=== PATIENT | male | born 1985 | race Caucasian/White ===

== ENCOUNTER → 2016-11-30 | Outpatient (CLI) | payer BC ==
[~2016-11-30] MED LIST: AMOX1TAB43 PO; ATV/1 PO; BISA1TAB15 PO; CEFP200T14 PO; CETI10TA84 PO; COENZYME B COMPLEX PO; CRANCAP PO; DEXL30CA5 PO; DEXL60CA4 PO; DOCU100C31 PO; ESCI1TAB10 PO; FLUC100T4 PO; GABA600T PO; IBUP-1050 PO; METH10TA2 PO; MITOCORE PO; OXYC-57 PO; OXYC1TAB3 PO; SENN-56 PO; VALA500T39 PO; ZNTT/150 PO; [UNRECOGNIZED DRUG - OTHER] PO; [UNRECOGNIZED DRUG - OTHER] PO; [UNRECOGNIZED DRUG - OTHER] PO; [UNRECOGNIZED DRUG - OTHER] PO; [UNRECOGNIZED DRUG - OTHER] PO; [UNRECOGNIZED DRUG - OTHER] PO; dexamethasone PO
--- NOTE | 2016-11-30 15:09 | DIAGNOSTIC IMAGING REPORT ---
(RENAL)RETROPERITONEA COMP HISTORY: Lymphoma ACUTE RENAL FAILURE, NON- HODGKIN LYMPHOMA COMPARISON: None. FINDINGS: Right kidney: Maximum dimension 13.7 cm. Mild fullness right renal collecting system. Hypoechoic nodules throughout the entire right kidney with the largest measuring 5 cm lower pole. Normal corticomedullary differentiation and cortical thickness. Left kidney: Maximum dimension 12.9 cm. No evidence for hydronephrosis. Hypoechoic nodules at the lower and mid pole region measuring 2.5 and 2.2 cm are directly. Normal corticomedullary differentiation and cortical thickness. Bladder: No bladder wall thickening. The bilateral ureteral jets were identified. IMPRESSION: Multinodular appearance to the kidneys bilaterally. 2. Given the patient's history is impossible to entirely exclude the possibility of neoplastic changes. Either MRI of the kidneys or multi phase CT evaluation kidneys suggested as initial follow-up depending on renal function parameters. The above report was generated using voice recognition software. It may contain grammatical, syntax or spelling errors. Electronically signed by: Ivan Moreno M.D. 11/30/2016 3:08 PM Dictated Date/Time: 11/30/2016 3:05 PM
== END | disposition home or self-care (01) ==
LOC: C.ULTR 14:31
PROVIDERS: ATTEND Internal Medicine Hematology & Oncology
DX: C83.35 Diffuse large B-cell lymphoma, lymph nodes of inguinal region and lower limb (principal)

== ENCOUNTER 2016-12-15 00:08 | Inpatient (IN) | payer BC ==
[~2016-12-15] VITALS: Ht 185.4 cm; Wt 93.1 kg
[2016-12-15] VITALS (7 sets, daily range): BP systolic 105–131; BP diastolic 61–72; PULSE 76–89; TEMP 36.7–37.2; O2SAT 96–100; Ht 185.4 cm; Wt 93.1 kg
[~2016-12-15 00:08] MED LIST changes: -ATV/1 PO; -BISA1TAB15 PO; -CEFP200T14 PO; -COENZYME B COMPLEX PO; -CRANCAP PO; -DEXL30CA5 PO; -DOCU100C31 PO; -ESCI1TAB10 PO; -GABA600T PO; -METH10TA2 PO; -MITOCORE PO; -OXYC1TAB3 PO; -SENN-56 PO; -VALA500T39 PO; -[UNRECOGNIZED DRUG - OTHER] PO; -[UNRECOGNIZED DRUG - OTHER] PO; -[UNRECOGNIZED DRUG - OTHER] PO; -[UNRECOGNIZED DRUG - OTHER] PO; -[UNRECOGNIZED DRUG - OTHER] PO; -[UNRECOGNIZED DRUG - OTHER] PO; -dexamethasone PO
[2016-12-15] MEDS ORDERED: ACETAMINOPHEN 500 MG TAB PO STA (00:52)
--- NOTE | 2016-12-15 00:54 | EMERGENCY ROOM VISIT NOTE ---
History Report prepared by Alie: Kian Crawford Under the Supervision of: Dr. Jessie Robert D.O. First contact with patient: 00:17 Chief Complaint: FEVER Stated Complaint: CANCER PATIENT, FEVER History of Present Illness The patient is a 31 year old male who presents to the Emergency Room with complaints of a constant fever starting earlier tonight. The patient states that he has a history of lymphoma, and he has no immune system from being on chemotherapy. The patient states that he talked to his oncologist, and they stated that if he got a fever, then he should come to the ED for evaluation. The patient additionally is complaining of a sore throat and chills, though he denies any runny nose. The patient additionally states that he has been getting red spots on his chest, abdomen, and lower extremities. He additionally states that he has rib pain due to a cracked rib from the lymphoma. The patient states that he is currently on chemotherapy, and he has done two different clinical trials. He additionally states that he is on a bowel regimen. He denies any urinary symptoms or hematochezia. The patient states that he had a Neupogen shot two days ago and Neulasta around 1330 today. The patient states that his son is in daycare, and he currently has a runny nose. Source of History: patient Onset: earlier tonight Position: other (global) Quality: other (fever) Timing: constant Associated Symptoms: + chills, + sorethroat, No hematochezia, No urinary symptoms Review of Systems See HPI for pertinent positives & negatives. A total of 10 systems reviewed and were otherwise negative. Past Medical & Surgical Medical Problems: (1) GERD (gastroesophageal reflux disease) (2) Lymphoma (3) Neutropenic fever Surgical Problems: (1) History of liver biopsy Family History Cancer Heart disease Social History Smoking Status: Never Smoker Marital Status: Housing Status: lives with significant other Occupation Status: employed Current/Historical Medications Scheduled Amoxicillin & Pot Clavulanate (Amoxicillin/Clavulanate P), 1 TAB PO Q12 Cranberry-Milk Thistle (Liver & Kidney Cleanser), 1 CAP PO AMHS Dexlansoprazole (Dexilant), 60 MG PO QAM Docusate Sodium (Docusate Sodium), 100 MG PO QAM Docusate Sodium (Docusate Sodium), 200 MG PO HS Escitalopram Oxalate (Lexapro), 20 MG PO QAM Fluconazole (Diflucan), 200 MG PO DAILY Gabapentin (Neurontin), 600 MG PO Q8 Lorazepam (Ativan), 1 MG PO HS Methadone Hcl (Dolophine), 10 MG PO Q8 Sennosides (Senna-Lax), 2 TABS PO AMHS Valacyclovir Hcl (Valtrex), 500 MG PO QAM [adek-pro k-102], 2 CAP PO QAM [coenzyme b-complex], 1 CAP PO QAM [coloctrum-ld], 2 CAP PO AMHS [lipotropix], 2 CM PO QAM [mitocore], 2 CAP PO AMHS [reacted zinc], 2 CAP PO QAM [renatrophin pmg], 2 CAP PO QAM [tribulus complex], 2 CAP PO QAM Scheduled PRN Bisacodyl (Bisacodyl), 1 TAB PO QAM PRN for Constipation Bisacodyl (Bisacodyl), 2 TAB PO HS PRN for Constipation Dexlansoprazole (Dexilant), 30 MG PO HS PRN for gerd Oxycodone Immediate Rel Tab (Roxicodone Ir), 10 MG PO Q8 PRN for Pain Allergies Coded Allergies: Prochlorperazine (Verified Allergy, Severe, change in mental status, ) Erythromycin (Verified Allergy, Intermediate, GI SYMPTOMS, 12/15/16) Physical Exam Vital Signs Date Time Temp Pulse Resp B/P (MAP) Pulse Ox O2 Delivery O2 Flow Rate FiO2 12/15/16 02:00 95 16 122/68 99 Room Air 12/15/16 00:10 38.8 100 16 121/73 100 Room Air Physical Exam HEENT: Head - normocephalic and atraumatic Pupils are equal, round, and reactive to light. Extraocular eye muscles are intact, and sclera are anicteric. Nose - moist nasal mucosa without discharge. Mouth - moist buccal mucosa. Oropharynx is nonerythematous and there is no tonsillar exudate or edema noted. Neck: Supple; no JVD, nuchal rigidity, cervical lymphadenopathy. Heart: tachycardic rate and rhythm. There is a normal S1 and S2 with no murmurs , clicks, or gallops appreciated. Lungs: Clear to auscultation bilaterally with no wheezes, rales, or rhonchi. Abdomen: Soft, completely nontender, nondistended, with good bowel sounds. There are no palpable pulsatile masses or hepatosplenomegaly. There is no guarding, rigidity, or rebound noted. Extremities: No evidence of cyanosis, clubbing, or edema. There are easily palpable peripheral pulses. Skin: Erythematous, blanchable, and macular lesions concentrated on the anterior chest and abdomen, and a couple on his lower extremities. Surgical incision on the left axilla appears well healing. Multiple indurated lymph nodes over the left flank. Medical Decision & Procedures ER Provider Diagnostic Interpretation: X-ray results as stated below per interpretation by me: Lymphadenopathy in the left lateral chest wall. Narrow mediastinum. Hilar lymphadenopathy. Accessed port in the right upper chest. Laboratory Results Test 12/15/16 00:37 12/15/16 00:40 12/15/16 00:50 12/15/16 01:20 Bedside Lactic Acid Venous 1.54 mmol/L (0.90-1.70) Anisocytosis PRESENT Prothrombin Time 10.7 SECONDS (9.0-12.0) Prothromb Time International Ratio 1.0 (0.9-1.1) Influenza Type A Antigen Neg for Influ A (NEG) Influenza Type B Antigen Neg for Influ B (NEG) Urine Color YELLOW Urine Appearance CLEAR (CLEAR) Urine pH 5.5 (4.5-7.5) Urine Specific [place] 1.014 (1.000-1.030) Urine Protein NEG (NEG) Urine Glucose (UA) NEG (NEG) Urine Ketones NEG (NEG) Urine Occult Blood NEG (NEG) Urine Nitrite NEG (NEG) Urine Bilirubin NEG (NEG) Urine Urobilinogen NEG (NEG) Urine Leukocyte Esterase NEG (NEG) Urine WBC (Auto) 1-5 /hpf (0-5) Urine RBC (Auto) 0-4 /hpf (0-4) Urine Hyaline Casts (Auto) 0 /lpf (0-5) Urine Epithelial Cells (Auto) 0-5 /lpf (0-5) Urine Bacteria (Auto) NEG (NEG) Medications Administered Medications (Trade) Dose Ordered Sig/Sidney Route Start Time Stop Time Status Last Admin Dose Admin Acetaminophen (Tylenol Tab) 1,000 mg NOW STAT PO 12/15/16 00:52 12/15/16 00:53 PR 12/15/16 01:04 1,000 MG Imipenem/ Cilastatin Sodium 500 mg/Dextrose 110 ml @ 100 mls/hr NOW STAT IV 12/15/16 01:57 12/15/16 03:02 DC 12/15/16 01:57 100 MLS/HR Vancomycin HCl 1000 mg/Sodium Chloride 270 ml @ 125 mls/hr NOW STAT IV 12/15/16 02:00 12/15/16 04:09 DC 12/15/16 03:11 125 MLS/HR Procedure Tylenol Tab PO. Imipenem/ Cilastin Sodium 500mg/ Dextrose IV, Vancomycin HCl 1000mg/ Sodium Chloride IV ED Course 0047: Past medical records reviewed. The patient was evaluated in room B7. A complete history and physical exam was performed. I reviewed the patient's labs from 12/13,and at that time he had a white blood cells of 0.7, hemoglobin of 7.8 , hematocrit of 24.4, and his absolute neutrophil count was 50. His port was accessed. 0052: Tylenol Tab 1000mg PO. A septic protocol was performed. The patient had a chest x-ray. 0157: Imipenem/ Cilastin Sodium 500mg/ Dextrose 110ml @ 100mls/hr IV 0200: Vancomycin HCl 1000mg/ Sodium Chloride 270ml @ 125mls/hr IV 0203: I reevaluated the patient, and I discussed his labs and results. I discussed the treatment plan, and he was agreeable. 0214: Discussed the patient's case with Dr. Reina. The patient will be evaluated for further management. Medical Decision The patient is a 31 year old male who presents to the ED with a fever. Differential diagnosis includes neutropenic fever, sepsis, pharyngitis, pneumonia. Lab results show: White count of 1.13, absolute neutrophil count of 0, hemoglobin of 7, hematocrit of 21.2, flu swab negative, BUN 29, creatinine of 2.0, lactic acid 1.54. glucose 117, LFT normal, and UA is negative. This is a 31-year-old male patient with recurrent lymphoma who presents to the emergency department with a fever. The patient was noted to be neutropenic will from a couple of days ago as he is currently on chemotherapy. His oncologist directed him here for fever workup. No specific source could be identified, however the patient's absolute neutrophil count was 0. I discussed the case with the [facility] hospitalist. Prolactin antibiotics were started. He was noted to have an elevated BUN and creatinine. Crystalloid therapy will be started. Medication Reconcilliation Current Medication List: was personally reviewed by me Blood Pressure Screening Patient's blood pressure: Normal blood pressure Consults Time Called: 0205 Consulting Physician: Dr. Reina Returned Call: [phone] Discussed the patient's case with Dr. Reina. The patient will be evaluated for further management. Impression Primary Impression: Neutropenic fever Additional Impression: Acute kidney injury Scribe Attestation The scribe's documentation has been prepared under my direction and personally reviewed by me in its entirety. I confirm that the note above accurately reflects all work, treatment, procedures, and medical decision making performed by me. Departure Information Dispostion Being Evaluated By Hospitalist Referrals Dorian Franz M.D. (PCP) Patient Instructions My [facility] Health Problem Qualifiers
[2016-12-15 01:26] LABS: BUN/CREATININE RATIO 14.5 (10-20); CALCIUM 8.4 mg/dl (8.5-10.1); POTASSIUM 3.9 mmol/L (3.5-5.1)
[2016-12-15 01:29] LABS: ALB/GLOB RATIO 0.9 (0.9-2)
[2016-12-15 01:32] LABS: HEMATOCRIT 21.2 % (42-52); MEAN CELL VOLUME 80.3 fL (80-100); MEAN CORPUSCULAR HEMOGLOBIN 26.5 pg (25-34); MEAN PLATELET VOLUME 8.1 fL (7.4-10.4); PLATELET COUNT 223 K/uL (130-400); RED BLOOD COUNT 2.64 M/uL (4.7-6.1); WHITE BLOOD COUNT 1.13 K/uL (4.8-10.8)
[2016-12-15 01:33] LABS: URINE APPEARANCE CLEAR (CLEAR); URINE BILIRUBIN NEG (NEG); URINE COLOR YELLOW; URINE EPITHELIAL CELL AUTO 0-5 /lpf (0-5); URINE NITRITE NEG (NEG); URINE PH 5.5 (4.5-7.5); URINE SPECIFIC GRAVITY 1.014 (1.000-1.030); UROBILINOGEN NEG (NEG); ZZUR CULT IF INDIC CLEAN CATCH NO
[2016-12-15 01:33] LABS: PARTIAL THROMBOPLASTIN RATIO 1.9; PROTHROMBIN TIME (PATIENT) 10.7 SECONDS (9.0-12.0)
[2016-12-15 01:35] LABS: ANISOCYTOSIS PRESENT
[2016-12-15 01:40] LABS: BASO ABS # 0.07 K/uL (0-0.2); BASOPHIL % 5.9 % (0-2); COMPLETE YES; EOSINOPHIL % 13.9 %; LYMPH ABS # 0.46 K/uL (1.2-3.4); LYMPHOCYTE % 40.6 %
[2016-12-15 01:41] LABS: MANUAL MICROSCOPIC REQUIRED? NO; REVIEW REQ? NO
[2016-12-15] MEDS ORDERED: IMIPENEM/CILASTATIN IV 500 MG in DEXTROSE 5% 100ML 100 ML IV STA (01:57)
[2016-12-15] MEDS ORDERED: DOCU100C31 PO ×2 (01:59)
[2016-12-15] MEDS ORDERED: ESCI1TAB10 PO (01:59)
[2016-12-15] MEDS ORDERED: BISA1TAB15 PO ×2 (02:00)
[2016-12-15] MEDS ORDERED: SENN-56 PO (02:00)
[2016-12-15] MEDS ORDERED: VANCOMYCIN INJ 1,000 MG in SODIUM CHLORIDE 0.9% 250ML 250 ML IV STA (02:00)
[2016-12-15] MEDS ORDERED: VALA500T39 PO (02:00)
[2016-12-15] MEDS ORDERED: ATV/1 PO (02:02)
[2016-12-15] MEDS ORDERED: DEXL30CA5 PO (02:02)
[2016-12-15] MEDS ORDERED: GABA600T PO (02:03)
[2016-12-15] MEDS ORDERED: METH10TA2 PO (02:03)
[2016-12-15] MEDS ORDERED: OXYC1TAB3 PO (02:03)
[2016-12-15] MEDS ORDERED: [UNRECOGNIZED DRUG - OTHER] PO (02:08)
[2016-12-15] MEDS ORDERED: [UNRECOGNIZED DRUG - OTHER] PO (02:08)
[2016-12-15] MEDS ORDERED: MITOCORE PO (02:08)
[2016-12-15] MEDS ORDERED: [UNRECOGNIZED DRUG - OTHER] PO (02:11)
[2016-12-15] MEDS ORDERED: CRANCAP PO (02:11)
[2016-12-15] MEDS ORDERED: [UNRECOGNIZED DRUG - OTHER] PO (02:11)
[2016-12-15] MEDS ORDERED: [UNRECOGNIZED DRUG - OTHER] PO (02:11)
[2016-12-15] MEDS ORDERED: COENZYME B COMPLEX PO (02:12)
[2016-12-15] MEDS ORDERED: [UNRECOGNIZED DRUG - OTHER] PO (02:12)
[2016-12-15] MEDS ORDERED: LEVOFLOXACIN CONSULT ACTIVE PRN (02:15)
[2016-12-15] MEDS ORDERED: ACETAMINOPHEN 325 MG TAB PO PRN (02:45)
[2016-12-15] MEDS ORDERED: ONDANSETRON INJ 2 MG/ML 2 ML VIAL IV PRN (02:45)
[2016-12-15] MEDS ORDERED: SODIUM CHLORIDE 0.9% 1000ML 1,000 ML, SODIUM CHLORIDE 0.9% 1000ML 1,000 ML IV STA (03:54)
[2016-12-15] MEDS ORDERED: PIPERACILL/TAZOBAC IV 4.5 GM in DEXTROSE 5% 100ML IV ONE (04:00)
[2016-12-15] MEDS ORDERED: PIPERACILL/TAZOBAC IV 4.5 GM in DEXTROSE 5% 100ML 100 ML IV SCH (04:00)
[2016-12-15] MEDS ORDERED: PIPERACILL/TAZOBAC CONSULT ACTIVE PRN (04:00)
[2016-12-15] MEDS ORDERED: LACTATED RINGER'S 1000ML 1,000 ML IV SCH (04:00)
[2016-12-15] MEDS ORDERED: VANCOMYCIN CONSULT ACTIVE PRN (04:15)
[2016-12-15] MEDS: LEVOFLOXACIN / D5W 750 MG in PREMIXED IN D5W 150 ML IV SCH (04:26)
[2016-12-15] MEDS ORDERED: VANCOMYCIN INJ 1,500 MG in SODIUM CHLORIDE 0.9% 500ML 500 ML IV SCH (05:00)
--- NOTE | 2016-12-15 05:39 | DIAGNOSTIC IMAGING REPORT ---
CHEST ONE VIEW PORTABLE CLINICAL HISTORY: 31 years-old Male presenting with Sepsis, history of lymphoma. TECHNIQUE: Portable upright AP view of the chest was obtained. COMPARISON: PET/CT from 01/16/2016. FINDINGS: Right internal jugular Mediport has been accessed and terminates in the SVC. Cardiomediastinal silhouette normal. Large lobular opacities project over the peripheral made and lower left lung likely correlating to extrapleural and chest wall lymphomatous disease seen on most recent PET from December 2015. The presence of opacity in the peripheral left mid lung region does not correlate with exact site of lymphomatous involvement on prior PET, suggesting new disease. Apart from these opacities, no other focal infiltrate. No large effusion or pneumothorax. Osseous structures normal. Upper abdomen normal. IMPRESSION: 1. Evidence of suspected extrapleural/chest wall lymphomatous involvement in the left mid and lower chest. The distribution suggests progression of disease from prior PET/CT in December 2015. 2. No convincing evidence of acute cardiopulmonary disease. Electronically signed by: Eber Panchal M.D. 12/15/2016 5:38 AM Dictated Date/Time: 12/15/2016 5:35 AM
--- NOTE | 2016-12-15 06:08 | History and Physical ---
History & Physical Date & Time of Service: Dec 15, 2016 at 02:18 Chief Complaint: Cancer Patient, Fever Primary Care Physician: Dorian Franz M.D. History of Present Illness Source: patient, clinic records, hospital records Mr Reyes is a 31 year old male who presents to the ER with Fever. He has a history of large B cell lymphoma currently undergoing chemotherapy under an oncologist in [place] but also followed by Dr Carbone in [place]. He notes have a sore throat that started on Saturday in addition his 2 year old son has had nasal congestion recently. Otherwise no known sick contacts. He has been getting red blanching raised macules on his chest back and shoulders over the past week which his oncologist plans to biopsy due to concern this is his lymphoma metastasizing. He denies any neck stiffness, headache, nausea, vomiting, abdominal pain, diarrhea or urinary symptoms. He has chronic pain in his suprapubic region but this remains unchanged. Past Medical/Surgical History Medical Problems: (1) GERD (gastroesophageal reflux disease) Status: Chronic (2) Lymphoma Status: Chronic Surgical Problems: (1) History of liver biopsy Status: Resolved Family History Cancer Heart disease Social History Smoking Status: Never Smoker Smokeless Tobacco Use: No Alcohol Use: none Drug Use: none Marital Status: Housing status: lives with family Occupational Status: employed Immunizations History of Influenza Vaccine: No History of Tetanus Vaccine?: Unknown History of Pneumococcal: Unknown History of Hepatitis B Vaccine: Unknown Multi-Drug Resistant Organisms History of MDRO: No Allergies Coded Allergies: Prochlorperazine (Verified Allergy, Severe, change in mental status, ) Erythromycin (Verified Allergy, Intermediate, GI SYMPTOMS, 12/15/16) Home Medications Scheduled Amoxicillin & Pot Clavulanate (Amoxicillin/Clavulanate P), 1 TAB PO Q12 Cranberry-Milk Thistle (Liver & Kidney Cleanser), 1 CAP PO AMHS Dexlansoprazole (Dexilant), 60 MG PO QAM Docusate Sodium (Docusate Sodium), 100 MG PO QAM Docusate Sodium (Docusate Sodium), 200 MG PO HS Escitalopram Oxalate (Lexapro), 20 MG PO QAM Fluconazole (Diflucan), 200 MG PO DAILY Gabapentin (Neurontin), 600 MG PO Q8 Lorazepam (Ativan), 1 MG PO HS Methadone Hcl (Dolophine), 10 MG PO Q8 Sennosides (Senna-Lax), 2 TABS PO AMHS Valacyclovir Hcl (Valtrex), 500 MG PO QAM [adek-pro k-102], 2 CAP PO QAM [coenzyme b-complex], 1 CAP PO QAM [coloctrum-ld], 2 CAP PO AMHS [lipotropix], 2 CM PO QAM [mitocore], 2 CAP PO AMHS [reacted zinc], 2 CAP PO QAM [renatrophin pmg], 2 CAP PO QAM [tribulus complex], 2 CAP PO QAM Scheduled PRN Bisacodyl (Bisacodyl), 1 TAB PO QAM PRN for Constipation Bisacodyl (Bisacodyl), 2 TAB PO HS PRN for Constipation Dexlansoprazole (Dexilant), 30 MG PO HS PRN for gerd Oxycodone Immediate Rel Tab (Roxicodone Ir), 10 MG PO Q8 PRN for Pain Review of Systems Constitutional: + chills Eyes: No worsening of vision, No eye pain ENT: No hearing loss Respiratory: + cough (chronic), No sputum, No wheezing, No shortness of breath , No dyspnea on exertion Abdomen: + constipation (on bowel regimen secondary to pain medications), No pain, No nausea, No vomiting, No diarrhea Musculoskeletal: + muscle pain (left chest), No joint pain Genitourinary - Male: No hematuria, No dysuria, No urinary frequency Endocrine: + fatigue, No excessive thirst, No excessive urination Hematologic / Lymphatic: No abnormal bleeding/bruising Integumentary: + rash (small erythematous blanching macules on chest, back and shoulders) Physical Exam Vital Signs Date Time Temp Pulse Resp B/P (MAP) Pulse Ox O2 Delivery O2 Flow Rate FiO2 12/15/16 00:10 38.8 100 16 121/73 100 Room Air General Appearance: WD/WN, no apparent distress (appears tired) Head: normocephalic, atraumatic Eyes: normal inspection, PERRL, EOMI ENT: hearing grossly normal, pharynx normal (no tonsillar enlargement or exudate) Neck: supple Respiratory/Chest: chest non-tender, lungs clear, no respiratory distress, no accessory muscle use, + decreased breath sounds (left sided decreased) Cardiovascular: regular rate, rhythm, no murmur, normal peripheral pulses Abdomen/GI: normal bowel sounds, soft, + tenderness (mild suprapubic tenderness , no rebound or guarding) Back: no CVA tenderness Extremities/Musculoskelatal: no calf tenderness, normal capillary refill, no pedal edema 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0 32-36 g/dl Platelet Count 223 130-400 K/uL Mean Platelet Volume 8.1 7.4-10.4 fL RDW Standard Deviation 49.3 36.4-46.3 fL RDW Coefficient of Variation 17.1 11.5-14.5 % Neutrophils % (Manual) 0.0 % Lymphocytes % (Manual) 40.6 % Monocytes % (Manual) 39.6 % Eosinophils % (Manual) 13.9 % Basophils % (Manual) 5.9 0-2 % Neutrophils # (Manual) 0.00 1.4-6.5 K/uL Total Absolute Neutrophils 0.00 1.4-6.5 K/uL Lymphocytes # (Manual) 0.46 1.2-3.4 K/uL Total Absolute Lymphocytes 0.46 1.2-3.4 K/uL Monocytes # (Manual) 0.45 0.11-0.59 K/uL Eosinophils # (Manual) 0.16 0-0.5 K/uL Basophils # (Manual) 0.07 0-0.2 K/uL Anisocytosis PRESENT Prothrombin Time 10.7 9.0-12.0 SECONDS Prothromb Time International Ratio 1.0 0.9-1.1 Activated Partial Thromboplast Time 50.5 21.0-31.0 SECONDS Partial Thromboplastin Ratio 1.9 Sodium Level 134 136-145 mmol/L Potassium Level 3.9 3.5-5.1 mmol/L Chloride Level 99 98-107 mmol/L Carbon Dioxide Level 26 21-32 mmol/L Anion Gap 9.0 3-11 mmol/L Blood Urea Nitrogen 29 7-18 mg/dl Creatinine 2.00 0.60-1.40 mg/dl Est Creatinine Clear Calc Drug Dose 64.5 ml/min Estimated GFR () 49.4 Estimated GFR (Non- 42.6 BUN/Creatinine Ratio 14.5 10-20 Random Glucose 117 70-99 mg/dl Calcium Level 8.4 8.5-10.1 mg/dl Total Bilirubin 0.5 0.2-1 mg/dl Aspartate Amino Transf (AST/SGOT) 22 15-37 U/L Alanine Aminotransferase (ALT/SGPT) 19 12-78 U/L Alkaline Phosphatase 99 45-117 U/L Total Protein 5.9 6.4-8.2 gm/dl Albumin 2.8 3.4-5.0 gm/dl Globulin 3.1 2.5-4.0 gm/dl Albumin/Globulin Ratio 0.9 0.9-2 Influenza Type A Antigen Neg for Influ A NEG Influenza Type B Antigen Neg for Influ B NEG Urine Color YELLOW Urine Appearance CLEAR CLEAR Urine pH 5.5 4.5-7.5 Urine Specific [place] 1.014 1.000-1.030 Urine Protein NEG NEG Urine Glucose (UA) NEG NEG Urine Ketones NEG NEG Urine Occult Blood NEG NEG Urine Nitrite NEG NEG Urine Bilirubin NEG NEG Urine Urobilinogen NEG NEG Urine Leukocyte Esterase NEG NEG Urine WBC (Auto) 1-5 0-5 /hpf Urine RBC (Auto) 0-4 0-4 /hpf Urine Hyaline Casts (Auto) 0 0-5 /lpf Urine Epithelial Cells (Auto) 0-5 0-5 /lpf Urine Bacteria (Auto) NEG NEG Microbiology Results 12/15/16 Blood Culture, Received Pending 12/15/16 Blood Culture, Received Pending 12/15/16 Group A Streptococcus Screen - Final, Resulted SPECIMEN NEGATIVE FOR GROUP A BETA ST... 12/15/16 Group A Streptococcus Screen (JAMES), Resulted Pending Diagnostic Radiology CHEST ONE VIEW PORTABLE CLINICAL HISTORY: 31 years-old Male presenting with Sepsis, history of lymphoma. TECHNIQUE: Portable upright AP view of the chest was obtained. COMPARISON: PET/CT from 01/16/2016. FINDINGS: Right internal jugular Mediport has been accessed and terminates in the SVC. Cardiomediastinal silhouette normal. Large lobular opacities project over the peripheral made and lower left lung likely correlating to extrapleural and chest wall lymphomatous disease seen on most recent PET from December 2015. The presence of opacity in the peripheral left mid lung region does not correlate with exact site of lymphomatous involvement on prior PET, suggesting new disease. Apart from these opacities, no other focal infiltrate. No large effusion or pneumothorax. Osseous structures normal. Upper abdomen normal. IMPRESSION: 1. Evidence of suspected extrapleural/chest wall lymphomatous involvement in the left mid and lower chest. The distribution suggests progression of disease from prior PET/CT in December 2015. 2. No convincing evidence of acute cardiopulmonary disease. Electronically signed by: Eber Panchal M.D. 12/15/2016 5:38 AM Dictated Date/Time: 12/15/2016 5:35 AM Impression Assessment and Plan 31 year old male with large B cell lymphoma presents with neutropenic fever Neutropenic fever - sore throat appears to be source (strep throat negative) vs. due to his lymphoma - Treat empirically with vancomycin, Zosyn and Levaquin given Neutrophils = 0 - Neulasta given already today - Consolidation present on CXR however differential includes infarct vs. mass. - CT chest - will perform without contrast due to renal function. Consider V/Q scan in the morning if appears consistent with infarct - Consult pulmonology ?bronchoscopy B Cell Lymphoma - Consult heme/onc - continue O/P medications GERD - switch dexlansoprazole to pantoprazole as per formulary VTE Prophylaxis - PTT within therapeutic range, likely hypercoagulable however from lymphoma - Hold off chemical prophylaxis for now pending above studies - SCDs + TEDs Code - Full code for now but will need to be fully discussed in the morning Disposition - Admit to med/surg Attending Addendum: I have physically seen and examined this patient, have supervised the medical residents activities, and agree with the H&P as noted above with the following exceptions as noted. The patient presents to the emergency department with the development of a fever and sore throat, with sick exposure being that of his 2-year-old son with nasal congestion. He is presently undergoing chemotherapy for large B-cell lymphoma, and has lesions on the skin that a biopsy is being arranged for to assess for possible metastases from his lymphoma. The patient denies chest pain, palpitations, shortness of breath, cough, lower extremity swelling, vision change, hearing change, chills, sweats, weight change , nausea, vomiting, diarrhea or constipation, abdominal pain, pelvic pain, blood in urine or stool, dysuria, urinary frequency or urgency, lightheadedness , dizziness, headache, memory loss, abnormal bruising or bleeding, imbalance, focal or generalized weakness, numbness or tingling in arms or legs, generalized arthralgias or myalgias, back or neck pain, night sweats, or allergy symptoms. The review of systems is otherwise negative other than for that already noted above, and at least 10 systems have been reviewed. The patient is awake, well-developed and adequately nourished, alert and oriented 3, normocephalic and atraumatic, lying in bed and in no acute distress. HEENT--PERRL, EOMI, mucous membranes and oropharynx dry. Neck--supple, no JVD or bruits, thyroid normal, trachea midline, no adenopathy. Heart--normal S1 and S2, no extra beats, no murmurs, rubs or gallops. Lungs--clear bilaterally with good air movement, no respiratory distress, no accessory muscle use. Abdomen--normal bowel sounds and soft, nontender and nondistended, no hernias or masses, no organomegaly. Extremities--no cyanosis, clubbing or edema. There are good distal pulses b/l. Dermatologic--red macular rash on chest, back and shoulders that joana. Neurologic--cranial nerves II through XII grossly intact, motor and sensory examination normal. Rheumatologic--normal range of motion, nontender, muscles and joints. Psychiatric--normal affect. Assessment and Plan: 1. Neutropenic fever/B-cell lymphoma undergoing chemotherapy--the patient will be admitted to the medical floor. Place on vancomycin IV, Zosyn IV and Levaquin IV for empiric treatment. Patient reportedly was already given Neulasta today. CT of the chest to further assess consolidation in left lung. We'll order a VQ scan to be done morning it is a suggestion of pulmonary infarct on CT. Keep nothing by mouth after midnight. Consult pulmonology for treatment and assessment for possible bronchoscopy. Consult oncology, as patient follows locally with Dr. Carbone, in addition to oncologist in [place]. 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 Y/N: Yes Risk Level: High Given or contraindicated: Dakotah Butts, SCD's Additional Copies To Dagoberto Carbone MD; Dorian Franz M.D. Resident Tracking Resident Involvement: Resident Care Provided Care Provided: Adult Hospital Medicine
[2016-12-15] MEDS ORDERED: BISACODYL 5 MG TABEC PO PRN (06:15)
[2016-12-15] MEDS ORDERED: OXYCODONE HCL IR 5 MG TAB (IMMEDIATE RELEASE) PO PRN (06:15)
--- NOTE | 2016-12-15 06:15 | DIAGNOSTIC IMAGING REPORT ---
(CHEST) THORAX WITHOUT CLINICAL HISTORY: 31 years-old Male presenting with Neutropenic sepsis, suspect chest, history of lymphoma. TECHNIQUE: Multidetector CT imaging of the chest was performed without the use of intravenous contrast. IV contrast: None. A dose lowering technique was used consistent with the principles of ALARA (as low as reasonably achievable). COMPARISON: PET/CT from 01/16/2016. CT DOSE (mGy.cm): The estimated cumulative dose is 397.61 mGy.cm. FINDINGS: [employer] topogram: Right internal jugular Mediport terminates in the SVC. On soft tissue windows, bilateral gynecomastia. Interval development of left axillary lymphadenopathy as well as mediastinal lymphadenopathy. Previously noted extrapleural/chest wall masses at the posterior inferior left chest wall have significantly grown. Interval development of associated osseous erosion of the posterior left inferior ribs. Normal aorta. Normal heart size. The intraventricular blood pool is less dense than the adjacent myocardium consistent with anemia. Small left pleural effusion. No pericardial effusion. Borderline hepatic steatosis. On lung windows, interval development of multifocal parenchymal disease with the greatest degree of disease burden in the left lower lobe with multiple large masses forming a conglomerate in the deep dependent portion of the left lower lobe. Pulmonary nodule also noted at the right lung base. Minimal additional pleural-based nodularity more superiorly along the posterior right lower lobe. Airways patent. On bone windows, osseous erosion of left inferior ribs secondary to adjacent soft tissue masses. This is also new from prior. IMPRESSION: 1. Significant interval progression of disease with increased size of left chest wall disease and new osseous erosion of left posterior inferior ribs. Additionally, interval development of left axillary lymphadenopathy and bilateral, left greater than right, lung parenchymal disease. 2. Small left pleural effusion, which may also be metastatic. Electronically signed by: Eber Panchal M.D. 12/15/2016 6:14 AM Dictated Date/Time: 12/15/2016 6:09 AM
[2016-12-15 06:22] LABS: PARTIAL THROMBOPLASTIN RATIO 1.6
[2016-12-15 06:46] LABS: BUN/CREATININE RATIO 16.3 (10-20); CREATININE 1.7 mg/dl (0.60-1.40); POTASSIUM 3.7 mmol/L (3.5-5.1)
[2016-12-15 06:49] LABS: ALB/GLOB RATIO 0.9 (0.9-2)
[2016-12-15 06:53] LABS: LARGE PLATELETS 1+
[2016-12-15 06:57] LABS: BASO ABS # 0.02 K/uL (0-0.2); BASOPHIL % 3.2 % (0-2); COMPLETE YES; EOSINOPHIL % 19.4 %; HEMATOCRIT 19.7 % (42-52); LYMPHOCYTE % 40.8 %; MEAN CELL VOLUME 80.1 fL (80-100); MEAN CORPUSCULAR HEMOGLOBIN 26.4 pg (25-34); MEAN PLATELET VOLUME 7.5 fL (7.4-10.4); PLATELET COUNT 181 K/uL (130-400); RED BLOOD COUNT 2.46 M/uL (4.7-6.1); WHITE BLOOD COUNT 0.74 K/uL (4.8-10.8)
[2016-12-15] MEDS ORDERED: [UNRECOGNIZED DRUG - OTHER] PO SCH (08:00)
[2016-12-15] MEDS ORDERED: MITOCORE PO SCH (08:00)
[2016-12-15] MEDS ORDERED: [UNRECOGNIZED DRUG - OTHER] PO SCH (08:00)
[2016-12-15] MEDS ORDERED: [UNRECOGNIZED DRUG - OTHER] PO SCH (08:00)
[2016-12-15] MEDS ORDERED: COENZYME B COMPLEX PO SCH (08:00)
[2016-12-15] MEDS ORDERED: [UNRECOGNIZED DRUG - OTHER] PO SCH (08:00)
[2016-12-15] MEDS ORDERED: [UNRECOGNIZED DRUG - OTHER] PO SCH (08:00)
[2016-12-15] MEDS ORDERED: [UNRECOGNIZED DRUG - OTHER] PO SCH (08:00)
[2016-12-15] MEDS ORDERED: [UNRECOGNIZED DRUG - OTHER] PO SCH (08:00)
[2016-12-15] MEDS ORDERED: PANTOprazole SOD 40 MG TAB PO SCH (08:00)
[2016-12-15] MEDS: PIPERACILL/TAZOBAC IV 4.5 GM in DEXTROSE 5% 100ML IV SCH ×2 (08:23→15:44)
[2016-12-15] MEDS ORDERED: VANCOMYCIN INJ 1,000 MG in SODIUM CHLORIDE 0.9% 250ML 250 ML IV SCH (09:00)
[2016-12-15] MEDS: GABAPENTIN 600 MG TAB PO SCH ×2 (10:51→17:53)
[2016-12-15] MEDS: METHADONE HCL 10 MG TAB PO SCH ×2 (10:53→17:53)
[2016-12-15] MEDS: ESCITALOPRAM OXALATE 20 MG TAB PO SCH (10:55)
[2016-12-15] MEDS: DOCUSATE SODIUM 100 MG CAP PO SCH ×2 (10:55→20:05)
[2016-12-15] MEDS: SENNA 8.6 MG TAB PO SCH ×2 (10:56→20:05)
[2016-12-15] MEDS ORDERED: NURSING VERBAL MED ORDER ONE ×2 (11:15→13:15)
--- NOTE | 2016-12-15 12:28 | ONCOLOGY CONSULTATION ---
DATE OF CONSULTATION: 12/15/2016 DATE OF CONSULTATION: 12/15/2016 REASON FOR CONSULTATION: Neutropenic fever in a 31-year-old gentleman with refractory large B cell lymphoma. HISTORY OF PRESENT ILLNESS: Malik is a very pleasant but unfortunate 31-year-old gentleman well known to the [facility], currently under the care of Dr. Dagoberto Carbone for refractory non-Hodgkin's lymphoma. Over the past day or two developed low grade fever with really no other symptomatology. According to Malik he received rituximab at the [facility] within the past couple of weeks. In addition, his 2-year-old son developed what appears to be an upper respiratory infection and has been exposed to him. Upon admission, his peripheral blood counts confirm neutropenia, anemia and a normal platelet count. Cultures thus far have been negative. He was started on broad spectrum antibiotics and is presently hemodynamically stable. Malik unfortunately suffers from 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 He was originally treated with R-CHOP chemotherapy, enjoyed a complete remission for a period of about 3 months. He has received multiple chemotherapeutic regimens including R-ICE and hyperCVAD Apparently allogeneic peripheral blood stem cell transplant was attempted but again could not obtain adequate remission to proceed. He has also received rituximab, ibrutinib and Revlimid as well as the PD-L1 inhibitor pembrolizumab. He predominantly in cared for at the [facility] but informs me of an upcoming consultation at [facility] for 2 clinical trials which is scheduled later on this week. PAST MEDICAL HISTORY: 1. Positive for a refractory non-Hodgkin's lymphoma. 2. GERD. 3. History of liver biopsy. MEDICATIONS ON ADMISSION: Include Augmentin 1 tab p.o. q. 12 hours, ____ 60 mg p.o. every day, docusate sodium as needed, Lexapro 20 mg p.o. daily, fluconazole 200 mg p.o. every day, gabapentin 600 mg p.o. q. 8 hours, lorazepam 1 mg p.o. at bedtime, methadone 10 mg p.o. q. 8 hours, Senna 2 tablets p.o. q.a.m. and prior to bedtime, Valtrex 500 mg p.o. q.a.m., Tribulus complex 2 capsules p.o. q.a.m., renotrophin 2 capsules p.o. q.a.m., zinc 2 capsules p.o. q.a.m., Mitocore 2 capsules p.o. q.a.m. and at bedtime, Lipotropic 2 capsules p.o. q.a.m., enzyme B complex 1 capsule p.o. every day. ALLERGIES: COMPAZINE AND ERYTHROMYCIN. SOCIAL HISTORY: The patient is employed as an aviation electrical technician, , with 2-year-old child, nonsmoker, nondrinker. FAMILY HISTORY: Positive for cancer and heart disease. REVIEW OF SYSTEMS: As per HPI, positive for fever and chills, no night sweats, no anorexia or weight loss, presently. SKIN: No rashes or lesions. No history of dermatoses. HEAD, EYES, EARS, NOSE, AND THROAT: Negative for headaches, lightheadedness or dizziness. No visual or hearing deficits. No sinus symptoms. Positive for sore throat, no dysphagia. LYMPH: No present palpable lymphadenopathy. CARDIAC: Negative for coronary artery disease, no angina or palpitations. PULMONARY: Negative for COPD. No shortness of breath, dyspnea or orthopnea. No cough or hemoptysis. GASTROINTESTINAL: Negative for abdominal pain, nausea, vomiting, diarrhea or constipation, hematochezia or melena stools. GENITOURINARY: No hematuria, dysuria, urinary incontinence. PSYCHIATRIC: Positive for anxiety and depression. ENDOCRINE: Negative for diabetes or thyroid disease. NEUROLOGIC: Negative for seizure, stroke, or migraine headache. HEMATOLOGIC: Positive for neutropenia and chemotherapy induced anemia. PHYSICAL EXAMINATION: GENERAL: Very pleasant, well developed and nourished 31-year-old gentleman in no acute distress. VITAL SIGNS: Temperature 37, pulse 88, respiratory rate 16, blood pressure 105/63. SKIN: Warm, dry, noncyanotic without petechia, rash or ecchymosis. HEAD: Atraumatic, normocephalic. EYES: PERRLA, EOMI. Sclerae nonicteric. No conjunctival injection. Nares patent without rhinorrhea or discharge. Throat is clear. Tongue is midline. Mucous membranes are moist. NECK: Supple without JVD or thyromegaly. LYMPH: No cervical, supraclavicular, axillary palpable nodes. HEART: Regular rate and rhythm. No clicks, rubs, murmurs or gallops. LUNGS: Clear to auscultation bilaterally. Healing surgical wound in the left lateral hemithorax. ABDOMEN: Soft, nontender, nondistended, without palpable hepatosplenomegaly. EXTREMITIES: No calf tenderness or swelling. No clubbing, cyanosis or edema. NEUROLOGICALLY: He is awake, alert and oriented x3. Cranial nerves II-XII are grossly intact. RADIOGRAPHIC DATA: CT scan of the chest performed on admission reveals significant interval progression of disease with increased size of left chest wall disease and new osseous erosion in the left posterior inferior ribs. Additionally, interval development of left axillary lymphadenopathy bilateral, left greater than right, and lung parenchymal disease, small left pleural effusion is also noted. LABORATORY DATA: WBC count 740, hemoglobin 6.5, hematocrit 19.7%, platelet count 181,000. Sodium 138, potassium 3.7, chloride 104, carbon dioxide 27, BUN 28, creatinine 1.70. LFTs are otherwise unremarkable. IMPRESSION: 1. Neutropenic fever. 2. Refractory non-Hodgkin's lymphoma. 3. Anemia attributable to disease progression and chemotherapeutic effect. 4. Acute renal injury. PLAN: In summary, a very pleasant but unfortunate 31-year-old gentleman with refractory non-Hodgkin's lymphoma under the care of Dr. Dagoberto Carbone. The patient has been heavily pretreated since diagnosis was established in late 2014. Malik is currently under care of the [facility] and pending consultation with [facility] in [place] to discuss clinical trial. Obviously, his prognosis is exceedingly poor and radiographic studies done on admission confirm disease progression. Agree with current medical management utilizing broad-spectrum antibiotics and cultures of blood in urine are presently pending. Again, Malik has been heavily pretreated in the prospect of meaningful remission at this point appears bleak. He is full code at present. However, will ask Dr. Carbone to discuss long-term end of life disposition. From a supportive standpoint, continue IV hydration, perhaps 2 units of packed RBCs would be helpful. May consider incorporation of Neupogen should his neutrophil count continue to falter. Thank you very much for assisting us in the care of this very pleasant unfortunate and very complex gentleman. Thank you very much for allowing us to participate in his care. I will continue to follow him during his hospital stay. [facility]
[2016-12-15 13:37] LABS: HEMATOCRIT 22.3 % (42-52)
[2016-12-15] MEDS ORDERED: METHADONE HCL 10 MG TAB PO SCH (14:00)
[2016-12-15] MEDS ORDERED: GABAPENTIN 600 MG TAB PO SCH (14:00)
--- NOTE | 2016-12-15 14:45 | Pulmonary Consultation ---
History General Date of Service: Dec 15, 2016. Stated Complaint: Neutropenic Fever, Recurrent Lymphoma HPI The patient is a 31 year old male who presents to [facility] with complaints of Neutropenic Fever, Recurrent Lymphoma. The patient's primary care provider is Dorian Franz M.D.. 31-year-old gentleman admitted to the [facility] 12/15/2016 with a neutropenic fever. 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 Along with the patients fever he also notices a sore throat, chills and progressive red spot/hives on his chest, abdomen and lower extremities bilaterally. He also notes chronic rib pain from previous fracture. The patient is currently on chemotherapy and involved in to previous clinical trials. He does have a sick contact with his son having URI type symptoms. The patient and father were involved with conversation. We had a long conversation about his multiple drug regimens as well as progression over the last 2-4 months from his disease. 4 months ago the patient underwent VATS biopsy for progressive left sided nodular changes in the lung the pleura and involving the ribs. That biopsy was definitive for continued B-cell lymphoma. Patient does note some pleurisy with aggressive motions. He is also had progressive red raised rash is along his chest bilaterally and proximal extremities. The patient currently denies: Fever, chills, productive cough, chronic pleurisy Serum workup WBC: 0.74K Hemoglobin: 6.5 Hematocrit: 19.7 Platelet: 181K aPTT: 41.1 Cr: 2.001.70 Ca: 8.0 TP: 5.2 ALB: 2.4 Influ A&B: Negative Radiology Chest x-ray: 12/15/2016: Port in place, left midlung zone pleural opacifications VQ scan a 12/15/2016: Results pending CT thorax 12/15/2016: Multiple left upper lobe and left lower lobe nodules, some pleural-based Complete collapse of the LB 10 LB 9 regions Small pleural effusion associated with a left lower lobe infiltrates Appears to be bony ingrowth of a mass left sided inferior ribs Historian: patient, family, EMS Review of Systems Constitutional: reports: weakness Eyes: reports: no symptoms ENT: reports: no symptoms Cardiovascular: reports: no symptoms Respiratory: reports: as stated in HPI Gastrointestinal: reports: no symptoms Genitourinary - Male: reports: no symptoms Musculoskeletal: reports: myalgias Integumentary: reports: as stated in HPI Neurologic: reports: no symptoms Psychiatric: reports: no symptoms Endocrine: no symptoms Hematologic / Lymphatic: no symptoms Allergic / Immunologic: no symptoms Past Medical History Past Medical History: #1 acid reflux #2 allergy to cats #3 allergy to dogs #3 allergy to molds #4 dust allergy #5 exercise-induced asthma #6 hydrocele the right testicle #8 male infertility #9 Diffuse large B-cell lymphoma Seen by Dr. Skip Butterfield at [facility] in [place] Rituxan + CHOP Ibrutinib, Revlimid, Pembrolizumab Oncologist at [facility] as well as [facility] Past Surgical History: #1 FNA right inguinal lymph node #2 excision of right inguinal lymph node #3 right inguinal hernia mesh repair #4 hepatic biopsy Family History Cancer Heart disease #1 allergic rhinitis #2 congestive heart failure #3 CVA #4 lymphoma Social History Social drinker Denies history of drug use/abuse Mental status: Tobacco: Never smoker Occupation: Employed Hx Tobacco Use In Past Year?: No Smoking Status: Never Smoker Marital status: Occupational Status: employed Immunizations History of Influenza Vaccine: No History of Tetanus Vaccine?: Unknown History of Pneumococcal: Unknown History of Hepatitis B Vaccine: Unknown History of MDRO History of MDRO: No Allergies Coded Allergies: Prochlorperazine (Verified Allergy, Severe, change in mental status, ) Erythromycin (Verified Allergy, Intermediate, GI SYMPTOMS, 12/15/16) Current Medications Reported Home Medications Medications Dose Route/Sig Max Daily Dose Days Date Category Dose Instructions [coenzyme b-complex] 1 Cap PO QAM 12/15/16 Reported [tribulus complex] 2 Cap PO QAM 12/15/16 Reported [renatrophin pmg] 2 Cap PO QAM 12/15/16 Reported [adek-pro k-102] 2 Cap PO QAM 12/15/16 Reported Liver & Kidney Cleanser (Cranberry-Milk Thistle) 1 Cap Cap 1 Cap PO AMHS 12/15/16 Reported liver kidney detoxifier and rejuvinator [coloctrum-ld] 2 Cap PO AMHS 12/15/16 Reported [lipotropix] 2 Cm PO QAM 12/15/16 Reported [reacted zinc] 2 Cap PO QAM 12/15/16 Reported [mitocore] 2 Cap PO AMHS 12/15/16 Reported Diflucan (Fluconazole) 100 Mg Tab 200 Mg PO DAILY 14 12/15/16 Reported Amoxicillin/Clavulanate P (Amoxicillin & Pot Clavulanate) 1 Tab Tab 1 Tab PO Q12 14 12/15/16 Reported Roxicodone Ir (Oxycodone HCl) 5 Mg Tab 10 Mg PO Q8 PRN 12/15/16 Reported Dolophine (Methadone HCl) 10 Mg Tab 10 Mg PO Q8 12/15/16 Reported Neurontin (Gabapentin) 600 Mg Tab 600 Mg PO Q8 12/15/16 Reported Ativan (Lorazepam) 1 Mg Tab 1 Mg PO HS 12/15/16 Reported Dexilant (Dexlansoprazole) 30 Mg Cap 30 Mg PO HS PRN 12/15/16 Reported Bisacodyl 5 Mg Tab 2 Tab PO HS PRN 12/15/16 Reported Bisacodyl 5 Mg Tab 1 Tab PO QAM PRN 12/15/16 Reported Senna-Lax (Sennosides) 8.6 Mg Tab 2 Tabs PO AMHS 12/15/16 Reported Valtrex (Valacyclovir Hcl) 500 Mg Tab 500 Mg PO QAM 12/15/16 Reported Docusate Sodium 100 Mg Cap 200 Mg PO HS 12/15/16 Reported Docusate Sodium 100 Mg Cap 100 Mg PO QAM 12/15/16 Reported Lexapro (Escitalopram Oxalate) 20 Mg Tab 20 Mg PO QAM 12/15/16 Reported Dexilant (Dexlansoprazole) 60 Mg Cap 60 Mg PO QAM 01/27/16 Reported Physical Physical Exam Vital Signs: Date Time Temp Pulse Resp B/P (MAP) Pulse Ox O2 Delivery O2 Flow Rate FiO2 12/15/16 11:26 37.1 81 18 115/69 (84) 98 Room Air 12/15/16 08:00 97 Room Air 12/15/16 07:33 37.0 88 16 105/63 (77) 100 Room Air 12/15/16 05:30 97 Room Air 12/15/16 05:30 37.2 89 16 131/61 (84) 97 Room Air 12/15/16 04:45 Room Air 12/15/16 03:11 37.2 12/15/16 02:56 89 131/61 97 12/15/16 02:00 95 16 122/68 99 Room Air 12/15/16 00:10 38.8 100 16 121/73 100 Room Air General Appearance: WELL-APPEARING, NO APPARENT DISTRESS Head: NORMOCEPHALIC, other (healing wound from previous B-cell lymphoma left anterior temporal region) Eyes: PERRLA, NO DISCHARGE, EOMI, SCLERAE NORMAL ENT: NORMAL EAR EXAM, NORMAL NASAL EXAM, NORMAL MOUTH EXAM, NORMAL THROAT EXAM Neck: NORMAL RANGE OF MOTION, NO TENDERNESS, TRACHEA MIDLINE Respiratory: other (clear to auscultation but decreased breath sounds in the left lower lobe. Port-A-Cath placement anterior right hemithorax no signs of tissue breakdown or erythema) Cardiovasular: REGULAR RATE/RHYTHM, NORMAL S1S2, NO M/G/R, NO MURMUR, NO GALLOP Abdomen: NON TENDER, NORMAL BOWEL SOUNDS, other (mild tenderness to deep palpation in the left upper quadrant region next to the ribs) Genitourinary - Male: EXTERNAL GENITALIA NORMAL Back: other (normal back other than the left left lateral thoracic region showing subcutaneous nodules) Upper Extremities: NO EDEMA, NO DEFORMITY, NORMAL ROM Lower Extremities: NO EDEMA, NO DEFORMITY, NORMAL ROM Pulses: carotid (R) (2+), carotid (L) (2+), posterior tibial (R), posterior tibial (L) Neuro: ALERT, ORIENTED x 3, NORMAL MOTOR EXAM, NORMAL SENSATION Reflexes: biceps (R) (2+), bicpes (L) (2+), achilles (R) (1+), achilles (L) (1+ ) Babinski Testing: right (downgoing), left (downgoing) Psychiatric: NORMAL AFFECT, NO SUICIDAL IDEATION Diagnostics Labs Results Past 24 Hours Test 12/15/16 00:37 12/15/16 00:40 12/15/16 00:50 12/15/16 01:20 Range/Units Bedside Lactic Acid Venous 1.54 0.90-1.70 mmol/L White Blood Count 1.13 4.8-10.8 K/uL Red Blood Count 2.64 4.7-6.1 M/uL Hemoglobin 7.0 14.0-18.0 g/dL Hematocrit 21.2 42-52 % Mean Corpuscular Volume 80.3 80-100 fL Mean Corpuscular Hemoglobin 26.5 25-34 pg Mean Corpuscular Hemoglobin Concent 33.0 32-36 g/dl Platelet Count 223 130-400 K/uL Mean Platelet Volume 8.1 7.4-10.4 fL RDW Standard Deviation 49.3 36.4-46.3 fL RDW Coefficient of Variation 17.1 11.5-14.5 % Neutrophils % (Manual) 0.0 % Lymphocytes % (Manual) 40.6 % Monocytes % (Manual) 39.6 % Eosinophils % (Manual) 13.9 % Basophils % (Manual) 5.9 0-2 % Neutrophils # (Manual) 0.00 1.4-6.5 K/uL Total Absolute Neutrophils 0.00 1.4-6.5 K/uL Lymphocytes # (Manual) 0.46 1.2-3.4 K/uL Total Absolute Lymphocytes 0.46 1.2-3.4 K/uL Monocytes # (Manual) 0.45 0.11-0.59 K/uL Eosinophils # (Manual) 0.16 0-0.5 K/uL Basophils # (Manual) 0.07 0-0.2 K/uL Anisocytosis PRESENT Prothrombin Time 10.7 9.0-12.0 SECONDS Prothromb Time International Ratio 1.0 0.9-1.1 Activated Partial Thromboplast Time 50.5 21.0-31.0 SECONDS Partial Thromboplastin Ratio 1.9 Sodium Level 134 136-145 mmol/L Potassium Level 3.9 3.5-5.1 mmol/L Chloride Level 99 98-107 mmol/L Carbon Dioxide Level 26 21-32 mmol/L Anion Gap 9.0 3-11 mmol/L Blood Urea Nitrogen 29 7-18 mg/dl Creatinine 2.00 0.60-1.40 mg/dl Est Creatinine Clear Calc Drug Dose 64.5 ml/min Estimated GFR () 49.4 Estimated GFR (Non- 42.6 BUN/Creatinine Ratio 14.5 10-20 Random Glucose 117 70-99 mg/dl Calcium Level 8.4 8.5-10.1 mg/dl Total Bilirubin 0.5 0.2-1 mg/dl Aspartate Amino Transf (AST/SGOT) 22 15-37 U/L Alanine Aminotransferase (ALT/SGPT) 19 12-78 U/L Alkaline Phosphatase 99 45-117 U/L Total Protein 5.9 6.4-8.2 gm/dl Albumin 2.8 3.4-5.0 gm/dl Globulin 3.1 2.5-4.0 gm/dl Albumin/Globulin Ratio 0.9 0.9-2 Influenza Type A Antigen Neg for Influ A NEG Influenza Type B Antigen Neg for Influ B NEG Urine Color YELLOW Urine Appearance CLEAR CLEAR Urine pH 5.5 4.5-7.5 Urine Specific [place] 1.014 1.000-1.030 Urine Protein NEG NEG Urine Glucose (UA) NEG NEG Urine Ketones NEG NEG Urine Occult Blood NEG NEG Urine Nitrite NEG NEG Urine Bilirubin NEG NEG Urine Urobilinogen NEG NEG Urine Leukocyte Esterase NEG NEG Urine WBC (Auto) 1-5 0-5 /hpf Urine RBC (Auto) 0-4 0-4 /hpf Urine Hyaline Casts (Auto) 0 0-5 /lpf Urine Epithelial Cells (Auto) 0-5 0-5 /lpf Urine Bacteria (Auto) NEG NEG Test 12/15/16 05:46 12/15/16 13:24 Range/Units White Blood Count 0.74 4.8-10.8 K/uL Red Blood Count 2.46 4.7-6.1 M/uL Hemoglobin 6.5 7.1 14.0-18.0 g/dL Hematocrit 19.7 22.3 42-52 % Mean Corpuscular Volume 80.1 80-100 fL Mean Corpuscular Hemoglobin 26.4 25-34 pg Mean Corpuscular Hemoglobin Concent 33.0 32-36 g/dl Platelet Count 181 130-400 K/uL Mean Platelet Volume 7.5 7.4-10.4 fL RDW Standard Deviation 49.6 36.4-46.3 fL RDW Coefficient of Variation 17.1 11.5-14.5 % Neutrophils % (Manual) 0.0 % Lymphocytes % (Manual) 40.8 % Monocytes % (Manual) 36.6 % Eosinophils % (Manual) 19.4 % Basophils % (Manual) 3.2 0-2 % Neutrophils # (Manual) 0.00 1.4-6.5 K/uL Total Absolute Neutrophils 0.00 1.4-6.5 K/uL Lymphocytes # (Manual) 0.30 1.2-3.4 K/uL Total Absolute Lymphocytes 0.30 1.2-3.4 K/uL Monocytes # (Manual) 0.27 0.11-0.59 K/uL Eosinophils # (Manual) 0.14 0-0.5 K/uL Basophils # (Manual) 0.02 0-0.2 K/uL Large Platelets 1+ Activated Partial Thromboplast Time 41.1 21.0-31.0 SECONDS Partial Thromboplastin Ratio 1.6 Sodium Level 138 136-145 mmol/L Potassium Level 3.7 3.5-5.1 mmol/L Chloride Level 104 98-107 mmol/L Carbon Dioxide Level 27 21-32 mmol/L Anion Gap 7.0 3-11 mmol/L Blood Urea Nitrogen 28 7-18 mg/dl Creatinine 1.70 0.60-1.40 mg/dl Est Creatinine Clear Calc Drug Dose 69.8 ml/min Estimated GFR () 60.1 Estimated GFR (Non- 51.8 BUN/Creatinine Ratio 16.3 10-20 Random Glucose 96 70-99 mg/dl Calcium Level 8.0 8.5-10.1 mg/dl Total Bilirubin 0.4 0.2-1 mg/dl Aspartate Amino Transf (AST/SGOT) 19 15-37 U/L Alanine Aminotransferase (ALT/SGPT) 17 12-78 U/L Alkaline Phosphatase 84 45-117 U/L Total Protein 5.2 6.4-8.2 gm/dl Albumin 2.4 3.4-5.0 gm/dl Globulin 2.8 2.5-4.0 gm/dl Albumin/Globulin Ratio 0.9 0.9-2 Microbiology Results 12/15/16 Blood Culture, Received Pending 12/15/16 Blood Culture, Received Pending 12/15/16 MRSA DNA Surveillance Screen - Final, Complete Specimen Negative for MRSA by DNA Probe 12/15/16 Group A Streptococcus Screen - Final, Resulted SPECIMEN NEGATIVE FOR GROUP A BETA ST... 12/15/16 Group A Streptococcus Screen (JAMES), Resulted Pending Diagnostic Radiology Chest x-ray: 12/15/2016: Port in place, left midlung zone pleural opacifications VQ scan a 12/15/2016: Results pending CT thorax 12/15/2016: Multiple left upper lobe and left lower lobe nodules, some pleural-based Complete collapse of the LB 10 LB 9 regions Small pleural effusion associated with a left lower lobe infiltrates Appears to be bony ingrowth of a mass left sided inferior ribs Impression Assessment and Plan 31-year-old gentleman with progressive B-cell lymphoma: #1 pulmonary nodules/masses: Patient has progressive nodules/masses in his left hemithorax actually extending/going through the ribs at this time. This has been recently biopsied in last 4 weeks and notable for B-cell lymphoma. There is no clear indication for bronchoscopic biopsy at this time. Also the superior third distal airways no signs of central airway collapse no acute rigid bronchoscopic intervention is necessary. I did tell the son and father I' m available if anything changes acutely within his thoracic cavity. #2 neutropenic fever: Patient is currently on broad-spectrum antibiotics no indication for acute bronchoscopic diagnostic procedures. The patient continues to have neutropenic fevers would suggest adding X like ovarian the next 2-3 days to broaden the coverage. After that within a 47 to day window possibly antifungal therapy would be appropriate. Follow-up: There is no current need for follow-up please reconsult if necessary.
--- NOTE | 2016-12-15 17:08 | Pharmacy Progress Note ---
Pharmacy Antibiotic Consult Date of Service: Dec 15, 2016. Pharmacy Dosing Scope Pharmacy is consulted to initiate vancomycin, Levaquin, and Zosyn IV dosing therapy, order appropriate labs and adjust drug dose/frequency. Subjective The patient is a 31 year old male admitted on Dec 15, 2016 at 02:47 w/ neutropenic fevers, recurrent lymphoma. Objective Height (Feet): 6 Height (Inches): 1.00 Weight (Kilograms): 92.900 Lab Results (24hrs): Test 12/15/16 00:37 12/15/16 00:40 12/15/16 00:50 12/15/16 01:20 Bedside Lactic Acid Venous 1.54 mmol/L (0.90-1.70) White Blood Count 1.13 K/uL (4.8-10.8) Red Blood Count 2.64 M/uL (4.7-6.1) Hemoglobin 7.0 g/dL (14.0-18.0) Hematocrit 21.2 % (42-52) Mean Corpuscular Volume 80.3 fL (80-100) Mean Corpuscular Hemoglobin 26.5 pg (25-34) Mean Corpuscular Hemoglobin Concent 33.0 g/dl (32-36) Platelet Count 223 K/uL (130-400) Mean Platelet Volume 8.1 fL (7.4-10.4) RDW Standard Deviation 49.3 fL (36.4-46.3) RDW Coefficient of Variation 17.1 % (11.5-14.5) Neutrophils % (Manual) 0.0 % Lymphocytes % (Manual) 40.6 % Monocytes % (Manual) 39.6 % Eosinophils % (Manual) 13.9 % Basophils % (Manual) 5.9 % (0-2) Neutrophils # (Manual) 0.00 K/uL (1.4-6.5) Total Absolute Neutrophils 0.00 K/uL (1.4-6.5) Lymphocytes # (Manual) 0.46 K/uL (1.2-3.4) Total Absolute Lymphocytes 0.46 K/uL (1.2-3.4) Monocytes # (Manual) 0.45 K/uL (0.11-0.59) Eosinophils # (Manual) 0.16 K/uL (0-0.5) Basophils # (Manual) 0.07 K/uL (0-0.2) Anisocytosis PRESENT Prothrombin Time 10.7 SECONDS (9.0-12.0) Prothromb Time International Ratio 1.0 (0.9-1.1) Activated Partial Thromboplast Time 50.5 SECONDS (21.0-31.0) Partial Thromboplastin Ratio 1.9 Sodium Level 134 mmol/L (136-145) Potassium Level 3.9 mmol/L (3.5-5.1) Chloride Level 99 mmol/L (98-107) Carbon Dioxide Level 26 mmol/L (21-32) Anion Gap 9.0 mmol/L (3-11) Blood Urea Nitrogen 29 mg/dl (7-18) Creatinine 2.00 mg/dl (0.60-1.40) Est Creatinine Clear Calc Drug Dose 64.5 ml/min Estimated GFR () 49.4 Estimated GFR (Non- 42.6 BUN/Creatinine Ratio 14.5 (10-20) Random Glucose 117 mg/dl (70-99) Calcium Level 8.4 mg/dl (8.5-10.1) Total Bilirubin 0.5 mg/dl (0.2-1) Aspartate Amino Transf (AST/SGOT) 22 U/L (15-37) Alanine Aminotransferase (ALT/SGPT) 19 U/L (12-78) Alkaline Phosphatase 99 U/L (45-117) Total Protein 5.9 gm/dl (6.4-8.2) Albumin 2.8 gm/dl (3.4-5.0) Globulin 3.1 gm/dl (2.5-4.0) Albumin/Globulin Ratio 0.9 (0.9-2) Influenza Type A Antigen Neg for Influ A (NEG) Influenza Type B Antigen Neg for Influ B (NEG) Urine Color YELLOW Urine Appearance CLEAR (CLEAR) Urine pH 5.5 (4.5-7.5) Urine Specific [place] 1.014 (1.000-1.030) Urine Protein NEG (NEG) Urine Glucose (UA) NEG (NEG) Urine Ketones NEG (NEG) Urine Occult Blood NEG (NEG) Urine Nitrite NEG (NEG) Urine Bilirubin NEG (NEG) Urine Urobilinogen NEG (NEG) Urine Leukocyte Esterase NEG (NEG) Urine WBC (Auto) 1-5 /hpf (0-5) Urine RBC (Auto) 0-4 /hpf (0-4) Urine Hyaline Casts (Auto) 0 /lpf (0-5) Urine Epithelial Cells (Auto) 0-5 /lpf (0-5) Urine Bacteria (Auto) NEG (NEG) Test 12/15/16 05:46 12/15/16 13:24 12/15/16 15:20 White Blood Count 0.74 K/uL (4.8-10.8) Red Blood Count 2.46 M/uL (4.7-6.1) Hemoglobin 6.5 g/dL (14.0-18.0) 7.1 g/dL (14.0-18.0) Hematocrit 19.7 % (42-52) 22.3 % (42-52) Mean Corpuscular Volume 80.1 fL (80-100) Mean Corpuscular Hemoglobin 26.4 pg (25-34) Mean Corpuscular Hemoglobin Concent 33.0 g/dl (32-36) Platelet Count 181 K/uL (130-400) Mean Platelet Volume 7.5 fL (7.4-10.4) RDW Standard Deviation 49.6 fL (36.4-46.3) RDW Coefficient of Variation 17.1 % (11.5-14.5) Neutrophils % (Manual) 0.0 % Lymphocytes % (Manual) 40.8 % Monocytes % (Manual) 36.6 % Eosinophils % (Manual) 19.4 % Basophils % (Manual) 3.2 % (0-2) Neutrophils # (Manual) 0.00 K/uL (1.4-6.5) Total Absolute Neutrophils 0.00 K/uL (1.4-6.5) Lymphocytes # (Manual) 0.30 K/uL (1.2-3.4) Total Absolute Lymphocytes 0.30 K/uL (1.2-3.4) Monocytes # (Manual) 0.27 K/uL (0.11-0.59) Eosinophils # (Manual) 0.14 K/uL (0-0.5) Basophils # (Manual) 0.02 K/uL (0-0.2) Large Platelets 1+ Activated Partial Thromboplast Time 41.1 SECONDS (21.0-31.0) Partial Thromboplastin Ratio 1.6 Sodium Level 138 mmol/L (136-145) Potassium Level 3.7 mmol/L (3.5-5.1) Chloride Level 104 mmol/L (98-107) Carbon Dioxide Level 27 mmol/L (21-32) Anion Gap 7.0 mmol/L (3-11) Blood Urea Nitrogen 28 mg/dl (7-18) Creatinine 1.70 mg/dl (0.60-1.40) Est Creatinine Clear Calc Drug Dose 69.8 ml/min Estimated GFR () 60.1 Estimated GFR (Non- 51.8 BUN/Creatinine Ratio 16.3 (10-20) Random Glucose 96 mg/dl (70-99) Calcium Level 8.0 mg/dl (8.5-10.1) Total Bilirubin 0.4 mg/dl (0.2-1) Aspartate Amino Transf (AST/SGOT) 19 U/L (15-37) Alanine Aminotransferase (ALT/SGPT) 17 U/L (12-78) Alkaline Phosphatase 84 U/L (45-117) Total Protein 5.2 gm/dl (6.4-8.2) Albumin 2.4 gm/dl (3.4-5.0) Globulin 2.8 gm/dl (2.5-4.0) Albumin/Globulin Ratio 0.9 (0.9-2) Micro Results: Blood cx are pending. Recent Pertinent Medications Primaxin 500mg IV x 1 dose in ED Assessment & Plan Assessment 31 year old male ordered empiric antibiotic therapy for possible sepsis/pnx. * presented with neutropenic fevers * pt is currently being treated for lymphoma. Plan Vancomycin IV * Loading dose: 1500 mg (~25mg/kg) * Maintenance dose: 1250 mg IV (14 mg/kg) every 12 hours * Goal trough level: 15 to 20 mcg/mL * Trough level ordered for 12/17 prior to 0600 dose. Also on Zosyn 3.375gm IV q 8h ext. infusion and Levaquin 750mg IV q 24h. Pharmacy will continue to follow and will adjust dose/frequency as necessary. Thank you
[2016-12-15] MEDS: VANCOMYCIN INJ 1,250 MG in SODIUM CHLORIDE 0.9% 250ML 250 ML IV SCH (17:46)
[2016-12-15 19:25] LABS: HEMATOCRIT 21.9 % (42-52)
[2016-12-15] MEDS: LORAZEPAM 1 MG TAB PO SCH (20:06)
[2016-12-15] MEDS: BISACODYL 5 MG TABEC PO PRN (20:06)
[2016-12-16] VITALS (7 sets, daily range): BP systolic 99–109; BP diastolic 61–66; PULSE 70–95; TEMP 36.7–37; O2SAT 96–100
[2016-12-16] MEDS: PIPERACILL/TAZOBAC IV 4.5 GM in DEXTROSE 5% 100ML IV SCH ×3 (00:10→16:30)
[2016-12-16] MEDS: METHADONE HCL 10 MG TAB PO SCH ×3 (03:16→18:11)
[2016-12-16] MEDS: GABAPENTIN 600 MG TAB PO SCH ×3 (03:16→18:11)
[2016-12-16] MEDS: LEVOFLOXACIN / D5W 750 MG in PREMIXED IN D5W 150 ML IV SCH (05:03)
[2016-12-16] MEDS: VANCOMYCIN INJ 1,250 MG in SODIUM CHLORIDE 0.9% 250ML 250 ML IV SCH ×2 (05:07→18:11)
[2016-12-16] MEDS: SENNA 8.6 MG TAB PO SCH ×2 (07:31→20:54)
[2016-12-16] MEDS: ESCITALOPRAM OXALATE 20 MG TAB PO SCH (07:31)
[2016-12-16] MEDS: DOCUSATE SODIUM 100 MG CAP PO SCH ×2 (07:31→20:54)
[2016-12-16] MEDS: DEXLANSOPRAZOLE PO SCH (07:32)
[2016-12-16 08:44] LABS: MEAN CORPUSCULAR HGB CONC 32.6 g/dl (32-36); MEAN PLATELET VOLUME 7.7 fL (7.4-10.4); PLATELET COUNT 196 K/uL (130-400)
[2016-12-16 09:13] LABS: BUN/CREATININE RATIO 11.3 (10-20); CALCIUM 9.1 mg/dl (8.5-10.1); CREATININE 1.9 mg/dl (0.60-1.40); POTASSIUM 4.3 mmol/L (3.5-5.1)
[2016-12-16 09:14] LABS: ALB/GLOB RATIO 0.8 (0.9-2)
[2016-12-16 09:16] LABS: BASO ABS # 0.08 K/uL (0-0.2); BASOPHIL % 7.1 % (0-2); COMPLETE YES; HEMATOCRIT 21.5 % (42-52); LYMPHOCYTE % 26.5 %; MEAN CELL VOLUME 80.5 fL (80-100); MEAN CORPUSCULAR HEMOGLOBIN 26.2 pg (25-34); META ABS # 0.01 K/uL (0-0); METAMYELOCYTE % 0.9 %; NEUTROPHILS % 1.8 %; RED BLOOD COUNT 2.67 M/uL (4.7-6.1); WHITE BLOOD COUNT 1.15 K/uL (4.8-10.8)
[2016-12-16] MEDS ORDERED: FILGRASTIM 480 MCG/1.6 ML VIAL SC ONE (11:45)
--- NOTE | 2016-12-16 12:34 | HEME/ONC PROGRESS NOTE ---
DATE: 12/16/2016 DIAGNOSES: 1. Neutropenic fever. 2. Refractory large B cell lymphoma. SUBJECTIVE: Malik is a very pleasant, but unfortunate 31-year-old gentleman, under Dr. Carbone's care for refractory non-Hodgkin's lymphoma. He had developed with a low grade fever, which may be attributable to tumor burden. Cultures have been negative thus far. His counts have been slow to recover and we will provide Neupogen subcutaneously today. Clinically, he feels well and probably could be discharged home. He offers no particular complaints today and has been afebrile in the past 24 hours. PHYSICAL EXAMINATION: GENERAL: He is in no acute distress. VITAL SIGNS: Temperature 37, pulse 95, respiratory rate 18, and blood pressure 99/63. SKIN: Without rash or lesion. HEENT: Oral mucosa without erythema or ulceration. NECK: Supple. HEART: Regular rate and rhythm. LUNGS: Clear to auscultation. ABDOMEN: Soft, nontender, and nondistended. EXTREMITIES: No clubbing, cyanosis or edema. NEUROLOGIC: Grossly intact. LABORATORY DATA: WBC count 1150, hemoglobin 7, platelet count 196,000, and absolute neutrophil count 20. Sodium 139, potassium 4.3, chloride 105, carbon dioxide 27, creatinine 1.90, and BUN 22. IMPRESSION: 1. Neutropenic fever. 2. Refractory non-Hodgkin's lymphoma. 3. Acute renal injury. 4. Microcytic anemia. PLAN: Malik is a pleasant, but unfortunate 31-year-old gentleman who was admitted yesterday with neutropenic fever. Thus far, cultures have been negative; however, he continues to receive broad spectrum antibiotics. Conceivably, this fever may be secondary to progressing tumor. Because his white count has been slow to recover, we will order Neupogen 480 mcg subQ today. From a hematologic standpoint as long as cultures are negative and he is hemodynamically stable, he could be discharged home and followed closely in the outpatient arena. I have nothing further to add at this time. Thank you very much for allowing us to participate in the care of this very pleasant gentleman.
--- NOTE | 2016-12-16 16:17 | Progress Note ---
Subjective Date of Service: Dec 16, 2016. Problem List Medical Problems: (1) Acute kidney injury Status: Acute Objective Vital Signs Date Time Temp Pulse Resp B/P (MAP) Pulse Ox O2 Delivery O2 Flow Rate FiO2 12/16/16 12:00 Room Air 12/16/16 11:53 37.0 95 18 99/63 (75) 98 Room Air 12/16/16 08:00 Room Air 12/16/16 08:00 36.8 79 18 100/62 (75) 96 Room Air 12/16/16 03:47 36.9 84 16 99/63 (75) 97 Room Air 12/16/16 00:15 36.9 84 16 101/61 (74) 98 Room Air 12/16/16 00:00 Room Air 12/15/16 20:07 37.1 79 16 111/72 (85) 98 Room Air 12/15/16 20:00 Room Air 12/15/16 16:54 96 Room Air 12/15/16 16:15 36.7 76 20 110/65 (80) 96 Laboratory Results Last 24 Hours Test 12/15/16 19:13 12/16/16 08:27 Hemoglobin 7.2 g/dL 7.0 g/dL Hematocrit 21.9 % 21.5 % White Blood Count 1.15 K/uL Red Blood Count 2.67 M/uL Mean Corpuscular Volume 80.5 fL Mean Corpuscular Hemoglobin 26.2 pg Mean Corpuscular Hemoglobin Concent 32.6 g/dl Platelet Count 196 K/uL Mean Platelet Volume 7.7 fL RDW Standard Deviation 50.7 fL RDW Coefficient of Variation 17.5 % Neutrophils % (Manual) 1.8 % Lymphocytes % (Manual) 26.5 % Monocytes % (Manual) 40.7 % Eosinophils % (Manual) 23.0 % Basophils % (Manual) 7.1 % Metamyelocytes % 0.9 % Neutrophils # (Manual) 0.02 K/uL Total Absolute Neutrophils 0.02 K/uL Lymphocytes # (Manual) 0.30 K/uL Total Absolute Lymphocytes 0.30 K/uL Monocytes # (Manual) 0.47 K/uL Eosinophils # (Manual) 0.26 K/uL Basophils # (Manual) 0.08 K/uL Metamyelocytes # 0.01 K/uL Red Blood Cell Morphology Unremarkable Sodium Level 139 mmol/L Potassium Level 4.3 mmol/L Chloride Level 105 mmol/L Carbon Dioxide Level 27 mmol/L Anion Gap 7.0 mmol/L Blood Urea Nitrogen 22 mg/dl Creatinine 1.90 mg/dl Est Creatinine Clear Calc Drug Dose 62.5 ml/min Estimated GFR () 52.5 Estimated GFR (Non- 45.3 BUN/Creatinine Ratio 11.3 Random Glucose 76 mg/dl Calcium Level 9.1 mg/dl Total Bilirubin 0.4 mg/dl Aspartate Amino Transf (AST/SGOT) 16 U/L Alanine Aminotransferase (ALT/SGPT) 13 U/L Alkaline Phosphatase 81 U/L Total Protein 5.5 gm/dl Albumin 2.4 gm/dl Globulin 3.1 gm/dl Albumin/Globulin Ratio 0.8 Assessment and Plan 31 year old male with large B cell lymphoma presents with neutropenic fever Neutropenic fever - Treat empirically with vancomycin, Zosyn and Levaquin - Neulasta given 12/15, Neupogen x 1given on 12/16, mild improvement, no more fevers - BC NGTD, UA neg - Consult pulmonology - no acute indication for bronch as lesions are distal - Pt has f/u appt at [facility] on 12/18 for evaluation and tx B Cell Lymphoma - Consult heme/onc, no further recs at this time - continue O/P medications GERD - switch dexlansoprazole to pantoprazole as per formulary VTE Prophylaxis - PTT within therapeutic range, likely hypercoagulable however from lymphoma - Hold off chemical prophylaxis for now pending above studies - SCDs + TEDs Code - Full code for now but will need to be fully discussed in the morning
[2016-12-16] MEDS: LORAZEPAM 1 MG TAB PO SCH (20:51)
[2016-12-16] MEDS: BISACODYL 5 MG TABEC PO PRN (20:57)
[2016-12-17] MEDS: PIPERACILL/TAZOBAC IV 4.5 GM in DEXTROSE 5% 100ML IV SCH ×2 (00:16→08:08)
[2016-12-17] MEDS: METHADONE HCL 10 MG TAB PO SCH ×2 (02:18→09:46)
[2016-12-17] MEDS: GABAPENTIN 600 MG TAB PO SCH ×2 (02:19→09:47)
[2016-12-17 04:09] VITALS: BP 106/67; PULSE 92; TEMP 37.4; O2SAT 95
[2016-12-17] MEDS: LEVOFLOXACIN / D5W 750 MG in PREMIXED IN D5W 150 ML IV SCH (04:38)
[2016-12-17] MEDS ORDERED: VANCOMYCIN TROUGH SCH (05:30)
[2016-12-17] MEDS: VANCOMYCIN INJ 1,250 MG in SODIUM CHLORIDE 0.9% 250ML 250 ML IV SCH (06:05)
[2016-12-17 06:18] LABS: BUN/CREATININE RATIO 8.7 (10-20); CALCIUM 9.6 mg/dl (8.5-10.1); CREATININE 2.6 mg/dl (0.60-1.40); POTASSIUM 4.3 mmol/L (3.5-5.1)
[2016-12-17 06:20] LABS: ALB/GLOB RATIO 0.8 (0.9-2)
[2016-12-17 06:23] LABS: HEMATOCRIT 23.8 % (42-52); MEAN CORPUSCULAR HEMOGLOBIN 25.9 pg (25-34); MEAN CORPUSCULAR HGB CONC 31.9 g/dl (32-36); MEAN PLATELET VOLUME 7.8 fL (7.4-10.4); PLATELET COUNT 225 K/uL (130-400); RED BLOOD COUNT 2.94 M/uL (4.7-6.1); WHITE BLOOD COUNT 1.83 K/uL (4.8-10.8)
[2016-12-17 06:25] LABS: ANISOCYTOSIS PRESENT; LARGE PLATELETS 1+
[2016-12-17 06:53] LABS: BASO ABS # 0.06 K/uL (0-0.2); BASOPHIL % 3.5 % (0-2); COMPLETE YES; EOSINOPHIL % 23.5 %; LYMPH ABS # 0.59 K/uL (1.2-3.4); LYMPHOCYTE % 32.2 %; NEUTROPHILS % 5.2 %
[2016-12-17] MEDS: ESCITALOPRAM OXALATE 20 MG TAB PO SCH (08:09)
[2016-12-17] MEDS: SENNA 8.6 MG TAB PO SCH (08:09)
[2016-12-17] MEDS: DOCUSATE SODIUM 100 MG CAP PO SCH (08:09)
[2016-12-17] MEDS: DEXLANSOPRAZOLE PO SCH (08:10)
[2016-12-17 08:15] VITALS: BP 112/71; PULSE 87; TEMP 37; O2SAT 94
[2016-12-17] MEDS ORDERED: SODIUM CHLORIDE 0.9% 1000ML 1,000 ML IV ONE (08:15)
[2016-12-17] MEDS ORDERED: CEFP200T14 PO (09:23)
--- NOTE | 2016-12-17 09:35 | Discharge Instructions ---
Discharge Instructions Date of Service Dec 17, 2016. Admission Reason for Admission: Neutropenic Fever, Recurrent Lymphoma Discharge Discharge Diagnosis / Problem: neutropenic fever, B cell lymphoma Discharge Goals Goal(s): Decrease discomfort Activity Recommendations Activity Limitations: resume your previous activity Lifting Limitations: none . Instructions / Follow-Up Instructions / Follow-Up drink 8 cups of water every day. make sure your urine is light yellow, if it is dark then drink more, if it is white like water then drink a little less Current Hospital Diet Patient's current hospital diet: Regular Diet Discharge Diet Recommended Diet: Regular Diet Pending Studies Studies pending at discharge: no Medical Emergencies . Who to Call and When: Medical Emergencies: If at any time you feel your situation is an emergency, please call 911 immediately. . Non-Emergent Contact Non-Emergency issues call your: Oncologist Call Non-Emergent contact if: you have a fever, your pain is not controlled . . "Provider Documentation" section prepared by Lola Roblero. . VTE Core Measure Inpt VTE Proph given/why not?: Dakotah Butts, SCD's
[2016-12-17] MEDS ORDERED: SODIUM CHLORIDE 0.9% 1000ML 1,000 ML IV SCH (09:45)
[2016-12-17 11:03] VITALS: BP 112/71; PULSE 87; TEMP 37; O2SAT 94
[2016-12-17 11:32] LABS: BUN/CREATININE RATIO 8.3 (10-20); CALCIUM 8.6 mg/dl (8.5-10.1); CREATININE 2.5 mg/dl (0.60-1.40); POTASSIUM 4.1 mmol/L (3.5-5.1)
[2016-12-17 11:39] VITALS: BP 107/62; PULSE 85; TEMP 36.8; O2SAT 98
--- NOTE | 2016-12-17 11:41 | Discharge Summary ---
Discharge Summary Date of Service Dec 17, 2016. Discharge Summary Admission Date: Dec 15, 2016 at 02:47 Discharge Date: Dec 17, 2016 Discharge Disposition: Home Principal Diagnosis: Neutropenic fever Problems/Secondary Diagnoses: B cell lymphoma ROLLY / CKD CKD stage 3 Immunizations: Have You Had Influenza Vaccine: No History of Tetanus Vaccine?: Unknown History of Pneumococcal: Unknown History of Hepatitis B Vaccine: Unknown Medication Reconciliation New Medications: Cefpodoxime Proxetil (Cefpodoxime Proxetil) 200 Mg Tab 1 TAB PO BID for 7 Days, #14 TAB Continued Medications: Bisacodyl (Bisacodyl) 5 Mg Tab 1 TAB PO QAM PRN for Constipation Bisacodyl (Bisacodyl) 5 Mg Tab 2 TAB PO HS PRN for Constipation Cranberry-Milk Thistle (Liver & Kidney Cleanser) 1 Cap Cap 1 CAP PO AMHS liver kidney detoxifier and rejuvinator Dexlansoprazole (Dexilant) 60 Mg Cap 60 MG PO QAM Dexlansoprazole (Dexilant) 30 Mg Cap 30 MG PO HS PRN for gerd Docusate Sodium (Docusate Sodium) 100 Mg Cap 100 MG PO QAM Docusate Sodium (Docusate Sodium) 100 Mg Cap 200 MG PO HS Escitalopram Oxalate (Lexapro) 20 Mg Tab 20 MG PO QAM Fluconazole (Diflucan) 100 Mg Tab 200 MG PO DAILY for 14 Days Gabapentin (Neurontin) 600 Mg Tab 600 MG PO Q8, TAB Lorazepam (Ativan) 1 Mg Tab 1 MG PO HS Methadone Hcl (Dolophine) 10 Mg Tab 10 MG PO Q8, TAB Oxycodone Immediate Rel Tab (Roxicodone Ir) 5 Mg Tab 10 MG PO Q8 PRN for Pain, TAB Sennosides (Senna-Lax) 8.6 Mg Tab 2 TABS PO AMHS Valacyclovir Hcl (Valtrex) 500 Mg Tab 500 MG PO QAM, TAB [adek-pro k-102] () 2 CAP PO QAM [coenzyme b-complex] () 1 CAP PO QAM [coloctrum-ld] () 2 CAP PO AMHS [lipotropix] () 2 CM PO QAM [mitocore] () 2 CAP PO AMHS [reacted zinc] () 2 CAP PO QAM [renatrophin pmg] () 2 CAP PO QAM [tribulus complex] () 2 CAP PO QAM Discontinued Medications: Amoxicillin & Pot Clavulanate (Amoxicillin/Clavulanate P) 1 Tab Tab 1 TAB PO Q12 for 14 Days Discharge Exam Review of Systems: Constitutional: No fever, No chills, No sweats, No weight loss, No weakness , No fatigue, No problem reported Eyes: No worsening of vision, No eye pain, No redness, No discharge, No diplopia, No problem reported ENT: No hearing loss, No unusual epistaxis, No nasal symptoms, No sore throat, No tinnitus, No dental problems, No trouble swallowing, No problem reported Respiratory: No cough, No sputum, No wheezing, No shortness of breath, No dyspnea on exertion, No dyspnea at rest, No hemoptysis, No problem reported Cardiovascular: No chest pain, No orthopnea, No PND, No edema, No claudication, No palpitations, No problem reported Abdomen: No pain, No nausea, No vomiting, No diarrhea, No constipation, No GI bleeding, No problem reported Neurologic: No memory loss, No paralysis, No weakness, No numbness/tingling , No vertigo, No balance problems, No problem reported Psychiatric: No depression symptoms, No anhedonism, No anxiety, No insomnia , No substance abuse, No problem reported Endocrine: No fatigue, No excessive thirst, No excessive urination, No problem reported Integumentary: No rash, No itch, No new/changing skin lesions, No color change, No bleeding, No problem reported Physical Exam: General Appearance: WD/WN, no apparent distress Eyes: normal inspection, EOMI ENT: normal ENT inspection, hearing grossly normal Neck: supple Respiratory/Chest: chest non-tender, lungs clear, normal breath sounds, no respiratory distress, no accessory muscle use Cardiovascular: regular rate, rhythm, no edema, no gallop, no JVD Abdomen / GI: normal bowel sounds, non tender, soft Extremities: normal inspection Neurologic/Psychiatric: home visitor II-XII nml as tested, no motor/sensory deficits , alert, normal mood/affect, normal reflexes, oriented x 3 Skin: normal color, warm/dry Hospital Course 31 years old man with 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 Also failed rituximab, ibrutinib and Revlimid as well as the PD-L1 inhibitor pembrolizumab. presented with neutropenic fever and Hx of exposure to his 2 years old son with URTI was placed on vanco/zosyn/levofloxacin Neulasta given 12/15, Neupogen x 1given on 12/16, mild improvement, no more fevers BC NGTD, UA neg, strept screen is negative Consult pulmonology - no acute indication for bronch as lesions are distal Pt has f/u appt at [facility] on 12/18 for options and current trials his creatinine pumped today from 1.9 to 2.6 he received 2 liters boluses of NSS, creatinine seemed to be improving, it is 2.5 now and he was instructed to drink a lot of water, case D/W his PCP who recommended discharge in order for him not tomiss his important appointment in [facility] tomorrow He will have a foloow up renal function as an out patient with his PCP Total Time Spent: Greater than 30 minutes This includes examination of the patient, discharge planning, medication reconciliation, and communication with other providers. Discharge Instructions Please refer to the electronic Patient Visit Report (Discharge Instructions) for additional information.
[2016-12-18 13:00] LABS: LEGIONELLA ANTIGEN NOT DETECTED (NOT DETECTED)
[2017-01-15] MEDS ORDERED: dexamethasone PO (08:10)
== END 2016-12-17 13:00 | disposition home or self-care (01) | DRG 809 ==
LOC: C.EDB 00:09 → EDBEDREQSVC 02:43 → C.4E 02:47 → ENRESERV 02:51
PROVIDERS: ADMIT Hospitalist; ATTEND Internal Medicine
DX: D70.3 Neutropenia due to infection (principal); C83.32 Diffuse large B-cell lymphoma, intrathoracic lymph nodes; N17.9 Acute kidney failure, unspecified; Z94.84 Stem cells transplant status; R50.81 Fever presenting with conditions classified elsewhere; J02.9 Acute pharyngitis, unspecified; D50.9 Iron deficiency anemia, unspecified; D63.0 Anemia in neoplastic disease; D64.81 Anemia due to antineoplastic chemotherapy; T45.1X5A Adverse effect of antineoplastic and immunosuppressive drugs, initial encounter; R21 Rash and other nonspecific skin eruption; N18.3 Chronic kidney disease, stage 3 (moderate); M84.58XD Pathological fracture in neoplastic disease, other specified site, subsequent encounter for fracture with routine healing; J45.990 Exercise induced bronchospasm; K21.9 Gastro-esophageal reflux disease without esophagitis; Z80.7 Family history of other malignant neoplasms of lymphoid, hematopoietic and related tissues; Z79.2 Long term (current) use of antibiotics; Z79.891 Long term (current) use of opiate analgesic; Z79.899 Other long term (current) drug therapy

== ENCOUNTER → 2017-01-03 | Outpatient (CLI) | payer BC ==
[~2017-01-03] MED LIST changes: +ACETAMINOPHEN 325 MG TAB PO SCH; -AMOX1TAB43 PO; +ATV/1 PO; +BISA1TAB15 PO; -CETI10TA84 PO; +COENZYME B COMPLEX PO; +CRANCAP PO; +DEXL30CA5 PO; +DOCU100C31 PO; +ESCI1TAB10 PO; -FLUC100T4 PO; +GABA600T PO; -IBUP-1050 PO; +METH10TA2 PO; +MITOCORE PO; -OXYC-57 PO; +OXYC1TAB3 PO; +SENN-56 PO; +VALA500T39 PO; -ZNTT/150 PO; +[UNRECOGNIZED DRUG - OTHER] PO; +[UNRECOGNIZED DRUG - OTHER] PO; +[UNRECOGNIZED DRUG - OTHER] PO; +[UNRECOGNIZED DRUG - OTHER] PO; +[UNRECOGNIZED DRUG - OTHER] PO; +[UNRECOGNIZED DRUG - OTHER] PO; +dexamethasone PO
--- NOTE | 2017-01-03 20:29 | DIAGNOSTIC IMAGING REPORT ---
MRI OF THE BRAIN WITHOUT CONTRAST CLINICAL HISTORY: NON HODGKINS LYMPHOMA COMPARISON STUDY: None. FINDINGS: Sagittal T1, axial diffusion, proton density and T2 weighted axial, coronal FLAIR, and axial T1-weighted images were acquired. No intra or extra-axial mass lesions are visualized Axial diffusion-weighted images reveal no evidence of acute or subacute infarction. There is no evidence of ventricular dilatation. Proton density T2-weighted and FLAIR images reveal no significant intraparenchymal signal abnormalities. There are no abnormal flow voids. There is borderline diminished bone marrow signal intensity within the clivus and spine.. Given the patient's clinical history this may relate to treatment related marrow hyperstimulation. IMPRESSION: 1. Borderline diminished marrow signal within the clivus and upper cervical spine. Otherwise normal noncontrast MRI of the brain. Electronically signed by: Mikal Phan M.D. 01/03/2017 8:28 PM Dictated Date/Time: 01/03/2017 8:24 PM
== END | disposition home or self-care (01) ==
LOC: C.MRI 19:22
PROVIDERS: ATTEND Internal Medicine Hematology & Oncology
DX: C83.35 Diffuse large B-cell lymphoma, lymph nodes of inguinal region and lower limb (principal)

== ENCOUNTER → 2017-01-14 | Outpatient (CLI) | payer BC ==
[~2017-01-14] MED LIST changes: -ACETAMINOPHEN 325 MG TAB PO SCH
--- NOTE | 2017-01-14 16:49 | DIAGNOSTIC IMAGING REPORT ---
CHEST 2 VIEWS ROUTINE CLINICAL HISTORY: Left-sided rib pain COMPARISON STUDY: 12/15/2016 FINDINGS: The cardiac and mediastinal contours remain stable. There is a right-sided A-Port catheter, unchanged in position. There is no pneumothorax. There are multiple large left-sided pleural-based masses measuring up to 9 cm in diameter. There is secondary obstruction of the left 10th and 11th ribs.[ IMPRESSION: Persistent large left-sided pleural-based masses with underlying rib destruction. Electronically signed by: Mikal Phan M.D. 01/14/2017 4:48 PM Dictated Date/Time: 01/14/2017 4:46 PM
== END | disposition home or self-care (01) ==
LOC: C.RAD 16:15
PROVIDERS: ATTEND Internal Medicine Hematology & Oncology
DX: C83.35 Diffuse large B-cell lymphoma, lymph nodes of inguinal region and lower limb (principal); J94.8 Other specified pleural conditions; R07.82 Intercostal pain

== ENCOUNTER → 2017-02-21 | Outpatient (CLI) | payer BC ==
[~2017-02-21] MED LIST changes: +ACYC800T PO; +ALL300 PO; +CETI10CH PO; -COENZYME B COMPLEX PO; -CRANCAP PO; +FLUC200T4 PO; +GABA800T PO; +LEVO1TAB33 PO; +MAGIC MOUTH WASH PO; -MITOCORE PO; +MRN/25 PO; +SEVE1TAB PO; +SULF800T23 PO; +VENE100T PO; +[UNRECOGNIZED DRUG - CODE] PO; -[UNRECOGNIZED DRUG - OTHER] PO; -[UNRECOGNIZED DRUG - OTHER] PO; -[UNRECOGNIZED DRUG - OTHER] PO; -[UNRECOGNIZED DRUG - OTHER] PO; -[UNRECOGNIZED DRUG - OTHER] PO; -[UNRECOGNIZED DRUG - OTHER] PO
[2017-02-21 16:45] LABS: ALT/SGPT 31 U/L (12-78); AST/SGOT 14 U/L (15-37); BLOOD UREA NITROGEN 34 mg/dl (7-18); BUN/CREATININE RATIO 16.7 (10-20); CALCIUM 9.3 mg/dl (8.5-10.1); CARBON DIOXIDE 31 mmol/L (21-32); CHLORIDE 94 mmol/L (98-107); CREATININE 2.03 mg/dl (0.60-1.40); GLUCOSE 99 mg/dl (70-99); MAGNESIUM 1.9 mg/dl (1.8-2.4); POTASSIUM 4.5 mmol/L (3.5-5.1); SODIUM 131 mmol/L (136-145); URIC ACID 3.9 mg/dl (2.6-7.2)
[2017-02-21 16:48] LABS: ALB/GLOB RATIO 0.8 (0.9-2); ALKALINE PHOSPHATASE 126 U/L (45-117); PHOSPHORUS 4.1 mg/dl (2.5-4.9)
[2017-02-21 17:41] LABS: ANISOCYTOSIS PRESENT; BASO ABS # 0.01 K/uL (0-0.2); COMPLETE YES; HEMATOCRIT 25.2 % (42-52); LYMPH ABS # 0.14 K/uL (1.2-3.4); MEAN CELL VOLUME 85.4 fL (80-100); MEAN CORPUSCULAR HEMOGLOBIN 27.5 pg (25-34); MEAN CORPUSCULAR HGB CONC 32.1 g/dl (32-36); PLATELET COUNT 106 K/uL (130-400); POLYCHROMASIA 1+; RED BLOOD COUNT 2.95 M/uL (4.7-6.1); TOXIC GRANULATION OCCASIONAL; WHITE BLOOD COUNT 0.31 K/uL (4.8-10.8)
== END | disposition home or self-care (01) ==
LOC: C.LAB 10:39
PROVIDERS: ATTEND Registered Nurse
DX: C83.30 Diffuse large B-cell lymphoma, unspecified site (principal)

== ENCOUNTER 2017-03-12 22:26 | Inpatient (IN) | payer BC ==
[~2017-03-12] VITALS: Ht 185.4 cm; Wt 88.5 kg
[~2017-03-12 22:26] MED LIST changes: -GABA600T PO; -VALA500T39 PO; -dexamethasone PO
[2017-03-12] MEDS ORDERED: CEFEPIME IV 1,000 MG in SYRINGE 0 ML IV STA (22:51)
[2017-03-12] MEDS ORDERED: SODIUM CHLORIDE 0.9% 1000ML 1,000 ML IV STA ×2 (22:55)
[2017-03-12] MEDS ORDERED: ACETAMINOPHEN 500 MG TAB PO STA (22:55)
[2017-03-12] MEDS ORDERED: CEFEPIME IV 1,000 MG in DEXTROSE 5% 100ML 100 ML IV STA (22:55)
[2017-03-12] MEDS ORDERED: POTA1TAB97 PO (23:13)
[2017-03-12] MEDS ORDERED: LEVAQUIN 750MG / 150ML D5W IV STA (23:20)
[2017-03-13] VITALS (17 sets, daily range): BP systolic 101–120; BP diastolic 58–77; PULSE 59–90; TEMP 36.8–38.6; O2SAT 94–100; Ht 185.4 cm; Wt 88.5 kg
[2017-03-13 00:21] LABS: INR 1.1 (0.9-1.1); PARTIAL THROMBOPLASTIN RATIO 1.6
[2017-03-13 00:28] LABS: URINE APPEARANCE CLEAR (CLEAR); URINE BILIRUBIN NEG (NEG); URINE COLOR YELLOW; URINE NITRITE NEG (NEG); URINE SPECIFIC GRAVITY 1.014 (1.000-1.030); UROBILINOGEN NEG (NEG); ZZUR CULT IF INDIC CLEAN CATCH NO
[2017-03-13 00:29] LABS: MANUAL MICROSCOPIC REQUIRED? NO; REVIEW REQ? NO
[2017-03-13] MEDS ORDERED: ACYCLOVIR 400 MG TAB PO STA (00:50)
[2017-03-13] MEDS ORDERED: GABAPENTIN 800 MG TAB PO STA (00:50)
[2017-03-13] MEDS ORDERED: METHADONE HCL 5 MG TAB PO STA (00:50)
[2017-03-13 00:51] LABS: HEMATOCRIT 18.7 % (42-52); MEAN CELL VOLUME 85.4 fL (80-100); MEAN CORPUSCULAR HEMOGLOBIN 28.3 pg (25-34); MEAN CORPUSCULAR HGB CONC 33.2 g/dl (32-36); PLATELET COUNT 53 K/uL (130-400); RED BLOOD COUNT 2.19 M/uL (4.7-6.1)
[2017-03-13 01:12] LABS: ALB/GLOB RATIO 0.9 (0.9-2); ALKALINE PHOSPHATASE 74 U/L (45-117); ALT/SGPT 15 U/L (12-78); AST/SGOT 7 U/L (15-37); BLOOD UREA NITROGEN 22 mg/dl (7-18); BUN/CREATININE RATIO 15.1 (10-20); CALCIUM 7.9 mg/dl (8.5-10.1); CARBON DIOXIDE 28 mmol/L (21-32); CHLORIDE 97 mmol/L (98-107); CREATININE 1.44 mg/dl (0.60-1.40); GLUCOSE 97 mg/dl (70-99); MAGNESIUM 1.3 mg/dl (1.8-2.4); POTASSIUM 3.8 mmol/L (3.5-5.1); SODIUM 134 mmol/L (136-145)
[2017-03-13 01:28] LABS: INFLUENZA A PCR Neg for Influ A (NEG); INFLUENZA B PCR Neg for Influ B (NEG)
[2017-03-13] MEDS ORDERED: MAGNESIUM SULFATE 1GM / D5W 1 GM BAG IV STA (01:31)
--- NOTE | 2017-03-13 02:03 | EMERGENCY ROOM VISIT NOTE ---
History First contact with patient: 22:44 Chief Complaint: FEVER Stated Complaint: NEUTROPENIC FEVER COUGH History of Present Illness The patient is a 32 year old male who presents to the Emergency Room with complaints of cough and fever for the past day. Patient has a history of diffuse large B-cell lymphoma and is currently being treated by an oncologist at [facility], Dr. Sosa, with EPOCH-R plus venetoclax and a Bcl-2 inhibitor. Patient was admitted to this hospital 2 weeks ago for similar episode. Patient received chemotherapy on 1110. He had Neupogen the following day. Patient had repeat blood work the other day with a white blood count of 0.05. No differential was done. Patient has had blood transfused in the past with one last week. No reactions in the past. Patient denies chest pain, dyspnea, abdominal pain, vomiting, diarrhea, headache. He has a mild scratchy throat. He is tolerated by mouth fluids and food. No flu shot. No recent travel outside the formerly [facility], [facility]. Patient is currently on acyclovir. He is no longer on Levaquin or Diflucan. Review of Systems See HPI for pertinent positives & negatives. A total of 10 systems reviewed and were otherwise negative. Past Medical/Surgical History Medical Problems: (1) GERD (gastroesophageal reflux disease) (2) Lymphoma (3) Neutropenic fever (4) Sore throat Surgical Problems: (1) History of liver biopsy Family History Cancer Heart disease Social History Smoking Status: Never Smoker Drug Use: none Marital Status: Housing Status: lives with significant other Occupation Status: employed Current/Historical Medications Scheduled Acyclovir (Zovirax), 800 MG PO BID Allopurinol (Allopurinol), 1 TAB PO DAILY Cetirizine Hcl (Cetirizine Hcl), 1 TAB PO DAILY Dexlansoprazole (Dexilant), 60 MG PO QAM Docusate Sodium (Docusate Sodium), 100 MG PO QAM Docusate Sodium (Docusate Sodium), 200 MG PO HS Dronabinol (Marinol), 2.5 MG PO TIDM Escitalopram Oxalate (Lexapro), 20 MG PO QAM Gabapentin (Neurontin), 800 MG PO TID Lorazepam (Ativan), 1 MG PO HS Methadone Hcl (Dolophine), 20 MG PO Q8 Phenol-Sodium Borate (Ulcerease), 15 ML PO Q6H Potassium Chloride (K-Tab), 20 MEQ PO BID Sennosides (Senna-Lax), 2 TABS PO AMHS Sulfa/Trimethoprim (Bactrim Ds 800MG/160MG), 1 TAB PO 3XWK Venetoclax (Venclexta), 12 TABS PO DAILY@1500 [Magic Mouth Wash], 5 ML PO Q4H Scheduled PRN Bisacodyl (Bisacodyl), 2 TAB PO HS PRN for Constipation Dexlansoprazole (Dexilant), 30 MG PO HS PRN for gerd Oxycodone Immediate Rel Tab (Roxicodone Ir), 10-15 MG PO Q4 PRN for Pain Physical Exam Vital Signs Date Time Temp Pulse Resp B/P (MAP) Pulse Ox O2 Delivery O2 Flow Rate FiO2 03/13/17 01:12 37.2 03/13/17 01:11 83 21 99 03/13/17 01:01 118/71 03/13/17 00:56 85 30 99 03/13/17 00:53 Room Air 03/13/17 00:41 85 20 99 03/13/17 00:31 114/64 03/13/17 00:26 83 20 99 Room Air 03/13/17 00:18 84 03/13/17 00:17 124/66 03/12/17 22:41 39.3 102 18 111/62 95 Room Air Physical Exam VITALS: Vitals are noted on the nurse's note and reviewed by myself. Vital signs febrile GENERAL: White male mildly ill-appearing, nondiaphoretic SKIN: The skin was without rashes, erythema, edema, or bruising. There is no tenting of the skin. Capillary reflex less than 2 seconds. HEAD: Normocephalic atraumatic. EARS: External auditory canals clear, tympanic membranes pearly melendez without erythema or effusion bilaterally. EYES: Pupils equal round and reactive to light and accommodation. Conjunctivae without injection, sclerae without icterus. Extraocular movements intact. NOSE: Patent, turbinates without inflammation or discharge. No sinus tenderness. MOUTH: Mucous membranes mildly dry. Pharynx without erythema or exudate. Uvula midline. Airway patent. Tongue does not deviate. NECK: Supple without nuchal rigidity. No lymphadenopathy. No thyromegaly. Cervical spine is nontender. No JVD. HEART: Regular rate and rhythm without murmurs gallops or rubs. LUNGS: Clear to auscultation bilaterally without wheezes, rales or rhonchi. No dullness to percussion. No retractions or accessory muscle use. ABDOMEN: Positive bowel sounds x 4. Normal tympanic percussion. Soft, nontender, without masses or organomegaly. Moya sign negative. No guarding or rebound tenderness. Rectal exam: Brown stool, guaiac negative. No fissures or tears. Lithographic General Worker present. MUSCULOSKELETAL: No muscle atrophy, erythema, or edema noted. NEURO: Patient was alert and oriented to person place and time. Normal sensation to light and sharp touch. No focal neurological deficits. Medical Decision & Procedures Laboratory Results 03/12/17 23:55 Red Blood Count 2.19, Mean Corpuscular Volume 85.4, Mean Corpuscular Hemoglobin 28.3, Mean Corpuscular Hemoglobin Concent 33.2, Mean Platelet Volume 10.0 03/12/17 23:55 Test 03/12/17 23:48 03/12/17 23:50 03/12/17 23:55 03/13/17 00:15 Bedside Lactic Acid Venous 0.92 mmol/L (0.90-1.70) Urine Color YELLOW Urine Appearance CLEAR (CLEAR) Urine pH 6.0 (4.5-7.5) Urine Specific Cyclone 1.014 (1.000-1.030) Urine Protein NEG (NEG) Urine Glucose (UA) NEG (NEG) Urine Ketones NEG (NEG) Urine Occult Blood NEG (NEG) Urine Nitrite NEG (NEG) Urine Bilirubin NEG (NEG) Urine Urobilinogen NEG (NEG) Urine Leukocyte Esterase NEG (NEG) Urine WBC (Auto) 1-5 /hpf (0-5) Urine RBC (Auto) 0-4 /hpf (0-4) Urine Hyaline Casts (Auto) 1-5 /lpf (0-5) Urine Epithelial Cells (Auto) 10-20 /lpf (0-5) Urine Bacteria (Auto) NEG (NEG) White Blood Count 0.12 K/uL (4.8-10.8) Red Blood Count 2.19 M/uL (4.7-6.1) Hemoglobin 6.2 g/dL (14.0-18.0) Hematocrit 18.7 % (42-52) Mean Corpuscular Volume 85.4 fL (80-100) Mean Corpuscular Hemoglobin 28.3 pg (25-34) Mean Corpuscular Hemoglobin Concent 33.2 g/dl (32-36) Platelet Count 53 K/uL (130-400) Mean Platelet Volume 10.0 fL (7.4-10.4) RDW Standard Deviation 54.9 fL (36.4-46.3) RDW Coefficient of Variation 17.5 % (11.5-14.5) Prothrombin Time 12.0 SECONDS (9.0-12.0) Prothromb Time International Ratio 1.1 (0.9-1.1) Activated Partial Thromboplast Time 41.8 SECONDS (21.0-31.0) Partial Thromboplastin Ratio 1.6 Anion Gap 9.0 mmol/L (3-11) Est Creatinine Clear Calc Drug Dose 81.7 ml/min Estimated GFR () 72.9 Estimated GFR (Non- 62.9 BUN/Creatinine Ratio 15.1 (10-20) Calcium Level 7.9 mg/dl (8.5-10.1) Magnesium Level 1.3 mg/dl (1.8-2.4) Total Bilirubin 0.4 mg/dl (0.2-1) Aspartate Amino Transf (AST/SGOT) 7 U/L (15-37) Alanine Aminotransferase (ALT/SGPT) 15 U/L (12-78) Alkaline Phosphatase 74 U/L (45-117) Troponin I < 0.015 ng/ml (0-0.045) Total Protein 5.5 gm/dl (6.4-8.2) Albumin 2.6 gm/dl (3.4-5.0) Globulin 2.9 gm/dl (2.5-4.0) Albumin/Globulin Ratio 0.9 (0.9-2) Procalcitonin 0.22 ng/ml (0-0.5) Influenza Type A (RT-PCR) Neg for Influ A (NEG) Influenza Type A Antigen Neg for Influ A (NEG) Influenza Type B Antigen Neg for Influ B (NEG) Influenza Type B (RT-PCR) Neg for Influ B (NEG) Medications Administered Medications (Trade) Dose Ordered Sig/Sidney Route Start Time Stop Time Status Last Admin Dose Admin Sodium Chloride 1,000 ml @ 999 mls/hr Q1H1M STAT IV 03/12/17 22:55 03/12/17 23:55 DC 03/13/17 00:07 999 MLS/HR Sodium Chloride 1,000 ml @ 125 mls/hr Q8H STAT IV 03/12/17 22:55 03/13/17 06:54 03/13/17 00:07 125 MLS/HR Acetaminophen (Tylenol Tab) 1,000 mg NOW STAT PO 03/12/17 22:55 03/12/17 22:58 DC 03/13/17 00:02 1,000 MG Levofloxacin (Levaquin / D5W) 750 mg NOW STAT IV 03/12/17 23:20 03/12/17 23:22 DC 03/13/17 00:08 750 MG Cefepime HCl 1000 mg/Syringe 11 ml @ 5.5 mls/min ONE STAT IV 03/12/17 22:51 03/13/17 00:27 DC 03/13/17 00:53 5.5 MLS/MIN ED Course Prior records/ancillary studies reviewed. Triage Nursing notes reviewed. The patient's history was concerning for fever who is a cancer patient receiving chemotherapy. Differential diagnosis: Etiologies such as neutropenic fever, sepsis, UTI, pneumonia, metabolic, electrolyte abnormalities, cardiac sources, intracerebral event, toxicologic, neurologic, as well as others were entertained. Physical examination: As above. Pertinent findings were cough and fever. Vital signs reviewed and revealed fever. ER treatment provided: IV fluid resuscitation with Normal saline solution, 1000 mL bolus. IV fluid hydration with Normal saline solution at 125 mL/hr. Blood and urine cultures Antibiotics: Cefepime, Levaquin On reassessment the patient vital signs improved. Diagnostics interpretation by me: ECG: Normal sinus, normal intervals, no acute ST-T wave changes. Impression normal sinus rhythm interpreted by myself The labs revealed pancytopenia and neutropenic on CBC. Chemistry panel revealed low magnesium. LFTs revealed. Cardiac enzymes were negative. Serum Lactate measurement was negative Blood and urine cultures are pending. Imaging studies: Chest xray revealed no acute consolidation, pneumothorax or free air when compared to prior chest x-ray. Per my interpretation. I spoke to the patient's oncologist, Dr. Sosa, at [facility], he recommends admission and cefepime for antibiotics. He does not recommend vancomycin Levaquin or antifungals or any other antibiotics at this time. Dr. Sosa's phone number is [phone] Consultation: A consultation was placed with Dr Neri, hospitalist. The case was discussed and diagnostics were reviewed. The patient was evaluated in the ER for further treatment. Exam and history seem consistent with neutropenic fever with the patient remained pancytopenic and anemic. He was started on cefepime and typed and crossmatched for 2 units of blood. No history of transfusion reactions in the past. Patient was consented to this and was given irradiated blood. No new pneumonia on x-ray. Blood cultures pending. Negative lactic acid and pro calcitonin. Patient was reevaluated multiple times. Neutropenic precautions were immediately implemented. Patient is agreeable to treatment plan of admission. Case reviewed with my attending Medical Decision As above Medication Reconcilliation Current Medication List: was personally reviewed by me Blood Pressure Screening Patient's blood pressure: Normal blood pressure Impression Primary Impression: Neutropenic fever Additional Impression: Pancytopenia Departure Information Dispostion Being Evaluated By Hospitalist Condition FAIR Referrals Dorian Franz M.D. (PCP) Patient Instructions My [facility] Problem Qualifiers
--- NOTE | 2017-03-13 02:14 | History and Physical ---
History & Physical Date & Time of Service: Mar 13, 2017 at 02:13 Chief Complaint: Neutropenic Fever Cough Primary Care Physician: Dorian Franz M.D. History of Present Illness Source: patient Mr Reyes is a 32 yo M with multiply-relapsed diffuse B-cell Lymphoma, currently receiving chemotherapy at [facility], who presents with a fever for a day. He also reports one day of non-productive cough. He was recently admitted 02/24-02/27 for a similar occurrence, but no source of fever was found. He is currently being treated with EPOCH-R plus Veneotclax, a Bcl-2 inhibitor, which he started late January. He reports he tends to get a fever every night, usually around 99F and sometimes in the low 100's. He is also anemic now, reports he has been transfused recently. He reports he is dizzy if he gets up too fast. He reports compared to last time, he is eating better and more active, while previously he was more sedentary. He reports he had an episode of diarrhea about 2-3 days ago , so he stopped his usual bowel regimen, but now is constipated and feels he needs to start it. He denies any darkening of the stool. Past Medical/Surgical History PMHx: Diffuse B-Cell Lymphoma GERD PSHx: Liver biopsy Port placement Family History Cancer Heart disease Social History Smoking Status: Never Smoker Drug Use: none Marital Status: Housing status: lives with family Occupational Status: employed Immunizations History of Influenza Vaccine: No History of Tetanus Vaccine?: Unknown History of Pneumococcal: Unknown History of Hepatitis B Vaccine: Unknown Multi-Drug Resistant Organisms History of MDRO: No Allergies Coded Allergies: Erythromycin (Verified Adverse Reaction, Intermediate, GI SYMPTOMS, ) Prochlorperazine (Verified Adverse Reaction, Unknown, change in mental status, 03/12/17) Home Medications Scheduled Acyclovir (Zovirax), 800 MG PO BID Allopurinol (Allopurinol), 1 TAB PO DAILY Cetirizine Hcl (Cetirizine Hcl), 1 TAB PO DAILY Dexlansoprazole (Dexilant), 60 MG PO QAM Docusate Sodium (Docusate Sodium), 100 MG PO QAM Docusate Sodium (Docusate Sodium), 200 MG PO HS Dronabinol (Marinol), 2.5 MG PO TIDM Escitalopram Oxalate (Lexapro), 20 MG PO QAM Gabapentin (Neurontin), 800 MG PO TID Lorazepam (Ativan), 1 MG PO HS Methadone Hcl (Dolophine), 20 MG PO Q8 Phenol-Sodium Borate (Ulcerease), 15 ML PO Q6H Potassium Chloride (K-Tab), 20 MEQ PO BID Sennosides (Senna-Lax), 2 TABS PO AMHS Sulfa/Trimethoprim (Bactrim Ds 800MG/160MG), 1 TAB PO 3XWK Venetoclax (Venclexta), 12 TABS PO DAILY@1500 [Magic Mouth Wash], 5 ML PO Q4H Scheduled PRN Bisacodyl (Bisacodyl), 2 TAB PO HS PRN for Constipation Dexlansoprazole (Dexilant), 30 MG PO HS PRN for gerd Oxycodone Immediate Rel Tab (Roxicodone Ir), 10-15 MG PO Q4 PRN for Pain Review of Systems See HPI for pertinent positives & negatives. A total of 10 systems reviewed and were otherwise negative. Physical Exam Vital Signs Date Time Temp Pulse Resp B/P (MAP) Pulse Ox O2 Delivery O2 Flow Rate FiO2 03/13/17 01:12 37.2 03/13/17 01:11 83 21 99 03/13/17 01:01 118/71 03/13/17 00:56 85 30 99 03/13/17 00:53 Room Air 03/13/17 00:41 85 20 99 03/13/17 00:31 114/64 03/13/17 00:26 83 20 99 Room Air 03/13/17 00:18 84 03/13/17 00:17 124/66 03/12/17 22:41 39.3 102 18 111/62 95 Room Air General Appearance: WD/WN, no apparent distress, + pertinent finding (pale) Head: normocephalic, atraumatic Eyes: normal inspection, PERRL ENT: hearing grossly normal Neck: supple, no JVD Respiratory/Chest: lungs clear, normal breath sounds, no respiratory distress Cardiovascular: regular rate, rhythm, no murmur, normal peripheral pulses Abdomen/GI: normal bowel sounds, non tender, soft Back: normal inspection, no CVA tenderness, no muscle spasm, normal range of motion Extremities/Musculoskelatal: no calf tenderness, no pedal edema Neurologic/Psych: alert, normal mood/affect, normal reflexes, oriented x 3 Skin: no rash Diagnostics Laboratory Results Results Past 24 Hours Test 03/12/17 23:48 03/12/17 23:50 03/12/17 23:55 03/13/17 00:15 Range/Units Bedside Lactic Acid Venous 0.92 0.90-1.70 mmol/L Urine Color YELLOW Urine Appearance CLEAR CLEAR Urine pH 6.0 4.5-7.5 Urine Specific [place] 1.014 1.000-1.030 Urine Protein NEG NEG Urine Glucose (UA) NEG NEG Urine Ketones NEG NEG Urine Occult Blood NEG NEG Urine Nitrite NEG NEG Urine Bilirubin NEG NEG Urine Urobilinogen NEG NEG Urine Leukocyte Esterase NEG NEG Urine WBC (Auto) 1-5 0-5 /hpf Urine RBC (Auto) 0-4 0-4 /hpf Urine Hyaline Casts (Auto) 1-5 0-5 /lpf Urine Epithelial Cells (Auto) 10-20 0-5 /lpf Urine Bacteria (Auto) NEG NEG White Blood Count 0.12 4.8-10.8 K/uL Red Blood Count 2.19 4.7-6.1 M/uL Hemoglobin 6.2 14.0-18.0 g/dL Hematocrit 18.7 42-52 % Mean Corpuscular Volume 85.4 80-100 fL Mean Corpuscular Hemoglobin 28.3 25-34 pg Mean Corpuscular Hemoglobin Concent 33.2 32-36 g/dl Platelet Count 53 130-400 K/uL Mean Platelet Volume 10.0 7.4-10.4 fL RDW Standard Deviation 54.9 36.4-46.3 fL RDW Coefficient of Variation 17.5 11.5-14.5 % Prothrombin Time 12.0 9.0-12.0 SECONDS Prothromb Time International Ratio 1.1 0.9-1.1 Activated Partial Thromboplast Time 41.8 21.0-31.0 SECONDS Partial Thromboplastin Ratio 1.6 Sodium Level 134 136-145 mmol/L Potassium Level 3.8 3.5-5.1 mmol/L Chloride Level 97 98-107 mmol/L Carbon Dioxide Level 28 21-32 mmol/L Anion Gap 9.0 3-11 mmol/L Blood Urea Nitrogen 22 7-18 mg/dl Creatinine 1.44 0.60-1.40 mg/dl Est Creatinine Clear Calc Drug Dose 81.7 ml/min Estimated GFR () 72.9 Estimated GFR (Non- 62.9 BUN/Creatinine Ratio 15.1 10-20 Random Glucose 97 70-99 mg/dl Calcium Level 7.9 8.5-10.1 mg/dl Magnesium Level 1.3 1.8-2.4 mg/dl Total Bilirubin 0.4 0.2-1 mg/dl Aspartate Amino Transf (AST/SGOT) 7 15-37 U/L Alanine Aminotransferase (ALT/SGPT) 15 12-78 U/L Alkaline Phosphatase 74 45-117 U/L Troponin I < 0.015 0-0.045 ng/ml Total Protein 5.5 6.4-8.2 gm/dl Albumin 2.6 3.4-5.0 gm/dl Globulin 2.9 2.5-4.0 gm/dl Albumin/Globulin Ratio 0.9 0.9-2 Procalcitonin 0.22 0-0.5 ng/ml Influenza Type A (RT-PCR) Neg for Influ A NEG Influenza Type A Antigen Neg for Influ A NEG Influenza Type B Antigen Neg for Influ B NEG Influenza Type B (RT-PCR) Neg for Influ B NEG Microbiology Results 03/12/17 Blood Culture, Received Pending 03/12/17 Blood Culture, Received Pending 03/12/17 Group A Streptococcus Screen - Final, Resulted SPECIMEN NEGATIVE FOR GROUP A BETA ST... 03/12/17 Group A Streptococcus Screen (JAMES), Resulted Pending CXR normal Impression Assessment and Plan 32 yo M with diffuse recurrent B cell lymphoma, with neutropenic fever Neutropenic fever - Contact precautions - Cefepime for empiric treatment - Cultures obtained - ID consult - Tylenol for fever Acute anemia - Transfuse 2 units PRBC's, pt consented in ED - Repeat labs in AM B cell Lymphoma - Continue current chemo regime and pain regime (Methadone with Oxy IR) - Oncology consult Anxiety / Insomnia - Ativan 1mg PO qHS, give at least 30 min or so after his methadone Opioid-induced constipation - Restart his Senna from home - Miralax / Lactulose PRN Admitted to 4E Full Code SCDs Resident Physician Supervision Note: I was present with Dr. Brewer during the history and exam. I discussed the case with the resident and agree with the findings and plan as documented in the note. Any exceptions or clarifications are listed here: 32 y/o M hx CKD, advanced B cell lymphoma - currently in a [facility] trial with a tyrosine kinase inhibitor for chemo. Presenting with fever and no clear source - He does have an access line and was admitted with a similar presentation 2 weeks prior - blood culture at the time revealed no growth. Pt is neutropenic at present and labs are notable for anemia as well. He has suboptimal renal function due to lymphoma infiltration. He describes an episode of diarrhea 2 days prior which resolved and denies additional focal signs. OE Pt is pale - AAO x 3 Per resident exam - S1,2 R CTAB NT, ND No CCE P: Placed on Cefepime and cultures redrawn - Would consider add of Vanc if MRSA swab + or if fever does not subside. We will consult ID - due to rapid recurrence of infection - line removal, culture and replacement should be considered We have requested 2 units PRBCs and will consult his local oncologist due to pancytopenia. Above discussed with pt , ER attending and resident. Documented By: Valente Neri VTE Prophylaxis VTE Risk Assessment Done? Y/N: Yes Risk Level: High Given or contraindicated: Contraindicated Resident Tracking Resident Involvement: Resident Care Provided Care Provided: Adult Hospital Medicine
[2017-03-13] MEDS ORDERED: POLYETHYLENE (MIRALAX) 17 GM PACK PO PRN (02:15)
[2017-03-13] MEDS ORDERED: BISACODYL 5 MG TABEC PO PRN (02:15)
[2017-03-13] MEDS ORDERED: PHENOL PO SCH (02:15)
[2017-03-13] MEDS ORDERED: [UNRECOGNIZED DRUG - OTHER] PO SCH (02:15)
[2017-03-13] MEDS ORDERED: ALUMINUM/MAGNESIUM/SIMETH (MAALOX MAX) 30 ML UDC PO PRN (02:15)
[2017-03-13] MEDS ORDERED: MAGNESIUM HYDROXIDE SUSP 30 ML UDC PO PRN (02:15)
[2017-03-13] MEDS ORDERED: DEXLANSOPRAZOLE 30 MG PO PRN (02:15)
[2017-03-13] MEDS ORDERED: MAGIC MOUTH WASH PO SCH (02:15)
[2017-03-13] MEDS ORDERED: ONDANSETRON INJ 2 MG/ML 2 ML VIAL IV PRN (02:15)
[2017-03-13] MEDS ORDERED: OXYCODONE HCL IR 5 MG TAB (IMMEDIATE RELEASE) PO PRN (02:15)
[2017-03-13] MEDS ORDERED: MAGNESIUM CHLORIDE 64MG DELAYED REL TAB PO STA (02:33)
[2017-03-13 02:46] LABS: WHITE BLOOD COUNT 0.12 K/uL (4.8-10.8)
[2017-03-13 02:55] LABS: COMPLETE YES
[2017-03-13] MEDS ORDERED: LIDOCAINE HCL 2% VISCOUS SOLN 60 ML, DiphenhydrAMINE HCL SYRUP 150 MG, ALUMINUM/MAGNESI... MT PRN ×4 (03:45)
[2017-03-13] MEDS: METHADONE HCL 10 MG TAB PO SCH ×4 (05:51→23:33)
--- NOTE | 2017-03-13 06:36 | DIAGNOSTIC IMAGING REPORT ---
CHEST ONE VIEW PORTABLE CLINICAL HISTORY: Sepsis COMPARISON STUDY: 02/25/2017 FINDINGS: The cardiac and mediastinal contours remain stable. The right-sided A-Port catheter remains unchanged in position. There is minimal interval improvement in the masslike airspace opacities located within the left midlung zone and left lung base. There is no acute parenchymal consolidation. There are no pleural effusions.[ IMPRESSION: 1. Minimal interval improvement in the masslike airspace opacities within the left midlung zone and left lung base. Electronically signed by: Mikal Phan M.D. 03/13/2017 6:34 AM Dictated Date/Time: 03/13/2017 6:32 AM
[2017-03-13] MEDS ORDERED: GABAPENTIN 800 MG TAB PO SCH (08:00)
[2017-03-13] MEDS: DEXLANSOPRAZOLE 60 MG CAPDR PO SCH (08:04)
[2017-03-13] MEDS: DOCUSATE SODIUM 100 MG CAP PO SCH ×2 (08:04→22:07)
[2017-03-13] MEDS: ACYCLOVIR 400 MG TAB PO SCH ×2 (08:05→22:07)
[2017-03-13] MEDS: SENNA 8.6 MG TAB PO SCH ×2 (08:05→22:08)
[2017-03-13] MEDS: ESCITALOPRAM OXALATE 20 MG TAB PO SCH (08:05)
[2017-03-13] MEDS: ALLOPURINOL 300 MG TAB PO SCH (08:05)
[2017-03-13] MEDS: CETIRIZINE HCL 10 MG TAB PO SCH (08:05)
[2017-03-13] MEDS: SULFAMETHOXAZOLE/TRIMETHOPRIM DS 800/160MG TAB PO SCH (08:06)
[2017-03-13] MEDS: POTASSIUM CHLORIDE 20 MEQ TABCR PO SCH ×2 (08:06→17:51)
[2017-03-13] MEDS: DRONABINOL 2.5 MG CAP PO SCH ×3 (08:13→17:52)
[2017-03-13] MEDS: CEFEPIME IV 1,000 MG in SYRINGE 0 ML IV SCH ×3 (08:19→23:28)
[2017-03-13] MEDS: VENETOCLAX 100 MG TAB PO SCH (14:58)
[2017-03-13] MEDS: BOOST PLUS VANILLA PO SCH ×4 (14:59→20:00)
--- NOTE | 2017-03-13 15:12 | Medical Consult ---
Consultation Date of Consultation: Mar 13, 2017. Attending Physician: Bernard Hu D.O. Reason for Consultation: Neutropenic fever History of Present Illness 32-year-old male well known to me from recent hospitalization with history of diffuse B-cell lymphoma which has been progressive, now undergoing chemotherapy at the [facility]. He was hospitalized earlier this month with fever and neutropenia, with negative workup for source and improvement after recovery of white blood cell count. Subsequently had additional chemotherapy, now has been readmitted with several days of worsening fever, weakness, some dizziness, 1 episode of diarrhea, slight cough. Started empirically as per [facility] on cefepime. Blood cultures are pending, no growth so far. No other localizing symptoms. No significant travel or other exposures. Past Medical/Surgical History Medical Problems: (1) Acute kidney injury Status: Acute (2) Fever Status: Acute (3) Pancytopenia Status: Acute Medical Problems: (1) Anemia (2) GERD (gastroesophageal reflux disease) (3) Lymphoma (4) Neutropenic fever (5) Sore throat Surgical Problems: (1) History of liver biopsy Family History Cancer Heart disease Social History Smoking Status: Never Smoker Drug Use: none Marital Status: Housing Status: lives with significant other Occupation Status: employed Allergies Coded Allergies: Erythromycin (Verified Adverse Reaction, Intermediate, GI SYMPTOMS, ) Prochlorperazine (Verified Adverse Reaction, Unknown, change in mental status, 03/12/17) Current Inpatient Medications Current Inpatient Medications Medications (Trade) Dose Ordered Sig/Sidney Route Start Time Stop Time Status Last Admin Dose Admin Acetaminophen (Tylenol Tab) 650 mg Q4H PRN PO 03/13/17 02:15 04/12/17 02:14 Al Hydrox/Mg Hydrox/Simethicone (Maalox Max Susp) 15 ml Q4H PRN PO 03/13/17 02:15 04/12/17 02:14 Magnesium Hydroxide (Milk Of Magnesia Susp) 30 ml Q6H PRN PO 03/13/17 02:15 04/12/17 02:14 Polyethylene (Miralax Powder Packet) 17 gm DAILY PRN PO 03/13/17 02:15 04/12/17 02:14 Ondansetron HCl (Zofran Inj) 4 mg Q6H PRN IV 03/13/17 02:15 04/12/17 02:14 Acyclovir (Zovirax Tab) 800 mg BID PO 03/13/17 08:00 04/12/17 08:59 03/13/17 08:05 800 MG Allopurinol (Zyloprim Tab) 300 mg DAILY PO 03/13/17 08:00 04/12/17 08:59 03/13/17 08:05 300 MG Bisacodyl (Dulcolax Tab) 10 mg HS PRN PO 03/13/17 02:15 04/12/17 02:14 Docusate Sodium (coLACE CAP) 100 mg QAM PO 03/13/17 08:00 04/12/17 08:59 03/13/17 08:04 100 MG Docusate Sodium (coLACE CAP) 200 mg HS PO 03/13/17 21:00 04/12/17 20:59 Dronabinol (Marinol Cap) 2.5 mg TIDM PO 03/13/17 08:00 04/12/17 07:59 03/13/17 12:30 2.5 MG Escitalopram Oxalate (Lexapro Tab) 20 mg QAM PO 03/13/17 08:00 04/12/17 08:59 03/13/17 08:05 20 MG Lorazepam (Ativan Tab) 1 mg HS PO 03/13/17 21:00 04/12/17 20:59 Oxycodone HCl (Roxicodone Immediate Rel Tab) 10 mg Q4 PRN PO 03/13/17 02:15 03/27/17 02:14 Senna (Senokot Tab) 17.2 mg AMHS PO 03/13/17 08:00 04/12/17 08:59 03/13/17 08:05 17.2 MG Trimethoprim/ Sulfamethoxazole (Septra Ds 800/ 160MG Tab) 1 tab MoWeFr@0900 PO 03/13/17 09:00 04/12/17 08:59 03/13/17 08:06 1 TAB Cetirizine HCl (zyrTEC TAB) 10 mg DAILY PO 03/13/17 08:00 04/12/17 08:59 03/13/17 08:05 10 MG Dexlansoprazole (Dexilant Dr) 30 mg HS PRN PO 03/13/17 02:15 12/22/17 02:14 Dexlansoprazole (Dexilant Dr) 60 mg DAILY PO 03/13/17 08:00 04/12/17 07:59 03/13/17 08:04 60 MG Potassium Chloride (Klor-Con Tab) 20 meq BID17 PO 03/13/17 09:00 04/12/17 08:59 03/13/17 08:06 20 MEQ Venetoclax (Venclexta) 1,200 mg DAILY@1500 PO 03/13/17 15:00 04/12/17 14:59 03/13/17 14:58 1,200 MG Cefepime HCl 1000 mg/Syringe 11 ml @ 5.5 mls/min Q8H IV 03/13/17 08:00 03/15/17 07:59 03/13/17 08:19 5.5 MLS/MIN Lidocaine HCl/ Diphenhydramine HCl/Al Hydroxide/ Mg Hydroxide/ Glycerin/Barcode Q4H PRN MT 03/13/17 03:45 04/12/17 03:44 Heparin Sodium (Porcine) (Heparin 100 Unit/ml 5ml Flush) 5 ml PRN PRN IV 03/13/17 07:45 04/12/17 07:44 03/13/17 11:08 5 ML Enteral Nutritional Formula (Boost Plus Vanilla) 1 can TID PO 03/13/17 14:00 04/12/17 13:59 03/13/17 14:59 1 CAN Methadone HCl (Dolophine Tab) 20 mg Q8@0000,0800,1600 PO 03/13/17 16:00 03/27/17 15:59 Gabapentin (Neurontin Tab) 800 mg Q8@0000,0800,1600 PO 03/13/17 16:00 04/12/17 15:59 Review of Systems Constitutional: + fever, + chills Eyes: No problem reported ENT: No problem reported Respiratory: + cough Cardiovascular: No problem reported Abdomen: + diarrhea Musculoskeletal: No problem reported Genitourinary - Male: No problem reported Neurologic: No problem reported Psychiatric: No problem reported Endocrine: No problem reported Hematologic / Lymphatic: No problem reported Integumentary: No problem reported Allergic / Immunologic: No problem reported Physical Exam Date Time Temp Pulse Resp B/P (MAP) Pulse Ox O2 Delivery O2 Flow Rate FiO2 03/13/17 14:00 37.8 90 18 106/67 (80) 99 Room Air 03/13/17 10:59 37.4 84 18 102/64 94 03/13/17 10:10 38.3 73 18 115/69 03/13/17 09:40 37.3 66 16 118/75 97 03/13/17 09:10 37.7 70 16 114/70 03/13/17 08:55 38.2 71 18 120/77 03/13/17 08:35 37.9 62 16 120/68 03/13/17 08:00 Room Air 03/13/17 07:50 37.4 68 18 114/70 (85) 97 Room Air 03/13/17 06:45 37.2 64 16 111/66 (81) 99 Room Air 03/13/17 05:45 37.1 59 16 111/67 (82) 99 Room Air 03/13/17 05:28 36.8 70 16 101/58 (72) 98 Room Air 03/13/17 05:15 37.4 72 16 101/62 (75) 98 Room Air 03/13/17 04:45 37.1 65 16 105/60 97 03/13/17 02:55 68 24 109/54 96 03/13/17 02:46 67 23 96 03/13/17 02:35 36.8 76 20 107/62 96 Room Air 03/13/17 02:31 77 28 96 03/13/17 02:16 87 21 96 03/13/17 02:01 85 18 97 03/13/17 01:46 85 22 98 03/13/17 01:16 83 24 98 03/13/17 01:12 37.2 03/13/17 01:11 83 21 99 03/13/17 01:01 118/71 03/13/17 00:56 85 30 99 03/13/17 00:53 Room Air 03/13/17 00:41 85 20 99 03/13/17 00:31 114/64 03/13/17 00:26 83 20 99 Room Air 03/13/17 00:18 84 03/13/17 00:17 124/66 03/12/17 22:41 39.3 102 18 111/62 95 Room Air General Appearance: WD/WN, no apparent distress Head: normocephalic, atraumatic Eyes: EOMI, sclerae normal, + pertinent finding (Pale conjunctivae) ENT: normal ENT inspection, hearing grossly normal, pharynx normal Neck: supple, no adenopathy, thyroid normal, trachea midline Respiratory/Chest: chest non-tender, lungs clear, normal breath sounds, no respiratory distress Cardiovascular: regular rate, rhythm, no gallop, no murmur Abdomen/GI: normal bowel sounds, non tender, soft, no organomegaly Back: normal inspection, no CVA tenderness Extremities/Musculoskelatal: no calf tenderness, normal capillary refill, non- tender Neurologic/Psych: alert, normal mood/affect, oriented x 3 Skin: normal color, warm/dry, no rash Lymphatic: no adenopathy Laboratory Results Date/Time Source Procedure Growth Status 03/12/17 23:55 Blood Blood Culture Pending Received 03/12/17 23:45 Blood Blood Culture Pending Received 03/12/17 23:10 Throat Group A Streptococcus Screen - Final SPECIMEN NEGATIVE FOR GROUP A BETA ST... Resulted 03/12/17 23:10 Throat Group A Streptococcus Screen (JAMES) Pending Resulted Last 24 Hours Test 03/12/17 23:48 03/12/17 23:50 03/12/17 23:55 03/13/17 00:15 Bedside Lactic Acid Venous 0.92 mmol/L Urine Color YELLOW Urine Appearance CLEAR Urine pH 6.0 Urine Specific [place] 1.014 Urine Protein NEG Urine Glucose (UA) NEG Urine Ketones NEG Urine Occult Blood NEG Urine Nitrite NEG Urine Bilirubin NEG Urine Urobilinogen NEG Urine Leukocyte Esterase NEG Urine WBC (Auto) 1-5 /hpf Urine RBC (Auto) 0-4 /hpf Urine Hyaline Casts (Auto) 1-5 /lpf Urine Epithelial Cells (Auto) 10-20 /lpf Urine Bacteria (Auto) NEG White Blood Count 0.12 K/uL Red Blood Count 2.19 M/uL Hemoglobin 6.2 g/dL Hematocrit 18.7 % Mean Corpuscular Volume 85.4 fL Mean Corpuscular Hemoglobin 28.3 pg Mean Corpuscular Hemoglobin Concent 33.2 g/dl Platelet Count 53 K/uL Mean Platelet Volume 10.0 fL RDW Standard Deviation 54.9 fL RDW Coefficient of Variation 17.5 % Neutrophils % (Manual) % Lymphocytes % (Manual) % Lymphocytes # (Manual) K/uL Total Absolute Lymphocytes K/uL Prothrombin Time 12.0 SECONDS Prothromb Time International Ratio 1.1 Activated Partial Thromboplast Time 41.8 SECONDS Partial Thromboplastin Ratio 1.6 Sodium Level 134 mmol/L Potassium Level 3.8 mmol/L Chloride Level 97 mmol/L Carbon Dioxide Level 28 mmol/L Anion Gap 9.0 mmol/L Blood Urea Nitrogen 22 mg/dl Creatinine 1.44 mg/dl Est Creatinine Clear Calc Drug Dose 81.7 ml/min Estimated GFR () 72.9 Estimated GFR (Non- 62.9 BUN/Creatinine Ratio 15.1 Random Glucose 97 mg/dl Calcium Level 7.9 mg/dl Magnesium Level 1.3 mg/dl Total Bilirubin 0.4 mg/dl Aspartate Amino Transf (AST/SGOT) 7 U/L Alanine Aminotransferase (ALT/SGPT) 15 U/L Alkaline Phosphatase 74 U/L Troponin I < 0.015 ng/ml Total Protein 5.5 gm/dl Albumin 2.6 gm/dl Globulin 2.9 gm/dl Albumin/Globulin Ratio 0.9 Procalcitonin 0.22 ng/ml Influenza Type A (RT-PCR) Neg for Influ A Influenza Type A Antigen Neg for Influ A Influenza Type B Antigen Neg for Influ B Influenza Type B (RT-PCR) Neg for Influ B [~ rep ct add3]] CHEST ONE VIEW PORTABLE CLINICAL HISTORY: Sepsis COMPARISON STUDY: 02/25/2017 FINDINGS: The cardiac and mediastinal contours remain stable. The right-sided A-Port catheter remains unchanged in position. There is minimal interval improvement in the masslike airspace opacities located within the left midlung zone and left lung base. There is no acute parenchymal consolidation. There are no pleural effusions.[ IMPRESSION: 1. Minimal interval improvement in the masslike airspace opacities within the left midlung zone and left lung base. Electronically signed by: Mikal Phan M.D. 03/13/2017 6:34 AM Dictated Date/Time: 03/13/2017 6:32 AM The status of this report is Signed. Draft = No Assessment & Plan 32-year-old male with progressive B-cell lymphoma now with recurrent fever in the setting of profound neutropenia. This episode is quite similar to his previous hospitalization. No obvious evidence of infection of his a port. Patient to be treated with IV cefepime pending further culture results. Await recovery of white blood cell count. Will follow.
--- NOTE | 2017-03-13 15:45 | Oncology Consultation ---
Oncology/Heme Consultation Date of Consultation: Mar 13, 2017. Attending Physician: Bernard Hu D.O. Reason for Consultation: History of non-Hodgkin's lymphoma status post R-EPOCH therapy. Presents now with neutropenic fever History of Present Illness Mr. John is a 32-year-old gentleman well known to [facility] with a history of large cell B cell non-Hodgkin's lymphoma. This was felt not to be a double hit lymphoma and he was treated initially with R CHOP. He had presented with inguinal adenopathy as well as metastatic deposit within the liver. He was treated to remission but unfortunately the remission was not very durable. Patient would recur soon afterwards it was treated with salvage regimens but unfortunately the tumors have continued to progress. He is now on an experimental therapy conducted at [facility]. He is status post CART therapy as well as immunotherapy. His most recent systemic chemotherapy the patient reviews with us and he is very knowledgeable about his therapy has been R-EPOCH. He called last evening with fever and the patient has been admitted with severe neutropenia. He has been supported with Neulasta following his recent chemotherapy. He denies shortness of breath dysuria abdominal pain diarrhea nausea or vomiting Past Medical/Surgical History Medical Problems: (1) Acute kidney injury Status: Acute (2) Fever Status: Acute (3) Pancytopenia Status: Acute Family History Cancer Heart disease Social History Smoking Status: Never Smoker Drug Use: none Marital Status: Housing Status: lives with significant other Occupation Status: employed Allergies Coded Allergies: Erythromycin (Verified Adverse Reaction, Intermediate, GI SYMPTOMS, ) Prochlorperazine (Verified Adverse Reaction, Unknown, change in mental status, 03/12/17) Home Medications Scheduled Acyclovir (Zovirax), 800 MG PO BID Allopurinol (Allopurinol), 1 TAB PO DAILY Cetirizine Hcl (Cetirizine Hcl), 1 TAB PO DAILY Dexlansoprazole (Dexilant), 60 MG PO QAM Docusate Sodium (Docusate Sodium), 100 MG PO QAM Docusate Sodium (Docusate Sodium), 200 MG PO HS Dronabinol (Marinol), 2.5 MG PO TIDM Escitalopram Oxalate (Lexapro), 20 MG PO QAM Gabapentin (Neurontin), 800 MG PO TID Lorazepam (Ativan), 1 MG PO HS Methadone Hcl (Dolophine), 20 MG PO Q8 Phenol-Sodium Borate (Ulcerease), 15 ML PO Q6H Potassium Chloride (K-Tab), 20 MEQ PO BID Sennosides (Senna-Lax), 2 TABS PO AMHS Sulfa/Trimethoprim (Bactrim Ds 800MG/160MG), 1 TAB PO 3XWK Venetoclax (Venclexta), 12 TABS PO DAILY@1500 [Magic Mouth Wash], 5 ML PO Q4H Scheduled PRN Bisacodyl (Bisacodyl), 2 TAB PO HS PRN for Constipation Dexlansoprazole (Dexilant), 30 MG PO HS PRN for gerd Oxycodone Immediate Rel Tab (Roxicodone Ir), 10-15 MG PO Q4 PRN for Pain Current Inpatient Medications Current Inpatient Medications Medications (Trade) Dose Ordered Sig/Sidney Route Start Time Stop Time Status Last Admin Dose Admin Acetaminophen (Tylenol Tab) 650 mg Q4H PRN PO 03/13/17 02:15 04/12/17 02:14 Al Hydrox/Mg Hydrox/Simethicone (Maalox Max Susp) 15 ml Q4H PRN PO 03/13/17 02:15 04/12/17 02:14 Magnesium Hydroxide (Milk Of Magnesia Susp) 30 ml Q6H PRN PO 03/13/17 02:15 04/12/17 02:14 Polyethylene (Miralax Powder Packet) 17 gm DAILY PRN PO 03/13/17 02:15 04/12/17 02:14 Ondansetron HCl (Zofran Inj) 4 mg Q6H PRN IV 03/13/17 02:15 04/12/17 02:14 Acyclovir (Zovirax Tab) 800 mg BID PO 03/13/17 08:00 04/12/17 08:59 03/13/17 08:05 800 MG Allopurinol (Zyloprim Tab) 300 mg DAILY PO 03/13/17 08:00 04/12/17 08:59 03/13/17 08:05 300 MG Bisacodyl (Dulcolax Tab) 10 mg HS PRN PO 03/13/17 02:15 04/12/17 02:14 Docusate Sodium (coLACE CAP) 100 mg QAM PO 03/13/17 08:00 04/12/17 08:59 03/13/17 08:04 100 MG Docusate Sodium (coLACE CAP) 200 mg HS PO 03/13/17 21:00 04/12/17 20:59 Dronabinol (Marinol Cap) 2.5 mg TIDM PO 03/13/17 08:00 04/12/17 07:59 03/13/17 12:30 2.5 MG Escitalopram Oxalate (Lexapro Tab) 20 mg QAM PO 03/13/17 08:00 04/12/17 08:59 03/13/17 08:05 20 MG Lorazepam (Ativan Tab) 1 mg HS PO 03/13/17 21:00 04/12/17 20:59 Oxycodone HCl (Roxicodone Immediate Rel Tab) 10 mg Q4 PRN PO 03/13/17 02:15 03/27/17 02:14 Senna (Senokot Tab) 17.2 mg AMHS PO 03/13/17 08:00 04/12/17 08:59 03/13/17 08:05 17.2 MG Trimethoprim/ Sulfamethoxazole (Septra Ds 800/ 160MG Tab) 1 tab MoWeFr@0900 PO 03/13/17 09:00 04/12/17 08:59 03/13/17 08:06 1 TAB Cetirizine HCl (zyrTEC TAB) 10 mg DAILY PO 03/13/17 08:00 04/12/17 08:59 03/13/17 08:05 10 MG Dexlansoprazole (Dexilant Dr) 30 mg HS PRN PO 03/13/17 02:15 04/12/17 02:14 Dexlansoprazole (Dexilant Dr) 60 mg DAILY PO 03/13/17 08:00 04/12/17 07:59 03/13/17 08:04 60 MG Potassium Chloride (Klor-Con Tab) 20 meq BID17 PO 03/13/17 09:00 04/12/17 08:59 03/13/17 08:06 20 MEQ Venetoclax (Venclexta) 1,200 mg DAILY@1500 PO 03/13/17 15:00 04/12/17 14:59 03/13/17 14:58 1,200 MG Cefepime HCl 1000 mg/Syringe 11 ml @ 5.5 mls/min Q8H IV 03/13/17 08:00 03/15/17 07:59 03/13/17 08:19 5.5 MLS/MIN Lidocaine HCl/ Diphenhydramine HCl/Al Hydroxide/ Mg Hydroxide/ Glycerin/Barcode Q4H PRN MT 03/13/17 03:45 04/12/17 03:44 Heparin Sodium (Porcine) (Heparin 100 Unit/ml 5ml Flush) 5 ml PRN PRN IV 03/13/17 07:45 04/12/17 07:44 03/13/17 11:08 5 ML Enteral Nutritional Formula (Boost Plus Vanilla) 1 can TID PO 03/13/17 14:00 04/12/17 13:59 03/13/17 14:59 1 CAN Methadone HCl (Dolophine Tab) 20 mg Q8@0000,0800,1600 PO 03/13/17 16:00 03/27/17 15:59 Gabapentin (Neurontin Tab) 800 mg Q8@0000,0800,1600 PO 03/13/17 16:00 04/12/17 15:59 Review of Systems Constitutional: Negative for night sweats, or fever Eyes: Negative for event change of vision ENT: Negative for epistaxis, nasal discharge, sore throat, or deafness Cardiovascular: Negative for chest pain, palpitations, dizziness, diaphoresis Respiratory: Negative for new shortness of breath,hemoptysis, or purulent cough Gastrointestinal: Negative for diarrhea, hematemesis, melena, nausea, vomiting , or dyspepsia Integumentary (skin): Negative for rash or jaundice discoloration Genitourinary: Negative for urinary frequency, hematuria, or dysuria Neurological: Negative for weakness, seizure activity, headache, or dizziness Lymphatic/Hematologic: Negative for petechiae, bleeding or new adenopathy Musculoskeletal: Negative for new joint or back pain Allergic/Immunologic: Negative for unusual rash or pruritis. Physical Exam Date Time Temp Pulse Resp B/P (MAP) Pulse Ox O2 Delivery O2 Flow Rate FiO2 03/13/17 14:00 37.8 90 18 106/67 (80) 99 Room Air 03/13/17 10:59 37.4 84 18 102/64 94 03/13/17 10:10 38.3 73 18 115/69 03/13/17 09:40 37.3 66 16 118/75 97 03/13/17 09:10 37.7 70 16 114/70 03/13/17 08:55 38.2 71 18 120/77 03/13/17 08:35 37.9 62 16 120/68 03/13/17 08:00 Room Air 03/13/17 07:50 37.4 68 18 114/70 (85) 97 Room Air 03/13/17 06:45 37.2 64 16 111/66 (81) 99 Room Air 03/13/17 05:45 37.1 59 16 111/67 (82) 99 Room Air 03/13/17 05:28 36.8 70 16 101/58 (72) 98 Room Air 03/13/17 05:15 37.4 72 16 101/62 (75) 98 Room Air 03/13/17 04:45 37.1 65 16 105/60 97 03/13/17 02:55 68 24 109/54 96 03/13/17 02:46 67 23 96 03/13/17 02:35 36.8 76 20 107/62 96 Room Air 03/13/17 02:31 77 28 96 03/13/17 02:16 87 21 96 03/13/17 02:01 85 18 97 03/13/17 01:46 85 22 98 03/13/17 01:16 83 24 98 03/13/17 01:12 37.2 03/13/17 01:11 83 21 99 03/13/17 01:01 118/71 03/13/17 00:56 85 30 99 03/13/17 00:53 Room Air 03/13/17 00:41 85 20 99 03/13/17 00:31 114/64 03/13/17 00:26 83 20 99 Room Air 03/13/17 00:18 84 03/13/17 00:17 124/66 03/12/17 22:41 39.3 102 18 111/62 95 Room Air Constitutional: vitals are stable. Alopecic young man Eyes: Eyes are BEBO EOMI without conjuctival erythema or icterus. ENT: External examination was negative for masses. Neck: Negative for masses or palpable thyromegaly Respiratory: Lung sounds were generally clear bilaterally Cardiovascular: Heart was RRR without significant murmur, gallops aoe rubs Gastrointestinal: No palpable hepatic or splenomegaly. The abdomen was soft with normal bowel sounds. Lymphatic system: there was no palpable peripheral lymphadenopathy Musculoskeletal System: The musculoskeletal system seemed concordant with age. Skin: The skin was negative for jaundice. Neurologic exam: The exam was negative for any focal findings. Deep tendon reflexes were equal and symmetrical. Psychiatric exam: Was essentially negative with normal mood and effect. Extremities: Negative for edema erythema Laboratory Results Last 24 Hours Test 03/12/17 23:48 03/12/17 23:50 03/12/17 23:55 03/13/17 00:15 Bedside Lactic Acid Venous 0.92 mmol/L Urine Color YELLOW Urine Appearance CLEAR Urine pH 6.0 Urine Specific Gilby 1.014 Urine Protein NEG Urine Glucose (UA) NEG Urine Ketones NEG Urine Occult Blood NEG Urine Nitrite NEG Urine Bilirubin NEG Urine Urobilinogen NEG Urine Leukocyte Esterase NEG Urine WBC (Auto) 1-5 /hpf Urine RBC (Auto) 0-4 /hpf Urine Hyaline Casts (Auto) 1-5 /lpf Urine Epithelial Cells (Auto) 10-20 /lpf Urine Bacteria (Auto) NEG White Blood Count 0.12 K/uL Red Blood Count 2.19 M/uL Hemoglobin 6.2 g/dL Hematocrit 18.7 % Mean Corpuscular Volume 85.4 fL Mean Corpuscular Hemoglobin 28.3 pg Mean Corpuscular Hemoglobin Concent 33.2 g/dl Platelet Count 53 K/uL Mean Platelet Volume 10.0 fL RDW Standard Deviation 54.9 fL RDW Coefficient of Variation 17.5 % Neutrophils % (Manual) % Lymphocytes % (Manual) % Lymphocytes # (Manual) K/uL Total Absolute Lymphocytes K/uL Prothrombin Time 12.0 SECONDS Prothromb Time International Ratio 1.1 Activated Partial Thromboplast Time 41.8 SECONDS Partial Thromboplastin Ratio 1.6 Sodium Level 134 mmol/L Potassium Level 3.8 mmol/L Chloride Level 97 mmol/L Carbon Dioxide Level 28 mmol/L Anion Gap 9.0 mmol/L Blood Urea Nitrogen 22 mg/dl Creatinine 1.44 mg/dl Est Creatinine Clear Calc Drug Dose 81.7 ml/min Estimated GFR () 72.9 Estimated GFR (Non- 62.9 BUN/Creatinine Ratio 15.1 Random Glucose 97 mg/dl Calcium Level 7.9 mg/dl Magnesium Level 1.3 mg/dl Total Bilirubin 0.4 mg/dl Aspartate Amino Transf (AST/SGOT) 7 U/L Alanine Aminotransferase (ALT/SGPT) 15 U/L Alkaline Phosphatase 74 U/L Troponin I < 0.015 ng/ml Total Protein 5.5 gm/dl Albumin 2.6 gm/dl Globulin 2.9 gm/dl Albumin/Globulin Ratio 0.9 Procalcitonin 0.22 ng/ml Influenza Type A (RT-PCR) Neg for Influ A Influenza Type A Antigen Neg for Influ A Influenza Type B Antigen Neg for Influ B Influenza Type B (RT-PCR) Neg for Influ B Assessment & Plan Refractory aggressive non-Hodgkin's lymphoma. The patient is status post multiple courses of therapy in the past. His most recent treatment occurred about 12 days ago and was the program Rituxan followed by JANEEN NORRIS. He has been supported with Neulasta presents with severe cytopenias. He will be supported with blood/platelet transfusions as needed. Cultures are pending. We will follow along with you
[2017-03-13] MEDS ORDERED: METHADONE HCL 10 MG TAB PO SCH (16:00)
[2017-03-13] MEDS: GABAPENTIN 800 MG TAB PO SCH ×2 (16:13→23:29)
[2017-03-13] MEDS ORDERED: NURSING VERBAL MED ORDER ONE (16:30)
[2017-03-13] MEDS: ACETAMINOPHEN 325 MG TAB PO PRN (16:35)
[2017-03-13] MEDS ORDERED: FILGRASTIM 480 MCG/1.6 ML VIAL SC SCH (20:00)
--- NOTE | 2017-03-13 20:27 | Progress Note ---
Progress Note Date of Service Mar 13, 2017. Progress Note Paged by RN, pt had been discussing his case with his Oncologist through [facility] who recommended providing a dose of Caspofungin at this stage. Discussed with Dr. Neri, we will provide one dose tonight and further doses at discretion of primary team. Also recommend evaluation for removal of his port and culture of the tip, then replacing for further chemo therapy.
[2017-03-13] MEDS ORDERED: CASPOFUNGIN INJ 70 MG in SODIUM CHLORIDE 0.9% 250ML 250 ML IV SCH (21:00)
[2017-03-13] MEDS: LORAZEPAM 1 MG TAB PO SCH (22:08)
[2017-03-14] VITALS (7 sets, daily range): BP systolic 82–98; BP diastolic 47–64; PULSE 68–93; TEMP 36.4–37.9; O2SAT 96–100
[2017-03-14] MEDS: ACETAMINOPHEN 325 MG TAB PO PRN (05:41)
[2017-03-14 06:49] LABS: HEMATOCRIT 23.8 % (42-52); MEAN CELL VOLUME 84.4 fL (80-100); MEAN CORPUSCULAR HEMOGLOBIN 27.3 pg (25-34); MEAN CORPUSCULAR HGB CONC 32.4 g/dl (32-36); MEAN PLATELET VOLUME 10.2 fL (7.4-10.4); PLATELET COUNT 44 K/uL (130-400); RED BLOOD COUNT 2.82 M/uL (4.7-6.1); WHITE BLOOD COUNT 0.04 K/uL (4.8-10.8)
[2017-03-14 07:09] LABS: BUN/CREATININE RATIO 15.7 (10-20); CALCIUM 8.2 mg/dl (8.5-10.1); CREATININE 1.33 mg/dl (0.60-1.40); POTASSIUM 3.8 mmol/L (3.5-5.1)
[2017-03-14] MEDS: GABAPENTIN 800 MG TAB PO SCH ×3 (08:10→23:30)
[2017-03-14] MEDS: ESCITALOPRAM OXALATE 20 MG TAB PO SCH (08:11)
[2017-03-14] MEDS: DOCUSATE SODIUM 100 MG CAP PO SCH ×2 (08:11→20:45)
[2017-03-14] MEDS: ALLOPURINOL 300 MG TAB PO SCH (08:11)
[2017-03-14] MEDS: CETIRIZINE HCL 10 MG TAB PO SCH (08:11)
[2017-03-14] MEDS: ACYCLOVIR 400 MG TAB PO SCH ×2 (08:11→20:45)
[2017-03-14] MEDS: SENNA 8.6 MG TAB PO SCH ×2 (08:12→20:46)
[2017-03-14] MEDS: CEFEPIME IV 1,000 MG in SYRINGE 0 ML IV SCH ×4 (08:12→23:31)
[2017-03-14 08:14] LABS: COMPLETE YES
[2017-03-14] MEDS: DEXLANSOPRAZOLE 60 MG CAPDR PO SCH (08:14)
[2017-03-14] MEDS: BOOST PLUS VANILLA PO SCH ×6 (08:14→20:00)
[2017-03-14] MEDS: POTASSIUM CHLORIDE 20 MEQ TABCR PO SCH ×2 (08:15→17:19)
[2017-03-14] MEDS: DRONABINOL 2.5 MG CAP PO SCH ×4 (08:24→17:18)
[2017-03-14] MEDS: METHADONE HCL 10 MG TAB PO SCH ×3 (08:24→23:30)
--- NOTE | 2017-03-14 12:10 | Hematology/Oncology Prog Note ---
Hematology/Onc Progress Note Date of Service Mar 14, 2017. Diagnoses Pancytopenia secondary to therapy Refractory B-cell lymphoma Neutropenic fever Medications Medications Administered Medications (Trade) Dose Ordered Sig/Sidney Route Start Time Stop Time Status Last Admin Dose Admin Sodium Chloride 1,000 ml @ 999 mls/hr Q1H1M STAT IV 03/12/17 22:55 03/12/17 23:55 DC 03/13/17 00:07 999 MLS/HR Sodium Chloride 1,000 ml @ 125 mls/hr Q8H STAT IV 03/12/17 22:55 03/13/17 02:31 DC 03/13/17 00:07 125 MLS/HR Acetaminophen (Tylenol Tab) 1,000 mg NOW STAT PO 03/12/17 22:55 03/12/17 22:58 DC 03/13/17 00:02 1,000 MG Levofloxacin (Levaquin / D5W) 750 mg NOW STAT IV 03/12/17 23:20 03/12/17 23:22 DC 03/13/17 00:08 750 MG Cefepime HCl 1000 mg/Syringe 11 ml @ 5.5 mls/min ONE STAT IV 03/12/17 22:51 03/13/17 00:27 DC 03/13/17 00:53 5.5 MLS/MIN Acyclovir (Zovirax Tab) 400 mg NOW STAT PO 03/13/17 00:50 03/13/17 00:52 DC 03/13/17 02:05 400 MG Methadone HCl (Dolophine Tab) 15 mg NOW STAT PO 03/13/17 00:50 03/13/17 00:52 DC 03/13/17 02:05 15 MG Gabapentin (Neurontin Tab) 800 mg NOW STAT PO 03/13/17 00:50 03/13/17 00:52 DC 03/13/17 02:05 800 MG Acetaminophen (Tylenol Tab) 650 mg Q4H PRN PO 03/13/17 02:15 04/12/17 02:14 03/14/17 05:41 650 MG Acyclovir (Zovirax Tab) 800 mg BID PO 03/13/17 08:00 04/12/17 08:59 03/14/17 08:11 800 MG Allopurinol (Zyloprim Tab) 300 mg DAILY PO 03/13/17 08:00 04/12/17 08:59 03/14/17 08:11 300 MG Bisacodyl (Dulcolax Tab) 10 mg HS PRN PO 03/13/17 02:15 04/12/17 02:14 03/13/17 22:16 10 MG Docusate Sodium (coLACE CAP) 100 mg QAM PO 03/13/17 08:00 04/12/17 08:59 03/14/17 08:11 100 MG Docusate Sodium (coLACE CAP) 200 mg HS PO 03/13/17 21:00 04/12/17 20:59 03/13/17 22:07 200 MG Dronabinol (Marinol Cap) 2.5 mg TIDM PO 03/13/17 08:00 04/12/17 07:59 03/14/17 08:24 2.5 MG Escitalopram Oxalate (Lexapro Tab) 20 mg QAM PO 03/13/17 08:00 04/12/17 08:59 03/14/17 08:11 20 MG Gabapentin (Neurontin Tab) 800 mg TID PO 03/13/17 08:00 03/13/17 14:51 DC 03/13/17 08:05 800 MG Lorazepam (Ativan Tab) 1 mg HS PO 03/13/17 21:00 04/12/17 20:59 03/13/17 22:08 1 MG Methadone HCl (Dolophine Tab) 20 mg Q8 PO 03/13/17 06:00 03/13/17 14:49 DC 03/13/17 08:18 20 MG Senna (Senokot Tab) 17.2 mg AMHS PO 03/13/17 08:00 04/12/17 08:59 03/14/17 08:12 17.2 MG Trimethoprim/ Sulfamethoxazole (Septra Ds 800/ 160MG Tab) 1 tab MoWeFr@0900 PO 03/13/17 09:00 04/12/17 08:59 03/13/17 08:06 1 TAB Cetirizine HCl (zyrTEC TAB) 10 mg DAILY PO 03/13/17 08:00 04/12/17 08:59 03/14/17 08:11 10 MG Dexlansoprazole (Dexilant Dr) 60 mg DAILY PO 03/13/17 08:00 04/12/17 07:59 03/14/17 08:14 60 MG Potassium Chloride (Klor-Con Tab) 20 meq BID17 PO 03/13/17 09:00 04/12/17 08:59 03/14/17 08:15 20 MEQ Venetoclax (Venclexta) 1,200 mg DAILY@1500 PO 03/13/17 15:00 04/12/17 14:59 03/13/17 14:58 1,200 MG Cefepime HCl 1000 mg/Syringe 11 ml @ 5.5 mls/min Q8H IV 03/13/17 08:00 03/15/17 07:59 03/14/17 09:21 5.5 MLS/MIN Magnesium Chloride (Slow-Mag Tab) 64 mg NOW STAT PO 03/13/17 02:33 03/13/17 02:54 DC 03/13/17 03:34 64 MG Heparin Sodium (Porcine) (Heparin 10 Unit/ ml 5 ml Flush) 5 ml STK-MED ONCE .ROUTE 03/13/17 03:46 03/13/17 03:47 DC 03/13/17 04:20 5 ML Heparin Sodium (Porcine) (Heparin 100 Unit/ml 5ml Flush) 5 ml PRN PRN IV 03/13/17 07:45 04/12/17 07:44 03/14/17 09:20 5 ML Enteral Nutritional Formula (Boost Plus Vanilla) 1 can TID PO 03/13/17 14:00 04/12/17 13:59 03/14/17 08:14 1 CAN Methadone HCl (Dolophine Tab) 20 mg Q8@0000,0800,1600 PO 03/13/17 16:00 03/13/17 16:35 DC 03/13/17 16:13 20 MG Gabapentin (Neurontin Tab) 800 mg Q8@0000,0800,1600 PO 03/13/17 16:00 04/12/17 15:59 03/14/17 08:10 800 MG Methadone HCl (Dolophine Tab) 15 mg Q8@0000,0800,1600 PO 03/13/17 17:00 03/27/17 16:59 03/14/17 08:24 15 MG Filgrastim (Neupogen Sq) 480 mcg TODAY@1999 [place] 03/13/17 20:00 11/22/17 23:59 DC 03/13/17 22:16 480 MCG Caspofungin 70 mg/ Sodium Chloride 260 ml @ 260 mls/hr 2100 IV 03/13/17 21:00 03/13/17 21:59 DC 03/13/17 22:08 260 MLS/HR Subjective He seems a bit more somnolent this morning. He is alert however after further conversation. He has had intermittent fevers. He remains cytopenic. He denies any new pain shortness of breath or abdominal pain. Review of Systems: Constitutional: Negative for night sweats Eyes: Negative for event change of vision ENT: Negative for epistaxis, nasal discharge, sore throat, or deafness Cardiovascular: Negative for chest pain, palpitations, dizziness, diaphoresis Respiratory: Negative for new shortness of breath,hemoptysis, or purulent cough Gastrointestinal: Negative for diarrhea, hematemesis, melena, nausea, vomiting , or dyspepsia Integumentary (skin): Negative for rash or jaundice discoloration Genitourinary: Negative for urinary frequency, hematuria, or dysuria Neurological: Negative for weakness, seizure activity, headache, or dizziness Lymphatic/Hematologic: Negative for petechiae, bleeding or new adenopathy Musculoskeletal: Negative for new joint or back pain Allergic/Immunologic: Negative for unusual rash or pruritis. Vital Signs Vital Signs Past 12 Hours Date Time Temp Pulse Resp B/P (MAP) Pulse Ox O2 Delivery O2 Flow Rate FiO2 03/14/17 11:21 36.4 73 18 82/49 (60) 96 03/14/17 07:29 37.3 68 18 92/47 (62) 96 03/14/17 05:37 37.9 93 18 95/58 (70) 97 Room Air Physical Exam Constitutional: vitals are stable. Pleasant alopecic young man. His was in the room today. Eyes: Eyes are BEBO EOMI without conjuctival erythema or icterus. ENT: External examination was negative for masses. Neck: Negative for masses or palpable thyromegaly Respiratory: Lung sounds were generally clear bilaterally Cardiovascular: Heart was RRR without significant murmur, gallops aoe rubs Gastrointestinal: No palpable hepatic or splenomegaly. The abdomen was soft with normal bowel sounds. Lymphatic system: there was no palpable peripheral lymphadenopathy Musculoskeletal System: The musculoskeletal system seemed concordant with age. Skin: The skin was negative for jaundice. Neurologic exam: The exam was negative for any focal findings. Deep tendon reflexes were equal and symmetrical. Psychiatric exam: Was essentially negative with normal mood and effect. Extremities: Negative for edema Laboratory Last 24 Hours Test 03/14/17 05:25 White Blood Count 0.04 K/uL Red Blood Count 2.82 M/uL Hemoglobin 7.7 g/dL Hematocrit 23.8 % Mean Corpuscular Volume 84.4 fL Mean Corpuscular Hemoglobin 27.3 pg Mean Corpuscular Hemoglobin Concent 32.4 g/dl Platelet Count 44 K/uL Mean Platelet Volume 10.2 fL RDW Standard Deviation 54.6 fL RDW Coefficient of Variation 17.5 % Neutrophils % (Manual) % Lymphocytes % (Manual) 100.0 % Neutrophils # (Manual) K/uL Total Absolute Neutrophils K/uL Lymphocytes # (Manual) 0.04 K/uL Total Absolute Lymphocytes 0.04 K/uL Red Blood Cell Morphology Unremarkable Sodium Level 132 mmol/L Potassium Level 3.8 mmol/L Chloride Level 99 mmol/L Carbon Dioxide Level 26 mmol/L Anion Gap 7.0 mmol/L Blood Urea Nitrogen 21 mg/dl Creatinine 1.33 mg/dl Est Creatinine Clear Calc Drug Dose 88.4 ml/min Estimated GFR () 80.3 Estimated GFR (Non- 69.3 BUN/Creatinine Ratio 15.7 Random Glucose 107 mg/dl Calcium Level 8.2 mg/dl Assessment & Plan Pancytopenia secondary to recent R-EPOCH therapy. He had received Neulasta in our clinic on the . I have asked him to no longer take the Venetoclax since this drug may contribute to the neutropenia as well as fevers. Supportive care continues. I reviewed his blood work with he and his today. Cultures blood cultures are negative. Unfortunately it will be predictably at least 3-5 more days before his blood counts begin to recover. He will need support along the way with a irradiated blood product support to try to keep his hemoglobin above 8 g/dL and platelets above 20,000. Update: I did speak with his physician at [facility] Dr. Camilla Sosa [phone] and reviewed with him Mr. Reyes's current condition. Dr. Sosa would like the Venetoclax to continue however. We agreed though that if his blood counts remain this low in 4-5 days that this drug should then be placed on hold. He feels that the patient is having a "total body response" and did not want to interrupt the Venetoclax at this time. This was reviewed then with the patient as well as the nursing staff and the drug will continue for now
--- NOTE | 2017-03-14 15:29 | Family Medicine Progress Note ---
Progress Note Date of Service Mar 14, 2017. Subjective Pt evaluation today including: conversation w/ patient, conversation w/ family , physical exam, chart review, lab review, review of studies Pain: No pain reported this morning Voiding: no voiding problems, no incontinence Constitutional: + fever, + fatigue, No chills Respiratory: + cough, + sputum, No wheezing, No shortness of breath Cardiovascular: No chest pain, No palpitations Abdomen: No pain, No nausea, No vomiting, No diarrhea, No constipation Neurologic: No weakness, No numbness/tingling, No vertigo Medications Current Inpatient Medications Medications (Trade) Dose Ordered Sig/Sidney Route Start Time Stop Time Status Last Admin Dose Admin Acetaminophen (Tylenol Tab) 650 mg Q4H PRN PO 03/13/17 02:15 04/12/17 02:14 03/14/17 05:41 650 MG Al Hydrox/Mg Hydrox/Simethicone (Maalox Max Susp) 15 ml Q4H PRN PO 03/13/17 02:15 04/12/17 02:14 Magnesium Hydroxide (Milk Of Magnesia Susp) 30 ml Q6H PRN PO 03/13/17 02:15 04/12/17 02:14 Polyethylene (Miralax Powder Packet) 17 gm DAILY PRN PO 03/13/17 02:15 04/12/17 02:14 Ondansetron HCl (Zofran Inj) 4 mg Q6H PRN IV 03/13/17 02:15 04/12/17 02:14 Acyclovir (Zovirax Tab) 800 mg BID PO 03/13/17 08:00 04/12/17 08:59 03/14/17 08:11 800 MG Allopurinol (Zyloprim Tab) 300 mg DAILY PO 03/13/17 08:00 04/12/17 08:59 03/14/17 08:11 300 MG Bisacodyl (Dulcolax Tab) 10 mg HS PRN PO 03/13/17 02:15 04/12/17 02:14 03/13/17 22:16 10 MG Docusate Sodium (coLACE CAP) 100 mg QAM PO 03/13/17 08:00 04/12/17 08:59 03/14/17 08:11 100 MG Docusate Sodium (coLACE CAP) 200 mg HS PO 03/13/17 21:00 04/12/17 20:59 03/13/17 22:07 200 MG Dronabinol (Marinol Cap) 2.5 mg TIDM PO 03/13/17 08:00 04/12/17 07:59 03/14/17 13:52 2.5 MG Escitalopram Oxalate (Lexapro Tab) 20 mg QAM PO 03/13/17 08:00 04/12/17 08:59 03/14/17 08:11 20 MG Lorazepam (Ativan Tab) 1 mg HS PO 03/13/17 21:00 04/12/17 20:59 03/13/17 22:08 1 MG Oxycodone HCl (Roxicodone Immediate Rel Tab) 10 mg Q4 PRN PO 03/13/17 02:15 03/27/17 02:14 Senna (Senokot Tab) 17.2 mg AMHS PO 03/13/17 08:00 04/12/17 08:59 03/14/17 08:12 17.2 MG Trimethoprim/ Sulfamethoxazole (Septra Ds 800/ 160MG Tab) 1 tab MoWeFr@0900 PO 03/13/17 09:00 04/12/17 08:59 03/13/17 08:06 1 TAB Cetirizine HCl (zyrTEC TAB) 10 mg DAILY PO 03/13/17 08:00 04/12/17 08:59 03/14/17 08:11 10 MG Dexlansoprazole (Dexilant Dr) 30 mg HS PRN PO 03/13/17 02:15 04/12/17 02:14 Dexlansoprazole (Dexilant Dr) 60 mg DAILY PO 03/13/17 08:00 04/12/17 07:59 03/14/17 08:14 60 MG Potassium Chloride (Klor-Con Tab) 20 meq BID17 PO 03/13/17 09:00 04/12/17 08:59 03/14/17 08:15 20 MEQ Venetoclax (Venclexta) 1,200 mg DAILY@1500 PO 03/13/17 15:00 04/12/17 14:59 03/13/17 14:58 1,200 MG Cefepime HCl 1000 mg/Syringe 11 ml @ 5.5 mls/min Q8H IV 03/13/17 08:00 03/15/17 07:59 03/14/17 09:21 5.5 MLS/MIN Lidocaine HCl/ Diphenhydramine HCl/Al Hydroxide/ Mg Hydroxide/ Glycerin/Barcode Q4H PRN MT 03/13/17 03:45 04/12/17 03:44 Heparin Sodium (Porcine) (Heparin 100 Unit/ml 5ml Flush) 5 ml PRN PRN IV 03/13/17 07:45 04/12/17 07:44 03/14/17 09:20 5 ML Enteral Nutritional Formula (Boost Plus Vanilla) 1 can TID PO 03/13/17 14:00 04/12/17 13:59 03/14/17 13:52 1 CAN Gabapentin (Neurontin Tab) 800 mg Q8@0000,0800,1600 PO 03/13/17 16:00 04/12/17 15:59 03/14/17 08:10 800 MG Methadone HCl (Dolophine Tab) 15 mg Q8@0000,0800,1600 PO 03/13/17 17:00 03/27/17 16:59 03/14/17 08:24 15 MG Miscellaneous Information (Pending Order) 1 ea DAILY@10 N/A 03/14/17 10:00 04/13/17 09:59 Objective Vital Signs Date Time Temp Pulse Resp B/P (MAP) Pulse Ox O2 Delivery O2 Flow Rate FiO2 03/14/17 11:21 36.4 73 18 82/49 (60) 96 03/14/17 08:30 96 Room Air 03/14/17 07:29 37.3 68 18 92/47 (62) 96 03/14/17 05:37 37.9 93 18 95/58 (70) 97 Room Air 03/14/17 00:00 Room Air 03/13/17 23:14 36.8 62 18 106/64 (78) 100 Room Air 03/13/17 16:34 38.6 03/13/17 16:01 37.2 81 18 107/65 (79) 100 Room Air 03/13/17 16:00 Room Air Physical Exam General Appearance: WD/WN, no apparent distress Eyes: normal inspection, sclerae normal Respiratory/Chest: chest non-tender, lungs clear, normal breath sounds Cardiovascular: regular rate, rhythm, no edema, no gallop Abdomen: normal bowel sounds, non tender, soft Neurologic/Psychiatric: knowledge management consultant II-XII nml as tested, alert, normal mood/affect, oriented x 3 Laboratory Results Results Past 24 Hours Test 03/14/17 05:25 Range/Units White Blood Count 0.04 4.8-10.8 K/uL Red Blood Count 2.82 4.7-6.1 M/uL Hemoglobin 7.7 14.0-18.0 g/dL Hematocrit 23.8 42-52 % Mean Corpuscular Volume 84.4 80-100 fL Mean Corpuscular Hemoglobin 27.3 25-34 pg Mean Corpuscular Hemoglobin Concent 32.4 32-36 g/dl Platelet Count 44 130-400 K/uL Mean Platelet Volume 10.2 7.4-10.4 fL RDW Standard Deviation 54.6 36.4-46.3 fL RDW Coefficient of Variation 17.5 11.5-14.5 % Neutrophils % (Manual) % Lymphocytes % (Manual) 100.0 % Neutrophils # (Manual) 1.4-6.5 K/uL Total Absolute Neutrophils 1.4-6.5 K/uL Lymphocytes # (Manual) 0.04 1.2-3.4 K/uL Total Absolute Lymphocytes 0.04 1.2-3.4 K/uL Red Blood Cell Morphology Unremarkable Sodium Level 132 136-145 mmol/L Potassium Level 3.8 3.5-5.1 mmol/L Chloride Level 99 98-107 mmol/L Carbon Dioxide Level 26 21-32 mmol/L Anion Gap 7.0 3-11 mmol/L Blood Urea Nitrogen 21 7-18 mg/dl Creatinine 1.33 0.60-1.40 mg/dl Est Creatinine Clear Calc Drug Dose 88.4 ml/min Estimated GFR () 80.3 Estimated GFR (Non- 69.3 BUN/Creatinine Ratio 15.7 10-20 Random Glucose 107 70-99 mg/dl Calcium Level 8.2 8.5-10.1 mg/dl Assessment and Plan 32 yo M with diffuse recurrent B cell lymphoma, with neutropenic fever Neutropenic fever - WBC decreased from 0.12 to 0.04 - Infection either 2/2 tumor burden, chemo, or underlying bacterial infection - Neutropenic contact precautions - Dose of Neupogen received yesterday - Cefepime + Caspofungin for empiric treatment - Discussed current condition with Oncologist Dr. Sosa at [facility], agreed with current treatment and plan - Blood Cultures obtained - Preliminarily negative - If blood culture positive discussed removing port and culturing the tip - ID consult - continue with current antibiotics - Tylenol for fever Acute anemia s/p transfusion of 2 units irradiated PRBC's - Hgb improved to 7.7 - Repeat labs in AM B cell Lymphoma - Continue current chemo regime and pain regime (Methadone with Oxy IR) - Oncology consulted Anxiety / Insomnia - Ativan 1mg PO qHS, give at least 30 min or so after his methadone Opioid-induced constipation - Restart his Senna from home - Miralax / Lactulose PRN Admitted to 4E Full Code SCDs Resident Tracking Resident Involvement: Resident Care Provided Care Provided: Adult Hospital Medicine
[2017-03-14] MEDS: VENETOCLAX 100 MG TAB PO SCH (17:14)
[2017-03-14] MEDS: LORAZEPAM 1 MG TAB PO SCH (20:44)
[2017-03-14] MEDS ORDERED: CASPOFUNGIN INJ 70 MG in SODIUM CHLORIDE 0.9% 250ML 250 ML IV SCH (21:00)
[2017-03-14] MEDS: CASPOFUNGIN INJ 50 MG in SODIUM CHLORIDE 0.9% 250ML 250 ML IV SCH (22:01)
[2017-03-15] VITALS (15 sets, daily range): BP systolic 89–132; BP diastolic 54–73; PULSE 62–90; TEMP 36.3–37.3; O2SAT 94–100
[2017-03-15 06:40] LABS: HEMATOCRIT 22.2 % (42-52); MEAN CELL VOLUME 84.4 fL (80-100); MEAN CORPUSCULAR HEMOGLOBIN 28.9 pg (25-34); MEAN CORPUSCULAR HGB CONC 34.2 g/dl (32-36); MEAN PLATELET VOLUME 9.7 fL (7.4-10.4); PLATELET COUNT 64 K/uL (130-400); RED BLOOD COUNT 2.63 M/uL (4.7-6.1)
[2017-03-15 07:04] LABS: CREATININE 1.53 mg/dl (0.60-1.40); POTASSIUM 4.5 mmol/L (3.5-5.1)
[2017-03-15 07:05] LABS: ANISOCYTOSIS PRESENT
[2017-03-15 07:31] LABS: COMPLETE YES
[2017-03-15] MEDS: DOCUSATE SODIUM 100 MG CAP PO SCH ×2 (08:27→21:56)
[2017-03-15] MEDS: GABAPENTIN 800 MG TAB PO SCH ×2 (08:28→16:33)
[2017-03-15] MEDS: METHADONE HCL 10 MG TAB PO SCH ×2 (08:28→16:32)
[2017-03-15] MEDS: ESCITALOPRAM OXALATE 20 MG TAB PO SCH (08:28)
[2017-03-15] MEDS: DRONABINOL 2.5 MG CAP PO SCH ×3 (08:28→16:31)
[2017-03-15] MEDS: SENNA 8.6 MG TAB PO SCH ×2 (08:29→21:57)
[2017-03-15] MEDS: CETIRIZINE HCL 10 MG TAB PO SCH (08:29)
[2017-03-15] MEDS: SULFAMETHOXAZOLE/TRIMETHOPRIM DS 800/160MG TAB PO SCH (08:29)
[2017-03-15] MEDS: POTASSIUM CHLORIDE 20 MEQ TABCR PO SCH ×2 (08:29→16:33)
[2017-03-15] MEDS: ALLOPURINOL 300 MG TAB PO SCH (08:29)
[2017-03-15] MEDS: ACYCLOVIR 400 MG TAB PO SCH ×2 (08:29→21:58)
[2017-03-15] MEDS: DEXLANSOPRAZOLE 60 MG CAPDR PO SCH (08:31)
[2017-03-15] MEDS: BOOST PLUS VANILLA PO SCH ×6 (08:31→20:00)
[2017-03-15] MEDS ORDERED: CEFEPIME IV 1,000 MG in DEXTROSE 5% 100ML 100 ML IV SCH (10:45)
--- NOTE | 2017-03-15 10:51 | Hematology/Oncology Prog Note ---
Hematology/Onc Progress Note Date of Service Mar 15, 2017. Diagnoses Pancytopenia secondary to therapy Refractory B-cell lymphoma Neutropenic fever Medications Medications Administered Medications (Trade) Dose Ordered Sig/Sidney Route Start Time Stop Time Status Last Admin Dose Admin Sodium Chloride 1,000 ml @ 999 mls/hr Q1H1M STAT IV 03/12/17 22:55 03/12/17 23:55 DC 03/13/17 00:07 999 MLS/HR Sodium Chloride 1,000 ml @ 125 mls/hr Q8H STAT IV 03/12/17 22:55 03/13/17 02:31 DC 03/13/17 00:07 125 MLS/HR Acetaminophen (Tylenol Tab) 1,000 mg NOW STAT PO 03/12/17 22:55 03/12/17 22:58 DC 03/13/17 00:02 1,000 MG Levofloxacin (Levaquin / D5W) 750 mg NOW STAT IV 03/12/17 23:20 03/12/17 23:22 DC 03/13/17 00:08 750 MG Cefepime HCl 1000 mg/Syringe 11 ml @ 5.5 mls/min ONE STAT IV 03/12/17 22:51 03/13/17 00:27 DC 03/13/17 00:53 5.5 MLS/MIN Acyclovir (Zovirax Tab) 400 mg NOW STAT PO 03/13/17 00:50 03/13/17 00:52 DC 03/13/17 02:05 400 MG Methadone HCl (Dolophine Tab) 15 mg NOW STAT PO 03/13/17 00:50 03/13/17 00:52 DC 03/13/17 02:05 15 MG Gabapentin (Neurontin Tab) 800 mg NOW STAT PO 03/13/17 00:50 03/13/17 00:52 DC 03/13/17 02:05 800 MG Acetaminophen (Tylenol Tab) 650 mg Q4H PRN PO 03/13/17 02:15 04/12/17 02:14 03/14/17 05:41 650 MG Acyclovir (Zovirax Tab) 800 mg BID PO 03/13/17 08:00 04/12/17 08:59 03/15/17 08:29 800 MG Allopurinol (Zyloprim Tab) 300 mg DAILY PO 03/13/17 08:00 04/12/17 08:59 03/15/17 08:29 300 MG Bisacodyl (Dulcolax Tab) 10 mg HS PRN PO 03/13/17 02:15 04/12/17 02:14 03/13/17 22:16 10 MG Docusate Sodium (coLACE CAP) 100 mg QAM PO 03/13/17 08:00 04/12/17 08:59 03/15/17 08:27 100 MG Docusate Sodium (coLACE CAP) 200 mg HS PO 03/13/17 21:00 04/12/17 20:59 03/14/17 20:45 200 MG Dronabinol (Marinol Cap) 2.5 mg TIDM PO 03/13/17 08:00 04/12/17 07:59 03/15/17 08:28 2.5 MG Escitalopram Oxalate (Lexapro Tab) 20 mg QAM PO 03/13/17 08:00 04/12/17 08:59 03/15/17 08:28 20 MG Gabapentin (Neurontin Tab) 800 mg TID PO 03/13/17 08:00 03/13/17 14:51 DC 03/13/17 08:05 800 MG Lorazepam (Ativan Tab) 1 mg HS PO 03/13/17 21:00 04/12/17 20:59 03/14/17 20:44 1 MG Methadone HCl (Dolophine Tab) 20 mg Q8 PO 03/13/17 06:00 03/13/17 14:49 DC 03/13/17 08:18 20 MG Senna (Senokot Tab) 17.2 mg AMHS PO 03/13/17 08:00 04/12/17 08:59 03/15/17 08:29 17.2 MG Trimethoprim/ Sulfamethoxazole (Septra Ds 800/ 160MG Tab) 1 tab MoWeFr@0900 PO 03/13/17 09:00 04/12/17 08:59 03/15/17 08:29 1 TAB Cetirizine HCl (zyrTEC TAB) 10 mg DAILY PO 03/13/17 08:00 04/12/17 08:59 03/15/17 08:29 10 MG Dexlansoprazole (Dexilant Dr) 60 mg DAILY PO 03/13/17 08:00 04/12/17 07:59 03/15/17 08:31 60 MG Potassium Chloride (Klor-Con Tab) 20 meq BID17 PO 03/13/17 09:00 04/12/17 08:59 03/15/17 08:29 20 MEQ Venetoclax (Venclexta) 1,200 mg DAILY@1500 PO 03/13/17 15:00 04/12/17 14:59 03/14/17 17:14 1,200 MG Cefepime HCl 1000 mg/Syringe 11 ml @ 5.5 mls/min Q8H IV 03/13/17 08:00 03/15/17 07:59 DC 03/14/17 23:31 5.5 MLS/MIN Magnesium Chloride (Slow-Mag Tab) 64 mg NOW STAT PO 03/13/17 02:33 03/13/17 02:54 DC 03/13/17 03:34 64 MG Heparin Sodium (Porcine) (Heparin 10 Unit/ ml 5 ml Flush) 5 ml STK-MED ONCE .ROUTE 03/13/17 03:46 03/13/17 03:47 DC 03/13/17 04:20 5 ML Heparin Sodium (Porcine) (Heparin 100 Unit/ml 5ml Flush) 5 ml PRN PRN IV 03/13/17 07:45 04/12/17 07:44 03/15/17 05:21 5 ML Enteral Nutritional Formula (Boost Plus Vanilla) 1 can TID PO 03/13/17 14:00 04/12/17 13:59 03/14/17 13:52 1 CAN Methadone HCl (Dolophine Tab) 20 mg Q8@0000,0800,1600 PO 03/13/17 16:00 03/13/17 16:35 DC 03/13/17 16:13 20 MG Gabapentin (Neurontin Tab) 800 mg Q8@0000,0800,1600 PO 03/13/17 16:00 04/12/17 15:59 03/15/17 08:28 800 MG Methadone HCl (Dolophine Tab) 15 mg Q8@0000,0800,1600 PO 03/13/17 17:00 03/27/17 16:59 03/15/17 08:28 15 MG Filgrastim (Neupogen Sq) 480 mcg TODAY@2000 MT 03/13/17 20:00 03/13/17 23:59 DC 03/13/17 22:16 480 MCG Caspofungin 70 mg/ Sodium Chloride 260 ml @ 260 mls/hr 2100 IV 03/13/17 21:00 03/13/17 21:59 DC 03/13/17 22:08 260 MLS/HR Caspofungin 50 mg/ Sodium Chloride 260 ml @ 260 mls/hr DAILY@2100 IV 03/14/17 21:00 03/16/17 20:59 03/14/17 22:01 260 MLS/HR Subjective Afebrile. His mother was with him this morning. He has a stable review of system Review of Systems: Constitutional: Negative for night sweats, or fever Eyes: Negative for event change of vision ENT: Negative for epistaxis, nasal discharge, sore throat, or deafness Cardiovascular: Negative for chest pain, palpitations, dizziness, diaphoresis Respiratory: Negative for new shortness of breath,hemoptysis, or purulent cough Gastrointestinal: Negative for diarrhea, hematemesis, melena, nausea, vomiting , or dyspepsia Integumentary (skin): Negative for rash or jaundice discoloration Genitourinary: Negative for urinary frequency, hematuria, or dysuria Neurological: Negative for weakness, seizure activity, headache, or dizziness Lymphatic/Hematologic: Negative for petechiae, bleeding or new adenopathy Musculoskeletal: Negative for new joint or back pain Allergic/Immunologic: Negative for unusual rash or pruritis. Vital Signs Vital Signs Past 12 Hours Date Time Temp Pulse Resp B/P (MAP) Pulse Ox O2 Delivery O2 Flow Rate FiO2 03/15/17 07:15 36.8 62 18 97/55 (69) 95 Room Air 03/15/17 05:29 37.3 68 18 132/73 (92) 94 Room Air 03/15/17 00:15 Room Air 03/15/17 00:13 36.8 72 18 102/66 (78) 100 Room Air Physical Exam Constitutional: vitals are stable. Eyes: Eyes are BEBO EOMI without conjuctival erythema or icterus. ENT: External examination was negative for masses. Neck: Negative for masses or palpable thyromegaly Respiratory: Lung sounds were generally clear bilaterally Cardiovascular: Heart was RRR without significant murmur, gallops aoe rubs Gastrointestinal: No palpable hepatic or splenomegaly. The abdomen was soft with normal bowel sounds. Lymphatic system: there was no palpable peripheral lymphadenopathy Musculoskeletal System: The musculoskeletal system seemed concordant with age. Skin: The skin was negative for jaundice. Neurologic exam: The exam was negative for any focal findings. Deep tendon reflexes were equal and symmetrical. Psychiatric exam: Was essentially negative with normal mood and effect. Extremities: Negative for edema or erythema Laboratory Last 24 Hours Test 03/15/17 05:21 White Blood Count 0.10 K/uL Red Blood Count 2.63 M/uL Hemoglobin 7.6 g/dL Hematocrit 22.2 % Mean Corpuscular Volume 84.4 fL Mean Corpuscular Hemoglobin 28.9 pg Mean Corpuscular Hemoglobin Concent 34.2 g/dl Platelet Count 64 K/uL Mean Platelet Volume 9.7 fL RDW Standard Deviation 54.7 fL RDW Coefficient of Variation 17.6 % Anisocytosis PRESENT Sodium Level 133 mmol/L Potassium Level 4.5 mmol/L Chloride Level 100 mmol/L Carbon Dioxide Level 27 mmol/L Anion Gap 6.0 mmol/L Blood Urea Nitrogen 20 mg/dl Creatinine 1.53 mg/dl Est Creatinine Clear Calc Drug Dose 76.9 ml/min Estimated GFR () 67.8 Estimated GFR (Non- 58.5 BUN/Creatinine Ratio 13.0 Random Glucose 89 mg/dl Calcium Level 9.0 mg/dl Assessment & Plan Refractory non-Hodgkin's lymphoma Pancytopenia secondary to recent R-EPOCH therapy. His blood counts today are slightly better and he is afebrile. Hemoglobin is 7.6 and I would ask for a 1 unit irradiated red cell transfusion. Provided that tomorrow's counts were the same or slightly better and he is without a fever than discharge. Appreciate everyone's help.
[2017-03-15] MEDS: CEFEPIME IV 1,000 MG in SYRINGE 0 ML IV SCH ×2 (11:23→18:35)
--- NOTE | 2017-03-15 13:11 | Family Medicine Progress Note ---
Progress Note Date of Service Mar 15, 2017. Subjective Pt evaluation today including: conversation w/ patient, physical exam, chart review, lab review, review of studies Pain: No pain reported this morning Voiding: no voiding problems, no incontinence Patient is resting comfortably in bed this morning with no acute complaints. Denies any fevers or chills but has had some nasal congestion. Constitutional: + fatigue, No fever, No chills, No sweats Respiratory: + cough, No wheezing, No shortness of breath Cardiovascular: No chest pain, No palpitations Abdomen: No pain, No nausea, No vomiting, No diarrhea, No constipation Medications Current Inpatient Medications Medications (Trade) Dose Ordered Sig/Sidney Route Start Time Stop Time Status Last Admin Dose Admin Acetaminophen (Tylenol Tab) 650 mg Q4H PRN PO 03/13/17 02:15 04/12/17 02:14 03/14/17 05:41 650 MG Al Hydrox/Mg Hydrox/Simethicone (Maalox Max Susp) 15 ml Q4H PRN PO 03/13/17 02:15 04/12/17 02:14 Magnesium Hydroxide (Milk Of Magnesia Susp) 30 ml Q6H PRN PO 03/13/17 02:15 04/12/17 02:14 Polyethylene (Miralax Powder Packet) 17 gm DAILY PRN PO 03/13/17 02:15 04/12/17 02:14 Ondansetron HCl (Zofran Inj) 4 mg Q6H PRN IV 03/13/17 02:15 04/12/17 02:14 Acyclovir (Zovirax Tab) 800 mg BID PO 03/13/17 08:00 04/12/17 08:59 03/15/17 08:29 800 MG Allopurinol (Zyloprim Tab) 300 mg DAILY PO 03/13/17 08:00 04/12/17 08:59 03/15/17 08:29 300 MG Bisacodyl (Dulcolax Tab) 10 mg HS PRN PO 03/13/17 02:15 04/12/17 02:14 03/13/17 22:16 10 MG Docusate Sodium (coLACE CAP) 100 mg QAM PO 03/13/17 08:00 04/12/17 08:59 03/15/17 08:27 100 MG Docusate Sodium (coLACE CAP) 200 mg HS PO 03/13/17 21:00 04/12/17 20:59 03/14/17 20:45 200 MG Dronabinol (Marinol Cap) 2.5 mg TIDM PO 03/13/17 08:00 04/12/17 07:59 03/15/17 12:36 2.5 MG Escitalopram Oxalate (Lexapro Tab) 20 mg QAM PO 03/13/17 08:00 04/12/17 08:59 03/15/17 08:28 20 MG Lorazepam (Ativan Tab) 1 mg HS PO 03/13/17 21:00 04/12/17 20:59 03/14/17 20:44 1 MG Oxycodone HCl (Roxicodone Immediate Rel Tab) 10 mg Q4 PRN PO 03/13/17 02:15 03/27/17 02:14 Senna (Senokot Tab) 17.2 mg AMHS PO 03/13/17 08:00 04/12/17 08:59 03/15/17 08:29 17.2 MG Trimethoprim/ Sulfamethoxazole (Septra Ds 800/ 160MG Tab) 1 tab MoWeFr@0900 PO 03/13/17 09:00 04/12/17 08:59 03/15/17 08:29 1 TAB Cetirizine HCl (zyrTEC TAB) 10 mg DAILY PO 03/13/17 08:00 04/12/17 08:59 03/15/17 08:29 10 MG Dexlansoprazole (Dexilant Dr) 30 mg HS PRN PO 03/13/17 02:15 04/12/17 02:14 Dexlansoprazole (Dexilant Dr) 60 mg DAILY PO 03/13/17 08:00 04/12/17 07:59 03/15/17 08:31 60 MG Potassium Chloride (Klor-Con Tab) 20 meq BID17 PO 03/13/17 09:00 04/12/17 08:59 03/15/17 08:29 20 MEQ Venetoclax (Venclexta) 1,200 mg DAILY@1500 PO 03/13/17 15:00 04/12/17 14:59 03/14/17 17:14 1,200 MG Lidocaine HCl/ Diphenhydramine HCl/Al Hydroxide/ Mg Hydroxide/ Glycerin/Barcode Q4H PRN MT 03/13/17 03:45 04/12/17 03:44 Heparin Sodium (Porcine) (Heparin 100 Unit/ml 5ml Flush) 5 ml PRN PRN IV 03/13/17 07:45 04/12/17 07:44 03/15/17 11:23 5 ML Enteral Nutritional Formula (Boost Plus Vanilla) 1 can TID PO 03/13/17 14:00 04/12/17 13:59 03/14/17 13:52 1 CAN Gabapentin (Neurontin Tab) 800 mg Q8@0000,0800,1600 PO 03/13/17 16:00 04/12/17 15:59 03/15/17 08:28 800 MG Methadone HCl (Dolophine Tab) 15 mg Q8@0000,0800,1600 PO 03/13/17 17:00 03/27/17 16:59 03/15/17 08:28 15 MG Caspofungin 50 mg/ Sodium Chloride 260 ml @ 260 mls/hr DAILY@2100 IV 03/14/17 21:00 03/16/17 20:59 03/14/17 22:01 260 MLS/HR Cefepime HCl 1000 mg/Syringe 11 ml @ 5.5 mls/min Q8H IV 03/15/17 11:00 03/17/17 10:59 03/15/17 11:23 5.5 MLS/MIN Objective Vital Signs Date Time Temp Pulse Resp B/P (MAP) Pulse Ox O2 Delivery O2 Flow Rate FiO2 03/15/17 12:11 Room Air 03/15/17 11:31 36.4 67 20 94 03/15/17 11:23 36.5 81 18 96/61 (73) 98 Room Air 03/15/17 07:15 36.8 62 18 97/55 (69) 95 Room Air 03/15/17 05:29 37.3 68 18 132/73 (92) 94 Room Air 03/15/17 00:15 Room Air 03/15/17 00:13 36.8 72 18 102/66 (78) 100 Room Air 03/14/17 20:25 37.0 77 16 96/62 (73) 100 Room Air 03/14/17 16:00 96 Room Air 03/14/17 15:07 36.4 84 20 98/64 (75) 99 Physical Exam General Appearance: WD/WN, no apparent distress Eyes: normal inspection, sclerae normal Neck: supple Respiratory/Chest: chest non-tender, lungs clear, normal breath sounds, no respiratory distress, no accessory muscle use Cardiovascular: regular rate, rhythm, no edema, no gallop Abdomen: normal bowel sounds, non tender, soft Neurologic/Psychiatric: alert, normal mood/affect, oriented x 3 Laboratory Results Results Past 24 Hours Test 03/15/17 05:21 Range/Units White Blood Count 0.10 4.8-10.8 K/uL Red Blood Count 2.63 4.7-6.1 M/uL Hemoglobin 7.6 14.0-18.0 g/dL Hematocrit 22.2 42-52 % Mean Corpuscular Volume 84.4 80-100 fL Mean Corpuscular Hemoglobin 28.9 25-34 pg Mean Corpuscular Hemoglobin Concent 34.2 32-36 g/dl Platelet Count 64 130-400 K/uL Mean Platelet Volume 9.7 7.4-10.4 fL RDW Standard Deviation 54.7 36.4-46.3 fL RDW Coefficient of Variation 17.6 11.5-14.5 % Anisocytosis PRESENT Sodium Level 133 136-145 mmol/L Potassium Level 4.5 3.5-5.1 mmol/L Chloride Level 100 98-107 mmol/L Carbon Dioxide Level 27 21-32 mmol/L Anion Gap 6.0 3-11 mmol/L Blood Urea Nitrogen 20 7-18 mg/dl Creatinine 1.53 0.60-1.40 mg/dl Est Creatinine Clear Calc Drug Dose 76.9 ml/min Estimated GFR () 67.8 Estimated GFR (Non- 58.5 BUN/Creatinine Ratio 13.0 10-20 Random Glucose 89 70-99 mg/dl Calcium Level 9.0 8.5-10.1 mg/dl Assessment and Plan 32 yo M with diffuse recurrent B cell lymphoma, with neutropenic fever Neutropenic fever 2/2 refractory non hodgkins B cell lymphoma - WBC decreased from 0.12 to 0.04 (Pancytopenia - R-EPOCH chemotherapy 2 weeks ago) - Infection either 2/2 tumor burden, chemo, or underlying bacterial infection - Neutropenic contact precautions - Dose of Neupogen received Saturday - Cefepime + Caspofungin for empiric treatment (Day 3) - Discussed current condition with Oncologist Dr. Sosa at [facility], agreed with current treatment and plan - Blood Cultures obtained - Preliminarily negative - If blood culture positive discussed removing port and culturing the tip - ID consult - continue with current antibiotics - Tylenol for fever Acute anemia s/p transfusion of 2 units irradiated PRBC's - Hgb of 7.6 today - Transfuse 1 unit of irradiated PRBC - Repeat labs in AM B cell Lymphoma - Continue current chemo regime and pain regime (Methadone with Oxy IR) - Oncology consulted Anxiety / Insomnia - Ativan 1mg PO qHS, give at least 30 min or so after his methadone Opioid-induced constipation - Restart his Senna from home - Miralax / Lactulose PRN Admitted to 4E Full Code SCDs Disposition: Transfuse 1 unit of PRBC today and then repeat lab work tomorrow. Pending improvement of WBC and RBC counts in addition to remain afebrile, patient tentatively told of possible discharge tomorrow. Resident Tracking Resident Involvement: Resident Care Provided Care Provided: Adult Hospital Medicine
[2017-03-15] MEDS: VENETOCLAX 100 MG TAB PO SCH (16:34)
[2017-03-15] MEDS: LORAZEPAM 1 MG TAB PO SCH (21:57)
[2017-03-15] MEDS: CASPOFUNGIN INJ 50 MG in SODIUM CHLORIDE 0.9% 250ML 250 ML IV SCH (22:02)
[2017-03-16] MEDS: GABAPENTIN 800 MG TAB PO SCH ×2 (00:51→08:15)
[2017-03-16] MEDS: METHADONE HCL 10 MG TAB PO SCH ×2 (00:52→08:16)
[2017-03-16] MEDS: CEFEPIME IV 1,000 MG in SYRINGE 0 ML IV SCH ×2 (03:35→10:53)
[2017-03-16 05:14] VITALS: BP 103/67; PULSE 76; TEMP 37.1; O2SAT 91
[2017-03-16 06:58] LABS: HEMATOCRIT 27.7 % (42-52); MEAN CELL VOLUME 84.7 fL (80-100); MEAN CORPUSCULAR HEMOGLOBIN 28.4 pg (25-34); MEAN CORPUSCULAR HGB CONC 33.6 g/dl (32-36); PLATELET COUNT 94 K/uL (130-400); RED BLOOD COUNT 3.27 M/uL (4.7-6.1); WHITE BLOOD COUNT 0.11 K/uL (4.8-10.8)
[2017-03-16 07:01] LABS: COMPLETE YES
[2017-03-16 07:19] LABS: BUN/CREATININE RATIO 16.3 (10-20); CREATININE 1.44 mg/dl (0.60-1.40); POTASSIUM 4.9 mmol/L (3.5-5.1)
[2017-03-16 07:20] VITALS: BP 93/56; PULSE 81; TEMP 37.1; O2SAT 91
[2017-03-16] MEDS: BOOST PLUS VANILLA PO SCH ×2 (08:00)
[2017-03-16] MEDS: POTASSIUM CHLORIDE 20 MEQ TABCR PO SCH (08:14)
[2017-03-16] MEDS: DOCUSATE SODIUM 100 MG CAP PO SCH (08:14)
[2017-03-16] MEDS: ESCITALOPRAM OXALATE 20 MG TAB PO SCH (08:14)
[2017-03-16] MEDS: ACYCLOVIR 400 MG TAB PO SCH (08:15)
[2017-03-16] MEDS: SENNA 8.6 MG TAB PO SCH (08:15)
[2017-03-16] MEDS: ALLOPURINOL 300 MG TAB PO SCH (08:15)
[2017-03-16] MEDS: DRONABINOL 2.5 MG CAP PO SCH (08:15)
[2017-03-16] MEDS: CETIRIZINE HCL 10 MG TAB PO SCH (08:16)
[2017-03-16] MEDS: DEXLANSOPRAZOLE 60 MG CAPDR PO SCH (08:17)
[2017-03-16] MEDS ORDERED: LEVO1TAB35 PO (10:17)
--- NOTE | 2017-03-16 10:25 | Discharge Instructions ---
Discharge Instructions Date of Service Mar 16, 2017. Admission Reason for Admission: Anemia, Neutropenic Fever Discharge Discharge Diagnosis / Problem: Neutropenic Fever Discharge Goals Goal(s): Improve disease control, Therapeutic intervention Activity Recommendations Activity Limitations: as noted below Lifting Limitations: gradually increase as tolerated Exercise/Sports Limitations: gradually increase as tolerated Shower/Bathe: no limitations . Instructions / Follow-Up Instructions / Follow-Up You were treated in the hospital for fevers and a low white blood cell count. You were treated in the hospital with IV antibiotics (Antiviral, Antibacterial, and Antifungal). You were also treated for anemia with 3 blood transfusion and your hemoglobin at the time of discharge was 9.3. You are stable for discharge at this time with scheduled chemotherapy with Dr. Sosa next Saturday. You will be discharged home on a 5 day course of levaquin (Levofloxacin). Medications: - Resume all previous home medication - Levaquin 750mg Tab - 1 Tab daily for the next five days - You may take Tylenol 650 mg every 4 hours as needed for fevers- do NOT exceed more than 4000 mg per day as this can be harmful to your liver If you present with any worsening symptoms including prolonged fevers, chills, sweats, chest pain, shortness of breath, confusion, altered mental status, or any other acute concerns please return to the hospital or be evaluated by a physician as soon as possible Current Hospital Diet Patient's current hospital diet: Regular Diet Discharge Diet Recommended Diet: Regular Diet Pending Studies Studies pending at discharge: no Laboratory Results Hemoglobin A1c Test 01/22/17 13:25 Range/Units Estimated Average Glucose 123 mg/dl Hemoglobin A1c 5.9 H 4.5-5.6 % Medical Emergencies . Who to Call and When: Medical Emergencies: If at any time you feel your situation is an emergency, please call 911 immediately. . Non-Emergent Contact Non-Emergency issues call your: Primary Care Provider, Oncologist . . "Provider Documentation" section prepared by Chato Enriquez. . VTE Core Measure Inpt VTE Proph given/why not?: SCD's, Contraindicated Resident Tracking Resident Involvement: Resident Care Provided Care Provided: Adult Hospital Medicine
[2017-03-16 10:39] VITALS: BP 93/56; PULSE 81; TEMP 37.1; O2SAT 91
--- NOTE | 2017-03-16 16:38 | Discharge Summary ---
Discharge Summary Date of Service Mar 16, 2017. Discharge Summary Admission Date: Mar 13, 2017 at 02:09 Discharge Date: Mar 16, 2017 Discharge Disposition: Home Principal Diagnosis: neutropenic fever Problems/Secondary Diagnoses: Non-Hodgkin's B-cell lymphoma Immunizations: Have You Had Influenza Vaccine: No History of Tetanus Vaccine?: Unknown History of Pneumococcal: Unknown History of Hepatitis B Vaccine: Unknown Medication Reconciliation New Medications: Levofloxacin (Levaquin) 750 Mg Tab 750 MG PO DAILY for 5 Days, #5 TAB Continued Medications: Acyclovir (Zovirax) 800 Mg Tab 800 MG PO BID for 10 Days, #20 TAB Allopurinol (Allopurinol) 300 Mg Tab 1 TAB PO DAILY Bisacodyl (Bisacodyl) 5 Mg Tab 2 TAB PO HS PRN for Constipation Cetirizine Hcl (Cetirizine Hcl) 10 Mg Chw 1 TAB PO DAILY Dexlansoprazole (Dexilant) 60 Mg Cap 60 MG PO QAM Dexlansoprazole (Dexilant) 30 Mg Cap 30 MG PO HS PRN for gerd Docusate Sodium (Docusate Sodium) 100 Mg Cap 100 MG PO QAM Docusate Sodium (Docusate Sodium) 100 Mg Cap 200 MG PO HS Dronabinol (Marinol) 2.5 Mg Cap 2.5 MG PO TIDM Escitalopram Oxalate (Lexapro) 20 Mg Tab 20 MG PO QAM Gabapentin (Neurontin) 800 Mg Tab 800 MG PO TID, TAB Lorazepam (Ativan) 1 Mg Tab 1 MG PO HS Methadone Hcl (Dolophine) 10 Mg Tab 20 MG PO Q8, TAB Oxycodone Immediate Rel Tab (Roxicodone Ir) 5 Mg Tab 10-15 MG PO Q4 PRN for Pain, TAB Phenol-Sodium Borate (Ulcerease) 1 Viky Viky 15 ML PO Q6H SWISH AND SPIT Potassium Chloride (K-Tab) 20 Meq Tab 20 MEQ PO BID Sennosides (Senna-Lax) 8.6 Mg Tab 2 TABS PO AMHS Sulfa/Trimethoprim (Bactrim Ds 800MG/160MG) Tab 1 TAB PO 3XWK, #6 TAB MON,WED,FRI Venetoclax (Venclexta) 100 Mg Tab 12 TABS PO DAILY@1500 [Magic Mouth Wash] () 5 ML PO Q4H SWISH AND SPIT Discharge Exam Review of Systems: Constitutional: + fatigue, No fever, No chills, No sweats Respiratory: + cough, + sputum (white sputum), No shortness of breath Cardiovascular: No chest pain, No palpitations Abdomen: No pain, No nausea, No vomiting Genitourinary - Male: No dysuria Neurologic: No numbness/tingling Integumentary: No rash Physical Exam: General Appearance: WD/WN, + thin Eyes: normal inspection, sclerae normal ENT: pharynx normal Neck: supple Respiratory/Chest: chest non-tender, lungs clear, normal breath sounds Cardiovascular: regular rate, rhythm, no edema, no gallop, no murmur Abdomen / GI: normal bowel sounds, non tender, soft Neurologic/Psychiatric: alert, normal mood/affect, oriented x 3 Skin: no rash Hospital Course The patient is a 32-year-old male with recurrent B-cell lymphoma that presents with prolonged fevers. The patient was recently admitted 2 weeks ago for similar complaints. On admission the patient was found to have a white blood cell count of 0.12 in addition to elevated fevers. The patient recently received chemotherapy 2 weeks ago at the [facility]. The patient was started on IV antibiotics, antiviral, and antifungal medications. After day 2 of admission the patient's fevers were resolved, but he continued to have neutropenia in addition to a low hemoglobin. The patient received a total of 3 units of blood during his admission and on discharge his hemoglobin was greater than 9. On the final 2 days of his admission the patient's white blood cell count continued to rise to a level that was acceptable on discharge. The patient will have chemotherapy at the end of next week. There were no positive blood cultures or found sources of infection at this time, and it is believed that his fevers and low white blood cell count were most likely either due to his recent chemotherapy or his tumor burden. The patient will be discharged on an additional 5 day course of by mouth Levaquin. Total Time Spent: Greater than 30 minutes This includes examination of the patient, discharge planning, medication reconciliation, and communication with other providers. Discharge Instructions Please refer to the electronic Patient Visit Report (Discharge Instructions) for additional information. Additional Copies To Dorian Franz M.D. Resident Tracking Resident Involvement: Resident Care Provided Care Provided: [facility]
== END 2017-03-16 11:30 | disposition home or self-care (01) | DRG 809 ==
LOC: C.EDB 22:27 → C.MS4W 03-13 02:09 → ENRESERV 03-13 02:26 → C.4E 03-13 17:00
PROVIDERS: ADMIT Internal Medicine; ATTEND Hospitalist
DX: D70.9 Neutropenia, unspecified (principal); C85.80 Other specified types of non-Hodgkin lymphoma, unspecified site; R50.81 Fever presenting with conditions classified elsewhere; D61.810 Antineoplastic chemotherapy induced pancytopenia; K59.03 Drug induced constipation; T40.605A Adverse effect of unspecified narcotics, initial encounter; K21.9 Gastro-esophageal reflux disease without esophagitis; F41.9 Anxiety disorder, unspecified; G47.00 Insomnia, unspecified; N18.9 Chronic kidney disease, unspecified; Z79.899 Other long term (current) drug therapy; Z79.891 Long term (current) use of opiate analgesic

== ENCOUNTER → 2017-04-01 | Outpatient (CLI) | payer BC ==
[~2017-04-01] MED LIST changes: +CEFP200T14 PO; -FLUC200T4 PO; -LEVO1TAB33 PO; +NRN600 PO; +POTA1TAB97 PO; -SEVE1TAB PO
[2017-04-01 15:30] LABS: ALT/SGPT 23 U/L (12-78); BLOOD UREA NITROGEN 31 mg/dl (7-18); BUN/CREATININE RATIO 24.3 (10-20); CALCIUM 9.6 mg/dl (8.5-10.1); CARBON DIOXIDE 27 mmol/L (21-32); CHLORIDE 101 mmol/L (98-107); CREATININE 1.27 mg/dl (0.60-1.40); GLUCOSE 99 mg/dl (70-99); MAGNESIUM 1.7 mg/dl (1.8-2.4); SODIUM 136 mmol/L (136-145)
[2017-04-01 15:33] LABS: ALB/GLOB RATIO 0.9 (0.9-2); ALKALINE PHOSPHATASE 99 U/L (45-117); AST/SGOT 9 U/L (15-37)
[2017-04-01 15:48] LABS: HEMATOCRIT 30.3 % (42-52); MEAN CELL VOLUME 86.3 fL (80-100); MEAN CORPUSCULAR HEMOGLOBIN 28.8 pg (25-34); MEAN CORPUSCULAR HGB CONC 33.3 g/dl (32-36); MEAN PLATELET VOLUME 8.4 fL (7.4-10.4); PLATELET COUNT 79 K/uL (130-400); RED BLOOD COUNT 3.51 M/uL (4.7-6.1); WHITE BLOOD COUNT 0.07 K/uL (4.8-10.8)
[2017-04-01 15:49] LABS: PLT ESTIMATE DECREASED
--- NOTE | 2017-04-05 10:20 | CODING QUERY NO DIAGNOSIS ---
TREATMENT RENDERED WITHOUT A DIAGNOSIS : 1985 To promote full compliance with coding requirements relating to patient care, physician participation is requested in all cases of virtual office assistant uncertainty. Please assist us with providing a diagnosis/symptom for the test(s) below: A diagnosis/symptom was not documented on your Order. A valid diagnosis/symptom is required to bill all insurances. Please remember that we are unable to code a diagnosis of rule out, probable, possible, questionable, or suspected. Tests that require a diagnosis: DOS: 04/01/17 * CBC WITH AUTO DIFFER DIAGNOSIS: * COMPREHENSIVE METABO DIAGNOSIS: * MAGNESIUM DIAGNOSIS: * CBC W/O DIFF DIAGNOSIS: Provider Signature: Date: Thank you Pat Hendricks Health Information Management Once completed, please kindly fax back to [phone] For questions please call [phone]
== END | disposition home or self-care (01) ==
LOC: C.LABSPEC 11:55
PROVIDERS: ATTEND Internal Medicine Hematology & Oncology
DX: C83.30 Diffuse large B-cell lymphoma, unspecified site (principal)

== ENCOUNTER → 2017-04-08 | Outpatient (CLI) | payer BC ==
[~2017-04-08] MED LIST changes: -CEFP200T14 PO; -NRN600 PO
[2017-04-08 15:30] LABS: ALT/SGPT 19 U/L (12-78); AST/SGOT 11 U/L (15-37); BLOOD UREA NITROGEN 19 mg/dl (7-18); BUN/CREATININE RATIO 15.8 (10-20); CALCIUM 9.6 mg/dl (8.5-10.1); CARBON DIOXIDE 31 mmol/L (21-32); CHLORIDE 105 mmol/L (98-107); CREATININE 1.22 mg/dl (0.60-1.40); GLUCOSE 114 mg/dl (70-99); MAGNESIUM 1.7 mg/dl (1.8-2.4); SODIUM 138 mmol/L (136-145)
[2017-04-08 15:33] LABS: ALB/GLOB RATIO 0.9 (0.9-2); ALKALINE PHOSPHATASE 103 U/L (45-117)
[2017-04-08 16:10] LABS: DOHLE BODIES 1+; LARGE PLATELETS 2+; TOXIC GRANULATION 3+
[2017-04-08 16:16] LABS: COMPLETE YES; HEMATOCRIT 25.7 % (42-52); LYMPH ABS # 0.16 K/uL (1.2-3.4); LYMPHOCYTE % 14.3 %; MEAN CELL VOLUME 88.6 fL (80-100); MEAN CORPUSCULAR HGB CONC 32.7 g/dl (32-36); MEAN PLATELET VOLUME 8.6 fL (7.4-10.4); MYELOCYTE % 1.8 %; NEUTROPHILS % 81.2 %; PLATELET COUNT 213 K/uL (130-400); WHITE BLOOD COUNT 1.15 K/uL (4.8-10.8)
== END | disposition home or self-care (01) ==
LOC: C.LAB 12:51
PROVIDERS: ATTEND Internal Medicine Hematology & Oncology
DX: C83.30 Diffuse large B-cell lymphoma, unspecified site (principal)

== ENCOUNTER → 2017-04-22 | Outpatient (CLI) | payer OTHER ==
[~2017-04-22] MED LIST changes: +CEFP200T14 PO; +CEFT1INJ57 IV; +CFP2IV IV; +Enteral Nutrition Formula PO; +LEVO1TAB33 PO; +LVNIS40 SQ; +MGNO400 PO; +NRN600 PO; +NUTR-25 PO; +TMF75 PO; +VANC500I IV; +[UNRECOGNIZED DRUG - OTHER] MT
[2017-04-22 16:45] LABS: ALBUMIN 3.2 gm/dl (3.4-5.0); ALT/SGPT 26 U/L (12-78); AST/SGOT 7 U/L (15-37); BLOOD UREA NITROGEN 41 mg/dl (7-18); CALCIUM 9.3 mg/dl (8.5-10.1); CARBON DIOXIDE 29 mmol/L (21-32); CREATININE 1.46 mg/dl (0.60-1.40); GLUCOSE 95 mg/dl (70-99); POTASSIUM 4.9 mmol/L (3.5-5.1); SODIUM 133 mmol/L (136-145)
[2017-04-22 16:49] LABS: ALKALINE PHOSPHATASE 97 U/L (45-117); TOTAL PROTEIN 6.6 gm/dl (6.4-8.2)
[2017-04-22 17:06] LABS: HEMATOCRIT 26.2 % (42-52); HEMOGLOBIN 8.9 g/dL (14.0-18.0); MEAN CELL VOLUME 87.9 fL (80-100); MEAN CORPUSCULAR HEMOGLOBIN 29.9 pg (25-34); MEAN PLATELET VOLUME 9.3 fL (7.4-10.4); PLATELET COUNT 37 K/uL (130-400); RED CELL DISTRIBUTION WIDTH CV 17.3 % (11.5-14.5); RED CELL DISTRIBUTION WIDTH SD 54.5 fL (36.4-46.3); WHITE BLOOD COUNT 0.05 K/uL (4.8-10.8)
== END | disposition home or self-care (01) ==
LOC: C.LAB 15:54
PROVIDERS: ATTEND Internal Medicine Hematology & Oncology
DX: Z01.89 Encounter for other specified special examinations (principal)

== ENCOUNTER 2017-04-26 02:01 | Inpatient (IN) | payer OTHER ==
[2017-04-26] VITALS (17 sets, daily range): BP systolic 82–113; BP diastolic 46–65; PULSE 76–90; TEMP 36–38.9; O2SAT 95–100; BMI 26.6
[~2017-04-26] VITALS: Ht 185.4 cm; Wt 89.6 kg
[~2017-04-26 02:01] MED LIST changes: -CEFP200T14 PO; -CEFT1INJ57 IV; -CFP2IV IV; -Enteral Nutrition Formula PO; -LEVO1TAB33 PO; -LVNIS40 SQ; -MGNO400 PO; -NRN600 PO; -NUTR-25 PO; -TMF75 PO; -VANC500I IV; -[UNRECOGNIZED DRUG - OTHER] MT
--- NOTE | 2017-04-26 02:18 | EMERGENCY ROOM VISIT NOTE ---
History Report prepared by Alie: Reese Mccrary Under the Supervision of: Dr. Malik Staples M.D. First contact with patient: 02:10 Chief Complaint: FEVER Stated Complaint: FEVER,CANCER PATIENT History of Present Illness The patient is a 32 year old male with a history of recurrent lymphoma who presents to the Emergency Room with complaints of a persistent fever that started prior to arrival tonight. He states that he started his most recent chemotherapy 2 weeks ago, and ever since starting that, he has had intermittent hiccups that will not go away. The patient notes that he has had a productive cough for a week and he gets dizzy if he leans over too much. He adds that he is having some body aches. He denies any hematochezia. He notes that he is on an antibiotic currently. The patient states that he was seen by his doctor, and his white blood cell count was down. 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 Dizzy if leans over too much. Body aches. Review of Systems See HPI for pertinent positives & negatives. A total of 10 systems reviewed and were otherwise negative. Past Medical & Surgical Medical Problems: (1) Anemia (2) GERD (gastroesophageal reflux disease) (3) Lymphoma (4) Neutropenic fever (5) Sore throat Surgical Problems: (1) History of liver biopsy Family History Cancer Heart disease Social History Smoking Status: Never Smoker Drug Use: none Marital Status: Housing Status: lives with significant other Occupation Status: employed Current/Historical Medications Scheduled Acyclovir (Zovirax), 800 MG PO BID Cefpodoxime Proxetil (Cefpodoxime Proxetil), 1 TAB PO BID Cetirizine Hcl (Cetirizine Hcl), 1 TAB PO DAILY Dexlansoprazole (Dexilant), 60 MG PO QAM Docusate Sodium (Docusate Sodium), 100 MG PO QAM Docusate Sodium (Docusate Sodium), 200 MG PO HS Dronabinol (Marinol), 5 MG PO TIDM Escitalopram Oxalate (Lexapro), 20 MG PO QAM Gabapentin (Gabapentin), 600 MG PO TID Lorazepam (Ativan), 1 MG PO HS Methadone Hcl (Dolophine), 15 MG PO Q8 Phenol-Sodium Borate (Ulcerease), 15 ML PO Q6H Sennosides (Senna-Lax), 2 TABS PO AMHS Sulfa/Trimethoprim (Bactrim Ds 800MG/160MG), 1 TAB PO 3XWK Venetoclax (Venclexta), 12 TABS PO DAILY@1500 [Magic Mouth Wash], 5 ML PO Q4H Scheduled PRN Bisacodyl (Bisacodyl), 2 TAB PO HS PRN for Constipation Dexlansoprazole (Dexilant), 30 MG PO HS PRN for gerd Oxycodone Immediate Rel Tab (Roxicodone Ir), 10-15 MG PO Q4 PRN for Pain Allergies Coded Allergies: Erythromycin (Verified Adverse Reaction, Intermediate, GI SYMPTOMS, 04/26/17 ) Prochlorperazine (Verified Adverse Reaction, Unknown, change in mental status, 04/26/17) Physical Exam Vital Signs Date Time Temp Pulse Resp B/P (MAP) Pulse Ox O2 Delivery O2 Flow Rate FiO2 04/26/17 03:00 39.0 95 16 113/56 100 Room Air 04/26/17 02:06 39.4 116 18 108/53 98 Room Air Physical Exam GENERAL: Patient is well appearing and in mild acute distress. HEENT: No acute trauma, normocephalic atraumatic, mucous membranes moist, no nasal congestion. Pale conjunctiva. NECK: No stridor, no adenopathy, no meningismus, trachea is midline. LUNGS: No dyspnea. Clear to auscultation and equal bilaterally. No wheeze, no rhonchi. HEART: Tachycardic rate and regular rhythm. No murmurs, rubs, gallops appreciated. ABDOMEN: Soft, nontender, bowel sounds positive, no masses appreciated, no peritonitis. BACK: No midline tenderness, no CVA tenderness EXTREMITIES: Normal motion all extremities, no cyanosis, no edema. NEUROLOGIC: Alert and oriented, no acute motor or sensory deficits, no focal weakness, cranial nerves grossly intact. SKIN: Pale skin. No rash, no jaundice, no diaphoresis. Medical Decision & Procedures ER Provider Diagnostic Interpretation: X ray results are stated below per my interpretation: Chest: 1 view: No infiltrate, no effusion, normal cardiac border. Laboratory Results 04/26/17 02:36 04/26/17 02:36 Test 04/26/17 02:36 04/26/17 02:39 04/26/17 03:00 04/26/17 03:14 Red Blood Count 2.13 M/uL (4.7-6.1) Mean Corpuscular Volume 85.9 fL (80-100) Mean Corpuscular Hemoglobin 30.0 pg (25-34) Mean Corpuscular Hemoglobin Concent 35.0 g/dl (32-36) RDW Standard Deviation 54.2 fL (36.4-46.3) RDW Coefficient of Variation 17.2 % (11.5-14.5) Mean Platelet Volume 8.8 fL (7.4-10.4) Prothrombin Time 10.4 SECONDS (9.0-12.0) Prothromb Time International Ratio 1.0 (0.9-1.1) Anion Gap 5.0 mmol/L (3-11) Est Creatinine Clear Calc Drug Dose 91.2 ml/min Estimated GFR () 83.3 Estimated GFR (Non- 71.9 BUN/Creatinine Ratio 22.5 (10-20) Calcium Level 8.4 mg/dl (8.5-10.1) Magnesium Level 1.6 mg/dl (1.8-2.4) Total Bilirubin 0.4 mg/dl (0.2-1) Direct Bilirubin 0.1 mg/dl (0-0.2) Aspartate Amino Transf (AST/SGOT) 12 U/L (15-37) Alanine Aminotransferase (ALT/SGPT) 25 U/L (12-78) Alkaline Phosphatase 116 U/L (45-117) C-Reactive Protein 16.90 mg/dl (0-0.29) Total Protein 6.2 gm/dl (6.4-8.2) Albumin 2.9 gm/dl (3.4-5.0) Procalcitonin 0.48 ng/ml (0-0.5) Bedside Lactic Acid Venous 0.39 mmol/L (0.90-1.70) Influenza Type A (RT-PCR) Neg for Influ A (NEG) Influenza Type A Antigen Neg for Influ A (NEG) Influenza Type B Antigen Neg for Influ B (NEG) Influenza Type B (RT-PCR) Neg for Influ B (NEG) Urine Color YELLOW Urine Appearance CLEAR (CLEAR) Urine pH 5.0 (4.5-7.5) Urine Specific Index 1.015 (1.000-1.030) Urine Protein NEG (NEG) Urine Glucose (UA) NEG (NEG) Urine Ketones NEG (NEG) Urine Occult Blood NEG (NEG) Urine Nitrite NEG (NEG) Urine Bilirubin NEG (NEG) Urine Urobilinogen NEG (NEG) Urine Leukocyte Esterase NEG (NEG) Urine WBC (Auto) 1-5 /hpf (0-5) Urine RBC (Auto) 0-4 /hpf (0-4) Urine Hyaline Casts (Auto) 0 /lpf (0-5) Urine Epithelial Cells (Auto) 5-10 /lpf (0-5) Urine Bacteria (Auto) NEG (NEG) Laboratory results as reviewed by me. Medications Administered Medications (Trade) Dose Ordered Sig/Sidney Route Start Time Stop Time Status Last Admin Dose Admin Acetaminophen (Tylenol Tab) 1,000 mg NOW STAT PO 04/26/17 02:23 04/26/17 02:28 DC 04/26/17 02:45 1,000 MG Vancomycin HCl 2000 mg/Sodium Chloride 290 ml @ 125 mls/hr NOW STAT IV 04/26/17 02:23 04/26/17 04:42 DC 04/26/17 02:46 125 MLS/HR Oseltamivir Phosphate (Tamiflu Cap) 75 mg NOW STAT PO 04/26/17 02:23 04/26/17 02:28 DC 04/26/17 02:45 75 MG Cefepime HCl 2000 mg/Dextrose 122 ml @ 200 mls/hr NOW STAT IV 04/26/17 02:23 04/26/17 02:59 DC 04/26/17 02:46 200 MLS/HR ED Course 0213: The patient was evaluated in room B4B. A complete history and physical exam was performed. 0304: Upon reevaluation, the patient is resting. Discussed results and treatment plan with the patient. he verbalized understanding and agreement with the treatment plan. The patient will be evaluated for further management. 0306: I discussed the patient with Dr. Neri - [facility] mate chief - he will evaluate the patient for further treatment. 0322: I reevaluated the patient and he says that he took his home pain medications and he is feeling well and does not need further pain medications. Medical Decision Differential: Viral, Pharyngitis, Cellulitis, Pneumonia, Influenza, Meningitis, Sepsis, Bacteremia, UTI/Pyelonephritis, Endocrine, Toxicologic, amongst other pathologies entertained. 32 yr old male with recurrent b cell lymphoma on chemo with recent treatment Apr 12. Notes worsening neutropenia and then developing fever this evening. No signifciant new symptoms nor other complaints. Chronic pain not requiring more than standard outpatient pain meds. Severely neutropenic and treated as such on arrival. Blood cultures obtained and broad abx started. Empiric tamiflu given URI symptoms and extensive flu in local area. Pancytopenic. Ordered 2 U PRBC for transfusion after reviewing risks/benefits which patient agrees to transfusion. Admit to hospitalist for further treatment. By exam he does not have meningitis. Not septic shock as lactate OK. Did have mild low BP but would prefer not to give too much IV fluids to avoid further worsening of anemia. Medication Reconcilliation Current Medication List: was personally reviewed by me Blood Pressure Screening Patient's blood pressure: Normal blood pressure Consults Time Called: 0304 Consulting Physician: Dr. Daron LAUREN mate chief Returned Call: [phone] I discussed the patient with Dr. Daron LAUREN mate chief - he will evaluate the patient for further treatment. Impression Primary Impression: Febrile neutropenia Additional Impressions: Anemia Pancytopenia Scribe Attestation The scribe's documentation has been prepared under my direction and personally reviewed by me in its entirety. I confirm that the note above accurately reflects all work, treatment, procedures, and medical decision making performed by me. Departure Information Dispostion Being Evaluated By Hospitalist Referrals Dorian Franz M.D. (PCP) Patient Instructions My [facility] Problem Qualifiers
[2017-04-26] MEDS ORDERED: OSELTAMIVIR PHOSPHATE 75 MG CAP PO STA (02:23)
[2017-04-26] MEDS ORDERED: ACETAMINOPHEN 500 MG TAB PO STA (02:23)
[2017-04-26] MEDS ORDERED: VANCOMYCIN INJ 2,000 MG in SODIUM CHLORIDE 0.9% 250ML 250 ML IV STA (02:23)
[2017-04-26] MEDS ORDERED: CEFEPIME IV 2,000 MG in DEXTROSE 5% 100ML 100 ML IV STA (02:23)
[2017-04-26 02:57] LABS: HEMATOCRIT 18.3 % (42-52); HEMOGLOBIN 6.4 g/dL (14.0-18.0); MEAN CELL VOLUME 85.9 fL (80-100); MEAN PLATELET VOLUME 8.8 fL (7.4-10.4); PLATELET COUNT 56 K/uL (130-400); RED CELL DISTRIBUTION WIDTH CV 17.2 % (11.5-14.5); RED CELL DISTRIBUTION WIDTH SD 54.2 fL (36.4-46.3); WHITE BLOOD COUNT 0.04 K/uL (4.8-10.8)
[2017-04-26 03:05] LABS: ALBUMIN 2.9 gm/dl (3.4-5.0); CALCIUM 8.4 mg/dl (8.5-10.1); CREATININE 1.29 mg/dl (0.60-1.40); POTASSIUM 4.1 mmol/L (3.5-5.1)
[2017-04-26 03:08] LABS: TOTAL PROTEIN 6.2 gm/dl (6.4-8.2)
[2017-04-26] MEDS ORDERED: NRN600 PO (03:22)
[2017-04-26] MEDS ORDERED: CEFP200T14 PO (03:23)
[2017-04-26 03:36] LABS: INFLUENZA B ANTIGEN Neg for Influ B (NEG)
[2017-04-26] MEDS ORDERED: PHENOL PO SCH (04:00)
[2017-04-26] MEDS ORDERED: [UNRECOGNIZED DRUG - OTHER] PO SCH (04:00)
[2017-04-26] MEDS ORDERED: BISACODYL 5 MG TABEC PO PRN ×2 (04:00→07:45)
[2017-04-26] MEDS: MAGIC MOUTH WASH PO SCH ×3 (04:00→12:00)
[2017-04-26] MEDS ORDERED: MAGNESIUM HYDROXIDE SUSP 30 ML UDC PO PRN ×2 (04:00→08:00)
[2017-04-26] MEDS ORDERED: ONDANSETRON INJ 2 MG/ML 2 ML VIAL IV PRN ×2 (04:00→08:00)
[2017-04-26] MEDS ORDERED: NON-FORMULARY MEDICATION (Dexlansoprazole (Dexilant) 30 MG) PO PRN (04:00)
[2017-04-26] MEDS ORDERED: ALUMINUM/MAGNESIUM/SIMETH (MAALOX MAX) 30 ML UDC PO PRN ×2 (04:00→07:45)
[2017-04-26] MEDS ORDERED: ACETAMINOPHEN 325 MG TAB PO PRN ×2 (04:00→07:45)
[2017-04-26] MEDS ORDERED: OXYCODONE HCL IR 5 MG TAB (IMMEDIATE RELEASE) PO PRN (04:00)
[2017-04-26 04:01] LABS: INFLUENZA A PCR Neg for Influ A (NEG); INFLUENZA B PCR Neg for Influ B (NEG)
--- NOTE | 2017-04-26 06:00 | History and Physical ---
History & Physical Date & Time of Service: Apr 26, 2017 at 05:30 Chief Complaint: Fever,Cancer Patient Primary Care Physician: Dorian Franz M.D. History of Present Illness Source: patient The patient is a 32 year old male with B-cell lymphoma currently undergoing EPOCH-R plus Venclexta chemotherapy every 3 weeks with his most recent treatment being his fourth round that presents with neutropenic fever. The patient took his temperature at home tonight and found it to be 101. The patient has had multiple admissions for neutropenic fever in the past and was informed during his most recent blood work that he was neutropenic. The patient states he has had a productive cough for the last week of clear whitish sputum. He denies any fevers other than this evening and was experiencing chills in the ED on admission. He has also been experiencing some lightheadedness recently especially when leaning forward. He denies any diarrhea at this time and has had normal bowel movements not requiring the use of his bowel regimen over the last few weeks. The patient is scheduled to have a PET scan next to evaluate the effect of his current chemo. The patient has been nauseous at night but this has been consistent throughout the course of his chemo and is on Zofran and Marinol. The patient denies any vomiting, abdominal pain, chest pain , headaches, or shortness of breath. Past Medical/Surgical History Medical Problems: (1) GERD (gastroesophageal reflux disease) Status: Chronic (2) Lymphoma Status: Chronic Surgical Problems: (1) History of liver biopsy Status: Resolved Family History Cancer Heart disease Social History Smoking Status: Never Smoker Drug Use: none Marital Status: Housing status: lives with family Occupational Status: employed Immunizations History of Influenza Vaccine: No History of Tetanus Vaccine?: Unknown History of Pneumococcal: Unknown History of Hepatitis B Vaccine: Unknown Multi-Drug Resistant Organisms History of MDRO: No Allergies Coded Allergies: Erythromycin (Verified Adverse Reaction, Intermediate, GI SYMPTOMS, 04/26/17 ) Prochlorperazine (Verified Adverse Reaction, Unknown, change in mental status, 04/26/17) Home Medications Scheduled Acyclovir (Zovirax), 800 MG PO BID Cefpodoxime Proxetil (Cefpodoxime Proxetil), 1 TAB PO BID Cetirizine Hcl (Cetirizine Hcl), 1 TAB PO DAILY Dexlansoprazole (Dexilant), 60 MG PO QAM Docusate Sodium (Docusate Sodium), 100 MG PO QAM Docusate Sodium (Docusate Sodium), 200 MG PO HS Dronabinol (Marinol), 5 MG PO TIDM Escitalopram Oxalate (Lexapro), 20 MG PO QAM Gabapentin (Gabapentin), 600 MG PO TID Lorazepam (Ativan), 1 MG PO HS Methadone Hcl (Dolophine), 15 MG PO Q8 Phenol-Sodium Borate (Ulcerease), 15 ML PO Q6H Sennosides (Senna-Lax), 2 TABS PO AMHS Sulfa/Trimethoprim (Bactrim Ds 800MG/160MG), 1 TAB PO 3XWK Venetoclax (Venclexta), 12 TABS PO DAILY@1500 [Magic Mouth Wash], 5 ML PO Q4H Scheduled PRN Bisacodyl (Bisacodyl), 2 TAB PO HS PRN for Constipation Dexlansoprazole (Dexilant), 30 MG PO HS PRN for gerd Oxycodone Immediate Rel Tab (Roxicodone Ir), 10-15 MG PO Q4 PRN for Pain Review of Systems Constitutional: + chills, + fatigue, No fever, No sweats, No weight loss Respiratory: + cough, + sputum, No wheezing, No shortness of breath, No dyspnea on exertion Cardiovascular: No chest pain, No palpitations Abdomen: + nausea, No pain, No vomiting, No diarrhea, No constipation Endocrine: + fatigue Hematologic / Lymphatic: No abnormal bleeding/bruising Physical Exam Vital Signs Date Time Temp Pulse Resp B/P (MAP) Pulse Ox O2 Delivery O2 Flow Rate FiO2 04/26/17 05:15 83 16 100/46 95 04/26/17 05:11 88 16 100/61 96 04/26/17 05:00 38.0 88 16 100/61 95 04/26/17 04:45 86 16 113/55 96 04/26/17 04:30 38.0 89 16 103/47 95 04/26/17 04:17 38.4 83 16 96/48 96 Room Air 04/26/17 04:15 38.4 88 16 96/48 96 04/26/17 04:05 38.9 90 16 95/51 97 04/26/17 04:01 38.9 87 18 82/51 95 04/26/17 03:00 39.0 95 16 113/56 100 Room Air 04/26/17 02:06 39.4 116 18 108/53 98 Room Air General Appearance: no apparent distress, + thin Head: normocephalic, atraumatic Eyes: normal inspection, sclerae normal Neck: supple, no carotid bruits Respiratory/Chest: chest non-tender, lungs clear, normal breath sounds Cardiovascular: regular rate, rhythm, no edema, no gallop Abdomen/GI: normal bowel sounds, non tender, soft Extremities/Musculoskelatal: no calf tenderness, no pedal edema Neurologic/Psych: alert, normal mood/affect, oriented x 3 Diagnostics Laboratory Results Results Past 24 Hours Test 04/26/17 02:36 04/26/17 02:39 04/26/17 03:00 04/26/17 03:14 Range/Units White Blood Count 0.04 4.8-10.8 K/uL Red Blood Count 2.13 4.7-6.1 M/uL Hemoglobin 6.4 14.0-18.0 g/dL Hematocrit 18.3 42-52 % Mean Corpuscular Volume 85.9 80-100 fL Mean Corpuscular Hemoglobin 30.0 25-34 pg Mean Corpuscular Hemoglobin Concent 35.0 32-36 g/dl RDW Standard Deviation 54.2 36.4-46.3 fL RDW Coefficient of Variation 17.2 11.5-14.5 % Platelet Count 56 130-400 K/uL Mean Platelet Volume 8.8 7.4-10.4 fL Prothrombin Time 10.4 9.0-12.0 SECONDS Prothromb Time International Ratio 1.0 0.9-1.1 Sodium Level 129 136-145 mmol/L Potassium Level 4.1 3.5-5.1 mmol/L Chloride Level 98 98-107 mmol/L Carbon Dioxide Level 26 21-32 mmol/L Anion Gap 5.0 3-11 mmol/L Blood Urea Nitrogen 29 7-18 mg/dl Creatinine 1.29 0.60-1.40 mg/dl Est Creatinine Clear Calc Drug Dose 91.2 ml/min Estimated GFR () 83.3 Estimated GFR (Non- 71.9 BUN/Creatinine Ratio 22.5 10-20 Random Glucose 94 70-99 mg/dl Calcium Level 8.4 8.5-10.1 mg/dl Magnesium Level 1.6 1.8-2.4 mg/dl Total Bilirubin 0.4 0.2-1 mg/dl Direct Bilirubin 0.1 0-0.2 mg/dl Aspartate Amino Transf (AST/SGOT) 12 15-37 U/L Alanine Aminotransferase (ALT/SGPT) 25 12-78 U/L Alkaline Phosphatase 116 45-117 U/L C-Reactive Protein 16.90 0-0.29 mg/dl Total Protein 6.2 6.4-8.2 gm/dl Albumin 2.9 3.4-5.0 gm/dl Procalcitonin 0.48 0-0.5 ng/ml Bedside Lactic Acid Venous 0.39 0.90-1.70 mmol/L Influenza Type A (RT-PCR) Neg for Influ A NEG Influenza Type A Antigen Neg for Influ A NEG Influenza Type B Antigen Neg for Influ B NEG Influenza Type B (RT-PCR) Neg for Influ B NEG Urine Color YELLOW Urine Appearance CLEAR CLEAR Urine pH 5.0 4.5-7.5 Urine Specific Arnold 1.015 1.000-1.030 Urine Protein NEG NEG Urine Glucose (UA) NEG NEG Urine Ketones NEG NEG Urine Occult Blood NEG NEG Urine Nitrite NEG NEG Urine Bilirubin NEG NEG Urine Urobilinogen NEG NEG Urine Leukocyte Esterase NEG NEG Urine WBC (Auto) 1-5 0-5 /hpf Urine RBC (Auto) 0-4 0-4 /hpf Urine Hyaline Casts (Auto) 0 0-5 /lpf Urine Epithelial Cells (Auto) 5-10 0-5 /lpf Urine Bacteria (Auto) NEG NEG Microbiology Results 04/26/17 Blood Culture, Received Pending 04/26/17 Blood Culture, Received Pending CXR normal Impression Assessment and Plan The patient is a 32 year old male with B-cell lymphoma currently undergoing EPOCH-R plus Venclexta chemotherapy every 3 weeks with his most recent treatment being his fourth round that presents with neutropenic fever. Neutropenic fever - WBC 0.04 - Vancomycin and Cefepime --> Primary team will discuss with Oncology whether to add on Caspofungin for this course - Neutropenic precautions - Blood Cultures - Tylenol for fever - Continue home Acyclovin 800mg PO BID - Admit to Med/Surg Acute anemia (Hgb 6.4) - Transfusion of 2 units irradiated PRBC ordered - Repeat labs in AM B cell Lymphoma - Continue daily Venclexta with chemo regimen - Oncology consult - Patient oncologist at [facility] follows very closely and will most likely be in contact with primary team/ Dr. Craig regarding treatment - Continue Methadone (15mg q8h) Neuropathic Pain - Continue home Gabapentin 600mg PO TID Nausea - Continue home Zofran and Marinol for Nausea/ Appetite stimulation Anxiety - Continue home Ativan, as per previous notes given 30 minutes after Methadone Opioid-induced constipation - Currently not using home bowel regimen but ordered if needed - Dulcolax, Docusate, Senna DVT Prophylaxis - SCDs Code Status - Full Resuscitation Resident Physician Supervision Note: I was present with Dr. Enriquez during the history and exam. I discussed the case with the resident and agree with the findings and plan as documented in the note. Any exceptions or clarifications are listed here: 32 y/o M advanced B-cell lymphoma currently on trial chemo through [facility] - chronic anemia - presenting with neutropenic fever - no clear infection source Exam is per resident to avoid further exposing pt P: Was admitted with temp11/17 - no growth on culture at that time Started on Cefepime and Vanc due to Port Previously advised on empiric antifungal therapy which should be addressed with his MD at [facility] We have requested 2 units PRBC as his initial Hb is 6.4 Above discussed in detail with pt and resident Documented By: Valente Neri Level of Care Med/Surg Resuscitation Status FULL RESUSCITATION VTE Prophylaxis VTE Risk Assessment Done? Y/N: Yes Risk Level: Moderate Given or contraindicated: SCD's Resident Tracking Resident Involvement: Resident Care Provided Care Provided: Adult Hospital Medicine
[2017-04-26] MEDS: METHADONE HCL 10 MG TAB PO SCH ×3 (06:22→20:45)
--- NOTE | 2017-04-26 06:46 | DIAGNOSTIC IMAGING REPORT ---
CHEST ONE VIEW PORTABLE HISTORY: 32 years-old Male fever acute fever with history of cancer COMPARISON: Chest radiograph 03/12/2017, CT chest 02/25/2017 TECHNIQUE: Portable AP view of the chest FINDINGS: Cardiomediastinal and hilar silhouettes are within normal limits. Right internal jugular [id number] catheter is noted with distal tip terminating in the region of the SVC. There is no pneumothorax or pleural effusion. There is improved aeration of the lingula and left lower lobe from comparison. Linear subsegmental opacity noted within the lateral left midlung ingesting area of scarring. Persistent airspace opacity noted within the retrocardiac left lower lobe. Bones appear grossly intact. IMPRESSION: Improved aeration of the left lower lobe and lingula with linear subsegmental opacity in the lateral left midlung suggesting area of scarring. Persistent opacities noted within the retrocardiac left lower lobe. The above report was generated using voice recognition software. It may contain grammatical, syntax or spelling errors. Electronically signed by: Fredis Sal M.D. 04/26/2017 6:44 AM Dictated Date/Time: 04/26/2017 6:42 AM
[2017-04-26] MEDS ORDERED: MAGNESIUM SULFATE 1GM / D5W 1 GM in PREMIXED IN D5W 100 ML IV STA (07:48)
[2017-04-26] MEDS ORDERED: CEFPODOXIME PROXETIL PO SCH (08:00)
[2017-04-26] MEDS ORDERED: GABAPENTIN 600 MG TAB PO SCH (08:00)
[2017-04-26] MEDS ORDERED: DOCUSATE SODIUM 100 MG CAP PO SCH ×2 (08:00→21:00)
[2017-04-26] MEDS ORDERED: SENNA 8.6 MG TAB PO SCH (08:00)
[2017-04-26] MEDS ORDERED: ACYCLOVIR 400 MG TAB PO SCH (08:00)
[2017-04-26] MEDS ORDERED: NON-FORMULARY MEDICATION (Dexlansoprazole (Dexilant) 60 MG) PO SCH (08:00)
[2017-04-26] MEDS ORDERED: ESCITALOPRAM OXALATE 20 MG TAB PO SCH (08:00)
[2017-04-26] MEDS ORDERED: NON-FORMULARY MEDICATION (Cetirizine Hcl 1 TAB) PO SCH (08:00)
--- NOTE | 2017-04-26 08:08 | Family Medicine Progress Note ---
Progress Note Date of Service Apr 26, 2017. Subjective Pt evaluation today including: conversation w/ patient, physical exam, chart review, lab review, review of studies, review of inpatient medication list Voiding: no voiding problems 32 year old with B cell lymphoma known to me from previous admissions. Admission for pancytopenia and neutropenic fever. Temperature of 38.0 on admission but no temperature since. He has a cough for the past week productive of white phlegm but no other source of infection identified. Last round of chemotherapy was on the 12 April. He denies any shortness of breath, dizziness or chest pain with regards to his anemia. He denies any diarrhea or melena. All Other Systems: Reviewed and Negative Medications Current Inpatient Medications Medications (Trade) Dose Ordered Sig/Sidney Route Start Time Stop Time Status Last Admin Dose Admin Dronabinol (Marinol Cap) 5 mg TIDM PO 04/26/17 08:00 05/26/17 07:59 Lorazepam (Ativan Tab) 1 mg HS PO 04/26/17 21:00 05/26/17 20:59 Methadone HCl (Dolophine Tab) 15 mg Q8 PO 04/26/17 06:00 05/10/17 05:59 04/26/17 06:22 15 MG Oxycodone HCl (Roxicodone Immediate Rel Tab) 10 mg Q4 PRN PO 04/26/17 04:00 05/10/17 03:59 Non-Formulary Medication ([Magic Mouth Wash] ) 5 ml Q4H PO 04/26/17 04:00 05/26/17 03:59 Vancomycin HCl 1000 mg/Sodium Chloride 270 ml @ 125 mls/hr Q12 IV 04/26/17 10:30 04/28/17 10:29 UNV Miscellaneous Information (Order Awaiting Action) 1 ea QS N/A 04/26/17 08:00 05/26/17 07:59 Cetirizine HCl (zyrTEC TAB) 10 mg DAILY PO 04/26/17 08:00 05/26/17 07:59 Miscellaneous Information (Order Awaiting Action) 1 ea QS N/A 04/26/17 08:00 05/26/17 07:59 Miscellaneous Information (Order Awaiting Action) 1 ea QS N/A 04/26/17 08:00 05/26/17 07:59 Miscellaneous Information (Order Awaiting Action) 1 ea QS N/A 04/26/17 16:00 05/26/17 07:59 Senna (Senokot Tab) 17.2 mg AMHS PO 04/26/17 20:00 05/26/17 19:59 Acetaminophen (Tylenol Tab) 650 mg Q4H PRN PO 04/26/17 07:45 05/26/17 07:44 Acyclovir (Zovirax Tab) 800 mg BID PO 04/26/17 08:00 04/28/17 07:59 Al Hydrox/Mg Hydrox/Simethicone (Maalox Max Susp) 15 ml Q4H PRN PO 04/26/17 07:45 05/26/17 07:44 Bisacodyl (Dulcolax Tab) 10 mg HS PRN PO 04/26/17 07:45 05/26/17 07:44 Docusate Sodium (coLACE CAP) 100 mg QAM PO 04/26/17 08:00 05/26/17 07:59 Docusate Sodium (coLACE CAP) 200 mg HS PO 04/26/17 21:00 05/26/17 20:59 Escitalopram Oxalate (Lexapro Tab) 20 mg QAM PO 04/26/17 08:00 05/26/17 07:59 Gabapentin (Neurontin Tab) 600 mg TID PO 04/26/17 08:00 05/26/17 07:59 Magnesium Sulfate 1 gm/Prmx 100 ml @ 100 mls/hr NOW STAT IV 04/26/17 07:48 04/26/17 08:47 Magnesium Hydroxide (Milk Of Magnesia Susp) 30 ml Q6H PRN PO 04/26/17 08:00 05/26/17 07:59 Ondansetron HCl (Zofran Inj) 4 mg Q6H PRN IV 04/26/17 08:00 05/26/17 07:59 Heparin Sodium (Porcine) (Heparin 100 Unit/ml 5ml Flush) 5 ml PRN PRN IV 04/26/17 08:00 05/26/17 07:59 Cefepime HCl 2000 mg/Syringe 20 ml @ 5 mls/min Q8H IV 04/26/17 11:00 04/28/17 10:59 Objective Vital Signs Date Time Temp Pulse Resp B/P (MAP) Pulse Ox O2 Delivery O2 Flow Rate FiO2 04/26/17 07:52 36.6 77 16 111/54 (73) 100 Room Air 04/26/17 06:27 36.8 77 18 94/65 97 04/26/17 05:30 37.4 83 16 100/46 95 04/26/17 05:26 Room Air 04/26/17 05:15 83 16 100/46 95 04/26/17 05:11 88 16 100/61 96 04/26/17 05:00 38.0 88 16 100/61 95 04/26/17 04:45 86 16 113/55 96 04/26/17 04:30 38.0 89 16 103/47 95 04/26/17 04:17 38.4 83 16 96/48 96 Room Air 04/26/17 04:15 38.4 88 16 96/48 96 04/26/17 04:05 38.9 90 16 95/51 97 04/26/17 04:01 38.9 87 18 82/51 95 04/26/17 03:00 39.0 95 16 113/56 100 Room Air 04/26/17 02:06 39.4 116 18 108/53 98 Room Air Physical Exam General Appearance: no apparent distress, + thin Eyes: normal inspection, PERRL, EOMI ENT: hearing grossly normal, pharynx normal Neck: supple, no adenopathy, no JVD, no carotid bruits, trachea midline Respiratory/Chest: chest non-tender, lungs clear, normal breath sounds, no respiratory distress, no accessory muscle use Cardiovascular: regular rate, rhythm, no edema, no murmur Abdomen: normal bowel sounds, non tender, soft 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5) Mean Platelet Volume 8.8 fL (7.4-10.4) Prothrombin Time 10.4 SECONDS (9.0-12.0) Prothromb Time International Ratio 1.0 (0.9-1.1) Anion Gap 5.0 mmol/L (3-11) Est Creatinine Clear Calc Drug Dose 91.2 ml/min Estimated GFR () 83.3 Estimated GFR (Non- 71.9 BUN/Creatinine Ratio 22.5 (10-20) Calcium Level 8.4 mg/dl (8.5-10.1) Magnesium Level 1.6 mg/dl (1.8-2.4) Total Bilirubin 0.4 mg/dl (0.2-1) Direct Bilirubin 0.1 mg/dl (0-0.2) Aspartate Amino Transf (AST/SGOT) 12 U/L (15-37) Alanine Aminotransferase (ALT/SGPT) 25 U/L (12-78) Alkaline Phosphatase 116 U/L (45-117) C-Reactive Protein 16.90 mg/dl (0-0.29) Total Protein 6.2 gm/dl (6.4-8.2) Albumin 2.9 gm/dl (3.4-5.0) Procalcitonin 0.48 ng/ml (0-0.5) Bedside Lactic Acid Venous 0.39 mmol/L (0.90-1.70) Influenza Type A (RT-PCR) Neg for Influ A (NEG) Influenza Type A Antigen Neg for Influ A (NEG) Influenza Type B Antigen Neg for Influ B (NEG) Influenza Type B (RT-PCR) Neg for Influ B (NEG) Urine Color YELLOW Urine Appearance CLEAR (CLEAR) Urine pH 5.0 (4.5-7.5) Urine Specific [place] 1.015 (1.000-1.030) Urine Protein NEG (NEG) Urine Glucose (UA) NEG (NEG) Urine Ketones NEG (NEG) Urine Occult Blood NEG (NEG) Urine Nitrite NEG (NEG) Urine Bilirubin NEG (NEG) Urine Urobilinogen NEG (NEG) Urine Leukocyte Esterase NEG (NEG) Urine WBC (Auto) 1-5 /hpf (0-5) Urine RBC (Auto) 0-4 /hpf (0-4) Urine Hyaline Casts (Auto) 0 /lpf (0-5) Urine Epithelial Cells (Auto) 5-10 /lpf (0-5) Urine Bacteria (Auto) NEG (NEG) Assessment and Plan The patient is a 32 year old male with B-cell lymphoma currently undergoing EPOCH-R plus Venclexta chemotherapy every 3 weeks with his most recent treatment being his fourth round (started on Apr 12) that presents with neutropenic fever. Neutropenic fever - WBC 0.04 - Vancomycin and Cefepime - Neutropenic precautions - Blood Cultures pending - did not specify whether one was from port therefore will redraw another from his port - Tylenol for fever - Continue home Acyclovir 800mg PO BID Acute on chronic anemia (Hgb 6.4) - suspected secondary to chemotherapy - Transfusion of 2 units irradiated PRBC ordered - Repeat labs in AM B cell Lymphoma - Continue daily Venclexta with chemo regimen - Consult oncology - Patient oncologist at [facility] follows very closely and will most likely be in contact with primary team/ Dr. Craig regarding treatment - Continue Methadone (15mg q8h) - may need to be reduced if continued confusion despite treatment however given no respiratory depression or worsening renal function I do not suspect this is the cause of his confusion any more than just lack of sleep at this time. Neuropathic Pain - Continue home Gabapentin 600mg PO TID Nausea - Continue home Zofran and Marinol for Nausea/ Appetite stimulation Anxiety - Continue home Ativan, as per previous notes given 30 minutes after Methadone Opioid-induced constipation - Currently not using home bowel regimen but ordered if needed - Dulcolax, Docusate, Senna VTE Prophylaxis - SCDs - chremical prophylaxis deferred given young age and Plt 57. Code Status - Full Resuscitation Disposition - continue on med/surg due to need for IV Abx History Resident Physician Supervision Note: I was present with Dr. Garzon during the history and exam. I discussed the case with the resident and agree with the findings and plan as documented in the note. Any exceptions or clarifications are listed here. Pt eating on entry into room without issue. Oriented x 3, though speech is slow and garbled intermittently. Reports considerable pain w/ swallowing. Reports no fever, chills, MARINO, facial pain, n/v/d/c, CP/SOB, cough. 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 Continue acyclovir. Follow up cultures. Anemia, acute on chronic s/p 2u PRBC - trend CBC B-cell lymphoma - oncology consulted, recommendations appreciated - continue chemotherapy regimen and pain mgmt w/ methadone, marinol and Zofran Neuropathic pain - gabapentin Anxiety - continue ativan Constipation - continue bowel regimen VTE PPX - SCD FULL Code
[2017-04-26] MEDS ORDERED: VANCOMYCIN CONSULT ACTIVE PRN (08:45)
[2017-04-26 09:00] LABS: HEMATOCRIT 20.2 % (42-52); HEMOGLOBIN 6.9 g/dL (14.0-18.0); MEAN CELL VOLUME 85.2 fL (80-100); MEAN CORPUSCULAR HEMOGLOBIN 29.1 pg (25-34); MEAN CORPUSCULAR HGB CONC 34.2 g/dl (32-36); MEAN PLATELET VOLUME 8.8 fL (7.4-10.4); PLATELET COUNT 55 K/uL (130-400); RED CELL DISTRIBUTION WIDTH CV 16.5 % (11.5-14.5); RED CELL DISTRIBUTION WIDTH SD 50.1 fL (36.4-46.3); WHITE BLOOD COUNT 0.04 K/uL (4.8-10.8)
[2017-04-26] MEDS: ACYCLOVIR 400 MG TAB PO SCH ×2 (09:08→20:40)
[2017-04-26] MEDS: GABAPENTIN 600 MG TAB PO SCH ×3 (09:08→20:40)
[2017-04-26] MEDS: DRONABINOL 2.5 MG CAP PO SCH ×3 (09:08→17:25)
[2017-04-26] MEDS: DOCUSATE SODIUM 100 MG CAP PO SCH ×2 (09:09→20:39)
[2017-04-26] MEDS: CETIRIZINE HCL 10 MG TAB PO SCH (09:09)
[2017-04-26] MEDS: ESCITALOPRAM OXALATE 20 MG TAB PO SCH (09:09)
[2017-04-26] MEDS ORDERED: MAGNESIUM OXIDE 400 MG TAB PO ONE (10:08)
--- NOTE | 2017-04-26 10:18 | Oncology Consultation ---
Oncology/Heme Consultation Date of Consultation: Apr 26, 2017. Attending Physician: Valente Neri M.D. Reason for Consultation: History of refractory non-Hodgkin's lymphoma History of Present Illness Amparo John is a 32-year-old gentleman that has a history of large cell B cell non-Hodgkin's lymphoma. This was not felt to be a double hit lymphoma and he was originally treated with R CHOP. He had presented initially with inguinal adenopathy as well as a metastatic deposit within the liver. He was treated to remission but remission was very short. Afterwards he has been treated with salvage regimens but tumors have continued to progress. He is status post CART therapy as well as immunotherapy. His care is being coordinated primarily at [facility]. He is now finished his fourth cycle of R-EPOCH. He also receives daily Venetoclax. His last treatment was completed on April 17 and he states that he did receive Neulasta before leaving [place]. He presents now after developing fever last evening with severe neutropenia pancytopenia secondary to his therapy and disease. He denies shortness of breath. He denies really any chest pain. He describes an odd sort of abdominal discomfort in several areas that seem to be fleeting. He denies any change in bowel habits. He denies any headaches. Past Medical/Surgical History Medical Problems: (1) Acute kidney injury Status: Acute (2) Febrile neutropenia Status: Acute (3) Fever Status: Acute (4) Pancytopenia Status: Acute (5) Pancytopenia Status: Acute Family History Cancer Heart disease Social History Smoking Status: Never Smoker Drug Use: none Marital Status: Housing Status: lives with significant other Occupation Status: employed Allergies Coded Allergies: Erythromycin (Verified Adverse Reaction, Intermediate, GI SYMPTOMS, 04/26/17 ) Prochlorperazine (Verified Adverse Reaction, Unknown, change in mental status, 04/26/17) Home Medications Scheduled Acyclovir (Zovirax), 800 MG PO BID Cefpodoxime Proxetil (Cefpodoxime Proxetil), 1 TAB PO BID Cetirizine Hcl (Cetirizine Hcl), 1 TAB PO DAILY Dexlansoprazole (Dexilant), 60 MG PO QAM Docusate Sodium (Docusate Sodium), 100 MG PO QAM Docusate Sodium (Docusate Sodium), 200 MG PO HS Dronabinol (Marinol), 5 MG PO TIDM Escitalopram Oxalate (Lexapro), 20 MG PO QAM Gabapentin (Gabapentin), 600 MG PO TID Lorazepam (Ativan), 1 MG PO HS Methadone Hcl (Dolophine), 15 MG PO Q8 Phenol-Sodium Borate (Ulcerease), 15 ML PO Q6H Sennosides (Senna-Lax), 2 TABS PO AMHS Sulfa/Trimethoprim (Bactrim Ds 800MG/160MG), 1 TAB PO 3XWK Venetoclax (Venclexta), 12 TABS PO DAILY@1500 [Magic Mouth Wash], 5 ML PO Q4H Scheduled PRN Bisacodyl (Bisacodyl), 2 TAB PO HS PRN for Constipation Dexlansoprazole (Dexilant), 30 MG PO HS PRN for gerd Oxycodone Immediate Rel Tab (Roxicodone Ir), 10-15 MG PO Q4 PRN for Pain Current Inpatient Medications Current Inpatient Medications Medications (Trade) Dose Ordered Sig/Sidney Route Start Time Stop Time Status Last Admin Dose Admin Dronabinol (Marinol Cap) 5 mg TIDM PO 04/26/17 08:00 05/26/17 07:59 04/26/17 09:08 5 MG Lorazepam (Ativan Tab) 1 mg HS PO 04/26/17 21:00 05/26/17 20:59 Methadone HCl (Dolophine Tab) 15 mg Q8 PO 04/26/17 06:00 05/10/17 05:59 04/26/17 06:22 15 MG Oxycodone HCl (Roxicodone Immediate Rel Tab) 10 mg Q4 PRN PO 04/26/17 04:00 05/10/17 03:59 Non-Formulary Medication ([Magic Mouth Wash] ) 5 ml Q4H PO 04/26/17 04:00 05/26/17 03:59 Miscellaneous Information (Order Awaiting Action) 1 ea QS N/A 04/26/17 08:00 05/26/17 07:59 Cetirizine HCl (zyrTEC TAB) 10 mg DAILY PO 04/26/17 08:00 05/26/17 07:59 04/26/17 09:09 10 MG Miscellaneous Information (Order Awaiting Action) 1 ea QS N/A 04/26/17 08:00 05/26/17 07:59 Miscellaneous Information (Order Awaiting Action) 1 ea QS N/A 04/26/17 08:00 05/26/17 07:59 Miscellaneous Information (Order Awaiting Action) 1 ea QS N/A 04/26/17 16:00 05/26/17 07:59 Senna (Senokot Tab) 17.2 mg AMHS PO 04/26/17 20:00 05/26/17 19:59 Acetaminophen (Tylenol Tab) 650 mg Q4H PRN PO 04/26/17 07:45 05/26/17 07:44 Acyclovir (Zovirax Tab) 800 mg BID PO 04/26/17 08:00 04/28/17 07:59 04/26/17 09:08 800 MG Al Hydrox/Mg Hydrox/Simethicone (Maalox Max Susp) 15 ml Q4H PRN PO 04/26/17 07:45 05/26/17 07:44 Bisacodyl (Dulcolax Tab) 10 mg HS PRN PO 04/26/17 07:45 05/26/17 07:44 Docusate Sodium (coLACE CAP) 100 mg QAM PO 04/26/17 08:00 05/26/17 07:59 04/26/17 09:09 100 MG Docusate Sodium (coLACE CAP) 200 mg HS PO 04/26/17 21:00 05/26/17 20:59 Escitalopram Oxalate (Lexapro Tab) 20 mg QAM PO 04/26/17 08:00 05/26/17 07:59 04/26/17 09:09 20 MG Gabapentin (Neurontin Tab) 600 mg TID PO 04/26/17 08:00 05/26/17 07:59 04/26/17 09:08 600 MG Magnesium Hydroxide (Milk Of Magnesia Susp) 30 ml Q6H PRN PO 04/26/17 08:00 05/26/17 07:59 Ondansetron HCl (Zofran Inj) 4 mg Q6H PRN IV 04/26/17 08:00 05/26/17 07:59 Heparin Sodium (Porcine) (Heparin 100 Unit/ml 5ml Flush) 5 ml PRN PRN IV 04/26/17 08:00 05/26/17 07:59 Cefepime HCl 2000 mg/Syringe 20 ml @ 5 mls/min Q8H IV 04/26/17 11:00 04/28/17 10:59 Vancomycin HCl (Consult) 1 ea UD PRN N/A 04/26/17 08:45 05/26/17 08:44 Vancomycin HCl 1500 mg/Sodium Chloride 530 ml @ 200 mls/hr Q12H IV 04/26/17 09:00 04/28/17 08:59 Review of Systems Constitutional: Negative for weight loss or night sweats Eyes: Negative for event change of vision ENT: Negative for epistaxis, nasal discharge, sore throat, or deafness Cardiovascular: Negative for chest pain, palpitations, dizziness, diaphoresis Respiratory: Negative for new shortness of breath,hemoptysis, or purulent cough Gastrointestinal: Negative for diarrhea, hematemesis, melena, nausea, vomiting , or dyspepsia Integumentary (skin): Negative for rash or jaundice discoloration Genitourinary: Negative for urinary frequency, hematuria, or dysuria Neurological: Negative for weakness, seizure activity, headache, or dizziness Lymphatic/Hematologic: Negative for petechiae, bleeding or new adenopathy Musculoskeletal: Negative for new joint or back pain Allergic/Immunologic: Negative for unusual rash or pruritis. Physical Exam Date Time Temp Pulse Resp B/P (MAP) Pulse Ox O2 Delivery O2 Flow Rate FiO2 04/26/17 07:52 36.6 77 16 111/54 (73) 100 Room Air 04/26/17 06:27 36.8 77 18 94/65 97 04/26/17 05:30 37.4 83 16 100/46 95 04/26/17 05:26 Room Air 04/26/17 05:15 83 16 100/46 95 04/26/17 05:11 88 16 100/61 96 04/26/17 05:00 38.0 88 16 100/61 95 04/26/17 04:45 86 16 113/55 96 04/26/17 04:30 38.0 89 16 103/47 95 04/26/17 04:17 38.4 83 16 96/48 96 Room Air 04/26/17 04:15 38.4 88 16 96/48 96 04/26/17 04:05 38.9 90 16 95/51 97 04/26/17 04:01 38.9 87 18 82/51 95 04/26/17 03:00 39.0 95 16 113/56 100 Room Air 04/26/17 02:06 39.4 116 18 108/53 98 Room Air Constitutional: vitals are stable. Appears rather sluggish. He was up most of the evening having come to the emergency room last night. Alopecia delightful young man. Eyes: Eyes are BEBO EOMI without conjuctival erythema or icterus. ENT: External examination was negative for masses. Neck: Negative for masses or palpable thyromegaly Respiratory: Lung sounds were generally clear bilaterally Cardiovascular: Heart was RRR without significant murmur, gallops aoe rubs Gastrointestinal: No palpable hepatic or splenomegaly. The abdomen was soft although I did feel what might be of midline mass (fullness) but certainly difficult to be certain of that. Lymphatic system: there was no palpable peripheral lymphadenopathy Musculoskeletal System: The musculoskeletal system seemed concordant with age. Skin: The skin was negative for jaundice. Neurologic exam: The exam was negative for any focal findings. Deep tendon reflexes were equal and symmetrical. Psychiatric exam: Was essentially negative with normal mood and effect. Extremities: negative for edema Laboratory Results Last 24 Hours Test 04/26/17 02:36 04/26/17 02:39 04/26/17 03:00 04/26/17 03:14 White Blood Count 0.04 K/uL Red Blood Count 2.13 M/uL Hemoglobin 6.4 g/dL Hematocrit 18.3 % Mean Corpuscular Volume 85.9 fL Mean Corpuscular Hemoglobin 30.0 pg Mean Corpuscular Hemoglobin Concent 35.0 g/dl RDW Standard Deviation 54.2 fL RDW Coefficient of Variation 17.2 % Platelet Count 56 K/uL Mean Platelet Volume 8.8 fL Prothrombin Time 10.4 SECONDS Prothromb Time International Ratio 1.0 Sodium Level 129 mmol/L Potassium Level 4.1 mmol/L Chloride Level 98 mmol/L Carbon Dioxide Level 26 mmol/L Anion Gap 5.0 mmol/L Blood Urea Nitrogen 29 mg/dl Creatinine 1.29 mg/dl Est Creatinine Clear Calc Drug Dose 91.2 ml/min Estimated GFR () 83.3 Estimated GFR (Non- 71.9 BUN/Creatinine Ratio 22.5 Random Glucose 94 mg/dl Calcium Level 8.4 mg/dl Magnesium Level 1.6 mg/dl Total Bilirubin 0.4 mg/dl Direct Bilirubin 0.1 mg/dl Aspartate Amino Transf (AST/SGOT) 12 U/L Alanine Aminotransferase (ALT/SGPT) 25 U/L Alkaline Phosphatase 116 U/L C-Reactive Protein 16.90 mg/dl Total Protein 6.2 gm/dl Albumin 2.9 gm/dl Procalcitonin 0.48 ng/ml Bedside Lactic Acid Venous 0.39 mmol/L Influenza Type A (RT-PCR) Neg for Influ A Influenza Type A Antigen Neg for Influ A Influenza Type B Antigen Neg for Influ B Influenza Type B (RT-PCR) Neg for Influ B Urine Color YELLOW Urine Appearance CLEAR Urine pH 5.0 Urine Specific [place] 1.015 Urine Protein NEG Urine Glucose (UA) NEG Urine Ketones NEG Urine Occult Blood NEG Urine Nitrite NEG Urine Bilirubin NEG Urine Urobilinogen NEG Urine Leukocyte Esterase NEG Urine WBC (Auto) 1-5 /hpf Urine RBC (Auto) 0-4 /hpf Urine Hyaline Casts (Auto) 0 /lpf Urine Epithelial Cells (Auto) 5-10 /lpf Urine Bacteria (Auto) NEG Test 04/26/17 08:22 White Blood Count 0.04 K/uL Red Blood Count 2.37 M/uL Hemoglobin 6.9 g/dL Hematocrit 20.2 % Mean Corpuscular Volume 85.2 fL Mean Corpuscular Hemoglobin 29.1 pg Mean Corpuscular Hemoglobin Concent 34.2 g/dl RDW Standard Deviation 50.1 fL RDW Coefficient of Variation 16.5 % Platelet Count 55 K/uL Mean Platelet Volume 8.8 fL Assessment & Plan Refractory non-Hodgkin's lymphoma he is receiving R-EPOCH with daily oral Venetoclax (would not interrupt Venetoclax). He did receive Neulasta before leaving [place] a few days ago. Cultures are pending and antibiotics are ongoing. Supportive care will continue. Daily CBCs of course should be done he is currently being transfused. There is been no overt bleeding. Platelet number is stable enough that no platelet transfusion is necessary. All blood products given however should be irradiated.
[2017-04-26] MEDS ORDERED: CEFEPIME IV 2,000 MG in DEXTROSE 5% 100ML 100 ML IV SCH (10:30)
[2017-04-26] MEDS ORDERED: VANCOMYCIN INJ 1,000 MG in SODIUM CHLORIDE 0.9% 250ML 250 ML IV SCH (10:30)
[2017-04-26 11:58] LABS: HEMATOCRIT 23.8 % (42-52); HEMOGLOBIN 8.3 g/dL (14.0-18.0)
[2017-04-26] MEDS: VANCOMYCIN INJ 1,500 MG in SODIUM CHLORIDE 0.9% 500ML 500 ML IV SCH (13:22)
[2017-04-26] MEDS: CEFEPIME IV 2,000 MG in SYRINGE 7.5 ML IV SCH ×2 (13:22→19:14)
[2017-04-26] MEDS: BOOST VANILLA PO SCH ×2 (13:23→20:40)
[2017-04-26] MEDS: SODIUM CHLORIDE 0.9% 1000ML 1,000 ML IV SCH ×2 (13:59→21:29)
--- NOTE | 2017-04-26 14:21 | Pharmacy Progress Note ---
Pharmacy Abx Initial Consult Date of Service Apr 26, 2017. Pharmacy Dosing Scope Date of Consult: 04/26/17 Consultation requested by: Dr. Enriquez Pharmacy is consulted to initiate empiric Vancomycin IV dosing therapy, order appropriate labs and adjust drug dose/frequency. Subjective The patient is a 32 year old male admitted on Apr 26, 2017 at 03:59. Objective Height (Feet): 6 Height (Inches): 1.00 Weight (Kilograms): 91.600 Vital Signs (Past 12Hrs) Vital Signs Past 12 Hours Date Time Temp Pulse Resp B/P (MAP) Pulse Ox O2 Delivery O2 Flow Rate FiO2 04/26/17 10:00 36.6 76 18 92/58 04/26/17 09:30 36.8 79 18 97/57 04/26/17 09:00 37.0 83 17 96/61 04/26/17 08:45 36.8 85 16 93/54 04/26/17 08:00 Room Air 04/26/17 07:52 36.6 77 16 111/54 (73) 100 Room Air 04/26/17 06:27 36.8 77 18 94/65 97 04/26/17 05:30 37.4 83 16 100/46 95 04/26/17 05:26 Room Air 04/26/17 05:15 83 16 100/46 95 04/26/17 05:11 88 16 100/61 96 04/26/17 05:00 38.0 88 16 100/61 95 04/26/17 04:45 86 16 113/55 96 04/26/17 04:30 38.0 89 16 103/47 95 04/26/17 04:17 38.4 83 16 96/48 96 Room Air 04/26/17 04:15 38.4 88 16 96/48 96 04/26/17 04:05 38.9 90 16 95/51 97 04/26/17 04:01 38.9 87 18 82/51 95 04/26/17 03:00 39.0 95 16 113/56 100 Room Air Lab Results (24Hrs) Laboratory Tests (24 Hours) Test 04/26/17 02:36 04/26/17 08:22 C-Reactive Protein 16.90 mg/dl (0-0.29) H Procalcitonin 0.48 ng/ml (0-0.5) White Blood Count 0.04 K/uL (4.8-10.8) *L Micro Results Date/Time Source Procedure Growth Status 04/26/17 08:22 Blood Blood Culture Pending Received 04/26/17 02:36 Blood Blood Culture Pending Received 04/26/17 02:32 Blood Blood Culture Pending Received Risk Factors for Resistance * Hospitalization for 48 hours or more within the past 90 days: 2 admissions in 03/08 for neutropenic fever * Immunocompromised (chemotherapy for b-cell lymphoma) * Antimicrobial use within the last 90 days: treated with cefepime,vanco and levaquin in 03/08 for neutropenic fever Assessment & Plan Assessment 32 year old male with b-cell lymphoma undergoing chemotherapy every 3 weeks, admitted for neutropenic fever. * Pt treated with cefepime, vanc and levaquin in 03/08 * He had 2 hospital admissions in 03/08 for neutropenic fever * Blood cultures pending. * Estimated pk parameters: ke=0.08 t1/2=8hrs * Pt is also on cefepime 2gm q 8 hours Plan Vancomycin IV * Loading dose: 2000 mg (22 mg/kg) * Maintenance dose: 1500 mg IV (16 mg/kg) every 12 hours * Goal trough level for neutropenic fever : 15 to 20 mcg/mL * CONSULT IS FOR EMPIRIC TREATMENT, NO TROUGH LEVEL ORDERED * Trough level to be ordered if therapy is extended beyond 48hours. Pharmacy will continue to follow and will adjust dose/frequency as necessary. Thank you.
[2017-04-26] MEDS ORDERED: VENETOCLAX PO SCH (15:00)
[2017-04-26] MEDS ORDERED: MAGIC SWIZZLE PO PRN (15:00)
[2017-04-26] MEDS ORDERED: LIDOCAINE HCL 2% VISCOUS SOLN 60 ML, DiphenhydrAMINE HCL SYRUP 150 MG, ALUMINUM/MAGNESI... MT PRN ×4 (15:15)
[2017-04-26] MEDS: VENETOCLAX 100 MG TAB PO SCH (15:51)
[2017-04-26] MEDS: DEXAMETHASONE CONC SOLN 3.75 MG, NYSTATIN SUSP 30 ML, DiphenhydrAMINE HCL SYRUP 300 MG,... PO SCH ×10 (16:07→20:39)
[2017-04-26] MEDS: SENNA 8.6 MG TAB PO SCH (20:00)
[2017-04-26] MEDS: DEXLANSOPRAZOLE 30 MG PO SCH (20:38)
[2017-04-26] MEDS: LORAZEPAM 1 MG TAB PO SCH (20:40)
[2017-04-27] MEDS: VANCOMYCIN INJ 1,500 MG in SODIUM CHLORIDE 0.9% 500ML 500 ML IV SCH ×2 (02:46→14:39)
[2017-04-27] MEDS: CEFEPIME IV 2,000 MG in SYRINGE 7.5 ML IV SCH ×3 (04:33→17:32)
[2017-04-27] MEDS: SODIUM CHLORIDE 0.9% 1000ML 1,000 ML IV SCH ×2 (05:25→14:10)
[2017-04-27] MEDS: METHADONE HCL 10 MG TAB PO SCH ×3 (05:25→22:01)
[2017-04-27 07:16] LABS: HEMATOCRIT 23.1 % (42-52); HEMOGLOBIN 7.9 g/dL (14.0-18.0); MEAN CELL VOLUME 85.6 fL (80-100); MEAN CORPUSCULAR HEMOGLOBIN 29.3 pg (25-34); MEAN CORPUSCULAR HGB CONC 34.2 g/dl (32-36); MEAN PLATELET VOLUME 8.8 fL (7.4-10.4); PLATELET COUNT 80 K/uL (130-400); RED CELL DISTRIBUTION WIDTH CV 16.6 % (11.5-14.5); RED CELL DISTRIBUTION WIDTH SD 51.5 fL (36.4-46.3); WHITE BLOOD COUNT 0.09 K/uL (4.8-10.8)
[2017-04-27 07:22] LABS: ALBUMIN 2.6 gm/dl (3.4-5.0); CALCIUM 8.8 mg/dl (8.5-10.1); CREATININE 1.15 mg/dl (0.60-1.40); POTASSIUM 4.2 mmol/L (3.5-5.1); TOTAL PROTEIN 5.9 gm/dl (6.4-8.2)
[2017-04-27 07:24] VITALS: BMI 26.6
[2017-04-27 07:29] VITALS: BP 104/58; PULSE 73; TEMP 36.7; O2SAT 98
[2017-04-27] MEDS: ESCITALOPRAM OXALATE 20 MG TAB PO SCH (07:30)
[2017-04-27] MEDS: MAGNESIUM OXIDE 400 MG TAB PO SCH (07:30)
[2017-04-27] MEDS: CETIRIZINE HCL 10 MG TAB PO SCH (07:30)
[2017-04-27] MEDS: SENNA 8.6 MG TAB PO SCH ×2 (07:31→21:09)
[2017-04-27] MEDS: GABAPENTIN 600 MG TAB PO SCH ×3 (07:31→21:09)
[2017-04-27] MEDS: ACYCLOVIR 400 MG TAB PO SCH ×2 (07:31→21:09)
[2017-04-27] MEDS: DEXLANSOPRAZOLE 60 MG CAPDR PO SCH (07:33)
[2017-04-27] MEDS: BOOST VANILLA PO SCH ×3 (07:33→20:00)
[2017-04-27] MEDS: DOCUSATE SODIUM 100 MG CAP PO SCH ×2 (07:34→21:08)
[2017-04-27] MEDS: DEXAMETHASONE CONC SOLN 3.75 MG, NYSTATIN SUSP 30 ML, DiphenhydrAMINE HCL SYRUP 300 MG,... PO SCH ×10 (07:37→11:29)
[2017-04-27] MEDS: DRONABINOL 2.5 MG CAP PO SCH ×3 (07:37→17:32)
--- NOTE | 2017-04-27 09:59 | Family Medicine Progress Note ---
Progress Note Date of Service Apr 27, 2017. Subjective Pt evaluation today including: conversation w/ patient, physical exam, chart review, lab review, review of studies, conversation w/ service delivery consultant (Dr Craig), review of inpatient medication list Patient feels his confusion has improved today. Still having an intermittent non productive cough but not getting worse. Worse symptom is his mouth ulcers. No fever or chills All Other Systems: Reviewed and Negative Medications Current Inpatient Medications Medications (Trade) Dose Ordered Sig/Sidney Route Start Time Stop Time Status Last Admin Dose Admin Dronabinol (Marinol Cap) 5 mg TIDM PO 04/26/17 08:00 05/26/17 07:59 04/27/17 07:37 5 MG Lorazepam (Ativan Tab) 1 mg HS PO 04/26/17 21:00 05/26/17 20:59 04/26/17 20:40 1 MG Methadone HCl (Dolophine Tab) 15 mg Q8 PO 04/26/17 06:00 05/10/17 05:59 04/27/17 05:25 15 MG Oxycodone HCl (Roxicodone Immediate Rel Tab) 10 mg Q4 PRN PO 04/26/17 04:00 05/10/17 03:59 Miscellaneous Information (Order Awaiting Action) 1 ea QS N/A 04/26/17 08:00 05/26/17 07:59 Cetirizine HCl (zyrTEC TAB) 10 mg DAILY PO 04/26/17 08:00 05/26/17 07:59 04/27/17 07:30 10 MG Miscellaneous Information (Order Awaiting Action) 1 ea QS N/A 04/26/17 08:00 05/26/17 07:59 Senna (Senokot Tab) 17.2 mg AMHS PO 04/26/17 20:00 05/26/17 19:59 04/27/17 07:31 17.2 MG Acetaminophen (Tylenol Tab) 650 mg Q4H PRN PO 04/26/17 07:45 05/26/17 07:44 Acyclovir (Zovirax Tab) 800 mg BID PO 04/26/17 08:00 04/28/17 07:59 04/27/17 07:31 800 MG Al Hydrox/Mg Hydrox/Simethicone (Maalox Max Susp) 15 ml Q4H PRN PO 04/26/17 07:45 05/26/17 07:44 Bisacodyl (Dulcolax Tab) 10 mg HS PRN PO 04/26/17 07:45 05/26/17 07:44 Docusate Sodium (coLACE CAP) 100 mg QAM PO 04/26/17 08:00 05/26/17 07:59 04/27/17 07:34 100 MG Docusate Sodium (coLACE CAP) 200 mg HS PO 04/26/17 21:00 05/26/17 20:59 04/26/17 20:39 200 MG Escitalopram Oxalate (Lexapro Tab) 20 mg QAM PO 04/26/17 08:00 05/26/17 07:59 04/27/17 07:30 20 MG Gabapentin (Neurontin Tab) 600 mg TID PO 04/26/17 08:00 05/26/17 07:59 04/27/17 07:31 600 MG Magnesium Hydroxide (Milk Of Magnesia Susp) 30 ml Q6H PRN PO 04/26/17 08:00 05/26/17 07:59 Ondansetron HCl (Zofran Inj) 4 mg Q6H PRN IV 04/26/17 08:00 05/26/17 07:59 Heparin Sodium (Porcine) (Heparin 100 Unit/ml 5ml Flush) 5 ml PRN PRN IV 04/26/17 08:00 05/26/17 07:59 Cefepime HCl 2000 mg/Syringe 20 ml @ 5 mls/min Q8H IV 04/26/17 11:00 04/28/17 10:59 04/27/17 04:33 5 MLS/MIN Vancomycin HCl (Consult) 1 ea UD PRN N/A 04/26/17 08:45 05/26/17 08:44 Vancomycin HCl 1500 mg/Sodium Chloride 530 ml @ 200 mls/hr Q12H IV 04/26/17 09:00 04/28/17 08:59 04/27/17 02:46 200 MLS/HR Magnesium Oxide (Mag-Ox Tab) 400 mg QAM PO 04/27/17 08:00 05/27/17 07:59 04/27/17 07:30 400 MG Enteral Nutritional Formula (Boost) 1 can TID PO 04/26/17 14:00 05/26/17 13:59 04/27/17 07:33 1 CAN Sodium Chloride 1,000 ml @ 125 mls/hr Q8H IV 04/26/17 13:45 05/26/17 13:44 04/27/17 05:25 125 MLS/HR Venetoclax (Venclexta) 1,200 mg DAILY@1500 PO 04/26/17 15:00 05/26/17 14:59 04/26/17 15:51 1,200 MG Dexlansoprazole (Dexilant Dr) 30 mg HS PO 04/26/17 21:00 05/26/17 20:59 Dexlansoprazole (Dexilant Dr) 60 mg QAM PO 04/27/17 08:00 05/27/17 07:59 04/27/17 07:33 60 MG Dexamethasone/ Nystatin/ Diphenhydramine HCl/Sucrose/ Microcrystalline Cellulose/Barcode Q4HWA PO 04/26/17 16:00 05/26/17 15:59 04/27/17 07:37 5 ML Objective Vital Signs Date Time Temp Pulse Resp B/P (MAP) Pulse Ox O2 Delivery O2 Flow Rate FiO2 04/27/17 08:41 Room Air 04/27/17 07:29 36.7 73 20 104/58 (73) 98 Room Air 04/27/17 00:00 Room Air 04/26/17 23:08 36.4 77 18 102/62 (75) 100 Room Air 04/26/17 19:58 36.0 78 18 99/63 (75) 100 Room Air 04/26/17 17:46 Room Air 04/26/17 15:55 36.1 80 16 96/59 (71) 98 04/26/17 10:00 36.6 76 18 92/58 Physical Exam General Appearance: WD/WN, no apparent distress Eyes: normal inspection Respiratory/Chest: lungs clear, normal breath sounds, no respiratory distress, no accessory muscle use Cardiovascular: regular rate, rhythm, no murmur Abdomen: non tender, soft Extremities: no pedal edema, normal capillary refill Neurologic/Psychiatric: no motor/sensory deficits, alert (mild confusion persists), oriented x 3 Skin: normal color, warm/dry, no rash, + pertinent finding (port sign clean dry intact, no sign of cellulitis) Laboratory Results 04/27/17 05:34 04/27/17 05:34 Test 04/27/17 05:34 Red Blood Count 2.70 M/uL (4.7-6.1) Mean Corpuscular Volume 85.6 fL (80-100) Mean Corpuscular Hemoglobin 29.3 pg (25-34) Mean Corpuscular Hemoglobin Concent 34.2 g/dl (32-36) RDW Standard Deviation 51.5 fL (36.4-46.3) RDW Coefficient of Variation 16.6 % (11.5-14.5) Mean Platelet Volume 8.8 fL (7.4-10.4) Anion Gap 5.0 mmol/L (3-11) Est Creatinine Clear Calc Drug Dose 102.3 ml/min Estimated GFR () 95.7 Estimated GFR (Non- 82.6 BUN/Creatinine Ratio 22.1 (10-20) Calcium Level 8.8 mg/dl (8.5-10.1) Total Bilirubin 0.7 mg/dl (0.2-1) Aspartate Amino Transf (AST/SGOT) 15 U/L (15-37) Alanine Aminotransferase (ALT/SGPT) 24 U/L (12-78) Alkaline Phosphatase 117 U/L (45-117) C-Reactive Protein 18.90 mg/dl (0-0.29) Total Protein 5.9 gm/dl (6.4-8.2) Albumin 2.6 gm/dl (3.4-5.0) Globulin 3.3 gm/dl (2.5-4.0) Albumin/Globulin Ratio 0.8 (0.9-2) Assessment and Plan 32 year old male with B-cell lymphoma currently undergoing EPOCH-R plus Venclexta chemotherapy every 3 weeks with his most recent treatment being his fourth round (started on Apr 12) that presents with neutropenic fever now with gram negative bacilli. Neutropenic fever - WBC 0.09 - Vancomycin and Cefepime - Neutropenic precautions - Blood Cultures pending - gram negative bacilli in 2/2 and gram positive cocci in 1/2 - Tylenol for fever - Continue home Acyclovir 800mg PO BID Acute on chronic anemia (Hgb 7.9) - secondary to chemotherapy - Hbg stable s/p 2 units blood transfusion - monitor B cell Lymphoma - Continue daily Venclexta with chemo regimen - Appreciate oncology management - Dr Craig. Will contact Dr Sosa later today. - Continue Methadone 15mg q8h for pain relief as mental status has improved. Neuropathic Pain - Continue home Gabapentin 600mg PO TID Nausea - Continue home Zofran and Marinol for Nausea/ Appetite stimulation Anxiety - Continue home Ativan, as per previous notes given 30 minutes after Methadone Opioid-induced constipation - Currently not using home bowel regimen but ordered if needed - Dulcolax, Docusate, Senna VTE Prophylaxis - SCDs - chemical prophylaxis deferred given young age and Plt 57. Code Status - Full Resuscitation Disposition - continue on med/surg due to need for IV Abx Gram negative bacilli and gram positive cocci growing in blood cultures WBC mildly improving d/w Dr Conde last night regarding Abx and advised to keep on vanc and cefepime are appropriate consult ID D/w oncology, ID and his [place] oncologist regarding possible need for port removal. History Resident Physician Supervision Note: I was present with Dr. Garzon during the history and exam. I discussed the case with the resident and agree with the findings and plan as documented in the note. Any exceptions or clarifications are listed here. Pt reports improvement in fatigue and slurring of speech. Obtained Dr. Sosa's number to coordinate care regarding upcoming studies and chemotherapy. Reports no fever, MARINO, lightheadedness, n/v, CP/SOB, palptiations General Appearance: WD/WN, no apparent distress Respiratory: chest non-tender, lungs clear, normal breath sounds, no respiratory distress Cardiovascular: normal peripheral pulses, regular rate, rhythm, no murmur Assessment/Plan 32 y/o male h/o B-cell lymphoma undergoing chemotherapy w/ neurtropenic fever Abnormal speech - improving - close monitoring with low threshold for imaging - pt reports this is normal for him when heavily fatigued Neutropenic fever - Infectious disease and Oncology consulted - covering w/ vancomycin and cefepime. Continue acyclovir. Follow up culture/sensitivity Anemia, acute on chronic s/p 2u PRBC - trend CBC B-cell lymphoma - oncology consulted, recommendations appreciated - continue chemotherapy regimen and pain mgmt w/ methadone, marinol and Zofran Neuropathic pain - gabapentin Anxiety - continue ativan Constipation - continue bowel regimen VTE PPX - SCD FULL Code
--- NOTE | 2017-04-27 11:52 | Hematology/Oncology Prog Note ---
Hematology/Onc Progress Note Date of Service Apr 27, 2017. Diagnoses Refactory non-Hodgkin's lymphoma Pancytopenia secondary to therapy Gram-negative sepsis Medications Medications Administered Medications (Trade) Dose Ordered Sig/Sidney Route Start Time Stop Time Status Last Admin Dose Admin Acetaminophen (Tylenol Tab) 1,000 mg NOW STAT PO 04/26/17 02:23 04/26/17 02:28 DC 04/26/17 02:45 1,000 MG Vancomycin HCl 2000 mg/Sodium Chloride 290 ml @ 125 mls/hr NOW STAT IV 04/26/17 02:23 04/26/17 04:42 DC 04/26/17 02:46 125 MLS/HR Oseltamivir Phosphate (Tamiflu Cap) 75 mg NOW STAT PO 04/26/17 02:23 04/26/17 02:28 DC 04/26/17 02:45 75 MG Cefepime HCl 2000 mg/Dextrose 122 ml @ 200 mls/hr NOW STAT IV 04/26/17 02:23 04/26/17 02:59 DC 04/26/17 02:46 200 MLS/HR Dronabinol (Marinol Cap) 5 mg TIDM PO 04/26/17 08:00 05/26/17 07:59 04/27/17 11:31 5 MG Lorazepam (Ativan Tab) 1 mg HS PO 04/26/17 21:00 05/26/17 20:59 04/26/17 20:40 1 MG Methadone HCl (Dolophine Tab) 15 mg Q8 PO 04/26/17 06:00 05/10/17 05:59 04/27/17 05:25 15 MG Cetirizine HCl (zyrTEC TAB) 10 mg DAILY PO 04/26/17 08:00 05/26/17 07:59 04/27/17 07:30 10 MG Senna (Senokot Tab) 17.2 mg AMHS PO 04/26/17 20:00 05/26/17 19:59 04/27/17 07:31 17.2 MG Acyclovir (Zovirax Tab) 800 mg BID PO 04/26/17 08:00 04/28/17 07:59 04/27/17 07:31 800 MG Docusate Sodium (coLACE CAP) 100 mg QAM PO 04/26/17 08:00 05/26/17 07:59 04/27/17 07:34 100 MG Docusate Sodium (coLACE CAP) 200 mg HS PO 04/26/17 21:00 05/26/17 20:59 04/26/17 20:39 200 MG Escitalopram Oxalate (Lexapro Tab) 20 mg QAM PO 04/26/17 08:00 05/26/17 07:59 04/27/17 07:30 20 MG Gabapentin (Neurontin Tab) 600 mg TID PO 04/26/17 08:00 05/26/17 07:59 04/27/17 07:31 600 MG Magnesium Sulfate 1 gm/Prmx 100 ml @ 100 mls/hr NOW STAT IV 04/26/17 07:48 04/26/17 08:47 DC 04/26/17 10:55 100 MLS/HR Cefepime HCl 2000 mg/Syringe 20 ml @ 5 mls/min Q8H IV 04/26/17 11:00 04/28/17 10:59 04/27/17 11:29 5 MLS/MIN Vancomycin HCl 1500 mg/Sodium Chloride 530 ml @ 200 mls/hr Q12H IV 04/26/17 09:00 04/28/17 08:59 04/27/17 02:46 200 MLS/HR Magnesium Oxide (Mag-Ox Tab) 400 mg QAM PO 04/27/17 08:00 05/27/17 07:59 04/27/17 07:30 400 MG Magnesium Oxide (Mag-Ox Tab) 400 mg 1008 ONCE PO 04/26/17 10:08 04/26/17 10:21 DC 04/26/17 12:04 400 MG Enteral Nutritional Formula (Boost) 1 can TID PO 04/26/17 14:00 05/26/17 13:59 04/27/17 07:33 1 CAN Sodium Chloride 1,000 ml @ 125 mls/hr Q8H IV 04/26/17 13:45 05/26/17 13:44 04/27/17 05:25 125 MLS/HR Venetoclax (Venclexta) 1,200 mg DAILY@1500 PO 04/26/17 15:00 05/26/17 14:59 04/26/17 15:51 1,200 MG Dexlansoprazole (Dexilant Dr) 60 mg QAM PO 04/27/17 08:00 05/27/17 07:59 04/27/17 07:33 60 MG Dexamethasone/ Nystatin/ Diphenhydramine HCl/Sucrose/ Microcrystalline Cellulose/Barcode Q4HWA PO 04/26/17 16:00 05/26/17 15:59 04/27/17 11:29 5 ML Subjective Complains of pain oral mucosa sore but otherwise seems comfortable. He has been afebrile. Denies new shortness of breath or change in bowel habits. There has been no overt bleeding. Review of Systems: Constitutional: Negative for fever Eyes: Negative for event change of vision ENT: Negative for epistaxis, nasal discharge, sore throat, or deafness. Complains of a mouth sore - right side sublingual Cardiovascular: Negative for chest pain, palpitations, dizziness, diaphoresis Respiratory: Negative for new shortness of breath,hemoptysis, or purulent cough Gastrointestinal: Negative for diarrhea, hematemesis, melena, nausea, vomiting , or dyspepsia Integumentary (skin): Negative for rash or jaundice discoloration Neurological: Negative for weakness, seizure activity, headache, or dizziness Lymphatic/Hematologic: Negative for petechiae, bleeding or new adenopathy Musculoskeletal: Negative for new joint or back pain Allergic/Immunologic: Negative for unusual rash or pruritis. Vital Signs Vital Signs Past 12 Hours Date Time Temp Pulse Resp B/P (MAP) Pulse Ox O2 Delivery O2 Flow Rate FiO2 04/27/17 08:41 Room Air 04/27/17 07:29 36.7 73 20 104/58 (73) 98 Room Air 04/27/17 00:00 Room Air Physical Exam Constitutional: vitals are stable. Eyes: Eyes are BEBO EOMI without conjuctival erythema or icterus. ENT: External examination was negative for masses, Clean based small right sublingual ulcer. Neck: Negative for masses or palpable thyromegaly Respiratory: Lung sounds were generally clear bilaterally Cardiovascular: Heart was RRR without significant murmur, gallops aoe rubs Lymphatic system: there was no palpable peripheral lymphadenopathy Musculoskeletal System: The musculoskeletal system seemed concordant with age. Skin: The skin was negative for jaundice. Neurologic exam: The exam was negative for any focal findings. Deep tendon reflexes were equal and symmetrical. Psychiatric exam: Was essentially negative with normal mood and effect. Extremities: Negative for edema Laboratory Last 24 Hours Test 04/26/17 11:52 04/27/17 05:34 Hemoglobin 8.3 g/dL 7.9 g/dL Hematocrit 23.8 % 23.1 % White Blood Count 0.09 K/uL Red Blood Count 2.70 M/uL Mean Corpuscular Volume 85.6 fL Mean Corpuscular Hemoglobin 29.3 pg Mean Corpuscular Hemoglobin Concent 34.2 g/dl RDW Standard Deviation 51.5 fL RDW Coefficient of Variation 16.6 % Platelet Count 80 K/uL Mean Platelet Volume 8.8 fL Sodium Level 138 mmol/L Potassium Level 4.2 mmol/L Chloride Level 107 mmol/L Carbon Dioxide Level 26 mmol/L Anion Gap 5.0 mmol/L Blood Urea Nitrogen 25 mg/dl Creatinine 1.15 mg/dl Est Creatinine Clear Calc Drug Dose 102.3 ml/min Estimated GFR () 95.7 Estimated GFR (Non- 82.6 BUN/Creatinine Ratio 22.1 Random Glucose 98 mg/dl Calcium Level 8.8 mg/dl Total Bilirubin 0.7 mg/dl Aspartate Amino Transf (AST/SGOT) 15 U/L Alanine Aminotransferase (ALT/SGPT) 24 U/L Alkaline Phosphatase 117 U/L C-Reactive Protein 18.90 mg/dl Total Protein 5.9 gm/dl Albumin 2.6 gm/dl Globulin 3.3 gm/dl Albumin/Globulin Ratio 0.8 Assessment & Plan Gram-negative bacilli found in the blood. Dr. Conde is visiting with the patient. Sensitivities are still pending. One of the issues would be whether to remove the port. He has been afebrile. Again sensitivities are still pending. As the discussion in the room evolved, our plans are to await sensitivities and continue antibiotics. I suspect during next week he will be transferred to [facility] for continued antibiotics as well as to receive his PET scan, as decisions will be then pending concerning further therapy, port removal, etc.
--- NOTE | 2017-04-27 12:38 | Medical Consult ---
Consultation Date of Consultation: Apr 27, 2017. Attending Physician: Daron West MD Reason for Consultation: Gram-negative bacteremia in patient with neutropenic fever History of Present Illness 32-year-old male well known to me from recent hospitalization with history of aggressive lymphoma, on salvage chemotherapy, with bouts of neutropenia, who was re-admitted to the hospital with 1 week of cough, and 1 day of fever and chills. He was found again to be significantly neutropenic, was started empirically on vancomycin and cefepime. Blood cultures today now reported positive for gram-negative bacilli in 2 sets, and strep in 1 set, likely drawn from his a port. Patient reportedly had some confusion prior to admission, but this has improved. Complaining of slightly painful right tongue ulceration. Also with mild sore throat. No significant cough, no diarrhea, no abdominal pain. Past Medical/Surgical History Medical Problems: (1) Acute kidney injury Status: Acute (2) Febrile neutropenia Status: Acute (3) Fever Status: Acute (4) Pancytopenia Status: Acute (5) Pancytopenia Status: Acute Medical Problems: (1) Anemia (2) GERD (gastroesophageal reflux disease) (3) Lymphoma (4) Neutropenic fever (5) Sore throat Surgical Problems: (1) History of liver biopsy Family History Cancer Heart disease Social History Smoking Status: Never Smoker Drug Use: none Marital Status: Housing Status: lives with significant other Occupation Status: employed Allergies Coded Allergies: Erythromycin (Verified Adverse Reaction, Intermediate, GI SYMPTOMS, 04/26/17 ) Prochlorperazine (Verified Adverse Reaction, Unknown, change in mental status, 04/26/17) Current Inpatient Medications Current Inpatient Medications Medications (Trade) Dose Ordered Sig/Sidney Route Start Time Stop Time Status Last Admin Dose Admin Dronabinol (Marinol Cap) 5 mg TIDM PO 04/26/17 08:00 05/26/17 07:59 04/27/17 11:31 5 MG Lorazepam (Ativan Tab) 1 mg HS PO 04/26/17 21:00 05/26/17 20:59 04/26/17 20:40 1 MG Methadone HCl (Dolophine Tab) 15 mg Q8 PO 04/26/17 06:00 05/10/17 05:59 04/27/17 05:25 15 MG Oxycodone HCl (Roxicodone Immediate Rel Tab) 10 mg Q4 PRN PO 04/26/17 04:00 05/10/17 03:59 Miscellaneous Information (Order Awaiting Action) 1 ea QS N/A 04/26/17 08:00 05/26/17 07:59 Cetirizine HCl (zyrTEC TAB) 10 mg DAILY PO 04/26/17 08:00 05/26/17 07:59 04/27/17 07:30 10 MG Miscellaneous Information (Order Awaiting Action) 1 ea QS N/A 04/26/17 08:00 05/26/17 07:59 Senna (Senokot Tab) 17.2 mg AMHS PO 04/26/17 20:00 05/26/17 19:59 04/27/17 07:31 17.2 MG Acetaminophen (Tylenol Tab) 650 mg Q4H PRN PO 04/26/17 07:45 05/26/17 07:44 Acyclovir (Zovirax Tab) 800 mg BID PO 04/26/17 08:00 04/28/17 07:59 04/27/17 07:31 800 MG Al Hydrox/Mg Hydrox/Simethicone (Maalox Max Susp) 15 ml Q4H PRN PO 04/26/17 07:45 05/26/17 07:44 Bisacodyl (Dulcolax Tab) 10 mg HS PRN PO 04/26/17 07:45 05/26/17 07:44 Docusate Sodium (coLACE CAP) 100 mg QAM PO 04/26/17 08:00 05/26/17 07:59 04/27/17 07:34 100 MG Docusate Sodium (coLACE CAP) 200 mg HS PO 04/26/17 21:00 05/26/17 20:59 04/26/17 20:39 200 MG Escitalopram Oxalate (Lexapro Tab) 20 mg QAM PO 04/26/17 08:00 05/26/17 07:59 04/27/17 07:30 20 MG Gabapentin (Neurontin Tab) 600 mg TID PO 04/26/17 08:00 05/26/17 07:59 04/27/17 07:31 600 MG Magnesium Hydroxide (Milk Of Magnesia Susp) 30 ml Q6H PRN PO 04/26/17 08:00 05/26/17 07:59 Ondansetron HCl (Zofran Inj) 4 mg Q6H PRN IV 04/26/17 08:00 05/26/17 07:59 Heparin Sodium (Porcine) (Heparin 100 Unit/ml 5ml Flush) 5 ml PRN PRN IV 04/26/17 08:00 05/26/17 07:59 Cefepime HCl 2000 mg/Syringe 20 ml @ 5 mls/min Q8H IV 04/26/17 11:00 05/10/17 10:59 04/27/17 11:29 5 MLS/MIN Vancomycin HCl (Consult) 1 ea UD PRN N/A 04/26/17 08:45 05/26/17 08:44 Vancomycin HCl 1500 mg/Sodium Chloride 530 ml @ 200 mls/hr Q12H IV 04/26/17 09:00 05/10/17 08:59 04/27/17 02:46 200 MLS/HR Magnesium Oxide (Mag-Ox Tab) 400 mg QAM PO 04/27/17 08:00 05/27/17 07:59 04/27/17 07:30 400 MG Enteral Nutritional Formula (Boost) 1 can TID PO 04/26/17 14:00 05/26/17 13:59 04/27/17 07:33 1 CAN Sodium Chloride 1,000 ml @ 125 mls/hr Q8H IV 04/26/17 13:45 05/26/17 13:44 04/27/17 05:25 125 MLS/HR Venetoclax (Venclexta) 1,200 mg DAILY@1500 PO 04/26/17 15:00 05/26/17 14:59 04/26/17 15:51 1,200 MG Dexlansoprazole (Dexilant Dr) 30 mg HS PO 04/26/17 21:00 05/26/17 20:59 Dexlansoprazole (Dexilant Dr) 60 mg QAM PO 04/27/17 08:00 05/27/17 07:59 04/27/17 07:33 60 MG Dexamethasone/ Nystatin/ Diphenhydramine HCl/Sucrose/ Microcrystalline Cellulose/Barcode Q4HWA PO 04/26/17 16:00 05/26/17 15:59 04/27/17 11:29 5 ML Review of Systems All systems were reviewed and are negative except as per HPI Physical Exam Date Time Temp Pulse Resp B/P (MAP) Pulse Ox O2 Delivery O2 Flow Rate FiO2 04/27/17 08:41 Room Air 04/27/17 07:29 36.7 73 20 104/58 (73) 98 Room Air 04/27/17 00:00 Room Air 04/26/17 23:08 36.4 77 18 102/62 (75) 100 Room Air 04/26/17 19:58 36.0 78 18 99/63 (75) 100 Room Air 04/26/17 17:46 Room Air 04/26/17 15:55 36.1 80 16 96/59 (71) 98 General Appearance: WD/WN, no apparent distress Head: normocephalic, atraumatic Eyes: normal inspection, EOMI, sclerae normal ENT: hearing grossly normal, pharynx normal, + pertinent finding (Shallow clean right sublingual ulceration, no significant erythema) Neck: supple, no adenopathy, thyroid normal, no carotid bruits, trachea midline Respiratory/Chest: chest non-tender, lungs clear, normal breath sounds, no respiratory distress Cardiovascular: regular rate, rhythm, no gallop, no murmur Abdomen/GI: normal bowel sounds, non tender, soft, no organomegaly Back: normal inspection, no CVA tenderness Extremities/Musculoskelatal: no calf tenderness, non-tender Neurologic/Psych: alert, oriented x 3 Skin: normal color, warm/dry, no rash, + pertinent finding (No obvious infection of a port) Lymphatic: no adenopathy Laboratory Results RUN DATE: 04/27/17 [facility] LAB PAGE 1 RUN TIME: 1150 Specimen Inquiry PATIENT: ADALGISA HOWELL LOC: Juan C U # : [id number] AGE/SX: 32/M ROOM: 17 REG : 04/26/[address]: Daron West, : 1985 BED: 1 DIS : STATUS: ADM IN TLOC: SPEC #: [id number] TIFFANY: 04/26/17 STATUS: RES REQ #: [id number] RECD: 04/26/[address]: Adalgisa Staples M.D. SOURCE: BLOOD ENTR: 04/26/17 [facility] DR: Dorian Franz M.D. [facility]: ORDERED: BLOOD CULTURE Procedure Result Verified Site BLD CULT Preliminary 04/27/17-1150 Organism 1 ALPHA STREP. NOT ENTEROCOCCUS SENS SENSITIVITIES DEPENDENT ON FURTHER IDENTIFICATION Organism 2 GRAM NEGATIVE BACILLI SENS NO SENSITIVITY TO FOLLOW PLEASE SEE CULTURE NUMBER [id number] FOR SENSITIVITIES. Phoned Positive Blood Culture Gram Stain Report to JEANNA JOHNSON on 04/26/17 At 1611 By [facility]. Results were verbalized back to [facility]. Last 24 Hours Test 04/27/17 05:34 White Blood Count 0.09 K/uL Red Blood Count 2.70 M/uL Hemoglobin 7.9 g/dL Hematocrit 23.1 % Mean Corpuscular Volume 85.6 fL Mean Corpuscular Hemoglobin 29.3 pg Mean Corpuscular Hemoglobin Concent 34.2 g/dl RDW Standard Deviation 51.5 fL RDW Coefficient of Variation 16.6 % Platelet Count 80 K/uL Mean Platelet Volume 8.8 fL Sodium Level 138 mmol/L Potassium Level 4.2 mmol/L Chloride Level 107 mmol/L Carbon Dioxide Level 26 mmol/L Anion Gap 5.0 mmol/L Blood Urea Nitrogen 25 mg/dl Creatinine 1.15 mg/dl Est Creatinine Clear Calc Drug Dose 102.3 ml/min Estimated GFR () 95.7 Estimated GFR (Non- 82.6 BUN/Creatinine Ratio 22.1 Random Glucose 98 mg/dl Calcium Level 8.8 mg/dl Total Bilirubin 0.7 mg/dl Aspartate Amino Transf (AST/SGOT) 15 U/L Alanine Aminotransferase (ALT/SGPT) 24 U/L Alkaline Phosphatase 117 U/L C-Reactive Protein 18.90 mg/dl Total Protein 5.9 gm/dl Albumin 2.6 gm/dl Globulin 3.3 gm/dl Albumin/Globulin Ratio 0.8 HISTORY: 32 years-old Male fever acute fever with history of cancer COMPARISON: Chest radiograph 03/12/2017, CT chest 02/25/2017 TECHNIQUE: Portable AP view of the chest FINDINGS: Cardiomediastinal and hilar silhouettes are within normal limits. Right internal jugular [id number] catheter is noted with distal tip terminating in the region of the SVC. There is no pneumothorax or pleural effusion. There is improved aeration of the lingula and left lower lobe from comparison. Linear subsegmental opacity noted within the lateral left midlung ingesting area of scarring. Persistent airspace opacity noted within the retrocardiac left lower lobe. Bones appear grossly intact. IMPRESSION: Improved aeration of the left lower lobe and lingula with linear subsegmental opacity in the lateral left midlung suggesting area of scarring. Persistent opacities noted within the retrocardiac left lower lobe. The above report was generated using voice Assessment & Plan 32-year-old male with aggressive lymphoma now with gram-negative bacteremia in the setting of neutropenia and indwelling a port, with other culture positive for strep of unclear significance. Recommend continuing patient for now on vancomycin and cefepime, obtain follow-up blood cultures to ensure clearance of bacteremia. Will need to consider removal of his a port given the presence of gram-negative bacteremia. However, will hold off on this decision until discussion with his oncologist at the [facility]. Likely we will need to transfer him sometime next week to [facility] as he is due to receive further chemotherapy. Will adjust antibiotics once final culture results are available. Discussed with Dr. Craig. Will follow.
[2017-04-27] MEDS ORDERED: VANCOMYCIN TROUGH ONE (13:30)
[2017-04-27] MEDS: VENETOCLAX 100 MG TAB PO SCH (14:41)
[2017-04-27] MEDS ORDERED: MAGIC SWIZZLE PO ONE (14:51)
[2017-04-27 15:14] VITALS: BP 100/63; PULSE 75; TEMP 36.3; O2SAT 98
[2017-04-27] MEDS: LIDOCAINE HCL 2% VISCOUS SOLN 60 ML, DiphenhydrAMINE HCL SYRUP 150 MG, ALUMINUM/MAGNESI... MT SCH ×8 (16:05→21:07)
--- NOTE | 2017-04-27 17:26 | Progress Note ---
Progress Note Date of Service Apr 27, 2017. Progress Note Discussed case with Dr Craig, Dr Conde and Dr Sosa. Plan Unlikely he will be able to get his PET scan as an inpatient therefore no need to transfer. Await blood culture results and sensitivities and possibly may be able to go on oral Abx and discharged otherwise try to select IV Abx as an outpatient. Blood cultures will be repeated in morning. To continue on IV vancomycin and cefepime until cultures back. Patient and his father updated with plan.
[2017-04-27] MEDS ORDERED: MAGIC SWIZZLE PO SCH (20:00)
[2017-04-27 20:12] VITALS: BP 110/71; PULSE 85; TEMP 36.2; O2SAT 99
[2017-04-27] MEDS: DEXLANSOPRAZOLE 30 MG PO SCH (21:00)
[2017-04-27] MEDS: TRIAMCINOLONE ACET 0.1% ORABASE 5 GM TUBE MT SCH (21:08)
[2017-04-27] MEDS: LORAZEPAM 1 MG TAB PO SCH (21:14)
[2017-04-27 23:26] VITALS: BP 99/59; PULSE 71; TEMP 36.5; O2SAT 95
[2017-04-28] MEDS: CEFEPIME IV 2,000 MG in SYRINGE 7.5 ML IV SCH ×3 (03:17→17:32)
[2017-04-28 03:22] VITALS: BP 123/79; PULSE 70; TEMP 36.6; O2SAT 98
[2017-04-28] MEDS ORDERED: VANCOMYCIN INJ 1,500 MG in SODIUM CHLORIDE 0.9% 500ML 500 ML IV SCH (06:00)
[2017-04-28] MEDS: METHADONE HCL 10 MG TAB PO SCH ×3 (06:20→22:07)
[2017-04-28 06:34] VITALS: BMI 26.8
[2017-04-28 06:39] LABS: HEMATOCRIT 24.7 % (42-52); HEMOGLOBIN 8.5 g/dL (14.0-18.0); MEAN CELL VOLUME 85.8 fL (80-100); MEAN CORPUSCULAR HEMOGLOBIN 29.5 pg (25-34); MEAN CORPUSCULAR HGB CONC 34.4 g/dl (32-36); MEAN PLATELET VOLUME 9.5 fL (7.4-10.4); PLATELET COUNT 117 K/uL (130-400); RED CELL DISTRIBUTION WIDTH CV 16.8 % (11.5-14.5); WHITE BLOOD COUNT 0.15 K/uL (4.8-10.8)
[2017-04-28 06:46] LABS: ALBUMIN 2.7 gm/dl (3.4-5.0); CALCIUM 9.3 mg/dl (8.5-10.1); CREATININE 1.24 mg/dl (0.60-1.40); POTASSIUM 4.5 mmol/L (3.5-5.1)
[2017-04-28 06:48] LABS: TOTAL PROTEIN 6.4 gm/dl (6.4-8.2)
[2017-04-28 07:55] VITALS: BP 100/63; PULSE 74; TEMP 36.5; O2SAT 96
[2017-04-28] MEDS: DEXLANSOPRAZOLE 60 MG CAPDR PO SCH (08:04)
[2017-04-28] MEDS: LIDOCAINE HCL 2% VISCOUS SOLN 60 ML, DiphenhydrAMINE HCL SYRUP 150 MG, ALUMINUM/MAGNESI... MT SCH ×12 (08:04→21:23)
[2017-04-28] MEDS: BOOST VANILLA PO SCH ×3 (08:05→21:23)
[2017-04-28] MEDS: SENNA 8.6 MG TAB PO SCH ×2 (08:05→21:24)
[2017-04-28] MEDS: ESCITALOPRAM OXALATE 20 MG TAB PO SCH (08:05)
[2017-04-28] MEDS: GABAPENTIN 600 MG TAB PO SCH ×3 (08:05→21:24)
[2017-04-28] MEDS: DOCUSATE SODIUM 100 MG CAP PO SCH ×2 (08:05→21:25)
[2017-04-28] MEDS: MAGNESIUM OXIDE 400 MG TAB PO SCH (08:05)
[2017-04-28] MEDS: CETIRIZINE HCL 10 MG TAB PO SCH (08:06)
[2017-04-28] MEDS: TRIAMCINOLONE ACET 0.1% ORABASE 5 GM TUBE MT SCH ×3 (08:06→21:23)
[2017-04-28] MEDS: DRONABINOL 2.5 MG CAP PO SCH ×3 (08:11→17:32)
--- NOTE | 2017-04-28 09:23 | Family Medicine Progress Note ---
Progress Note Date of Service Apr 28, 2017. Subjective Pt evaluation today including: conversation w/ patient, physical exam, chart review, lab review, review of studies, conversation w/ analytical consultant (Sheila Craig ), review of inpatient medication list Patient reports having some rectal pain on bowel movements and feels an external lump on his anus since last night. Denies any fevers or chills. Mild non productive cough. Feels his mental status is improving. All Other Systems: Reviewed and Negative Medications Current Inpatient Medications Medications (Trade) Dose Ordered Sig/Sidney Route Start Time Stop Time Status Last Admin Dose Admin Dronabinol (Marinol Cap) 5 mg TIDM PO 04/26/17 08:00 05/26/17 07:59 04/28/17 08:11 5 MG Lorazepam (Ativan Tab) 1 mg HS PO 04/26/17 21:00 05/26/17 20:59 04/27/17 21:14 1 MG Methadone HCl (Dolophine Tab) 15 mg Q8 PO 04/26/17 06:00 05/10/17 05:59 04/28/17 06:20 15 MG Oxycodone HCl (Roxicodone Immediate Rel Tab) 10 mg Q4 PRN PO 04/26/17 04:00 05/10/17 03:59 Miscellaneous Information (Order Awaiting Action) 1 ea QS N/A 04/26/17 08:00 05/26/17 07:59 Cetirizine HCl (zyrTEC TAB) 10 mg DAILY PO 04/26/17 08:00 05/26/17 07:59 04/28/17 08:06 10 MG Miscellaneous Information (Order Awaiting Action) 1 ea QS N/A 04/26/17 08:00 05/26/17 07:59 Senna (Senokot Tab) 17.2 mg AMHS PO 04/26/17 20:00 05/26/17 19:59 04/28/17 08:05 17.2 MG Acetaminophen (Tylenol Tab) 650 mg Q4H PRN PO 04/26/17 07:45 05/26/17 07:44 Al Hydrox/Mg Hydrox/Simethicone (Maalox Max Susp) 15 ml Q4H PRN PO 04/26/17 07:45 05/26/17 07:44 Bisacodyl (Dulcolax Tab) 10 mg HS PRN PO 04/26/17 07:45 05/26/17 07:44 Docusate Sodium (coLACE CAP) 100 mg QAM PO 04/26/17 08:00 05/26/17 07:59 04/28/17 08:05 100 MG Docusate Sodium (coLACE CAP) 200 mg HS PO 04/26/17 21:00 05/26/17 20:59 04/27/17 21:08 200 MG Escitalopram Oxalate (Lexapro Tab) 20 mg QAM PO 04/26/17 08:00 05/26/17 07:59 04/28/17 08:05 20 MG Gabapentin (Neurontin Tab) 600 mg TID PO 04/26/17 08:00 05/26/17 07:59 04/28/17 08:05 600 MG Magnesium Hydroxide (Milk Of Magnesia Susp) 30 ml Q6H PRN PO 04/26/17 08:00 05/26/17 07:59 Ondansetron HCl (Zofran Inj) 4 mg Q6H PRN IV 04/26/17 08:00 05/26/17 07:59 Heparin Sodium (Porcine) (Heparin 100 Unit/ml 5ml Flush) 5 ml PRN PRN IV 04/26/17 08:00 05/26/17 07:59 04/27/17 14:44 5 ML Cefepime HCl 2000 mg/Syringe 20 ml @ 5 mls/min Q8H IV 04/26/17 11:00 05/10/17 10:59 04/28/17 03:17 5 MLS/MIN Vancomycin HCl (Consult) 1 ea UD PRN N/A 04/26/17 08:45 05/26/17 08:44 Magnesium Oxide (Mag-Ox Tab) 400 mg QAM PO 04/27/17 08:00 05/27/17 07:59 04/28/17 08:05 400 MG Enteral Nutritional Formula (Boost) 1 can TID PO 04/26/17 14:00 05/26/17 13:59 04/28/17 08:05 1 CAN Venetoclax (Venclexta) 1,200 mg DAILY@1500 PO 04/26/17 15:00 05/26/17 14:59 04/27/17 14:41 1,200 MG Dexlansoprazole (Dexilant Dr) 30 mg HS PO 04/26/17 21:00 05/26/17 20:59 Dexlansoprazole (Dexilant Dr) 60 mg QAM PO 04/27/17 08:00 05/27/17 07:59 04/28/17 08:04 60 MG Triamcinolone Acetonide (Triamcinolone Dental Paste) 1 appln TID MT 04/27/17 20:00 05/27/17 19:59 04/28/17 08:06 1 APPLN Lidocaine HCl/ Diphenhydramine HCl/Al Hydroxide/ Mg Hydroxide/ Glycerin/Barcode TID MT 04/27/17 15:00 05/27/17 14:59 04/28/17 08:04 5 ML Vancomycin HCl 1500 mg/Sodium Chloride 530 ml @ 200 mls/hr Q14H IV 04/28/17 06:00 05/10/17 05:59 04/28/17 06:14 200 MLS/HR Objective Vital Signs Date Time Temp Pulse Resp B/P (MAP) Pulse Ox O2 Delivery O2 Flow Rate FiO2 04/28/17 08:25 Room Air 04/28/17 07:55 36.5 74 18 100/63 (75) 96 04/28/17 03:22 36.6 70 18 123/79 (94) 98 Room Air 04/28/17 00:00 Room Air 04/27/17 23:26 36.5 71 18 99/59 (72) 95 Room Air 04/27/17 20:12 36.2 85 20 110/71 (84) 99 Room Air 04/27/17 20:00 Room Air 04/27/17 15:17 Room Air 04/27/17 15:14 36.3 75 18 100/63 (75) 98 Physical Exam General Appearance: WD/WN, no apparent distress Respiratory/Chest: + pertinent finding (deferred examination of chest and abdomen given improvement in symptoms and do not wish to expose him to any further infections) Abdomen: + pertinent finding (small pustule in 3 'o' clock position 1 cm away from anus with surrounding erythema, painful to touch) Neurologic/Psychiatric: alert, oriented x 3 Skin: + pertinent finding (port site appears clean and dry without surrounding signs of infection) Laboratory Results 04/28/17 05:31 04/28/17 05:31 Test 04/27/17 14:37 04/28/17 05:31 Vancomycin Level Trough 23.0 mcg/ml (SEE COMMENT) Red Blood Count 2.88 M/uL (4.7-6.1) Mean Corpuscular Volume 85.8 fL (80-100) Mean Corpuscular Hemoglobin 29.5 pg (25-34) Mean Corpuscular Hemoglobin Concent 34.4 g/dl (32-36) RDW Standard Deviation 52.0 fL (36.4-46.3) RDW Coefficient of Variation 16.8 % (11.5-14.5) Mean Platelet Volume 9.5 fL (7.4-10.4) Anion Gap 4.0 mmol/L (3-11) Est Creatinine Clear Calc Drug Dose 94.8 ml/min Estimated GFR () 87.4 Estimated GFR (Non- 75.4 BUN/Creatinine Ratio 19.3 (10-20) Calcium Level 9.3 mg/dl (8.5-10.1) Total Bilirubin 0.5 mg/dl (0.2-1) Aspartate Amino Transf (AST/SGOT) 13 U/L (15-37) Alanine Aminotransferase (ALT/SGPT) 26 U/L (12-78) Alkaline Phosphatase 133 U/L (45-117) Total Protein 6.4 gm/dl (6.4-8.2) Albumin 2.7 gm/dl (3.4-5.0) Globulin 3.7 gm/dl (2.5-4.0) Albumin/Globulin Ratio 0.7 (0.9-2) Assessment and Plan 32 year old male with B-cell lymphoma currently undergoing EPOCH-R plus Venclexta chemotherapy every 3 weeks with his most recent treatment being his fourth round (started on Apr 12) that presents with neutropenic fever now with gram negative bacilli. Neutropenic fever - WBC 0.15 improving - Continue Vancomycin and Cefepime pending ID recommendations - Neutropenic precautions - Blood Cultures pending - gram negative bacilli (Citrobacter) in 2/2 ( sensitivities noted) and gram positive cocci in 1/2 - Tylenol for fever - Continue home Acyclovir 800mg PO BID Perianal pustule - unlikely source of infection although not clear if this represents a fistula he denies ever having a fistula previously - discussed with Dr West and initially will investigate with US Acute on chronic anemia (Hgb 7.9) - secondary to chemotherapy - Hbg stable s/p 2 units blood transfusion - monitor Hgb B cell Lymphoma - Continue daily Venclexta with chemo regimen - Appreciate oncology management - Dr Craig - Continue Methadone 15mg q8h for pain relief as mental status has improved. Neuropathic Pain - Continue home Gabapentin 600mg PO TID Nausea - Continue home Zofran and Marinol for Nausea/ Appetite stimulation Anxiety - Continue home Ativan, as per previous notes given 30 minutes after Methadone Opioid-induced constipation - Currently not using home bowel regimen but ordered if needed - Dulcolax, Docusate, Senna VTE Prophylaxis - SCDs - Start lovenox 40 mg SQ daily as Plt have improved Code Status - Full Resuscitation Disposition - continue on med/surg due to need for IV Abx Resident Tracking Resident Involvement: Resident Care Provided Care Provided: Adult [facility] Medicine History Resident Physician Supervision Note: I was present with Dr. Garzon during the history and exam. I discussed the case with the resident and agree with the findings and plan as documented in the note. Any exceptions or clarifications are listed here. Pt c/o perianal pain which is new since last night (over the course of 2 BM) in the setting of recent gluteal acne which has been mild. Reports improving fatigue/confusion. Reports no f/c, n/v, diarrhea, abd pain. General Appearance: WD/WN, no apparent distress Respiratory: chest non-tender, lungs clear, normal breath sounds, no respiratory distress Cardiovascular: normal peripheral pulses, regular rate, rhythm, no murmur Gastrointestinal: normal bowel sounds, other (3 o'clock perianal lesion with skin peeling and focal head with some fluctuance) Assessment/Plan 32 y/o male h/o B-cell lymphoma undergoing chemotherapy w/ neurtropenic fever Perianal lesion - small abscess but concerning for fistula considering location - US complete, d/w oncology team and will defer acute mgmt for now Neutropenic fever - Infectious disease and Oncology consulted - covering w/ vancomycin and cefepime. Continue acyclovir. Follow up culture/sensitivity Anemia, acute on chronic s/p 2u PRBC - trend CBC Abnormal speech - improving - close monitoring with low threshold for imaging - pt reports this is normal for him when heavily fatigued B-cell lymphoma - oncology consulted, recommendations appreciated - continue chemotherapy regimen and pain mgmt w/ methadone, marinol and Zofran Neuropathic pain - gabapentin Anxiety - continue ativan Constipation - continue bowel regimen VTE PPX - SCD FULL Code
[2017-04-28] MEDS ORDERED: ENOXAPARIN 40 MG/0.4 ML SYR SQ ONE (09:46)
--- NOTE | 2017-04-28 11:28 | Pharmacy Progress Note ---
Pharmacy Abx Dose Short Note Date of Service Apr 28, 2017. Assessment & Plan Assessment 32 year old male receiving vancomycin & cefepime for treatment of gm neg bacteremia in 2 samples & alpha strep in one blood sample Day # 3 of antimicrobial therapy. Lymphoma patient with neutropenia, possible infected A-port. Plan Vancomycin * Trough level of 23 mcg/mL on 04/27 is supratherapeutic. * Change to 1500 mg IV every 14 hours * Goal trough level for bacteremia : 15 to 20 mcg/mL * Trough or random level ordered for: 04/28, ordered 1 hour prior to scheduled 2000 dose to allow time for processing/evaluation. Would like to confirm that the adjusted dosing interval of 14 hrs is appropriate. Pharmacy will continue to follow and will adjust dose/frequency as necessary. Thank you.
--- NOTE | 2017-04-28 12:11 | DIAGNOSTIC IMAGING REPORT ---
EXTREMITY NONVASCULAR LIMITED CLINICAL HISTORY: external 3 'o' clock pus collection ?fistula ?size COMPARISON STUDY: PET/CT January 16, 2016. FINDINGS: Note is made of a 0.7 x 0.4 cm hypoechoic right buttock/perianal/perirectal abnormality which may reflect a small abscess. This is suboptimally assessed by ultrasound. This contains mobile debris. Adjacent soft tissues appear hyperemic. IMPRESSION: 7 mm x 4 mm right buttock/perirectal hypoechoic abnormality which contains mobile debris. Although suboptimally assessed by ultrasound, this may reflect an abscess. Electronically signed by: Anderson Randhawa M.D. 04/28/2017 12:10 PM Dictated Date/Time: 04/28/2017 12:08 PM
[2017-04-28] MEDS ORDERED: OPTIRAY 320 IV PRN (12:30)
--- NOTE | 2017-04-28 13:09 | DIAGNOSTIC IMAGING REPORT ---
CT OF THE PELVIS WITHOUT CONTRAST CLINICAL HISTORY: pus/collection in 3 'o' clock positioning ?fistula ?abscess COMPARISON STUDY: Hepatic/perirectal ultrasound performed earlier today and PET/CT January 16, 2016. TECHNIQUE: Axial images of the pelvis were obtained without IV contrast as ordered. FINDINGS: Trace fluid within the pelvis is noted. No perirectal/perianal abscess is identified by CT. The possible abnormality shown on ultrasound performed earlier today is not identified on this unenhanced examination. Caliber of visualized small and large bowel are normal. Bladder is unremarkable on this examination. An erosive appearance of the medial left iliac bone is new since PET/CT of January 16, 2016. There is no pelvic lymphadenopathy. 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 Possible previous right inguinal hernia repair with mesh is noted. IMPRESSION: 1. No perianal/perirectal abscess identified on unenhanced CT. The possible abnormality shown on ultrasound performed earlier today is not visualized on this exam. 2. Erosive appearance of the medial left iliac bone, a nonspecific finding which has developed since PET/CT of January 16, 2016. 3. Trace fluid within the pelvis. 4. Trace subcutaneous gas within the right anterior abdominal wall. This could be correlated with recent subcutaneous injections. Electronically signed by: Anderson Randhawa M.D. 04/28/2017 1:08 PM Dictated Date/Time: 04/28/2017 12:59 PM
--- NOTE | 2017-04-28 15:05 | Hematology/Oncology Prog Note ---
Hematology/Onc Progress Note Date of Service Apr 28, 2017. Diagnoses Refactory non-Hodgkin's lymphoma Pancytopenia secondary to therapy Gram-negative sepsis Medications Medications Administered Medications (Trade) Dose Ordered Sig/Sidney Route Start Time Stop Time Status Last Admin Dose Admin Acetaminophen (Tylenol Tab) 1,000 mg NOW STAT PO 04/26/17 02:23 04/26/17 02:28 DC 04/26/17 02:45 1,000 MG Vancomycin HCl 2000 mg/Sodium Chloride 290 ml @ 125 mls/hr NOW STAT IV 04/26/17 02:23 04/26/17 04:42 DC 04/26/17 02:46 125 MLS/HR Oseltamivir Phosphate (Tamiflu Cap) 75 mg NOW STAT PO 04/26/17 02:23 04/26/17 02:28 DC 04/26/17 02:45 75 MG Cefepime HCl 2000 mg/Dextrose 122 ml @ 200 mls/hr NOW STAT IV 04/26/17 02:23 04/26/17 02:59 DC 04/26/17 02:46 200 MLS/HR Dronabinol (Marinol Cap) 5 mg TIDM PO 04/26/17 08:00 05/26/17 07:59 04/28/17 11:12 5 MG Lorazepam (Ativan Tab) 1 mg HS PO 04/26/17 21:00 05/26/17 20:59 04/27/17 21:14 1 MG Methadone HCl (Dolophine Tab) 15 mg Q8 PO 04/26/17 06:00 05/10/17 05:59 04/28/17 13:50 15 MG Cetirizine HCl (zyrTEC TAB) 10 mg DAILY PO 04/26/17 08:00 05/26/17 07:59 04/28/17 08:06 10 MG Senna (Senokot Tab) 17.2 mg AMHS PO 04/26/17 20:00 05/26/17 19:59 04/28/17 08:05 17.2 MG Acyclovir (Zovirax Tab) 800 mg BID PO 04/26/17 08:00 04/28/17 07:59 DC 04/27/17 21:09 800 MG Docusate Sodium (coLACE CAP) 100 mg QAM PO 04/26/17 08:00 05/26/17 07:59 04/28/17 08:05 100 MG Docusate Sodium (coLACE CAP) 200 mg HS PO 04/26/17 21:00 05/26/17 20:59 04/27/17 21:08 200 MG Escitalopram Oxalate (Lexapro Tab) 20 mg QAM PO 04/26/17 08:00 05/26/17 07:59 04/28/17 08:05 20 MG Gabapentin (Neurontin Tab) 600 mg TID PO 04/26/17 08:00 05/26/17 07:59 04/28/17 13:51 600 MG Magnesium Sulfate 1 gm/Prmx 100 ml @ 100 mls/hr NOW STAT IV 04/26/17 07:48 04/26/17 08:47 DC 04/26/17 10:55 100 MLS/HR Heparin Sodium (Porcine) (Heparin 100 Unit/ml 5ml Flush) 5 ml PRN PRN IV 04/26/17 08:00 05/26/17 07:59 04/27/17 14:44 5 ML Cefepime HCl 2000 mg/Syringe 20 ml @ 5 mls/min Q8H IV 04/26/17 11:00 05/10/17 10:59 04/28/17 11:07 5 MLS/MIN Vancomycin HCl 1500 mg/Sodium Chloride 530 ml @ 200 mls/hr Q12H IV 04/26/17 09:00 04/27/17 16:31 DC 04/27/17 14:39 200 MLS/HR Magnesium Oxide (Mag-Ox Tab) 400 mg QAM PO 04/27/17 08:00 05/27/17 07:59 04/28/17 08:05 400 MG Magnesium Oxide (Mag-Ox Tab) 400 mg 1008 ONCE PO 04/26/17 10:08 04/26/17 10:21 DC 04/26/17 12:04 400 MG Enteral Nutritional Formula (Boost) 1 can TID PO 04/26/17 14:00 04/28/17 13:39 DC 04/28/17 08:05 1 CAN Sodium Chloride 1,000 ml @ 125 mls/hr Q8H IV 04/26/17 13:45 04/27/17 14:48 DC 04/27/17 14:10 125 MLS/HR Venetoclax (Venclexta) 1,200 mg DAILY@1500 PO 04/26/17 15:00 05/26/17 14:59 04/27/17 14:41 1,200 MG Dexlansoprazole (Dexilant Dr) 60 mg QAM PO 04/27/17 08:00 05/27/17 07:59 04/28/17 08:04 60 MG Dexamethasone/ Nystatin/ Diphenhydramine HCl/Sucrose/ Microcrystalline Cellulose/Barcode Q4HWA PO 04/26/17 16:00 04/27/17 14:52 DC 04/27/17 11:29 5 ML Triamcinolone Acetonide (Triamcinolone Dental Paste) 1 appln TID MT 04/27/17 20:00 05/27/17 19:59 04/28/17 13:51 1 APPLN Lidocaine HCl/ Diphenhydramine HCl/Al Hydroxide/ Mg Hydroxide/ Glycerin/Barcode TID MT 04/27/17 15:00 05/27/17 14:59 04/28/17 13:51 5 ML Vancomycin HCl 1500 mg/Sodium Chloride 530 ml @ 200 mls/hr Q14H IV 04/28/17 06:00 05/10/17 05:59 04/28/17 06:14 200 MLS/HR Enoxaparin Sodium (Lovenox Inj) 40 mg 0946 ONCE SQ 04/28/17 09:46 04/28/17 09:50 DC 04/28/17 11:10 40 MG Enteral Nutritional Formula (Boost) 1 can TID PO 04/28/17 14:00 05/28/17 13:59 04/28/17 13:50 1 CAN Subjective He seems to be doing well. A perianal probable early abscess is been noted. His overall blood counts seem stable if not beginning to recover. There has been no overt bleeding. Remaining review of systems is unremarkable. He is afebrile Vital Signs Vital Signs Past 12 Hours Date Time Temp Pulse Resp B/P (MAP) Pulse Ox O2 Delivery O2 Flow Rate FiO2 04/28/17 08:25 Room Air 04/28/17 07:55 36.5 74 18 100/63 (75) 96 04/28/17 03:22 36.6 70 18 123/79 (94) 98 Room Air Physical Exam Constitutional: vitals are stable. Eyes: Eyes are BEBO EOMI without conjuctival erythema or icterus. ENT: External examination was negative for masses. Neck: Negative for masses or palpable thyromegaly Respiratory: Lung sounds were generally clear bilaterally Cardiovascular: Heart was RRR without significant murmur, gallops aoe rubs Gastrointestinal: No palpable hepatic or splenomegaly. The abdomen was soft with normal bowel sounds. Lymphatic system: there was no palpable peripheral lymphadenopathy Musculoskeletal System: The musculoskeletal system seemed concordant with age. Skin: The skin was negative for jaundice. Neurologic exam: The exam was negative for any focal findings. Deep tendon reflexes were equal and symmetrical. Psychiatric exam: Was essentially negative with normal mood and effect. Perirectal/perianal area has an early small folliculitis/small pustule Laboratory Last 24 Hours Test 04/28/17 05:31 White Blood Count 0.15 K/uL Red Blood Count 2.88 M/uL Hemoglobin 8.5 g/dL Hematocrit 24.7 % Mean Corpuscular Volume 85.8 fL Mean Corpuscular Hemoglobin 29.5 pg Mean Corpuscular Hemoglobin Concent 34.4 g/dl RDW Standard Deviation 52.0 fL RDW Coefficient of Variation 16.8 % Platelet Count 117 K/uL Mean Platelet Volume 9.5 fL Sodium Level 137 mmol/L Potassium Level 4.5 mmol/L Chloride Level 106 mmol/L Carbon Dioxide Level 27 mmol/L Anion Gap 4.0 mmol/L Blood Urea Nitrogen 24 mg/dl Creatinine 1.24 mg/dl Est Creatinine Clear Calc Drug Dose 94.8 ml/min Estimated GFR () 87.4 Estimated GFR (Non- 75.4 BUN/Creatinine Ratio 19.3 Random Glucose 92 mg/dl Calcium Level 9.3 mg/dl Total Bilirubin 0.5 mg/dl Aspartate Amino Transf (AST/SGOT) 13 U/L Alanine Aminotransferase (ALT/SGPT) 26 U/L Alkaline Phosphatase 133 U/L Total Protein 6.4 gm/dl Albumin 2.7 gm/dl Globulin 3.7 gm/dl Albumin/Globulin Ratio 0.7 Assessment & Plan Activities to the Citrobacter are back and a number of antibiotics can be years. Recommendations from infectious disease are pending. I have been in touch with his blueprint reader oncologist at [facility] and a transfer to that facility will take place tomorrow. This was also reviewed with Dr. Garzon as well as the nursing staff. I would not pursue any invasive procedures on the small perianal pustule. He appears quite comfortable. Again a transfer to [facility] will occur tomorrow. Copies of our x-ray results as well as blood work will of course need to go along with clinical summary. Appreciate everybody's help.
[2017-04-28] MEDS: VENETOCLAX 100 MG TAB PO SCH (15:17)
--- NOTE | 2017-04-28 15:29 | Medical Consult ---
Consultation Date of Consultation: Apr 28, 2017. Attending Physician: Daron West MD Reason for Consultation: Possible rectal abscess History of Present Illness Mr. Reyes is a 32-year-old male with B-cell Lymphoma who was admitted to [facility] 2 days ago with neutropenic fever. Patient is currently receiving chemotherapy every 3 weeks and just finished his 4th treatment. His oncologist is based out of the [facility]. Patient states that yesterday, during a bowel movement, he developed some rectal discomfort. Upon further examination he was able to feel a small pea-sized pustule near his anus. States that he did apply some moisturizer to the area. When he woke up this morning, he states that the discomfort did increase when using the restroom. Patient denies any drainage from the site. He states that he only feels discomfort after a bowel movement. He is able to sit and lay down comfortably. Patient reports that he does have a history of developing sebaceous cysts- has had several on his chest and has even developed small draining cysts under his arms. Patient informs me that he is most likely going to be transferred to [facility] tomorrow. Past Medical/Surgical History Medical Problems: (1) Acute kidney injury Status: Acute (2) Febrile neutropenia Status: Acute (3) Fever Status: Acute (4) Pancytopenia Status: Acute (5) Pancytopenia Status: Acute Family History Cancer Heart disease Social History Smoking Status: Never Smoker Drug Use: none Marital Status: Housing Status: lives with significant other Occupation Status: employed Allergies Coded Allergies: Erythromycin (Verified Adverse Reaction, Intermediate, GI SYMPTOMS, 04/26/17 ) Prochlorperazine (Verified Adverse Reaction, Unknown, change in mental status, 04/26/17) Current Inpatient Medications Current Inpatient Medications Medications (Trade) Dose Ordered Sig/Sidney Route Start Time Stop Time Status Last Admin Dose Admin Dronabinol (Marinol Cap) 5 mg TIDM PO 04/26/17 08:00 05/26/17 07:59 04/28/17 11:12 5 MG Lorazepam (Ativan Tab) 1 mg HS PO 04/26/17 21:00 05/26/17 20:59 04/27/17 21:14 1 MG Methadone HCl (Dolophine Tab) 15 mg Q8 PO 04/26/17 06:00 05/10/17 05:59 04/28/17 13:50 15 MG Oxycodone HCl (Roxicodone Immediate Rel Tab) 10 mg Q4 PRN PO 04/26/17 04:00 05/10/17 03:59 Miscellaneous Information (Order Awaiting Action) 1 ea QS N/A 04/26/17 08:00 05/26/17 07:59 Cetirizine HCl (zyrTEC TAB) 10 mg DAILY PO 04/26/17 08:00 05/26/17 07:59 04/28/17 08:06 10 MG Miscellaneous Information (Order Awaiting Action) 1 ea QS N/A 04/26/17 08:00 05/26/17 07:59 Senna (Senokot Tab) 17.2 mg AMHS PO 04/26/17 20:00 05/26/17 19:59 04/28/17 08:05 17.2 MG Acetaminophen (Tylenol Tab) 650 mg Q4H PRN PO 04/26/17 07:45 05/26/17 07:44 Al Hydrox/Mg Hydrox/Simethicone (Maalox Max Susp) 15 ml Q4H PRN PO 04/26/17 07:45 05/26/17 07:44 Bisacodyl (Dulcolax Tab) 10 mg HS PRN PO 04/26/17 07:45 05/26/17 07:44 Docusate Sodium (coLACE CAP) 100 mg QAM PO 04/26/17 08:00 05/26/17 07:59 04/28/17 08:05 100 MG Docusate Sodium (coLACE CAP) 200 mg HS PO 04/26/17 21:00 05/26/17 20:59 04/27/17 21:08 200 MG Escitalopram Oxalate (Lexapro Tab) 20 mg QAM PO 04/26/17 08:00 05/26/17 07:59 04/28/17 08:05 20 MG Gabapentin (Neurontin Tab) 600 mg TID PO 04/26/17 08:00 05/26/17 07:59 04/28/17 13:51 600 MG Magnesium Hydroxide (Milk Of Magnesia Susp) 30 ml Q6H PRN PO 04/26/17 08:00 05/26/17 07:59 Ondansetron HCl (Zofran Inj) 4 mg Q6H PRN IV 04/26/17 08:00 05/26/17 07:59 Heparin Sodium (Porcine) (Heparin 100 Unit/ml 5ml Flush) 5 ml PRN PRN IV 04/26/17 08:00 05/26/17 07:59 04/27/17 14:44 5 ML Cefepime HCl 2000 mg/Syringe 20 ml @ 5 mls/min Q8H IV 04/26/17 11:00 05/10/17 10:59 04/28/17 11:07 5 MLS/MIN Vancomycin HCl (Consult) 1 ea UD PRN N/A 04/26/17 08:45 05/26/17 08:44 Magnesium Oxide (Mag-Ox Tab) 400 mg QAM PO 04/27/17 08:00 05/27/17 07:59 04/28/17 08:05 400 MG Venetoclax (Venclexta) 1,200 mg DAILY@1500 PO 04/26/17 15:00 05/26/17 14:59 04/27/17 14:41 1,200 MG Dexlansoprazole (Dexilant Dr) 30 mg HS PO 04/26/17 21:00 05/26/17 20:59 Dexlansoprazole (Dexilant Dr) 60 mg QAM PO 04/27/17 08:00 05/27/17 07:59 04/28/17 08:04 60 MG Triamcinolone Acetonide (Triamcinolone Dental Paste) 1 appln TID MT 04/27/17 20:00 05/27/17 19:59 04/28/17 13:51 1 APPLN Lidocaine HCl/ Diphenhydramine HCl/Al Hydroxide/ Mg Hydroxide/ Glycerin/Barcode TID MT 04/27/17 15:00 05/27/17 14:59 04/28/17 13:51 5 ML Vancomycin HCl 1500 mg/Sodium Chloride 530 ml @ 200 mls/hr Q14H IV 04/28/17 06:00 05/10/17 05:59 04/28/17 06:14 200 MLS/HR Enoxaparin Sodium (Lovenox Inj) 40 mg QAM SQ 04/29/17 08:00 05/29/17 07:59 Ioversol (Optiray 320) 111 ml UD PRN IV 04/28/17 12:30 05/02/17 12:29 Enteral Nutritional Formula (Boost) 1 can TID PO 04/28/17 14:00 05/28/17 13:59 04/28/17 13:50 1 CAN Review of Systems rectal pain only with palpation. Constitutional: No fever, No chills Physical Exam Date Time Temp Pulse Resp B/P (MAP) Pulse Ox O2 Delivery O2 Flow Rate FiO2 04/28/17 08:25 Room Air 04/28/17 07:55 36.5 74 18 100/63 (75) 96 04/28/17 03:22 36.6 70 18 123/79 (94) 98 Room Air 04/28/17 00:00 Room Air 04/27/17 23:26 36.5 71 18 99/59 (72) 95 Room Air 04/27/17 20:12 36.2 85 20 110/71 (84) 99 Room Air 04/27/17 20:00 Room Air 04/27/17 15:17 Room Air 04/27/17 15:14 36.3 75 18 100/63 (75) 98 Patient has superficial, non-fluctuant pustule near anus- small amount of clear drainage noted on physical examination. Patient is mildly tender with palpation. The skin around the pustule is not red. General Appearance: WD/WN, no apparent distress Laboratory Results Last 24 Hours Test 04/28/17 05:31 White Blood Count 0.15 K/uL Red Blood Count 2.88 M/uL Hemoglobin 8.5 g/dL Hematocrit 24.7 % Mean Corpuscular Volume 85.8 fL Mean Corpuscular Hemoglobin 29.5 pg Mean Corpuscular Hemoglobin Concent 34.4 g/dl RDW Standard Deviation 52.0 fL RDW Coefficient of Variation 16.8 % Platelet Count 117 K/uL Mean Platelet Volume 9.5 fL Sodium Level 137 mmol/L Potassium Level 4.5 mmol/L Chloride Level 106 mmol/L Carbon Dioxide Level 27 mmol/L Anion Gap 4.0 mmol/L Blood Urea Nitrogen 24 mg/dl Creatinine 1.24 mg/dl Est Creatinine Clear Calc Drug Dose 94.8 ml/min Estimated GFR () 87.4 Estimated GFR (Non- 75.4 BUN/Creatinine Ratio 19.3 Random Glucose 92 mg/dl Calcium Level 9.3 mg/dl Total Bilirubin 0.5 mg/dl Aspartate Amino Transf (AST/SGOT) 13 U/L Alanine Aminotransferase (ALT/SGPT) 26 U/L Alkaline Phosphatase 133 U/L Total Protein 6.4 gm/dl Albumin 2.7 gm/dl Globulin 3.7 gm/dl Albumin/Globulin Ratio 0.7 EXTREMITY NONVASCULAR LIMITED CLINICAL HISTORY: external 3 'o' clock pus collection ?fistula ?size COMPARISON STUDY: PET/CT January 16, 2016. FINDINGS: Note is made of a 0.7 x 0.4 cm hypoechoic right buttock/perianal/perirectal abnormality which may reflect a small abscess. This is suboptimally assessed by ultrasound. This contains mobile debris. Adjacent soft tissues appear hyperemic. IMPRESSION: 7 mm x 4 mm right buttock/perirectal hypoechoic abnormality which contains mobile debris. Although suboptimally assessed by ultrasound, this may reflect an abscess. Electronically signed by: Anderson Randhawa M.D. 04/28/2017 12:10 PM Dictated Date/Time: 04/28/2017 12:[address] OF THE PELVIS WITHOUT CONTRAST CLINICAL HISTORY: pus/collection in 3 'o' clock positioning ?fistula ?abscess COMPARISON STUDY: Hepatic/perirectal ultrasound performed earlier today and PET/CT January 16, 2016. TECHNIQUE: Axial images of the pelvis were obtained without IV contrast as ordered. FINDINGS: Trace fluid within the pelvis is noted. No perirectal/perianal abscess is identified by CT. The possible abnormality shown on ultrasound performed earlier today is not identified on this unenhanced examination. Caliber of visualized small and large bowel are normal. Bladder is unremarkable on this examination. An erosive appearance of the medial left iliac bone is new since PET/CT of January 16, 2016. There is no pelvic lymphadenopathy. 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 Possible previous right inguinal hernia repair with mesh is noted. IMPRESSION: 1. No perianal/perirectal abscess identified on unenhanced CT. The possible abnormality shown on ultrasound performed earlier today is not visualized on this exam. 2. Erosive appearance of the medial left iliac bone, a nonspecific finding which has developed since PET/CT of January 16, 2016. 3. Trace fluid within the pelvis. 4. Trace subcutaneous gas within the right anterior abdominal wall. This could be correlated with recent subcutaneous injections. Electronically signed by: Anderson Randhawa M.D. 04/28/2017 1:08 PM Dictated Date/Time: 04/28/2017 12:59 PM Assessment & Plan Assessment: 32-year-old male, Refractory B-Cell Lymphoma, currently undergoing chemotherapy - developed rectal pain x 1 day. ? perianal abscess, ? sebaceous cyst Plan: Reviewed recent imaging, both Ultrasound and CT scan. Discussed with Dr. Castañeda. At this time, no surgical intervention is indicated. Watchful waiting. Patient to be transferred to [facility] tomorrow. Oncologist at [place] aware- he will continue to monitor. Continue IV antibiotics. Recommend warm compresses to help with discomfort. Patient advised to keep area clean with soap and water and to dry skin thoroughly. Discussed plan with patient and patient's father- both understand and agree with plan. General Surgery will continue to follow.
[2017-04-28 15:56] VITALS: BP 111/71; PULSE 82; TEMP 36.3; O2SAT 96
[2017-04-28 19:57] VITALS: BP 110/68; PULSE 72; TEMP 36.1; O2SAT 100
[2017-04-28] MEDS: DEXLANSOPRAZOLE 30 MG PO SCH (21:00)
[2017-04-28] MEDS: LORAZEPAM 1 MG TAB PO SCH (21:22)
--- NOTE | 2017-04-28 21:40 | Pharmacy Progress Note ---
Pharmacy Abx Dose Short Note Date of Service Apr 28, 2017. Assessment & Plan Assessment 32 year old male receiving Vancomycin for treatment of bacteremia. Day # 07/03 of antimicrobial therapy. Plan Vancomycin * Patient was receiving Vancomycin 1500 mg IV q14hrs. * Trough level of 23 mcg/mL is supra-therapeutic. * Changed Vancomycin to 1500 mg IV every 18 hours * Calculated pharmacokinetics: Ke= 0.054 /hr, t1/2 = 12.8 hrs * Goal trough level for bacteremia: 15 to 20 mcg/mL * Trough level ordered for: 04/29 at 1130. Pharmacy will continue to follow and will adjust dose/frequency as necessary. Thank you.
[2017-04-28 23:11] VITALS: BP 113/68; PULSE 76; TEMP 36.3; O2SAT 99
[2017-04-28] MEDS: VANCOMYCIN INJ 1,500 MG in SODIUM CHLORIDE 0.9% 500ML 500 ML IV SCH (23:56)
[2017-04-29] VITALS (13 sets, daily range): BP systolic 87–109; BP diastolic 48–71; PULSE 63–104; TEMP 35.7–36.9; O2SAT 91–100; BMI 26.6
[2017-04-29] MEDS: CEFEPIME IV 2,000 MG in SYRINGE 7.5 ML IV SCH ×3 (02:48→18:38)
[2017-04-29] MEDS: METHADONE HCL 10 MG TAB PO SCH ×3 (06:31→21:59)
[2017-04-29 06:43] LABS: HEMATOCRIT 21.4 % (42-52); HEMOGLOBIN 7.3 g/dL (14.0-18.0); MEAN CORPUSCULAR HEMOGLOBIN 29.7 pg (25-34); MEAN CORPUSCULAR HGB CONC 34.1 g/dl (32-36); PLATELET COUNT 111 K/uL (130-400); RED CELL DISTRIBUTION WIDTH CV 17.1 % (11.5-14.5); RED CELL DISTRIBUTION WIDTH SD 53.4 fL (36.4-46.3); WHITE BLOOD COUNT 0.27 K/uL (4.8-10.8)
[2017-04-29 06:44] LABS: ALBUMIN 2.5 gm/dl (3.4-5.0); CREATININE 1.23 mg/dl (0.60-1.40); POTASSIUM 4.6 mmol/L (3.5-5.1)
[2017-04-29 06:46] LABS: TOTAL PROTEIN 5.5 gm/dl (6.4-8.2)
[2017-04-29] MEDS ORDERED: Enteral Nutrition Formula PO (06:55)
[2017-04-29] MEDS ORDERED: MGNO400 PO (06:55)
[2017-04-29] MEDS ORDERED: VANC500I IV (06:55)
[2017-04-29] MEDS ORDERED: [UNRECOGNIZED DRUG - OTHER] MT (06:55)
[2017-04-29] MEDS ORDERED: LVNIS40 SQ (06:55)
[2017-04-29] MEDS ORDERED: CFP2IV IV (06:57)
--- NOTE | 2017-04-29 07:08 | Discharge Instructions ---
Discharge Instructions Date of Service Apr 29, 2017. Admission Reason for Admission: Neutropenic Fever Discharge Discharge Diagnosis / Problem: Neutropoenic fever, Bacteremia (Citrobacter) Discharge Goals Goal(s): Improve disease control, Improve nutritional status, Diagnostic testing Activity Recommendations Activity Limitations: resume your previous activity . Instructions / Follow-Up Instructions / Follow-Up Mr Reyes is a 32 year old male with refractory non-Hodgkins Lymphoma who presented to [facility] on April 26 with cough for the past week and 1 day of fever. On arrival he was found to be neutropenic with total WBC 0.09. No source of infection was identified on examination, CXR or urine analysis. He was empirically treated with IV vancomycin and IV cefepime. Subsequent blood cultures (1 from his port, 1 peripherally) grew gram negative bacilli (Citrobacter Freundii complex) in both sets (please see micro for sensitivities) and alpha strep (not enterococcus from 1/2 sets). Follow up blood cultures were taken on 04/28/17 and are negative to date. His WBC has slowly improved to 0.73 and ANC 0.47 on discharge. He has been non toxic appearing and not septic throughout his admission. He had some mild confusion on admission but this has been improving on daily basis and is not unusual for him. He was also anemia likely secondary to chemotherapy and he was transfused a total of 3 units irradiated packed RBC during his admission. His ongoing management of this will be at [facility]. On 04/28/16 he complained of rectal pain and was found to have a small perianal pustule which is not thought to be the source of his infection. Please see US and CT scan. His care was discussed with his primary oncologist Dr Mavis Sosa and he will continue to receive ceftriaxone at [facility] and have a PET scan to determine his ongoing cancer treatment this coming . If you require any further information please page Dr Misael Garzon (pager [phone]). Current Hospital Diet Patient's current hospital diet: Regular Diet Discharge Diet Recommended Diet: Regular Diet Pending Studies Studies pending at discharge: yes List of pending studies: Blood culture final results Medical Emergencies . Who to Call and When: Medical Emergencies: If at any time you feel your situation is an emergency, please call 911 immediately. . Non-Emergent Contact Non-Emergency issues call your: Oncologist . . "Provider Documentation" section prepared by Misael Garzon. . VTE Core Measure Inpt VTE Proph given/why not?: Enoxaparin (Lovenox)SQ, SCD's
--- NOTE | 2017-04-29 07:19 | Discharge Summary ---
Discharge Summary Date of Service Apr 29, 2017. Discharge Summary Admission Date: Apr 26, 2017 at 03:59 Discharge Date: Apr 29, 2017 Discharge Disposition: Acute care facility Principal Diagnosis: Neutropenic fever Problems/Secondary Diagnoses: Bacteremia (Citrobacter) Perianal pustule Refractory non-Hodgkins lymphoma Immunizations: Have You Had Influenza Vaccine: No History of Tetanus Vaccine?: Unknown History of Pneumococcal: Unknown History of Hepatitis B Vaccine: Unknown Consultations: Oncology (Dr Craig) Infectious Disease (Dr Conde) Medication Reconciliation New Medications: Cefepime HCl (Cefepime) 2 Gm Inj 2 GM IV Q8H for 7 Days, BAG Vancomycin Hcl In Dextrose (Vancomycin Hcl In Dextros) 1 Inj Inj 1500 MG IV Q18H for 7 Days, BAG Enoxaparin (Enoxaparin Sodium) 40 Mg/0.4 Ml Inj 40 MG SQ QAM for 7 Days Magnesium Oxide (Magnesium-Oxide) 400 Mg Tab 400 MG PO QAM for 7 Days, TAB Triamcinolone Acet (Triamcinolone Acetonide) 15 Appln/5 Gm Pste 1 APPLN MT TID for 7 Days [Enteral Nutrition Formula] () 1 CAN LIQD 1 CAN PO TID for 7 Days Continued Medications: Acyclovir (Zovirax) 800 Mg Tab 800 MG PO BID Bisacodyl (Bisacodyl) 5 Mg Tab 2 TAB PO HS PRN for Constipation Cefpodoxime Proxetil (Cefpodoxime Proxetil) 200 Mg Tab 1 TAB PO BID, TAB Cetirizine Hcl (Cetirizine Hcl) 10 Mg Chw 1 TAB PO DAILY Dexlansoprazole (Dexilant) 60 Mg Cap 60 MG PO QAM Dexlansoprazole (Dexilant) 30 Mg Cap 30 MG PO HS PRN for gerd Docusate Sodium (Docusate Sodium) 100 Mg Cap 100 MG PO QAM Docusate Sodium (Docusate Sodium) 100 Mg Cap 200 MG PO HS Dronabinol (Marinol) 2.5 Mg Cap 5 MG PO TIDM Escitalopram Oxalate (Lexapro) 20 Mg Tab 20 MG PO QAM Gabapentin (Gabapentin) 600 Mg Tab 600 MG PO TID Lorazepam (Ativan) 1 Mg Tab 1 MG PO HS Methadone Hcl (Dolophine) 10 Mg Tab 15 MG PO Q8 Oxycodone Immediate Rel Tab (Roxicodone Ir) 5 Mg Tab 10-15 MG PO Q4 PRN for Pain, TAB Phenol-Sodium Borate (Ulcerease) 1 Viky Viky 15 ML PO Q6H SWISH AND SPIT Sennosides (Senna-Lax) 8.6 Mg Tab 2 TABS PO AMHS Sulfa/Trimethoprim (Bactrim Ds 800MG/160MG) Tab 1 TAB PO 3XWK, #6 TAB MON,WED,FRI Venetoclax (Venclexta) 100 Mg Tab 12 TABS PO DAILY@1500 [Magic Mouth Wash] () 5 ML PO Q4H SWISH AND SPIT Discharge Exam Feels well. No change since yesterday. No new complaints. Physical Exam: General Appearance: WD/WN, no apparent distress Respiratory/Chest: lungs clear, normal breath sounds, no respiratory distress, no accessory muscle use Cardiovascular: regular rate, rhythm, no murmur, normal peripheral pulses Abdomen / GI: normal bowel sounds, non tender, soft Extremities: no pedal edema Neurologic/Psychiatric: no motor/sensory deficits, alert, normal mood/affect , oriented x 3 Skin: normal color, warm/dry, no rash, + pertinent finding (port site without signs of infection) Hospital Course Mr Reyes is a 32 year old male with refractory non-Hodgkins Lymphoma who presented to [facility] on April 26 with cough for the past week and 1 day of fever. On arrival he was found to be neutropenic with total WBC 0.09. No source of infection was identified on examination, CXR or urine analysis. He was empirically treated with IV vancomycin and IV cefepime. Subsequent blood cultures (1 from his port, 1 peripherally) grew gram negative bacilli (Citrobacter Freundii complex) in both sets (please see micro for sensitivities) and alpha strep (not enterococcus from 1/2 sets). Follow up blood cultures were taken on 04/28/17 and are pending on transfer. His WBC has slowly improved and he has been hemodynamically stable throughout his course. He had some mild confusion on admission but this has been improving on daily basis. On 04/28/16 he complained of rectal pain and was found to have a small perianal pustule which is not thought to be the source of his infection. His care was discussed with his primary oncologist Dr Mavis Sosa who accepted the patient for transfer for further treatment as he is also due a PET scan to determine his ongoing cancer treatment this coming . If you require any further information please page Dr Garzon ([facility] physician on [phone]). Total Time Spent: Less than 30 minutes This includes examination of the patient, discharge planning, medication reconciliation, and communication with other providers. Discharge Instructions Please refer to the electronic Patient Visit Report (Discharge Instructions) for additional information. Follow-Up To be arranged at [facility] Additional Copies To Crow Craig D.O.; Mavis Sosa M.D.; Dorian Franz M.D.
[2017-04-29] MEDS: GABAPENTIN 600 MG TAB PO SCH ×3 (08:40→19:49)
[2017-04-29] MEDS: LIDOCAINE HCL 2% VISCOUS SOLN 60 ML, DiphenhydrAMINE HCL SYRUP 150 MG, ALUMINUM/MAGNESI... MT SCH ×12 (08:40→19:47)
[2017-04-29] MEDS: BOOST VANILLA PO SCH ×3 (08:40→19:46)
[2017-04-29] MEDS: DRONABINOL 2.5 MG CAP PO SCH ×3 (08:40→15:38)
[2017-04-29] MEDS: ESCITALOPRAM OXALATE 20 MG TAB PO SCH (08:41)
[2017-04-29] MEDS: DOCUSATE SODIUM 100 MG CAP PO SCH ×2 (08:41→21:59)
[2017-04-29] MEDS: SENNA 8.6 MG TAB PO SCH ×2 (08:41→19:50)
[2017-04-29] MEDS: MAGNESIUM OXIDE 400 MG TAB PO SCH (08:41)
[2017-04-29] MEDS: CETIRIZINE HCL 10 MG TAB PO SCH (08:41)
[2017-04-29] MEDS: ENOXAPARIN 40 MG/0.4 ML SYR SQ SCH (08:42)
[2017-04-29] MEDS: TRIAMCINOLONE ACET 0.1% ORABASE 5 GM TUBE MT SCH ×3 (08:43→19:51)
[2017-04-29] MEDS: DEXLANSOPRAZOLE 60 MG CAPDR PO SCH (08:43)
--- NOTE | 2017-04-29 10:18 | Hematology/Oncology Prog Note ---
Hematology/Onc Progress Note Date of Service Apr 29, 2017. Diagnoses Refactory non-Hodgkin's lymphoma Pancytopenia secondary to therapy Gram-negative sepsis Medications Medications Administered Medications (Trade) Dose Ordered Sig/Sidney Route Start Time Stop Time Status Last Admin Dose Admin Acetaminophen (Tylenol Tab) 1,000 mg NOW STAT PO 04/26/17 02:23 04/26/17 02:28 DC 04/26/17 02:45 1,000 MG Vancomycin HCl 2000 mg/Sodium Chloride 290 ml @ 125 mls/hr NOW STAT IV 04/26/17 02:23 04/26/17 04:42 DC 04/26/17 02:46 125 MLS/HR Oseltamivir Phosphate (Tamiflu Cap) 75 mg NOW STAT PO 04/26/17 02:23 04/26/17 02:28 DC 04/26/17 02:45 75 MG Cefepime HCl 2000 mg/Dextrose 122 ml @ 200 mls/hr NOW STAT IV 04/26/17 02:23 04/26/17 02:59 DC 04/26/17 02:46 200 MLS/HR Dronabinol (Marinol Cap) 5 mg TIDM PO 04/26/17 08:00 05/26/17 07:59 04/29/17 08:40 5 MG Lorazepam (Ativan Tab) 1 mg HS PO 04/26/17 21:00 05/26/17 20:59 04/28/17 21:22 1 MG Methadone HCl (Dolophine Tab) 15 mg Q8 PO 04/26/17 06:00 05/10/17 05:59 04/29/17 06:31 15 MG Cetirizine HCl (zyrTEC TAB) 10 mg DAILY PO 04/26/17 08:00 05/26/17 07:59 04/29/17 08:41 10 MG Senna (Senokot Tab) 17.2 mg AMHS PO 04/26/17 20:00 05/26/17 19:59 04/29/17 08:41 17.2 MG Acyclovir (Zovirax Tab) 800 mg BID PO 04/26/17 08:00 04/28/17 07:59 DC 04/27/17 21:09 800 MG Docusate Sodium (coLACE CAP) 100 mg QAM PO 04/26/17 08:00 05/26/17 07:59 04/29/17 08:41 100 MG Docusate Sodium (coLACE CAP) 200 mg HS PO 04/26/17 21:00 05/26/17 20:59 04/28/17 21:25 200 MG Escitalopram Oxalate (Lexapro Tab) 20 mg QAM PO 04/26/17 08:00 05/26/17 07:59 04/29/17 08:41 20 MG Gabapentin (Neurontin Tab) 600 mg TID PO 04/26/17 08:00 05/26/17 07:59 04/29/17 08:40 600 MG Magnesium Sulfate 1 gm/Prmx 100 ml @ 100 mls/hr NOW STAT IV 04/26/17 07:48 04/26/17 08:47 DC 04/26/17 10:55 100 MLS/HR Heparin Sodium (Porcine) (Heparin 100 Unit/ml 5ml Flush) 5 ml PRN PRN IV 04/26/17 08:00 05/26/17 07:59 04/29/17 05:34 5 ML Cefepime HCl 2000 mg/Syringe 20 ml @ 5 mls/min Q8H IV 04/26/17 11:00 05/10/17 10:59 04/29/17 02:48 5 MLS/MIN Vancomycin HCl 1500 mg/Sodium Chloride 530 ml @ 200 mls/hr Q12H IV 04/26/17 09:00 04/27/17 16:31 DC 04/27/17 14:39 200 MLS/HR Magnesium Oxide (Mag-Ox Tab) 400 mg QAM PO 04/27/17 08:00 05/27/17 07:59 04/29/17 08:41 400 MG Magnesium Oxide (Mag-Ox Tab) 400 mg 1008 ONCE PO 04/26/17 10:08 04/26/17 10:21 DC 04/26/17 12:04 400 MG Enteral Nutritional Formula (Boost) 1 can TID PO 04/26/17 14:00 04/28/17 13:39 DC 04/28/17 08:05 1 CAN Sodium Chloride 1,000 ml @ 125 mls/hr Q8H IV 04/26/17 13:45 04/27/17 14:48 DC 04/27/17 14:10 125 MLS/HR Venetoclax (Venclexta) 1,200 mg DAILY@1500 PO 04/26/17 15:00 05/26/17 14:59 04/28/17 15:17 1,200 MG Dexlansoprazole (Dexilant Dr) 60 mg QAM PO 04/27/17 08:00 05/27/17 07:59 04/29/17 08:43 60 MG Dexamethasone/ Nystatin/ Diphenhydramine HCl/Sucrose/ Microcrystalline Cellulose/Barcode Q4HWA PO 04/26/17 16:00 04/27/17 14:52 DC 04/27/17 11:29 5 ML Triamcinolone Acetonide (Triamcinolone Dental Paste) 1 appln TID MT 04/27/17 20:00 05/27/17 19:59 04/29/17 08:43 1 APPLN Lidocaine HCl/ Diphenhydramine HCl/Al Hydroxide/ Mg Hydroxide/ Glycerin/Barcode TID MT 04/27/17 15:00 05/27/17 14:59 04/29/17 08:40 5 ML Vancomycin HCl 1500 mg/Sodium Chloride 530 ml @ 200 mls/hr Q14H IV 04/28/17 06:00 04/28/17 20:41 DC 04/28/17 06:14 200 MLS/HR Enoxaparin Sodium (Lovenox Inj) 40 mg QAM SQ 04/29/17 08:00 05/29/17 07:59 04/29/17 08:42 40 MG Enoxaparin Sodium (Lovenox Inj) 40 mg 0946 ONCE SQ 04/28/17 09:46 04/28/17 09:50 DC 04/28/17 11:10 40 MG Enteral Nutritional Formula (Boost) 1 can TID PO 04/28/17 14:00 05/28/17 13:59 04/28/17 21:23 1 CAN Vancomycin HCl 1500 mg/Sodium Chloride 530 ml @ 200 mls/hr Q18H IV 04/29/17 00:00 05/10/17 05:59 04/28/17 23:56 200 MLS/HR Subjective Being readied for transfer to [facility]. He remains afebrile. Blood counts slightly improved. His states that his mouth pain might be a little worse. Otherwise his review of system remains unchanged Review of Systems: Constitutional: Negative for night sweats, or fever Eyes: Negative for event change of vision ENT: Negative for epistaxis, nasal discharge, sore throat, or deafness Cardiovascular: Negative for chest pain, palpitations, dizziness, diaphoresis Respiratory: Negative for new shortness of breath,hemoptysis, or purulent cough Gastrointestinal: Negative for diarrhea, hematemesis, melena, nausea, vomiting , or dyspepsia Integumentary (skin): Negative for rash or jaundice discoloration Neurological: Negative for weakness, seizure activity, headache, or dizziness Lymphatic/Hematologic: Negative for petechiae, bleeding or new adenopathy Musculoskeletal: Negative for new joint or back pain Allergic/Immunologic: Negative for unusual rash or pruritis. Vital Signs Vital Signs Past 12 Hours Date Time Temp Pulse Resp B/P (MAP) Pulse Ox O2 Delivery O2 Flow Rate FiO2 04/29/17 08:45 96 Room Air 04/29/17 07:33 36.5 95 20 87/53 (64) 95 Room Air 04/29/17 04:19 64 99/57 (71) 04/29/17 04:08 36.8 104 20 88/51 (63) 93 Room Air 04/29/17 00:00 Room Air 04/28/17 23:11 36.3 76 16 113/68 (83) 99 Room Air Physical Exam Constitutional: vitals are stable. Eyes: Eyes are BEBO EOMI without conjuctival erythema or icterus. ENT: External examination was negative for masses. Examination of the oral mucosa is really unremarkable. Neck: Negative for masses or palpable thyromegaly Respiratory: Lung sounds were generally clear bilaterally Cardiovascular: Heart was RRR without significant murmur, gallops aoe rubs Gastrointestinal: No palpable hepatic or splenomegaly. The abdomen was soft with normal bowel sounds. Lymphatic system: there was no palpable peripheral lymphadenopathy Musculoskeletal System: The musculoskeletal system seemed concordant with age. Skin: The skin was negative for jaundice. Neurologic exam: The exam was negative for any focal findings. Deep tendon reflexes were equal and symmetrical. Psychiatric exam: Was essentially negative with normal mood and effect. Extremities: Negative for edema Laboratory Last 24 Hours Test 04/28/17 18:53 04/29/17 05:37 Vancomycin Level Trough 23.0 mcg/ml White Blood Count 0.27 K/uL Red Blood Count 2.46 M/uL Hemoglobin 7.3 g/dL Hematocrit 21.4 % Mean Corpuscular Volume 87.0 fL Mean Corpuscular Hemoglobin 29.7 pg Mean Corpuscular Hemoglobin Concent 34.1 g/dl RDW Standard Deviation 53.4 fL RDW Coefficient of Variation 17.1 % Platelet Count 111 K/uL Mean Platelet Volume 9.0 fL Sodium Level 137 mmol/L Potassium Level 4.6 mmol/L Chloride Level 103 mmol/L Carbon Dioxide Level 29 mmol/L Anion Gap 5.0 mmol/L Blood Urea Nitrogen 27 mg/dl Creatinine 1.23 mg/dl Est Creatinine Clear Calc Drug Dose 95.6 ml/min Estimated GFR () 88.2 Estimated GFR (Non- 76.1 BUN/Creatinine Ratio 21.7 Random Glucose 87 mg/dl Calcium Level 9.0 mg/dl Total Bilirubin 0.6 mg/dl Aspartate Amino Transf (AST/SGOT) 9 U/L Alanine Aminotransferase (ALT/SGPT) 20 U/L Alkaline Phosphatase 115 U/L Total Protein 5.5 gm/dl Albumin 2.5 gm/dl Globulin 3.0 gm/dl Albumin/Globulin Ratio 0.8 Assessment & Plan He is being ready for transfer to [facility]. Sensitivities to the microorganism Citrobacter are back. He is on cefepime as well as vancomycin. He appears stable. We will see him once he returns to the community setting. Now we will sign off.
--- NOTE | 2017-04-29 10:26 | Surgery Progress Note ---
Surgery Progress Note Date of Service Apr 29, 2017. Subjective Patient laying in bed- reports that rectal pain has improved- took shower last night and was able to express some drainage. Objective Vital Signs: Date Time Temp Pulse Resp B/P (MAP) Pulse Ox O2 Delivery O2 Flow Rate FiO2 04/29/17 08:45 96 Room Air 04/29/17 07:33 36.5 95 20 87/53 (64) 95 Room Air 04/29/17 04:19 64 99/57 (71) 04/29/17 04:08 36.8 104 20 88/51 (63) 93 Room Air 04/29/17 00:00 Room Air 04/28/17 23:11 36.3 76 16 113/68 (83) 99 Room Air 04/28/17 20:00 Room Air 04/28/17 19:57 36.1 72 20 110/68 (82) 100 Room Air 04/28/17 15:56 36.3 82 22 111/71 (84) 96 Room Air 04/28/17 15:41 Room Air General Appearance: WD/WN, no apparent distress Laboratory Results: Results Past 24 Hours Test 04/28/17 18:53 04/29/17 05:37 Range/Units Vancomycin Level Trough 23.0 SEE COMMENT mcg/ml White Blood Count 0.27 4.8-10.8 K/uL Red Blood Count 2.46 4.7-6.1 M/uL Hemoglobin 7.3 14.0-18.0 g/dL Hematocrit 21.4 42-52 % Mean Corpuscular Volume 87.0 80-100 fL Mean Corpuscular Hemoglobin 29.7 25-34 pg Mean Corpuscular Hemoglobin Concent 34.1 32-36 g/dl RDW Standard Deviation 53.4 36.4-46.3 fL RDW Coefficient of Variation 17.1 11.5-14.5 % Platelet Count 111 130-400 K/uL Mean Platelet Volume 9.0 7.4-10.4 fL Sodium Level 137 136-145 mmol/L Potassium Level 4.6 3.5-5.1 mmol/L Chloride Level 103 98-107 mmol/L Carbon Dioxide Level 29 21-32 mmol/L Anion Gap 5.0 3-11 mmol/L Blood Urea Nitrogen 27 7-18 mg/dl Creatinine 1.23 0.60-1.40 mg/dl Est Creatinine Clear Calc Drug Dose 95.6 ml/min Estimated GFR () 88.2 Estimated GFR (Non- 76.1 BUN/Creatinine Ratio 21.7 10-20 Random Glucose 87 70-99 mg/dl Calcium Level 9.0 8.5-10.1 mg/dl Total Bilirubin 0.6 0.2-1 mg/dl Aspartate Amino Transf (AST/SGOT) 9 15-37 U/L Alanine Aminotransferase (ALT/SGPT) 20 12-78 U/L Alkaline Phosphatase 115 45-117 U/L Total Protein 5.5 6.4-8.2 gm/dl Albumin 2.5 3.4-5.0 gm/dl Globulin 3.0 2.5-4.0 gm/dl Albumin/Globulin Ratio 0.8 0.9-2 Patient has small pustule near anus- no drainage noted on examination today. Superficial. No erythema. Assessment & Plan Assessment: 32-year-old male, Refractory B-Cell Lymphoma, currently undergoing chemotherapy - rectal pain. 04/29/2017 Patient seen and examined with Dr. Castañeda. Patient to be transferred to [facility] today. Continue watchful waiting- no intervention indicated at this time. Oncologist at [place] aware- he will continue to monitor. Discussed use of warm compresses with patient to help with pain and discomfort. Recommend warm soaks in bathtub if possible. Discussed plan with patient- patient understands and agrees with plan. General Surgery will sign off. 04/28/2017:Plan: Reviewed recent imaging, both Ultrasound and CT scan. Discussed with Dr. Castañeda. At this time, no surgical intervention is indicated. Watchful waiting. Patient to be transferred to [facility] tomorrow. Oncologist at [place] aware- he will continue to monitor. Continue IV antibiotics. Recommend warm compresses to help with discomfort. Patient advised to keep area clean with soap and water and to dry skin thoroughly. Discussed plan with patient and patient's father- both understand and agree with plan. General Surgery will continue to follow.
--- NOTE | 2017-04-29 11:21 | Infectious Disease Progress Nt ---
Progress Note Date of Service Apr 29, 2017. Subjective Pt evaluation today including: conversation w/ patient, conversation w/ family , physical exam, chart review, lab review, review of studies, conversation w/ reservoir engineering consultant, review of inpatient medication list Recent events reviewed. Patient developed small pustule in the perirectal area , seen by surgery and no intervention planned at this time. CT scan of the pelvis shows no obvious drainable collection His case was discussed with his oncologist at the [facility], and plans for transfer there today. Blood cultures have grown Citrobacter. Remains afebrile. All Other Systems: Reviewed and Negative Medications Current Inpatient Medications Medications (Trade) Dose Ordered Sig/Sidney Route Start Time Stop Time Status Last Admin Dose Admin Dronabinol (Marinol Cap) 5 mg TIDM PO 04/26/17 08:00 05/26/17 07:59 04/29/17 08:40 5 MG Lorazepam (Ativan Tab) 1 mg HS PO 04/26/17 21:00 05/26/17 20:59 04/28/17 21:22 1 MG Methadone HCl (Dolophine Tab) 15 mg Q8 PO 04/26/17 06:00 05/10/17 05:59 04/29/17 06:31 15 MG Oxycodone HCl (Roxicodone Immediate Rel Tab) 10 mg Q4 PRN PO 04/26/17 04:00 05/10/17 03:59 Miscellaneous Information (Order Awaiting Action) 1 ea QS N/A 04/26/17 08:00 05/26/17 07:59 Cetirizine HCl (zyrTEC TAB) 10 mg DAILY PO 04/26/17 08:00 05/26/17 07:59 04/29/17 08:41 10 MG Miscellaneous Information (Order Awaiting Action) 1 ea QS N/A 04/26/17 08:00 05/26/17 07:59 Senna (Senokot Tab) 17.2 mg AMHS PO 04/26/17 20:00 05/26/17 19:59 04/29/17 08:41 17.2 MG Acetaminophen (Tylenol Tab) 650 mg Q4H PRN PO 04/26/17 07:45 05/26/17 07:44 Al Hydrox/Mg Hydrox/Simethicone (Maalox Max Susp) 15 ml Q4H PRN PO 04/26/17 07:45 05/26/17 07:44 Bisacodyl (Dulcolax Tab) 10 mg HS PRN PO 04/26/17 07:45 05/26/17 07:44 Docusate Sodium (coLACE CAP) 100 mg QAM PO 04/26/17 08:00 05/26/17 07:59 04/29/17 08:41 100 MG Docusate Sodium (coLACE CAP) 200 mg HS PO 04/26/17 21:00 05/26/17 20:59 04/28/17 21:25 200 MG Escitalopram Oxalate (Lexapro Tab) 20 mg QAM PO 04/26/17 08:00 05/26/17 07:59 04/29/17 08:41 20 MG Gabapentin (Neurontin Tab) 600 mg TID PO 04/26/17 08:00 05/26/17 07:59 04/29/17 08:40 600 MG Magnesium Hydroxide (Milk Of Magnesia Susp) 30 ml Q6H PRN PO 04/26/17 08:00 05/26/17 07:59 Ondansetron HCl (Zofran Inj) 4 mg Q6H PRN IV 04/26/17 08:00 05/26/17 07:59 Heparin Sodium (Porcine) (Heparin 100 Unit/ml 5ml Flush) 5 ml PRN PRN IV 04/26/17 08:00 05/26/17 07:59 04/29/17 10:54 5 ML Cefepime HCl 2000 mg/Syringe 20 ml @ 5 mls/min Q8H IV 04/26/17 11:00 05/10/17 10:59 04/29/17 10:53 5 MLS/MIN Vancomycin HCl (Consult) 1 ea UD PRN N/A 04/26/17 08:45 05/26/17 08:44 Magnesium Oxide (Mag-Ox Tab) 400 mg QAM PO 04/27/17 08:00 05/27/17 07:59 04/29/17 08:41 400 MG Venetoclax (Venclexta) 1,200 mg DAILY@1500 PO 04/26/17 15:00 05/26/17 14:59 04/28/17 15:17 1,200 MG Dexlansoprazole (Dexilant Dr) 30 mg HS PO 04/26/17 21:00 05/26/17 20:59 Dexlansoprazole (Dexilant Dr) 60 mg QAM PO 04/27/17 08:00 05/27/17 07:59 04/29/17 08:43 60 MG Triamcinolone Acetonide (Triamcinolone Dental Paste) 1 appln TID MT 04/27/17 20:00 05/27/17 19:59 04/29/17 08:43 1 APPLN Lidocaine HCl/ Diphenhydramine HCl/Al Hydroxide/ Mg Hydroxide/ Glycerin/Barcode TID MT 04/27/17 15:00 05/27/17 14:59 04/29/17 08:40 5 ML Enoxaparin Sodium (Lovenox Inj) 40 mg QAM SQ 04/29/17 08:00 05/29/17 07:59 04/29/17 08:42 40 MG Ioversol (Optiray 320) 111 ml UD PRN IV 04/28/17 12:30 05/02/17 12:29 Enteral Nutritional Formula (Boost) 1 can TID PO 04/28/17 14:00 05/28/17 13:59 04/28/17 21:23 1 CAN Vancomycin HCl 1500 mg/Sodium Chloride 530 ml @ 200 mls/hr Q18H IV 04/29/17 00:00 05/10/17 05:59 04/28/17 23:56 200 MLS/HR Objective Vital Signs Date Time Temp Pulse Resp B/P (MAP) Pulse Ox O2 Delivery O2 Flow Rate FiO2 04/29/17 08:45 96 Room Air 04/29/17 07:33 36.5 95 20 87/53 (64) 95 Room Air 04/29/17 04:19 64 99/57 (71) 04/29/17 04:08 36.8 104 20 88/51 (63) 93 Room Air 04/29/17 00:00 Room Air 04/28/17 23:11 36.3 76 16 113/68 (83) 99 Room Air 04/28/17 20:00 Room Air 04/28/17 19:57 36.1 72 20 110/68 (82) 100 Room Air 04/28/17 15:56 36.3 82 22 111/71 (84) 96 Room Air 04/28/17 15:41 Room Air Physical Exam General Appearance: WD/WN, no apparent distress Eyes: normal inspection, sclerae normal ENT: normal ENT inspection, pharynx normal Neck: supple, no adenopathy, trachea midline Respiratory/Chest: chest non-tender, lungs clear, normal breath sounds, no respiratory distress Cardiovascular: regular rate, rhythm, no gallop, no murmur Abdomen: normal bowel sounds, non tender, soft, no organomegaly Extremities: non-tender, no calf tenderness Neurologic/Psychiatric: alert, oriented x 3 Skin: normal color, no rash Lymphatic: no adenopathy Laboratory Results RUN DATE: 04/28/17 [facility] PAGE 1 RUN TIME: 0759 Specimen Inquiry PATIENT: PAMELLALaurentADALGISA Marina LOC: [facility] U # : [id number] AGE/SX: 32/M ROOM: [facility] REG : 04/26/[address]: Daron West, : 1985 BED: 1 DIS : STATUS: ADM IN TLOC: SPEC #: [id number] TIFFANY: 04/26/17-231 STATUS: COMP REQ #: [id number] RECD: 04/26/17-[address]: Adalgisa Staples M.D. SOURCE: BLOOD ENTR: 04/26/17-[address]: Dorian Franz M.D. [facility]: ORDERED: BLOOD CULTURE Procedure Result Verified Site BLD CULT Final 04/28/17-0759 Organism 1 CITROBACTER FREUNDII COMPLEX SENS SENSITIVITY TO FOLLOW Phoned Positive Blood Culture Gram Stain Report to JEANNA JOHNSON on 04/26/17 At 1616 By KAROL. Results were verbalized back to KAROL. 1. CITROBACTER FREUNDII COMPLEX Target Route Dose RX AB Cost M.I.C. IQ ------ ----- ------ -- ------ -------- - ------ TRIMET/SULFA R >2/38 CEFOTAXIME S <=2 CEFTRIAXONE S <=1 CEFEPIME S <=4 IMIPENEM S <=1 GENTAMICIN R >8 TOBRAMYCIN R >8 AMIKACIN S <=16 CIPROFLOXACIN I 2 LEVOFLOXACIN S <=2 ERTAPENEM S <=1 PIP/TAZO S <=16 S = SENSITIVE I = INTERMEDIATE R = RESISTANT Last 24 Hours Test 04/28/17 18:53 04/29/17 05:37 Vancomycin Level Trough 23.0 mcg/ml White Blood Count 0.27 K/uL Red Blood Count 2.46 M/uL Hemoglobin 7.3 g/dL Hematocrit 21.4 % Mean Corpuscular Volume 87.0 fL Mean Corpuscular Hemoglobin 29.7 pg Mean Corpuscular Hemoglobin Concent 34.1 g/dl RDW Standard Deviation 53.4 fL RDW Coefficient of Variation 17.1 % Platelet Count 111 K/uL Mean Platelet Volume 9.0 fL Sodium Level 137 mmol/L Potassium Level 4.6 mmol/L Chloride Level 103 mmol/L Carbon Dioxide Level 29 mmol/L Anion Gap 5.0 mmol/L Blood Urea Nitrogen 27 mg/dl Creatinine 1.23 mg/dl Est Creatinine Clear Calc Drug Dose 95.6 ml/min Estimated GFR () 88.2 Estimated GFR (Non- 76.1 BUN/Creatinine Ratio 21.7 Random Glucose 87 mg/dl Calcium Level 9.0 mg/dl Total Bilirubin 0.6 mg/dl Aspartate Amino Transf (AST/SGOT) 9 U/L Alanine Aminotransferase (ALT/SGPT) 20 U/L Alkaline Phosphatase 115 U/L Total Protein 5.5 gm/dl Albumin 2.5 gm/dl Globulin 3.0 gm/dl Albumin/Globulin Ratio 0.8 Patient Name: ADALGISA HOWELL Unit Number: [id number] Dictated: 04/28/[id number] Transcribed: 04/28/171258 ANGELA Printed Date/Time: [~ rep prt dt]/[~ rep prt tm] [~ rep ct labl] - [~ rep ct ivnm] [facility] [place] [address] Dictated: 04/28/171258 Transcribed: 04/28/171258 ANGELA Printed Date/Time: [~ rep prt dt]/[~ rep prt tm] [~ rep ct labl] - [~ rep ct ivnm] CT OF THE PELVIS WITHOUT CONTRAST CLINICAL HISTORY: pus/collection in 3 'o' clock positioning ?fistula ?abscess COMPARISON STUDY: Hepatic/perirectal ultrasound performed earlier today and PET/CT January 16, 2016. TECHNIQUE: Axial images of the pelvis were obtained without IV contrast as ordered. FINDINGS: Trace fluid within the pelvis is noted. No perirectal/perianal abscess is identified by CT. The possible abnormality shown on ultrasound performed earlier today is not identified on this unenhanced examination. Caliber of visualized small and large bowel are normal. Bladder is unremarkable on this examination. An erosive appearance of the medial left iliac bone is new since PET/CT of January 16, 2016. There is no pelvic lymphadenopathy. 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 Possible previous right inguinal hernia repair with mesh is noted. IMPRESSION: 1. No perianal/perirectal abscess identified on unenhanced CT. The possible abnormality shown on ultrasound performed earlier today is not visualized on this exam. 2. Erosive appearance of the medial left iliac bone, a nonspecific finding which has developed since PET/CT of January 16, 2016. 3. Trace fluid within the pelvis. 4. Trace subcutaneous gas within the right anterior abdominal wall. This could be correlated with recent subcutaneous injections. Electronically signed by: Anderson Randhawa M.D. 04/28/2017 1:08 PM Dictated Date/Time: 04/28/2017 12:59 PM The status of this report is Signed. Draft = Not yet reviewed or approved by Radiologist. Signed = Reviewed and approved by Radiologist. <AttendingPhy>Daron West MD</AttendingPhy> <FamilyPhy>Crow Craig D.O.</FamilyPhy> <PrimaryPhy>Dorian Franz M.D.</PrimaryPhy> < UnitNumber>[id number]</UnitNumber> <VisitNumber>[id number]</VisitNumber> < PatientName>ADALGISA HOWELL</PatientName> <DateOfBirth>1985</DateOfBirth> < Location>[facility]</Location> <ServiceDate>04/26/17</ServiceDate> <MNE>ESINDI</MNE> < OrderingPhy>Misael Garzon MD</OrderingPhy> <OrderingPhyMNE>f rep ord dr gill</ OrderingPhyMNE> <DictatingPhyMNE>f rep dict dr gill</DictatingPhyMNE> <CCListMNE> f rep ct mne</CCListMNE> <AdmittingPhyMNE>f pt admit dr gill</AdmittingPhyMNE> < AttendingPhyMNE>f pt attend dr gill</AttendingPhyMNE> <ConsultingPhyMNE>f pt consult dr gill</ConsultingPhyMNE> <FamilyPhyMNE>f pt fam dr gill</FamilyPhyMNE> <OtherPhyMNE>f pt other dr gill</OtherPhyMNE> < PrimaryPhyMNE>f pt prim care dr gill</PrimaryPhyMNE> <ReferringPhyMNE>f pt referring dr gill</ReferringPhyMNE> Assessment and Plan 32-year-old male with aggressive lymphoma now with Citrobacter bacteremia with 1 culture also positive for strep In the setting of profound neutropenia from chemotherapy. Patient has been afebrile on cefepime, awaiting transfer to the [facility] for further management.
[2017-04-29] MEDS: VENETOCLAX 100 MG TAB PO SCH (15:30)
--- NOTE | 2017-04-29 15:32 | Family Medicine Progress Note ---
Progress Note Date of Service Apr 29, 2017. Subjective Pt evaluation today including: conversation w/ patient, physical exam, chart review, lab review, review of studies, review of inpatient medication list Feels well. No change since yesterday. No new complaints. Rectal pain no better or worse. All Other Systems: Reviewed and Negative Medications Current Inpatient Medications Medications (Trade) Dose Ordered Sig/Sidney Route Start Time Stop Time Status Last Admin Dose Admin Dronabinol (Marinol Cap) 5 mg TIDM PO 04/26/17 08:00 05/26/17 07:59 04/29/17 12:45 5 MG Lorazepam (Ativan Tab) 1 mg HS PO 04/26/17 21:00 05/26/17 20:59 04/28/17 21:22 1 MG Methadone HCl (Dolophine Tab) 15 mg Q8 PO 04/26/17 06:00 05/10/17 05:59 04/29/17 14:28 15 MG Oxycodone HCl (Roxicodone Immediate Rel Tab) 10 mg Q4 PRN PO 04/26/17 04:00 05/10/17 03:59 Miscellaneous Information (Order Awaiting Action) 1 ea QS N/A 04/26/17 08:00 05/26/17 07:59 Cetirizine HCl (zyrTEC TAB) 10 mg DAILY PO 04/26/17 08:00 05/26/17 07:59 04/29/17 08:41 10 MG Miscellaneous Information (Order Awaiting Action) 1 ea QS N/A 04/26/17 08:00 05/26/17 07:59 Senna (Senokot Tab) 17.2 mg AMHS PO 04/26/17 20:00 05/26/17 19:59 04/29/17 08:41 17.2 MG Acetaminophen (Tylenol Tab) 650 mg Q4H PRN PO 04/26/17 07:45 05/26/17 07:44 Al Hydrox/Mg Hydrox/Simethicone (Maalox Max Susp) 15 ml Q4H PRN PO 04/26/17 07:45 05/26/17 07:44 Bisacodyl (Dulcolax Tab) 10 mg HS PRN PO 04/26/17 07:45 05/26/17 07:44 Docusate Sodium (coLACE CAP) 100 mg QAM PO 04/26/17 08:00 05/26/17 07:59 04/29/17 08:41 100 MG Docusate Sodium (coLACE CAP) 200 mg HS PO 04/26/17 21:00 05/26/17 20:59 04/28/17 21:25 200 MG Escitalopram Oxalate (Lexapro Tab) 20 mg QAM PO 04/26/17 08:00 05/26/17 07:59 04/29/17 08:41 20 MG Gabapentin (Neurontin Tab) 600 mg TID PO 04/26/17 08:00 05/26/17 07:59 04/29/17 14:28 600 MG Magnesium Hydroxide (Milk Of Magnesia Susp) 30 ml Q6H PRN PO 04/26/17 08:00 05/26/17 07:59 Ondansetron HCl (Zofran Inj) 4 mg Q6H PRN IV 04/26/17 08:00 05/26/17 07:59 Heparin Sodium (Porcine) (Heparin 100 Unit/ml 5ml Flush) 5 ml PRN PRN IV 04/26/17 08:00 05/26/17 07:59 04/29/17 10:54 5 ML Cefepime HCl 2000 mg/Syringe 20 ml @ 5 mls/min Q8H IV 04/26/17 11:00 05/10/17 10:59 04/29/17 10:53 5 MLS/MIN Vancomycin HCl (Consult) 1 ea UD PRN N/A 04/26/17 08:45 05/26/17 08:44 Magnesium Oxide (Mag-Ox Tab) 400 mg QAM PO 04/27/17 08:00 05/27/17 07:59 04/29/17 08:41 400 MG Venetoclax (Venclexta) 1,200 mg DAILY@1500 PO 04/26/17 15:00 05/26/17 14:59 04/28/17 15:17 1,200 MG Dexlansoprazole (Dexilant Dr) 30 mg HS PO 04/26/17 21:00 05/26/17 20:59 Dexlansoprazole (Dexilant Dr) 60 mg QAM PO 04/27/17 08:00 05/27/17 07:59 04/29/17 08:43 60 MG Triamcinolone Acetonide (Triamcinolone Dental Paste) 1 appln TID MT 04/27/17 20:00 05/27/17 19:59 04/29/17 14:27 1 APPLN Lidocaine HCl/ Diphenhydramine HCl/Al Hydroxide/ Mg Hydroxide/ Glycerin/Barcode TID MT 04/27/17 15:00 05/27/17 14:59 04/29/17 14:27 5 ML Enoxaparin Sodium (Lovenox Inj) 40 mg QAM SQ 04/29/17 08:00 05/29/17 07:59 04/29/17 08:42 40 MG Ioversol (Optiray 320) 111 ml UD PRN IV 04/28/17 12:30 05/02/17 12:29 Enteral Nutritional Formula (Boost) 1 can TID PO 04/28/17 14:00 05/28/17 13:59 04/29/17 14:28 1 CAN Vancomycin HCl 1500 mg/Sodium Chloride 530 ml @ 200 mls/hr Q18H IV 04/29/17 00:00 05/10/17 05:59 04/28/17 23:56 200 MLS/HR Objective Vital Signs Date Time Temp Pulse Resp B/P (MAP) Pulse Ox O2 Delivery O2 Flow Rate FiO2 04/29/17 15:24 36.6 69 16 95/60 (72) 94 04/29/17 11:54 36.4 101 18 89/48 (62) 91 Room Air 04/29/17 08:45 96 Room Air 04/29/17 07:33 36.5 95 20 87/53 (64) 95 Room Air 04/29/17 04:19 64 99/57 (71) 04/29/17 04:08 36.8 104 20 88/51 (63) 93 Room Air 04/29/17 00:00 Room Air 04/28/17 23:11 36.3 76 16 113/68 (83) 99 Room Air 04/28/17 20:00 Room Air 04/28/17 19:57 36.1 72 20 110/68 (82) 100 Room Air 04/28/17 15:56 36.3 82 22 111/71 (84) 96 Room Air 04/28/17 15:41 Room Air Physical Exam General Appearance: no apparent distress Respiratory/Chest: lungs clear, normal breath sounds, no respiratory distress, no accessory muscle use Cardiovascular: regular rate, rhythm, no murmur Abdomen: normal bowel sounds, soft, + tenderness (left sided chronic abdominal pain) Extremities: no pedal edema, + pertinent finding (mild b/l calf tenderness without swelling or erythema, similar to previous days, not getting any worse) Neurologic/Psychiatric: tariff counsel II-XII nml as tested (no facial droop), no motor/ sensory deficits, alert, oriented x 3 Skin: normal color, warm/dry Laboratory Results 04/29/17 05:37 04/29/17 05:37 Test 04/28/17 18:53 04/29/17 05:37 Vancomycin Level Trough 23.0 mcg/ml (SEE COMMENT) Red Blood Count 2.46 M/uL (4.7-6.1) Mean Corpuscular Volume 87.0 fL (80-100) Mean Corpuscular Hemoglobin 29.7 pg (25-34) Mean Corpuscular Hemoglobin Concent 34.1 g/dl (32-36) RDW Standard Deviation 53.4 fL (36.4-46.3) RDW Coefficient of Variation 17.1 % (11.5-14.5) Mean Platelet Volume 9.0 fL (7.4-10.4) Anion Gap 5.0 mmol/L (3-11) Est Creatinine Clear Calc Drug Dose 95.6 ml/min Estimated GFR () 88.2 Estimated GFR (Non- 76.1 BUN/Creatinine Ratio 21.7 (10-20) Calcium Level 9.0 mg/dl (8.5-10.1) Total Bilirubin 0.6 mg/dl (0.2-1) Aspartate Amino Transf (AST/SGOT) 9 U/L (15-37) Alanine Aminotransferase (ALT/SGPT) 20 U/L (12-78) Alkaline Phosphatase 115 U/L (45-117) Total Protein 5.5 gm/dl (6.4-8.2) Albumin 2.5 gm/dl (3.4-5.0) Globulin 3.0 gm/dl (2.5-4.0) Albumin/Globulin Ratio 0.8 (0.9-2) Assessment and Plan 32 year old male with B-cell lymphoma currently undergoing EPOCH-R plus Venclexta chemotherapy every 3 weeks with his most recent treatment being his fourth round (started on Apr 12) that presents with neutropenic fever now with gram negative bacilli. Neutropenic fever / Bacteremia - WBC 0.27 improving - Continue Vancomycin and Cefepime pending ID recommendations - Neutropenic precautions - Blood Cultures pending - gram negative bacilli (Citrobacter) in 2/2 ( sensitivities noted) and gram positive cocci in 1/2 - Tylenol for fever - Continue home Acyclovir 800mg PO BID Perianal pustule - unlikely source of infection, 7x4mm on US, not seen on CT - Surgery consult appreciated Acute on chronic anemia (Hgb 7.3) - secondary to chemotherapy - Hgb slightly reduced on labs today s/p 2 units blood transfusion - monitor Hgb B cell Lymphoma - Continue daily Venclexta with chemo regimen - Appreciate oncology management - Dr Craig - Continue Methadone 15mg q8h for chronic pain relief Neuropathic Pain - Continue home Gabapentin 600mg PO TID Nausea - Continue home Zofran and Marinol for Nausea/ Appetite stimulation Anxiety - Continue home Ativan, as per previous notes given 30 minutes after Methadone Opioid-induced constipation - Dulcolax, Docusate, Senna PRN VTE Prophylaxis - SCDs - Start Lovenox 40 mg SQ daily Code Status - Full Resuscitation Disposition - Plan for transfer to [facility] as arranged by Dr Craig Resident Tracking Resident Involvement: Resident Care Provided Care Provided: Adult Hospital Medicine Resident Tracking Resident Involvement: Resident Care Provided Care Provided: Adult Hospital Medicine Reviewed: Pt Seen/Exam by Me History no new concerns Constitutional: denies: fever Respiratory: negative: short of breath Cardiovascular: denies chest pain General Appearance: no apparent distress Ears, Nose, Throat: hearing grossly normal Respiratory: no respiratory distress Neurologic/Psychiatric: alert, oriented x 3 Skin Characteristics: warm/dry Assessment/Plan Resident Physician Supervision Note: I independently interviewed and examined the patient and verified the linton history and physical, reviewed labs and image studies, discussed the case with the resident Dr. Garzon and agree with the findings and care plan.
[2017-04-29] MEDS: VANCOMYCIN INJ 1,500 MG in SODIUM CHLORIDE 0.9% 500ML 500 ML IV SCH (18:01)
[2017-04-29] MEDS: DEXLANSOPRAZOLE 30 MG PO SCH (21:00)
--- NOTE | 2017-04-29 21:31 | Progress Note ---
Progress Note Date of Service Apr 29, 2017. Progress Note D/W Dr Conde - since patient does not have a bed. Advised to step down antibiotic from vanc/cefepime to ceftriaxone 2g D/W Dr Craig - advised 1 unit packed RBC irradiated with anemia.
[2017-04-29] MEDS: LORAZEPAM 1 MG TAB PO SCH (21:59)
[2017-04-29] MEDS ORDERED: CEFTRIAXONE SOD INJ 2,000 MG in DEXTROSE 5% 50ML 50 ML IV SCH (22:00)
[2017-04-30] VITALS (9 sets, daily range): BP systolic 93–116; BP diastolic 56–74; PULSE 67–104; TEMP 36.1–36.6; O2SAT 94–100; Ht 185.4 cm; Wt 89.6 kg
[2017-04-30] MEDS: METHADONE HCL 10 MG TAB PO SCH ×2 (06:12→14:00)
[2017-04-30 06:20] LABS: HEMATOCRIT 29.1 % (42-52); HEMOGLOBIN 9.9 g/dL (14.0-18.0); MEAN CELL VOLUME 88.2 fL (80-100); MEAN PLATELET VOLUME 9.5 fL (7.4-10.4); PLATELET COUNT 137 K/uL (130-400); RED CELL DISTRIBUTION WIDTH CV 17.2 % (11.5-14.5); RED CELL DISTRIBUTION WIDTH SD 53.8 fL (36.4-46.3); WHITE BLOOD COUNT 0.73 K/uL (4.8-10.8)
[2017-04-30 06:23] LABS: CALCIUM 9.8 mg/dl (8.5-10.1); CREATININE 1.33 mg/dl (0.60-1.40); POTASSIUM 4.7 mmol/L (3.5-5.1); TOTAL PROTEIN 6.8 gm/dl (6.4-8.2)
[2017-04-30] MEDS: LIDOCAINE HCL 2% VISCOUS SOLN 60 ML, DiphenhydrAMINE HCL SYRUP 150 MG, ALUMINUM/MAGNESI... MT SCH ×8 (08:36→14:00)
[2017-04-30] MEDS: TRIAMCINOLONE ACET 0.1% ORABASE 5 GM TUBE MT SCH ×2 (08:36→14:01)
[2017-04-30] MEDS: BOOST VANILLA PO SCH ×2 (08:36→14:00)
[2017-04-30] MEDS: DEXLANSOPRAZOLE 60 MG CAPDR PO SCH (08:37)
[2017-04-30] MEDS: MAGNESIUM OXIDE 400 MG TAB PO SCH (08:37)
[2017-04-30] MEDS: DOCUSATE SODIUM 100 MG CAP PO SCH (08:37)
[2017-04-30] MEDS: ESCITALOPRAM OXALATE 20 MG TAB PO SCH (08:37)
[2017-04-30] MEDS: GABAPENTIN 600 MG TAB PO SCH ×2 (08:37→14:00)
[2017-04-30] MEDS: DRONABINOL 2.5 MG CAP PO SCH ×3 (08:38→18:04)
[2017-04-30] MEDS: CETIRIZINE HCL 10 MG TAB PO SCH (08:38)
[2017-04-30] MEDS: SENNA 8.6 MG TAB PO SCH (08:38)
[2017-04-30] MEDS: ENOXAPARIN 40 MG/0.4 ML SYR SQ SCH (08:38)
--- NOTE | 2017-04-30 11:06 | Infectious Disease Progress Nt ---
Progress Note Date of Service Apr 30, 2017. Subjective Pt evaluation today including: conversation w/ patient, conversation w/ family , physical exam, chart review, lab review, review of studies, conversation w/ [facility] consultant, review of inpatient medication list No bed available at the [facility] yesterday, patient still awaiting possible transfer. Feeling better, has remained afebrile. Now on ceftriaxone, tolerating without apparent difficulty. White count starting to increase. No other new complaints. All Other Systems: Reviewed and Negative Medications Current Inpatient Medications Medications (Trade) Dose Ordered Sig/Sidney Route Start Time Stop Time Status Last Admin Dose Admin Dronabinol (Marinol Cap) 5 mg TIDM PO 04/26/17 08:00 05/26/17 07:59 04/30/17 08:38 5 MG Lorazepam (Ativan Tab) 1 mg HS PO 04/26/17 21:00 05/26/17 20:59 04/29/17 21:59 1 MG Methadone HCl (Dolophine Tab) 15 mg Q8 PO 04/26/17 06:00 05/10/17 05:59 04/30/17 06:12 15 MG Oxycodone HCl (Roxicodone Immediate Rel Tab) 10 mg Q4 PRN PO 04/26/17 04:00 05/10/17 03:59 Miscellaneous Information (Order Awaiting Action) 1 ea QS N/A 04/26/17 08:00 05/26/17 07:59 Cetirizine HCl (zyrTEC TAB) 10 mg DAILY PO 04/26/17 08:00 05/26/17 07:59 04/30/17 08:38 10 MG Miscellaneous Information (Order Awaiting Action) 1 ea QS N/A 04/26/17 08:00 05/26/17 07:59 Senna (Senokot Tab) 17.2 mg AMHS PO 04/26/17 20:00 05/26/17 19:59 04/30/17 08:38 17.2 MG Acetaminophen (Tylenol Tab) 650 mg Q4H PRN PO 04/26/17 07:45 05/26/17 07:44 Al Hydrox/Mg Hydrox/Simethicone (Maalox Max Susp) 15 ml Q4H PRN PO 04/26/17 07:45 05/26/17 07:44 Bisacodyl (Dulcolax Tab) 10 mg HS PRN PO 04/26/17 07:45 05/26/17 07:44 Docusate Sodium (coLACE CAP) 100 mg QAM PO 04/26/17 08:00 05/26/17 07:59 04/30/17 08:37 100 MG Docusate Sodium (coLACE CAP) 200 mg HS PO 04/26/17 21:00 05/26/17 20:59 04/29/17 21:59 200 MG Escitalopram Oxalate (Lexapro Tab) 20 mg QAM PO 04/26/17 08:00 05/26/17 07:59 04/30/17 08:37 20 MG Gabapentin (Neurontin Tab) 600 mg TID PO 04/26/17 08:00 05/26/17 07:59 04/30/17 08:37 600 MG Magnesium Hydroxide (Milk Of Magnesia Susp) 30 ml Q6H PRN PO 04/26/17 08:00 05/26/17 07:59 Ondansetron HCl (Zofran Inj) 4 mg Q6H PRN IV 04/26/17 08:00 05/26/17 07:59 Heparin Sodium (Porcine) (Heparin 100 Unit/ml 5ml Flush) 5 ml PRN PRN IV 04/26/17 08:00 05/26/17 07:59 04/30/17 05:34 5 ML Magnesium Oxide (Mag-Ox Tab) 400 mg QAM PO 04/27/17 08:00 05/27/17 07:59 04/30/17 08:37 400 MG Venetoclax (Venclexta) 1,200 mg DAILY@1500 PO 04/26/17 15:00 05/26/17 14:59 04/29/17 15:30 1,200 MG Dexlansoprazole (Dexilant Dr) 30 mg HS PO 04/26/17 21:00 05/26/17 20:59 Dexlansoprazole (Dexilant Dr) 60 mg QAM PO 04/27/17 08:00 05/27/17 07:59 04/30/17 08:37 60 MG Triamcinolone Acetonide (Triamcinolone Dental Paste) 1 appln TID MT 04/27/17 20:00 05/27/17 19:59 04/30/17 08:36 1 APPLN Lidocaine HCl/ Diphenhydramine HCl/Al Hydroxide/ Mg Hydroxide/ Glycerin/Barcode TID MT 04/27/17 15:00 05/27/17 14:59 04/30/17 08:36 5 ML Enoxaparin Sodium (Lovenox Inj) 40 mg QAM SQ 04/29/17 08:00 05/29/17 07:59 04/30/17 08:38 40 MG Ioversol (Optiray 320) 111 ml UD PRN IV 04/28/17 12:30 05/02/17 12:29 Enteral Nutritional Formula (Boost) 1 can TID PO 04/28/17 14:00 05/28/17 13:59 04/30/17 08:36 1 CAN Ceftriaxone Sodium 2000 mg/ Dextrose 70 ml @ 100 mls/hr Q24H IV 04/29/17 22:00 05/13/17 21:59 04/30/17 01:22 100 MLS/HR Objective Vital Signs Date Time Temp Pulse Resp B/P (MAP) Pulse Ox O2 Delivery O2 Flow Rate FiO2 04/30/17 08:00 94 Room Air 04/30/17 07:15 36.6 68 16 108/56 (73) 94 Room Air 04/30/17 03:00 36.4 72 18 116/74 (88) 99 Room Air 04/30/17 00:30 96 Room Air 04/30/17 00:05 36.6 67 18 111/67 96 04/30/17 00:02 36.1 76 18 114/73 100 04/29/17 23:06 36.9 63 18 109/71 (84) 94 Room Air 04/29/17 23:05 36.9 63 18 109/71 94 04/29/17 22:25 36.4 75 18 107/67 92 04/29/17 22:07 35.7 75 18 99/55 94 04/29/17 21:50 36.0 85 14 102/60 100 04/29/17 21:35 36.4 71 18 107/67 04/29/17 20:00 Room Air 04/29/17 19:34 36.1 83 18 94/60 (71) 94 Room Air 04/29/17 16:00 Room Air 04/29/17 15:24 36.6 69 16 95/60 (72) 94 1/8/18 11:54 36.4 101 18 89/48 (62) 91 Room Air Physical Exam General Appearance: WD/WN, no apparent distress Eyes: normal inspection, EOMI, sclerae normal ENT: normal ENT inspection, pharynx normal Neck: supple, no adenopathy, trachea midline Respiratory/Chest: chest non-tender, lungs clear, normal breath sounds, no respiratory distress Cardiovascular: regular rate, rhythm, no gallop, no murmur Abdomen: normal bowel sounds, non tender, soft, no organomegaly Extremities: non-tender, no calf tenderness Neurologic/Psychiatric: alert, oriented x 3 Skin: normal color, warm/dry, no rash Lymphatic: no adenopathy Laboratory Results Last 24 Hours Test 04/30/17 05:36 White Blood Count 0.73 K/uL Red Blood Count 3.30 M/uL Hemoglobin 9.9 g/dL Hematocrit 29.1 % Mean Corpuscular Volume 88.2 fL Mean Corpuscular Hemoglobin 30.0 pg Mean Corpuscular Hemoglobin Concent 34.0 g/dl Platelet Count 137 K/uL Mean Platelet Volume 9.5 fL RDW Standard Deviation 53.8 fL RDW Coefficient of Variation 17.2 % Neutrophils % (Manual) 64.2 % Lymphocytes % (Manual) 20.2 % Monocytes % (Manual) 14.7 % Blast Cells % 0.9 % Neutrophils # (Manual) 0.47 K/uL Total Absolute Neutrophils 0.47 K/uL Lymphocytes # (Manual) 0.15 K/uL Total Absolute Lymphocytes 0.15 K/uL Monocytes # (Manual) 0.11 K/uL Hypersegmented Polys 2+ Blast Cells # 0.01 K/uL Toxic Granulation 2+ Toxic Vacuolation 1+ Large Platelets 1+ Sodium Level 138 mmol/L Potassium Level 4.7 mmol/L Chloride Level 102 mmol/L Carbon Dioxide Level 31 mmol/L Anion Gap 5.0 mmol/L Blood Urea Nitrogen 29 mg/dl Creatinine 1.33 mg/dl Est Creatinine Clear Calc Drug Dose 88.4 ml/min Estimated GFR () 80.3 Estimated GFR (Non- 69.3 BUN/Creatinine Ratio 21.5 Random Glucose 88 mg/dl Calcium Level 9.8 mg/dl Total Bilirubin 0.4 mg/dl Aspartate Amino Transf (AST/SGOT) 9 U/L Alanine Aminotransferase (ALT/SGPT) 21 U/L Alkaline Phosphatase 131 U/L Total Protein 6.8 gm/dl Albumin 3.0 gm/dl Globulin 3.8 gm/dl Albumin/Globulin Ratio 0.8 Assessment and Plan 32-year-old male with aggressive lymphoma now with Citrobacter bacteremia with 1 culture also positive for strep in the setting of profound neutropenia from chemotherapy. Patient remains afebrile and white count now increasing. Patient to continue on ceftriaxone pending transfer to [facility]. Given Gram-negative bacteremia, removal of a port must be considered, but decision for this will be left to his physicians at the [facility].
[2017-04-30] MEDS ORDERED: VANCOMYCIN TROUGH ONE (11:30)
[2017-04-30] MEDS ORDERED: CEFT1INJ57 IV (14:12)
[2017-04-30] MEDS ORDERED: CEFTRIAXONE SOD INJ 2,000 MG in DEXTROSE 5% 50ML 50 ML IV SCH (15:00)
[2017-04-30] MEDS: VENETOCLAX 100 MG TAB PO SCH (16:09)
--- NOTE | 2017-04-30 16:25 | Discharge Summary ---
Discharge Summary Date of Service Apr 30, 2017. Discharge Summary Admission Date: Apr 26, 2017 at 03:59 Discharge Date: Apr 30, 2017 Discharge Disposition: Home Principal Diagnosis: Bacteremia Problems/Secondary Diagnoses: Neutropenic fever Pancytopenia secondary to chemotherapy Perianal pustule Non-Hodgkin Lymphoma Immunizations: Have You Had Influenza Vaccine: No History of Tetanus Vaccine?: Unknown History of Pneumococcal: Unknown History of Hepatitis B Vaccine: Unknown Consultations: Oncology (Dr Craig) Infectious Disease (Dr Conde) Medication Reconciliation New Medications: Ceftriaxone Sod (Rocephin) 1 Gm Inj 2 GM IV Q24H for 9 Days, VIAL Magnesium Oxide (Magnesium-Oxide) 400 Mg Tab 400 MG PO QAM for 7 Days, TAB Triamcinolone Acet (Triamcinolone Acetonide) 15 Appln/5 Gm Pste 1 APPLN MT TID for 7 Days [Enteral Nutrition Formula] () 1 CAN LIQD 1 CAN PO TID for 7 Days Continued Medications: Acyclovir (Zovirax) 800 Mg Tab 800 MG PO BID Bisacodyl (Bisacodyl) 5 Mg Tab 2 TAB PO HS PRN for Constipation Cefpodoxime Proxetil (Cefpodoxime Proxetil) 200 Mg Tab 1 TAB PO BID, TAB Cetirizine Hcl (Cetirizine Hcl) 10 Mg Chw 1 TAB PO DAILY Dexlansoprazole (Dexilant) 60 Mg Cap 60 MG PO QAM Dexlansoprazole (Dexilant) 30 Mg Cap 30 MG PO HS PRN for gerd Docusate Sodium (Docusate Sodium) 100 Mg Cap 100 MG PO QAM Docusate Sodium (Docusate Sodium) 100 Mg Cap 200 MG PO HS Dronabinol (Marinol) 2.5 Mg Cap 5 MG PO TIDM Escitalopram Oxalate (Lexapro) 20 Mg Tab 20 MG PO QAM Gabapentin (Gabapentin) 600 Mg Tab 600 MG PO TID Lorazepam (Ativan) 1 Mg Tab 1 MG PO HS Methadone Hcl (Dolophine) 10 Mg Tab 15 MG PO Q8 Oxycodone Immediate Rel Tab (Roxicodone Ir) 5 Mg Tab 10-15 MG PO Q4 PRN for Pain, TAB Phenol-Sodium Borate (Ulcerease) 1 Viky Viky 15 ML PO Q6H SWISH AND SPIT Sennosides (Senna-Lax) 8.6 Mg Tab 2 TABS PO AMHS Sulfa/Trimethoprim (Bactrim Ds 800MG/160MG) Tab 1 TAB PO 3XWK, #6 TAB MON,WED,FRI Venetoclax (Venclexta) 100 Mg Tab 12 TABS PO DAILY@1500 [Magic Mouth Wash] () 5 ML PO Q4H SWISH AND SPIT Discharge Exam Mr Reyes is feeling his normal self today. Pain from pustule improving. [place] like it had drained yesterday but no change noticed on surgery notes. He denies any worsening chest pain, shortness of breath or cough. He discussed with his oncologist (Dr Sosa) at [facility] and can likely have antibiotic at [facility] tomorrow so as long as he has his dose today he can get the rest of his 14 day course there if discharged. Physical Exam: General Appearance: no apparent distress Respiratory/Chest: chest non-tender, lungs clear, normal breath sounds, no respiratory distress, no accessory muscle use Cardiovascular: regular rate, rhythm, no murmur, normal peripheral pulses Abdomen / GI: normal bowel sounds, soft, + tenderness (chronic mild tenderness to palpation, no acute change), + pertinent finding (perianal pustule was not examined but appeared to be stable/improving yesterday and no worsening symptoms) Neurologic/Psychiatric: formulation technician II-XII nml as tested (no facial droop), no motor /sensory deficits, alert (confusion has consistently improved since admission), normal mood/affect, oriented x 3 Skin: normal color, warm/dry, no rash Hospital Course Mr Reyes is a 32 year old male with refractory non-Hodgkins Lymphoma who presented to [facility] on April 26 with cough for the past week and 1 day of fever. On arrival he was found to be neutropenic with total WBC 0.09. No source of infection was identified on examination, CXR or urine analysis. He was empirically treated with IV vancomycin and IV cefepime. Subsequent blood cultures (1 from his port, 1 peripherally) grew gram negative bacilli (Citrobacter Freundii complex) in both sets (please see micro for sensitivities) and alpha strep (not enterococcus from 1/2 sets). Follow up blood cultures were taken on 04/28/17 and are negative to date on discharge. His WBC has slowly improved and he has not been septic. He had some mild confusion on admission but this has been improving on daily basis. On 04/28/16 he complained of rectal pain and was found to have a small perianal pustule which is not thought to be the source of his infection. It is small, superficial and improving. Discussed with surgery and oncology and decided for watchful waiting. His care was discussed with his primary oncologist Dr Mavis Sosa who has arranged outpatient continuation of his ceftriaxone for the next 2 days and he will be admitted on Saturday which is already planned for his chemotherapy and will continue antibiotics as an inpatient then. The patient was discharged with copies of the printed copies of his CT report, US report, blood culture microscopy and sensitivities. Total Time Spent: Greater than 30 minutes This includes examination of the patient, discharge planning, medication reconciliation, and communication with other providers. Discharge Instructions Please refer to the electronic Patient Visit Report (Discharge Instructions) for additional information. Follow-Up [facility] 05/01/17 for continuation of your ceftriaxone dose as arranged by Dr Sosa. Additional Copies To Crow Craig D.O.; Marquez Conde MD; Mavis Sosa M.D.; Dorian Franz M.D. Reviewed: Pt Seen/Exam by Me History continues to be afebrile denies any other concerns Constitutional: denies: fever Respiratory: negative: short of breath Cardiovascular: denies chest pain Gastrointestinal/Abdominal: negative: abdominal pain Genitourinary: negative dysuria General Appearance: no apparent distress Respiratory: lungs clear, no respiratory distress Cardiovascular: regular rate, rhythm Gastrointestinal: soft Neurologic/Psychiatric: alert, oriented x 3 Skin Characteristics: warm/dry Assessment/Plan Resident Physician Supervision Note: I independently interviewed and examined the patient and verified the linton history and physical, reviewed labs and image studies, discussed the case with the resident Dr. Garzon and agree with the findings and care plan. Time spent in discharge 35 min
== END 2017-04-30 18:50 | disposition home or self-care (01) | DRG 871 ==
LOC: C.EDB 02:03 → C.4E 03:59 → UNDOADMIN 03:59 → EDBEDREQSVC 04:05 → ENRESERV 04:54
PROVIDERS: ADMIT Student in an Organized Health Care Education/Training Program; ATTEND Family Medicine
DX: A41.59 Other Gram-negative sepsis (principal); D61.811 Other drug-induced pancytopenia; C85.10 Unspecified B-cell lymphoma, unspecified site; R06.6 Hiccough; G62.9 Polyneuropathy, unspecified; K21.9 Gastro-esophageal reflux disease without esophagitis; T45.1X5A Adverse effect of antineoplastic and immunosuppressive drugs, initial encounter; L08.9 Local infection of the skin and subcutaneous tissue, unspecified; B96.89 Other specified bacterial agents as the cause of diseases classified elsewhere; Z88.2 Allergy status to sulfonamides; F41.9 Anxiety disorder, unspecified; D64.81 Anemia due to antineoplastic chemotherapy; K59.03 Drug induced constipation; T40.605A Adverse effect of unspecified narcotics, initial encounter; Y92.019 Unspecified place in single-family (private) house as the place of occurrence of the external cause

== ENCOUNTER 2017-05-13 15:56 | Inpatient (IN) | payer OTHER ==
[~2017-05-13] VITALS: Ht 185.4 cm; Wt 87.8 kg
[~2017-05-13 15:56] MED LIST changes: -LEVO1TAB33 PO; -NUTR-25 PO
[2017-05-13] MEDS ORDERED: SODIUM CHLORIDE 0.9% 1000ML 2,000 ML IV STA (16:46)
--- NOTE | 2017-05-13 17:03 | DIAGNOSTIC IMAGING REPORT ---
CHEST ONE VIEW PORTABLE HISTORY: 32 years-old Male fever acute fever COMPARISON: Chest radiograph 04/26/2017, 03/12/2017, 02/25/[address] 02/25/2017 TECHNIQUE: Portable AP view of the chest FINDINGS: Cardiac silhouette is within normal limits. Mediastinal contours are within normal limits. Right pectoral Xqdnml-[id number]-Logt catheter is unchanged. There is no pneumothorax or pleural effusion. The right lung is clear. Linear subsegmental atelectasis or scarring of the lateral left midlung is unchanged with persistent consolidation of the left lower lobe which appears stable bones of the chest appear grossly intact. IMPRESSION: 1. Persistent consolidation of the left lower lobe. 2. Linear subsegmental atelectasis or scarring of the lateral left midlung. The above report was generated using voice recognition software. It may contain grammatical, syntax or spelling errors. Electronically signed by: Fredis Sal M.D. 05/13/2017 5:01 PM Dictated Date/Time: 05/13/2017 4:59 PM
[2017-05-13] MEDS ORDERED: LEVO1TAB33 PO (17:35)
[2017-05-13] MEDS ORDERED: NUTR-25 PO (17:40)
[2017-05-13 17:46] LABS: ISTAT CREATININE 1.3 mg/dl (0.6-1.3); ISTAT IONIZED CALCIUM 1.29 mmol/l (1.12-1.32); ISTAT POTASSIUM 4.5 mEq/L (3.3-5.0)
[2017-05-13 17:46] LABS: ALBUMIN 3.3 gm/dl (3.4-5.0); ALT/SGPT 20 U/L (12-78); AST/SGOT 5 U/L (15-37); BLOOD UREA NITROGEN 40 mg/dl (7-18); CARBON DIOXIDE 26 mmol/L (21-32); CREATININE 1.27 mg/dl (0.60-1.40); GLUCOSE 97 mg/dl (70-99); POTASSIUM 4.4 mmol/L (3.5-5.1); SODIUM 136 mmol/L (136-145)
[2017-05-13 17:51] LABS: ALKALINE PHOSPHATASE 92 U/L (45-117); CKMB 0.6 ng/ml (0.5-3.6); TOTAL PROTEIN 6.1 gm/dl (6.4-8.2)
[2017-05-13 17:56] LABS: HEMATOCRIT 29.3 % (42-52); HEMOGLOBIN 9.9 g/dL (14.0-18.0); MEAN CELL VOLUME 89.1 fL (80-100); MEAN CORPUSCULAR HEMOGLOBIN 30.1 pg (25-34); MEAN CORPUSCULAR HGB CONC 33.8 g/dl (32-36); MEAN PLATELET VOLUME 9.1 fL (7.4-10.4); PLATELET COUNT 48 K/uL (130-400); RED CELL DISTRIBUTION WIDTH CV 16.2 % (11.5-14.5); RED CELL DISTRIBUTION WIDTH SD 52.2 fL (36.4-46.3); WHITE BLOOD COUNT 0.06 K/uL (4.8-10.8)
[2017-05-13] MEDS ORDERED: CEFEPIME IV 1,000 MG in DEXTROSE 5% 100ML 100 ML IV STA (18:36)
[2017-05-13] MEDS ORDERED: LEVAQUIN 750MG / 150ML D5W IV STA (18:36)
[2017-05-13 19:03] LABS: INFLUENZA B ANTIGEN Neg for Influ B (NEG)
[2017-05-13] MEDS ORDERED: BISACODYL 5 MG TABEC PO PRN (19:45)
[2017-05-13] MEDS ORDERED: CEFEPIME IV 2,000 MG in DEXTROSE 5% 100ML 100 ML IV SCH (19:45)
[2017-05-13] MEDS ORDERED: NON-FORMULARY MEDICATION SCH (19:45)
[2017-05-13] MEDS ORDERED: ACETAMINOPHEN 325 MG TAB PO PRN (19:45)
[2017-05-13] MEDS ORDERED: ONDANSETRON INJ 2 MG/ML 2 ML VIAL IV PRN (19:45)
[2017-05-13] MEDS ORDERED: OXYCODONE HCL IR 5 MG TAB (IMMEDIATE RELEASE) PO PRN (19:45)
[2017-05-13] MEDS ORDERED: MAGNESIUM HYDROXIDE SUSP 30 ML UDC PO PRN (19:45)
[2017-05-13] MEDS ORDERED: NON-FORMULARY MEDICATION (Dexlansoprazole (Dexilant) 30 MG) PO PRN (19:45)
[2017-05-13] MEDS ORDERED: MAGIC MOUTH WASH PO SCH (19:45)
--- NOTE | 2017-05-13 19:55 | History and Physical ---
History & Physical Date & Time of Service: May 13, 2017 at 19:44 Chief Complaint: Heart Flutter, Tired Primary Care Physician: Dorian Franz M.D. History of Present Illness Source: patient 32 y/o M who was [facility] after being found hypoTN and tachycardic today at a lab appt. Pt states he felt off today. His last chemo was last Saturday and he generally starts to feel improved by now. He had felt better yesterday, but woke up today not feeling as well. He notes he had decreased UOP yesterday and states he has felt this way prior when dehydrated. He has been eating, but not drinking much. Pt denies fever, SOB, chest pain, abd pain, n/v, unusual LE pain or swelling. He always has LE pain after chemo and his pain is c/w this. He states he was constipated yesterday but that this resolved with his usual bowel prep. Pt feels it would be unusual for him to present this way with an infection. He just finished a course of levaquin for a recent bacteremia and was set to resume his prophylactic dose today. Pt states that he has had issues with his cr -> >2 in the past so he is not to have IV contrast. He notes he is part of a clinical trial and takes a very high dose of Venetoclax 1200mg Past Medical/Surgical History Medical Problems: (1) GERD (gastroesophageal reflux disease) Status: Chronic (2) Lymphoma Status: Chronic Surgical Problems: (1) History of liver biopsy Status: Resolved Chronic pain Family History Family history was reviewed; no changes noted. Social History Smoking Status: Never Smoker Alcohol Use: none Drug Use: none Marital Status: Housing status: lives with family Occupational Status: employed Immunizations History of Influenza Vaccine: No History of Tetanus Vaccine?: Unknown History of Pneumococcal: Unknown History of Hepatitis B Vaccine: Unknown Multi-Drug Resistant Organisms History of MDRO: No Allergies Coded Allergies: Erythromycin (Verified Adverse Reaction, Intermediate, GI SYMPTOMS, ) Prochlorperazine (Verified Adverse Reaction, Unknown, change in mental status, 05/13/17) Home Medications Scheduled Acyclovir (Zovirax), 800 MG PO BID Cefpodoxime Proxetil (Cefpodoxime Proxetil), 1 TAB PO BID Cetirizine Hcl (Cetirizine Hcl), 1 TAB PO DAILY Dexlansoprazole (Dexilant), 60 MG PO QAM Docusate Sodium (Docusate Sodium), 100 MG PO QAM Docusate Sodium (Docusate Sodium), 200 MG PO HS Dronabinol (Marinol), 5 MG PO TIDM Enteral Nutrition Formula (Boost Plus), 1 CAN PO TID Escitalopram Oxalate (Lexapro), 20 MG PO QAM Gabapentin (Gabapentin), 600 MG PO TID Levofloxacin (Levaquin), 500 MG PO DAILY Lorazepam (Ativan), 1 MG PO HS Methadone Hcl (Dolophine), 15 MG PO Q8 Phenol-Sodium Borate (Ulcerease), 15 ML PO Q6H Sennosides (Senna-Lax), 2 TABS PO AMHS Sulfa/Trimethoprim (Bactrim Ds 800MG/160MG), 1 TAB PO 3XWK Triamcinolone Acet (Triamcinolone Acetonide), 1 APPLN MT TID Venetoclax (Venclexta), 12 TABS PO DAILY@1500 [Magic Mouth Wash], 5 ML PO Q4H Scheduled PRN Bisacodyl (Bisacodyl), 2 TAB PO HS PRN for Constipation Dexlansoprazole (Dexilant), 30 MG PO HS PRN for gerd Oxycodone Immediate Rel Tab (Roxicodone Ir), 10-15 MG PO Q4 PRN for Pain Review of Systems Pertinent positives and negatives reviewed in HPI--all others negative Physical Exam Vital Signs Date Time Temp Pulse Resp B/P (MAP) Pulse Ox O2 Delivery O2 Flow Rate FiO2 05/13/17 18:00 82 18 99/62 100 Room Air 05/13/17 17:28 100 Room Air 05/13/17 17:04 110 05/13/17 16:27 36.8 148 20 74/43 98 Room Air General Appearance: WD/WN, no apparent distress Head: normocephalic, atraumatic Eyes: normal inspection, EOMI, sclerae normal Respiratory/Chest: lungs clear, normal breath sounds, no respiratory distress Cardiovascular: regular rate, rhythm, no edema Abdomen/GI: non tender, soft Extremities/Musculoskelatal: no calf tenderness, no pedal edema Neurologic/Psych: alert, normal mood/affect, oriented x 3 Skin: normal color, warm/dry Diagnostics Laboratory Results Results Past 24 Hours Test 05/13/17 17:18 05/13/17 17:21 05/13/17 17:33 Range/Units White Blood Count 0.06 4.8-10.8 K/uL Red Blood Count 3.29 4.7-6.1 M/uL Hemoglobin 9.9 14.0-18.0 g/dL Hematocrit 29.3 42-52 % Mean Corpuscular Volume 89.1 80-100 fL Mean Corpuscular Hemoglobin 30.1 25-34 pg Mean Corpuscular Hemoglobin Concent 33.8 32-36 g/dl Platelet Count 48 130-400 K/uL Mean Platelet Volume 9.1 7.4-10.4 fL RDW Standard Deviation 52.2 36.4-46.3 fL RDW Coefficient of Variation 16.2 11.5-14.5 % Prothrombin Time 10.0 9.0-12.0 SECONDS Prothromb Time International Ratio 1.0 0.9-1.1 Sodium Level 136 136-145 mmol/L Potassium Level 4.4 3.5-5.1 mmol/L Chloride Level 104 98-107 mmol/L Carbon Dioxide Level 26 21-32 mmol/L Anion Gap 6.0 17.0 16-25 mmol/L Blood Urea Nitrogen 40 7-18 mg/dl Creatinine 1.27 0.60-1.40 mg/dl Est Creatinine Clear Calc Drug Dose 92.6 ml/min Estimated GFR () 84.9 Estimated GFR (Non- 73.2 BUN/Creatinine Ratio 31.5 10-20 Random Glucose 97 70-99 mg/dl Bedside Lactic Acid Venous 1.09 0.90-1.70 mmol/L Calcium Level 9.0 8.5-10.1 mg/dl Magnesium Level 1.6 1.8-2.4 mg/dl Total Bilirubin 0.6 0.2-1 mg/dl Direct Bilirubin 0.2 0-0.2 mg/dl Aspartate Amino Transf (AST/SGOT) 5 15-37 U/L Alanine Aminotransferase (ALT/SGPT) 20 12-78 U/L Alkaline Phosphatase 92 45-117 U/L Total Creatine Kinase 13 39-308 U/L Creatine Kinase MB 0.6 0.5-3.6 ng/ml Creatine Kinase MB Ratio 4.6 0-3.0 Troponin I < 0.015 0-0.045 ng/ml Total Protein 6.1 6.4-8.2 gm/dl Albumin 3.3 3.4-5.0 gm/dl Influenza Type A Antigen Neg for Influ A NEG Influenza Type B Antigen Neg for Influ B NEG Bedside Hemoglobin 8.8 14.0-18.0 g/dl Bedside Hematocrit 26 42-52 % Bedside Sodium 138 135-144 mEq/L Bedside Potassium 4.5 3.3-5.0 mEq/L Bedside Chloride 101 101-112 mEq/L Bedside Total CO2 25 24-31 mEq/l Bedside Blood Urea Nitrogen 36 7-18 mg/dl Bedside Creatinine 1.3 0.6-1.3 mg/dl Bedside Glucose (other) 99 70-99 mg/dl Bedside Ionized Calcium (Rodolfo) 1.29 1.12-1.32 mmol/l Microbiology Results 05/13/17 Blood Culture, Received Pending 05/13/17 Blood Culture, Received Pending Diagnostic Radiology CXR with persistent LLL consolidation Impression Assessment and Plan 32 y/o M who was admitted on 05/13 with concerns for possible infection and neutropenia HypoTN/tachycardia: resolved s/p IVF and levaquin/cefepime Pt states this is how he has felt in the past with dehydration and not infection CXR noted as stable from prior and no exam findings c/w PNA Will continue with abx for now Blood cx pending CT chest w/o contrast pending for further clarification Flu swab pending Neutropenic There has been concern that his port could be a source of infection, however no proof of this UA pending IVF B cell lymphoma: as prior Neutropenic Hem/onc c/s pending Continue other prophylactic meds Continue chemo meds, father will return with non-formulary meds GERD: continue home meds Continue pain medications Other: Hold on rx DVT proph given low platelet count Neutropenic diet Level of Care Med/Surg Resuscitation Status FULL RESUSCITATION VTE Prophylaxis VTE Risk Assessment Done? Y/N: Yes Risk Level: Low
--- NOTE | 2017-05-13 20:33 | DIAGNOSTIC IMAGING REPORT ---
(CHEST) THORAX WITHOUT CT DOSE: 486.13 mGy.cm HISTORY: Pneumonia. Lymphoma. Nodularity. ? PNA TECHNIQUE: Multiaxial CT images of the chest were performed without contrast. A dose lowering technique was utilized adhering to the principles of ALARA. COMPARISON: 02/25/2017 FINDINGS: Rather significant improvement in the exam compared to the prior study. Central catheter remains in superior vena cava. Left pleural effusion has shown near complete resolution. Left upper lung pleural-based density as well as the region of the associated pleural-based nodule are considerably diminished in prominence. The pleural based density has diminished from 1.7 cm to 8 mm. The parenchymal nodule posterior to the pleural based lesion currently measures 8 mm diminished from 13 mm. The large consolidative process posterior aspect left lower lobe is considerably diminished in volume. Maximum current transaxial dimension is 6.2 cm diminished from 8.3 cm. The associated left pleural effusion is considerably diminished as well with only minimal residual. Limited evaluation the upper abdomen remains unremarkable. IMPRESSION: 1. Examination overall is markedly improved with a considerable decrease in the pleural based densities, parenchymal nodularity, as well as near complete resolution of the patient's left pleural effusion. 2. Continued follow-up to complete resolution is suggested. 3. No evidence for progressive components based on this study. The above report was generated using voice recognition software. It may contain grammatical, syntax or spelling errors. Electronically signed by: Ivan Moreno M.D. 05/13/2017 8:32 PM Dictated Date/Time: 05/13/2017 8:27 PM
[2017-05-13] MEDS: BOOST PLUS VANILLA PO SCH (20:59)
[2017-05-13] MEDS ORDERED: CEFPODOXIME PROXETIL PO SCH (20:59)
[2017-05-13] MEDS: TRIAMCINOLONE ACET 0.1% ORABASE 5 GM TUBE MT SCH (20:59)
[2017-05-13 21:17] VITALS: BP 102/77; PULSE 106; TEMP 36.5; O2SAT 100
[2017-05-13] MEDS ORDERED: ESCITALOPRAM OXALATE 20 MG TAB PO STA (21:22)
[2017-05-13] MEDS ORDERED: VENETOCLAX 100 MG TAB PO STA (21:48)
[2017-05-13] MEDS: METHADONE HCL 10 MG TAB PO SCH (21:59)
[2017-05-13] MEDS: LORAZEPAM 1 MG TAB PO SCH (21:59)
[2017-05-13] MEDS ORDERED: DEXLANSOPRAZOLE 30 MG PO PRN (22:00)
[2017-05-13] MEDS: DOCUSATE SODIUM 100 MG CAP PO SCH (22:01)
[2017-05-13] MEDS: SENNA 8.6 MG TAB PO SCH (22:01)
[2017-05-13] MEDS: ACYCLOVIR 400 MG TAB PO SCH (22:02)
[2017-05-13] MEDS: GABAPENTIN 600 MG TAB PO SCH (22:03)
[2017-05-13] MEDS: SODIUM CHLORIDE 0.9% 1000ML 1,000 ML IV SCH (22:05)
[2017-05-13] MEDS: CETIRIZINE HCL 10 MG TAB PO SCH (22:09)
[2017-05-13 22:26] VITALS: O2SAT 100; Ht 185.4 cm; Wt 87.8 kg
--- NOTE | 2017-05-13 22:41 | EMERGENCY ROOM VISIT NOTE ---
History Report prepared by Alie: Dagoberto Still Under the Supervision of: Dr. Dc Montano D.O. First contact with patient: 16:32 Chief Complaint: CARDIAC ASSESSMENT Stated Complaint: HEART FLUTTER, TIRED History of Present Illness The patient is a 32 year old male who presents to the Emergency Room with complaints of an episode of tachycardia and a heart flutter occurring today. The patient states that he went in for post-chemo blood work today, and was told that he was hypertensive, had a bit of a cardiac flutter, and had a mildly elevated blood pressure. He notes that he currently has B cell lymphoma, for which he is receiving regular chemotherapy. The patient also complains of chest pain, fatigue, lightheadedness when he stands up, runny nose, cough, and abdominal pain. Pt denies headache, change in vision, fevers, shortness of breath, nausea, vomiting, diarrhea, pain with urination, and melena. Source of History: patient Onset: today Position: other (global) Quality: other (tachycardia, heart flutter) Timing: other (an episode ) Associated Symptoms: + cough, + chest pain, + abdominal pain, No fevers, No headache, No SOB, No nausea, No vomiting, No diarrhea, No urinary symptoms Note: He also complains of lightheadedness when he stands up, fatigue, and a runny nose. He denies having melena. Review of Systems See HPI for pertinent positives & negatives. A total of 10 systems reviewed and were otherwise negative. Past Medical & Surgical Medical Problems: (1) Anemia (2) GERD (gastroesophageal reflux disease) (3) Hypotension (4) Lymphoma (5) Neutropenic fever (6) Sore throat Surgical Problems: (1) History of liver biopsy Family History Cancer Heart disease Social History Smoking Status: Never Smoker Drug Use: none Marital Status: Housing Status: lives with significant other Occupation Status: employed Current/Historical Medications Scheduled Acyclovir (Zovirax), 800 MG PO BID Cefpodoxime Proxetil (Cefpodoxime Proxetil), 1 TAB PO BID Cetirizine Hcl (Cetirizine Hcl), 1 TAB PO DAILY Dexlansoprazole (Dexilant), 60 MG PO QAM Docusate Sodium (Docusate Sodium), 100 MG PO QAM Docusate Sodium (Docusate Sodium), 200 MG PO HS Dronabinol (Marinol), 5 MG PO TIDM Enteral Nutrition Formula (Boost Plus), 1 CAN PO TID Escitalopram Oxalate (Lexapro), 20 MG PO QAM Gabapentin (Gabapentin), 600 MG PO TID Levofloxacin (Levaquin), 500 MG PO DAILY Lorazepam (Ativan), 1 MG PO HS Methadone Hcl (Dolophine), 15 MG PO Q8 Phenol-Sodium Borate (Ulcerease), 15 ML PO Q6H Sennosides (Senna-Lax), 2 TABS PO AMHS Sulfa/Trimethoprim (Bactrim Ds 800MG/160MG), 1 TAB PO 3XWK Triamcinolone Acet (Triamcinolone Acetonide), 1 APPLN MT TID Venetoclax (Venclexta), 12 TABS PO DAILY@1500 [Magic Mouth Wash], 5 ML PO Q4H Scheduled PRN Bisacodyl (Bisacodyl), 2 TAB PO HS PRN for Constipation Dexlansoprazole (Dexilant), 30 MG PO HS PRN for gerd Oxycodone Immediate Rel Tab (Roxicodone Ir), 10-15 MG PO Q4 PRN for Pain Allergies Coded Allergies: Erythromycin (Verified Adverse Reaction, Intermediate, GI SYMPTOMS, ) Prochlorperazine (Verified Adverse Reaction, Unknown, change in mental status, 05/13/17) Physical Exam Vital Signs Date Time Temp Pulse Resp B/P (MAP) Pulse Ox O2 Delivery O2 Flow Rate FiO2 05/13/17 18:00 82 18 99/62 100 Room Air 05/13/17 17:28 100 Room Air 05/13/17 17:04 110 05/13/17 16:27 36.8 148 20 74/43 98 Room Air Physical Exam GENERAL: Sitting up in bed, alert, chronically ill appearing EYE EXAM: normal conjunctiva. PERRL and EOM's grossly intact. OROPHARYNX: no exudate, no erythema, lips, buccal mucosa, and tongue normal and mucous membranes are dry NECK: supple, no nuchal rigidity, no adenopathy, non-tender LUNGS: Clear to auscultation. Normal chest wall mechanics HEART: Tachycardic, no murmurs, S1 normal and S2 normal ABDOMEN: abdomen soft, non-tender, normo-active bowel sounds, no masses, no rebound or guarding. BACK: Back is symmetrical on inspection and there is no deformity, no midline tenderness, no CVA tenderness. SKIN: no rashes and no bruising UPPER EXTREMITIES: upper extremities are grossly normal. LOWER EXTREMITIES: No pitting edema, calves equal bilaterally. NEURO EXAM: Normal sensorium, cranial nerves II-XII grossly intact, normal speech, no gross weakness of arms, no gross weakness of legs. Medical Decision & Procedures ER Provider Diagnostic Interpretation: Radiology results as stated below per my review and the radiologist's interpretation: CHEST ONE VIEW PORTABLE HISTORY: 32 years-old Male fever acute fever COMPARISON: Chest radiograph 04/26/2017, 03/12/2017, 02/25/[address] 02/25/2017 TECHNIQUE: Portable AP view of the chest FINDINGS: Cardiac silhouette is within normal limits. Mediastinal contours are within normal limits. Right pectoral [id number] catheter is unchanged. There is no pneumothorax or pleural effusion. The right lung is clear. Linear subsegmental atelectasis or scarring of the lateral left midlung is unchanged with persistent consolidation of the left lower lobe which appears stable bones of the chest appear grossly intact. IMPRESSION: 1. Persistent consolidation of the left lower lobe. 2. Linear subsegmental atelectasis or scarring of the lateral left midlung. The above report was generated using voice recognition software. It may contain grammatical, syntax or spelling errors. Electronically signed by: Fredis Sal M.D. 05/13/2017 5:01 PM Laboratory Results 05/13/17 17:18 Red Blood Count 3.29, Mean Corpuscular Volume 89.1, Mean Corpuscular Hemoglobin 30.1, Mean Corpuscular Hemoglobin Concent 33.8, Mean Platelet Volume 9.1 05/13/17 17:18 Test 05/13/17 17:18 05/13/17 17:21 05/13/17 17:33 White Blood Count 0.06 K/uL (4.8-10.8) Red Blood Count 3.29 M/uL (4.7-6.1) Hemoglobin 9.9 g/dL (14.0-18.0) Hematocrit 29.3 % (42-52) Mean Corpuscular Volume 89.1 fL (80-100) Mean Corpuscular Hemoglobin 30.1 pg (25-34) Mean Corpuscular Hemoglobin Concent 33.8 g/dl (32-36) Platelet Count 48 K/uL (130-400) Mean Platelet Volume 9.1 fL (7.4-10.4) RDW Standard Deviation 52.2 fL (36.4-46.3) RDW Coefficient of Variation 16.2 % (11.5-14.5) Prothrombin Time 10.0 SECONDS (9.0-12.0) Prothromb Time International Ratio 1.0 (0.9-1.1) Est Creatinine Clear Calc Drug Dose 92.6 ml/min Estimated GFR () 84.9 Estimated GFR (Non- 73.2 BUN/Creatinine Ratio 31.5 (10-20) Bedside Lactic Acid Venous 1.09 mmol/L (0.90-1.70) Calcium Level 9.0 mg/dl (8.5-10.1) Magnesium Level 1.6 mg/dl (1.8-2.4) Total Bilirubin 0.6 mg/dl (0.2-1) Direct Bilirubin 0.2 mg/dl (0-0.2) Aspartate Amino Transf (AST/SGOT) 5 U/L (15-37) Alanine Aminotransferase (ALT/SGPT) 20 U/L (12-78) Alkaline Phosphatase 92 U/L (45-117) Total Creatine Kinase 13 U/L (39-308) Creatine Kinase MB 0.6 ng/ml (0.5-3.6) Creatine Kinase MB Ratio 4.6 (0-3.0) Troponin I < 0.015 ng/ml (0-0.045) Total Protein 6.1 gm/dl (6.4-8.2) Albumin 3.3 gm/dl (3.4-5.0) Influenza Type A Antigen Neg for Influ A (NEG) Influenza Type B Antigen Neg for Influ B (NEG) Bedside Hemoglobin 8.8 g/dl (14.0-18.0) Bedside Hematocrit 26 % (42-52) Bedside Sodium 138 mEq/L (135-144) Bedside Potassium 4.5 mEq/L (3.3-5.0) Bedside Chloride 101 mEq/L (101-112) Bedside Total CO2 25 mEq/l (24-31) Anion Gap 17.0 mmol/L (16-25) Bedside Blood Urea Nitrogen 36 mg/dl (7-18) Bedside Creatinine 1.3 mg/dl (0.6-1.3) Bedside Glucose (other) 99 mg/dl (70-99) Bedside Ionized Calcium (Rodolfo) 1.29 mmol/l (1.12-1.32) Laboratory results per my review. Medications Administered Medications (Trade) Dose Ordered Sig/Sidney Route Start Time Stop Time Status Last Admin Dose Admin Sodium Chloride 2,000 ml @ 999 mls/hr Q2H1M STAT IV 05/13/17 16:46 05/13/17 18:46 DC 05/13/17 17:16 999 MLS/HR Cefepime HCl 1000 mg/Dextrose 111 ml @ 200 mls/hr NOW STAT IV 05/13/17 18:36 05/13/17 19:09 DC 05/13/17 19:00 200 MLS/HR Levofloxacin (Levaquin / D5W) 750 mg NOW STAT IV 05/13/17 18:36 05/13/17 18:38 DC 05/13/17 19:00 750 MG ECG Indication: tachycardia Rate (beats per minute): 89 Rhythm: sinus rhythm Findings: other (Normal axis, diffuse j point elevation) ED Course ED COURSE: Vital signs were reviewed and showed that the patient was tachycardic and hypotensive. The patients medical record was reviewed The above diagnostic studies were performed and reviewed. ED treatments and interventions as stated above. 1634: The patient was evaluated in room A4. A complete history and physical examination was performed. 1646: Sodium Chloride 2000 ml @ 999 mls/hr IV 1821: I reevaluated and updated the patient. 1835: Upon reevaluation, the patient is stable. I discussed my findings with the patient and he understands and agrees with the treatment plan. Based on the patients age, coexisting illnesses, exam and lab findings the decision to treat as an inpatient was made. The patient remained stable while under my care. Discussed the patient's case with Dr. De Jesus - Hospitalist, [facility] [place]. The patient will be evaluated for further management. 1836: Levofloxacin 750mg IV, Cefepime HCl 1000mg/Dextrose 111 ml @ 200mls/hr Medical Decision Differential Diagnosis includes but is not limited to dehydration, stroke, anemia, hypoglycemia, hyponatremia, hypernatremia, urinary tract infection, pneumonia, bronchitis, sepsis, gastroenteritis, additional abdominal pathology, metabolic abnormalities and infections. Patient is a 32-year-old male who is referred in from the cancer center following having routine blood work. There he notes he was not feeling well. He was found to be extremely tachycardic. Presentation to the ER; he was hypotensive with systolic pressures in the 70s. Labs were obtained and show pancytopenia. Hemoglobin was slightly lower than baseline around mid nines. BMP along with LFTs, bilirubin and troponin was negative. UA negative. Chest x -ray shows a consolidation in left lower lobe. He does have a cough but notes this is not new. With his neutropenia, tachycardia and hypotensive which resolved following 2 L normal saline in combination with the consolidation elected to cover him with broad-spectrum antibiotics including Levaquin and cefepime. Discussed case with internal medicine for further evaluation. Medication Reconcilliation Current Medication List: was personally reviewed by me Blood Pressure Screening Patient's blood pressure: Low blood pressure Referred to hospitalist. Consults Time Called: 1832 Consulting Physician: Dr. De Jesus - [place] Hospitalist, [facility] [place] Returned Call: 1834 I reviewed the patient's case with Dr. De Jesus. The patient will evaluate the patient for further management. Impression Primary Impression: Pneumonia Additional Impressions: Pancytopenia Hypotension Scribe Attestation The scribe's documentation has been prepared under my direction and personally reviewed by me in its entirety. I confirm that the note above accurately reflects all work, treatment, procedures, and medical decision making performed by me. Departure Information Dispostion Being Evaluated By Hospitalist Referrals Dorian Franz M.D. (PCP) Patient Instructions My [facility] Problem Qualifiers Primary Impression: Pneumonia Pneumonia type: due to unspecified organism Laterality: left Lung location : lower lobe of lung Qualified Codes: J18.1 - Lobar pneumonia, unspecified organism Additional Impressions: Hypotension Hypotension type: unspecified hypotension type Qualified Codes: I95.9 - Hypotension, unspecified
[2017-05-13] MEDS: DEXAMETHASONE CONC SOLN 3.75 MG, NYSTATIN SUSP 30 ML, DiphenhydrAMINE HCL SYRUP 300 MG,... PO SCH ×5 (23:24)
[2017-05-13 23:42] VITALS: BP 94/58; PULSE 78; TEMP 36.7; O2SAT 100
[2017-05-14] VITALS (7 sets, daily range): BP systolic 90–99; BP diastolic 53–63; PULSE 85–107; TEMP 36.5–36.8; O2SAT 99–100
[2017-05-14] MEDS: DEXAMETHASONE CONC SOLN 3.75 MG, NYSTATIN SUSP 30 ML, DiphenhydrAMINE HCL SYRUP 300 MG,... PO SCH ×30 (05:09→23:35)
[2017-05-14] MEDS: CEFEPIME IV 2,000 MG in SYRINGE 7.5 ML IV SCH ×3 (05:58→22:06)
[2017-05-14] MEDS: METHADONE HCL 10 MG TAB PO SCH ×3 (05:58→22:05)
[2017-05-14 06:31] LABS: HEMATOCRIT 24.7 % (42-52); HEMOGLOBIN 8.4 g/dL (14.0-18.0); MEAN CELL VOLUME 88.8 fL (80-100); MEAN CORPUSCULAR HEMOGLOBIN 30.2 pg (25-34); MEAN PLATELET VOLUME 9.2 fL (7.4-10.4); PLATELET COUNT 32 K/uL (130-400); RED CELL DISTRIBUTION WIDTH CV 16.2 % (11.5-14.5); RED CELL DISTRIBUTION WIDTH SD 51.8 fL (36.4-46.3); WHITE BLOOD COUNT 0.06 K/uL (4.8-10.8)
[2017-05-14 06:34] LABS: CALCIUM 8.5 mg/dl (8.5-10.1); CREATININE 1.06 mg/dl (0.60-1.40); POTASSIUM 4.2 mmol/L (3.5-5.1)
--- NOTE | 2017-05-14 07:55 | Oncology Consultation ---
Oncology/Heme Consultation Date of Consultation: May 14, 2017. Attending Physician: Marjorie De Jesus DO Reason for Consultation: 32-year-old gentleman with a history of recurrent refractory high-grade non- Hodgkin's lymphoma History of Present Illness Mr. Reyes is a 32-year-old gentleman that is known to our clinic. 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 He was treated to remission with R CHOP but recurred shortly afterwards. His care going forward has been primarily in the [place] area. He is received a number of regimens. More recently he has been treated on now several occasions with R-EPOCH along with Venetoclax. He did have an updated PET scan according to his history very recently in [place] that showed general improvement. He states the bulk of his tumor is actually near his back. CT scan of the chest done during his hospitalization shows improvement when compared to prior scans. However he was admitted now with hypotension. He wonders whether he is just dehydrated. He has had that not had nausea or vomiting. He has not had any fever or shaking chills. He denies any shortness of breath. He denies significant new abdominal pain or change in bowel habits. Past Medical/Surgical History Medical Problems: (1) Acute kidney injury Status: Acute (2) Febrile neutropenia Status: Acute (3) Fever Status: Acute (4) Pancytopenia Status: Acute (5) Pancytopenia Status: Acute (6) Pancytopenia Status: Acute (7) Pneumonia Status: Acute Family History Cancer Heart disease Social History Smoking Status: Never Smoker Alcohol Use: none Drug Use: none Marital Status: Housing Status: lives with significant other Occupation Status: employed Allergies Coded Allergies: Erythromycin (Verified Adverse Reaction, Intermediate, GI SYMPTOMS, ) Prochlorperazine (Verified Adverse Reaction, Unknown, change in mental status, 05/13/17) Home Medications Scheduled Acyclovir (Zovirax), 800 MG PO BID Cefpodoxime Proxetil (Cefpodoxime Proxetil), 1 TAB PO BID Cetirizine Hcl (Cetirizine Hcl), 1 TAB PO DAILY Dexlansoprazole (Dexilant), 60 MG PO QAM Docusate Sodium (Docusate Sodium), 100 MG PO QAM Docusate Sodium (Docusate Sodium), 200 MG PO HS Dronabinol (Marinol), 5 MG PO TIDM Enteral Nutrition Formula (Boost Plus), 1 CAN PO TID Escitalopram Oxalate (Lexapro), 20 MG PO QAM Gabapentin (Gabapentin), 600 MG PO TID Levofloxacin (Levaquin), 500 MG PO DAILY Lorazepam (Ativan), 1 MG PO HS Methadone Hcl (Dolophine), 15 MG PO Q8 Phenol-Sodium Borate (Ulcerease), 15 ML PO Q6H Sennosides (Senna-Lax), 2 TABS PO AMHS Sulfa/Trimethoprim (Bactrim Ds 800MG/160MG), 1 TAB PO 3XWK Triamcinolone Acet (Triamcinolone Acetonide), 1 APPLN MT TID Venetoclax (Venclexta), 12 TABS PO DAILY@1500 [Magic Mouth Wash], 5 ML PO Q4H Scheduled PRN Bisacodyl (Bisacodyl), 2 TAB PO HS PRN for Constipation Dexlansoprazole (Dexilant), 30 MG PO HS PRN for gerd Oxycodone Immediate Rel Tab (Roxicodone Ir), 10-15 MG PO Q4 PRN for Pain Current Inpatient Medications Current Inpatient Medications Medications (Trade) Dose Ordered Sig/Sidney Route Start Time Stop Time Status Last Admin Dose Admin Acetaminophen (Tylenol Tab) 650 mg Q4H PRN PO 05/13/17 19:45 06/12/17 19:44 Magnesium Hydroxide (Milk Of Magnesia Susp) 30 ml Q6H PRN PO 05/13/17 19:45 06/12/17 19:44 Ondansetron HCl (Zofran Inj) 4 mg Q6H PRN IV 05/13/17 19:45 06/12/17 19:44 Acyclovir (Zovirax Tab) 800 mg BID PO 05/13/17 20:59 05/15/17 20:59 05/13/17 22:02 800 MG Bisacodyl (Dulcolax Tab) 10 mg HS PRN PO 05/13/17 19:45 06/12/17 19:44 Docusate Sodium (coLACE CAP) 100 mg QAM PO 05/14/17 08:00 06/13/17 08:59 Docusate Sodium (coLACE CAP) 200 mg HS PO 05/13/17 21:00 06/12/17 20:59 05/13/17 22:01 200 MG Dronabinol (Marinol Cap) 5 mg TIDM PO 05/14/17 08:00 06/13/17 07:59 Enteral Nutritional Formula (Boost Plus Vanilla) 1 can TID PO 05/13/17 20:59 06/12/17 20:59 05/13/17 20:59 1 CAN Escitalopram Oxalate (Lexapro Tab) 20 mg QAM PO 05/14/17 08:00 06/13/17 08:59 Gabapentin (Neurontin Tab) 600 mg TID PO 05/13/17 20:59 06/12/17 20:59 05/13/17 22:03 600 MG Lorazepam (Ativan Tab) 1 mg HS PO 05/13/17 21:00 06/12/17 20:59 05/13/17 21:59 1 MG Methadone HCl (Dolophine Tab) 15 mg Q8 PO 05/13/17 22:00 05/27/17 21:59 05/14/17 05:58 15 MG Oxycodone HCl (Roxicodone Immediate Rel Tab) 10 mg Q4 PRN PO 05/13/17 19:45 05/27/17 19:44 Senna (Senokot Tab) 17.2 mg AMHS PO 05/13/17 20:59 06/12/17 20:59 05/13/17 22:01 17.2 MG Triamcinolone Acetonide (Triamcinolone Dental Paste) 1 appln TID MT 05/13/17 20:59 06/12/17 20:59 Non-Formulary Medication (Cefpodoxime Proxetil ) 1 tab BID PO 05/13/17 20:59 06/12/17 20:59 Future Hold Cetirizine HCl (zyrTEC TAB) 10 mg DAILY PO 05/14/17 08:00 06/13/17 07:59 05/13/17 22:09 10 MG Miscellaneous Information (Order Awaiting Action) 1 ea QS N/A 05/14/17 08:00 06/13/17 07:59 Levofloxacin 750 mg/Prmx 150 ml @ 100 mls/hr Q24H IV 05/14/17 19:00 05/19/17 20:29 Sodium Chloride 1,000 ml @ 100 mls/hr Q10H IV 05/13/17 22:00 06/12/17 21:59 05/13/17 22:05 100 MLS/HR Cefepime HCl 2000 mg/Syringe 20 ml @ 5 mls/min Q8 IV 05/14/17 06:00 05/21/17 05:59 05/14/17 05:58 5 MLS/MIN Dexamethasone/ Nystatin/ Diphenhydramine HCl/Sucrose/ Microcrystalline Cellulose/Barcode Q4 PO 05/14/17 00:00 06/13/17 00:00 Venetoclax (Venclexta) 1,200 mg DAILY@1500 PO 05/14/17 15:00 06/13/17 14:59 Dexlansoprazole (Dexilant Dr) 30 mg HS PRN PO 05/13/17 22:00 06/12/17 21:59 Dexlansoprazole (Dexilant Dr) 60 mg QAM PO 05/14/17 08:00 06/13/17 07:59 Review of Systems Constitutional: Negative for night sweats, or fever Eyes: Negative for event change of vision ENT: Negative for epistaxis, nasal discharge, sore throat, or deafness Cardiovascular: Negative for chest pain, palpitations, dizziness, diaphoresis Respiratory: Negative for new shortness of breath,hemoptysis, or purulent cough Gastrointestinal: Negative for diarrhea, hematemesis, melena, nausea, vomiting , or dyspepsia Integumentary (skin): Negative for rash or jaundice discoloration Genitourinary: Negative for urinary frequency, hematuria, or dysuria Neurological: Negative for weakness, seizure activity, headache. he has felt lightheaded. Musculoskeletal: Negative for new joint or back pain Allergic/Immunologic: Negative for unusual rash or pruritis. Physical Exam Date Time Temp Pulse Resp B/P (MAP) Pulse Ox O2 Delivery O2 Flow Rate FiO2 05/14/17 07:03 36.6 89 16 94/58 (70) 100 05/14/17 04:29 36.6 97 16 93/53 (66) 99 Room Air 05/14/17 00:00 Room Air 05/13/17 23:42 36.7 78 20 94/58 (70) 100 Room Air 05/13/17 22:26 100 Room Air 05/13/17 21:17 36.5 106 20 102/77 (85) 100 Room Air 05/13/17 20:11 91 20 100/58 100 Room Air 05/13/17 19:51 117 18 104/72 98 Room Air 05/13/17 18:00 82 18 99/62 100 Room Air 05/13/17 17:28 100 Room Air 05/13/17 17:04 110 05/13/17 16:27 36.8 148 20 74/43 98 Room Air Constitutional: vitals are stable. Alopecic pleasant young man Eyes: Eyes are BEBO EOMI without conjuctival erythema or icterus. ENT: External examination was negative for masses. Neck: Negative for masses or palpable thyromegaly Respiratory: Lung sounds were generally clear bilaterally Cardiovascular: Heart was RRR without significant murmur, gallops or rubs Gastrointestinal: No palpable hepatic or splenomegaly. The abdomen was soft with normal bowel sounds. Lymphatic system: there was no palpable peripheral lymphadenopathy Musculoskeletal System: The musculoskeletal system seemed concordant with age. Skin: The skin was negative for jaundice. Neurologic exam: The exam was negative for any focal findings. Deep tendon reflexes were equal and symmetrical. Psychiatric exam: Was essentially negative with normal mood and effect. Extremities: negative for edema Laboratory Results Last 24 Hours Test 05/13/17 17:18 05/13/17 17:21 05/13/17 17:33 05/13/17 19:50 White Blood Count 0.06 K/uL Red Blood Count 3.29 M/uL Hemoglobin 9.9 g/dL Hematocrit 29.3 % Mean Corpuscular Volume 89.1 fL Mean Corpuscular Hemoglobin 30.1 pg Mean Corpuscular Hemoglobin Concent 33.8 g/dl Platelet Count 48 K/uL Mean Platelet Volume 9.1 fL RDW Standard Deviation 52.2 fL RDW Coefficient of Variation 16.2 % Prothrombin Time 10.0 SECONDS Prothromb Time International Ratio 1.0 Sodium Level 136 mmol/L Potassium Level 4.4 mmol/L Chloride Level 104 mmol/L Carbon Dioxide Level 26 mmol/L Anion Gap 6.0 mmol/L 17.0 mmol/L Blood Urea Nitrogen 40 mg/dl Creatinine 1.27 mg/dl Est Creatinine Clear Calc Drug Dose 92.6 ml/min Estimated GFR () 84.9 Estimated GFR (Non- 73.2 BUN/Creatinine Ratio 31.5 Random Glucose 97 mg/dl Bedside Lactic Acid Venous 1.09 mmol/L Calcium Level 9.0 mg/dl Magnesium Level 1.6 mg/dl Total Bilirubin 0.6 mg/dl Direct Bilirubin 0.2 mg/dl Aspartate Amino Transf (AST/SGOT) 5 U/L Alanine Aminotransferase (ALT/SGPT) 20 U/L Alkaline Phosphatase 92 U/L Total Creatine Kinase 13 U/L Creatine Kinase MB 0.6 ng/ml Creatine Kinase MB Ratio 4.6 Troponin I < 0.015 ng/ml Total Protein 6.1 gm/dl Albumin 3.3 gm/dl Influenza Type A Antigen Neg for Influ A Influenza Type B Antigen Neg for Influ B Bedside Hemoglobin 8.8 g/dl Bedside Hematocrit 26 % Bedside Sodium 138 mEq/L Bedside Potassium 4.5 mEq/L Bedside Chloride 101 mEq/L Bedside Total CO2 25 mEq/l Bedside Blood Urea Nitrogen 36 mg/dl Bedside Creatinine 1.3 mg/dl Bedside Glucose (other) 99 mg/dl Bedside Ionized Calcium (Rodolfo) 1.29 mmol/l Urine Color YELLOW Urine Appearance CLEAR Urine pH 5.0 Urine Specific [place] 1.018 Urine Protein NEG Urine Glucose (UA) NEG Urine Ketones NEG Urine Occult Blood NEG Urine Nitrite NEG Urine Bilirubin NEG Urine Urobilinogen NEG Urine Leukocyte Esterase NEG Urine WBC (Auto) 1-5 /hpf Urine RBC (Auto) 0-4 /hpf Urine Hyaline Casts (Auto) 1-5 /lpf Urine Epithelial Cells (Auto) 5-10 /lpf Urine Bacteria (Auto) NEG Test 05/14/17 05:14 White Blood Count 0.06 K/uL Red Blood Count 2.78 M/uL Hemoglobin 8.4 g/dL Hematocrit 24.7 % Mean Corpuscular Volume 88.8 fL Mean Corpuscular Hemoglobin 30.2 pg Mean Corpuscular Hemoglobin Concent 34.0 g/dl RDW Standard Deviation 51.8 fL RDW Coefficient of Variation 16.2 % Platelet Count 32 K/uL Mean Platelet Volume 9.2 fL Sodium Level 138 mmol/L Potassium Level 4.2 mmol/L Chloride Level 106 mmol/L Carbon Dioxide Level 26 mmol/L Anion Gap 6.0 mmol/L Blood Urea Nitrogen 33 mg/dl Creatinine 1.06 mg/dl Est Creatinine Clear Calc Drug Dose 110.9 ml/min Estimated GFR () 105.6 Estimated GFR (Non- 91.1 BUN/Creatinine Ratio 31.6 Random Glucose 107 mg/dl Calcium Level 8.5 mg/dl Assessment & Plan Recurrent refractory large cell non-Hodgkin's lymphoma. It does appear that he has had a response to R-EPOCH and Venetoclax. He now complains of lightheadedness and is noted to be mildly hypotensive. He denies headache. Is been no seizure activity. 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 No neurologic deficit today. He has seen quite a bit of anthracycline and I would update an echocardiogram at this juncture. Otherwise hopefully hydration will help correct his blood pressure. I should note that he did state that he did receive Neulasta after his last therapy in [place]. I would strive to keep his hemoglobin above 9 g/dL. In addition the platelet should stay above 10-20,000 with transfusion as needed. We will follow along with you while he is here. NB: All transfused blood products should be irradiated.
[2017-05-14] MEDS ORDERED: NON-FORMULARY MEDICATION (Dexlansoprazole (Dexilant) 60 MG) PO SCH (08:00)
[2017-05-14] MEDS: SODIUM CHLORIDE 0.9% 1000ML 1,000 ML IV SCH ×2 (08:03→17:33)
[2017-05-14] MEDS: ESCITALOPRAM OXALATE 20 MG TAB PO SCH (08:04)
[2017-05-14] MEDS: DEXLANSOPRAZOLE 60 MG CAPDR PO SCH (08:05)
[2017-05-14] MEDS: DOCUSATE SODIUM 100 MG CAP PO SCH ×2 (08:05→20:32)
[2017-05-14] MEDS: TRIAMCINOLONE ACET 0.1% ORABASE 5 GM TUBE MT SCH ×3 (08:06→20:00)
[2017-05-14] MEDS: GABAPENTIN 600 MG TAB PO SCH ×3 (08:07→20:31)
[2017-05-14] MEDS: SENNA 8.6 MG TAB PO SCH ×2 (08:07→20:31)
[2017-05-14] MEDS: ACYCLOVIR 400 MG TAB PO SCH ×2 (08:07→20:31)
[2017-05-14] MEDS: BOOST PLUS VANILLA PO SCH ×3 (09:55→20:32)
[2017-05-14] MEDS: DRONABINOL 2.5 MG CAP PO SCH ×3 (09:55→17:33)
[2017-05-14] MEDS ORDERED: MAGNESIUM SULFATE 1GM / D5W 1 GM in PREMIXED IN D5W 100 ML IV ONE (11:45)
[2017-05-14] MEDS: CETIRIZINE HCL 10 MG TAB PO SCH (12:11)
[2017-05-14 13:09] LABS: INFLUENZA A PCR Neg for Influ A (NEG); INFLUENZA B PCR Neg for Influ B (NEG)
[2017-05-14] MEDS: VENETOCLAX 100 MG TAB PO SCH (14:44)
[2017-05-14] MEDS ORDERED: VENETOCLAX PO SCH (15:00)
[2017-05-14] MEDS ORDERED: LEVOFLOXACIN / D5W 750 MG in PREMIXED IN D5W 150 ML IV SCH (19:00)
[2017-05-14] MEDS: LORAZEPAM 1 MG TAB PO SCH (20:37)
--- NOTE | 2017-05-14 23:12 | Progress Note ---
Subjective Date of Service: May 14, 2017. Subjective Pt evaluation today including: conversation w/ patient, physical exam, chart review, lab review, review of studies, review of inpatient medication list Pain: none PO Intake: fair at best Voiding: no voiding problems denies fevers, chills, myalgias, arthralgias denies sore throat - minimal soreness on tongue denies ear pain, neck pain, headache denies chest pain, cough, dyspnea no abd pain, nausea, emesis, diarrhea no dysuria no rashes port not tender admits to probably less than adequate nutrition/liquids last week after getting out of [facility] (where he received R-EPOCH) last week normal BP for him, based on records, 110 systolic despite low BP today making adequate urine Problem List Medical Problems: (1) Acute kidney injury Status: Acute (2) Febrile neutropenia Status: Acute (3) Fever Status: Acute (4) Pancytopenia Status: Acute (5) Pancytopenia Status: Acute (6) Pancytopenia Status: Acute (7) Pneumonia Status: Acute Objective Vital Signs Date Time Temp Pulse Resp B/P (MAP) Pulse Ox O2 Delivery O2 Flow Rate FiO2 05/14/17 19:39 36.7 100 20 90/57 (68) 100 Room Air 05/14/17 15:47 Room Air 05/14/17 14:36 36.5 107 16 94/63 (73) 100 05/14/17 11:45 36.6 86 16 96/60 (72) 100 05/14/17 08:30 100 Room Air 05/14/17 07:03 36.6 89 16 94/58 (70) 100 05/14/17 04:29 36.6 97 16 93/53 (66) 99 Room Air 05/14/17 00:00 Room Air 05/13/17 23:42 36.7 78 20 94/58 (70) 100 Room Air Physical Exam General Appearance: no apparent distress, + pertinent finding (looks tired, dehydration and mildly ill but nontoxic) ENT: pharynx normal, + pertinent finding (no obvious mucositis, no thrush or other lesions) Neck: supple, no adenopathy, thyroid normal, no JVD Respiratory/Chest: lungs clear, no respiratory distress, no accessory muscle use Cardiovascular: regular rate, rhythm, no gallop, no murmur Abdomen: normal bowel sounds, soft, no organomegaly, + tenderness (mild, suprapubic region) Extremities: no pedal edema, + pertinent finding (no synovitis of any joint) Neurologic/Psychiatric: no motor/sensory deficits, alert, oriented x 3 Skin: no rash, + pertinent finding (port in chest - site clean, nontender ) Laboratory Results Last 24 Hours Test 05/14/17 05:14 05/14/17 10:23 05/14/17 12:15 White Blood Count 0.06 K/uL Red Blood Count 2.78 M/uL Hemoglobin 8.4 g/dL Hematocrit 24.7 % Mean Corpuscular Volume 88.8 fL Mean Corpuscular Hemoglobin 30.2 pg Mean Corpuscular Hemoglobin Concent 34.0 g/dl RDW Standard Deviation 51.8 fL RDW Coefficient of Variation 16.2 % Platelet Count 32 K/uL Mean Platelet Volume 9.2 fL Sodium Level 138 mmol/L Potassium Level 4.2 mmol/L Chloride Level 106 mmol/L Carbon Dioxide Level 26 mmol/L Anion Gap 6.0 mmol/L Blood Urea Nitrogen 33 mg/dl Creatinine 1.06 mg/dl Est Creatinine Clear Calc Drug Dose 110.9 ml/min Estimated GFR () 105.6 Estimated GFR (Non- 91.1 BUN/Creatinine Ratio 31.6 Random Glucose 107 mg/dl Calcium Level 8.5 mg/dl Magnesium Level 1.7 mg/dl Random Cortisol 6.71 mcg/dl Influenza Type A (RT-PCR) Neg for Influ A Influenza Type B (RT-PCR) Neg for Influ B Assessment and Plan 32yo male - 1. hypotension, tachycardia, SIRS - concern for sepsis in light of severe neutropenia/recent chemo/lymphoma. No fever, however, and blood cx's thus far negative. With that said continue broad-spectrum IV abx including cefepime, levaquin, acyclovir. Hypotension is improved, tachycardia improved. Although rapid flu was negative will check PCR flu to be complete. Patient reports having a NORMAL ECHO WITH PRESERVED EF at [facility] last week. NO signs of cardiogenic shock. Cortisol level is 6 today, but likely received steroids last week with his chemo , and value will be suppressed from those steroids. 2. recent citrobacter septicemia - he is nearing completion of his levaquin course. 3. severe pancytopenia with severe neutropenia - 2nd to recent chemotherapy. CBC in am. Appreciate Dr. Craig's consultation & recommendations. Did receive neulasta at [facility] last week. Neutropenic precautions. 4. hypomagnesemia - replace, repeat level AM. 5. mild acute kidney injury - 2nd to volume depletion; continue IVF, repeat BMP in am. Making excellent urine. 6. large B-Cell non-hodgkin's lymphoma - management per heme/onc. 7. DVT proph - SCDs; chemical means contraindicated due to significant thrombocytopenia. 8. mild mouth pain - probably mild mucositis - decadron solution as already ordered. 9. chronic pain syndrome - continue home regimen of meds. if BPs normalize, cultures stay negative, and creatinine back to baseline can consider d/c tomorrow or the next Continued [facility] stay due to: multiple IV medications needed, other (hypotension) Discharge planning: home
[2017-05-15 03:30] VITALS: BP 97/61; PULSE 94; TEMP 36.6; O2SAT 100
[2017-05-15] MEDS: DEXAMETHASONE CONC SOLN 3.75 MG, NYSTATIN SUSP 30 ML, DiphenhydrAMINE HCL SYRUP 300 MG,... PO SCH ×15 (04:00→12:00)
[2017-05-15] MEDS: SODIUM CHLORIDE 0.9% 1000ML 1,000 ML IV SCH (04:05)
[2017-05-15] MEDS: CEFEPIME IV 2,000 MG in SYRINGE 7.5 ML IV SCH ×2 (06:12→14:32)
[2017-05-15] MEDS: METHADONE HCL 10 MG TAB PO SCH ×2 (06:12→14:41)
[2017-05-15 06:52] LABS: CREATININE 0.95 mg/dl (0.60-1.40); POTASSIUM 4.3 mmol/L (3.5-5.1)
[2017-05-15 06:55] LABS: HEMATOCRIT 23.8 % (42-52); HEMOGLOBIN 8.1 g/dL (14.0-18.0); MEAN CELL VOLUME 88.5 fL (80-100); MEAN CORPUSCULAR HEMOGLOBIN 30.1 pg (25-34); MEAN PLATELET VOLUME 9.3 fL (7.4-10.4); PLATELET COUNT 24 K/uL (130-400); RED CELL DISTRIBUTION WIDTH CV 15.9 % (11.5-14.5); RED CELL DISTRIBUTION WIDTH SD 50.9 fL (36.4-46.3); WHITE BLOOD COUNT 0.05 K/uL (4.8-10.8)
[2017-05-15 07:59] VITALS: BP_SYST 86; BP_SYST 97; BP_DIAS 47; BP_DIAS 59; PULSE 85; TEMP 36.8; O2SAT 98
[2017-05-15] MEDS: TRIAMCINOLONE ACET 0.1% ORABASE 5 GM TUBE MT SCH ×2 (08:30→14:34)
[2017-05-15] MEDS: BOOST PLUS VANILLA PO SCH ×2 (08:34→14:33)
[2017-05-15] MEDS: DEXLANSOPRAZOLE 60 MG CAPDR PO SCH (08:35)
[2017-05-15] MEDS: SENNA 8.6 MG TAB PO SCH (08:35)
[2017-05-15] MEDS: ESCITALOPRAM OXALATE 20 MG TAB PO SCH (08:35)
[2017-05-15] MEDS: DOCUSATE SODIUM 100 MG CAP PO SCH (08:35)
[2017-05-15] MEDS: CETIRIZINE HCL 10 MG TAB PO SCH (08:36)
[2017-05-15] MEDS: ACYCLOVIR 400 MG TAB PO SCH (08:36)
[2017-05-15] MEDS: DRONABINOL 2.5 MG CAP PO SCH ×2 (09:10→12:00)
[2017-05-15 09:30] VITALS: O2SAT 98
--- NOTE | 2017-05-15 09:41 | Hematology/Oncology Prog Note ---
Hematology/Onc Progress Note Date of Service May 15, 2017. Diagnoses Recurrent refractory non-Hodgkin's lymphoma Hypotension Pancytopenia secondary to therapy Medications Medications Administered Medications (Trade) Dose Ordered Sig/Sidney Route Start Time Stop Time Status Last Admin Dose Admin Sodium Chloride 2,000 ml @ 999 mls/hr Q2H1M STAT IV 05/13/17 16:46 05/13/17 18:46 DC 05/13/17 17:16 999 MLS/HR Cefepime HCl 1000 mg/Dextrose 111 ml @ 200 mls/hr NOW STAT IV 05/13/17 18:36 05/13/17 19:09 DC 05/13/17 19:00 200 MLS/HR Levofloxacin (Levaquin / D5W) 750 mg NOW STAT IV 05/13/17 18:36 05/13/17 18:38 DC 05/13/17 19:00 750 MG Acyclovir (Zovirax Tab) 800 mg BID PO 05/13/17 20:59 05/15/17 20:59 05/15/17 08:36 800 MG Docusate Sodium (coLACE CAP) 100 mg QAM PO 05/14/17 08:00 06/13/17 08:59 05/15/17 08:35 100 MG Docusate Sodium (coLACE CAP) 200 mg HS PO 05/13/17 21:00 06/12/17 20:59 05/14/17 20:32 200 MG Dronabinol (Marinol Cap) 5 mg TIDM PO 05/14/17 08:00 06/13/17 07:59 05/15/17 09:10 5 MG Enteral Nutritional Formula (Boost Plus Vanilla) 1 can TID PO 05/13/17 20:59 05/14/17 15:48 DC 05/14/17 14:41 1 CAN Escitalopram Oxalate (Lexapro Tab) 20 mg QAM PO 05/14/17 08:00 06/13/17 08:59 05/15/17 08:35 20 MG Gabapentin (Neurontin Tab) 600 mg TID PO 05/13/17 20:59 06/12/17 20:59 05/14/17 20:31 600 MG Lorazepam (Ativan Tab) 1 mg HS PO 05/13/17 21:00 06/12/17 20:59 05/14/17 20:37 1 MG Methadone HCl (Dolophine Tab) 15 mg Q8 PO 05/13/17 22:00 05/27/17 21:59 05/15/17 06:12 15 MG Senna (Senokot Tab) 17.2 mg AMHS PO 05/13/17 20:59 06/12/17 20:59 05/15/17 08:35 17.2 MG Triamcinolone Acetonide (Triamcinolone Dental Paste) 1 appln TID MT 05/13/17 20:59 06/12/17 20:59 05/14/17 08:06 1 APPLN Cetirizine HCl (zyrTEC TAB) 10 mg DAILY PO 05/14/17 08:00 06/13/17 07:59 05/15/17 08:36 10 MG Levofloxacin 750 mg/Prmx 150 ml @ 100 mls/hr Q24H IV 05/14/17 19:00 05/19/17 20:29 05/14/17 20:29 100 MLS/HR Escitalopram Oxalate (Lexapro Tab) 20 mg ONE STAT PO 05/13/17 21:22 05/13/17 21:23 DC 05/13/17 22:03 20 MG Sodium Chloride 1,000 ml @ 100 mls/hr Q10H IV 05/13/17 22:00 06/12/17 21:59 05/15/17 04:05 100 MLS/HR Cefepime HCl 2000 mg/Syringe 20 ml @ 5 mls/min Q8 IV 05/14/17 06:00 05/21/17 05:59 05/15/17 06:12 5 MLS/MIN Venetoclax (Venclexta) 1,200 mg DAILY@1500 PO 05/14/17 15:00 06/13/17 14:59 05/14/17 14:44 1,200 MG Venetoclax (Venclexta) 1,200 mg NOW STAT PO 05/13/17 21:48 05/13/17 21:49 DC 05/13/17 22:04 1,200 MG Dexlansoprazole (Dexilant Dr) 60 mg QAM PO 05/14/17 08:00 06/13/17 07:59 05/15/17 08:35 60 MG Magnesium Sulfate 1 gm/Prmx 100 ml @ 100 mls/hr TODAY@1145 ONCE IV 05/14/17 11:45 05/14/17 12:44 DC 05/14/17 12:11 100 MLS/HR Enteral Nutritional Formula (Boost Plus Vanilla) 1 can TID PO 05/14/17 20:00 06/13/17 19:59 05/15/17 08:34 1 CAN Subjective Feels somewhat better however BP's supine remain low. He does review that recent echo showed a good result. Review of Systems: Constitutional: Negative for night sweats, or fever Eyes: Negative for event change of vision ENT: Negative for epistaxis, nasal discharge, sore throat, or deafness Cardiovascular: Negative for chest pain, palpitations, dizziness, diaphoresis Respiratory: Negative for new shortness of breath,hemoptysis, or purulent cough Gastrointestinal: Negative for diarrhea, hematemesis, melena, nausea, vomiting , or dyspepsia Integumentary (skin): Negative for rash or jaundice discoloration Neurological: Negative for weakness, seizure activity, headache, or dizziness Lymphatic/Hematologic: Negative for petechiae, bleeding or new adenopathy Musculoskeletal: Negative for new joint or back pain Allergic/Immunologic: Negative for unusual rash or pruritis. Vital Signs Vital Signs Past 12 Hours Date Time Temp Pulse Resp B/P (MAP) Pulse Ox O2 Delivery O2 Flow Rate FiO2 05/15/17 07:59 36.8 85 18 86/47 (60) 98 Room Air 97/59 (72) 05/15/17 03:30 36.6 94 18 97/61 (73) 100 Room Air 05/15/17 00:00 Room Air 05/14/17 23:31 36.8 85 20 99/62 (74) 100 Room Air Physical Exam Constitutional: Negative for weight loss, night sweats, or fever. Alopecic male Eyes: Negative for event change of vision ENT: Negative for epistaxis, nasal discharge, sore throat, or deafness Cardiovascular: Negative for chest pain, palpitations, dizziness, diaphoresis Respiratory: Negative for new shortness of breath,hemoptysis, or purulent cough Gastrointestinal: Negative for diarrhea, hematemesis, melena, nausea, vomiting , or dyspepsia Integumentary (skin): Negative for rash or jaundice discoloration Genitourinary: Negative for urinary frequency, hematuria, or dysuria Neurological: Negative for weakness, seizure activity, headache, or dizziness Lymphatic/Hematologic: Negative for petechiae, bleeding or new adenopathy Musculoskeletal: Negative for new joint or back pain Allergic/Immunologic: Negative for unusual rash or pruritis. Laboratory Last 24 Hours Test 05/14/17 10:23 05/14/17 12:15 05/15/17 05:20 Magnesium Level 1.7 mg/dl 2.0 mg/dl Random Cortisol 6.71 mcg/dl Influenza Type A (RT-PCR) Neg for Influ A Influenza Type B (RT-PCR) Neg for Influ B White Blood Count 0.05 K/uL Red Blood Count 2.69 M/uL Hemoglobin 8.1 g/dL Hematocrit 23.8 % Mean Corpuscular Volume 88.5 fL Mean Corpuscular Hemoglobin 30.1 pg Mean Corpuscular Hemoglobin Concent 34.0 g/dl Platelet Count 24 K/uL Mean Platelet Volume 9.3 fL RDW Standard Deviation 50.9 fL RDW Coefficient of Variation 15.9 % Platelet Estimate SIGNIFIC DECREASED Sodium Level 138 mmol/L Potassium Level 4.3 mmol/L Chloride Level 104 mmol/L Carbon Dioxide Level 27 mmol/L Anion Gap 7.0 mmol/L Blood Urea Nitrogen 26 mg/dl Creatinine 0.95 mg/dl Est Creatinine Clear Calc Drug Dose 123.8 ml/min Estimated GFR () 120.6 Estimated GFR (Non- 104.0 BUN/Creatinine Ratio 27.8 Random Glucose 101 mg/dl Calcium Level 9.0 mg/dl Assessment & Plan Hypotension continues. If not done let us please start to do orthostatic supine and standing blood pressures every 8 hours. It is possible that the vincristine that he has been getting an EP [facility] could be responsible for some of his hypotension. Platelet count is 24,000 white count remains low hemoglobin 8.1 today. If in fact he remains orthostatic then he may have to begin oral vasopressor versus a mineralocorticoid (florinef).
[2017-05-15] MEDS: GABAPENTIN 600 MG TAB PO SCH ×2 (10:00→14:33)
[2017-05-15 12:01] VITALS: BP 93/60; PULSE 105; TEMP 36.6; O2SAT 97
[2017-05-15] MEDS: VENETOCLAX 100 MG TAB PO SCH (14:34)
[2017-05-15] MEDS ORDERED: CEFP200T14 PO ×2 (14:57→15:30)
--- NOTE | 2017-05-15 14:58 | Discharge Instructions ---
Discharge Instructions Date of Service May 15, 2017. Admission Reason for Admission: Hypotension Discharge Discharge Diagnosis / Problem: neutropenic fever Discharge Goals Goal(s): Diagnostic testing, Therapeutic intervention Activity Recommendations Activity Limitations: as noted below Lifting Limitations: gradually increase as tolerated . Current Hospital Diet Patient's current hospital diet: Regular Diet Discharge Diet Recommended Diet: Regular Diet Pending Studies Studies pending at discharge: no Medical Emergencies . Who to Call and When: Medical Emergencies: If at any time you feel your situation is an emergency, please call 911 immediately. . Non-Emergent Contact Non-Emergency issues call your: Primary Care Provider Call Non-Emergent contact if: temperature is above 101, your pain is unusual for you . . "Provider Documentation" section prepared by Shan Askew. . VTE Core Measure Inpt VTE Proph given/why not?: Contraindicated (low platelets)
[2017-05-15 15:31] VITALS: BP 93/60; PULSE 92; TEMP 36.4; O2SAT 98
--- NOTE | 2017-05-15 18:49 | Discharge Summary ---
Discharge Summary Date of Service May 15, 2017. Discharge Summary Admission Date: May 13, 2017 at 19:40 Discharge Date: May 15, 2017 Discharge Disposition: Home Principal Diagnosis: neutropenic fever concern for SIRS Immunizations: Have You Had Influenza Vaccine: No History of Tetanus Vaccine?: Unknown History of Pneumococcal: Unknown History of Hepatitis B Vaccine: Unknown Medication Reconciliation Changed Medications: Cefpodoxime Proxetil (Cefpodoxime Proxetil) 200 Mg Tab 1 TAB PO BID, #60 TAB (Medication details modified) take only as directed Continued Medications: Acyclovir (Zovirax) 800 Mg Tab 800 MG PO BID Bisacodyl (Bisacodyl) 5 Mg Tab 2 TAB PO HS PRN for Constipation Cetirizine Hcl (Cetirizine Hcl) 10 Mg Chw 1 TAB PO DAILY Dexlansoprazole (Dexilant) 60 Mg Cap 60 MG PO QAM Dexlansoprazole (Dexilant) 30 Mg Cap 30 MG PO HS PRN for gerd Docusate Sodium (Docusate Sodium) 100 Mg Cap 100 MG PO QAM Docusate Sodium (Docusate Sodium) 100 Mg Cap 200 MG PO HS Dronabinol (Marinol) 2.5 Mg Cap 5 MG PO TIDM Enteral Nutrition Formula (Boost Plus) 1 Can Liqd 1 CAN PO TID Escitalopram Oxalate (Lexapro) 20 Mg Tab 20 MG PO QAM Gabapentin (Gabapentin) 600 Mg Tab 600 MG PO TID Lorazepam (Ativan) 1 Mg Tab 1 MG PO HS Methadone Hcl (Dolophine) 10 Mg Tab 15 MG PO Q8 Oxycodone Immediate Rel Tab (Roxicodone Ir) 5 Mg Tab 10-15 MG PO Q4 PRN for Pain, TAB Phenol-Sodium Borate (Ulcerease) 1 Viky Viky 15 ML PO Q6H SWISH AND SPIT Sennosides (Senna-Lax) 8.6 Mg Tab 2 TABS PO AMHS Sulfa/Trimethoprim (Bactrim Ds 800MG/160MG) Tab 1 TAB PO 3XWK, #6 TAB MON,WED,FRI Triamcinolone Acet (Triamcinolone Acetonide) 15 Appln/5 Gm Pste 1 APPLN MT TID for 7 Days Venetoclax (Venclexta) 100 Mg Tab 12 TABS PO DAILY@1500 [Magic Mouth Wash] () 5 ML PO Q4H SWISH AND SPIT Discontinued Medications: Levofloxacin (Levaquin) 500 Mg Tab 500 MG PO DAILY for 7 Days, TAB Discharge Exam Review of Systems: Constitutional: No fever, No chills Abdomen: No pain, No nausea Musculoskeletal: + joint pain, No muscle pain, No swelling Physical Exam: General Appearance: WD/WN, + mild distress Eyes: normal inspection, sclerae normal Neurologic/Psychiatric: alert, oriented x 3 Skin: normal color, warm/dry, no rash Hospital Course 32yo male -undergoing treatment for Lymphoma presented with neutropeinc fever and concerns for SIRS, cultures negative and no focus of infection seen, pts feels comfortable being at home as has been there previously while neutropenic, feels improved after hydration and blood pressure slightly better, discussed increased fluid and to liberalize salt intake. Dr Craig recommended florinef , pt did not want another pill but only wants to try salt intake hypotension, tachycardia, SIRS - sepsis is ruled out. Hypotension is improved, tachycardia improved. Although rapid flu was negative will check PCR flu to be complete. Patient reports having a NORMAL ECHO WITH PRESERVED EF at [facility] last week. NO signs of cardiogenic shock. Cortisol level is 6 but did get steroids last week with his chemo, and value will be suppressed from those steroids. Recent citrobacter septicemia - he is nearing completion of his levaquin course. pancytopenia with neutropenia - 2nd to recent chemotherapy. Appreciate Dr. Craig's consultation & recommendations did recommend florinef but pt did not want to have Rx Did receive neulasta at [facility] last week. Neutropenic precautions. hypomagnesemia - rreplete acute kidney injury - 2nd to volume depletion resolved with ivf large B-Cell non-hodgkin's lymphoma - management per heme/onc. DVT proph - SCDs; chemical means contraindicated due to significant thrombocytopenia. mild mouth pain -improved pt has magic mouthwash at home Pt has some right great toe pain, does not look actively infected but has some mild "rolling of great toe nail" will see access database developer and keep eye on it while home, is on levaquin and 3 x's a week bactrim at this point for typical prophylaxis chronic pain syndrome - continue home regimen of meds. Total Time Spent: Greater than 30 minutes This includes examination of the patient, discharge planning, medication reconciliation, and communication with other providers. Discharge Instructions Please refer to the electronic Patient Visit Report (Discharge Instructions) for additional information.
== END 2017-05-15 16:45 | disposition home or self-care (01) | DRG 808 ==
LOC: C.EDB 15:57 → C.4E 19:40 → EDBEDREQ 19:52 → ENRESERV 19:55
PROVIDERS: ADMIT Family Medicine; ATTEND Internal Medicine
DX: D61.810 Antineoplastic chemotherapy induced pancytopenia (principal); R65.11 Systemic inflammatory response syndrome (SIRS) of non-infectious origin with acute organ dysfunction; C85.10 Unspecified B-cell lymphoma, unspecified site; N17.9 Acute kidney failure, unspecified; T45.1X5A Adverse effect of antineoplastic and immunosuppressive drugs, initial encounter; Z88.2 Allergy status to sulfonamides; I95.89 Other hypotension; G89.4 Chronic pain syndrome; K21.9 Gastro-esophageal reflux disease without esophagitis; E83.42 Hypomagnesemia; Y92.019 Unspecified place in single-family (private) house as the place of occurrence of the external cause

== ENCOUNTER → 2017-05-13 | Outpatient (CLI) | payer OTHER ==
[~2017-05-13] MED LIST changes: -ALL300 PO; +CEFP200T14 PO; +Enteral Nutrition Formula PO; -GABA800T PO; +LEVO1TAB33 PO; +MGNO400 PO; +NRN600 PO; +NUTR-25 PO; -POTA1TAB97 PO; +[UNRECOGNIZED DRUG - OTHER] MT
[2017-05-13 16:06] LABS: ALBUMIN 3.6 gm/dl (3.4-5.0); ALT/SGPT 23 U/L (12-78); BLOOD UREA NITROGEN 41 mg/dl (7-18); CALCIUM 9.6 mg/dl (8.5-10.1); CARBON DIOXIDE 27 mmol/L (21-32); CREATININE 1.36 mg/dl (0.60-1.40); GLUCOSE 121 mg/dl (70-99); POTASSIUM 4.4 mmol/L (3.5-5.1); SODIUM 140 mmol/L (136-145)
[2017-05-13 16:09] LABS: ALKALINE PHOSPHATASE 101 U/L (45-117); AST/SGOT 10 U/L (15-37); TOTAL PROTEIN 6.8 gm/dl (6.4-8.2)
[2017-05-13 16:16] LABS: HEMATOCRIT 33.1 % (42-52); HEMOGLOBIN 11.4 g/dL (14.0-18.0); MEAN CELL VOLUME 89.2 fL (80-100); MEAN CORPUSCULAR HEMOGLOBIN 30.7 pg (25-34); MEAN CORPUSCULAR HGB CONC 34.4 g/dl (32-36)
[2017-05-13 16:17] LABS: MEAN PLATELET VOLUME 9.1 fL (7.4-10.4); PLATELET COUNT 54 K/uL (130-400); RED CELL DISTRIBUTION WIDTH CV 16.4 % (11.5-14.5); RED CELL DISTRIBUTION WIDTH SD 52.3 fL (36.4-46.3)
[2017-05-13 16:43] LABS: WHITE BLOOD COUNT 0.08 K/uL (4.8-10.8)
== END | disposition home or self-care (01) ==
LOC: C.LAB 15:35
PROVIDERS: ATTEND Internal Medicine Hematology & Oncology
DX: C83.30 Diffuse large B-cell lymphoma, unspecified site (principal)

== ENCOUNTER 2017-05-18 00:48 | Inpatient (IN) | payer OTHER ==
[2017-05-18] VITALS (11 sets, daily range): BP systolic 84–138; BP diastolic 40–73; PULSE 76–100; TEMP 36.5–37.3; O2SAT 94–100; BMI 26.1
[~2017-05-18] VITALS: Ht 185.4 cm; Wt 92.6 kg
[~2017-05-18 00:48] MED LIST changes: -Enteral Nutrition Formula PO; -MGNO400 PO; +NUTR-25 PO
[2017-05-18] MEDS ORDERED: SODIUM CHLORIDE 0.9% 1000ML 1,000 ML IV ONE (01:07)
--- NOTE | 2017-05-18 01:08 | EMERGENCY ROOM VISIT NOTE ---
History Report prepared by Alie: Shan Berumen Under the Supervision of: Dr. Gary George M.D. First contact with patient: 01:00 Chief Complaint: FEVER Stated Complaint: NEUTROPENIC FEVER,COUGH,RT TOE PAIN History of Present Illness The patient is a 32 year old male who presents to the Emergency Room with complaints of constant neutropenic fever that began recently. Patient states his last recorded fever was 101.6. Patient has associated symptoms of a cough for the past 6 weeks that has worsened the past 2 days. Pertinent medical history includes diffuse large B cell lymphoma. He states his last dose of chemotherapy was 10 days ago. Patient states his oncologist is Dr. Sosa. Patient adds that he has an ingrown toe nail. Source of History: patient Onset: Recent Timing: constant Modifying Factors (Relieving): other (None) Associated Symptoms: + cough Review of Systems See HPI for pertinent positives & negatives. A total of 10 systems reviewed and were otherwise negative. Past Medical & Surgical Medical Problems: (1) Anemia (2) GERD (gastroesophageal reflux disease) (3) Hypotension (4) Lymphoma (5) Neutropenic fever (6) Sore throat Surgical Problems: (1) History of liver biopsy Family History Cancer Heart disease Social History Smoking Status: Never Smoker Drug Use: none Marital Status: Housing Status: lives with significant other Occupation Status: employed Current/Historical Medications Scheduled Acyclovir (Zovirax), 800 MG PO BID Cefpodoxime Proxetil (Cefpodoxime Proxetil), 1 TAB PO BID Cetirizine Hcl (Cetirizine Hcl), 1 TAB PO DAILY Dexlansoprazole (Dexilant), 60 MG PO QAM Docusate Sodium (Docusate Sodium), 100 MG PO QAM Docusate Sodium (Docusate Sodium), 200 MG PO HS Dronabinol (Marinol), 5 MG PO TIDM Enteral Nutrition Formula (Boost Plus), 1 CAN PO TID Escitalopram Oxalate (Lexapro), 20 MG PO QAM Gabapentin (Gabapentin), 600 MG PO TID Lorazepam (Ativan), 1 MG PO HS Methadone Hcl (Dolophine), 15 MG PO Q8 Phenol-Sodium Borate (Ulcerease), 15 ML PO Q6H Sennosides (Senna-Lax), 2 TABS PO AMHS Sulfa/Trimethoprim (Bactrim Ds 800MG/160MG), 1 TAB PO 3XWK Triamcinolone Acet (Triamcinolone Acetonide), 1 APPLN MT TID Venetoclax (Venclexta), 12 TABS PO DAILY@1500 [Magic Mouth Wash], 5 ML PO Q4H Scheduled PRN Bisacodyl (Bisacodyl), 2 TAB PO HS PRN for Constipation Dexlansoprazole (Dexilant), 30 MG PO HS PRN for gerd Oxycodone Immediate Rel Tab (Roxicodone Ir), 10-15 MG PO Q4 PRN for Pain Allergies Coded Allergies: Erythromycin (Verified Adverse Reaction, Intermediate, GI SYMPTOMS, ) Prochlorperazine (Verified Adverse Reaction, Unknown, change in mental status, 05/18/17) Physical Exam Vital Signs Date Time Temp Pulse Resp B/P (MAP) Pulse Ox O2 Delivery O2 Flow Rate FiO2 05/18/17 01:51 87 05/18/17 01:50 95 Room Air 05/18/17 00:56 38.0 107 18 122/57 100 Room Air Physical Exam GENERAL: Patient is a healthy-appearing well-nourished male HEAD: Normocephalic atraumatic EYES: Ocular movements intact pupils equal and react to light OROPHARYNX mucous membranes are moist no exudates present no erythema or edema present NECK: Supple no nuchal rigidity CHEST: Good equal expansion LUNGS: Clear and equal to auscultation CARDIAC: Normal S1 and S2 ABDOMEN: Soft nontender no guarding BACK: No CVA tenderness EXTREMITIES: No pain upon palpation normal muscle strength in all groups no clubbing cyanosis or edema NEURO: Patient is following commands and answering questions appropriately. Alert and oriented x3 Cranial Nerves 2-12 grossly intact Medical Decision & Procedures ER Provider Diagnostic Interpretation: Radiology results as stated below were interpreted by me: Chest X-Ray: No evidence of congestion, pneumonia, pneumothorax. Powerport in place Laboratory Results 05/18/17 01:28 05/18/17 01:28 Test 05/18/17 01:28 05/18/17 01:29 05/18/17 01:45 05/18/17 01:50 Red Blood Count 2.57 M/uL (4.7-6.1) Mean Corpuscular Volume 88.3 fL (80-100) Mean Corpuscular Hemoglobin 30.4 pg (25-34) Mean Corpuscular Hemoglobin Concent 34.4 g/dl (32-36) RDW Standard Deviation 50.0 fL (36.4-46.3) RDW Coefficient of Variation 15.9 % (11.5-14.5) Mean Platelet Volume 10.6 fL (7.4-10.4) Prothrombin Time 10.7 SECONDS (9.0-12.0) Prothromb Time International Ratio 1.0 (0.9-1.1) Activated Partial Thromboplast Time 41.3 SECONDS (21.0-31.0) Partial Thromboplastin Ratio 1.6 Anion Gap 7.0 mmol/L (3-11) Est Creatinine Clear Calc Drug Dose 87.8 ml/min Estimated GFR () 79.5 Estimated GFR (Non- 68.6 BUN/Creatinine Ratio 20.6 (10-20) Calcium Level 8.5 mg/dl (8.5-10.1) Total Bilirubin 0.4 mg/dl (0.2-1) Aspartate Amino Transf (AST/SGOT) 12 U/L (15-37) Alanine Aminotransferase (ALT/SGPT) 19 U/L (12-78) Alkaline Phosphatase 95 U/L (45-117) Total Creatine Kinase 28 U/L (39-308) Creatine Kinase MB 0.9 ng/ml (0.5-3.6) Creatine Kinase MB Ratio 3.2 (0-3.0) Troponin I < 0.015 ng/ml (0-0.045) Total Protein 5.9 gm/dl (6.4-8.2) Albumin 2.9 gm/dl (3.4-5.0) Globulin 3.0 gm/dl (2.5-4.0) Albumin/Globulin Ratio 1.0 (0.9-2) Bedside Lactic Acid Venous < 0.30 mmol/L (0.90-1.70) Urine Color YELLOW Urine Appearance CLEAR (CLEAR) Urine pH 5.0 (4.5-7.5) Urine Specific [place] 1.015 (1.000-1.030) Urine Protein NEG (NEG) Urine Glucose (UA) NEG (NEG) Urine Ketones NEG (NEG) Urine Occult Blood NEG (NEG) Urine Nitrite NEG (NEG) Urine Bilirubin NEG (NEG) Urine Urobilinogen NEG (NEG) Urine Leukocyte Esterase NEG (NEG) Urine WBC (Auto) 1-5 /hpf (0-5) Urine RBC (Auto) 0-4 /hpf (0-4) Urine Hyaline Casts (Auto) 0 /lpf (0-5) Urine Epithelial Cells (Auto) 0-5 /lpf (0-5) Urine Bacteria (Auto) NEG (NEG) Influenza Type A Antigen POS for Influ A (NEG) Influenza Type B Antigen Neg for Influ B (NEG) Labs reviewed by ED physician. Medications Administered Medications (Trade) Dose Ordered Sig/Sidney Route Start Time Stop Time Status Last Admin Dose Admin Sodium Chloride 1,000 ml @ 999 mls/hr Q1H1M ONCE IV 05/18/17 01:07 05/18/17 02:07 DC 05/18/17 01:59 999 MLS/HR Albuterol Sulfate (Ventolin 0.083% 2.5MG/3ML Neb) 2.5 mg NOW STAT INH 05/18/17 01:44 05/18/17 01:46 DC 05/18/17 02:00 2.5 MG Cefepime HCl 2000 mg/Dextrose 122 ml @ 200 mls/hr NOW STAT IV 05/18/17 02:06 05/18/17 02:42 DC 05/18/17 02:30 200 MLS/HR Vancomycin HCl (Vancomycin 1gm/ 270ml Nss) 1 gm NOW STAT IV 05/18/17 02:24 05/18/17 02:28 DC 05/18/17 02:35 1 GM Levofloxacin (Levaquin / D5W) 750 mg NOW STAT IV 05/18/17 02:24 05/18/17 02:28 DC 05/18/17 02:35 750 MG Oseltamivir Phosphate (Tamiflu Cap) 75 mg NOW STAT PO 05/18/17 02:37 05/18/17 02:38 DC 05/18/17 03:37 75 MG ED Course 2044: Past medical records reviewed. The patient was evaluated in room B3. A complete history and physical examination was performed. 0107: Sodium Chloride 1000 ml @ 999 mls/hr IV 0144: Albuterol Sulfate 2.5mg INH 0206: Daptomycin 540mg/Sodium Chloride 60.8ml @ 100mls/hr IV, Cefepime HCl 2000mg/Dextrose 0224: Levofloxacin 750mg IV, Vancomycin HCl 1gm IV, Tamiflu Cap 75mg PO 0235: Upon reexamination the patient will be further evaluated. I discussed results and treatment plan with the patient. He verbalizes agreement and understanding. I spoke with Dr. Reina from the [facility] Hospitalist Service. The patient will be evaluated for further management. Medical Decision Differential diagnosis: Etiologies such as viral syndrome, otitis, pharyngitis, pneumonia, influenza, meningitis, urinary tract infection, sepsis, bacteremia, as well as others were entertained. This is a 32-year-old male who presents emergency department complaining of fever. The patient is neutropenic and his white blood cell count is below 1. Based on this finding the patient was started on cefepime and Levaquin as well as vancomycin. The patient is also positive for the flu therefore he was started on Tamiflu. His hemoglobin was found to be 7.8 therefore he was typed and crossed for 2 units of packed red blood cells. I did discuss the case with the hospitalist service who agreed to admit the patient. Patient was in agreement with the treatment plan. Medication Reconcilliation Current Medication List: was personally reviewed by me Blood Pressure Screening Patient's blood pressure: Normal blood pressure Blood pressure disposition: Did not require urgent referral Impression Primary Impression: Febrile neutropenia Additional Impression: Influenza Critical Care I have personally spent greater than 30 minutes of critical care time in the direct management of this patient. This includes bedside care, interpretation of diagnostic studies, and testing, discussion with consultants, patient, and family members, and other required patient management activities. This 30 minutes is in excess of all separately billable procedures. Scribe Attestation The scribe's documentation has been prepared under my direction and personally reviewed by me in its entirety. I confirm that the note above accurately reflects all work, treatment, procedures, and medical decision making performed by me. Departure Information Dispostion Being Evaluated By Hospitalist Referrals Dorian Franz M.D. (PCP) Forms HOME CARE DOCUMENTATION FORM, IMPORTANT VISIT INFORMATION Patient Instructions My [facility] Health Problem Qualifiers
[2017-05-18] MEDS ORDERED: ALBUTEROL 0.083% NEBU SOLN 3 ML VIAL INH STA (01:44)
[2017-05-18 01:58] LABS: PTT PATIENT 41.3 SECONDS (21.0-31.0)
[2017-05-18 01:59] LABS: ALBUMIN 2.9 gm/dl (3.4-5.0); ALT/SGPT 19 U/L (12-78); AST/SGOT 12 U/L (15-37); BLOOD UREA NITROGEN 28 mg/dl (7-18); CALCIUM 8.5 mg/dl (8.5-10.1); CARBON DIOXIDE 27 mmol/L (21-32); CREATININE 1.34 mg/dl (0.60-1.40); GLUCOSE 94 mg/dl (70-99); SODIUM 132 mmol/L (136-145)
[2017-05-18 02:03] LABS: ALKALINE PHOSPHATASE 95 U/L (45-117); CKMB 0.9 ng/ml (0.5-3.6); TOTAL PROTEIN 5.9 gm/dl (6.4-8.2)
[2017-05-18] MEDS ORDERED: DAPTOmycin IV 540 MG in SODIUM CHLORIDE 0.9% 50ML 50 ML IV STA (02:06)
[2017-05-18] MEDS ORDERED: CEFEPIME IV 2,000 MG in DEXTROSE 5% 100ML 100 ML IV STA (02:06)
[2017-05-18 02:09] LABS: HEMATOCRIT 22.7 % (42-52); HEMOGLOBIN 7.8 g/dL (14.0-18.0); MEAN CELL VOLUME 88.3 fL (80-100); MEAN CORPUSCULAR HEMOGLOBIN 30.4 pg (25-34); MEAN CORPUSCULAR HGB CONC 34.4 g/dl (32-36); MEAN PLATELET VOLUME 10.6 fL (7.4-10.4); PLATELET COUNT 59 K/uL (130-400); RED CELL DISTRIBUTION WIDTH CV 15.9 % (11.5-14.5)
[2017-05-18] MEDS ORDERED: VANCOMYCIN 1GM/270ML NSS IV STA (02:24)
[2017-05-18] MEDS ORDERED: LEVAQUIN 750MG / 150ML D5W IV STA (02:24)
[2017-05-18 02:36] LABS: INFLUENZA B ANTIGEN Neg for Influ B (NEG)
[2017-05-18] MEDS ORDERED: OSELTAMIVIR PHOSPHATE 75 MG CAP PO STA (02:37)
[2017-05-18] MEDS ORDERED: MAGIC MOUTH WASH PO SCH (04:00)
[2017-05-18] MEDS ORDERED: OXYCODONE HCL IR 5 MG TAB (IMMEDIATE RELEASE) PO PRN (04:00)
[2017-05-18] MEDS ORDERED: ONDANSETRON INJ 2 MG/ML 2 ML VIAL IV PRN (04:00)
[2017-05-18] MEDS ORDERED: MAGNESIUM HYDROXIDE SUSP 30 ML UDC PO PRN (04:00)
[2017-05-18] MEDS ORDERED: BISACODYL 5 MG TABEC PO PRN (04:00)
[2017-05-18] MEDS ORDERED: VANCOMYCIN CONSULT ACTIVE PRN (04:00)
[2017-05-18] MEDS ORDERED: PIPERACILL/TAZOBAC CONSULT ACTIVE PRN (04:15)
[2017-05-18] MEDS ORDERED: PIPERACILL/TAZOBAC IV 3.375 GM in DEXTROSE 5% 100ML IV ONE (05:00)
[2017-05-18] MEDS ORDERED: VANCOMYCIN INJ 1,250 MG in SODIUM CHLORIDE 0.9% 250ML 250 ML IV SCH (05:00)
[2017-05-18] MEDS: METHADONE HCL 10 MG TAB PO SCH ×3 (05:42→21:00)
[2017-05-18] MEDS ORDERED: LORAZEPAM 1 MG TAB PO SCH ×2 (05:45→21:00)
[2017-05-18] MEDS: SODIUM CHLORIDE 0.9% 1000ML 1,000 ML IV SCH ×3 (05:55→21:01)
[2017-05-18] MEDS ORDERED: DEXAMETHASONE CONC SOLN 3.75 MG, NYSTATIN SUSP 30 ML, DiphenhydrAMINE HCL SYRUP 300 MG,... PO SCH ×5 (06:00)
[2017-05-18] MEDS ORDERED: PIPERACILL/TAZOBAC IV 3.375 GM in DEXTROSE 5% 100ML 100 ML IV SCH (06:00)
--- NOTE | 2017-05-18 07:44 | History and Physical ---
History & Physical Date & Time of Service: May 18, 2017 at 07:24 Chief Complaint: Febrile Neutropenia, Influenza Primary Care Physician: Dorian Franz M.D. History of Present Illness Source: patient, hospital records 32-year-old male with a past medical history of B-cell lymphoma currently undergoing EPOCH-R plus Venclexta chemotherapy presented to the ER with neutropenic fever. The patient stated that he developed fever with chills yesterday which was associated with weakness, fatigue, body aches. He has also had a cough for about 6 weeks but denies any nausea, vomiting or chills. Has an ingrown toenail on of his right lower extremity. He has had multiple admissions for neutropenic fever in the past. Denies any dysuria, increased frequency or urgency. Past Medical/Surgical History Medical Problems: (1) GERD (gastroesophageal reflux disease) Status: Chronic (2) Lymphoma Status: Chronic Surgical Problems: (1) History of liver biopsy Status: Resolved Family History Cancer Heart disease Social History Smoking Status: Never Smoker Smokeless Tobacco Use: No Alcohol Use: none Drug Use: none Marital Status: Housing status: lives with family Occupational Status: employed Immunizations History of Influenza Vaccine: No History of Tetanus Vaccine?: Unknown History of Pneumococcal: Unknown History of Hepatitis B Vaccine: Unknown Multi-Drug Resistant Organisms History of MDRO: No Allergies Coded Allergies: Erythromycin (Verified Adverse Reaction, Intermediate, GI SYMPTOMS, ) Prochlorperazine (Verified Adverse Reaction, Unknown, change in mental status, 05/18/17) Home Medications Scheduled Acyclovir (Zovirax), 800 MG PO BID Cefpodoxime Proxetil (Cefpodoxime Proxetil), 1 TAB PO BID Cetirizine Hcl (Cetirizine Hcl), 1 TAB PO DAILY Dexlansoprazole (Dexilant), 60 MG PO QAM Docusate Sodium (Docusate Sodium), 100 MG PO QAM Docusate Sodium (Docusate Sodium), 200 MG PO HS Dronabinol (Marinol), 5 MG PO TIDM Enteral Nutrition Formula (Boost Plus), 1 CAN PO TID Escitalopram Oxalate (Lexapro), 20 MG PO QAM Gabapentin (Gabapentin), 600 MG PO TID Lorazepam (Ativan), 1 MG PO HS Methadone Hcl (Dolophine), 15 MG PO Q8 Phenol-Sodium Borate (Ulcerease), 15 ML PO Q6H Sennosides (Senna-Lax), 2 TABS PO AMHS Sulfa/Trimethoprim (Bactrim Ds 800MG/160MG), 1 TAB PO 3XWK Triamcinolone Acet (Triamcinolone Acetonide), 1 APPLN MT TID Venetoclax (Venclexta), 12 TABS PO DAILY@1500 [Magic Mouth Wash], 5 ML PO Q4H Scheduled PRN Bisacodyl (Bisacodyl), 2 TAB PO HS PRN for Constipation Dexlansoprazole (Dexilant), 30 MG PO HS PRN for gerd Oxycodone Immediate Rel Tab (Roxicodone Ir), 10-15 MG PO Q4 PRN for Pain Review of Systems Constitutional: + fever, + chills, + sweats, + fatigue, No weight loss Eyes: No worsening of vision ENT: No hearing loss Respiratory: + cough, + sputum, No shortness of breath Cardiovascular: No chest pain Abdomen: No pain, No nausea, No vomiting Musculoskeletal: No joint pain Genitourinary - Male: No hematuria Neurologic: No memory loss Psychiatric: No depression symptoms Endocrine: No fatigue Physical Exam Vital Signs Date Time Temp Pulse Resp B/P (MAP) Pulse Ox O2 Delivery O2 Flow Rate FiO2 05/18/17 06:05 37.3 94 20 104/63 98 05/18/17 05:35 37.1 100 16 105/67 100 05/18/17 04:29 37.0 91 18 112/65 Room Air 05/18/17 04:05 37.4 05/18/17 03:56 90 18 109/62 95 Room Air 05/18/17 01:51 87 05/18/17 01:50 95 Room Air 05/18/17 00:56 38.0 107 18 122/57 100 Room Air General Appearance: WD/WN, no apparent distress Head: normocephalic Eyes: normal inspection ENT: hearing grossly normal Neck: supple Respiratory/Chest: normal breath sounds, no respiratory distress, no accessory muscle use Abdomen/GI: non tender, soft Extremities/Musculoskelatal: normal inspection, no calf tenderness Neurologic/Psych: alert, normal mood/affect, oriented x 3 Diagnostics Laboratory Results Results Past 24 Hours Test 05/18/17 01:28 05/18/17 01:29 05/18/17 01:45 05/18/17 01:50 Range/Units White Blood Count 0.10 4.8-10.8 K/uL Red Blood Count 2.57 4.7-6.1 M/uL Hemoglobin 7.8 14.0-18.0 g/dL Hematocrit 22.7 42-52 % Mean Corpuscular Volume 88.3 80-100 fL Mean Corpuscular Hemoglobin 30.4 25-34 pg Mean Corpuscular Hemoglobin Concent 34.4 32-36 g/dl RDW Standard Deviation 50.0 36.4-46.3 fL RDW Coefficient of Variation 15.9 11.5-14.5 % Platelet Count 59 130-400 K/uL Mean Platelet Volume 10.6 7.4-10.4 fL Prothrombin Time 10.7 9.0-12.0 SECONDS Prothromb Time International Ratio 1.0 0.9-1.1 Activated Partial Thromboplast Time 41.3 21.0-31.0 SECONDS Partial Thromboplastin Ratio 1.6 Sodium Level 132 136-145 mmol/L Potassium Level 4.0 3.5-5.1 mmol/L Chloride Level 98 98-107 mmol/L Carbon Dioxide Level 27 21-32 mmol/L Anion Gap 7.0 3-11 mmol/L Blood Urea Nitrogen 28 7-18 mg/dl Creatinine 1.34 0.60-1.40 mg/dl Est Creatinine Clear Calc Drug Dose 87.8 ml/min Estimated GFR () 79.5 Estimated GFR (Non- 68.6 BUN/Creatinine Ratio 20.6 10-20 Random Glucose 94 70-99 mg/dl Calcium Level 8.5 8.5-10.1 mg/dl Total Bilirubin 0.4 0.2-1 mg/dl Aspartate Amino Transf (AST/SGOT) 12 15-37 U/L Alanine Aminotransferase (ALT/SGPT) 19 12-78 U/L Alkaline Phosphatase 95 45-117 U/L Total Creatine Kinase 28 39-308 U/L Creatine Kinase MB 0.9 0.5-3.6 ng/ml Creatine Kinase MB Ratio 3.2 0-3.0 Troponin I < 0.015 0-0.045 ng/ml Total Protein 5.9 6.4-8.2 gm/dl Albumin 2.9 3.4-5.0 gm/dl Globulin 3.0 2.5-4.0 gm/dl Albumin/Globulin Ratio 1.0 0.9-2 Bedside Lactic Acid Venous < 0.30 0.90-1.70 mmol/L Urine Color YELLOW Urine Appearance CLEAR CLEAR Urine pH 5.0 4.5-7.5 Urine Specific [place] 1.015 1.000-1.030 Urine Protein NEG NEG Urine Glucose (UA) NEG NEG Urine Ketones NEG NEG Urine Occult Blood NEG NEG Urine Nitrite NEG NEG Urine Bilirubin NEG NEG Urine Urobilinogen NEG NEG Urine Leukocyte Esterase NEG NEG Urine WBC (Auto) 1-5 0-5 /hpf Urine RBC (Auto) 0-4 0-4 /hpf Urine Hyaline Casts (Auto) 0 0-5 /lpf Urine Epithelial Cells (Auto) 0-5 0-5 /lpf Urine Bacteria (Auto) NEG NEG Influenza Type A Antigen POS for Influ A NEG Influenza Type B Antigen Neg for Influ B NEG Microbiology Results 05/18/17 Blood Culture, Received Pending 05/18/17 Blood Culture, Received Pending Impression Assessment and Plan 32-year-old male with a past medical history of B-cell lymphoma currently undergoing EPOCH-R plus Venclexta chemotherapy presented to the ER with neutropenic fever. The patient stated that he developed fever with chills yesterday which was associated with weakness, fatigue, body aches. He has also had a cough for about 6 weeks but denies any nausea, vomiting or chills. Has an ingrown toenail on of his right lower extremity. Neutropenic fever -Likely secondary to influenza A -Tamiflu 75 mg twice a day -Empiric coverage for pneumonia with Levaquin, vancomycin and Zosyn - Acyclovir 800 mg twice a day - Tylenol/Motrin as needed - Neutropenic precautions Chronic pain: Continue oxycodone every 4 hours as needed Pancytopenia: Likely secondary to bone marrow suppression from chemotherapy - Blood type and crossed, 1 unit transfused -Monitor CBC B cell Lymphoma - Continue daily Venclexta with chemo regimen - Continue Methadone 15 mg every 8 hours and oxycodone for pain control Neuropathic Pain - Continue home Gabapentin 600mg PO TID Nausea - Continue home Zofran and Marinol for Nausea/ Appetite stimulation Anxiety - Continue home Ativan Opioid-induced constipation - Dulcolax, Docusate, Senna DVT prophylaxis: SCDs No chemical anticoagulation considering thrombocytopenia Full code Disposition: Admitted to [facility] Attending addendum: I have physically seen this patient, have supervised the medical residents activities, and agree with the H&P unless as otherwise noted. Assessment and Plan: Neutropenic fever/influenza A/presumptive pneumonia/diffuse large B-cell lymphoma-- Tamiflu Vancomycin IV, Zosyn IV, Levaquin IV Continue acyclovir 800 mg by mouth twice a day for routine prophylaxis Neutropenic precautions Daily CBC with differential, BMP and magnesium level Neulasta one week ago, we'll consult his oncologist for repeat dosing Continue other routine medications for pain and nausea and anxiety Level of Care Med/Surg Advanced Directives Existing Advance Directive: No Existing Living Will: No Existing Power of Smearer: No Resuscitation Status FULL RESUSCITATION VTE Prophylaxis VTE Risk Assessment Done? Y/N: Yes Risk Level: Moderate Given or contraindicated: SCD's Resident Tracking Resident Involvement: Resident Care Provided Care Provided: Adult Hospital Medicine
[2017-05-18] MEDS: TRIAMCINOLONE ACET 0.1% ORABASE 5 GM TUBE MT SCH ×3 (07:54→20:00)
[2017-05-18] MEDS: SENNA 8.6 MG TAB PO SCH ×2 (07:55→21:00)
[2017-05-18] MEDS: ESCITALOPRAM OXALATE 20 MG TAB PO SCH (07:55)
[2017-05-18] MEDS: DOCUSATE SODIUM 100 MG CAP PO SCH (07:55)
[2017-05-18] MEDS: GABAPENTIN 600 MG TAB PO SCH ×3 (07:55→21:00)
[2017-05-18] MEDS: ACYCLOVIR 400 MG TAB PO SCH ×2 (07:56→21:00)
[2017-05-18] MEDS: CETIRIZINE HCL 10 MG TAB PO SCH (07:56)
[2017-05-18] MEDS: DEXAMETHASONE CONC SOLN 3.75 MG, NYSTATIN SUSP 30 ML, DiphenhydrAMINE HCL SYRUP 300 MG,... PO SCH ×25 (08:30→23:13)
[2017-05-18] MEDS: DRONABINOL 2.5 MG CAP PO SCH ×3 (08:30→15:53)
[2017-05-18] MEDS: BOOST PLUS VANILLA PO SCH ×3 (08:30→20:00)
--- NOTE | 2017-05-18 08:43 | DIAGNOSTIC IMAGING REPORT ---
CHEST ONE VIEW PORTABLE CLINICAL HISTORY: Sepsis. Lymphoma. COMPARISON STUDY: Chest radiograph and chest CT May 13, 2017. FINDINGS: A right-sided Uschsk-t-Nldo is in place. No pneumothorax or pleural effusion is noted. There is no evidence for pulmonary edema. Cardiomediastinal silhouette is normal. An indeterminate left basilar opacity is similar to CT of May 13, 2017. The appearance of the chest is unchanged. IMPRESSION: No change in an indeterminate left basilar opacity since prior chest CT of May 13, 2017. No change in appearance of the chest. Electronically signed by: Anderson Randhawa M.D. 05/18/2017 8:42 AM Dictated Date/Time: 05/18/2017 8:40 AM
[2017-05-18] MEDS ORDERED: PIPERACILL/TAZOBAC IV 3.375 GM in DEXTROSE 5% 100ML IV SCH (10:00)
[2017-05-18] MEDS ORDERED: DEXLANSOPRAZOLE 30 MG PO PRN (14:00)
[2017-05-18] MEDS: ACETAMINOPHEN 325 MG TAB PO PRN ×2 (14:24→21:01)
[2017-05-18] MEDS ORDERED: VENETOCLAX 100 MG TAB PO SCH (15:00)
--- NOTE | 2017-05-18 16:29 | Pharmacy Progress Note ---
Pharmacy Abx Initial Consult Date of Service May 18, 2017. Pharmacy Dosing Scope Date of Consult: 05/18/17 Consultation requested by: Dr. Escobar Pharmacy is consulted to initiate Vancomycin IV dosing therapy for neutropenic fever, order appropriate labs and adjust drug dose/frequency. Subjective The patient is a 32 year old male admitted on May 18, 2017 at 03:55. Objective Height (Feet): 6 Height (Inches): 1.00 Weight (Kilograms): 89.900 Vital Signs (Past 12Hrs) Vital Signs Past 12 Hours Date Time Temp Pulse Resp B/P (MAP) Pulse Ox O2 Delivery O2 Flow Rate FiO2 05/18/17 15:19 36.8 96 16 92/57 (69) 97 Room Air 05/18/17 11:55 36.6 78 16 93/52 96 05/18/17 10:55 36.8 84 16 99/58 94 05/18/17 10:24 36.8 81 16 94/53 05/18/17 10:15 36.8 86 16 84/40 (55) 96 Room Air 05/18/17 10:15 36.8 86 16 84/40 96 05/18/17 08:30 98 Room Air 05/18/17 06:05 37.3 94 20 104/63 98 05/18/17 05:35 37.1 100 16 105/67 100 05/18/17 04:29 37.0 91 18 112/65 Room Air Lab Results (24Hrs) Laboratory Tests (24 Hours) Test 05/18/17 01:28 Total Creatine Kinase 28 U/L (39-308) L White Blood Count 0.10 K/uL (4.8-10.8) *L Micro Results Date/Time Source Procedure Growth Status 05/18/17 01:37 Blood Blood Culture Pending Received 05/18/17 01:28 Blood Blood Culture Pending Received Risk Factors for Resistance * Hospitalization for 48 hours or more within the past 90 days (admitted: , 04/26/17, ) * Immunocompromised: Venclexta 1200mg PO daily (chemotherapy); h/o B-cell lymphoma * History of infection with a multidrug-resistant organism: [organism] [site of infection] [date] * Antimicrobial use within the last 90 days: Item Value Date Time Caspofungin 70 mg/ 260 ml @ 260 mls/hr 03/13/17 2100 Sodium Chloride 2100/IV 03/13/17 2208 Caspofungin 50 mg/ 260 ml @ 260 mls/hr 03/14/17 2100 Sodium Chloride DAILY@2100/IV 03/15/17 2202 Cefepime HCl 1000 11 ml @ 5.5 mls/min 03/12/17 2251 mg/Syringe ONE STAT/IV 03/13/17 0053 Cefepime HCl 1000 11 ml @ 5.5 mls/min 03/13/17 0800 mg/Syringe Q8H/IV 03/14/17 2331 Cefepime HCl 1000 11 ml @ 5.5 mls/min 03/15/17 1100 mg/Syringe Q8H/IV 03/16/17 1053 Cefepime HCl 2000 122 ml @ 200 mls/hr 04/26/17 0223 mg/Dextrose NOW STAT/IV 04/26/17 0246 Cefepime HCl 2000 20 ml @ 5 mls/min 04/26/17 1100 mg/Syringe Q8H/IV 04/29/17 1838 Cefepime HCl 1000 111 ml @ 200 mls/hr 05/13/17 1836 mg/Dextrose NOW STAT/IV 05/13/17 1900 Cefepime HCl 2000 20 ml @ 5 mls/min 05/14/17 0600 mg/Syringe Q8/IV 05/15/17 1432 Cefepime HCl 2000 122 ml @ 200 mls/hr 05/18/17 0206 mg/Dextrose NOW STAT/IV 05/18/17 0230 Ceftriaxone 70 ml @ 100 mls/hr 04/29/17 2200 Sodium 2000 mg/ Q24H/IV 04/30/17 0122 Dextrose Ceftriaxone 70 ml @ 100 mls/hr 04/30/17 1500 Sodium 2000 mg/ Q24H/IV 04/30/17 1602 Dextrose Daptomycin 540 mg/ 60.8 ml @ 100 mls/hr 05/18/17 0206 Sodium Chloride NOW STAT/IV Levofloxacin 750 mg 03/12/17 2320 (Levaquin / D5W) NOW STAT/IV 03/13/17 0008 Levofloxacin 750 mg 05/13/17 1836 (Levaquin / D5W) NOW STAT/IV 05/13/17 1900 Levofloxacin 750 150 ml @ 100 mls/hr 05/14/17 1900 mg/Prmx Q24H/IV 05/14/17 2029 Levofloxacin 750 mg 05/18/17 0224 (Levaquin / D5W) NOW STAT/IV 05/18/17 0235 Levofloxacin 750 150 ml @ 100 mls/hr 05/19/17 0230 mg/Prmx Q24H/IV Oseltamivir 75 mg 04/26/17 0223 Phosphate NOW STAT/PO 04/26/17 0245 (Tamiflu Cap) Oseltamivir 75 mg 05/18/17 0237 Phosphate NOW STAT/PO 05/18/17 0337 (Tamiflu Cap) Oseltamivir 75 mg 05/18/17 1800 Phosphate BID@0600,1800/PO (Tamiflu Cap) Piperacillin Sod/ 115 ml @ 230 mls/hr 05/18/17 0500 Tazobactam Sod NOW ONCE/IV 05/18/17 0514 3.375 gm/Dextrose Piperacillin Sod/ 115 ml @ 28.75 mls/hr 05/18/17 1000 Tazobactam Sod Q8H/IV 3.375 gm/Dextrose Vancomycin HCl 290 ml @ 125 mls/hr 04/26/17 0223 2000 mg/Sodium NOW STAT/IV 04/26/17 0246 Chloride Vancomycin HCl 530 ml @ 200 mls/hr 04/26/17 0900 1500 mg/Sodium Q12H/IV 04/27/17 1439 Chloride Vancomycin HCl 530 ml @ 200 mls/hr 04/28/17 0600 1500 mg/Sodium Q14H/IV 04/28/17 0614 Chloride Vancomycin HCl 530 ml @ 200 mls/hr 04/29/17 0000 1500 mg/Sodium Q18H/IV 04/29/17 1801 Chloride Assessment & Plan Assessment 32 year old male * multiple recent hospital admissions for neutropenic fever (03/13/17, 04/26/17, ) * h/o B-cell lymphoma currently being treated with Venclextra 1200mg PO daily Plan Pharmacy has been consulted for treatment of neutropenic fever Vancomycin IV * Loading dose: 1000 mg x 1 dose in the ED PLUS 1250mg IV x1 dose upon admission (total dose= 2250mg; 25 mg/kg) * Maintenance dose: 1500 mg IV (17 mg/kg) every 18 hours * Maintenance therapy based on previous admission where patient displayed similar p'kinetics * Goal trough level for neutropenic fever : 15 to 20 mcg/mL * Trough level ordered for 05/21/17 ~30 minutes before the 4th maintenance dose * Per IDSA neutropenic fever guidelines: If vancomycin or other coverage for gram-positive organisms was started initially, it may be stopped after 2 days if there is no evidence for a gram-positive infection Pharmacy will continue to follow and will adjust dose/frequency as necessary. Thank you.
[2017-05-18] MEDS: OSELTAMIVIR PHOSPHATE 75 MG CAP PO SCH (17:29)
--- NOTE | 2017-05-18 18:32 | Family Medicine Progress Note ---
Progress Note Date of Service May 18, 2017. Subjective Pt evaluation today including: conversation w/ patient, conversation w/ family ( on speakerphone taking part in conversation w pt), physical exam, chart review, lab review, review of studies Patient was very drowsy this morning, reports being up all night. Patient reports feeling feverish and having a cough. Patient denies n/v/d/f/cp/sob/ abpain. Constitutional: + fever, + chills Respiratory: + cough, + sputum, No wheezing Cardiovascular: No chest pain, No edema Abdomen: No pain, No nausea, No vomiting Male : No dysuria Medications Current Inpatient Medications Medications (Trade) Dose Ordered Sig/Sidney Route Start Time Stop Time Status Last Admin Dose Admin Acetaminophen (Tylenol Tab) 650 mg Q4H PRN PO 05/18/17 04:00 06/17/17 03:59 05/18/17 14:24 650 MG Magnesium Hydroxide (Milk Of Magnesia Susp) 30 ml Q6H PRN PO 05/18/17 04:00 06/17/17 03:59 Ondansetron HCl (Zofran Inj) 4 mg Q6H PRN IV 05/18/17 04:00 06/17/17 03:59 Acyclovir (Zovirax Tab) 800 mg BID PO 05/18/17 08:00 05/28/17 08:59 05/18/17 07:56 800 MG Bisacodyl (Dulcolax Tab) 10 mg HS PRN PO 05/18/17 04:00 06/17/17 03:59 Docusate Sodium (coLACE CAP) 100 mg QAM PO 05/18/17 08:00 06/17/17 08:59 05/18/17 07:55 100 MG Docusate Sodium (coLACE CAP) 200 mg HS PO 05/18/17 21:00 06/17/17 20:59 Dronabinol (Marinol Cap) 5 mg TIDM PO 05/18/17 08:00 06/17/17 07:59 Enteral Nutritional Formula (Boost Plus Vanilla) 1 can TID PO 05/18/17 08:00 06/17/17 08:59 Escitalopram Oxalate (Lexapro Tab) 20 mg QAM PO 05/18/17 08:00 06/17/17 08:59 05/18/17 07:55 20 MG Gabapentin (Neurontin Tab) 600 mg TID PO 05/18/17 08:00 06/17/17 08:59 05/18/17 14:20 600 MG Lorazepam (Ativan Tab) 1 mg HS PO 05/18/17 21:00 06/17/17 20:59 Methadone HCl (Dolophine Tab) 15 mg Q8 PO 05/18/17 06:00 06/01/17 05:59 05/18/17 14:24 15 MG Oxycodone HCl (Roxicodone Immediate Rel Tab) 10 mg Q4 PRN PO 05/18/17 04:00 06/01/17 03:59 Senna (Senokot Tab) 17.2 mg AMHS PO 05/18/17 08:00 06/17/17 08:59 05/18/17 07:55 17.2 MG Triamcinolone Acetonide (Triamcinolone Dental Paste) 1 appln TID MT 05/18/17 08:00 06/17/17 08:59 05/18/17 07:54 1 APPLN Cetirizine HCl (zyrTEC TAB) 10 mg DAILY PO 05/18/17 08:00 06/17/17 07:59 05/18/17 07:56 10 MG Miscellaneous Information (Order Awaiting Action) 1 ea QS N/A 05/18/17 08:00 06/17/17 07:59 Miscellaneous Information (Consult) 1 ea UD PRN N/A 05/18/17 04:00 06/17/17 03:59 Oseltamivir Phosphate (Tamiflu Cap) 75 mg BID@0600,1800 PO 05/18/17 18:00 05/22/17 18:01 05/18/17 17:29 75 MG Sodium Chloride 1,000 ml @ 125 mls/hr Q8H IV 05/18/17 05:00 06/17/17 04:59 05/18/17 14:21 125 MLS/HR Levofloxacin 750 mg/Prmx 150 ml @ 100 mls/hr Q24H IV 05/19/17 02:30 05/24/17 03:59 Dexamethasone/ Nystatin/ Diphenhydramine HCl/Sucrose/ Microcrystalline Cellulose/Barcode Q4 PO 05/18/17 08:00 06/17/17 07:59 Vancomycin HCl 1500 mg/Sodium Chloride 530 ml @ 200 mls/hr Q18H IV 05/19/17 00:00 05/25/17 00:00 Venetoclax (Venclexta) 1,200 mg DAILY@1500 PO 05/18/17 15:00 06/17/17 14:59 05/18/17 15:54 1,200 MG Dexlansoprazole (Dexilant Dr) 30 mg HS PRN PO 05/18/17 14:00 06/17/17 13:59 Dexlansoprazole (Dexilant Dr) 60 mg QAM PO 05/19/17 08:00 06/18/17 07:59 Objective Vital Signs Date Time Temp Pulse Resp B/P (MAP) Pulse Ox O2 Delivery O2 Flow Rate FiO2 05/18/17 16:00 Room Air 05/18/17 15:19 36.8 96 16 92/57 (69) 97 Room Air 05/18/17 11:55 36.6 78 16 93/52 96 05/18/17 10:55 36.8 84 16 99/58 94 05/18/17 10:24 36.8 81 16 94/53 05/18/17 10:15 36.8 86 16 84/40 (55) 96 Room Air 05/18/17 10:15 36.8 86 16 84/40 96 05/18/17 08:30 98 Room Air 05/18/17 06:05 37.3 94 20 104/63 98 05/18/17 05:35 37.1 100 16 105/67 100 05/18/17 04:29 37.0 91 18 112/65 Room Air 05/18/17 04:05 37.4 05/18/17 03:56 90 18 109/62 95 Room Air 05/18/17 01:51 87 05/18/17 01:50 95 Room Air 05/18/17 00:56 38.0 107 18 122/57 100 Room Air Physical Exam General Appearance: WD/WN, no apparent distress Respiratory/Chest: chest non-tender, lungs clear, normal breath sounds Cardiovascular: regular rate, rhythm, no edema, no murmur Neurologic/Psychiatric: alert, normal mood/affect, oriented x 3 Skin: warm/dry, no rash Laboratory Results 05/18/17 01:28 05/18/17 01:28 Test 05/18/17 01:28 05/18/17 01:29 05/18/17 01:45 05/18/17 01:50 Red Blood Count 2.57 M/uL (4.7-6.1) Mean Corpuscular Volume 88.3 fL (80-100) Mean Corpuscular Hemoglobin 30.4 pg (25-34) Mean Corpuscular Hemoglobin Concent 34.4 g/dl (32-36) RDW Standard Deviation 50.0 fL (36.4-46.3) RDW Coefficient of Variation 15.9 % (11.5-14.5) Mean Platelet Volume 10.6 fL (7.4-10.4) Prothrombin Time 10.7 SECONDS (9.0-12.0) Prothromb Time International Ratio 1.0 (0.9-1.1) Activated Partial Thromboplast Time 41.3 SECONDS (21.0-31.0) Partial Thromboplastin Ratio 1.6 Anion Gap 7.0 mmol/L (3-11) Est Creatinine Clear Calc Drug Dose 87.8 ml/min Estimated GFR () 79.5 Estimated GFR (Non- 68.6 BUN/Creatinine Ratio 20.6 (10-20) Calcium Level 8.5 mg/dl (8.5-10.1) Total Bilirubin 0.4 mg/dl (0.2-1) Aspartate Amino Transf (AST/SGOT) 12 U/L (15-37) Alanine Aminotransferase (ALT/SGPT) 19 U/L (12-78) Alkaline Phosphatase 95 U/L (45-117) Total Creatine Kinase 28 U/L (39-308) Creatine Kinase MB 0.9 ng/ml (0.5-3.6) Creatine Kinase MB Ratio 3.2 (0-3.0) Troponin I < 0.015 ng/ml (0-0.045) Total Protein 5.9 gm/dl (6.4-8.2) Albumin 2.9 gm/dl (3.4-5.0) Globulin 3.0 gm/dl (2.5-4.0) Albumin/Globulin Ratio 1.0 (0.9-2) Bedside Lactic Acid Venous < 0.30 mmol/L (0.90-1.70) Urine Color YELLOW Urine Appearance CLEAR (CLEAR) Urine pH 5.0 (4.5-7.5) Urine Specific [place] 1.015 (1.000-1.030) Urine Protein NEG (NEG) Urine Glucose (UA) NEG (NEG) Urine Ketones NEG (NEG) Urine Occult Blood NEG (NEG) Urine Nitrite NEG (NEG) Urine Bilirubin NEG (NEG) Urine Urobilinogen NEG (NEG) Urine Leukocyte Esterase NEG (NEG) Urine WBC (Auto) 1-5 /hpf (0-5) Urine RBC (Auto) 0-4 /hpf (0-4) Urine Hyaline Casts (Auto) 0 /lpf (0-5) Urine Epithelial Cells (Auto) 0-5 /lpf (0-5) Urine Bacteria (Auto) NEG (NEG) Influenza Type A Antigen POS for Influ A (NEG) Influenza Type B Antigen Neg for Influ B (NEG) Assessment and Plan 32-year-old male with a past medical history of B-cell lymphoma currently undergoing EPOCH-R plus Venclexta chemotherapy presented to the ER with neutropenic fever. The patient stated that he developed fever with chills yesterday which was associated with weakness, fatigue, body aches. He has also had a cough for about 6 weeks but denies any nausea, vomiting or chills. Has an ingrown toenail on of his right lower extremity. 05/18-- Patient was seen to be positive for flu, likely the cause of his fever. Goal of pt inpatient therapy is to establish cause of fever, prophylax with Tamaflu, as well as antibiotics. With that said, it may be more ideal for the patient to recover influenza at his home as to reduce the risk of acquire an additional nosocomial infections. Will consider discharge after >24 hours without fever. Will continue to monitor CBC as well as the patients blood cultures. Neutropenic fever -Influenza A + -Tamiflu 75 mg twice a day -Empiric coverage for pneumonia with Levaquin, vancomycin and Zosyn - Acyclovir 800 mg twice a day - Tylenol/Motrin as needed - Neutropenic precautions Chronic pain: - Continue oxycodone every 4 hours as needed Pancytopenia: -Likely secondary to bone marrow suppression from chemotherapy - Blood type and crossed, 1 unit transfused -Monitor CBC B cell Lymphoma - Continue daily Venclexta with chemo regimen - Continue Methadone 15 mg every 8 hours and oxycodone for pain control Neuropathic Pain - Continue home Gabapentin 600mg PO TID Nausea - Continue home Zofran and Marinol for Nausea/ Appetite stimulation Anxiety - Continue home Ativan Opioid-induced constipation - Dulcolax, Docusate, Senna DVT prophylaxis: SCDs No chemical anticoagulation considering thrombocytopenia Full code Disposition: Admitted to [facility] Resident Physician Supervision Note: I interviewed and examined the patient. Discussed with Dr. Lopes and agree with findings and plan as documented in the note. Any exceptions or clarifications are listed here: None Documented By: Dc Daniel feeling better no further fevers vitals noted nad breathing unlabored, great toe L foot sl ingrown but no cellulitis - no erythema/tenderness/fluctuance/exudate neutropenic fever -neutropenia from chemo, fever from flu -just had gCSF last week - uncertain if can dose again this soon, but is recovering well -empiric abx pending cultures -tamiflu anemia - was transfused 2 units by admitting team f/u CBC
[2017-05-18] MEDS ORDERED: DOCUSATE SODIUM 100 MG CAP PO SCH (21:00)
[2017-05-19] VITALS: O2SAT 98
[2017-05-19] MEDS ORDERED: VANCOMYCIN INJ 1,500 MG in SODIUM CHLORIDE 0.9% 500ML 500 ML IV SCH ×2
[2017-05-19] MEDS: DEXAMETHASONE CONC SOLN 3.75 MG, NYSTATIN SUSP 30 ML, DiphenhydrAMINE HCL SYRUP 300 MG,... PO SCH ×15 (02:08→11:15)
[2017-05-19] MEDS ORDERED: LEVOFLOXACIN / D5W 750 MG in PREMIXED IN D5W 150 ML IV SCH (02:30)
[2017-05-19] MEDS: SODIUM CHLORIDE 0.9% 1000ML 1,000 ML IV SCH (05:12)
[2017-05-19] MEDS: OSELTAMIVIR PHOSPHATE 75 MG CAP PO SCH (05:44)
[2017-05-19] MEDS: METHADONE HCL 10 MG TAB PO SCH (05:44)
[2017-05-19 06:10] VITALS: Ht 185.4 cm; Wt 92.6 kg
[2017-05-19 06:20] LABS: HEMATOCRIT 23.8 % (42-52); HEMOGLOBIN 8.3 g/dL (14.0-18.0); MEAN CELL VOLUME 86.2 fL (80-100); MEAN CORPUSCULAR HEMOGLOBIN 30.1 pg (25-34); MEAN CORPUSCULAR HGB CONC 34.9 g/dl (32-36); MEAN PLATELET VOLUME 9.5 fL (7.4-10.4); PLATELET COUNT 70 K/uL (130-400); RED CELL DISTRIBUTION WIDTH CV 16.4 % (11.5-14.5); RED CELL DISTRIBUTION WIDTH SD 50.6 fL (36.4-46.3); WHITE BLOOD COUNT 0.26 K/uL (4.8-10.8)
[2017-05-19 06:47] LABS: CALCIUM 8.8 mg/dl (8.5-10.1); CREATININE 1.07 mg/dl (0.60-1.40)
[2017-05-19 07:32] VITALS: BP 96/61; PULSE 101; TEMP 37.4; O2SAT 99
[2017-05-19] MEDS: DOCUSATE SODIUM 100 MG CAP PO SCH (07:57)
[2017-05-19] MEDS: GABAPENTIN 600 MG TAB PO SCH (07:57)
[2017-05-19] MEDS: ESCITALOPRAM OXALATE 20 MG TAB PO SCH (07:57)
[2017-05-19] MEDS: CETIRIZINE HCL 10 MG TAB PO SCH (07:57)
[2017-05-19] MEDS: ACYCLOVIR 400 MG TAB PO SCH (07:57)
[2017-05-19] MEDS: SENNA 8.6 MG TAB PO SCH (07:57)
[2017-05-19] MEDS: TRIAMCINOLONE ACET 0.1% ORABASE 5 GM TUBE MT SCH (07:59)
[2017-05-19] MEDS ORDERED: DEXLANSOPRAZOLE 60 MG CAPDR PO SCH (08:00)
[2017-05-19] MEDS: BOOST PLUS VANILLA PO SCH (08:00)
[2017-05-19] MEDS: DRONABINOL 2.5 MG CAP PO SCH ×2 (08:00→11:15)
--- NOTE | 2017-05-19 08:09 | Progress Note ---
Progress Note Date of Service May 19, 2017. Progress Note ID Consult Dicated #[id number] A/P: 1. Neutropenic Fever 2. Influenza A -Continue tamiflu -No signs of infected port, 05/13 blood cultures negative -Pt would like to be d/c home, discussed with primary -Thank you
[2017-05-19] MEDS ORDERED: TMF75 PO (10:18)
--- NOTE | 2017-05-19 10:24 | Discharge Instructions ---
Discharge Instructions Date of Service May 19, 2017. Admission Reason for Admission: Febrile Neutropenia, Influenza Discharge Discharge Diagnosis / Problem: Influenza Discharge Goals Goal(s): Decrease discomfort, Improve function, Increase independence Activity Recommendations Activity Limitations: resume your previous activity . Instructions / Follow-Up Instructions / Follow-Up Mr Reyes, You came in and were found to have neutropenic fever and tested positive for the flu. You were given fluids and prophylaxis IV antibiotics. In addition, we gave you Tamiflu. You have received 3 dose. We would like you to take 7 more doses. Taken twice daily. In addition, we want you to continue your oral antibiotics at home. We feel that recovery from from the flu in your home is a better scenario, but we do advise you to follow up with us in the hospital if you experience troubling symptoms; high fevers, SOB and cough. We also advise you to follow up closely with your PCP and your oncologist. It was a pleasure to get to know you and take care of you. Take care, Dr. Lopes Current Hospital Diet Patient's current hospital diet: Regular Diet Discharge Diet Recommended Diet: Regular Diet Pending Studies Studies pending at discharge: yes List of pending studies: Blood cultures. No growth to date. Medical Emergencies . Who to Call and When: Medical Emergencies: If at any time you feel your situation is an emergency, please call 911 immediately. . Non-Emergent Contact Non-Emergency issues call your: Primary Care Provider, Oncologist . . "Provider Documentation" section prepared by Hung Lopes. . VTE Core Measure Inpt VTE Proph given/why not?: SCD's
[2017-05-19 10:31] VITALS: BP 96/61; PULSE 101; TEMP 37.4; O2SAT 99
--- NOTE | 2017-05-19 11:45 | Discharge Summary ---
Discharge Summary Date of Service May 19, 2017. Discharge Summary Admission Date: May 18, 2017 at 03:55 Discharge Date: May 19, 2017 Discharge Disposition: Home Principal Diagnosis: influenza Immunizations: Have You Had Influenza Vaccine: No History of Tetanus Vaccine?: Unknown History of Pneumococcal: Unknown History of Hepatitis B Vaccine: Unknown Discharge Exam Review of Systems: Constitutional: No fever, No chills, No sweats Respiratory: + cough, No sputum, No wheezing, No shortness of breath Cardiovascular: No chest pain Abdomen: No pain, No nausea, No vomiting, No diarrhea Genitourinary - Female: No dysuria Physical Exam: General Appearance: WD/WN, no apparent distress Respiratory/Chest: lungs clear, normal breath sounds, no respiratory distress, no accessory muscle use Cardiovascular: regular rate, rhythm, no edema, no gallop Neurologic/Psychiatric: alert, normal mood/affect, normal reflexes, oriented x 3 Skin: normal color, warm/dry, no rash Hospital Course 32 yo PMH of B cell lymphoma comes [facility] with neutropenic fever. Patient was found to be positive for flu and was subsequently started on Tamaflu. The patient was on ppx IV abx; vanc and Levaquin. Patient was found to be afebrile for >24 and his WBC improved modestly during hospitalization. It was seen to be better for the patient to recover from the flu in the outpatient as to reduce risk for nosocomial infections. Patient was discharged with instructions to complete tamiflu and to continue PO px abx; Levaquin and Bactrim. SEE problem list for more details of hospitalization; Neutropenic fever -Influenza A + -Tamiflu 75 mg twice a day -Empiric coverage for pneumonia with Levaquin, vancomycin and Zosyn - Acyclovir 800 mg twice a day - Tylenol/Motrin as needed - Neutropenic precautions Chronic pain: - Continue oxycodone every 4 hours as needed Pancytopenia: -Likely secondary to bone marrow suppression from chemotherapy - Blood type and crossed, 1 unit transfused -Monitor CBC B cell Lymphoma - Continue daily Venclexta with chemo regimen - Continue Methadone 15 mg every 8 hours and oxycodone for pain control Neuropathic Pain - Continue home Gabapentin 600mg PO TID Nausea - Continue home Zofran and Marinol for Nausea/ Appetite stimulation Anxiety - Continue home Ativan Opioid-induced constipation - Dulcolax, Docusate, Senna DVT prophylaxis: SCDs No chemical anticoagulation considering thrombocytopenia Full code Resident Physician Supervision Note: I interviewed and examined the patient. Discussed with Dr. Lopes and agree with findings and plan as documented in the note. Any exceptions or clarifications are listed here: None Documented By: Dc Daniel feeling ok ready to go home no further fevers vitals noted nad breathing unlabored no pallor or icterus neutropenic fever due to influenza -improved, stable for home on tamiflu pancytopenia -related to chemo - had 2 units PRBC for anemia portion, ongoing heme/onc follow up stable for home Total Time Spent: Less than 30 minutes This includes examination of the patient, discharge planning, medication reconciliation, and communication with other providers. Discharge Instructions Please refer to the electronic Patient Visit Report (Discharge Instructions) for additional information. Additional Copies To Dorian Franz M.D.
--- NOTE | 2017-05-20 07:57 | INFECT. DISEASE CONSULTATION ---
DATE OF CONSULTATION: 05/19/2017 HISTORY OF PRESENT ILLNESS: This is a 32-year-old gentleman who was admitted to the hospital after he had an episode of fever at home. He does have lymphoma and he is being treated at the hospital of the [facility] with chemotherapy. Because of his fever, he was brought to the hospital. In the ER, his T-max was 38, his white count was 0.1, and his platelets were 59. He was admitted to the hospital for febrile neutropenia and started on broad spectrum antibiotics, consisting of vancomycin and Levaquin. As part of his workup, blood cultures were obtained and are pending. He also had a flu swab, which was positive for influenza A. He was started on Tamiflu. He states he is feeling significantly better. He has not had any additional fevers or chills. He denies any shortness of breath, chest pain, dyspnea on exertion or cough. He has no weight loss. He has no nausea, vomiting, diarrhea or abdominal pain. He has no urinary symptoms. His remaining review of systems is negative. He was admitted in early April and found to have citrobacter bacteremia. He was transferred to [facility] for additional care. He was treated with Rocephin. There was some discussion regarding port removal, but that was decided not to be necessary as his blood cultures rapidly cleared. Here, he had blood cultures negative on the and he states he had blood cultures negative at [facility] as well. He came back to the hospital on the 13 of May for a surveillance blood culture and to date, these are negative as well. He has no pain at his port site. He states that it is functioning without difficulty. PAST MEDICAL HISTORY: He has a past medical history of GERD, lymphoma and a history of liver biopsy. He also has B cell lymphoma, for which he is undergoing treatment at [facility] via the port on the right chest wall. FAMILY HISTORY: Noncontributory. SOCIAL HISTORY: Negative for tobacco use, alcohol use or drug use. He is and lives with his family. He states his son and recently started on Tamiflu prophylaxis yesterday. ALLERGIES: HE HAS ALLERGIES TO ERYTHROMYCIN. MEDICATIONS: Include Dexilant, subQ heparin, Levaquin, vancomycin, Colace, Ativan, Tamiflu, Venclexta, acyclovir, Marinol, Lexapro, Neurontin, Senokot, Zyrtec, dexamethasone, methadone, Tylenol, milk of magnesia, Zofran, Dulcolax, and oxycodone. PHYSICAL EXAMINATION: VITAL SIGNS: He is currently afebrile, T-max was 38 in the ER, pulse 101, respiratory rate 16, blood pressure is 96/61, and oxygen saturation is 99% on room air. GENERAL: He is awake, alert and oriented x3. He is in no acute distress. HEENT: Mucous membranes are moist. Extraocular muscles are intact. HEART: Regular. LUNGS: Clear. ABDOMEN: Soft, nontender, and nondistended. EXTREMITIES: There is no lower extremity edema bilaterally. SKIN: Without rash. Right chest wall port is clean, dry and intact with no surrounding induration, fluctuance, warmth, tenderness or erythema. LABORATORY STUDIES: CBC today reveals a white blood cell count of 0.26, hemoglobin 8.3 and platelets of 70. There is no differential. Chemistry panel reveals a sodium of 137, potassium 4.0, chloride 105, bicarbonate 26, BUN 22, creatinine 1, and glucose 88. Urinalysis is unremarkable. Flu swab was positive for influenza A. Blood cultures are negative to date. Chest x-ray shows a minimal left lower lobe atelectasis, which is unchanged from the 13 of May. His cultures on the are negative to date. ASSESSMENT AND PLAN: Febrile neutropenia likely secondary to influenza A. I did speak with his primary service. The patient is asking to be discharged home today as he is concerned for staying in the hospital and coming down with a nosocomial infection. He certainly can complete a course of Tamiflu at home. I do not see any evidence of ongoing port infection and his recent blood cultures on the are negative. He will complete his course of Tamiflu. Thank you for this consultation.
[2017-05-21] MEDS ORDERED: VANCOMYCIN TROUGH ONE (05:30)
== END 2017-05-19 12:00 | disposition home or self-care (01) | DRG 153 ==
LOC: C.EDB 00:49 → UNDOADMIN 03:55 → C.4E 03:55 → EDBEDREQ 04:04 → ENRESERV 04:09
PROVIDERS: ADMIT Family Medicine; ATTEND Family Medicine
DX: J11.1 Influenza due to unidentified influenza virus with other respiratory manifestations (principal); C83.30 Diffuse large B-cell lymphoma, unspecified site; D61.818 Other pancytopenia; D70.9 Neutropenia, unspecified; Z82.49 Family history of ischemic heart disease and other diseases of the circulatory system; G89.29 Other chronic pain; R11.0 Nausea; F41.9 Anxiety disorder, unspecified; K59.03 Drug induced constipation; T40.2X5A Adverse effect of other opioids, initial encounter

== ENCOUNTER 2017-06-02 18:36 | Inpatient (IN) | payer OTHER ==
[~2017-06-02] VITALS: Ht 185.4 cm; Wt 89.6 kg
[~2017-06-02 18:36] MED LIST changes: +TMF75 PO
[2017-06-02] MEDS ORDERED: SODIUM CHLORIDE 0.9% 1000ML 1,000 ML IV ONE (19:02)
[2017-06-02] MEDS ORDERED: SODIUM CHLORIDE 0.9% 1000ML 1,000 ML IV STA ×2 (19:02→21:07)
--- NOTE | 2017-06-02 19:08 | EMERGENCY ROOM VISIT NOTE ---
History Report prepared by Alie: John Reynolds Under the Supervision of: Dr. Gary George M.D. First contact with patient: 18:56 Chief Complaint: FEVER Stated Complaint: NUTRAPAIC FEVER, POST NASAL DRIP, BODY PAIN History of Present Illness The patient is a 32 year old male who presents to the Emergency Room with complaints of worsening flu-like symptoms which began yesterday. The patient reports that he had a fever yesterday which resolved but recurred this morning. He notes body pain which he feels throughout his entire body for which he is currently on a regimen of acevedo medications. The patient is currently hypotensive and tachycardic with a heart rate of 112. The patient reports that he has been experiencing post-nasal drip, but notes that he has a cat which he is allergic to which may be the cause. Source of History: patient Onset: 1 day ago. Position: other (global) Quality: other (flu-like) Timing: worsening Associated Symptoms: + fevers Note: Associated Symptoms: Body aches and post-nasal drip Review of Systems See HPI for pertinent positives & negatives. A total of 10 systems reviewed and were otherwise negative. Past Medical & Surgical Medical Problems: (1) Anemia (2) GERD (gastroesophageal reflux disease) (3) Hypotension (4) Lymphoma (5) Neutropenic fever (6) Sore throat Surgical Problems: (1) History of liver biopsy Family History Cancer Heart disease Social History Smoking Status: Never Smoker Drug Use: none Marital Status: Housing Status: lives with significant other Occupation Status: employed Current/Historical Medications Scheduled Acyclovir (Zovirax), 800 MG PO BID Cefpodoxime Proxetil (Cefpodoxime Proxetil), 1 TAB PO BID Cetirizine Hcl (Cetirizine Hcl), 1 TAB PO DAILY Dexlansoprazole (Dexilant), 60 MG PO QAM Docusate Sodium (Docusate Sodium), 100 MG PO QAM Docusate Sodium (Docusate Sodium), 200 MG PO HS Dronabinol (Marinol), 5 MG PO TIDM Escitalopram Oxalate (Lexapro), 20 MG PO QAM Gabapentin (Gabapentin), 600 MG PO TID Levofloxacin (Levaquin), 500 MG PO DAILY Lorazepam (Ativan), 1 MG PO HS Methadone Hcl (Dolophine), 15 MG PO Q8 Oseltamivir Phosphate (Tamiflu), 75 MG PO BID@0600,1800 Phenol-Sodium Borate (Ulcerease), 15 ML PO Q6H Sennosides (Senna-Lax), 2 TABS PO AMHS Sulfa/Trimethoprim (Bactrim Ds 800MG/160MG), 1 TAB PO 3XWK Triamcinolone Acet (Triamcinolone Acetonide), 1 APPLN MT TID Venetoclax (Venclexta), 12 TABS PO DAILY@1500 [Magic Mouth Wash], 5 ML PO Q4H Scheduled PRN Bisacodyl (Bisacodyl), 2 TAB PO HS PRN for Constipation Dexlansoprazole (Dexilant), 30 MG PO HS PRN for gerd Oxycodone Immediate Rel Tab (Roxicodone Ir), 10-15 MG PO Q4 PRN for Pain Allergies Coded Allergies: Erythromycin (Verified Adverse Reaction, Intermediate, GI SYMPTOMS, ) Prochlorperazine (Verified Adverse Reaction, Unknown, change in mental status, 05/18/17) Physical Exam Vital Signs Date Time Temp Pulse Resp B/P (MAP) Pulse Ox O2 Delivery O2 Flow Rate FiO2 06/02/17 23:03 84 18 111/59 100 Room Air 06/02/17 21:52 85 18 100 Room Air 06/02/17 20:40 86 06/02/17 20:18 92 18 102/55 99 Room Air 06/02/17 19:43 99 Room Air 06/02/17 18:49 37.8 106 18 91/52 98 Physical Exam GENERAL: Cachectic in appearance. Male. HEAD: Normocephalic atraumatic EYES: Ocular movements intact pupils equal and react to light OROPHARYNX mucous membranes are moist no exudates present no erythema or edema present NECK: Supple no nuchal rigidity CHEST: Good equal expansion. Port in place in right chest wall. LUNGS: Clear and equal to auscultation CARDIAC: Normal S1 and S2 ABDOMEN: Soft nontender no guarding BACK: No CVA tenderness EXTREMITIES: No pain upon palpation normal muscle strength in all groups no clubbing cyanosis or edema NEURO: Patient is following commands and answering questions appropriately. Alert and oriented x3 Cranial Nerves 2-12 grossly intact Medical Decision & Procedures ER Provider Diagnostic Interpretation: Radiology results as stated below per my review and radiologist interpretation: CHEST ONE VIEW PORTABLE CLINICAL HISTORY: Sepsis dyspnea COMPARISON STUDY: 05/18/2017 FINDINGS: Progressive infiltrative process left lung base. Lungs otherwise appear clear. No evidence for cardiac enlargement. Central catheter in superior vena cava. IMPRESSION: Progressive and/or developing infiltrative process left lung base. The above report was generated using voice recognition software. It may contain grammatical, syntax or spelling errors. Electronically signed by: Ivan Moreno M.D. 06/02/2017 7:25 PM Dictated Date/Time: 06/02/2017 7:24 PM Laboratory Results Test 06/02/17 18:46 06/02/17 19:17 Prothrombin Time 10.1 SECONDS (9.0-12.0) Prothromb Time International Ratio 1.0 (0.9-1.1) Activated Partial Thromboplast Time 34.1 SECONDS (21.0-31.0) Partial Thromboplastin Ratio 1.3 Urine Color YELLOW Urine Appearance CLEAR (CLEAR) Urine pH 7.0 (4.5-7.5) Urine Specific [place] 1.012 (1.000-1.030) Urine Protein NEG (NEG) Urine Glucose (UA) NEG (NEG) Urine Ketones NEG (NEG) Urine Occult Blood NEG (NEG) Urine Nitrite NEG (NEG) Urine Bilirubin NEG (NEG) Urine Urobilinogen NEG (NEG) Urine Leukocyte Esterase NEG (NEG) Urine WBC (Auto) 1-5 /hpf (0-5) Urine RBC (Auto) 0-4 /hpf (0-4) Urine Hyaline Casts (Auto) 1-5 /lpf (0-5) Urine Epithelial Cells (Auto) 5-10 /lpf (0-5) Urine Bacteria (Auto) NEG (NEG) Influenza Type A Antigen POS for Influ A (NEG) Influenza Type B Antigen Neg for Influ B (NEG) Labs reviewed by ED physician. Medications Administered Medications (Trade) Dose Ordered Sig/Sidney Route Start Time Stop Time Status Last Admin Dose Admin Sodium Chloride 1,000 ml @ 999 mls/hr Q1H1M ONCE IV 06/02/17 19:02 06/02/17 20:02 DC 06/02/17 19:59 999 MLS/HR Sodium Chloride 1,000 ml @ 999 mls/hr Q1H1M STAT IV 06/02/17 19:02 06/02/17 20:02 DC 06/02/17 19:58 999 MLS/HR Sodium Chloride 1,000 ml @ 999 mls/hr Q1H1M STAT IV 06/02/17 21:07 06/02/17 22:07 DC 06/02/17 21:17 999 MLS/HR Cefepime HCl 1000 mg/Dextrose 111 ml @ 200 mls/hr NOW STAT IV 06/02/17 21:07 06/02/17 21:40 DC 06/02/17 22:52 200 MLS/HR Levofloxacin (Levaquin / D5W) 750 mg NOW STAT IV 06/02/17 21:07 06/02/17 21:09 DC 06/02/17 21:17 750 MG Vancomycin HCl (Vancomycin 1gm/ 270ml Nss) 1 gm NOW STAT IV 06/02/17 21:07 06/02/17 21:09 DC 06/02/17 23:01 1 GM Oseltamivir Phosphate (Tamiflu Cap) 75 mg NOW STAT PO 06/02/17 21:12 06/02/17 21:13 DC 06/02/17 21:17 75 MG Acetaminophen (Tylenol Tab) 650 mg Q4H PRN PO 06/02/17 23:00 07/02/17 22:59 06/03/17 14:35 650 MG ECG Indication: tachycardia Rate (beats per minute): 104 Rhythm: sinus tachycardia Findings: other (Normal [place], No ST Depressions or Elevations. ) Change: Patient's electrocardiogram per my interpretation. ED Course 1854: Past medical records reviewed. The patient was evaluated in room C12. A complete history and physical examination was performed. 1901: Ordered Sodium Chloride 1000 ml @ 999 mls/hr IV and Sodium Chloride 1000 ml @ 999 mls/hr IV 2106: Ordered Vancomycin HCL 1 gm IV, Levofloxacin 750 mg IV, Cefepime HCl 111 mL @ 200 mL/hr IV, Ordered Sodium Chloride 1000 mL @ 999 mL/hr IV. 2111: Ordered Tamiflu 75 mg PO. 2221: I discussed the case with Dr. Reina - [facility] [place] [facility] [place]. He will evaluate the patient for further treatment. Medical Decision Differential diagnosis: Etiologies such as viral syndrome, otitis, pharyngitis, pneumonia, influenza, meningitis, urinary tract infection, sepsis, bacteremia, as well as others were entertained. This is a 32-year-old male who is on chemotherapy who presents emergency department complaining of fever. The patient also has a postnasal drip. He is again positive for the flu and his white blood cell count is extremely low. He is also hypotensive therefore he was given 30 mL's per kilogram of fluid. He was also pancultured and started on antibiotics. I did discuss his case with the hospitalist service who agreed to admit the patient. Patient was in agreement with the treatment plan. Consults Time Called: 2219 Consulting Physician: Dr. Nuno LAUREN Hospitalist Returned Call: [phone] I discussed the case with Dr. Nuno LAUREN Hospitalist. He will evaluate the patient for further treatment. Impression Primary Impression: Fever Additional Impressions: Influenza Neutropenia Scribe Attestation The scribe's documentation has been prepared under my direction and personally reviewed by me in its entirety. I confirm that the note above accurately reflects all work, treatment, procedures, and medical decision making performed by me. Departure Information Dispostion Being Evaluated By Hospitalist Referrals Dorian Franz M.D. (PCP) Patient Instructions My [facility] Problem Qualifiers Primary Impression: Fever Fever type: unspecified Qualified Codes: R50.9 - Fever, unspecified Additional Impressions: Neutropenia Neutropenia type: secondary to cancer chemotherapy Qualified Codes: D70.1 - Agranulocytosis secondary to cancer chemotherapy; T45.1X5A - Adverse effect of antineoplastic and immunosuppressive drugs, initial encounter
--- NOTE | 2017-06-02 19:26 | DIAGNOSTIC IMAGING REPORT ---
CHEST ONE VIEW PORTABLE CLINICAL HISTORY: Sepsis dyspnea COMPARISON STUDY: 05/18/2017 FINDINGS: Progressive infiltrative process left lung base. Lungs otherwise appear clear. No evidence for cardiac enlargement. Central catheter in superior vena cava. IMPRESSION: Progressive and/or developing infiltrative process left lung base. The above report was generated using voice recognition software. It may contain grammatical, syntax or spelling errors. Electronically signed by: Ivan Moreno M.D. 06/02/2017 7:25 PM Dictated Date/Time: 06/02/2017 7:24 PM
[2017-06-02] MEDS ORDERED: LEVO1TAB33 PO (19:27)
[2017-06-02 20:09] LABS: ALBUMIN 2.9 gm/dl (3.4-5.0); CALCIUM 8.9 mg/dl (8.5-10.1); CREATININE 1.36 mg/dl (0.60-1.40); POTASSIUM 4.5 mmol/L (3.5-5.1)
[2017-06-02 20:16] LABS: PTT PATIENT 34.1 SECONDS (21.0-31.0)
[2017-06-02 20:28] LABS: HEMATOCRIT 25.2 % (42-52); HEMOGLOBIN 8.7 g/dL (14.0-18.0); MEAN CELL VOLUME 89.4 fL (80-100); MEAN CORPUSCULAR HEMOGLOBIN 30.9 pg (25-34); MEAN CORPUSCULAR HGB CONC 34.5 g/dl (32-36); MEAN PLATELET VOLUME 10.1 fL (7.4-10.4); PLATELET COUNT 33 K/uL (130-400); RED CELL DISTRIBUTION WIDTH CV 15.8 % (11.5-14.5); RED CELL DISTRIBUTION WIDTH SD 50.9 fL (36.4-46.3); WHITE BLOOD COUNT 0.04 K/uL (4.8-10.8)
[2017-06-02 20:39] LABS: INFLUENZA B ANTIGEN Neg for Influ B (NEG)
[2017-06-02] MEDS ORDERED: LEVAQUIN 750MG / 150ML D5W IV STA (21:07)
[2017-06-02] MEDS ORDERED: CEFEPIME IV 1,000 MG in DEXTROSE 5% 100ML 100 ML IV STA (21:07)
[2017-06-02] MEDS ORDERED: VANCOMYCIN 1GM/270ML NSS IV STA (21:07)
[2017-06-02] MEDS ORDERED: OSELTAMIVIR PHOSPHATE 75 MG CAP PO STA (21:12)
[2017-06-02] MEDS ORDERED: VANCOMYCIN INJ 1,000 MG in SODIUM CHLORIDE 0.9% 250ML 250 ML IV STA (22:55)
[2017-06-02] MEDS ORDERED: POLYETHYLENE (MIRALAX) 17 GM PACK PO PRN (23:00)
[2017-06-02] MEDS ORDERED: MAGNESIUM HYDROXIDE SUSP 30 ML UDC PO PRN (23:00)
[2017-06-02] MEDS ORDERED: ALUMINUM/MAGNESIUM/SIMETH (MAALOX MAX) 30 ML UDC PO PRN (23:00)
[2017-06-02] MEDS ORDERED: ONDANSETRON INJ 2 MG/ML 2 ML VIAL IV PRN (23:00)
[2017-06-03] VITALS (10 sets, daily range): BP systolic 77–100; BP diastolic 47–63; PULSE 79–100; TEMP 36.5–37.2; O2SAT 97–100; BMI 26.7
[2017-06-03] MEDS: ACETAMINOPHEN 325 MG TAB PO PRN ×2 (00:53→14:35)
[2017-06-03] MEDS ORDERED: NURSING DECISION MEDICATION ORDER SCH (01:30)
--- NOTE | 2017-06-03 03:14 | History and Physical ---
History & Physical Date & Time of Service: Jun 02, 2017 at 22:51 Chief Complaint: [place] Fever, Post Nasal Drip, Body Pain Primary Care Physician: Dorian Franz M.D. History of Present Illness Source: patient, family, hospital records 32-year-old male with a past medical history of B-cell lymphoma on chemotherapy with POCH-R (last chemo treatment: May 24 ) plus Venclexta( 1200mg daily) presenting with neutropenic fever. He is taking had Neulasta last dose on 05/31. Patient reports productive cough, rhinorrhea x 3 days. As of last night, he reports progressive generalized malaise, bodyache,temperature 100- 100.4 Headache, nausea.He spoke to [facility] oncology today and was instructed to go into Emergency Dept for evaluation. no cp ,sob, abdominal pain, n/v, diarrhea. Patient has had multiple admissions for neutropenic fever in the past. He was last admitted May 19 for Febrile Neutropenia, found to be positive for Influenza A along with L basilar opacities on CXR, CT. He was treated empirically for pneumonia with broadspectrum antibiotics and sent home on Levaquin and Bactrim. Dr. Mavis Sosa at [facility] Oncology as well Dr. Craig manages him. Past Medical/Surgical History Medical Problems: (1) GERD (gastroesophageal reflux disease) Status: Chronic (2) Lymphoma Status: Chronic Surgical Problems: (1) History of liver biopsy Status: Resolved Family History Cancer Heart disease Social History Smoking Status: Never Smoker Drug Use: none Marital Status: Housing status: lives with family Occupational Status: employed Immunizations History of Influenza Vaccine: No History of Tetanus Vaccine?: Unknown History of Pneumococcal: Unknown History of Hepatitis B Vaccine: Unknown Multi-Drug Resistant Organisms History of MDRO: No Allergies Coded Allergies: Erythromycin (Verified Adverse Reaction, Intermediate, GI SYMPTOMS, ) Prochlorperazine (Verified Adverse Reaction, Unknown, change in mental status, 05/18/17) Home Medications Scheduled Acyclovir (Zovirax), 800 MG PO BID Cefpodoxime Proxetil (Cefpodoxime Proxetil), 1 TAB PO BID Cetirizine Hcl (Cetirizine Hcl), 1 TAB PO DAILY Dexlansoprazole (Dexilant), 60 MG PO QAM Docusate Sodium (Docusate Sodium), 100 MG PO QAM Docusate Sodium (Docusate Sodium), 200 MG PO HS Dronabinol (Marinol), 5 MG PO TIDM Escitalopram Oxalate (Lexapro), 20 MG PO QAM Gabapentin (Gabapentin), 600 MG PO TID Levofloxacin (Levaquin), 500 MG PO DAILY Lorazepam (Ativan), 1 MG PO HS Methadone Hcl (Dolophine), 15 MG PO Q8 Oseltamivir Phosphate (Tamiflu), 75 MG PO BID@0600,1800 Phenol-Sodium Borate (Ulcerease), 15 ML PO Q6H Sennosides (Senna-Lax), 2 TABS PO AMHS Sulfa/Trimethoprim (Bactrim Ds 800MG/160MG), 1 TAB PO 3XWK Triamcinolone Acet (Triamcinolone Acetonide), 1 APPLN MT TID Venetoclax (Venclexta), 12 TABS PO DAILY@1500 [Magic Mouth Wash], 5 ML PO Q4H Scheduled PRN Bisacodyl (Bisacodyl), 2 TAB PO HS PRN for Constipation Dexlansoprazole (Dexilant), 30 MG PO HS PRN for gerd Oxycodone Immediate Rel Tab (Roxicodone Ir), 10-15 MG PO Q4 PRN for Pain Review of Systems REVIEW OF SYSTEMS: CONSTITUTIONAL: As per HPI. HEENT: No diplopia or blurred vision. CARDIOVASCULAR: No chest pain, palpitation, presyncope, syncope RESPIRATORY: +cough, No shortness of breath, PND or orthopnea. GASTROINTESTINAL: No nausea, vomiting or diarrhea. GENITOURINARY: No dysuria, frequency or urgency. NEUROLOGIC: No paresthesias, fasciculations, seizures or weakness. ENDOCRINE: No heat or cold intolerance, polyuria or polydipsia. Physical Exam Vital Signs Date Time Temp Pulse Resp B/P (MAP) Pulse Ox O2 Delivery O2 Flow Rate FiO2 06/02/17 21:52 85 18 100 Room Air 06/02/17 20:40 86 06/02/17 20:18 92 18 102/55 99 Room Air 06/02/17 19:43 99 Room Air 06/02/17 18:49 37.8 106 18 91/52 98 GENERAL: alert, , no distress, non-toxic EYE EXAM: conjunctival pallor, PERRL and EOM's grossly intact OROPHARYNX: no exudate, no erythema, lips, buccal mucosa, and tongue normal and mucous membranes are moist NECK: supple, no nuchal rigidity, no adenopathy, non-tender LUNGS: Clear to auscultation. Normal chest wall mechanics HEART: no murmurs, S1 normal and S2 normal ABDOMEN: abdomen soft, Generalized left sided tenderness ( chronic), normo- active bowel sounds, no masses, no rebound or guarding. BACK: Back is symmetrical on inspection and there is no deformity SKIN: no rashes and no bruising UPPER EXTREMITIES: pallor of palmar creases LOWER EXTREMITIES: No pitting edema. NEURO EXAM: Normal sensorium, cranial nerves II-XII [grossly] intact, normal speech, no [gross] weakness of arms, no [gross] weakness of legs. [No drift. Finger to nose intact. Gross sensation intact.] Diagnostics Laboratory Results Results Past 24 Hours Test 06/02/17 18:46 06/02/17 19:17 Range/Units White Blood Count 0.04 4.8-10.8 K/uL Red Blood Count 2.82 4.7-6.1 M/uL Hemoglobin 8.7 14.0-18.0 g/dL Hematocrit 25.2 42-52 % Mean Corpuscular Volume 89.4 80-100 fL Mean Corpuscular Hemoglobin 30.9 25-34 pg Mean Corpuscular Hemoglobin Concent 34.5 32-36 g/dl RDW Standard Deviation 50.9 36.4-46.3 fL RDW Coefficient of Variation 15.8 11.5-14.5 % Platelet Count 33 130-400 K/uL Mean Platelet Volume 10.1 7.4-10.4 fL Prothrombin Time 10.1 9.0-12.0 SECONDS Prothromb Time International Ratio 1.0 0.9-1.1 Activated Partial Thromboplast Time 34.1 21.0-31.0 SECONDS Partial Thromboplastin Ratio 1.3 Sodium Level 133 136-145 mmol/L Potassium Level 4.5 3.5-5.1 mmol/L Chloride Level 96 98-107 mmol/L Carbon Dioxide Level 27 21-32 mmol/L Anion Gap 10.0 3-11 mmol/L Blood Urea Nitrogen 39 7-18 mg/dl Creatinine 1.36 0.60-1.40 mg/dl Est Creatinine Clear Calc Drug Dose 86.5 ml/min Estimated GFR () 78.1 Estimated GFR (Non- 67.4 BUN/Creatinine Ratio 29.0 10-20 Random Glucose 120 70-99 mg/dl Calcium Level 8.9 8.5-10.1 mg/dl Total Bilirubin 0.6 0.2-1 mg/dl Aspartate Amino Transf (AST/SGOT) 15 15-37 U/L Alanine Aminotransferase (ALT/SGPT) 29 12-78 U/L Alkaline Phosphatase 82 45-117 U/L Total Protein 6.0 6.4-8.2 gm/dl Albumin 2.9 3.4-5.0 gm/dl Globulin 3.1 2.5-4.0 gm/dl Albumin/Globulin Ratio 0.9 0.9-2 Urine Color YELLOW Urine Appearance CLEAR CLEAR Urine pH 7.0 4.5-7.5 Urine Specific [place] 1.012 1.000-1.030 Urine Protein NEG NEG Urine Glucose (UA) NEG NEG Urine Ketones NEG NEG Urine Occult Blood NEG NEG Urine Nitrite NEG NEG Urine Bilirubin NEG NEG Urine Urobilinogen NEG NEG Urine Leukocyte Esterase NEG NEG Urine WBC (Auto) 1-5 0-5 /hpf Urine RBC (Auto) 0-4 0-4 /hpf Urine Hyaline Casts (Auto) 1-5 0-5 /lpf Urine Epithelial Cells (Auto) 5-10 0-5 /lpf Urine Bacteria (Auto) NEG NEG Influenza Type A Antigen POS for Influ A NEG Influenza Type B Antigen Neg for Influ B NEG Microbiology Results 06/02/17 Blood Culture, Received Pending 06/02/17 Blood Culture, Received Pending Diagnostic Radiology CHEST ONE VIEW PORTABLE CLINICAL HISTORY: Sepsis dyspnea COMPARISON STUDY: 05/18/2017 FINDINGS: Progressive infiltrative process left lung base. Lungs otherwise appear clear. No evidence for cardiac enlargement. Central catheter in superior vena cava. IMPRESSION: Progressive and/or developing infiltrative process left lung base. Impression Assessment and Plan 32-year-old male with a past medical history of B-cell lymphoma on chemotherapy with POCH-R, Venclexta in addition to Neulasta, hiistory of multiple admissions for neutropenic fever, presenting with neutropenic fever in the setting of cough bodyache, found to have positive Influenza swab in addition to L basilar infiltrate on CXR Neutropenic Fever in the setting of suspected Pneumonia, Influenza - Temperature of 37.[address] of .04 on arrival - L Basilar infiltrates suspicious for Pneumonia - Positive Flu Swab, however Patient tested positive for Flu swab during previous admission (05/18), perhaps immunosuppression secondary to chemo prevented clearing of virus - Start Tamiflu , Start empiric coverage Vancomycin, Cefepime Levaquin - Blood cx's pending Neuropathic Pain - Continue home Gabapentin 600mg PO TID History of Lymphoma s/p recent chemotherapy POCH-R (last chemo treatment: May 24 ) Venclexta( 1200mg daily) likely contributor to neutropenia follows with [facility] Oncology for management, [facility] Oncology ( labwork only) Anemia within baseline range Hg 8.7 on arrival likely secondary to chemotherapy, no evidence of bleed Continue to monitor Hyponatremia -mild, Na 133 -Continue to monitor DVT Prophylaxis - SCD;s Disposition - Admit to Med/Surg Code Status - Full Resuscitation Attending addendum: I have physically seen this patient, have supervised the medical residents activities, and agree with the H&P unless as otherwise noted. Assessment and Plan: Neutropenic fever/pneumonia/influenza A-- Vancomycin IV per pharmacokinetic monitoring Cefepime 1 g IV every 8 hours Levofloxacin 500 mg IV every 24 hours Duonebs every 4 hours while awake and every 2 hours when necessary. Pulmicort Respules 0.5 mg inhaled twice daily Guaifenesin extended release 600 mg by mouth twice a day Nasal cannula oxygen titrate to keep pulse ox greater than or equal to 92% Sputum Gram stain and culture Tamiflu 75 mg p.o. twice daily. Of note, this is the second time patient tested positive influenza A, and in both instances he has been neutropenic at the time Level of Care Med/Surg Advanced Directives Existing Advance Directive: No Existing Living Will: No Existing Power of Senior Applications Architect: No Resuscitation Status FULL RESUSCITATION VTE Prophylaxis Given or contraindicated: SCD's Social Service Consult Cancer Patient Under [place] Note Total Time: Critical Care 30 - 74 minutes Resident Tracking Resident Involvement: Resident Care Provided Care Provided: Adult Hospital Medicine
[2017-06-03 06:45] LABS: ALBUMIN 2.4 gm/dl (3.4-5.0); CALCIUM 9.2 mg/dl (8.5-10.1); CREATININE 1.22 mg/dl (0.60-1.40); POTASSIUM 4.7 mmol/L (3.5-5.1)
[2017-06-03 06:48] LABS: TOTAL PROTEIN 5.3 gm/dl (6.4-8.2)
[2017-06-03 07:02] LABS: HEMATOCRIT 22.3 % (42-52); HEMOGLOBIN 7.7 g/dL (14.0-18.0); MEAN CELL VOLUME 88.5 fL (80-100); MEAN CORPUSCULAR HEMOGLOBIN 30.6 pg (25-34); MEAN CORPUSCULAR HGB CONC 34.5 g/dl (32-36); RED CELL DISTRIBUTION WIDTH CV 15.6 % (11.5-14.5); RED CELL DISTRIBUTION WIDTH SD 50.7 fL (36.4-46.3); WHITE BLOOD COUNT 0.03 K/uL (4.8-10.8)
[2017-06-03 07:44] LABS: MEAN PLATELET VOLUME 8.7 fL (7.4-10.4); PLATELET COUNT 20 K/uL (130-400)
[2017-06-03] MEDS ORDERED: PIPERACILL/TAZOBAC CONSULT ACTIVE PRN (09:15)
[2017-06-03] MEDS ORDERED: VANCOMYCIN CONSULT ACTIVE PRN (09:30)
[2017-06-03] MEDS: OSELTAMIVIR PHOSPHATE 75 MG CAP PO SCH ×2 (09:38→21:00)
[2017-06-03] MEDS: GABAPENTIN 600 MG TAB PO SCH ×3 (09:38→21:00)
[2017-06-03] MEDS ORDERED: PANTOprazole SOD 40 MG TAB PO PRN (09:45)
[2017-06-03] MEDS ORDERED: OXYCODONE HCL IR 5 MG TAB (IMMEDIATE RELEASE) PO PRN (09:45)
[2017-06-03] MEDS ORDERED: SODIUM CHLORIDE 0.9% 500ML 500 ML IV ONE (09:45)
--- NOTE | 2017-06-03 10:09 | Pharmacy Progress Note ---
Pharmacy Abx Initial Consult Date of Service Jun 03, 2017. Pharmacy Dosing Scope Date of Consult: 06/03/17 Consultation requested by: Dr. Hanna Pharmacy is consulted to initiate vancomycin IV dosing therapy, order appropriate labs and adjust drug dose/frequency. Subjective The patient is a 32 year old male admitted on Jun 02, 2017 at 23:09. Objective Height (Feet): 6 Height (Inches): 1.00 Weight (Kilograms): 91.900 Vital Signs (Past 12Hrs) Vital Signs Past 12 Hours Date Time Temp Pulse Resp B/P (MAP) Pulse Ox O2 Delivery O2 Flow Rate FiO2 06/03/17 09:43 96/63 (74) 06/03/17 08:09 36.9 83 18 87/56 (66) 98 Room Air 77/47 (57) 06/03/17 01:24 37.2 100 20 100/63 100 Room Air 06/03/17 00:59 37.2 100 20 100/63 (75) 97 Room Air 06/02/17 23:03 84 18 111/59 100 Room Air Lab Results (24Hrs) Laboratory Tests (24 Hours) Test 06/03/17 05:20 White Blood Count 0.03 K/uL (4.8-10.8) *L Micro Results Date/Time Source Procedure Growth Status 06/02/17 20:10 Blood Blood Culture Pending Received 06/02/17 19:45 Blood Blood Culture Pending Received Risk Factors for Resistance * Hospitalization for 48 hours or more within the past 90 days * Immunocompromised (chemotherapy) * 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 Plan vancomycin for treatment of neutropenic fever Vancomycin IV * Loading dose: 2250 mg (25 mg/kg) * Maintenance dose: 1500 mg IV (16 mg/kg) every 18 hours (previous patient specific data suggests patient tolerates this regimen) * Goal trough level for neutropenic fever : 15 to 20 mcg/mL * Trough ordered for 06/05/17 Pharmacy will continue to follow and will adjust dose/frequency as necessary. Thank you.
[2017-06-03] MEDS ORDERED: VANCOMYCIN INJ 2,250 MG in SODIUM CHLORIDE 0.9% 500ML 500 ML IV ONE (10:30)
[2017-06-03] MEDS: CEFEPIME IV 2,000 MG in SYRINGE 7.5 ML IV SCH ×2 (10:44→17:28)
--- NOTE | 2017-06-03 11:17 | Progress Note ---
Progress Note Date of Service Jun 03, 2017. Progress Note Id Consult Dictated #[id number] A/P: 1. Neutropenic Fever 2. Influenza A -continue abx, followcultures -continue tamiflu -will follow, thank you
[2017-06-03] MEDS: METHADONE HCL 5 MG TAB PO SCH ×3 (11:45→23:29)
[2017-06-03] MEDS ORDERED: SODIUM CHLORIDE 0.9% 250ML 250 ML IV SCH (11:45)
--- NOTE | 2017-06-03 12:29 | INFECT. DISEASE CONSULTATION ---
DATE OF CONSULTATION: 06/03/2017 HISTORY OF PRESENT ILLNESS: This is a 32-year-old gentleman who has a history of B cell lymphoma who received chemotherapy at the [facility]. His last chemotherapy was from May 24 to May 29. He tolerated this well. He did have a Neulasta injection on the as he does normally have neutropenia after his chemotherapy. He was feeling well at home until yesterday where he developed fevers and chills. He also had associated generalized myalgias and fatigue. He presented to the hospital and his flu swab was positive for influenza A. He did have a positive flu swab in April and was briefly hospitalized at that time and was treated for influenza. He did have a chest x-ray in the Emergency Room which showed a left lower lobe infiltrate which was similar to previous. He is coughing and states it is intermittently productive. He did have a temperature of 37.8 upon arrival to the Emergency Room, but has otherwise been afebrile. He is neutropenic and his total white blood cell count today is 0.03. No differential was performed. He had received Tamiflu in the ER and was placed on vancomycin and cefepime empirically. He is tolerating antibiotics well. He continues to complain of generalized fatigue and some myalgias, mildly improved today. His cough continues. He denies any chest pain. He denies any nausea, vomiting or diarrhea. He has no urinary complaints. He does have a right-sided port which is clean, dry and intact. This was a previously infected and he did receive a course of antibiotics for this. His remaining review of systems is unremarkable. PAST MEDICAL HISTORY: Significant for GERD, B cell lymphoma on chemotherapy, and a history of liver biopsy. He also has a right chest wall port. FAMILY HISTORY: Noncontributory. SOCIAL HISTORY: Negative for tobacco use, alcohol use or drug use. ALLERGIES: ERYTHROMYCIN. MEDICATIONS: Include vancomycin, methadone, cefepime, Roxicodone, Protonix, Tamiflu, Neurontin, subQ heparin, Tylenol, Maalox, milk of magnesia, MiraLax and Zofran. PHYSICAL EXAMINATION: VITAL SIGNS: He is currently afebrile, pulse 83, respiratory rate 18, blood pressure 96/63 and oxygen saturation is 97-100% on room air. GENERAL: He is awake, alert and oriented x3; he is in no acute distress. HEENT: Mucous membranes are moist. Extraocular muscles are intact. SKIN: Without rash. HEART: Regular and tachycardic on my examination. LUNGS: Clear bilaterally. ABDOMEN: Soft. EXTREMITIES: There is no lower extremity edema. Port is clean, dry and intact. LABORATORY STUDIES: Flu swab was positive for influenza A. CBC today reveals a white blood cell count of 0.03, platelets were 20. Chemistry panel reveals a sodium of 137, potassium 4.7, chloride 102, bicarbonate 25, BUN 34, creatinine 1.2, glucose is 95. LFTs are within normal limits. Urinalysis is unremarkable. Micro blood cultures are pending. IMAGING DATA: Chest x-ray showed left basilar infiltrate. ASSESSMENT AND PLAN: 1. Influenza A. 2. Neutropenic fever. At this time, he will be continued on broad spectrum antibiotics and Tamiflu. He did receive Neupogen within the past several days. We will follow along with you. Thank you for this consultation.
[2017-06-03] MEDS ORDERED: METHADONE HCL 5 MG TAB PO SCH (14:00)
[2017-06-03] MEDS ORDERED: PIPERACILL/TAZOBAC IV 3.375 GM in DEXTROSE 5% 100ML 100 ML IV SCH (14:00)
[2017-06-03] MEDS ORDERED: BISACODYL 5 MG TABEC PO PRN (15:00)
--- NOTE | 2017-06-03 15:11 | ECHOCARDIOGRAM REPORT ---
*NOTICE TO RECEIVING DEMOCRAT AGENCY This information is strictly Confidential and protected under [place] law. [place] law prohibits you from making any further disclosure of this information unless further disclosure is expressly permitted by the written consent of the person to whom it pertains or is authorized by law. A general authorization for the release of medical or other information is not sufficient for this purpose. Hospital accepts no responsibility if the information is made available to any other person, INCLUDING THE PATIENT. Interpretation Summary * Name: ADALGISA HOWELL Study Date: 06/03/2017 10:10 AM BP: 96/63 mmHg * Patient Location: 4E\S\E419\S\1 HR: 83 * : 1985 (M/d/yyyy) Gender: Male Height: 73 in * Age: 32 yrs Ethnicity: CA Weight: 202 lb * Ordering Physician: Michael Hanna * Referring Physician: Self, Referred * Performed By: Kimmie Alonzo RDCS * * Reason For Study: HYPOTENSION, B-CELL LYMPHOMA, ANTHRACCYLINE EXPOSURE * BSA: 2.2 m2 * -- Conclusions -- * 1. Normal LV size. Normal LV wall thickness. * 2. Normal LV systolic function. LVEF 50-55%. No regional wall motion abnormalities. * 3. Normal RV size and function. * 4. No significant valvular pathology. * 5. Compared with prior study on 05/18/2015: No significant change Procedure Details * A complete two-dimensional transthoracic echocardiogram was performed (2D, M-mode, Doppler and color flow Doppler). Left Ventricle * The left ventricle is grossly normal size. * There is normal left ventricular wall thickness. * Ejection Fraction = 50-55%. Right Ventricle * The right ventricle is grossly normal size. * The right ventricular systolic function is normal as assessed by tricuspid annular plane systolic excursion (TAPSE) (normal >1.5 cm). Atria * The left atrial size is normal. * Right atrial size is normal. * No ASD detected; PFO is not assessed. Mitral Valve * The mitral valve is grossly normal. * There is no mitral valve stenosis. * There is trace mitral regurgitation. Tricuspid Valve * There is trace tricuspid regurgitation. Aortic Valve * The aortic valve opens well. * The aortic valve is trileaflet. * No hemodynamically significant valvular aortic stenosis. * There is no significant aortic regurgitation. Pulmonic Valve * The pulmonary valve is inadequately visualized, but the Doppler data is adequate for interpretation. * There is no pulmonic valvular stenosis. * Trace pulmonic valvular regurgitation. Great Vessels * The aortic root and proximal ascending aorta are normal sized. Pericardium/Pleural * There is no pericardial effusion. Great Vessels * Normal inferior vena cava size and collapsability with sniff indicates a normal right atrial pressure of 3 mmHg MMode 2D Measurements and Calculations IVSd 1.3 cm IVSs 1.5 cm LVIDd 5.0 cm LVIDs 3.6 cm LVPWd 1.1 cm LVPWs 1.3 cm IVS/LVPW 1.2 FS 28.4 % EDV(Teich) 118.7 ml ESV(Teich) 54.0 ml EF(Teich) 54.5 % EDV(cubed) 125.7 ml ESV(cubed) 46.2 ml EF(cubed) 63.2 % % IVS thick 16.4 % % LVPW thick 18.8 % LV mass(C)d 229.2 grams LV mass(C)dI 106.0 grams/m\S\2 LV mass(C)s 176.5 grams LV mass(C)sI 81.7 grams/m\S\2 SV(Teich) 64.7 ml SI(Teich) 30.0 ml/m\S\2 SV(cubed) 79.5 ml SI(cubed) 36.8 ml/m\S\2 Ao root diam 3.6 cm Ao root area 10.1 cm\S\2 LA dimension 4.0 cm LA/Ao 1.1 LVAd ap4 31.0 cm\S\2 LVLd ap4 9.2 cm EDV(MOD-sp4) 91.6 ml EDV(sp4-el) 88.8 ml LVAs ap4 18.7 cm\S\2 LVLs ap4 7.5 cm ESV(MOD-sp4) 45.4 ml ESV(sp4-el) 39.4 ml EF(MOD-sp4) 50.4 % EF(sp4-el) 55.6 % LVAd ap2 29.0 cm\S\2 LVLd ap2 8.5 cm EDV(MOD-sp2) 81.4 ml EDV(sp2-el) 84.0 ml LVAs ap2 19.6 cm\S\2 LVLs ap2 7.7 cm ESV(MOD-sp2) 43.2 ml ESV(sp2-el) 42.1 ml EF(MOD-sp2) 47.0 % EF(sp2-el) 50.0 % LVLd %diff -8.08 % EDV(MOD-bp) 86.6 ml LVLs %diff 2.8 % ESV(MOD-bp) 44.3 ml EF(MOD-bp) 48.8 % SV(MOD-sp4) 46.1 ml SI(MOD-sp4) 21.3 ml/m\S\2 SV(MOD-sp2) 38.3 ml SI(MOD-sp2) 17.7 ml/m\S\2 SV(MOD-bp) 42.3 ml SI(MOD-bp) 19.6 ml/m\S\2 SV(sp4-el) 49.3 ml SI(sp4-el) 22.8 ml/m\S\2 SV(sp2-el) 42.0 ml SI(sp2-el) 19.4 ml/m\S\2 Doppler Measurements and Calculations Ao V2 max 115.8 cm/sec Ao max PG 5.4 mmHg Ao max PG (full) 0.05 mmHg LV V1 max PG 5.3 mmHg LV V1 max 115.2 cm/sec
[2017-06-03] MEDS: ACYCLOVIR 400 MG TAB PO SCH ×2 (17:25→23:29)
[2017-06-03] MEDS: DRONABINOL 2.5 MG CAP PO SCH (17:27)
--- NOTE | 2017-06-03 18:55 | Family Medicine Progress Note ---
Progress Note Date of Service Jun 03, 2017. Subjective Pt evaluation today including: conversation w/ patient, conversation w/ family , physical exam, chart review, lab review, review of inpatient medication list Pain: Chronic pain from lymphoma/left sided rib pain PO Intake: Tolerating well Voiding: no voiding problems Patient reports he is feeling better than he did on admission. Constitutional: + weakness, + fatigue Respiratory: + cough All Other Systems: Reviewed and Negative Medications Current Inpatient Medications Medications (Trade) Dose Ordered Sig/Sidney Route Start Time Stop Time Status Last Admin Dose Admin Acetaminophen (Tylenol Tab) 650 mg Q4H PRN PO 06/02/17 23:00 07/02/17 22:59 06/03/17 14:35 650 MG Al Hydrox/Mg Hydrox/Simethicone (Maalox Max Susp) 15 ml Q4H PRN PO 06/02/17 23:00 07/02/17 22:59 Magnesium Hydroxide (Milk Of Magnesia Susp) 30 ml Q6H PRN PO 06/02/17 23:00 07/02/17 22:59 Polyethylene (Miralax Powder Packet) 17 gm DAILY PRN PO 06/02/17 23:00 07/02/17 22:59 Ondansetron HCl (Zofran Inj) 4 mg Q6H PRN IV 06/02/17 23:00 07/02/17 22:59 Oseltamivir Phosphate (Tamiflu Cap) 75 mg BID PO 06/03/17 08:00 06/08/17 08:59 06/03/17 21:00 75 MG Heparin Sodium (Porcine) (Heparin 100 Unit/ml 5ml Flush) 5 ml PRN PRN IV 06/03/17 01:30 07/03/17 01:29 06/03/17 17:28 5 ML Gabapentin (Neurontin Tab) 600 mg TID PO 06/03/17 08:00 07/03/17 07:59 06/03/17 21:00 600 MG Miscellaneous Information (Consult) 1 ea UD PRN N/A 06/03/17 09:30 07/03/17 09:29 Oxycodone HCl (Roxicodone Immediate Rel Tab) q4h prn for pain >6/10 Q4 PRN PO 06/03/17 09:45 06/17/17 09:44 Pantoprazole Sodium (Protonix Tab) 40 mg HS PRN PO 06/03/17 09:45 07/03/17 09:44 Cefepime HCl 2000 mg/Syringe 20 ml @ 5 mls/min Q8H IV 06/03/17 10:00 06/10/17 09:59 06/03/17 17:28 5 MLS/MIN Vancomycin HCl 1500 mg/Sodium Chloride 530 ml @ 200 mls/hr Q18H IV 06/04/17 04:00 06/10/17 23:59 Methadone HCl (Dolophine Tab) 15 mg Q8 PO 06/03/17 11:45 06/17/17 11:44 06/03/17 17:28 15 MG Acyclovir (Zovirax Tab) 800 mg BID PO 06/03/17 15:30 07/03/17 15:29 06/03/17 17:25 800 MG Bisacodyl (Dulcolax Tab) 10 mg HS PRN PO 06/03/17 15:00 07/03/17 14:59 Docusate Sodium (coLACE CAP) 100 mg QAM PO 06/04/17 08:00 07/04/17 07:59 Docusate Sodium (coLACE CAP) 200 mg HS PO 06/03/17 21:00 07/03/17 20:59 06/03/17 21:01 200 MG Dronabinol (Marinol Cap) 5 mg TIDM PO 06/03/17 17:00 07/03/17 16:59 06/03/17 17:27 5 MG Escitalopram Oxalate (Lexapro Tab) 20 mg QAM PO 06/04/17 08:00 07/04/17 07:59 Lorazepam (Ativan Tab) 1 mg HS PO 06/03/17 21:00 07/03/17 20:59 06/03/17 21:10 1 MG Senna (Senokot Tab) 17.2 mg AMHS PO 06/03/17 20:00 07/03/17 19:59 06/03/17 21:02 17.2 MG Triamcinolone Acetonide (Triamcinolone Dental Paste) 1 appln TID MT 06/03/17 20:00 07/03/17 19:59 Cetirizine HCl (zyrTEC TAB) 10 mg DAILY PO 06/04/17 08:00 07/04/17 07:59 Miscellaneous Information (Order Awaiting Action) 1 ea QS N/A 06/03/17 16:00 07/03/17 15:59 Venetoclax (Venclexta) 1,200 mg QAM PO 06/03/17 19:45 07/03/17 19:44 06/03/17 21:03 1,200 MG Dexlansoprazole (Dexilant Dr) 60 mg QAM PO 06/04/17 08:00 07/04/17 07:59 Dexlansoprazole (Dexilant Dr) 30 mg HS PO 06/03/17 21:00 07/03/17 20:59 Dexamethasone/ Nystatin/ Diphenhydramine HCl/Sucrose/ Microcrystalline Cellulose/Barcode Q4H PRN PO 06/03/17 20:45 07/03/17 20:44 Objective Vital Signs Date Time Temp Pulse Resp B/P (MAP) Pulse Ox O2 Delivery O2 Flow Rate FiO2 06/03/17 19:09 36.9 79 12 90/57 (68) 97 06/03/17 15:55 36.7 87 22 98/62 (74) 100 Room Air 06/03/17 13:26 97/63 (74) 06/03/17 11:59 36.5 88 20 91/58 (69) 100 Room Air 06/03/17 11:11 85 98/63 (75) 06/03/17 09:43 96/63 (74) 06/03/17 09:40 Room Air 06/03/17 08:09 36.9 83 18 87/56 (66) 98 Room Air 77/47 (57) 06/03/17 01:24 37.2 100 20 100/63 100 Room Air 06/03/17 00:59 37.2 100 20 100/63 (75) 97 Room Air Physical Exam General Appearance: WD/WN, no apparent distress, + pertinent finding (pallor) Eyes: normal inspection ENT: normal ENT inspection, hearing grossly normal, pharynx normal Neck: supple, no adenopathy, no JVD, trachea midline Respiratory/Chest: chest non-tender, lungs clear, normal breath sounds, no respiratory distress, no accessory muscle use Cardiovascular: regular rate, rhythm, no edema, no gallop Abdomen: normal bowel sounds, non tender, soft Extremities: normal inspection, no pedal edema, no calf tenderness 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, no motor/sensory deficits, alert, normal mood/affect, oriented x 3 Skin: normal color, warm/dry, no rash Laboratory Results Last Resulted 06/03/17 05:20 Last Resulted 06/03/17 05:20 Assessment and Plan 32-year-old male with a past medical history of B-cell lymphoma on chemotherapy with POCH-R, Venclexta in addition to Neulasta, history of multiple admissions for neutropenic fever, presenting with neutropenic fever in the setting of cough bodyache, found to have positive Influenza swab in addition to L basilar infiltrate on CXR Neutropenic Fever in the setting of suspected Pneumonia, Influenza - Temperature of 37.[address] of .03, plt 20 - Consider neupogen if plt lowers - L Basilar infiltrates suspicious for Pneumonia - Positive Flu Swab, however Patient tested positive for Flu swab during previous admission (05/18), perhaps immunosuppression secondary to chemo prevented clearing of virus - Start Tamiflu , Start empiric coverage Vancomycin, Cefepime - Blood cx's pending; treat until 48 hrs neg - BP has been consistently low since his last admission; Patient delivered 750 mL after BP measured at 87/56. BP responded to 98/63. Asymptomatic - Echo ordered considering pt has had max lifetime dose of doxirubicin: no change from echo in 2016. EF 50-55% Neuropathic Pain - Continue home Gabapentin 600mg PO TID - Home methadone restarted along with oxy prn History of Lymphoma s/p recent chemotherapy POCH-R (last chemo treatment: May 24- ) Venclexta( 1200mg daily) likely contributor to neutropenia follows with [facility] for management, [facility] ( labwork only) Anemia within baseline range Hg 8.7 on arrival likely secondary to chemotherapy, no evidence of bleed Continue to monitor Hyponatremia -mild, Na 133 -Continue to monitor DVT Prophylaxis - SCD;s Disposition - Admit to Med/Surg Code Status - Full Resuscitation Resident Tracking Resident Involvement: Resident Care Provided Care Provided: Adult Hospital Medicine
[2017-06-03] MEDS: TRIAMCINOLONE ACET 0.1% ORABASE 5 GM TUBE MT SCH (20:00)
[2017-06-03] MEDS ORDERED: DEXAMETHASONE CONC SOLN 3.75 MG, NYSTATIN SUSP 30 ML, DiphenhydrAMINE HCL SYRUP 300 MG,... PO PRN ×5 (20:45)
[2017-06-03] MEDS: DEXLANSOPRAZOLE 30 MG PO SCH (21:00)
[2017-06-03] MEDS: DOCUSATE SODIUM 100 MG CAP PO SCH (21:01)
[2017-06-03] MEDS: SENNA 8.6 MG TAB PO SCH (21:02)
[2017-06-03] MEDS: VENETOCLAX 100 MG TAB PO SCH (21:03)
[2017-06-03] MEDS: LORAZEPAM 1 MG TAB PO SCH (21:10)
[2017-06-04] VITALS (11 sets, daily range): BP systolic 95–115; BP diastolic 63–68; PULSE 76–111; TEMP 36.1–37.2; O2SAT 96–100; BMI 25.7
[2017-06-04] MEDS: ACETAMINOPHEN 325 MG TAB PO PRN (00:21)
[2017-06-04] MEDS: CEFEPIME IV 2,000 MG in SYRINGE 7.5 ML IV SCH ×3 (02:05→20:05)
[2017-06-04] MEDS: VANCOMYCIN INJ 1,500 MG in SODIUM CHLORIDE 0.9% 500ML 500 ML IV SCH ×2 (04:33→22:58)
[2017-06-04] MEDS: METHADONE HCL 5 MG TAB PO SCH ×3 (06:16→22:59)
[2017-06-04 06:30] LABS: HEMOGLOBIN 7.2 g/dL (14.0-18.0); MEAN CORPUSCULAR HEMOGLOBIN 30.5 pg (25-34); MEAN CORPUSCULAR HGB CONC 34.3 g/dl (32-36); PLATELET COUNT 14 K/uL (130-400); RED CELL DISTRIBUTION WIDTH CV 15.7 % (11.5-14.5); RED CELL DISTRIBUTION WIDTH SD 49.5 fL (36.4-46.3); WHITE BLOOD COUNT 0.03 K/uL (4.8-10.8)
[2017-06-04 06:41] LABS: ALBUMIN 2.5 gm/dl (3.4-5.0); CALCIUM 9.4 mg/dl (8.5-10.1); CREATININE 1.37 mg/dl (0.60-1.40); POTASSIUM 4.3 mmol/L (3.5-5.1)
[2017-06-04 06:53] LABS: TOTAL PROTEIN 5.9 gm/dl (6.4-8.2)
[2017-06-04] MEDS: DOCUSATE SODIUM 100 MG CAP PO SCH ×2 (07:57→20:09)
[2017-06-04] MEDS: ESCITALOPRAM OXALATE 20 MG TAB PO SCH (07:57)
[2017-06-04] MEDS: GABAPENTIN 600 MG TAB PO SCH ×3 (07:58→20:05)
[2017-06-04] MEDS: OSELTAMIVIR PHOSPHATE 75 MG CAP PO SCH ×2 (07:58→20:16)
[2017-06-04] MEDS: SENNA 8.6 MG TAB PO SCH ×2 (07:59→20:07)
[2017-06-04] MEDS: TRIAMCINOLONE ACET 0.1% ORABASE 5 GM TUBE MT SCH ×4 (08:00→20:00)
[2017-06-04] MEDS ORDERED: LANSOPRAZOLE SOLUTAB 30 MG PO SCH (08:00)
[2017-06-04] MEDS: CETIRIZINE HCL 10 MG TAB PO SCH (08:00)
[2017-06-04] MEDS: ACYCLOVIR 400 MG TAB PO SCH ×2 (08:01→20:06)
[2017-06-04] MEDS: DRONABINOL 2.5 MG CAP PO SCH ×3 (08:06→17:21)
[2017-06-04] MEDS: DEXLANSOPRAZOLE 60 MG CAPDR PO SCH (08:34)
[2017-06-04] MEDS: VENETOCLAX 100 MG TAB PO SCH (08:35)
--- NOTE | 2017-06-04 10:37 | Progress Note ---
Subjective Date of Service: Jun 04, 2017. Subjective The patient is afebrile overnight. He has not had fever since admission. He remains on empiric Vanco and cefepime. His blood cultures are negative to date. Sputum culture was obtained and results of this are pending. His flu swab was positive but he only has received 1 dose of Tamiflu. He remains neutropenic a white blood cell count 0.03. He did have Neulasta prior to admission. No overnight events were recorded. He is tolerating antibiotics well. Problem List Medical Problems: (1) Acute kidney injury Status: Acute (2) Febrile neutropenia Status: Acute (3) Febrile neutropenia Status: Acute (4) Fever Status: Acute (5) Fever Status: Acute (6) Influenza Status: Acute (7) Influenza Status: Acute (8) Neutropenia Status: Acute (9) Pancytopenia Status: Acute (10) Pancytopenia Status: Acute Objective Vital Signs Date Time Temp Pulse Resp B/P (MAP) Pulse Ox O2 Delivery O2 Flow Rate FiO2 06/04/17 09:18 36.4 76 18 98/65 (76) 97 06/04/17 08:00 Room Air 06/04/17 08:00 Room Air 06/04/17 04:00 36.9 85 20 115/68 (84) 100 Room Air 06/04/17 01:27 37.2 89 20 107/68 (81) 100 Room Air 06/03/17 23:35 Room Air 06/03/17 19:09 36.9 79 12 90/57 (68) 97 06/03/17 17:15 100 Room Air 06/03/17 15:55 36.7 87 22 98/62 (74) 100 Room Air 06/03/17 13:26 97/63 (74) 06/03/17 11:59 36.5 88 20 91/58 (69) 100 Room Air 06/03/17 11:11 85 98/63 (75) Laboratory Results Item Value Date Time Blood Culture - Preliminary Resulted 06/02/17 194 Blood NO GROWTH TO DATE. Blood Culture - Preliminary Resulted 06/02/172009 Blood NO GROWTH TO DATE. Gram Stain - Final Resulted 06/04/17 0205 Sputum Expectorated Sputum Last 24 Hours Test 06/04/17 05:22 White Blood Count 0.03 K/uL Red Blood Count 2.36 M/uL Hemoglobin 7.2 g/dL Hematocrit 21.0 % Mean Corpuscular Volume 89.0 fL Mean Corpuscular Hemoglobin 30.5 pg Mean Corpuscular Hemoglobin Concent 34.3 g/dl RDW Standard Deviation 49.5 fL RDW Coefficient of Variation 15.7 % Platelet Count 14 K/uL Erythrocyte Sedimentation Rate 31 mm/hr Sodium Level 133 mmol/L Potassium Level 4.3 mmol/L Chloride Level 101 mmol/L Carbon Dioxide Level 25 mmol/L Anion Gap 7.0 mmol/L Blood Urea Nitrogen 32 mg/dl Creatinine 1.37 mg/dl Est Creatinine Clear Calc Drug Dose 85.8 ml/min Estimated GFR () 77.4 Estimated GFR (Non- 66.8 BUN/Creatinine Ratio 23.3 Random Glucose 102 mg/dl Calcium Level 9.4 mg/dl Total Bilirubin 0.6 mg/dl Aspartate Amino Transf (AST/SGOT) 10 U/L Alanine Aminotransferase (ALT/SGPT) 24 U/L Alkaline Phosphatase 87 U/L C-Reactive Protein 24.20 mg/dl Total Protein 5.9 gm/dl Albumin 2.5 gm/dl Globulin 3.4 gm/dl Albumin/Globulin Ratio 0.7 Assessment and Plan (1) Neutropenic fever Assessment & Plan: I he will continue on broad-spectrum antibiotics pending the results of blood and sputum culture. Influenza a was positive on he was initiated on Tamiflu but it does not appear that this has been continued. (2) Influenza
--- NOTE | 2017-06-04 13:44 | ONCOLOGY CONSULTATION ---
DATE OF CONSULTATION: 06/04/2017 REASON FOR CONSULTATION: Neutropenic fever. HISTORY OF PRESENT ILLNESS: Malik is a pleasant, but unfortunate 32-year-old gentleman, well known to [facility] with refractory non-Hodgkin's lymphoma. Malik now continues chemotherapy through the [facility] and presently receiving R-EPOCH plus Venclexta 1200 mg p.o. q. daily. Malik apparently had contracted influenza about 3-4 weeks ago. He thought that he had recovered and actually received his last dose of chemotherapy on May 29. He then received Neulasta on May 31. The patient presented with low grade fever at 100-100.4 to be exact with associated body ache, generalized malaise, headache and nausea. This gentleman has had multiple admissions for neutropenic fever in the past. According to Malik, the [facility] is planning for haploidentical peripheral blood stem cell transplant if he is ever to reach remission. The patient had been on prophylactic antimicrobials leading up to admission. PAST MEDICAL HISTORY: Again, significant for refractory non-Hodgkin's lymphoma and GERD. PAST SURGICAL HISTORY: Includes a liver biopsy. MEDICATIONS: Prior to admission Venclexta 1200 mg p.o. q. daily, triamcinolone cream 1 application to affected area t.i.d., Bactrim double strength 1 tablet p.o. 3 times weekly, senna 2 tablets p.o. q.a.m. and at bedtime, Ulcer Ease 15 mL p.o. q. 6 hours, Tamiflu 75 mg p.o. b.i.d., lorazepam 1 mg p.o. at bedtime, Levaquin 500 mg p.o. q. daily, gabapentin 600 mg p.o. t.i.d., Lexapro 20 mg p.o. q. daily, Marinol 5 mg p.o. t.i.d., docusate sodium 100 mg in the a.m. and 200 mg at bedtime, Dexilant 60 mg p.o. q.a.m., sertraline 10 mg p.o. q. daily, cefpodoxime 1 tablet p.o. b.i.d., and acyclovir 800 mg p.o. b.i.d. ALLERGIES: TO ERYTHROMYCIN AND COMPAZINE. SOCIAL HISTORY: The patient is and lives with his family. He is employed. He is a nonsmoker and nondrinker. FAMILY HISTORY: Positive for cancer and heart disease. REVIEW OF SYSTEMS: As per HPI, most notably for generalized malaise, muscle aches, low grade fever and semi-productive cough. Appetite and weight have remained stable. SKIN: No current rashes or lesions. No history of dermatoses. HEENT: Negative for headaches, lightheadedness or dizziness. No acute visual hearing deficits. No sinus symptoms, sore throat or dysphagia. LYMPHATICS: History of refractory lymphoproliferative disease. CARDIAC: Negative for coronary artery disease. No angina or palpitations. PULMONARY: Negative for COPD. No shortness of breath or dyspnea. Positive for semi-productive cough. GASTROINTESTINAL: Positive for mild nausea. Otherwise no constipation or diarrhea presently. GENITOURINARY: No hematuria, dysuria, or urinary incontinence. PSYCHIATRIC: Negative for anxiety, depression or psychoses. ENDOCRINE: Negative for diabetes or thyroid disease. HEMATOLOGIC: Treatment induced cytopenias, presently neutropenic. PHYSICAL EXAMINATION: GENERAL: Malik is a well-developed and nourished 32-year-old gentleman in no acute distress. VITAL SIGNS: Temperature 36.4, pulse 76, respirations 18, and blood pressure 98/65. SKIN: Warm, dry, and noncyanotic without petechia, rash or ecchymosis. HEENT: Head is atraumatic and normocephalic. Eyes: PERRLA and EOMI. Sclerae nonicteric. No conjunctival injection. Nares patent without rhinorrhea or discharge. Throat is clear. Tongue is midline. Mucous membranes are moist. No evidence of thrush. NECK: Supple without JVD or thyromegaly. LYMPHATICS: No cervical, supraclavicular, or axillary palpable nodes. HEART: Regular rate and rhythm. No clicks, rubs, murmurs or gallops. LUNGS: Clear to auscultation bilaterally. ABDOMEN: Soft, nontender, and nondistended without palpable hepatosplenomegaly. EXTREMITIES: No calf tenderness or swelling. No clubbing, cyanosis or edema. NEUROLOGIC: He is awake, alert, and oriented x3. Cranial nerves are intact. No gross motor or sensory deficits are noted. LABORATORY DATA: WBC count 30, hemoglobin 7.2, and platelets 14,000. Sodium 133, potassium 4.3, chloride 101, carbon dioxide 25, BUN 32, and creatinine 1.37. Albumin 2.5. IMPRESSION: 1. Neutropenic fever. 2. Refractory non-Hodgkin's lymphoma, status post R-EPOCH chemotherapy. 3. Chronic anemia. 4. Hyponatremia. 5. Hypoalbuminemia. 6. Influenza with suspected pneumonia. PLAN: Malik is very familiar to [facility] with frequent hospitalizations, mostly secondary to neutropenic fever. He recently received R-EPOCH at the [facility] followed up by [facility]. He apparently had influenza infection a couple weeks ago and what appeared is he never totally cleared the infection. He is once again titer positive and currently receiving antiviral medication. He received Neulasta just a couple of days ago and therefore would not incorporate Neupogen just yet. I would continue to observe him and if his white count is slow to return, may consider Neupogen enhancement. As for anemia, I will go ahead and proceed with 2 units of packed RBCs. PRBC's should be CMV negative, filtered and irradiated. According to maría elena Malik, the [facility] is planning for haploidentical peripheral blood stem cell transplant utilizing his father. Thus, once he is cleared medically to be discharged from [facility], he will return to the [facility] for outpatient followup. I have no issue with his current medical management otherwise and I have nothing further to add at this point. We will continue to follow Malik periodically during his hospital stay. PARRIS
--- NOTE | 2017-06-04 17:42 | Family Medicine Progress Note ---
Progress Note Date of Service Jun 04, 2017. Subjective Pt evaluation today including: conversation w/ patient, physical exam, chart review, lab review, conversation w/ clinical consultant, review of inpatient medication list Pain: Chronic bone pain PO Intake: tolerating well Voiding: no voiding problems Patient is fatigued this morning. He wishes to go home. Constitutional: + weakness, + fatigue, No fever, No chills, No sweats, No weight loss, No problem reported Respiratory: No cough, No sputum, No wheezing, No shortness of breath, No dyspnea on exertion, No dyspnea at rest, No hemoptysis, No problem reported Abdomen: No pain, No nausea, No vomiting, No diarrhea, No constipation, No GI bleeding, No problem reported All Other Systems: Reviewed and Negative Medications Current Inpatient Medications Medications (Trade) Dose Ordered Sig/Sidney Route Start Time Stop Time Status Last Admin Dose Admin Acetaminophen (Tylenol Tab) 650 mg Q4H PRN PO 06/02/17 23:00 07/02/17 22:59 06/04/17 00:21 650 MG Al Hydrox/Mg Hydrox/Simethicone (Maalox Max Susp) 15 ml Q4H PRN PO 06/02/17 23:00 07/02/17 22:59 Magnesium Hydroxide (Milk Of Magnesia Susp) 30 ml Q6H PRN PO 06/02/17 23:00 07/02/17 22:59 Polyethylene (Miralax Powder Packet) 17 gm DAILY PRN PO 06/02/17 23:00 07/02/17 22:59 Ondansetron HCl (Zofran Inj) 4 mg Q6H PRN IV 06/02/17 23:00 07/02/17 22:59 Oseltamivir Phosphate (Tamiflu Cap) 75 mg BID PO 06/03/17 08:00 06/08/17 08:59 06/04/17 07:58 75 MG Heparin Sodium (Porcine) (Heparin 100 Unit/ml 5ml Flush) 5 ml PRN PRN IV 06/03/17 01:30 07/03/17 01:29 06/04/17 10:29 5 ML Gabapentin (Neurontin Tab) 600 mg TID PO 06/03/17 08:00 07/03/17 07:59 06/04/17 14:35 600 MG Miscellaneous Information (Consult) 1 ea UD PRN N/A 06/03/17 09:30 07/03/17 09:29 Oxycodone HCl (Roxicodone Immediate Rel Tab) q4h prn for pain >6/10 Q4 PRN PO 06/03/17 09:45 06/17/17 09:44 Pantoprazole Sodium (Protonix Tab) 40 mg HS PRN PO 06/03/17 09:45 07/03/17 09:44 Cefepime HCl 2000 mg/Syringe 20 ml @ 5 mls/min Q8H IV 06/03/17 10:00 06/10/17 09:59 06/04/17 10:21 5 MLS/MIN Vancomycin HCl 1500 mg/Sodium Chloride 530 ml @ 200 mls/hr Q18H IV 06/04/17 04:00 06/10/17 23:59 06/04/17 04:33 200 MLS/HR Methadone HCl (Dolophine Tab) 15 mg Q8 PO 06/03/17 11:45 06/17/17 11:44 06/04/17 14:35 15 MG Acyclovir (Zovirax Tab) 800 mg BID PO 06/03/17 15:30 07/03/17 15:29 06/04/17 08:01 800 MG Bisacodyl (Dulcolax Tab) 10 mg HS PRN PO 06/03/17 15:00 07/03/17 14:59 Docusate Sodium (coLACE CAP) 100 mg QAM PO 06/04/17 08:00 07/04/17 07:59 06/04/17 07:57 100 MG Docusate Sodium (coLACE CAP) 200 mg HS PO 06/03/17 21:00 07/03/17 20:59 06/03/17 21:01 200 MG Dronabinol (Marinol Cap) 5 mg TIDM PO 06/03/17 17:00 07/03/17 16:59 06/04/17 17:21 5 MG Escitalopram Oxalate (Lexapro Tab) 20 mg QAM PO 06/04/17 08:00 07/04/17 07:59 06/04/17 07:57 20 MG Lorazepam (Ativan Tab) 1 mg HS PO 06/03/17 21:00 07/03/17 20:59 06/03/17 21:10 1 MG Senna (Senokot Tab) 17.2 mg AMHS PO 06/03/17 20:00 07/03/17 19:59 06/04/17 07:59 17.2 MG Triamcinolone Acetonide (Triamcinolone Dental Paste) 1 appln TID MT 06/03/17 20:00 07/03/17 19:59 Cetirizine HCl (zyrTEC TAB) 10 mg DAILY PO 06/04/17 08:00 07/04/17 07:59 06/04/17 08:00 10 MG Miscellaneous Information (Order Awaiting Action) 1 ea QS N/A 06/03/17 16:00 07/03/17 15:59 Venetoclax (Venclexta) 1,200 mg QAM PO 06/03/17 19:45 07/03/17 19:44 06/04/17 08:35 1,200 MG Dexlansoprazole (Dexilant Dr) 60 mg QAM PO 06/04/17 08:00 07/04/17 07:59 06/04/17 08:34 60 MG Dexlansoprazole (Dexilant Dr) 30 mg HS PO 06/03/17 21:00 07/03/17 20:59 Dexamethasone/ Nystatin/ Diphenhydramine HCl/Sucrose/ Microcrystalline Cellulose/Barcode Q4H PRN PO 06/03/17 20:45 07/03/17 20:44 Objective Vital Signs Date Time Temp Pulse Resp B/P (MAP) Pulse Ox O2 Delivery O2 Flow Rate FiO2 06/04/17 17:26 36.6 97 18 106/64 98 06/04/17 16:03 36.9 95 18 95/64 (74) 99 Room Air 06/04/17 16:00 Room Air 06/04/17 11:41 36.7 111 18 106/67 (80) 98 Room Air 06/04/17 09:18 36.4 76 18 98/65 (76) 97 06/04/17 08:00 Room Air 06/04/17 08:00 Room Air 06/04/17 04:00 36.9 85 20 115/68 (84) 100 Room Air 06/04/17 01:27 37.2 89 20 107/68 (81) 100 Room Air 2/12/18 23:35 Room Air 06/03/17 19:09 36.9 79 12 90/57 (68) 97 Physical Exam General Appearance: WD/WN, no apparent distress Eyes: normal inspection, PERRL, EOMI, sclerae normal ENT: hearing grossly normal, pharynx normal Neck: supple, no carotid bruits, trachea midline Respiratory/Chest: chest non-tender, lungs clear, normal breath sounds, no respiratory distress, no accessory muscle use Cardiovascular: regular rate, rhythm, no edema, no gallop, no JVD, no murmur Abdomen: normal bowel sounds, non tender, soft Extremities: normal range of motion, non-tender, normal inspection, no pedal edema, no calf tenderness 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, no motor/sensory deficits, alert, normal mood/affect, oriented x 3 Skin: warm/dry, no rash, + pertinent finding (pallor) Laboratory Results Last Resulted 06/04/17 05:22 Last Resulted 06/04/17 05:22 Assessment and Plan 32-year-old male with a past medical history of B-cell lymphoma on chemotherapy with POCH-R, Venclexta in addition to Neulasta, history of multiple admissions for neutropenic fever, presenting with neutropenic fever in the setting of cough body aches, found to have positive Influenza swab in addition to L basilar infiltrate on CXR Neutropenic Fever in the setting of suspected Pneumonia, Influenza - L Basilar infiltrates suspicious for Pneumonia - Temperature of 37.8 on arrival, normal since then - WBC CT of .02, plt 14 - Involved heme/onc today, appreciate recs: He received Neulasta just a few days ago and therefore would not incorporate Neupogen just yet. continue to observe and if his white count is slow to return, may consider Neupogen enhancement. For anemia, proceed with packed RBCs. CMV negative, filtered and irradiated. According to maría elena Gan, the [facility] is planning for haploidentical peripheral blood stem cell transplant utilizing his father. Thus, once he is cleared medically to be discharged from [facility] he will return to the [facility] for outpatient followup - Positive Flu Swab, however Patient tested positive for Flu swab during previous admission (05/18), perhaps immunosuppression secondary to chemo prevented clearing of virus - Tamiflu , Started empiric coverage Vancomycin, Cefepime - ID consulted, appreciate recs: Continue BSAbx until cultures return - Blood cx's pending; treat until 48 hrs neg - BP has been consistently low since his last admission; Patient delivered 750 mL after BP measured at 87/56. BP responded to 98/63. Asymptomatic - Echo ordered considering pt has had max lifetime dose of doxirubicin: no change from echo in 2016. EF 50-55% Neuropathic Pain - Continue home Gabapentin 600mg PO TID - Home methadone restarted along with oxy prn History of Lymphoma s/p recent chemotherapy POCH-R (last chemo treatment: May 24) Venclexta ( 1200mg daily) likely contributor to neutropenia follows with [facility] Oncology for management, [facility] Oncology (labwork only) See above note from heme/onc Oncologist at [facility]: Dr. Sosa cell: [phone] Sosa, patient to receive Platelets, 1 U to be given prior to discharge per their institutional guidelines Anemia within baseline range Hg 8.7 on arrival, 7.2 today Transfused 1 unit PRBC today, monitor h&h; will recheck at 2000 and transfuse if needed likely secondary to chemotherapy, no evidence of bleed Continue to monitor Hyponatremia -mild, Na 133 -Continue to monitor DVT Prophylaxis - SCD;s Disposition Med/Surg, home tomorrow Code Status - Full Resuscitation Resident Tracking Resident Involvement: Resident Care Provided Care Provided: Adult Hospital Medicine
[2017-06-04] MEDS: DEXLANSOPRAZOLE 30 MG PO SCH (20:11)
[2017-06-04 21:33] LABS: HEMOGLOBIN 8.4 g/dL (14.0-18.0)
[2017-06-04] MEDS: LORAZEPAM 1 MG TAB PO SCH (22:58)
[2017-06-05] VITALS (10 sets, daily range): BP systolic 94–111; BP diastolic 59–67; PULSE 62–100; TEMP 36.6–37; O2SAT 96–100; Ht 185.4 cm; Wt 89.6 kg
--- NOTE | 2017-06-05 00:05 | Discharge Instructions ---
Discharge Instructions Date of Service Jun 04, 2017. Admission Reason for Admission: Influenza, Neutropenic Fever Discharge Discharge Diagnosis / Problem: Neutropenic fever Discharge Goals Goal(s): Improve disease control, Therapeutic intervention, Prevent Disease Progression Activity Recommendations Activity Limitations: per Instructions/Follow-up section . Instructions / Follow-Up Instructions / Follow-Up During this admission you were evaluated for a neutropenic fever and positive influenza testing. You were treated for suspected pneumonia. You were started on high dose IV antibiotics on admission, which will be de- escalated when you leave hospital to augmentin, which you will take twice daily for 10 days. During this visit you required 1 unit of blood and after speaking with Dr. Sosa , you required 1 unit of platelets prior to discharge. It was not deemed necessary to incorporate Neupogen at this time. You should follow up with [facility] as an outpatient as planned. You should finish the second course of tamiflu on discharge as well, take this tonight, and twice daily for 2 more days An echo was performed during this visit considering your low blood pressure, which showed no change from echo in 2016. EF 50-55%. Please ask your nurse for a records release form to obtain these results and have them sent to Dr. Sosa. Continue your other home medications as prescribed. You should have labwork done on saturday to check your blood counts, and a prescription has been given to you for this. Current Hospital Diet Patient's current hospital diet: Regular Diet Discharge Diet Recommended Diet: Regular Diet Pending Studies Studies pending at discharge: no Medical Emergencies . Who to Call and When: Medical Emergencies: If at any time you feel your situation is an emergency, please call 911 immediately. . Non-Emergent Contact Non-Emergency issues call your: Primary Care Provider . . "Provider Documentation" section prepared by Shanna Martin. . VTE Core Measure Inpt VTE Proph given/why not?: SCD's
[2017-06-05] MEDS: CEFEPIME IV 2,000 MG in SYRINGE 7.5 ML IV SCH ×2 (01:40→10:28)
[2017-06-05] MEDS: METHADONE HCL 5 MG TAB PO SCH ×2 (05:56→12:41)
[2017-06-05 06:28] LABS: HEMATOCRIT 21.7 % (42-52); HEMOGLOBIN 7.5 g/dL (14.0-18.0); MEAN CELL VOLUME 86.5 fL (80-100); MEAN CORPUSCULAR HEMOGLOBIN 29.9 pg (25-34); MEAN CORPUSCULAR HGB CONC 34.6 g/dl (32-36); MEAN PLATELET VOLUME 10.2 fL (7.4-10.4); PLATELET COUNT 12 K/uL (130-400); RED CELL DISTRIBUTION WIDTH CV 16.2 % (11.5-14.5); RED CELL DISTRIBUTION WIDTH SD 51.7 fL (36.4-46.3); WHITE BLOOD COUNT 0.06 K/uL (4.8-10.8)
[2017-06-05 06:55] LABS: CALCIUM 9.1 mg/dl (8.5-10.1); CREATININE 1.34 mg/dl (0.60-1.40)
[2017-06-05] MEDS: TRIAMCINOLONE ACET 0.1% ORABASE 5 GM TUBE MT SCH ×2 (10:24→10:34)
[2017-06-05] MEDS: ESCITALOPRAM OXALATE 20 MG TAB PO SCH (10:25)
[2017-06-05] MEDS: DOCUSATE SODIUM 100 MG CAP PO SCH (10:25)
[2017-06-05] MEDS: DEXLANSOPRAZOLE 60 MG CAPDR PO SCH (10:25)
[2017-06-05] MEDS: GABAPENTIN 600 MG TAB PO SCH ×2 (10:26→12:41)
[2017-06-05] MEDS: DRONABINOL 2.5 MG CAP PO SCH ×2 (10:26→12:40)
[2017-06-05] MEDS: SENNA 8.6 MG TAB PO SCH (10:27)
[2017-06-05] MEDS: OSELTAMIVIR PHOSPHATE 75 MG CAP PO SCH (10:27)
[2017-06-05] MEDS: VENETOCLAX 100 MG TAB PO SCH (10:27)
[2017-06-05] MEDS: ACYCLOVIR 400 MG TAB PO SCH (10:27)
[2017-06-05] MEDS: CETIRIZINE HCL 10 MG TAB PO SCH (10:28)
[2017-06-05] MEDS ORDERED: TMF75 PO (12:02)
[2017-06-05] MEDS ORDERED: AMOX875T PO (12:02)
[2017-06-05] MEDS ORDERED: VANCOMYCIN TROUGH ONE (15:30)
--- NOTE | 2017-06-05 23:45 | Discharge Summary ---
Discharge Summary Date of Service Jun 05, 2017. Discharge Summary Admission Date: Jun 02, 2017 at 23:09 Discharge Date: Jun 05, 2017 Discharge Disposition: Home Principal Diagnosis: Neutropenic fever Problems/Secondary Diagnoses: Neutropenic Fever in the setting of suspected Pneumonia, Influenza Neuropathic Pain History of B cell Lymphoma Anemia Hyponatremia Immunizations: Have You Had Influenza Vaccine: No History of Tetanus Vaccine?: Unknown History of Pneumococcal: Unknown History of Hepatitis B Vaccine: Unknown Consultations: Heme/onc, infectious disease Medication Reconciliation New Medications: Amoxicillin & Pot Clavulanate (Augmentin 875-125 mg) 1 Tab Tab 875 MG PO BID for 10 Days, #20 TAB Oseltamivir Phosphate (Tamiflu) 75 Mg Cap 75 MG PO BID for 3 Days, #5 CAP Continued Medications: Acyclovir (Zovirax) 800 Mg Tab 800 MG PO BID Bisacodyl (Bisacodyl) 5 Mg Tab 2 TAB PO HS PRN for Constipation Cefpodoxime Proxetil (Cefpodoxime Proxetil) 200 Mg Tab 1 TAB PO BID, #60 TAB take only as directed Cetirizine Hcl (Cetirizine Hcl) 10 Mg Chw 1 TAB PO DAILY Dexlansoprazole (Dexilant) 60 Mg Cap 60 MG PO QAM Dexlansoprazole (Dexilant) 30 Mg Cap 30 MG PO HS PRN for gerd Docusate Sodium (Docusate Sodium) 100 Mg Cap 100 MG PO QAM Docusate Sodium (Docusate Sodium) 100 Mg Cap 200 MG PO HS Dronabinol (Marinol) 2.5 Mg Cap 5 MG PO TIDM Escitalopram Oxalate (Lexapro) 20 Mg Tab 20 MG PO QAM Gabapentin (Gabapentin) 600 Mg Tab 600 MG PO TID Levofloxacin (Levaquin) 500 Mg Tab 500 MG PO DAILY for 7 Days, TAB Lorazepam (Ativan) 1 Mg Tab 1 MG PO HS Methadone Hcl (Dolophine) 10 Mg Tab 15 MG PO Q8 Oxycodone Immediate Rel Tab (Roxicodone Ir) 5 Mg Tab 10-15 MG PO Q4 PRN for Pain, TAB Phenol-Sodium Borate (Ulcerease) 1 Viky Viky 15 ML PO Q6H SWISH AND SPIT Sennosides (Senna-Lax) 8.6 Mg Tab 2 TABS PO AMHS Sulfa/Trimethoprim (Bactrim Ds 800MG/160MG) Tab 1 TAB PO 3XWK, #6 TAB MON,WED,FRI Triamcinolone Acet (Triamcinolone Acetonide) 15 Appln/5 Gm Pste 1 APPLN MT TID for 7 Days Venetoclax (Venclexta) 100 Mg Tab 12 TABS PO DAILY@1500 [Magic Mouth Wash] () 5 ML PO Q4H SWISH AND SPIT Discontinued Medications: Oseltamivir Phosphate (Tamiflu) 75 Mg Cap 75 MG PO BID@0600,1800 for 4 Days, #7 CAP Discharge Exam ROS Constitutional: + weakness, + fatigue, No fever, No chills, No sweats, No weight loss, No problem reported Respiratory: No cough, No sputum, No wheezing, No shortness of breath, No dyspnea on exertion, No dyspnea at rest, No hemoptysis, No problem reported Abdomen: No pain, No nausea, No vomiting, No diarrhea, No constipation, No GI bleeding, No problem reported All Other Systems: Reviewed and Negative PE General Appearance: WD/WN, no apparent distress Eyes: normal inspection, PERRL, EOMI, sclerae normal ENT: hearing grossly normal, pharynx normal Neck: supple, no carotid bruits, trachea midline Respiratory/Chest: chest non-tender, lungs clear, normal breath sounds, no respiratory distress, no accessory muscle use Cardiovascular: regular rate, rhythm, no edema, no gallop, no JVD, no murmur Abdomen: normal bowel sounds, non tender, soft Extremities: normal range of motion, non-tender, normal inspection, no pedal edema, no calf tenderness 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 This on top of admission for positive influenza on May 18, 2017 treated with tamiflu. Neutropenic Fever in the setting of suspected Pneumonia, Influenza - L Basilar infiltrates suspicious for Pneumonia - Temperature of 37.8 on arrival, no other elevated temp during admission - WBC CT of .02, plt 14 - Involved heme/onc He received Neulasta just a few days ago and therefore would not incorporate Neupogen just yet. continue to observe and if his white count is slow to return, may consider Neupogen enhancement. For anemia, proceed with packed RBCs. CMV negative, filtered and irradiated. According to maría elena Gan, the [facility] is planning for haploidentical peripheral blood stem cell transplant utilizing his father. Thus, once he is cleared medically to be discharged from [facility] he will return to the [facility] for outpatient followup - Positive Flu Swab, however Patient tested positive for Flu swab during previous admission (05/18), perhaps immunosuppression secondary to chemo prevented clearing of virus - Tamiflu , Started empiric coverage Vancomycin, Cefepime - Blood cx's pending; treat until 48 hrs neg and convert to augmentin x 10 days - BP has been consistently low since his last admission; Patient delivered 750 mL after BP measured at 87/56. BP responded to 98/63. Asymptomatic - Echo ordered considering pt has had max lifetime dose of doxirubicin: no change from echo in 2016. EF 50-55% Neuropathic Pain - Continue home Gabapentin 600mg PO TID - Home methadone restarted along with oxy prn History of Lymphoma s/p recent chemotherapy POCH-R (last chemo treatment: May 24-) Venclexta ( 1200mg daily) likely contributor to neutropenia follows with [facility] Oncology for management, [facility] Oncology (labwork only) See above note from heme/onc Oncologist at [facility]: Dr. Sosa cell: [phone] Sosa, patient to receive Platelets, 1 U to be given prior to discharge per their institutional guidelines Follow up with Dr. Sosa as planned Anemia within baseline range Hg 8.7 on arrival, 7.2 on repeat draw Transfused 1 unit PRBC, monitor h&h, responded to 8.4. likely secondary to chemotherapy, no evidence of bleed Continue to monitor and follow up labwork 2 days after discharge Total Time Spent: Less than 30 minutes This includes examination of the patient, discharge planning, medication reconciliation, and communication with other providers. Discharge Instructions Please refer to the electronic Patient Visit Report (Discharge Instructions) for additional information. Follow-Up Labwork with repeat CBC two days after discharge; follow up as planned with oncology at [facility] Additional Copies To Mavis Sosa M.D.; Dorian Franz M.D. Resident Tracking Resident Involvement: Resident Care Provided Care Provided: [facility]
== END 2017-06-05 13:30 | disposition home or self-care (01) | DRG 808 ==
LOC: C.EDB 18:37 → C.4E 23:09 → EDBEDREQ 23:15 → EDBEDREQSVC 23:20 → ENRESERV 23:27
PROVIDERS: ADMIT Hospitalist; ATTEND Hospitalist
DX: D70.9 Neutropenia, unspecified (principal); J18.9 Pneumonia, unspecified organism; J10.00 Influenza due to other identified influenza virus with unspecified type of pneumonia; E87.1 Hypo-osmolality and hyponatremia; C85.80 Other specified types of non-Hodgkin lymphoma, unspecified site; K21.9 Gastro-esophageal reflux disease without esophagitis; D64.81 Anemia due to antineoplastic chemotherapy; G62.9 Polyneuropathy, unspecified; Z79.899 Other long term (current) drug therapy; Z88.1 Allergy status to other antibiotic agents; Z88.8 Allergy status to other drugs, medicaments and biological substances

== ENCOUNTER → 2017-06-07 | Outpatient (CLI) | payer OTHER ==
[~2017-06-07] MED LIST changes: +AMOX875T PO; +LEVO1TAB33 PO; -NUTR-25 PO
[2017-06-07 12:34] LABS: MEAN CORPUSCULAR HGB CONC 34.1 g/dl (32-36); MEAN PLATELET VOLUME 9.5 fL (7.4-10.4); PLATELET COUNT 32 K/uL (130-400)
[2017-06-07 12:39] LABS: HEMATOCRIT 24.6 % (42-52); HEMOGLOBIN 8.4 g/dL (14.0-18.0); MEAN CELL VOLUME 87.9 fL (80-100); RED CELL DISTRIBUTION WIDTH SD 51.4 fL (36.4-46.3); WHITE BLOOD COUNT 0.05 K/uL (4.8-10.8)
== END | disposition home or self-care (01) ==
LOC: C.LAB 11:53
PROVIDERS: ATTEND Student in an Organized Health Care Education/Training Program
DX: C85.10 Unspecified B-cell lymphoma, unspecified site (principal)

== ENCOUNTER → 2017-06-11 | Outpatient (CLI) | payer OTHER | END | disposition home or self-care (01) | LOC: C.LABSPEC 16:51 | PROVIDERS: ATTEND Podiatrist Foot & Ankle Surgery | DX: L60.0 Ingrowing nail (principal) ==

== ENCOUNTER → 2017-06-17 | Outpatient (CLI) | payer OTHER ==
[~2017-06-17] MED LIST changes: -AMOX875T PO
[2017-06-17 13:07] LABS: HEMATOCRIT 23.3 % (42-52); HEMOGLOBIN 8.1 g/dL (14.0-18.0); MEAN CELL VOLUME 88.3 fL (80-100); MEAN CORPUSCULAR HEMOGLOBIN 30.7 pg (25-34); MEAN CORPUSCULAR HGB CONC 34.8 g/dl (32-36); RED CELL DISTRIBUTION WIDTH CV 16.8 % (11.5-14.5); RED CELL DISTRIBUTION WIDTH SD 51.4 fL (36.4-46.3); WHITE BLOOD COUNT 3.42 K/uL (4.8-10.8)
[2017-06-17 13:12] LABS: MEAN PLATELET VOLUME 9.5 fL (7.4-10.4); PLATELET COUNT 51 K/uL (130-400)
[2017-06-17 13:27] LABS: ALT/SGPT 12 U/L (12-78); AST/SGOT 8 U/L (15-37); BLOOD UREA NITROGEN 28 mg/dl (7-18); CALCIUM 9.6 mg/dl (8.5-10.1); CARBON DIOXIDE 26 mmol/L (21-32); CREATININE 1.36 mg/dl (0.60-1.40); GLUCOSE 113 mg/dl (70-99); POTASSIUM 4.4 mmol/L (3.5-5.1); SODIUM 138 mmol/L (136-145)
[2017-06-17 13:32] LABS: ALKALINE PHOSPHATASE 104 U/L (45-117); IG# 0.03 K/uL (0.00-0.02); LYMPH % 3.8 %; LYMPH ABS # 0.13 K/uL (1.2-3.4); MONO % 7.9 %; MONO ABS # 0.27 K/uL (0.11-0.59); NEUT % 87.4 %; NEUT ABS # 2.99 K/uL (1.4-6.5); TOTAL PROTEIN 6.8 gm/dl (6.4-8.2)
== END | disposition home or self-care (01) ==
LOC: C.LABSPEC 11:42
PROVIDERS: ATTEND Internal Medicine Hematology & Oncology
DX: C83.30 Diffuse large B-cell lymphoma, unspecified site (principal)

== ENCOUNTER → 2017-06-24 | Outpatient (CLI) | payer OTHER ==
[2017-06-24 15:42] LABS: ALBUMIN 2.8 gm/dl (3.4-5.0); ALT/SGPT 15 U/L (12-78); AST/SGOT 13 U/L (15-37); BLOOD UREA NITROGEN 25 mg/dl (7-18); CALCIUM 9.1 mg/dl (8.5-10.1); CARBON DIOXIDE 27 mmol/L (21-32); CREATININE 1.74 mg/dl (0.60-1.40); GLUCOSE 89 mg/dl (70-99); POTASSIUM 4.7 mmol/L (3.5-5.1); SODIUM 134 mmol/L (136-145)
[2017-06-24 15:45] LABS: ALKALINE PHOSPHATASE 94 U/L (45-117); TOTAL PROTEIN 6.5 gm/dl (6.4-8.2)
[2017-06-24 16:02] LABS: HEMATOCRIT 19.9 % (42-52); HEMOGLOBIN 6.6 g/dL (14.0-18.0); MEAN CELL VOLUME 91.7 fL (80-100); MEAN CORPUSCULAR HEMOGLOBIN 30.4 pg (25-34); MEAN CORPUSCULAR HGB CONC 33.2 g/dl (32-36); MEAN PLATELET VOLUME 8.7 fL (7.4-10.4); PLATELET COUNT 130 K/uL (130-400); RED CELL DISTRIBUTION WIDTH SD 57.3 fL (36.4-46.3); WHITE BLOOD COUNT 1.38 K/uL (4.8-10.8)
[2017-06-24 16:05] LABS: LYMPH % 20.3 %; LYMPH ABS # 0.28 K/uL (1.2-3.4); MONO % 38.4 %; MONO ABS # 0.53 K/uL (0.11-0.59); NEUT % 41.3 %; NEUT ABS # 0.57 K/uL (1.4-6.5)
== END | disposition home or self-care (01) ==
LOC: C.LAB 17:21
PROVIDERS: ATTEND Internal Medicine Hematology & Oncology
DX: C83.35 Diffuse large B-cell lymphoma, lymph nodes of inguinal region and lower limb (principal)

== ENCOUNTER → 2017-07-01 | Outpatient (CLI) | payer OTHER ==
[~2017-07-01] MED LIST changes: -CEFP200T14 PO; +GADAVIST IV PRN; -LEVO1TAB33 PO; -TMF75 PO
--- NOTE | 2017-07-01 14:18 | DIAGNOSTIC IMAGING REPORT ---
MRI OF THE BRAIN COMBO CLINICAL HISTORY: Lymphoma. Headache. COMPARISON STUDY: MRI of the brain dated 01/03/2017. TECHNIQUE: MRI of the brain was performed utilizing various T1 and T2-weighted sequences in the axial, sagittal, and coronal planes. Contrast-enhanced sequences were acquired following the administration of 8.5 cc of Gadavist. FINDINGS: Brain parenchyma: The brain parenchyma is normal in appearance. There is no hemorrhage or mass effect. There is no restricted diffusion to suggest acute ischemia. No enhancing mass lesion is identified on the postcontrast images. Melara-white matter differentiation is preserved. No extra-axial fluid collection is seen. The cerebellar tonsils are normal in configuration. Ventricles, sulci, and cisterns: Normal in configuration. Pituitary and sella: Partially empty sella is incidentally noted. Intracranial vasculature: Normal flow voids are maintained at the skull base. Orbits: The bony orbits are grossly intact. Orbital contents are normal in appearance. Sinuses and mastoids: Mild mucosal thickening is seen within the maxillary antra. Trace mucosal thickening and fluid is seen in the sphenoid sinuses. Mild mucosal thickening is also seen in the ethmoid sinuses. The mastoid air cells are clear. Calvarium: Unremarkable. Cervical cord: Partially visualized cervical spinal cord is normal in morphology and signal intensity. IMPRESSION: No acute intracranial abnormality. Specifically, there is no MR evidence of intracranial metastatic disease. Electronically signed by: Antoine Kennedy M.D. 07/01/2017 2:17 PM Dictated Date/Time: 07/01/2017 2:13 PM
== END | disposition home or self-care (01) ==
LOC: C.MRI 13:30
PROVIDERS: ATTEND Internal Medicine Hematology & Oncology
DX: C83.30 Diffuse large B-cell lymphoma, unspecified site (principal); R51 Headache

== ENCOUNTER → 2017-07-08 | Outpatient (CLI) | payer OTHER ==
[~2017-07-08] MED LIST changes: -GADAVIST IV PRN
[2017-07-08 12:18] LABS: HEMATOCRIT 27.7 % (42-52); HEMOGLOBIN 9.3 g/dL (14.0-18.0); MEAN CELL VOLUME 91.4 fL (80-100); MEAN CORPUSCULAR HEMOGLOBIN 30.7 pg (25-34); MEAN CORPUSCULAR HGB CONC 33.6 g/dl (32-36); MEAN PLATELET VOLUME 8.3 fL (7.4-10.4); PLATELET COUNT 206 K/uL (130-400); RED CELL DISTRIBUTION WIDTH CV 18.1 % (11.5-14.5); RED CELL DISTRIBUTION WIDTH SD 59.2 fL (36.4-46.3); WHITE BLOOD COUNT 5.28 K/uL (4.8-10.8)
[2017-07-08 12:46] LABS: BASO % 0.4 %; BASO ABS # 0.02 K/uL (0-0.2); EOS % 0.4 %; EOS ABS # 0.02 K/uL (0-0.5); IG# 0.13 K/uL (0.00-0.02); LYMPH % 16.3 %; LYMPH ABS # 0.86 K/uL (1.2-3.4); MONO % 23.3 %; MONO ABS # 1.23 K/uL (0.11-0.59); NEUT % 57.1 %; NEUT ABS # 3.02 K/uL (1.4-6.5)
[2017-07-08 12:57] LABS: ALBUMIN 3.3 gm/dl (3.4-5.0); ALT/SGPT 15 U/L (12-78); AST/SGOT 17 U/L (15-37); BLOOD UREA NITROGEN 37 mg/dl (7-18); CALCIUM 8.9 mg/dl (8.5-10.1); CARBON DIOXIDE 27 mmol/L (21-32); CREATININE 1.61 mg/dl (0.60-1.40); GLUCOSE 91 mg/dl (70-99); POTASSIUM 4.6 mmol/L (3.5-5.1); SODIUM 132 mmol/L (136-145)
[2017-07-08 13:00] LABS: ALKALINE PHOSPHATASE 85 U/L (45-117); TOTAL PROTEIN 6.4 gm/dl (6.4-8.2)
== END | disposition home or self-care (01) ==
LOC: C.LAB 13:31
PROVIDERS: ATTEND Internal Medicine Hematology & Oncology
DX: C83.30 Diffuse large B-cell lymphoma, unspecified site (principal)

== ENCOUNTER → 2017-07-12 | Outpatient (CLI) | payer OTHER ==
[2017-07-12 15:37] LABS: HEMATOCRIT 26.3 % (42-52); HEMOGLOBIN 8.9 g/dL (14.0-18.0); MEAN CELL VOLUME 93.3 fL (80-100); MEAN CORPUSCULAR HEMOGLOBIN 31.6 pg (25-34); MEAN CORPUSCULAR HGB CONC 33.8 g/dl (32-36); MEAN PLATELET VOLUME 8.4 fL (7.4-10.4); PLATELET COUNT 266 K/uL (130-400); RED CELL DISTRIBUTION WIDTH CV 18.2 % (11.5-14.5); RED CELL DISTRIBUTION WIDTH SD 61.7 fL (36.4-46.3); WHITE BLOOD COUNT 3.53 K/uL (4.8-10.8)
[2017-07-12 15:50] LABS: PTT PATIENT 35.2 SECONDS (21.0-31.0)
[2017-07-12 16:25] LABS: ALBUMIN 3.2 gm/dl (3.4-5.0); ALT/SGPT 15 U/L (12-78); AST/SGOT 15 U/L (15-37); BLOOD UREA NITROGEN 34 mg/dl (7-18); CALCIUM 9.4 mg/dl (8.5-10.1); CARBON DIOXIDE 28 mmol/L (21-32); CREATININE 1.57 mg/dl (0.60-1.40); GLUCOSE 73 mg/dl (70-99); POTASSIUM 4.1 mmol/L (3.5-5.1); SODIUM 131 mmol/L (136-145)
[2017-07-12 16:37] LABS: ALKALINE PHOSPHATASE 90 U/L (45-117); TOTAL PROTEIN 6.8 gm/dl (6.4-8.2)
[2017-07-12 16:52] LABS: HEP C IGG 13 YRS+OLDER_RFLX NEG (NEG)
[2017-07-12 16:54] LABS: BASO % 0.3 %; BASO ABS # 0.01 K/uL (0-0.2); EOS % 1.4 %; EOS ABS # 0.05 K/uL (0-0.5); IG# 0.01 K/uL (0.00-0.02); LYMPH % 8.2 %; LYMPH ABS # 0.29 K/uL (1.2-3.4); MONO % 13.3 %; MONO ABS # 0.47 K/uL (0.11-0.59); NEUT % 76.5 %
[2017-07-16 09:45] LABS: ANA SCREEN TC 249X NEGATIVE (NEGATIVE); HEPATITIS B CORE IGM TC51854R NON-REACTIVE (NON-REACTIVE)
== END | disposition home or self-care (01) ==
LOC: C.LAB 14:06
PROVIDERS: ATTEND Internal Medicine Hematology & Oncology
DX: C85.90 Non-Hodgkin lymphoma, unspecified, unspecified site (principal); Z88.1 Allergy status to other antibiotic agents

== ENCOUNTER → 2017-08-04 | Outpatient (CLI) | payer OTHER ==
[2017-08-04 18:53] LABS: BASO % 0.3 %; BASO ABS # 0.01 K/uL (0-0.2); EOS % 6.2 %; EOS ABS # 0.18 K/uL (0-0.5); HEMATOCRIT 27.7 % (42-52); HEMOGLOBIN 9.2 g/dL (14.0-18.0); LYMPH % 19.9 %; LYMPH ABS # 0.58 K/uL (1.2-3.4); MEAN CELL VOLUME 94.5 fL (80-100); MEAN CORPUSCULAR HEMOGLOBIN 31.4 pg (25-34); MEAN CORPUSCULAR HGB CONC 33.2 g/dl (32-36); MEAN PLATELET VOLUME 8.2 fL (7.4-10.4); MONO % 15.8 %; MONO ABS # 0.46 K/uL (0.11-0.59); NEUT % 57.8 %; NEUT ABS # 1.69 K/uL (1.4-6.5); PLATELET COUNT 201 K/uL (130-400); RED CELL DISTRIBUTION WIDTH CV 18.4 % (11.5-14.5); RED CELL DISTRIBUTION WIDTH SD 64.1 fL (36.4-46.3); WHITE BLOOD COUNT 2.92 K/uL (4.8-10.8)
[2017-08-04 19:17] LABS: BLOOD UREA NITROGEN 35 mg/dl (7-18); CALCIUM 9.1 mg/dl (8.5-10.1); CARBON DIOXIDE 26 mmol/L (21-32); CREATININE 1.65 mg/dl (0.60-1.40); GLUCOSE 99 mg/dl (70-99); POTASSIUM 4.2 mmol/L (3.5-5.1); SODIUM 136 mmol/L (136-145)
--- NOTE | 2017-08-23 08:28 | CODING QUERY NO DIAGNOSIS ---
: 81 TREATMENT RENDERED WITHOUT A DIAGNOSIS To promote full compliance with coding requirements relating to patient care, physician participation is requested in all cases of collection specialist uncertainty. Please assist us with providing a diagnosis/symptom for the test(s) below: A diagnosis/symptom was not documented on your Order. A valid diagnosis/symptom is required to bill all insurances. Please remember that we are unable to code a diagnosis of rule out, probable, possible, questionable, or suspected. Tests that require a diagnosis: DOS: 08/04/17 * PRP DIAGNOSIS: * CBC WITH AUTO DIFF DIAGNOSIS: Provider Signature: Date: Thank you Usha Lobo Health Information Management Once completed, please kindly fax back to [phone] For questions please call [phone]
== END | disposition home or self-care (01) ==
LOC: C.LAB 18:35
PROVIDERS: ATTEND Internal Medicine Hematology & Oncology
DX: C83.30 Diffuse large B-cell lymphoma, unspecified site (principal); Z88.1 Allergy status to other antibiotic agents; Z88.8 Allergy status to other drugs, medicaments and biological substances

== ENCOUNTER → 2017-11-13 | Outpatient (CLI) | payer OTHER ==
[~2017-11-13] MED LIST changes: +FLUC200T4 PO; +LDDP5 TD; +MBXC PO; +NYSS5 PO; +ONDA-170 PO; +OXYC-737 PO; -OXYC1TAB3 PO
--- NOTE | 2017-11-13 15:13 | DIAGNOSTIC IMAGING REPORT ---
ABDOMINAL ULTRASOUND, RIGHT UPPER QUADRANT HISTORY: Right upper quadrant abdominal pain. Lymphoma. Acute elevation of transaminases and alkaline phosphatase. COMPARISON: PET/CT January 16, [address] May 13, 2017. Renal ultrasound November 30, 2016. FINDINGS: There has been interval development of marked heterogeneity of the liver with innumerable small hypoechoic foci since ultrasound of November 30, 2016. These hypoechoic foci measure up to 1.1 cm. The liver is also enlarged. No biliary ductal dilatation is identified. The common bile duct measures 4 mm in caliber. No gallstones are noted. There is mild gallbladder wall thickening. No pericholecystic fluid is noted. The gallbladder is not distended. Right kidney is atrophic. Right hydronephrosis persists. This was shown on exam of November 30, 2016. IMPRESSION: 1. Interval development of hepatomegaly and marked heterogeneity of the liver with innumerable small hypoechoic foci. 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 Diffuse liver disease or microabscesses could appear similar although are considered less likely. 2. Mild gallbladder wall thickening, a nonspecific finding. No gallstones. 3. Right renal atrophy which has developed since exam of November 30, 2016. Right hydronephrosis which was present on previous study. Electronically signed by: Anderson Randhawa M.D. 11/13/2017 3:12 PM Dictated Date/Time: 11/13/2017 2:59 PM
== END | disposition home or self-care (01) ==
LOC: C.ULTRBC 14:23
PROVIDERS: ATTEND Internal Medicine Hematology & Oncology
DX: C83.35 Diffuse large B-cell lymphoma, lymph nodes of inguinal region and lower limb (principal); R16.0 Hepatomegaly, not elsewhere classified; N26.1 Atrophy of kidney (terminal)

== ENCOUNTER 2017-11-16 18:42 | Inpatient (IN) | payer OTHER ==
[~2017-11-16] VITALS: Ht 185.4 cm; Wt 97.3 kg
[~2017-11-16 18:42] MED LIST changes: -FLUC200T4 PO; -LDDP5 TD; -MBXC PO; -NYSS5 PO; -ONDA-170 PO
[2017-11-16] MEDS ORDERED: SODIUM CHLORIDE 0.9% 1000ML 1,000 ML IV ONE (18:53)
[2017-11-16] MEDS ORDERED: SODIUM CHLORIDE 0.9% 1000ML 1,000 ML IV STA (18:53)
[2017-11-16] MEDS ORDERED: ACETAMINOPHEN 500 MG TAB PO STA (19:24)
--- NOTE | 2017-11-16 19:31 | EMERGENCY ROOM VISIT NOTE ---
History Report prepared by Alie: Reese Alexandra Under the Supervision of: Dr. William Lazaro M.D. First contact with patient: 18:48 Chief Complaint: FEVER Stated Complaint: FEVER, ANGLICAN HEADACHE, CANCER PT History of Present Illness The patient is a 32 year old male who presents to the Emergency Room with complaints of fever and headache beginning yesterday. 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 He states he had chemotherapy yesterday and since has had a fever and a headache that he currently rates as 3/ 10 in severity. He reports that locally he sees Dr. Carbone and also receives treatment in [place] under Dr. Sosa. He denies cough, vomiting, diarrhea, chest pain, shortness of breath, or blood in the urine or stool. He states that he currently feels constipated. The patient reports that he has had echocardiograms and EKGs in the past that showed no problems. Source of History: patient Onset: yesterday Position: head, other (global fever) Symptom Intensity: 3/10 headache Quality: other (fever and headache) Associated Symptoms: No cough, No chest pain, No SOB, No vomiting, No melena , No hematochezia, No diarrhea, No urinary symptoms Review of Systems See HPI for pertinent positives and negatives. A total of ten systems were reviewed and were otherwise negative. Past Medical & Surgical Medical Problems: (1) Anemia (2) GERD (gastroesophageal reflux disease) (3) Hypotension (4) Lymphoma (5) Neutropenic fever (6) Neutropenic fever (7) Sore throat Surgical Problems: (1) History of liver biopsy Family History Cancer Heart disease Social History Smoking Status: Never Smoker Drug Use: none Marital Status: Housing Status: lives with significant other Occupation Status: employed Current/Historical Medications Scheduled Acyclovir (Zovirax), 800 MG PO BID Cetirizine Hcl (Cetirizine Hcl), 10 MG PO DAILY Dexlansoprazole (Dexilant), 60 MG PO QAM Docusate Sodium (Docusate Sodium), 100 MG PO QAM Docusate Sodium (Docusate Sodium), 200 MG PO HS Escitalopram Oxalate (Lexapro), 20 MG PO QAM Fluconazole (Diflucan), 400 MG PO QAM Gabapentin (Gabapentin), 600 MG PO TID Methadone Hcl (Dolophine), 20 MG PO Q8 Sennosides (Senna-Lax), 2 TABS PO AMHS Sulfa/Trimethoprim (Bactrim Ds 800MG/160MG), 1 TAB PO 3XWK Scheduled PRN Bisacodyl (Bisacodyl), 2 TAB PO HS PRN for Constipation Dexlansoprazole (Dexilant), 30 MG PO HS PRN for gerd Dronabinol (Marinol), 5 MG PO TIDM PRN for IMPROVED APPETITE Lorazepam (Ativan), 1 MG PO HS PRN for Anxiety Ondansetron Hcl (Zofran), 8 MG PO Q8 PRN for Nausea Oxycodone Immediate Rel Tab (Roxicodone Ir), 10-15 MG PO Q4 PRN for Pain Allergies Coded Allergies: Erythromycin (Verified Adverse Reaction, Intermediate, GI SYMPTOMS, 06/25/17 ) Prochlorperazine (Verified Adverse Reaction, Unknown, change in mental status, 06/25/17) Physical Exam Vital Signs Date Time Temp Pulse Resp B/P (MAP) Pulse Ox O2 Delivery O2 Flow Rate FiO2 11/16/17 20:02 90 110/61 98 Room Air 11/16/17 19:04 116 11/16/17 19:01 99 Room Air 11/16/17 18:45 39.5 120 18 99/58 100 Room Air Physical Exam Physical Exam GENERAL: He is oriented to person, place, and time. He appears well-developed and well-nourished. He does not appear distressed. HENT: Exam performed. Head: Normocephalic and atraumatic. Right Ear: External ear normal. No mastoid tenderness. Left Ear: External ear normal. No mastoid tenderness. Mouth/Throat: The oropharynx is clear and moist. No trismus in the jaw. No dental abscesses or uvula swelling. No oropharyngeal exudate or tonsillar abscesses. EYES: Conjunctivae and EOM are normal. Pupils are equal, round, and reactive to light. Right eye exhibits no discharge. Left eye exhibits no discharge. No scleral icterus. NECK: Normal range of motion. Neck supple. No JVD present. No spinous process tenderness present. No carotid bruit present. No rigidity. No tracheal deviation and normal range of motion present. No Brudzinski's sign and no Kernig 's sign noted. CV: Tachycardic rate, regular rhythm, normal heart sounds and intact distal pulses. There is no peripheral edema. Palpable radial pulses bue. PULM/CHEST: Port on the right side of the chest, no overlying erythema. Effort normal and breath sounds normal. No respiratory distress. No stridor. He has no wheezes. He has no rales. Chest Wall: He exhibits no tenderness. ABD: The abdomen is soft. Bowel sounds are normal. He has no distension. No mass is present. There is no tenderness. There is no rebound, no guarding, no Moya's sign and no tenderness at McBurney's point. Rovsig negative. MUSC/SKEL: Normal range of motion. There is no peripheral edema, tenderness or deformity. LYMPH: No cervical adenopathy. NEURO: He is alert and oriented to person, place, and time. He has normal strength. No cranial nerve deficit or sensory deficit. Coordination and gait normal. GCS eye subscore is 4. GCS verbal subscore is 5. GCS motor subscore is 6. Cerebellar tests wnl. SKIN: Skin is warm and dry. He is not diaphoretic. PSYCH: He has a normal mood and affect. Behavior is normal. Judgment and thought content normal. Medical Decision & Procedures ER Provider Diagnostic Interpretation: Radiology results as stated below per my review and radiologist interpretation: CT SCAN OF THE ABDOMEN AND PELVIS WITHOUT CONTRAST CLINICAL HISTORY: Abnormal LFTs, neutropenic fever, abnormal ultrasound. COMPARISON STUDY: Ultrasound study dated 11/13/2017, PET/CT scan dated 01/16/2016 TECHNIQUE: CT scan of the abdomen and pelvis was performed from the lung bases to the proximal femurs. Images are reviewed in the axial, sagittal, and coronal planes. IV contrast was not administered for this examination. A dose lowering technique was utilized adhering to the principles of ALARA. CT DOSE: 942.99 mGy.cm FINDINGS: Lower chest: There is a small left pleural effusion. There is a 5.4 cm left lower lobe pulmonary mass. There is mild nodular pleural thickening at the left base. There is partial absence of the left 10th and 11th ribs. There are permeative changes present within the 10th 11th and 12th ribs on the left. Liver: Evaluation the liver is limited due to the lack of intravenously administered contrast. No focal hepatic masses are visualized. The multiple hypodense hepatic masses described on the ultrasound are difficult to perceive on this noncontrast study. The liver is enlarged measuring 26 cm. Gallbladder: Unremarkable. Spleen: Normal in size and attenuation. Pancreas: Unremarkable. Adrenal glands: Unremarkable. Kidneys: There is right-sided hydronephrosis. There are calcified right renal masses measuring up to 23 mm in diameter. There is a contour deformity of the left kidney possibly telecommunications sales representative of a left renal mass. Bowel: There is mild fecal retention. There are no transition zones indicate bowel obstruction. There is no evidence of acute diverticulitis. There is no evidence of acute appendicitis. Peritoneum: There is no free air. There is a small amount of free pelvic fluid. Vasculature: The abdominal aorta is normal in course and caliber. Adenopathy: There are partially calcified enlarged left para-aortic lymph nodes measuring up to 27 mm in diameter. Pelvic viscera: The bladder, and pelvic viscera are unremarkable. Skeletal structures: There are mixed lytic and blastic changes within the T12 vertebra. IMPRESSION: 1. Technically limited study secondary to the absence of intravenous contrast. 2. 5.4 cm left lower lobe pulmonary mass suspicious for neoplasm 3. Small left pleural effusion. Nodular pleural thickening on the left. Destructive changes involving the left 10th 11th and 12th ribs. Mixed lytic and blastic changes involving the T12 vertebra. 4. Right-sided hydronephrosis. Multiple partially calcified right renal masses 5. Contour deformity of the left kidney possibly secondary to a renal mass. 6. Pathologic partially calcified left para-aortic lymphadenopathy 7. Hepatomegaly. The innumerable hepatic masses described in the region ultrasound study are difficult to discern on this noncontrast examination. 8. Given the patient's clinical history and ultrasound findings, recurrent lymphoma is considered the diagnosis of exclusion Electronically signed by: Mikal Phan M.D. 11/16/2017 9:24 PM Dictated Date/Time: 11/16/2017 9:09 PM CHEST ONE VIEW PORTABLE CLINICAL HISTORY: Sepsis COMPARISON STUDY: 06/02/2017 FINDINGS: The cardiac and mediastinal contours remain stable. A right-sided A-Port catheter is again visualized. There is a progressive left lower lobe 6 cm mass/consolidation. There are no significant pleural effusions. IMPRESSION: Progressive 6 cm left lower lobe mass/consolidation Electronically signed by: Mikal Phan M.D. 11/16/2017 7:30 PM Dictated Date/Time: 11/16/2017 7:27 PM Laboratory Results 11/16/17 18:53 Red Blood Count 2.48, Mean Corpuscular Volume 105.6, Mean Corpuscular Hemoglobin 35.1, Mean Corpuscular Hemoglobin Concent 33.2, Mean Platelet Volume 10.2, Neutrophils (%) (Auto) 79.6, Lymphocytes (%) (Auto) 18.5, Monocytes (%) ( Auto) 1.9, Eosinophils (%) (Auto) 0.0, Basophils (%) (Auto) 0.0, Neutrophils # ( Auto) 0.43, Lymphocytes # (Auto) 0.10, Monocytes # (Auto) 0.01, Eosinophils # ( Auto) 0.00, Basophils # (Auto) 0.00 11/16/17 18:53 Test 11/16/17 18:53 11/16/17 19:09 White Blood Count 0.54 K/uL (4.8-10.8) Red Blood Count 2.48 M/uL (4.7-6.1) Hemoglobin 8.7 g/dL (14.0-18.0) Hematocrit 26.2 % (42-52) Mean Corpuscular Volume 105.6 fL (80-100) Mean Corpuscular Hemoglobin 35.1 pg (25-34) Mean Corpuscular Hemoglobin Concent 33.2 g/dl (32-36) Platelet Count 54 K/uL (130-400) Mean Platelet Volume 10.2 fL (7.4-10.4) Neutrophils (%) (Auto) 79.6 % Lymphocytes (%) (Auto) 18.5 % Monocytes (%) (Auto) 1.9 % Eosinophils (%) (Auto) 0.0 % Basophils (%) (Auto) 0.0 % Neutrophils # (Auto) 0.43 K/uL (1.4-6.5) Lymphocytes # (Auto) 0.10 K/uL (1.2-3.4) Monocytes # (Auto) 0.01 K/uL (0.11-0.59) Eosinophils # (Auto) 0.00 K/uL (0-0.5) Basophils # (Auto) 0.00 K/uL (0-0.2) RDW Standard Deviation 74.3 fL (36.4-46.3) RDW Coefficient of Variation 19.4 % (11.5-14.5) Immature Granulocyte % (Auto) 0.0 % Immature Granulocyte # (Auto) 0.00 K/uL (0.00-0.02) Prothrombin Time 10.4 SECONDS (9.0-12.0) Prothromb Time International Ratio 1.0 (0.9-1.1) Activated Partial Thromboplast Time 27.1 SECONDS (21.0-31.0) Partial Thromboplastin Ratio 1.0 Anion Gap 9.0 mmol/L (3-11) Est Creatinine Clear Calc Drug Dose 68.1 ml/min Estimated GFR () 51.8 Estimated GFR (Non- 44.7 BUN/Creatinine Ratio 26.8 (10-20) Calcium Level 8.4 mg/dl (8.5-10.1) Total Bilirubin 0.5 mg/dl (0.2-1) Aspartate Amino Transf (AST/SGOT) 159 U/L (15-37) Alanine Aminotransferase (ALT/SGPT) 160 U/L (12-78) Alkaline Phosphatase 309 U/L (45-117) Total Protein 5.8 gm/dl (6.4-8.2) Albumin 2.7 gm/dl (3.4-5.0) Globulin 3.1 gm/dl (2.5-4.0) Albumin/Globulin Ratio 0.9 (0.9-2) Procalcitonin 1.18 ng/ml (0-0.5) Bedside Lactic Acid Venous 1.44 mmol/L (0.90-1.70) Laboratory results reviewed by me Medications Administered Medications (Trade) Dose Ordered Sig/Sidney Route Start Time Stop Time Status Last Admin Dose Admin Sodium Chloride 1,000 ml @ 999 mls/hr Q1H1M ONCE IV 11/16/17 18:53 11/16/17 19:53 DC 11/16/17 19:02 999 MLS/HR Sodium Chloride 1,000 ml @ 999 mls/hr Q1H1M STAT IV 11/16/17 18:53 11/16/17 19:53 DC 11/16/17 19:02 999 MLS/HR Acetaminophen (Tylenol Tab) 1,000 mg NOW STAT PO 11/16/17 19:24 11/16/17 19:25 DC 11/16/17 19:30 1,000 MG Cefepime HCl 1000 mg/Dextrose 111 ml @ 200 mls/hr NOW STAT IV 11/16/17 19:59 11/16/17 20:32 DC 11/16/17 20:20 200 MLS/HR Vancomycin HCl 2500 mg/Sodium Chloride 550 ml @ 200 mls/hr TODAY@2100 IV 11/16/17 21:00 11/16/17 23:44 11/16/17 20:55 200 MLS/HR ECG Per My Interpretation Indication: other (fever, headache) Rate (beats per minute): 87 Rhythm: sinus rhythm Findings: other ([place], QRS and QTC intervals within normal limits. No ST elevation or depression.) ED Course 1849: The patient was evaluated in room A3. A complete history and physical exam was performed. Code sepsis was called and IV bolus was immediately started. The patient was placed on a monitor. 1852: Ordered Sodium Chloride 1000 ml @ 999 mls/hr IV, Sodium Chloride 1000 ml @ 999 mls/hr IV. 1923: Ordered Tylenol 1000 mg PO 1957: I updated with the patient. His blood pressure has improved to 111/50, and his tachycardia has improved, ranging between 100 and 110 beats per minute status post 2 L IV fluids. Labs show lactic acid within normal limits. WBC count is 0.54, and ANC is 0.43. Creatinine 1.91 at baseline. I spoke with his oncologist, Dr. Sosa of [place], on his cell phone. He recommends that the patient be admitted for sepsis and neutropenic fever. He also recommends to give the patient 1 g of Cefepime. 1958: Ordered Cefepime HCl 1000 mg/Dextrose 111 ml @ 200 mls/hr IV 2021: I spoke with Dr. Reina - [facility] Hospitalist. He will reevaluate the patient for hospitalization. Medical Decision 1849: The patient was evaluated in room A3. A complete history and physical exam was performed. Code sepsis was called and IV bolus was immediately started. The patient was placed on a monitor. 3: Ordered Sodium Chloride 1000 ml @ 999 mls/hr IV, Sodium Chloride 1000 ml @ 999 mls/hr IV. 1923: Ordered Tylenol 1000 mg PO 1957: I updated with the patient. His blood pressure has improved to 111/50, and his tachycardia has improved, ranging between 100 and 110 beats per minute status post 2 L IV fluids. Labs show lactic acid within normal limits. WBC count is 0.54, and ANC is 0.43. Creatinine 1.91 at baseline. I spoke with his oncologist, Dr. Sosa of [place], on his cell phone. He recommends that the patient be admitted for sepsis and neutropenic fever. He also recommends to give the patient 1 g of Cefepime. 1958: Ordered Cefepime HCl 1000 mg/Dextrose 111 ml @ 200 mls/hr IV 2021: I spoke with Dr. Reina - [facility] Hospitalist. He will reevaluate the patient for hospitalization. Medication Reconcilliation Current Medication List: was personally reviewed by me Blood Pressure Screening Patient's blood pressure: Low blood pressure referred to hospitalist Consults Time Called: 1957 Consulting Physician: Dr. Sosa - Oncology Returned Call: 1957 I spoke with his oncologist, Dr. Sosa of [facility], on his cell phone. He recommends that the patient be admitted for sepsis and neutropenic fever. He also recommends to give the patient 1 g of Cefepime. Additional Consults: Time Called: 2017 Consulted Physician: Dr. Nuno Manzo [facility] Hospitalist Returned Call: 2021 Additional Comments: I spoke with Dr. Reina [facility] Hospitalist. He will reevaluate the patient for hospitalization. Impression Primary Impression: Neutropenic fever Critical Care I have personally spent greater than 84 minutes of critical care time in the direct management of this patient. This includes bedside care, interpretation of diagnostic studies, and testing, discussion with consultants, patient, and family members, and other required patient management activities. This 84 minutes is in excess of all separately billable procedures. Scribe Attestation The scribe's documentation has been prepared under my direction and personally reviewed by me in its entirety. I confirm that the note above accurately reflects all work, treatment, procedures, and medical decision making performed by me. The chart was completed utilizing [employer] Speech voice recognition software. Grammatical errors, random word insertions, pronoun errors, and incomplete sentences are an occasional consequence of this system due to software limitations, ambient noise, and hardware issues. Any formal questions or concerns about the content, text, or information contained within the body of this dictation should be directly addressed to the physician for clarification. Departure Information Dispostion Being Evaluated By Hospitalist Referrals Dorian Franz M.D. (PCP) Patient Instructions My [facility]
[2017-11-16 19:33] LABS: PTT PATIENT 27.1 SECONDS (21.0-31.0)
[2017-11-16] MEDS ORDERED: FLUC200T4 PO (19:51)
[2017-11-16 19:52] LABS: ALBUMIN 2.7 gm/dl (3.4-5.0); CALCIUM 8.4 mg/dl (8.5-10.1); CREATININE 1.91 mg/dl (0.60-1.40); POTASSIUM 4.8 mmol/L (3.5-5.1); TOTAL PROTEIN 5.8 gm/dl (6.4-8.2)
[2017-11-16] MEDS ORDERED: ONDA-170 PO (19:52)
[2017-11-16 19:55] LABS: HEMATOCRIT 26.2 % (42-52); HEMOGLOBIN 8.7 g/dL (14.0-18.0); LYMPH % 18.5 %; MEAN CELL VOLUME 105.6 fL (80-100); MEAN CORPUSCULAR HEMOGLOBIN 35.1 pg (25-34); MEAN CORPUSCULAR HGB CONC 33.2 g/dl (32-36); MEAN PLATELET VOLUME 10.2 fL (7.4-10.4); MONO % 1.9 %; MONO ABS # 0.01 K/uL (0.11-0.59); NEUT % 79.6 %; NEUT ABS # 0.43 K/uL (1.4-6.5); PLATELET COUNT 54 K/uL (130-400); RED CELL DISTRIBUTION WIDTH CV 19.4 % (11.5-14.5); RED CELL DISTRIBUTION WIDTH SD 74.3 fL (36.4-46.3); WHITE BLOOD COUNT 0.54 K/uL (4.8-10.8)
[2017-11-16] MEDS ORDERED: CEFEPIME IV 1,000 MG in DEXTROSE 5% 100ML 100 ML IV STA (19:59)
[2017-11-16] MEDS ORDERED: VANCOMYCIN CONSULT ACTIVE PRN (20:15)
[2017-11-16] MEDS ORDERED: VANCOMYCIN IV 2,500 MG in SODIUM CHLORIDE 0.9% 500ML 500 ML IV SCH (21:00)
[2017-11-16] MEDS ORDERED: DRONABINOL 2.5 MG CAP PO PRN (21:15)
[2017-11-16] MEDS ORDERED: OXYCODONE HCL IR 5 MG TAB (IMMEDIATE RELEASE) PO PRN (21:15)
[2017-11-16] MEDS ORDERED: MAGNESIUM HYDROXIDE SUSP 30 ML UDC PO PRN (21:15)
[2017-11-16] MEDS ORDERED: PANTOprazole SOD 40 MG TAB PO PRN (21:15)
[2017-11-16] MEDS ORDERED: ALUMINUM/MAGNESIUM/SIMETH (MAALOX MAX) 30 ML UDC PO PRN (21:15)
[2017-11-16] MEDS ORDERED: LORAZEPAM 1 MG TAB PO PRN (21:15)
[2017-11-16] MEDS ORDERED: ACETAMINOPHEN 325 MG TAB PO PRN (21:15)
[2017-11-16] MEDS ORDERED: BISACODYL 5 MG TABEC PO PRN (21:15)
--- NOTE | 2017-11-16 21:26 | DIAGNOSTIC IMAGING REPORT ---
CT SCAN OF THE ABDOMEN AND PELVIS WITHOUT CONTRAST CLINICAL HISTORY: Abnormal LFTs, neutropenic fever, abnormal ultrasound. COMPARISON STUDY: Ultrasound study dated 11/13/2017, PET/CT scan dated 01/16/2016 TECHNIQUE: CT scan of the abdomen and pelvis was performed from the lung bases to the proximal femurs. Images are reviewed in the axial, sagittal, and coronal planes. IV contrast was not administered for this examination. A dose lowering technique was utilized adhering to the principles of ALARA. CT DOSE: 942.99 mGy.cm FINDINGS: Lower chest: There is a small left pleural effusion. There is a 5.4 cm left lower lobe pulmonary mass. There is mild nodular pleural thickening at the left base. There is partial absence of the left 10th and 11th ribs. There are permeative changes present within the 10th 11th and 12th ribs on the left. Liver: Evaluation the liver is limited due to the lack of intravenously administered contrast. No focal hepatic masses are visualized. The multiple hypodense hepatic masses described on the ultrasound are difficult to perceive on this noncontrast study. The liver is enlarged measuring 26 cm. Gallbladder: Unremarkable. Spleen: Normal in size and attenuation. Pancreas: Unremarkable. Adrenal glands: Unremarkable. Kidneys: There is right-sided hydronephrosis. There are calcified right renal masses measuring up to 23 mm in diameter. There is a contour deformity of the left kidney possibly assisted sales representative of a left renal mass. Bowel: There is mild fecal retention. There are no transition zones indicate bowel obstruction. There is no evidence of acute diverticulitis. There is no evidence of acute appendicitis. Peritoneum: There is no free air. There is a small amount of free pelvic fluid. Vasculature: The abdominal aorta is normal in course and caliber. Adenopathy: There are partially calcified enlarged left para-aortic lymph nodes measuring up to 27 mm in diameter. Pelvic viscera: The bladder, and pelvic viscera are unremarkable. Skeletal structures: There are mixed lytic and blastic changes within the T12 vertebra. IMPRESSION: 1. Technically limited study secondary to the absence of intravenous contrast. 2. 5.4 cm left lower lobe pulmonary mass suspicious for neoplasm 3. Small left pleural effusion. Nodular pleural thickening on the left. Destructive changes involving the left 10th 11th and 12th ribs. Mixed lytic and blastic changes involving the T12 vertebra. 4. Right-sided hydronephrosis. Multiple partially calcified right renal masses 5. Contour deformity of the left kidney possibly secondary to a renal mass. 6. Pathologic partially calcified left para-aortic lymphadenopathy 7. Hepatomegaly. The innumerable hepatic masses described in the region ultrasound study are difficult to discern on this noncontrast examination. 8. Given the patient's clinical history and ultrasound findings, recurrent lymphoma is considered the diagnosis of exclusion Electronically signed by: Mikal Phan M.D. 11/16/2017 9:24 PM Dictated Date/Time: 11/16/2017 9:09 PM
--- NOTE | 2017-11-16 21:38 | History and Physical ---
History & Physical Date & Time of Service: Nov 16, 2017 at 20:53 Chief Complaint: Fever, Muslim Headache, Cancer Pt Primary Care Physician: Dorian Franz M.D. History of Present Illness Source: patient 32M with a PMHx of B Cell lymphoma currently on a new chemotherapy regimen presents with fever since 5pm and MARINO. Patient believes he has a neutropenic fever. He presents with his who assists in the history. He sees Dr. Elaine for management of his lymphoma. He takes scheduled Zofran, methadone and gabapentin which he would like continued as inpatient. He also has PRN Ativan which he would also like to keep on his med list as inpatient. He denies any cough, pain at present, or any specific site of infection. His temperature in the ER was measured at 39.5. Patient reports that he has only one functioning kidney and that his baseline creatinine is 1.8. Of note patient states that his liver enzymes have been elevated for the past 3 weeks, nobody knows why, they suspect that there might be some lymphoma infiltration of his kidney - pt recently had a liver ultrasound on 11/13 which does suggest hepatic infiltration. Per ER note, pt also receives treatment for lymphoma in [place] under Dr. Sosa. Past Medical/Surgical History Medical Problems: (1) Acute kidney injury (2) Anemia (3) Febrile neutropenia (4) Febrile neutropenia (5) Fever (6) Fever (7) GERD (gastroesophageal reflux disease) (8) Hypotension (9) Influenza (10) Influenza (11) Left-sided back pain (12) Lymphoma (13) Neutropenia (14) Neutropenic fever (15) Pancytopenia (16) Pancytopenia (17) Pancytopenia (18) Pneumonia (19) Recurrent lymphoma (20) Sore throat Surgical Problems: (1) History of liver biopsy Family History Cancer Heart disease Social History Smoking Status: Never Smoker Smokeless Tobacco Use: No Alcohol Use: none Drug Use: none Marital Status: Housing status: lives with family Occupational Status: employed Immunizations History of Influenza Vaccine: No History of Tetanus Vaccine?: Unknown History of Pneumococcal: Unknown History of Hepatitis B Vaccine: Unknown Allergies Coded Allergies: Erythromycin (Verified Adverse Reaction, Intermediate, GI SYMPTOMS, 06/25/17 ) Prochlorperazine (Verified Adverse Reaction, Unknown, change in mental status, 06/25/17) Home Medications Scheduled Acyclovir (Zovirax), 800 MG PO BID Cetirizine Hcl (Cetirizine Hcl), 10 MG PO DAILY Dexlansoprazole (Dexilant), 60 MG PO QAM Docusate Sodium (Docusate Sodium), 100 MG PO QAM Docusate Sodium (Docusate Sodium), 200 MG PO HS Escitalopram Oxalate (Lexapro), 20 MG PO QAM Fluconazole (Diflucan), 400 MG PO QAM Gabapentin (Gabapentin), 600 MG PO TID Methadone Hcl (Dolophine), 20 MG PO Q8 Sennosides (Senna-Lax), 2 TABS PO AMHS Sulfa/Trimethoprim (Bactrim Ds 800MG/160MG), 1 TAB PO 3XWK Scheduled PRN Bisacodyl (Bisacodyl), 2 TAB PO HS PRN for Constipation Dexlansoprazole (Dexilant), 30 MG PO HS PRN for gerd Dronabinol (Marinol), 5 MG PO TIDM PRN for IMPROVED APPETITE Lorazepam (Ativan), 1 MG PO HS PRN for Anxiety Ondansetron Hcl (Zofran), 8 MG PO Q8 PRN for Nausea Oxycodone Immediate Rel Tab (Roxicodone Ir), 10-15 MG PO Q4 PRN for Pain Review of Systems Constitutional: + fever, No chills, No sweats ENT: No hearing loss Respiratory: No cough, No sputum, No wheezing, No shortness of breath Cardiovascular: No chest pain Abdomen: + constipation, No pain, No nausea, No vomiting, No diarrhea Musculoskeletal: No joint pain Genitourinary - Male: No hematuria, No dysuria, No urinary hesitancy Neurologic: No memory loss Integumentary: No rash Physical Exam Vital Signs Date Time Temp Pulse Resp B/P (MAP) Pulse Ox O2 Delivery O2 Flow Rate FiO2 11/16/17 20:02 90 110/61 98 Room Air 11/16/17 19:04 116 11/16/17 19:01 99 Room Air 11/16/17 18:45 39.5 120 18 99/58 100 Room Air General Appearance: WD/WN, no apparent distress Head: normocephalic, atraumatic Eyes: normal inspection, PERRL Neck: supple Respiratory/Chest: chest non-tender, lungs clear, normal breath sounds, no respiratory distress, no accessory muscle use Cardiovascular: regular rate, rhythm, no edema, no gallop, no JVD, no murmur, normal peripheral pulses, + pertinent finding (there is a port in the right chest) Abdomen/GI: normal bowel sounds, non tender, soft, no organomegaly, no pulsatile mass Back: + pertinent finding (there is some skin deformaties in the posterior left flank consistent with subcutaneous lymphoma) Extremities/Musculoskelatal: no calf tenderness, no pedal edema, normal range of motion Neurologic/Psych: health and wellness director II-XII nml as tested, no motor/sensory deficits, alert, normal mood/affect, normal reflexes, oriented x 3 Skin: normal color Diagnostics Laboratory Results Results Past 24 Hours Test 11/16/17 18:53 11/16/17 19:09 Range/Units White Blood Count 0.54 4.8-10.8 K/uL Red Blood Count 2.48 4.7-6.1 M/uL Hemoglobin 8.7 14.0-18.0 g/dL Hematocrit 26.2 42-52 % Mean Corpuscular Volume 105.6 80-100 fL Mean Corpuscular Hemoglobin 35.1 25-34 pg Mean Corpuscular Hemoglobin Concent 33.2 32-36 g/dl Platelet Count 54 130-400 K/uL Mean Platelet Volume 10.2 7.4-10.4 fL Neutrophils (%) (Auto) 79.6 % Lymphocytes (%) (Auto) 18.5 % Monocytes (%) (Auto) 1.9 % Eosinophils (%) (Auto) 0.0 % Basophils (%) (Auto) 0.0 % Neutrophils # (Auto) 0.43 1.4-6.5 K/uL Lymphocytes # (Auto) 0.10 1.2-3.4 K/uL Monocytes # (Auto) 0.01 0.11-0.59 K/uL Eosinophils # (Auto) 0.00 0-0.5 K/uL Basophils # (Auto) 0.00 0-0.2 K/uL RDW Standard Deviation 74.3 36.4-46.3 fL RDW Coefficient of Variation 19.4 11.5-14.5 % Immature Granulocyte % (Auto) 0.0 % Immature Granulocyte # (Auto) 0.00 0.00-0.02 K/uL Prothrombin Time 10.4 9.0-12.0 SECONDS Prothromb Time International Ratio 1.0 0.9-1.1 Activated Partial Thromboplast Time 27.1 21.0-31.0 SECONDS Partial Thromboplastin Ratio 1.0 Sodium Level 130 136-145 mmol/L Potassium Level 4.8 3.5-5.1 mmol/L Chloride Level 98 98-107 mmol/L Carbon Dioxide Level 23 21-32 mmol/L Anion Gap 9.0 3-11 mmol/L Blood Urea Nitrogen 51 7-18 mg/dl Creatinine 1.91 0.60-1.40 mg/dl Est Creatinine Clear Calc Drug Dose 68.1 ml/min Estimated GFR () 51.8 Estimated GFR (Non- 44.7 BUN/Creatinine Ratio 26.8 10-20 Random Glucose 81 70-99 mg/dl Calcium Level 8.4 8.5-10.1 mg/dl Total Bilirubin 0.5 0.2-1 mg/dl Aspartate Amino Transf (AST/SGOT) 159 15-37 U/L Alanine Aminotransferase (ALT/SGPT) 160 12-78 U/L Alkaline Phosphatase 309 45-117 U/L Total Protein 5.8 6.4-8.2 gm/dl Albumin 2.7 3.4-5.0 gm/dl Globulin 3.1 2.5-4.0 gm/dl Albumin/Globulin Ratio 0.9 0.9-2 Procalcitonin 1.18 0-0.5 ng/ml Bedside Lactic Acid Venous 1.44 0.90-1.70 mmol/L Microbiology Results 11/16/17 Blood Culture, Received Pending 11/16/17 Blood Culture, Received Pending Diagnostic Radiology CHEST ONE VIEW PORTABLE CLINICAL HISTORY: Sepsis COMPARISON STUDY: 06/02/2017 FINDINGS: The cardiac and mediastinal contours remain stable. A right-sided A-Port catheter is again visualized. There is a progressive left lower lobe 6 cm mass/consolidation. There are no significant pleural effusions. IMPRESSION: Progressive 6 cm left lower lobe mass/consolidation CT Abdo and Pelvis without contrast. IMPRESSION: 1. Technically limited study secondary to the absence of intravenous contrast. 2. 5.4 cm left lower lobe pulmonary mass suspicious for neoplasm 3. Small left pleural effusion. Nodular pleural thickening on the left. Destructive changes involving the left 10th 11th and 12th ribs. Mixed lytic and blastic changes involving the T12 vertebra. 4. Right-sided hydronephrosis. Multiple partially calcified right renal masses 5. Contour deformity of the left kidney possibly secondary to a renal mass. 6. Pathologic partially calcified left para-aortic lymphadenopathy 7. Hepatomegaly. The innumerable hepatic masses described in the region ultrasound study are difficult to discern on this noncontrast examination. 8. Given the patient's clinical history and ultrasound findings, recurrent lymphoma is considered the diagnosis of exclusion Impression Assessment and Plan 32M with a past medical history of B-cell lymphoma on chemotherapy presents with fever of one day duration and a WBC of 0.54. Oncology consulted. Pt started on broad spectrum Abx, Flagyl in addition to continuing home meds. Neutropenic Fever (T=39.5F, Neutrophils = 0.54) in setting of recent chemotherapy Pt's only complaints are a MARINO, fever and constipation. X-ray showed progressive 6 cm left lower lobe mass/consolidation. After discussing with Dr. Reina we will start on Vancomycin, Flagyl and Cefepime. Pt is on chronic suppressive therapy which include Acyclovir and Fluconazole - we will continue these. Procalcitonin elevated, will repeat in AM - there is some literature regarding trending procalcitonin. Follow up Blood Cultures. Appreciate Oncology Input. Neuropathic Pain Pt is on a regimen of scheduled Methadone, Zofran and Gabapentin which he would like continued. We will oblige. PRN Oxycodone. Elevated Creatinine in the setting of R Renal Atrophy (likely from lymphoma) Creatinine at baseline is 1.8, on admission it's 1.91, pt states he is well hydrated. Abdominal US from two days prior shows worsening renal atrophy. GFR is 44 which is among the lowest its ever been measured. Will put on NSS 100mls/hr + regular diet. Elevated LFTs ( = 159, ALT =160) New onset for the past 3 weeks, Abd US from 11/13 suggest hepatic infiltration of lymphoma which can explain the elevation. After discussing with Dr. Reina, we will order a CT of the Abdomen w/o contrast. Update: CT does suggestive hepatic infiltration as well - please see full CT report Daily CMPs. Anemia (at baseline) Hg 8.7, will monitor. Hyponatremia (130) Pt has been low on previous admissions, will monitor, NSS as above. Mood - continue pt's Lexapro. Ativan 1mg PRN for anxiety - home med. GI / Constipation - continue pt's home regimen of Docusate and senna. continue home PPI. Dispo - Med Surg, regular diet. Pt is on Marinol at home, will continue. DVT Proph: SCDs Full Code Attending addendum: I have physically seen this patient, have supervised the medical residents activities, and agree with the H&P unless as otherwise noted. Assessment and Plan: Neutropenic fever/relapsed B-cell lymphoma/status post start of new chemotherapy yesterday/5.4 cm left lower lobe mass suspicious for neoplasm-- Destructive changes seen in left 10th, 11th and 12th ribs, with mixed lytic and blastic changes involving T12 vertebra-- Admit to nonmonitored bed. Oncology [facility] has asked the ED to include cefepime in his regimen. We will place on vancomycin IV, cefepime IV and Flagyl IV. Ultrasound of abdomen right upper quadrant on 11/13 showed hepatomegaly with innumerable small hypoechoic foci suggesting hepatic lymphoma, with the possibility of diffuse liver disease or micro abscesses appearing similar. The patient is developed acute kidney injury with creatinine 1.91 which limited use of contrast and CT tonight. We will hydrate with normal saline, repeat creatinine in the morning, and will look to repeat CT abdomen pelvis with contrast, and do a full CT with contrast to further view lung lesions. Patient follows with Dr. Sosa in [place], and follows locally with Dr. Kris Bradford. Continue acyclovir and fluconazole for prophylaxis. Consult Dr. Carbone. Repeat CBC with differential, chemistry profile and magnesium level in the a.m. Chronic pain syndrome-- Continue methadone 20 mg p.o. every 8 hours, gabapentin 600 mg p.o. every 8 hours and oxycodone immediate release 15 mg p.o. every 4 hours as needed breakthrough pain. Remaining notations and orders as noted above. Advanced Directives Existing Advance Directive: No Existing Living Will: No Existing Power of Brake Adjuster: No Resuscitation Status VTE Prophylaxis Will order VTE Prophylaxis: Yes Social Service Consult Cancer Patient Under [place] Resident Involvement: Resident Care Provided Care Provided: Adult Hospital Medicine
[2017-11-16] MEDS: SODIUM CHLORIDE 0.9% 1000ML 1,000 ML IV SCH (22:39)
[2017-11-16 23:04] VITALS: BP 103/62; PULSE 82; TEMP 37.2; O2SAT 97; Ht 185.4 cm; Wt 97.3 kg
[2017-11-16] MEDS: METRONIDAZOLE / NSS 500 MG in PREMIXED NSS 100 ML IV SCH (23:04)
[2017-11-16] MEDS ORDERED: CEFEPIME CONSULT ACTIVE PRN (23:30)
[2017-11-16] MEDS: ONDANSETRON 8 MG TAB PO SCH (23:56)
[2017-11-16] MEDS: METHADONE HCL 10 MG TAB PO SCH (23:57)
[2017-11-16] MEDS: GABAPENTIN 600 MG TAB PO SCH (23:57)
[2017-11-17] MEDS: CEFEPIME IV 2,000 MG in SYRINGE 7.5 ML IV SCH ×3 (02:36→18:06)
[2017-11-17] MEDS: METRONIDAZOLE / NSS 500 MG in PREMIXED NSS 100 ML IV SCH ×3 (06:45→23:18)
[2017-11-17 07:10] LABS: ALBUMIN 2.2 gm/dl (3.4-5.0); CALCIUM 7.8 mg/dl (8.5-10.1); CREATININE 1.87 mg/dl (0.60-1.40); POTASSIUM 4.5 mmol/L (3.5-5.1); TOTAL PROTEIN 5.2 gm/dl (6.4-8.2)
[2017-11-17 07:24] VITALS: BP 99/59; PULSE 71; TEMP 37.4; O2SAT 99
[2017-11-17 07:26] LABS: HEMATOCRIT 22.4 % (42-52); HEMOGLOBIN 7.4 g/dL (14.0-18.0); MEAN CELL VOLUME 106.2 fL (80-100); MEAN CORPUSCULAR HEMOGLOBIN 35.1 pg (25-34); MEAN PLATELET VOLUME 9.2 fL (7.4-10.4); PLATELET COUNT 42 K/uL (130-400); RED CELL DISTRIBUTION WIDTH CV 19.7 % (11.5-14.5); RED CELL DISTRIBUTION WIDTH SD 76.4 fL (36.4-46.3); WHITE BLOOD COUNT 0.42 K/uL (4.8-10.8)
[2017-11-17 08:00] VITALS: O2SAT 99
[2017-11-17] MEDS: PANTOprazole SOD 40 MG TAB PO SCH ×2 (08:00→08:20)
[2017-11-17] MEDS ORDERED: CEFEPIME IV 1,000 MG in DEXTROSE 5% 100ML 100 ML IV SCH (08:00)
[2017-11-17] MEDS: METHADONE HCL 10 MG TAB PO SCH ×3 (08:19→23:18)
[2017-11-17] MEDS: ACYCLOVIR 400 MG TAB PO SCH ×2 (08:19→19:59)
[2017-11-17] MEDS: SENNA 8.6 MG TAB PO SCH ×2 (08:19→20:00)
[2017-11-17] MEDS: ESCITALOPRAM OXALATE 20 MG TAB PO SCH (08:20)
[2017-11-17] MEDS: CETIRIZINE HCL 10 MG TAB PO SCH (08:20)
[2017-11-17] MEDS: GABAPENTIN 600 MG TAB PO SCH ×3 (08:20→23:18)
[2017-11-17] MEDS: DOCUSATE SODIUM 100 MG CAP PO SCH (08:20)
[2017-11-17] MEDS: SODIUM CHLORIDE 0.9% 1000ML 1,000 ML IV SCH (08:20)
[2017-11-17] MEDS: ONDANSETRON 8 MG TAB PO SCH ×3 (08:20→23:18)
[2017-11-17] MEDS: FLUCONAZOLE 100 MG TAB PO SCH (08:20)
[2017-11-17] MEDS: VANCOMYCIN IV 1,500 MG in SODIUM CHLORIDE 0.9% 500ML 500 ML IV SCH ×2 (08:21→20:56)
[2017-11-17] MEDS ORDERED: NURSING VERBAL MED ORDER ONE ×2 (08:45→13:15)
[2017-11-17] MEDS: FILGRASTIM 480 MCG/1.6 ML VIAL SQ SCH (09:27)
--- NOTE | 2017-11-17 09:33 | ONCOLOGY CONSULTATION ---
DATE OF CONSULTATION: 11/17/2017 DIAGNOSIS: Neutropenic fever. HISTORY OF PRESENT ILLNESS: Malik is a pleasant but unfortunate 32-year-old gentleman currently under Dr. 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 Apparently after receiving his initial course of combination gemcitabine,, oxaliplatin and rituximab on Saturday, the patient developed fever in excess of 103 prompting his presence in the Emergency Room. Malik reports mild sore throat and headache, but otherwise feels relatively well. He has been pancultured and presently receiving broad-spectrum antimicrobials including oral Diflucan. Again, Malik is well [facility] with aggressive non-Hodgkin's lymphoma, refractory to multiple treatments including CAR T cell treatment. He has received multiple regimens including R-CHOP, R-ICE, hyper-CVAD, and pembrolizumab. Apparently, Mr. Reyes has a donor for a potential allogeneic peripheral blood stem cell transplant, but unfortunately he has not been able to gain durable remission to proceed. PAST MEDICAL HISTORY: Includes diffuse large B cell lymphoma, GERD, acute renal injury. PAST SURGICAL HISTORY: Status post liver biopsy. MEDICATIONS: Prior to admission include acyclovir 800 mg p.o. b.i.d., cetirizine 10 mg p.o. daily, Dexilant 60 mg p.o. daily, docusate sodium 100 mg in the a.m. and 200 mg at night, Lexapro 20 mg p.o. daily, Diflucan 400 mg p.o. q.a.m., gabapentin 600 mg p.o. t.i.d., methadone 20 mg p.o. q. 8 hours, Senokot-S 2 tablets p.o. q.a.m. and Bactrim double strength 800/160 mg 1 tablet p.o. 3 times weekly. ALLERGIES: TO ERYTHROMYCIN AND COMPAZINE. FAMILY HISTORY: Positive for cancer and heart disease. SOCIAL HISTORY: The patient is and lives with his family. He is employed. He is a nonsmoker and nondrinker. REVIEW OF SYSTEMS: As per HPI most notably for a low-grade fever, sore throat, headache. He is not anorexic or losing weight. SKIN: No current rashes or lesions. HEENT: Headache has resolved. No dizziness or vertigo. No acute visual or hearing deficits. No sinus symptoms. Positive for sore throat. He denies dysphagia. LYMPHATIC: Again, history of a refractory non-Hodgkin's lymphoma. CARDIAC: Negative for angina or palpitations. No history of coronary artery disease. PULMONARY: No shortness of breath, dyspnea or orthopnea. No cough or hemoptysis. GASTROINTESTINAL: Negative for abdominal pain, nausea, vomiting, diarrhea or constipation. GENITOURINARY: No hematuria, dysuria, urinary incontinence. PSYCHIATRIC: Positive for depression. ENDOCRINE: Negative for diabetes or thyroid disease. NEUROLOGIC: Negative for seizure, stroke, migraine headache. HEMATOLOGIC: Positive for pancytopenia attributable to treatment. PHYSICAL EXAMINATION: GENERAL: Malik is a pleasant, well-developed 32-year-old gentleman, awake, alert and appropriate, in no acute distress. VITAL SIGNS: Temperature 37.4, pulse 71, respiratory rate 16, blood pressure 99/59. SKIN: Warm, dry, noncyanotic with petechiae, rash or ecchymosis. HEAD: Atraumatic, normocephalic. EYES: PERRLA, EOMI. Nares are patent without rhinorrhea or discharge. THROAT: There are several white punctate lesions that appear oral candidiasis like encompassing the hard palate especially. NECK: Supple. HEART: Regular rate and rhythm. No clicks, rubs, murmurs or gallops. LUNGS: Clear to auscultation bilaterally. ABDOMEN: Soft, nontender, nondistended. EXTREMITIES: No clubbing, cyanosis or edema. Pulses and strength are equal in all 4 quadrants. NEUROLOGICALLY: The patient is awake, alert, and oriented x3. Cranial nerves are grossly intact. LABORATORY DATA: WBC count 540, hemoglobin 8.7, platelet count 54,000, absolute neutrophil count 430. Sodium 135, potassium 4.5, chloride 105, carbon dioxide 21, creatinine 1.87, BUN 48, albumin 2.2, AST 182, ALT 165. RADIOGRAPHIC DATA: CT scan of the abdomen and pelvis was performed, technically limited study; however, 5.4 cm left lower lobe pulmonary mass is noted as well as a small left pleural effusion, destructive changes of the left 10th, 11th and 12th ribs with mixed lytic and blastic changes involving T12 vertebra, pathologic partially calcified left periaortic lymphadenopathy, hepatomegaly and numeral hepatic masses are noted. IMPRESSION: 1. Neutropenic fever. 2. Relapsed non-diffuse large B cell lymphoma. 3. Hypoalbuminemia. 4. Elevated liver transaminases. 5. Acute on chronic renal injury. 6. Pancytopenia, attributable to treatment. PLAN: Mr. Reyes was seen and examined at bedside this morning. He is feeling a little bit better; however, did complain of mild headache and sore throat upon admission. He is presently on broad-spectrum antimicrobials including oral Diflucan. Examination of the oral cavity suggests an underlying candidiasis. I suspect the patient's pancytopenia is attributable to multiple treatments administered previously and his marrow (stroma) is exceedingly vulnerable. I reviewed Dr. Carbone's last clinical note and important to note the patient's interlocker maintainer initially felt that Malik was at endstage; however, Dr. Carboen has proceeded with current regimen in the hopes of gaining durable remission to allow Mr. Reyes to undergo allogeneic peripheral blood stem cell transplant. Apparently, Mr. Reyes has a matched donor waiting and ready when a remission is achieved. Would continue supportive care otherwise. I took liberty of adding in Neupogen 480 mcg subQ daily. Transfusional support is not indicated at this time. Would continue to work on his protein balance. I have nothing further to add today and will notify Dr. Carbone of Malik's admission as he will take over the service Saturday. PARRIS
--- NOTE | 2017-11-17 14:25 | Progress Note ---
Subjective Date of Service: Nov 17, 2017. Subjective Pt evaluation today including: conversation w/ patient, conversation w/ family (), physical exam, lab review, review of studies, conversation w/ clothing consultant , review of inpatient medication list Pain: no pain PO Intake: adequate Voiding: no voiding problems patient resting in bed comfortably, very fatigued reviewed lab results, WBC still quite low at 0.42 and neutropenic Cr down slightly at 1.87 and electrolytes stable reviewed findings on CT scan with patient and with his discussed his recent history with patient's at the bedside oncology at [facility] discussed that he could possibly get bone marrow transplant if he showed response to recent chemo the initial left sided lung tumor was 10cm, looking for it to be less than 5cm to show improvement however, the liver nodules seen on CT scan are new patient's requested a copy of the CT report, I gave her one discussed with Dr. Fitzgerald, continue current treatment, gave dose of Neupogen Problem List Medical Problems: (1) Acute kidney injury Status: Acute (2) Febrile neutropenia Status: Acute (3) Febrile neutropenia Status: Acute (4) Fever Status: Acute (5) Fever Status: Acute (6) Influenza Status: Acute (7) Influenza Status: Acute (8) Neutropenia Status: Acute (9) Pancytopenia Status: Acute (10) Pancytopenia Status: Acute Review of Systems Constitutional: + weakness, + fatigue Cardiac: + edema (mild, in legs and feet) All Other Systems: Reviewed and Negative Medications Current Inpatient Medications Medications (Trade) Dose Ordered Sig/Sidney Route Start Time Stop Time Status Last Admin Dose Admin Vancomycin HCl (Consult) 1 ea UD PRN N/A 11/16/17 20:15 12/16/17 20:14 Metronidazole 500 mg/Prmx 100 ml @ 100 mls/hr Q8H IV 11/16/17 23:00 11/18/17 22:59 11/17/17 06:45 100 MLS/HR Acetaminophen (Tylenol Tab) 650 mg Q4H PRN PO 11/16/17 21:15 12/16/17 21:14 Al Hydrox/Mg Hydrox/Simethicone (Maalox Max Susp) 15 ml Q4H PRN PO 11/16/17 21:15 12/16/17 21:14 Magnesium Hydroxide (Milk Of Magnesia Susp) 30 ml Q6H PRN PO 11/16/17 21:15 12/16/17 21:14 Acyclovir (Zovirax Tab) 800 mg BID PO 11/17/17 08:00 12/17/17 08:59 11/17/17 08:19 800 MG Bisacodyl (Dulcolax Tab) 10 mg HS PRN PO 11/16/17 21:15 12/16/17 21:14 Docusate Sodium (coLACE CAP) 100 mg QAM PO 11/17/17 08:00 12/17/17 08:59 11/17/17 08:20 100 MG Docusate Sodium (coLACE CAP) 200 mg HS PO 11/17/17 21:00 12/17/17 20:59 Dronabinol (Marinol Cap) 5 mg TIDM PRN PO 11/16/17 21:15 12/16/17 21:14 Escitalopram Oxalate (Lexapro Tab) 20 mg QAM PO 11/17/17 08:00 12/17/17 08:59 11/17/17 08:20 20 MG Fluconazole (Diflucan Tab) 400 mg QAM PO 11/17/17 08:00 12/17/17 08:59 11/17/17 08:20 400 MG Gabapentin (Neurontin Tab) 600 mg Q8H PO 11/17/17 00:30 12/17/17 00:29 11/17/17 08:20 600 MG Lorazepam (Ativan Tab) 1 mg HS PRN PO 11/16/17 21:15 12/16/17 21:14 Methadone HCl (Dolophine Tab) 20 mg Q8H PO 11/17/17 00:00 12/01/17 00:00 11/17/17 08:19 20 MG Ondansetron HCl (Zofran Tab) 8 mg Q8H PO 11/17/17 00:00 12/17/17 00:00 11/17/17 08:20 8 MG Oxycodone HCl (Roxicodone Immediate Rel Tab) 15 mg Q4H PRN PO 11/16/17 21:15 11/30/17 21:14 Senna (Senokot Tab) 17.2 mg AMHS PO 11/17/17 08:00 12/17/17 08:59 11/17/17 08:19 17.2 MG Cetirizine HCl (zyrTEC TAB) 10 mg DAILY PO 11/17/17 08:00 12/17/17 08:59 11/17/17 08:20 10 MG Pantoprazole Sodium (Protonix Tab) 40 mg HS PRN PO 11/16/17 21:15 12/16/17 21:14 Pantoprazole Sodium (Protonix Tab) 40 mg QAM PO 11/17/17 08:00 12/17/17 07:59 Cefepime HCl 2000 mg/Syringe 20 ml @ 5 mls/min Q8H IV 11/17/17 02:00 11/19/17 01:59 11/17/17 09:27 5 MLS/MIN Cefepime HCl (Consult) 1 ea UD PRN N/A 11/16/17 23:30 12/16/17 23:29 Vancomycin HCl 1500 mg/Sodium Chloride 530 ml @ 200 mls/hr Q12 IV 11/17/17 09:00 11/18/17 09:01 11/17/17 08:21 200 MLS/HR Heparin Sodium (Porcine) (Heparin 100 Unit/ml 5ml Flush) 5 ml PRN PRN IV 11/17/17 07:00 12/17/17 06:59 11/17/17 11:30 5 ML Filgrastim (Neupogen Sq) 480 mcg DAILY SQ 11/17/17 09:00 12/17/17 08:59 11/17/17 09:27 480 MCG Miscellaneous Information (Nursing Verbal Med Order) 1 ea ONE ONCE N/A 11/17/17 13:15 11/17/17 13:16 UNV Dexlansoprazole (Dexilant Dr) 60 mg QAM PO 11/18/17 08:00 12/18/17 07:59 Objective Vital Signs Date Time Temp Pulse Resp B/P (MAP) Pulse Ox O2 Delivery O2 Flow Rate FiO2 11/17/17 08:00 99 Room Air 11/17/17 07:24 37.4 71 16 99/59 (72) 99 11/17/17 00:00 Room Air 11/16/17 23:04 37.2 82 16 103/62 97 Room Air 11/16/17 22:08 92 92/47 97 11/16/17 21:13 84 104/51 96 Room Air 11/16/17 20:02 90 110/61 98 Room Air 11/16/17 19:04 116 11/16/17 19:01 99 Room Air 11/16/17 18:45 39.5 120 18 99/58 100 Room Air Physical Exam General Appearance: WD/WN, no apparent distress Eyes: normal inspection, EOMI, sclerae normal ENT: normal ENT inspection, hearing grossly normal, pharynx normal Neck: supple, no adenopathy, no JVD, trachea midline Respiratory/Chest: chest non-tender, lungs clear, normal breath sounds, no respiratory distress, no accessory muscle use Cardiovascular: regular rate, rhythm, no gallop, no JVD, no murmur Abdomen: normal bowel sounds, non tender, soft, no organomegaly Extremities: normal range of motion, non-tender, normal inspection, no calf tenderness, pelvis stable, + pedal edema (non-pitting edema in lower legs and feet) 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, no motor/sensory deficits, alert, normal mood/affect, oriented x 3 Skin: normal color, warm/dry, no rash Lymphatic: no adenopathy Laboratory Results Last 24 Hours Test 11/16/17 18:53 11/16/17 19:09 11/17/17 06:16 White Blood Count 0.54 K/uL 0.42 K/uL Red Blood Count 2.48 M/uL 2.11 M/uL Hemoglobin 8.7 g/dL 7.4 g/dL Hematocrit 26.2 % 22.4 % Mean Corpuscular Volume 105.6 fL 106.2 fL Mean Corpuscular Hemoglobin 35.1 pg 35.1 pg Mean Corpuscular Hemoglobin Concent 33.2 g/dl 33.0 g/dl Platelet Count 54 K/uL 42 K/uL Mean Platelet Volume 10.2 fL 9.2 fL Neutrophils (%) (Auto) 79.6 % Lymphocytes (%) (Auto) 18.5 % Monocytes (%) (Auto) 1.9 % Eosinophils (%) (Auto) 0.0 % Basophils (%) (Auto) 0.0 % Neutrophils # (Auto) 0.43 K/uL Lymphocytes # (Auto) 0.10 K/uL Monocytes # (Auto) 0.01 K/uL Eosinophils # (Auto) 0.00 K/uL Basophils # (Auto) 0.00 K/uL RDW Standard Deviation 74.3 fL 76.4 fL RDW Coefficient of Variation 19.4 % 19.7 % Immature Granulocyte % (Auto) 0.0 % Immature Granulocyte # (Auto) 0.00 K/uL Prothrombin Time 10.4 SECONDS Prothromb Time International Ratio 1.0 Activated Partial Thromboplast Time 27.1 SECONDS Partial Thromboplastin Ratio 1.0 Sodium Level 130 mmol/L 135 mmol/L Potassium Level 4.8 mmol/L 4.5 mmol/L Chloride Level 98 mmol/L 105 mmol/L Carbon Dioxide Level 23 mmol/L 21 mmol/L Anion Gap 9.0 mmol/L 9.0 mmol/L Blood Urea Nitrogen 51 mg/dl 48 mg/dl Creatinine 1.91 mg/dl 1.87 mg/dl Est Creatinine Clear Calc Drug Dose 68.1 ml/min 69.7 ml/min Estimated GFR () 51.8 53.2 Estimated GFR (Non- 44.7 45.9 BUN/Creatinine Ratio 26.8 25.7 Random Glucose 81 mg/dl 77 mg/dl Calcium Level 8.4 mg/dl 7.8 mg/dl Total Bilirubin 0.5 mg/dl 0.7 mg/dl Aspartate Amino Transf (AST/SGOT) 159 U/L 182 U/L Alanine Aminotransferase (ALT/SGPT) 160 U/L 165 U/L Alkaline Phosphatase 309 U/L 282 U/L Total Protein 5.8 gm/dl 5.2 gm/dl Albumin 2.7 gm/dl 2.2 gm/dl Globulin 3.1 gm/dl 3.0 gm/dl Albumin/Globulin Ratio 0.9 0.7 Procalcitonin 1.18 ng/ml 3.42 ng/ml Bedside Lactic Acid Venous 1.44 mmol/L Assessment and Plan 32M with a past medical history of B-cell lymphoma on chemotherapy presents with fever of one day duration and a WBC of 0.54. Oncology consulted. Pt started on broad spectrum Abx, Flagyl in addition to continuing home meds. Neutropenic Fever (T=39.5F, Neutrophils = 0.54) in setting of recent chemotherapy WBC and neutrophils down slightly this morning, Dr. 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) Cr up at 1.91 on admission from baseline closer to 1.80 treated with NSS at 100cc/hr, Cr improved to 1.87 getting edematous in feet, will stop fluids, he is making adequate urine no signs of obstruction on CT scan repeat labs in the AM Diffuse non-B cell lymphoma, recurrent has been told by oncologist at [facility] that disease is end stage he has been through 10 different cycles of treatment since disease was discovered in 2014, has been through radiation last resort to to try an allogenenic peripheral blood stem cell transplant, but only if disease shows remission lung lesion was noted to be 10cm on PET scan a month ago on our CT the lesion is only measured 5.4cm however, he has new lesions in liver follows locally with Dr. Carbone Elevated LFTs ( = 159, ALT =160) AST and ALT still elevated, slightly higher today, Alkaline phosphatase down slightly but still high, bili normal likely due to the liver lesions seen on CT, suggests new disease in the liver repeat labs tomorrow Anemia (at baseline) 8.7 on admission, will repeat tomorrow Neuropathic Pain Pt is on a regimen of scheduled Methadone, Zofran and Gabapentin which he would like continued. We will oblige. PRN Oxycodone. Hyponatremia (130) up to 135 today from 130, continue to monitor Mood - continue pt's Lexapro. Ativan 1mg PRN for anxiety - home med. GI / Constipation - continue pt's home regimen of Docusate and senna. continue home PPI. Dispo - Med Surg, regular diet. Pt is on Marinol at home, will continue. DVT Proph: SCDs Full Code
[2017-11-17 15:01] VITALS: BP 105/67; PULSE 84; TEMP 37; O2SAT 99
[2017-11-17] MEDS ORDERED: hydrOXYzine HCL 25 MG TAB PO PRN (17:00)
[2017-11-17 19:42] VITALS: BP 101/67; PULSE 101; TEMP 37.3; O2SAT 100
[2017-11-17] MEDS ORDERED: DOCUSATE SODIUM 100 MG CAP PO SCH (21:00)
[2017-11-17 22:32] VITALS: BP 99/59; PULSE 91; TEMP 37.1; O2SAT 98
[2017-11-18] MEDS: CEFEPIME IV 2,000 MG in SYRINGE 7.5 ML IV SCH ×2 (01:43→09:57)
[2017-11-18 04:10] VITALS: BP 121/76; PULSE 105; TEMP 37.3; O2SAT 99
[2017-11-18 06:43] LABS: HEMATOCRIT 23.6 % (42-52); HEMOGLOBIN 7.7 g/dL (14.0-18.0); MEAN CELL VOLUME 105.8 fL (80-100); MEAN CORPUSCULAR HEMOGLOBIN 34.5 pg (25-34); MEAN CORPUSCULAR HGB CONC 32.6 g/dl (32-36); MEAN PLATELET VOLUME 9.9 fL (7.4-10.4); PLATELET COUNT 40 K/uL (130-400); RED CELL DISTRIBUTION WIDTH CV 19.3 % (11.5-14.5); RED CELL DISTRIBUTION WIDTH SD 74.3 fL (36.4-46.3); WHITE BLOOD COUNT 0.65 K/uL (4.8-10.8)
[2017-11-18 06:59] LABS: ALBUMIN 2.3 gm/dl (3.4-5.0); CALCIUM 8.4 mg/dl (8.5-10.1); CREATININE 2.01 mg/dl (0.60-1.40); POTASSIUM 4.6 mmol/L (3.5-5.1); TOTAL PROTEIN 5.5 gm/dl (6.4-8.2)
[2017-11-18 07:00] LABS: EOS % 4.6 %; EOS ABS # 0.03 K/uL (0-0.5); IG# 0.01 K/uL (0.00-0.02); LYMPH % 18.5 %; LYMPH ABS # 0.12 K/uL (1.2-3.4); NEUT % 75.4 %; NEUT ABS # 0.49 K/uL (1.4-6.5)
[2017-11-18 07:33] VITALS: BP 100/62; PULSE 83; TEMP 37.2; O2SAT 98
[2017-11-18 08:00] VITALS: O2SAT 98
[2017-11-18] MEDS ORDERED: DEXLANSOPRAZOLE 60 MG CAPDR PO SCH (08:00)
[2017-11-18] MEDS: VANCOMYCIN IV 1,500 MG in SODIUM CHLORIDE 0.9% 500ML 500 ML IV SCH ×2 (08:15→09:01)
[2017-11-18] MEDS: METRONIDAZOLE / NSS 500 MG in PREMIXED NSS 100 ML IV SCH ×2 (08:15→14:33)
[2017-11-18] MEDS: DOCUSATE SODIUM 100 MG CAP PO SCH (08:17)
[2017-11-18] MEDS: CETIRIZINE HCL 10 MG TAB PO SCH (08:17)
[2017-11-18] MEDS: ACYCLOVIR 400 MG TAB PO SCH (08:17)
[2017-11-18] MEDS: SENNA 8.6 MG TAB PO SCH (08:17)
[2017-11-18] MEDS: METHADONE HCL 10 MG TAB PO SCH ×2 (08:17→15:55)
[2017-11-18] MEDS: GABAPENTIN 600 MG TAB PO SCH ×2 (08:17→15:55)
[2017-11-18] MEDS: FLUCONAZOLE 100 MG TAB PO SCH (08:17)
[2017-11-18] MEDS: ESCITALOPRAM OXALATE 20 MG TAB PO SCH (08:17)
[2017-11-18] MEDS: ONDANSETRON 8 MG TAB PO SCH ×2 (08:17→15:55)
[2017-11-18] MEDS ORDERED: VANCOMYCIN TROUGH ONE (08:30)
[2017-11-18] MEDS: FILGRASTIM 480 MCG/1.6 ML VIAL SQ SCH (09:01)
[2017-11-18 11:41] VITALS: BP 97/61; PULSE 93; TEMP 37.1; O2SAT 97
[2017-11-18 13:58] VITALS: BP 97/61; PULSE 93; TEMP 37.1; O2SAT 97
--- NOTE | 2017-11-18 15:03 | Pharmacy Progress Note ---
Pharmacy Abx Dose Short Note Date of Service Nov 18, 2017. Assessment & Plan A/P Mr. Reyes's trough prior to Css supratherapeutic, 26.2mcg/mL. Will extend dosing interval from q12--->q18 to lower trough within goal range. Trough ordered for @1330. Pharmacy will continue to follow and will adjust dose/frequency as necessary. Thank you.
--- NOTE | 2017-11-18 15:09 | Discharge Instructions ---
Discharge Instructions Date of Service Nov 18, 2017. Admission Reason for Admission: Neutropenic Fever Discharge Discharge Diagnosis / Problem: Neutropenic Fever Discharge Goals Goal(s): Decrease discomfort, Improve function Activity Recommendations Activity Limitations: resume your previous activity . Instructions / Follow-Up Instructions / Follow-Up Followup with PCP and Oncologist within next month. Current Hospital Diet Patient's current hospital diet: Regular Diet Discharge Diet Recommended Diet: Regular Diet Pending Studies Studies pending at discharge: no Medical Emergencies . Who to Call and When: Medical Emergencies: If at any time you feel your situation is an emergency, please call 911 immediately. . Non-Emergent Contact Non-Emergency issues call your: Primary Care Provider Call Non-Emergent contact if: you have any medication questions . . "Provider Documentation" section prepared by Tonio Vu. .
--- NOTE | 2017-11-18 15:25 | Discharge Summary ---
Discharge Summary Date of Service Nov 18, 2017. Discharge Summary Admission Date: Nov 16, 2017 at 21:10 Discharge Date: Nov 18, 2017 Discharge Disposition: Home Principal Diagnosis: Fever caused by tumor Immunizations: Have You Had Influenza Vaccine: No History of Tetanus Vaccine?: Unknown History of Pneumococcal: Unknown History of Hepatitis B Vaccine: Unknown Consultations: Onc Medication Reconciliation Continued Medications: Acyclovir (Zovirax) 800 Mg Tab 800 MG PO BID Bisacodyl (Bisacodyl) 5 Mg Tab 2 TAB PO HS PRN for Constipation Cetirizine Hcl (Cetirizine Hcl) 10 Mg Chw 10 MG PO DAILY Dexlansoprazole (Dexilant) 60 Mg Cap 60 MG PO QAM Dexlansoprazole (Dexilant) 30 Mg Cap 30 MG PO HS PRN for gerd Docusate Sodium (Docusate Sodium) 100 Mg Cap 100 MG PO QAM Docusate Sodium (Docusate Sodium) 100 Mg Cap 200 MG PO HS Dronabinol (Marinol) 2.5 Mg Cap 5 MG PO TIDM PRN for IMPROVED APPETITE Escitalopram Oxalate (Lexapro) 20 Mg Tab 20 MG PO QAM Fluconazole (Diflucan) 200 Mg Tab 400 MG PO QAM, TAB Gabapentin (Gabapentin) 600 Mg Tab 600 MG PO TID Lorazepam (Ativan) 1 Mg Tab 1 MG PO HS PRN for Anxiety Methadone Hcl (Dolophine) 10 Mg Tab 20 MG PO Q8 Ondansetron Hcl (Zofran) 8 Mg Tab 8 MG PO Q8 PRN for Nausea, TAB Oxycodone Immediate Rel Tab (Roxicodone Ir) 5 Mg Tab 10-15 MG PO Q4 PRN for Pain, TAB Sennosides (Senna-Lax) 8.6 Mg Tab 2 TABS PO AMHS Sulfa/Trimethoprim (Bactrim Ds 800MG/160MG) Tab 1 TAB PO 3XWK, #6 TAB MON,WED,FRI Discharge Exam Review of Systems Constitutional: + weakness, + fatigue Cardiac: + edema (mild, in legs and feet) All Other Systems: Reviewed and Negative Physical Exam General Appearance: WD/WN, no apparent distress Eyes: normal inspection, EOMI, sclerae normal ENT: normal ENT inspection, hearing grossly normal, pharynx normal Neck: supple, no adenopathy, no JVD, trachea midline Respiratory/Chest: chest non-tender, lungs clear, normal breath sounds, no respiratory distress, no accessory muscle use Cardiovascular: regular rate, rhythm, no gallop, no JVD, no murmur Abdomen: normal bowel sounds, non tender, soft, no organomegaly Extremities: normal range of motion, non-tender, normal inspection, no calf tenderness, pelvis stable, + pedal edema (non-pitting edema in lower legs and feet) 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 Oncology consulted. Pt started on broad spectrum Abx, Flagyl in addition to continuing home meds. Neutropenic Fever (T=39.5F, Neutrophils = 0.54) in setting of recent chemotherapy WBC and neutrophils down slightly this morning, Dr. Fitzgerald ordered Neupogen, repeat labs in the AM continue broad spectrum antibiotics for additional 24 hours, may taper after that, no clear sign of infection continue Diflucan for oral candidiasis, continue Acyclovir for chronic suppression blood cultures negative, no fever since admission, pro-calcitonin up slightly Patient will be discharged today and antibiotics will be stopped. D/W Oncology, it is likely that the fever was caused by the cancer. 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 Diffuse non-B cell lymphoma, recurrent has been told by oncologist at [facility] that disease is end stage he has been through 10 different cycles of treatment since disease was discovered in 2014, has been through radiation last resort to to try an allogenenic peripheral blood stem cell transplant, but only if disease shows remission lung lesion was noted to be 10cm on PET scan a month ago on our CT the lesion is only measured 5.4cm however, he has new lesions in liver follows locally with Dr. Carbone Elevated LFTs ( = 159, ALT =160) AST and ALT still elevated, slightly higher today, Alkaline phosphatase down slightly but still high, bili normal likely due to the liver lesions seen on CT, suggests new disease in the liver Anemia (at baseline) 8.7 on admission, will repeat tomorrow Neuropathic Pain Pt is on a regimen of scheduled Methadone, Zofran and Gabapentin which he would like continued. We will oblige. PRN Oxycodone. Hyponatremia (130) up to 135 today from 130, continue to monitor Mood - continue pt's Lexapro. Ativan 1mg PRN for anxiety - home med. GI / Constipation - continue pt's home regimen of Docusate and senna. continue home PPI. Dispo - Med Surg, regular diet. Pt is on Marinol at home, will continue. DVT Proph: SCDs Full Code Oncology Input: He had an episode of febrile neutropenia on Saturday. He is feeling totally fine today and has been afebrile for around 36 hours. He has no particular infectious symptoms and has been having tumor fevers for a few weeks now. I suspect that is the origin of his fever. I would generally be inclined to observe him a bit longer, but he is very motivated to go home and given the circumstances (palliative chemo in the n-th line setting), I think the goal of having him at home as much as is feasible seems appropriate. He will need to contact my office [place] if he has another fever >100.4. Total Time Spent: Greater than 30 minutes This includes examination of the patient, discharge planning, medication reconciliation, and communication with other providers. Discharge Instructions Please refer to the electronic Patient Visit Report (Discharge Instructions) for additional information. Follow-Up Followup with PCP within 1-2 weeks. Recommend rechecking BMP. Additional Copies To Dorian Franz M.D.
--- NOTE | 2017-11-18 16:16 | Hematology/Oncology Prog Note ---
Hematology/Onc Progress Note Date of Service Nov 18, 2017. Diagnoses Heavily pretreated, multiply relapsed DLBCL Fever Medications Medications Administered Medications (Trade) Dose Ordered Sig/Sidney Route Start Time Stop Time Status Last Admin Dose Admin Sodium Chloride 1,000 ml @ 999 mls/hr Q1H1M ONCE IV 11/16/17 18:53 11/16/17 19:53 DC 11/16/17 19:02 999 MLS/HR Sodium Chloride 1,000 ml @ 999 mls/hr Q1H1M STAT IV 11/16/17 18:53 11/16/17 19:53 DC 11/16/17 19:02 999 MLS/HR Acetaminophen (Tylenol Tab) 1,000 mg NOW STAT PO 11/16/17 19:24 11/16/17 19:25 DC 11/16/17 19:30 1,000 MG Cefepime HCl 1000 mg/Dextrose 111 ml @ 200 mls/hr NOW STAT IV 11/16/17 19:59 11/16/17 20:32 DC 11/16/17 20:20 200 MLS/HR Vancomycin HCl 2500 mg/Sodium Chloride 550 ml @ 200 mls/hr TODAY@2100 IV 11/16/17 21:00 11/16/17 23:44 DC 11/16/17 20:55 200 MLS/HR Metronidazole 500 mg/Prmx 100 ml @ 100 mls/hr Q8H IV 11/16/17 23:00 11/20/17 22:59 11/18/17 14:33 100 MLS/HR Acyclovir (Zovirax Tab) 800 mg BID PO 11/17/17 08:00 12/17/17 08:59 11/18/17 08:17 800 MG Docusate Sodium (coLACE CAP) 100 mg QAM PO 11/17/17 08:00 12/17/17 08:59 11/18/17 08:17 100 MG Docusate Sodium (coLACE CAP) 200 mg HS PO 11/17/17 21:00 12/17/17 20:59 11/17/17 19:58 200 MG Escitalopram Oxalate (Lexapro Tab) 20 mg QAM PO 11/17/17 08:00 12/17/17 08:59 11/18/17 08:17 20 MG Fluconazole (Diflucan Tab) 400 mg QAM PO 11/17/17 08:00 12/17/17 08:59 11/18/17 08:17 400 MG Gabapentin (Neurontin Tab) 600 mg Q8H PO 11/17/17 00:30 12/17/17 00:29 11/18/17 15:55 600 MG Methadone HCl (Dolophine Tab) 20 mg Q8H PO 11/17/17 00:00 12/01/17 00:00 11/18/17 15:55 20 MG Ondansetron HCl (Zofran Tab) 8 mg Q8H PO 11/17/17 00:00 12/17/17 00:00 11/18/17 15:55 8 MG Senna (Senokot Tab) 17.2 mg AMHS PO 11/17/17 08:00 12/17/17 08:59 11/18/17 08:17 17.2 MG Cetirizine HCl (zyrTEC TAB) 10 mg DAILY PO 11/17/17 08:00 12/17/17 08:59 11/18/17 08:17 10 MG Sodium Chloride 1,000 ml @ 100 mls/hr Q10H IV 11/16/17 23:00 11/17/17 11:24 DC 11/17/17 08:20 100 MLS/HR Cefepime HCl 2000 mg/Syringe 20 ml @ 5 mls/min Q8H IV 11/17/17 02:00 11/20/17 01:59 11/18/17 09:57 5 MLS/MIN Vancomycin HCl 1500 mg/Sodium Chloride 530 ml @ 200 mls/hr Q12 IV 11/17/17 09:00 11/18/17 09:01 DC 11/18/17 09:01 200 MLS/HR Heparin Sodium (Porcine) (Heparin 100 Unit/ml 5ml Flush) 5 ml PRN PRN IV 11/17/17 07:00 12/17/17 06:59 11/18/17 16:01 5 ML Filgrastim (Neupogen Sq) 480 mcg DAILY SQ 11/17/17 09:00 12/17/17 08:59 11/18/17 09:01 480 MCG Dexlansoprazole (Dexilant Dr) 60 mg QAM PO 11/18/17 08:00 12/18/17 07:59 11/18/17 08:13 60 MG Hydroxyzine HCl (Vistaril Tab) 25 mg Q6H PRN PO 11/17/17 17:00 12/17/17 16:59 11/17/17 19:57 25 MG Subjective Mr. Reyes looks and feels fine. He has not had another fever since his admission Saturday evening. He has no localizing signs or symptoms of infection. He feels generally well and has no particular complaints. He would like to go home. Review of Systems: Constitutional: + fatigue (generalized), No fever ENT: No nasal symptoms, No sore throat Respiratory: No cough, No sputum, No shortness of breath Cardiovascular: No chest pain Abdomen: No pain, No nausea, No diarrhea Male : No dysuria, No urinary frequency Heme: No abnormal bleeding/bruising Vital Signs Vital Signs Past 12 Hours Date Time Temp Pulse Resp B/P (MAP) Pulse Ox O2 Delivery O2 Flow Rate FiO2 11/18/17 13:58 37.1 93 18 97 Room Air 11/18/17 11:41 37.1 93 18 97/61 (73) 97 11/18/17 08:00 98 Room Air 11/18/17 07:33 37.2 83 16 100/62 (75) 98 Physical Exam Constitutional: General Apperance: heathly-appearing Level of Distress: NAD Psychiatric: Mental Status: active & alert Orientation: oriented except where noted Lungs: Auscuitation: breath sounds normal Cardiovascular: Heart Auscultation: RRR Abdomen: Inspection & Palpation: soft, no tenderness, guarding & rebound Extremities: no edema Laboratory Last 24 Hours Test 11/18/17 06:04 11/18/17 08:47 White Blood Count 0.65 K/uL Red Blood Count 2.23 M/uL Hemoglobin 7.7 g/dL Hematocrit 23.6 % Mean Corpuscular Volume 105.8 fL Mean Corpuscular Hemoglobin 34.5 pg Mean Corpuscular Hemoglobin Concent 32.6 g/dl Platelet Count 40 K/uL Mean Platelet Volume 9.9 fL Neutrophils (%) (Auto) 75.4 % Lymphocytes (%) (Auto) 18.5 % Monocytes (%) (Auto) 0.0 % Eosinophils (%) (Auto) 4.6 % Basophils (%) (Auto) 0.0 % Neutrophils # (Auto) 0.49 K/uL Lymphocytes # (Auto) 0.12 K/uL Monocytes # (Auto) 0.00 K/uL Eosinophils # (Auto) 0.03 K/uL Basophils # (Auto) 0.00 K/uL RDW Standard Deviation 74.3 fL RDW Coefficient of Variation 19.3 % Immature Granulocyte % (Auto) 1.5 % Immature Granulocyte # (Auto) 0.01 K/uL Toxic Granulation OCCASIONAL Toxic Vacuolation 1+ Dohle Bodies 1+ Large Platelets 1+ Ovalocytes 1+ Sodium Level 134 mmol/L Potassium Level 4.6 mmol/L Chloride Level 103 mmol/L Carbon Dioxide Level 23 mmol/L Anion Gap 8.0 mmol/L Blood Urea Nitrogen 40 mg/dl Creatinine 2.01 mg/dl Est Creatinine Clear Calc Drug Dose 63.6 ml/min Estimated GFR () 48.7 Estimated GFR (Non- 42.0 BUN/Creatinine Ratio 20.0 Random Glucose 70 mg/dl Calcium Level 8.4 mg/dl Total Bilirubin 0.6 mg/dl Aspartate Amino Transf (AST/SGOT) 342 U/L Alanine Aminotransferase (ALT/SGPT) 301 U/L Alkaline Phosphatase 295 U/L Total Protein 5.5 gm/dl Albumin 2.3 gm/dl Globulin 3.2 gm/dl Albumin/Globulin Ratio 0.7 Procalcitonin 3.01 ng/ml Vancomycin Level Trough 26.2 mcg/ml Assessment & Plan He had an episode of febrile neutropenia on Saturday. He is feeling totally fine today and has been afebrile for around 36 hours. He has no particular infectious symptoms and has been having tumor fevers for a few weeks now. I suspect that is the origin of his fever. I would generally be inclined to observe him a bit longer, but he is very motivated to go home and given the circumstances (palliative chemo in the n-th line setting), I think the goal of having him at home as much as is feasible seems appropriate. He will need to contact my office [place] if he has another fever >100.4.
[2017-11-19] MEDS ORDERED: VANCOMYCIN IV 1,500 MG in SODIUM CHLORIDE 0.9% 500ML 500 ML IV SCH (02:00)
[2017-11-20] MEDS ORDERED: VANCOMYCIN TROUGH ONE (13:30)
== END 2017-11-18 18:04 | disposition home or self-care (01) | DRG 841 ==
LOC: C.EDB 18:43 → C.4E 21:10 → ENRESERV 21:26
PROVIDERS: ADMIT Hospitalist; ATTEND Internal Medicine Sports Medicine
DX: C83.30 Diffuse large B-cell lymphoma, unspecified site (principal); R50.81 Fever presenting with conditions classified elsewhere; E87.1 Hypo-osmolality and hyponatremia; B37.0 Candidal stomatitis; N17.9 Acute kidney failure, unspecified; D70.9 Neutropenia, unspecified; D64.9 Anemia, unspecified; K59.00 Constipation, unspecified; G62.9 Polyneuropathy, unspecified; E88.09 Other disorders of plasma-protein metabolism, not elsewhere classified; N26.1 Atrophy of kidney (terminal)

== ENCOUNTER 2017-11-20 09:12 | Inpatient (IN) | payer OTHER ==
[~2017-11-20] VITALS: Ht 185.4 cm; Wt 95.2 kg
[2017-11-20] VITALS (16 sets, daily range): BP systolic 96–118; BP diastolic 58–76; PULSE 76–104; TEMP 37–38.2; O2SAT 91–100; BMI 27.6
[~2017-11-20 09:12] MED LIST changes: +FLUC200T4 PO; -MAGIC MOUTH WASH PO; +ONDA-170 PO; -VENE100T PO; -[UNRECOGNIZED DRUG - CODE] PO; -[UNRECOGNIZED DRUG - OTHER] MT
[2017-11-20] MEDS ORDERED: SODIUM CHLORIDE 0.9% 1000ML 2,000 ML IV STA (09:34)
--- NOTE | 2017-11-20 10:07 | DIAGNOSTIC IMAGING REPORT ---
SINGLE VIEW CHEST CLINICAL HISTORY: Fever. Sepsis. FINDINGS: An AP, portable, upright chest radiograph is compared to study dated 11/16/2017 and correlated with chest CT dated 05/13/2017. The examination is degraded by portable technique and patient rotation. A right-sided central venous infusion port is unchanged in position. The cardiomediastinal silhouette is unremarkable. There is a trace left pleural effusion. A lobulated masslike lesion is again seen in the retrocardiac region and measures up to 6 cm. A trace left pleural effusion is noted. Patchy opacities are present the left lung base. No pneumothorax is seen. The bony thorax is grossly intact. IMPRESSION: 1. There is a trace left pleural effusion and patchy airspace opacities at the left lung base. Correlate clinically for evidence of pneumonia. 2. A 6 cm lobulated masslike density is again seen in the retrocardiac region. 3. The right lung appears clear. Electronically signed by: Antoine Kennedy M.D. 11/20/2017 10:06 AM Dictated Date/Time: 11/20/2017 10:04 AM
[2017-11-20] MEDS ORDERED: FENTANYL CITRATE INJ 50 MCG/1 ML 2 ML VIAL IV STA (10:20)
[2017-11-20] MEDS ORDERED: LIDODERM (LIDOCAINE) PATCH 5% TD STA (10:20)
[2017-11-20 10:25] LABS: INR 1.1 (0.9-1.1)
[2017-11-20 10:37] LABS: ALBUMIN 2.4 gm/dl (3.4-5.0); ALKALINE PHOSPHATASE 395 U/L (45-117); ALT/SGPT 571 U/L (12-78); AST/SGOT 665 U/L (15-37); BLOOD UREA NITROGEN 33 mg/dl (7-18); CALCIUM 9.3 mg/dl (8.5-10.1); CARBON DIOXIDE 23 mmol/L (21-32); CREATININE 2.03 mg/dl (0.60-1.40); GLUCOSE 91 mg/dl (70-99); LIPASE 114 U/L (73-393); PHOSPHORUS 1.8 mg/dl (2.5-4.9); POTASSIUM 3.9 mmol/L (3.5-5.1); SODIUM 129 mmol/L (136-145); TOTAL PROTEIN 5.7 gm/dl (6.4-8.2)
[2017-11-20] MEDS ORDERED: PIPERACILLIN/TAZOBACTAM 4.5 GM/100ML D5W IV STA (10:44)
[2017-11-20] MEDS ORDERED: VANCOMYCIN IV 2,000 MG in SODIUM CHLORIDE 0.9% 500ML 500 ML IV STA (10:44)
[2017-11-20] MEDS ORDERED: POTASSIUM PHOS 3 MMOL/1 ML INFUSION IV STA (10:44)
[2017-11-20] MEDS ORDERED: MAGNESIUM SULFATE 1GM / D5W 1 GM BAG IV STA (10:44)
[2017-11-20] MEDS ORDERED: VANCOMYCIN CONSULT ACTIVE PRN ×2 (10:45→13:45)
--- NOTE | 2017-11-20 11:15 | EMERGENCY ROOM VISIT NOTE ---
History Report prepared by Alie: Charlie Lane Under the Supervision of: Dr. Sekou Urias M.D. First contact with patient: 09:19 Chief Complaint: FEVER Stated Complaint: FEVER, ABD PAIN (RUQ), SOB - CANCER PT History of Present Illness The patient is a 32 year old male who presents to the Emergency Room with complaints of a waxing and waning fever that was noticed this morning at 0400, 5.5 hours ago. The patient notes that he recorded a temperature of 101.0 at home. The patient is currently receiving chemotherapy treatments ([place]-Ox with Rituxan) for diffuse large B cell lymphoma. The cancer is now present in his liver, right kidney, chest, and back. He is followed by Dr. Carbone at [facility] as well as at [facility]. The patient was in the hospital on Saturday for a fever and was admitted for 2 days. He was discharged on Saturday, 2 days ago. He had some diarrhea at that time. The patient is also complaining of right sided chest pain that is worsened with inhalation. He rates the pain as a 6/10 in severity. He does feel short of breath as well. Source of History: patient Onset: 5.5 hours ago Position: chest (right) Symptom Intensity: 101.0 degree fever Quality: other (fever) Timing: waxes/wanes Modifying Factors (Worsening): breathing (inhalation worsens CP) Associated Symptoms: + SOB, + diarrhea Review of Systems See HPI for pertinent positives and negatives. A total of ten systems were reviewed and were otherwise negative. Past Medical & Surgical Medical Problems: (1) Anemia (2) GERD (gastroesophageal reflux disease) (3) Hypotension (4) Lymphoma (5) Neutropenic fever (6) Neutropenic fever (7) Sore throat Surgical Problems: (1) History of liver biopsy Family History Cancer Heart disease Social History Smoking Status: Never Smoker Drug Use: none Marital Status: Housing Status: lives with significant other Occupation Status: employed Current/Historical Medications Scheduled Acyclovir (Zovirax), 800 MG PO BID Cetirizine Hcl (Cetirizine Hcl), 10 MG PO DAILY Dexlansoprazole (Dexilant), 60 MG PO QAM Docusate Sodium (Docusate Sodium), 100 MG PO QAM Docusate Sodium (Docusate Sodium), 200 MG PO HS Escitalopram Oxalate (Lexapro), 20 MG PO QAM Fluconazole (Diflucan), 400 MG PO QAM Gabapentin (Gabapentin), 600 MG PO TID Methadone Hcl (Dolophine), 20 MG PO Q8 Sennosides (Senna-Lax), 2 TABS PO AMHS Sulfa/Trimethoprim (Bactrim Ds 800MG/160MG), 1 TAB PO 3XWK Scheduled PRN Bisacodyl (Bisacodyl), 2 TAB PO HS PRN for Constipation Dexlansoprazole (Dexilant), 30 MG PO HS PRN for gerd Dronabinol (Marinol), 5 MG PO TIDM PRN for IMPROVED APPETITE Lorazepam (Ativan), 1 MG PO HS PRN for Anxiety Ondansetron Hcl (Zofran), 8 MG PO Q8 PRN for Nausea Oxycodone Immediate Rel Tab (Roxicodone Ir), 10-15 MG PO Q4 PRN for Pain Allergies Coded Allergies: Erythromycin (Verified Adverse Reaction, Intermediate, GI SYMPTOMS, 06/25/17 ) Prochlorperazine (Verified Adverse Reaction, Unknown, change in mental status, 06/25/17) Physical Exam Vital Signs Date Time Temp Pulse Resp B/P (MAP) Pulse Ox O2 Delivery O2 Flow Rate FiO2 11/20/17 14:38 37.3 81 14 103/62 100 11/20/17 14:21 81 14 103/62 100 Room Air 11/20/17 12:56 100 Room Air 11/20/17 12:12 80 21 100 11/20/17 11:12 88 24 98 11/20/17 11:11 88 26 105/70 97 Room Air 11/20/17 11:10 105/70 11/20/17 10:42 96 19 11/20/17 10:17 107/56 11/20/17 10:16 99 18 107/56 98 Room Air 11/20/17 10:14 98 11/20/17 10:08 37.3 11/20/17 09:14 37.5 133 18 80/57 97 Room Air Physical Exam GENERAL: Awake, alert, fatigued and chronically ill-appearing, in no distress HENT: Normocephalic, atraumatic. Oropharynx unremarkable. Mucous membranes are dry and cracked. EYES: Normal conjunctiva. Sclera non-icteric. NECK: Supple. No nuchal rigidity. FROM. No JVD. RESPIRATORY: Diminished at bases and otherwise clear to auscultation. CHEST: Mild tenderness to the right lower chest and abdomen. CARDIAC: Tachycardic rate, normal rhythm. Extremities warm and well perfused. Pulses equal. ABDOMEN: Soft, non-distended. Mild tenderness to palpation to right lower chest and abdomen. No rebound or guarding. No masses. RECTAL: Deferred. MUSCULOSKELETAL: Chest examination reveals no tenderness. The back is symmetrical on inspection without obvious abnormality. There is no CVA tenderness to palpation. No joint edema. LOWER EXTREMITIES: Calves are equal size bilaterally and non-tender. No edema. No discoloration. NEURO: Normal sensorium. No sensory or motor deficits noted. SKIN: No rash or jaundice noted. Medical Decision & Procedures ER Provider Diagnostic Interpretation: Radiology results as stated below per my review and radiologist interpretation: SINGLE VIEW CHEST CLINICAL HISTORY: Fever. Sepsis. FINDINGS: An AP, portable, upright chest radiograph is compared to study dated 11/16/2017 and correlated with chest CT dated 05/13/2017. The examination is degraded by portable technique and patient rotation. A right-sided central venous infusion port is unchanged in position. The cardiomediastinal silhouette is unremarkable. There is a trace left pleural effusion. A lobulated masslike lesion is again seen in the retrocardiac region and measures up to 6 cm. A trace left pleural effusion is noted. Patchy opacities are present the left lung base. No pneumothorax is seen. The bony thorax is grossly intact. IMPRESSION: 1. There is a trace left pleural effusion and patchy airspace opacities at the left lung base. Correlate clinically for evidence of pneumonia. 2. A 6 cm lobulated masslike density is again seen in the retrocardiac region. 3. The right lung appears clear. Electronically signed by: Antoine Kennedy M.D. 11/20/2017 10:06 AM Laboratory Results 11/20/17 11:13 11/20/17 09:55 Test 11/20/17 09:55 11/20/17 11:11 11/20/17 11:13 11/20/17 11:35 Prothrombin Time 11.1 SECONDS (9.0-12.0) Prothromb Time International Ratio 1.1 (0.9-1.1) Anion Gap 9.0 mmol/L (3-11) Est Creatinine Clear Calc Drug Dose 57.9 ml/min Estimated GFR () 48.1 Estimated GFR (Non- 41.5 BUN/Creatinine Ratio 16.4 (10-20) Lactic Acid Level 1.5 mmol/L (0.4-2.0) Calcium Level 9.3 mg/dl (8.5-10.1) Phosphorus Level 1.8 mg/dl (2.5-4.9) Magnesium Level 1.4 mg/dl (1.8-2.4) Total Bilirubin 0.9 mg/dl (0.2-1) Direct Bilirubin 0.5 mg/dl (0-0.2) Aspartate Amino Transf (AST/SGOT) 665 U/L (15-37) Alanine Aminotransferase (ALT/SGPT) 571 U/L (12-78) Alkaline Phosphatase 395 U/L (45-117) Troponin I < 0.015 ng/ml (0-0.045) Pro-B-Type Natriuretic Peptide 301 pg/ml (0-450) Total Protein 5.7 gm/dl (6.4-8.2) Albumin 2.4 gm/dl (3.4-5.0) Lipase 114 U/L (73-393) Osmolality 276 mOsm/kg (280-300) Red Blood Count 1.96 M/uL (4.7-6.1) Mean Corpuscular Volume 104.6 fL (80-100) Mean Corpuscular Hemoglobin 35.7 pg (25-34) Mean Corpuscular Hemoglobin Concent 34.1 g/dl (32-36) RDW Standard Deviation 68.0 fL (36.4-46.3) RDW Coefficient of Variation 17.7 % (11.5-14.5) Mean Platelet Volume 8.6 fL (7.4-10.4) Urine Color YELLOW Urine Appearance CLEAR (CLEAR) Urine pH 6.0 (4.5-7.5) Urine Specific [place] 1.014 (1.000-1.030) Urine Protein 1+ (NEG) Urine Glucose (UA) NEG (NEG) Urine Ketones NEG (NEG) Urine Occult Blood TRACE (NEG) Urine Nitrite NEG (NEG) Urine Bilirubin NEG (NEG) Urine Urobilinogen NEG (NEG) Urine Leukocyte Esterase NEG (NEG) Urine WBC (Auto) 1-5 /hpf (0-5) Urine RBC (Auto) 0-4 /hpf (0-4) Urine Hyaline Casts (Auto) 1-5 /lpf (0-5) Urine Epithelial Cells (Auto) 10-20 /lpf (0-5) Urine Bacteria (Auto) NEG (NEG) Urine Crystals AMORPHOUS SEDIMENT (NONE Urine Pathogenic Casts 5-10 GRANULAR CASTS /lpf (0) Urine Yeast (Auto) (NONE PRSENT) Urine Osmolality 372 mOms/kg (500-800) Laboratory results reviewed by me Medications Administered Medications (Trade) Dose Ordered Sig/Sdiney Route Start Time Stop Time Status Last Admin Dose Admin Sodium Chloride 2,000 ml @ 999 mls/hr Q2H1M STAT IV 11/20/17 09:34 11/20/17 11:34 DC 11/20/17 10:07 999 MLS/HR Lidocaine (Lidoderm Patch 5%) 1 patch NOW STAT TD 11/20/17 10:20 11/20/17 10:21 DC 11/20/17 11:29 1 PATCH Fentanyl Citrate (Fentanyl Inj) 50 mcg NOW STAT IV 11/20/17 10:20 11/20/17 10:21 DC 11/20/17 10:56 50 MCG Vancomycin HCl 2000 mg/Sodium Chloride 540 ml @ 200 mls/hr ONE STAT IV 11/20/17 10:44 11/20/17 13:25 DC 11/20/17 12:17 200 MLS/HR Piperacillin Sod/ Tazobactam Sod (Zosyn Iv) 4.5 gm NOW STAT IV 11/20/17 10:44 11/20/17 10:48 DC 11/20/17 11:31 4.5 GM Magnesium Sulfate (Magnesium Sulfate 1gm / D5W) 2 gm NOW STAT IV 11/20/17 10:44 11/20/17 10:48 DC 11/20/17 11:31 2 GM ECG Per My Interpretation Indication: chest pain, other (fever) Rate (beats per minute): 95 Rhythm: normal sinus Findings: no acute ischemic change, no ectopy, other (Normal axis, no NONI) ED Course 0924: The patient was evaluated in room B6. A complete history and physical exam was performed. 1034: I updated the patient at this time. 1151: I discussed the case with Dr. Sosa - [facility]. He agrees with admission and treatment with broad spectrum antibiotics. He also notes that he has a low threshold for antifungals if results indicate. 1202: I discussed the case with Antoine Manzo PA-C. He will evaluate the patient for further treatment. Medical Decision I reviewed the patient's past medical history, medications, and the nursing notes as described above. Differential diagnosis: Etiologies such as infections, reactive airway disease, pneumonia, pneumothorax , COPD, CHF, cardiac ischemia, pulmonary embolism, musculoskeletal, gastrointestinal, as well as others were entertained. The patient is a 32-year-old gentleman with a past medical history of large B- cell lymphoma with metastatic disease who presents emergency department with worsening chest pain, shortness of breath, fever since yesterday per hpi. On arrival the patient is fatigued and chronically ill-appearing but no acute distress, afebrile with heart rate in the 130s systolic blood pressure in the 80s but otherwise mentating normally. Labs notable for hyponatremia of 129. Phosphorus 1.8, magnesium 1.4 and were repleted. Cr. 2.0 up from 1.8. Worsening trend of the patient's transaminitis with AST 665, ALT 571, alk phos 395. On AST 342, ALT 301, alk phos 295. Otherwise, lactate within normal limits. Chest x-ray with question patchy airspace opacities in the left lung base. Given the patient's history of single kidney with CKD, IV contrast deferred at this time. However, bilateral lower extremity duplex is ordered to evaluate for DVT. Otherwise, CT of the chest, abdomen, pelvis ordered as well and pending. Will treat empirically with vancomycin and Zosyn given the patient's question of pneumonia on chest x-ray and was still neutropenic on 11/18. Case was discussed with Dr. Sosa, patient's oncologist Nohelia Aaron, ([phone]) who agrees with plan for admission for broad-spectrum antibiotics. Recommends low threshold to begin antifungals if CT is suggestive of fungal infection. Given the patient's downtrending labs with pancytopenia and fever recommends Neupogen 400 mcg per day until neutropenia resolves. Otherwise, VS improved with HR 80s and SBP 100s and stable. Case was d/w Antoine Gutierrez, [facility], who will evaluate the patient for admission. Medication Reconcilliation Current Medication List: was personally reviewed by me Blood Pressure Screening Patient's blood pressure: Normal blood pressure Consults Time Called: 1140 Consulting Physician: Dr. Sosa - [facility] Returned Call: 1151 I discussed the case with Dr. Sosa - [facility]. He agrees with admission and treatment with broad spectrum antibiotics. He also notes that he has a low threshold for antifungals if results indicate. Additional Consults: Time Called: 1157 Consulted Physician: Antoine Manzo PA-C Returned Call: 1202 Additional Comments: I discussed the case with Antoine Manzo PA-C. He will evaluate the patient for further treatment. Impression Primary Impression: Neutropenic fever Additional Impressions: Sepsis Pneumonia Critical Care I have personally spent greater than 35 minutes of critical care time in the direct management of this patient. This includes bedside care, interpretation of diagnostic studies, and testing, discussion with consultants, patient, and family members, and other required patient management activities. This 35 minutes is in excess of all separately billable procedures. Scribe Attestation The scribe's documentation has been prepared under my direction and personally reviewed by me in its entirety. I confirm that the note above accurately reflects all work, treatment, procedures, and medical decision making performed by me. Departure Information Dispostion Being Evaluated By Hospitalist Referrals No Doctor, Assigned (PCP) Patient Instructions My [facility] Problem Qualifiers
[2017-11-20 11:36] LABS: HEMATOCRIT 20.5 % (42-52); MEAN CELL VOLUME 104.6 fL (80-100); MEAN CORPUSCULAR HEMOGLOBIN 35.7 pg (25-34); MEAN CORPUSCULAR HGB CONC 34.1 g/dl (32-36); MEAN PLATELET VOLUME 8.6 fL (7.4-10.4); PLATELET COUNT 12 K/uL (130-400); RED CELL DISTRIBUTION WIDTH CV 17.7 % (11.5-14.5); WHITE BLOOD COUNT 0.37 K/uL (4.8-10.8)
[2017-11-20] MEDS ORDERED: POTASSIUM PHOSPHATE INJ 6 MMOL in SODIUM CHLORIDE 0.9% 250ML 250 ML IV ONE (12:30)
--- NOTE | 2017-11-20 12:33 | DIAGNOSTIC IMAGING REPORT ---
CT SCAN OF THE CHEST, ABDOMEN, AND PELVIS WITHOUT IV CONTRAST CLINICAL HISTORY: Fever and dyspnea. Lymphoma. COMPARISON STUDY: Chest CT scans dated 05/13/2017 and 12/15/2016. Abdominal CT dated 11/16/2017. TECHNIQUE: CT scan of the chest, abdomen, and pelvis was performed from the thoracic inlet to the proximal femora. Images are reviewed in the axial, sagittal, and coronal planes. IV contrast was not administered as per the referring clinician. Note that the examination was performed in significantly suboptimal fashion without oral and IV contrast.A dose lowering technique was utilized adhering to the principles of ALARA. CT DOSE: 1216.21 mGy.cm FINDINGS: CHEST: Thyroid: Imaged portions of the thyroid gland are normal in size and attenuation. Thoracic aorta: The thoracic aorta is normal in caliber and demonstrates standard 3-vessel arch anatomy. A right internal jugular central venous infusion port is in place. Heart: The heart is normal in size and without pericardial effusion. There is diminished attenuation of the cardiac blood pool as compared to the myocardium suggesting anemia. Lungs and pleural spaces: There is a 6.0 x 5.7 cm lobulated low-attenuation mass lesion in the left lower lobe seen on image #208. This has increased in size from 05/13/2017. A 2.4 cm focus of pleural-based nodularity is seen at the left lung base image #253. There is mild diffuse pleural thickening at the left lung base, with numerous additional smaller foci of pleural-based nodularity (images #184, #191, #210, and #217). There is a small left pleural effusion with associated atelectasis. No airspace consolidation is seen typical for pneumonia. Subpleural scarring is again seen in the left upper lobe. A 5 mm left upper lobe nodule is again seen on image #153. This has decreased in size from 05/13/2017. A 5 mm right lower lobe pulmonary nodule seen image #211 end a 3 mm right upper lobe pulmonary nodule seen on image #138 are new from 05/13/2017. The trachea and central airways are patent. Mediastinum: There is no mediastinal lymphadenopathy. Kirsten: Not well assessed without IV contrast. Axillae: There is no axillary lymphadenopathy. Bony thorax: No there is a mild compression deformity of T12 with a permeative mixed lytic and blastic lesion. This is seen on image #306. A sclerotic lesion is also seen in the left lateral seventh rib on image #173. Destructive versus postsurgical change is seen involving the left posterior lower ribs Soft tissues: Mild gynecomastia is noted. Scarring is a soft tissue lesion is again suggested in the left chest wall on image #174. ABDOMEN AND PELVIS: Liver: The unenhanced liver is markedly enlarged, measuring 28.0 cm and length. There is nodularity of the hepatic surface contour. Hepatic lesions seen by ultrasound are not well visualized by CT. There is no intrahepatic or ductal dilatation. Gallbladder: The gallbladder wall is markedly thickened and edematous. There is no surrounding stranding or convincing evidence of acute cholecystitis. Spleen: Normal in size and attenuation. Pancreas: The unenhanced pancreas is atrophic and grossly unremarkable. Adrenal glands: Unremarkable. Kidneys: The right kidney is markedly atrophic and hydronephrotic. There are numerous calcified lesions in the right kidney which are similar in appearance to previous. The unenhanced left kidney is normal in size And without hydronephrosis. Cortical scarring is seen in the lower pole of left kidney. No renal calculi are identified. There is no evidence of contour deforming mass lesion.. Abdominal vasculature: The abdominal aorta is normal in course and caliber. Bowel: There is moderate to severe constipation. No bowel obstruction is identified. The appendix is normal as imaged. Peritoneum: There is trace free fluid in the pelvis. No intraperitoneal free air is seen. Lymphadenopathy: A 1.5 x 1.0 cm left cardiophrenic node is seen on image #[address]. An enlarged node at the esophageal hiatus is seen on image #57 and measures 1.9 x 1.8 cm. These are similar to 11/16/2017 but new from 05/13/2017. Calcified left periaortic node on image #175 is unchanged from previous and measures 3.0 x 2.3 cm. This likely represents treated disease. There is no mesenteric, iliac chain, pelvic sidewall, or inguinal lymphadenopathy. Pelvic viscera: The bladder, prostate, and seminal vesicles are normal as visualized. Skeletal structures: No destructive lesions are seen involving the lumbosacral spine and bony pelvis. Soft tissues: Numerous subcutaneous nodules are present within the left flank seen on images #149, #164, #171, #200, and #210. The largest measures up to 1.4 cm. IMPRESSION: 1. Suboptimal examination without oral and IV contrast. 2. There is evidence of progressive metastatic disease as compared to 05/13/2017. 3. There is a 6 cm left lower lobe pulmonary mass lesion, as well as numerous pleural-based nodules at the left lung base. This is similar in appearance to 11/16/2017 but significantly progressed from 05/13/2017. 4. There are new subcentimeter nodules in the right upper and right lower lobes consistent with metastatic disease. 5. There are pathologically enlarged lymph nodes at the esophageal hiatus and in the left cardiophrenic region which are similar to 11/16/2017 but new from 05/13/2017, also consistent with metastatic disease. 6. Marked hepatomegaly. This likely represents lymphomatous involvement. Lesions seen by ultrasound were not apparent on this unenhanced CT scan. 7. There are numerous soft tissue implants identified in the left abdominal wall consistent with cutaneous disease. 8. There is a small left pleural effusion. 9. Findings suggest anemia. 10. There is nonspecific gallbladder thickening and edema, likely related to adjacent hepatocellular disease. There is no convincing CT evidence of acute cholecystitis. 11. The right kidney is atrophic and hydronephrotic, and contains calcified lesions. Additionally, there is a calcified left periaortic node. This likely represents treated disease and these findings are similar to prior studies. 12. Moderate constipation. 13. Destructive lesions involving the body of T12 and left sided ribs are similar to previous. 14. There is trace free fluid in the pelvis. 15. Additional findings as above. Electronically signed by: Antoine Kennedy M.D. 11/20/2017 12:32 PM Dictated Date/Time: 11/20/2017 12:03 PM
[2017-11-20] MEDS ORDERED: MAGIC SWIZZLE PO PRN (13:45)
[2017-11-20] MEDS ORDERED: LORAZEPAM 1 MG TAB PO PRN (13:45)
[2017-11-20] MEDS ORDERED: POLYETHYLENE (MIRALAX) 17 GM PACK PO PRN (13:45)
[2017-11-20] MEDS ORDERED: OXYCODONE HCL IR 5 MG TAB (IMMEDIATE RELEASE) PO PRN (13:45)
[2017-11-20] MEDS ORDERED: ALUMINUM/MAGNESIUM/SIMETH (MAALOX MAX) 30 ML UDC PO PRN (13:45)
[2017-11-20] MEDS ORDERED: DRONABINOL 2.5 MG CAP PO PRN (13:45)
[2017-11-20] MEDS ORDERED: PIPERACILL/TAZOBAC CONSULT ACTIVE PRN (13:45)
[2017-11-20] MEDS ORDERED: MAGNESIUM HYDROXIDE SUSP 30 ML UDC PO PRN (13:45)
--- NOTE | 2017-11-20 14:19 | DIAGNOSTIC IMAGING REPORT ---
VENOUS DOPPLER LWR EXT BILA HISTORY: Pain. Edema. lymphoma, fever, cp, sob COMPARISON STUDY: None. FINDINGS: There is normal compressibility, flow, and augmentation within the bilateral lower extremity deep venous systems. IMPRESSION: No DVT within the right or left lower extremity. The above report was generated using voice recognition software. It may contain grammatical, syntax or spelling errors. Electronically signed by: Ivan Moreno M.D. 11/20/2017 2:18 PM Dictated Date/Time: 11/20/2017 2:17 PM
--- NOTE | 2017-11-20 15:08 | History and Physical ---
History & Physical Date & Time of Service: Nov 20, 2017 at 14:28 Chief Complaint: Fever, Abd Pain (Ruq), Sob - Cancer Pt Primary Care Physician: Dagoberto Carbone MD History of Present Illness Source: patient, spouse, clinic records, hospital records This is a 32 y/o male with a history of metastatic B cell lymphoma, pancytopenia , neuropathic pain, anxiety/depression, CKD stage III, and GERD who presented to the ED on 11/20 with pancytopenia and fevers at home. The patient was recently admitted here on 11/16 for neutropenic fever. He was discharged 11/18. Last night he developed fevers up to 101.6F. He reports feeling weak and fatigued. He complains of a right sided chest pain that started yesterday. He states it is a constant aching pain, at times a 6/10 in severity. It is exacerbated by deep breaths. He complains of dyspnea on exertion but denies shortness of breath at rest. He reports a productive cough, but states that this is normal for him and denies any acute changes. He complains of diarrhea. The patient denies chills, sweats, palpitations, claudication, wheezing, nausea, vomiting, abdominal pain, dysuria, hematuria, urinary retention, paralysis, focal motor weakness, numbness and tingling. Past Medical/Surgical History Medical Problems: (1) Acute kidney injury (2) Anemia (3) Febrile neutropenia (4) Febrile neutropenia (5) Fever (6) Fever (7) GERD (gastroesophageal reflux disease) (8) Hypotension (9) Influenza (10) Influenza (11) Left-sided back pain (12) Lymphoma (13) Neutropenia (14) Neutropenic fever (15) Neutropenic fever (16) Pancytopenia (17) Pancytopenia (18) Pancytopenia (19) Pneumonia (20) Recurrent lymphoma (21) Sore throat Surgical Problems: (1) History of liver biopsy Metastatic B cell lymphoma H/o pancytopenia Neuropathic pain Anxiety and depression CKD stage III GERD Family History Cancer (lymphoma) Heart disease Myocardial infarction Social History Smoking Status: Never Smoker Smokeless Tobacco Use: No Alcohol Use: occasionally Drug Use: none Marital Status: Housing status: lives with family Occupational Status: employed Immunizations History of Influenza Vaccine: No History of Tetanus Vaccine?: Unknown History of Pneumococcal: Unknown History of Hepatitis B Vaccine: Unknown Allergies Coded Allergies: Erythromycin (Verified Adverse Reaction, Intermediate, GI SYMPTOMS, 06/25/17 ) Prochlorperazine (Verified Adverse Reaction, Unknown, change in mental status, 06/25/17) Home Medications Scheduled Acyclovir (Zovirax), 800 MG PO BID Cetirizine Hcl (Cetirizine Hcl), 10 MG PO DAILY Dexlansoprazole (Dexilant), 60 MG PO QAM Docusate Sodium (Docusate Sodium), 100 MG PO QAM Docusate Sodium (Docusate Sodium), 200 MG PO HS Escitalopram Oxalate (Lexapro), 20 MG PO QAM Fluconazole (Diflucan), 400 MG PO QAM Gabapentin (Gabapentin), 600 MG PO TID Methadone Hcl (Dolophine), 20 MG PO Q8 Sennosides (Senna-Lax), 2 TABS PO AMHS Sulfa/Trimethoprim (Bactrim Ds 800MG/160MG), 1 TAB PO 3XWK Scheduled PRN Bisacodyl (Bisacodyl), 2 TAB PO HS PRN for Constipation Dexlansoprazole (Dexilant), 30 MG PO HS PRN for gerd Dronabinol (Marinol), 5 MG PO TIDM PRN for IMPROVED APPETITE Lorazepam (Ativan), 1 MG PO HS PRN for Anxiety Ondansetron Hcl (Zofran), 8 MG PO Q8 PRN for Nausea Oxycodone Immediate Rel Tab (Roxicodone Ir), 10-15 MG PO Q4 PRN for Pain Review of Systems Constitutional: +Weak, fatigued. Fever at home. No chills, No sweats Eyes: No worsening of vision, No eye pain, No diplopia ENT: No hearing loss, No nasal symptoms, No trouble swallowing Respiratory/chest: +Cough (chronic). MCKEON. Right chest pleuritic pain. No wheezing Cardiovascular: No left sided chest pain, No claudication, No palpitations Abdomen: No pain, No nausea, No vomiting Musculoskeletal: No joint pain, No muscle pain, No swelling Genitourinary - Male: No dysuria, No urinary retention, No hematuria Neurologic: No paralysis, No weakness, No numbness/tingling Integumentary: No rash, No itch, No color change Physical Exam Vital Signs Date Time Temp Pulse Resp B/P (MAP) Pulse Ox O2 Delivery O2 Flow Rate FiO2 11/20/17 14:21 81 14 103/62 100 Room Air 11/20/17 12:56 100 Room Air 11/20/17 12:12 80 21 100 11/20/17 11:12 88 24 98 11/20/17 11:11 88 26 105/70 97 Room Air 11/20/17 11:10 105/70 11/20/17 10:42 96 19 11/20/17 10:17 107/56 11/20/17 10:16 99 18 107/56 98 Room Air 11/20/17 10:14 98 11/20/17 10:08 37.3 11/20/17 09:14 37.5 133 18 80/57 97 Room Air General appearance: +Appears chronically ill and fatigued. Well-developed, well-nourished, no apparent distress Head: Normocephalic, atraumatic Eyes: Normal inspection, PERRL, EOMI ENT: +Dry oral mucosa. Normal ENT inspection, hearing grossly normal, pharynx normal Neck: Supple, no JVD, trachea midline Respiratory/Chest: +Port right chest. Lungs clear to auscultation, normal breath sounds, no respiratory distress Cardiovascular: Regular rate & rhythm, no gallop, no murmur Abdomen/GI: Normal bowel sounds, non-tender, soft Extremities/Musculoskeletal: Normal inspection, no calf tenderness, no pedal edema Neurological/Psych: +Somewhat lethargic but awake and answering questions appropriately. Normal mood/affect, oriented x 3 Skin: +Pallor. Warm/dry, no rash Diagnostics Laboratory Results Results Past 24 Hours Test 11/20/17 09:55 11/20/17 11:11 11/20/17 11:13 11/20/17 11:35 Range/Units Prothrombin Time 11.1 9.0-12.0 SECONDS Prothromb Time International Ratio 1.1 0.9-1.1 Sodium Level 129 136-145 mmol/L Potassium Level 3.9 3.5-5.1 mmol/L Chloride Level 97 98-107 mmol/L Carbon Dioxide Level 23 21-32 mmol/L Anion Gap 9.0 3-11 mmol/L Blood Urea Nitrogen 33 7-18 mg/dl Creatinine 2.03 0.60-1.40 mg/dl Est Creatinine Clear Calc Drug Dose 57.9 ml/min Estimated GFR () 48.1 Estimated GFR (Non- 41.5 BUN/Creatinine Ratio 16.4 10-20 Random Glucose 91 70-99 mg/dl Lactic Acid Level 1.5 0.4-2.0 mmol/L Calcium Level 9.3 8.5-10.1 mg/dl Phosphorus Level 1.8 2.5-4.9 mg/dl Magnesium Level 1.4 1.8-2.4 mg/dl Total Bilirubin 0.9 0.2-1 mg/dl Direct Bilirubin 0.5 0-0.2 mg/dl Aspartate Amino Transf (AST/SGOT) 665 15-37 U/L Alanine Aminotransferase (ALT/SGPT) 571 12-78 U/L Alkaline Phosphatase 395 45-117 U/L Troponin I < 0.015 0-0.045 ng/ml Pro-B-Type Natriuretic Peptide 301 0-450 pg/ml Total Protein 5.7 6.4-8.2 gm/dl Albumin 2.4 3.4-5.0 gm/dl Lipase 114 73-393 U/L Osmolality 276 280-300 mOsm/kg White Blood Count 0.37 4.8-10.8 K/uL Red Blood Count 1.96 4.7-6.1 M/uL Hemoglobin 7.0 14.0-18.0 g/dL Hematocrit 20.5 42-52 % Mean Corpuscular Volume 104.6 80-100 fL Mean Corpuscular Hemoglobin 35.7 25-34 pg Mean Corpuscular Hemoglobin Concent 34.1 32-36 g/dl RDW Standard Deviation 68.0 36.4-46.3 fL RDW Coefficient of Variation 17.7 11.5-14.5 % Platelet Count 12 130-400 K/uL Mean Platelet Volume 8.6 7.4-10.4 fL Urine Color YELLOW Urine Appearance CLEAR CLEAR Urine pH 6.0 4.5-7.5 Urine Specific [place] 1.014 1.000-1.030 Urine Protein 1+ NEG Urine Glucose (UA) NEG NEG Urine Ketones NEG NEG Urine Occult Blood TRACE NEG Urine Nitrite NEG NEG Urine Bilirubin NEG NEG Urine Urobilinogen NEG NEG Urine Leukocyte Esterase NEG NEG Urine WBC (Auto) 1-5 0-5 /hpf Urine RBC (Auto) 0-4 0-4 /hpf Urine Hyaline Casts (Auto) 1-5 0-5 /lpf Urine Epithelial Cells (Auto) 10-20 0-5 /lpf Urine Bacteria (Auto) NEG NEG Urine Crystals AMORPHOUS SEDIMENT NONE PRSENT Urine Pathogenic Casts 5-10 GRANULAR CASTS 0 /lpf Urine Yeast (Auto) NONE PRSENT Urine Osmolality 372 500-800 mOms/kg Microbiology Results 11/20/17 Blood Culture, Received Pending 11/20/17 Blood Culture, Received Pending 11/20/17 Urine Culture, Received Pending Diagnostic Radiology Reviewed the following studies and agree with interpretation as follows: SINGLE VIEW CHEST CLINICAL HISTORY: Fever. Sepsis. FINDINGS: An AP, portable, upright chest radiograph is compared to study dated 11/16/2017 and correlated with chest CT dated 05/13/2017. The examination is degraded by portable technique and patient rotation. A right-sided central venous infusion port is unchanged in position. The cardiomediastinal silhouette is unremarkable. There is a trace left pleural effusion. A lobulated masslike lesion is again seen in the retrocardiac region and measures up to 6 cm. A trace left pleural effusion is noted. Patchy opacities are present the left lung base. No pneumothorax is seen. The bony thorax is grossly intact. IMPRESSION: 1. There is a trace left pleural effusion and patchy airspace opacities at the left lung base. Correlate clinically for evidence of pneumonia. 2. A 6 cm lobulated masslike density is again seen in the retrocardiac region. 3. The right lung appears clear. CT SCAN OF THE CHEST, ABDOMEN, AND PELVIS WITHOUT IV CONTRAST CLINICAL HISTORY: Fever and dyspnea. Lymphoma. COMPARISON STUDY: Chest CT scans dated 05/13/2017 and 12/15/2016. Abdominal CT dated 11/16/2017. TECHNIQUE: CT scan of the chest, abdomen, and pelvis was performed from the thoracic inlet to the proximal femora. Images are reviewed in the axial, sagittal, and coronal planes. IV contrast was not administered as per the referring clinician. Note that the examination was performed in significantly suboptimal fashion without oral and IV contrast.A dose lowering technique was utilized adhering to the principles of ALARA. CT DOSE: 1216.21 mGy.cm FINDINGS: CHEST: Thyroid: Imaged portions of the thyroid gland are normal in size and attenuation. Thoracic aorta: The thoracic aorta is normal in caliber and demonstrates standard 3-vessel arch anatomy. A right internal jugular central venous infusion port is in place. Heart: The heart is normal in size and without pericardial effusion. There is diminished attenuation of the cardiac blood pool as compared to the myocardium suggesting anemia. Lungs and pleural spaces: There is a 6.0 x 5.7 cm lobulated low-attenuation mass lesion in the left lower lobe seen on image #208. This has increased in size from 05/13/2017. A 2.4 cm focus of pleural-based nodularity is seen at the left lung base image #253. There is mild diffuse pleural thickening at the left lung base, with numerous additional smaller foci of pleural-based nodularity (images #184, #191, #210, and #217). There is a small left pleural effusion with associated atelectasis. No airspace consolidation is seen typical for pneumonia. Subpleural scarring is again seen in the left upper lobe. A 5 mm left upper lobe nodule is again seen on image #153. This has decreased in size from 05/13/2017. A 5 mm right lower lobe pulmonary nodule seen image #211 end a 3 mm right upper lobe pulmonary nodule seen on image #138 are new from 05/13/2017. The trachea and central airways are patent. Mediastinum: There is no mediastinal lymphadenopathy. Kirsten: Not well assessed without IV contrast. Axillae: There is no axillary lymphadenopathy. Bony thorax: No there is a mild compression deformity of T12 with a permeative mixed lytic and blastic lesion. This is seen on image #306. A sclerotic lesion is also seen in the left lateral seventh rib on image #173. Destructive versus postsurgical change is seen involving the left posterior lower ribs Soft tissues: Mild gynecomastia is noted. Scarring is a soft tissue lesion is again suggested in the left chest wall on image #174. ABDOMEN AND PELVIS: Liver: The unenhanced liver is markedly enlarged, measuring 28.0 cm and length. There is nodularity of the hepatic surface contour. Hepatic lesions seen by ultrasound are not well visualized by CT. There is no intrahepatic or ductal dilatation. Gallbladder: The gallbladder wall is markedly thickened and edematous. There is no surrounding stranding or convincing evidence of acute cholecystitis. Spleen: Normal in size and attenuation. Pancreas: The unenhanced pancreas is atrophic and grossly unremarkable. Adrenal glands: Unremarkable. Kidneys: The right kidney is markedly atrophic and hydronephrotic. There are numerous calcified lesions in the right kidney which are similar in appearance to previous. The unenhanced left kidney is normal in size And without hydronephrosis. Cortical scarring is seen in the lower pole of left kidney. No renal calculi are identified. There is no evidence of contour deforming mass lesion.. Abdominal vasculature: The abdominal aorta is normal in course and caliber. Bowel: There is moderate to severe constipation. No bowel obstruction is identified. The appendix is normal as imaged. Peritoneum: There is trace free fluid in the pelvis. No intraperitoneal free air is seen. Lymphadenopathy: A 1.5 x 1.0 cm left cardiophrenic node is seen on image #[address]. An enlarged node at the esophageal hiatus is seen on image #57 and measures 1.9 x 1.8 cm. These are similar to 11/16/2017 but new from 05/13/2017. Calcified left periaortic node on image #175 is unchanged from previous and measures 3.0 x 2.3 cm. This likely represents treated disease. There is no mesenteric, iliac chain, pelvic sidewall, or inguinal lymphadenopathy. Pelvic viscera: The bladder, prostate, and seminal vesicles are normal as visualized. Skeletal structures: No destructive lesions are seen involving the lumbosacral spine and bony pelvis. Soft tissues: Numerous subcutaneous nodules are present within the left flank seen on images #149, #164, #171, #200, and #210. The largest measures up to 1.4 cm. IMPRESSION: 1. Suboptimal examination without oral and IV contrast. 2. There is evidence of progressive metastatic disease as compared to 05/13/2017. 3. There is a 6 cm left lower lobe pulmonary mass lesion, as well as numerous pleural-based nodules at the left lung base. This is similar in appearance to 11/16/2017 but significantly progressed from 05/13/2017. 4. There are new subcentimeter nodules in the right upper and right lower lobes consistent with metastatic disease. 5. There are pathologically enlarged lymph nodes at the esophageal hiatus and in the left cardiophrenic region which are similar to 11/16/2017 but new from 05/13/2017, also consistent with metastatic disease. 6. Marked hepatomegaly. This likely represents lymphomatous involvement. Lesions seen by ultrasound were not apparent on this unenhanced CT scan. 7. There are numerous soft tissue implants identified in the left abdominal wall consistent with cutaneous disease. 8. There is a small left pleural effusion. 9. Findings suggest anemia. 10. There is nonspecific gallbladder thickening and edema, likely related to adjacent hepatocellular disease. There is no convincing CT evidence of acute cholecystitis. 11. The right kidney is atrophic and hydronephrotic, and contains calcified lesions. Additionally, there is a calcified left periaortic node. This likely represents treated disease and these findings are similar to prior studies. 12. Moderate constipation. 13. Destructive lesions involving the body of T12 and left sided ribs are similar to previous. 14. There is trace free fluid in the pelvis. 15. Additional findings as above. VENOUS DOPPLER LWR EXT BILA HISTORY: Pain. Edema. lymphoma, fever, cp, sob COMPARISON STUDY: None. FINDINGS: There is normal compressibility, flow, and augmentation within the bilateral lower extremity deep venous systems. IMPRESSION: No DVT within the right or left lower extremity. EKG Reviewed EKG and agree with interpretation as follows: 95 bpm, normal sinus rhythm Impression Assessment and Plan 32 y/o male with a history of metastatic B cell lymphoma, pancytopenia, neuropathic pain, anxiety/depression, CKD stage III, and GERD who presented to the ED on 11/20 with pancytopenia and fevers at home. Pt afebrile in ER, VSS. CXR shows trace left pleural effusions and patchy airspace opacities in left lower lobe, and 6 cm retrocardiac lobulated mass like density again noted. CT of chest, abdomen and pelvis shows 6 cm LLL mass lesion similar to 11/16/17 study , new subcentimeter nodules in RUL and RLL c/w mets, pathologically enlarged lymph nodes at esophageal hiatus and left cardiophrenic region similar to 11/16, marked hepatomegaly likely d/t lymphomatous involvement, soft tissue implants in left abdominal wall, and destructive lesions at T12 similar to previous. Pancytopenia worse compared to 11/18. Pancytopenia, possible neutropenic fever, symptomatic anemia -Admit to med/surg as hemodynamically stable, no signs of bleeding -Hgb 7.0 on admission, symptomatic w/dyspnea, weakness, fatigue. Will transfuse 2 units irradiated blood -Trend H&H q6h -PLT 12 on admission, will hold off on platelet products as no active bleeding -Consult heme/onc. Pt follows w/Dr. Sosa ([phone]) at [facility] and Dr. Kris Bradford locally -Hold off Neupogen until heme/onc sees -Neutropenic precautions Fevers, possible PNA--possible PNA on CXR but no consolidations seen on chest CT -Dr. Sosa had recommended broad spectrum antibiotics, will continue Zosyn and vanc for now until oncology sees. Fever may be due to lymphoma or neutropenia -Pt received 2L NSS in ED, will hold off further IVF for now, pt is eating -Lactic acid WNL Transaminitis -AST, ALT, alk phos have significantly increased since 2 days ago, AST has doubled -INR WNL -Continue to monitor Acute kidney injury on CKD stage III--pt states fluid intake has been decreased last few days due to ulcers/mouth pain -Creatinine 2.03 on admission, baseline 1.6-1.8 -Continue to monitor, 2L IVF in ED Metastatic B cell lymphoma--mets to lung, liver -Heme/onc as above -Pt just started new chemo regimen 11/15, scheduled for [id number] -Continue acyclovir, fluconazole, and Bactrim for chronic suppression Oral ulcers secondary to chemo -Magic Swizzle q6h prn Neuropathic pain -Continue gabapentin 600 mg PO q8h, methadone 20 mg PO q8h, oxycodone 10 mg PO q4h prn pain Anxiety, depression -Continue Lexapro 20 mg PO qd and Ativan 1 mg PO hs prn GERD -Pt may continue Dexilant brought from home DVT prophylaxis -No chemical ppx due to severe anemia and thrombocytopenia -GILBERTO cuellar and SCDs Code Status -Level I, FULL RESUSCITATION STATUS Advanced Directives Existing Living Will: Yes Existing Power of Swager Operator: Yes (HUMAIRA ) Resuscitation Status VTE Prophylaxis Will order VTE Prophylaxis: Yes
[2017-11-20] MEDS ORDERED: LIDOCAINE HCL 2% VISCOUS SOLN 1.25 ML, DiphenhydrAMINE HCL SYRUP 3.125 MG, ALUMINUM/MAG... MT PRN ×4 (15:30)
[2017-11-20] MEDS: LIDODERM (LIDOCAINE) PATCH 5% TD SCH (16:00)
[2017-11-20] MEDS ORDERED: CEFEPIME CONSULT ACTIVE PRN (16:45)
[2017-11-20] MEDS ORDERED: METHADONE HCL 10 MG TAB PO STA (16:59)
[2017-11-20] MEDS ORDERED: GABAPENTIN 600 MG TAB PO STA (16:59)
[2017-11-20] MEDS ORDERED: NURSING DECISION MEDICATION ORDER SCH (17:00)
[2017-11-20] MEDS ORDERED: ONDANSETRON 8 MG TAB PO PRN ×2 (17:15→20:00)
[2017-11-20] MEDS ORDERED: LIDOCAINE HCL 2% VISCOUS SOLN 60 ML, DiphenhydrAMINE HCL SYRUP 150 MG, ALUMINUM/MAGNESI... MT PRN ×4 (17:30)
[2017-11-20] MEDS ORDERED: PIPERACILL/TAZOBAC IV 3.375 GM in DEXTROSE 5% 100ML 100 ML IV SCH (18:00)
[2017-11-20] MEDS: CEFEPIME IV 2,000 MG in SYRINGE 7.5 ML IV SCH (18:20)
[2017-11-20] MEDS: ACETAMINOPHEN 325 MG TAB PO PRN (19:19)
[2017-11-20] MEDS ORDERED: METHADONE HCL 10 MG TAB PO SCH (20:00)
[2017-11-20] MEDS ORDERED: GABAPENTIN 600 MG TAB PO SCH (20:00)
[2017-11-20] MEDS: ACYCLOVIR 400 MG TAB PO SCH (20:42)
[2017-11-20] MEDS ORDERED: VANCOMYCIN IV 1,000 MG in SODIUM CHLORIDE 0.9% 250ML 250 ML IV SCH (21:00)
[2017-11-20] MEDS ORDERED: NURSING VERBAL MED ORDER ONE (22:45)
[2017-11-20] MEDS: GABAPENTIN 600 MG TAB PO SCH (23:54)
[2017-11-20] MEDS: METHADONE HCL 10 MG TAB PO SCH (23:55)
[2017-11-21] VITALS (14 sets, daily range): BP systolic 97–115; BP diastolic 62–73; PULSE 83–112; TEMP 36.6–38.5; O2SAT 93–100; Ht 185.4 cm; Wt 95.2 kg
[2017-11-21] MEDS: ACETAMINOPHEN 325 MG TAB PO PRN (00:03)
[2017-11-21] MEDS: SODIUM CHLORIDE 0.9% 1000ML 1,000 ML IV SCH ×2 (03:27→12:35)
[2017-11-21 05:36] LABS: ALBUMIN 2.1 gm/dl (3.4-5.0); CALCIUM 9.2 mg/dl (8.5-10.1); CREATININE 1.86 mg/dl (0.60-1.40); PHOSPHORUS 2.1 mg/dl (2.5-4.9); POTASSIUM 3.7 mmol/L (3.5-5.1); TOTAL PROTEIN 5.4 gm/dl (6.4-8.2)
[2017-11-21] MEDS: CEFEPIME IV 2,000 MG in SYRINGE 7.5 ML IV SCH (05:57)
[2017-11-21] MEDS ORDERED: VANCOMYCIN IV 1,500 MG in SODIUM CHLORIDE 0.9% 500ML 500 ML IV SCH (06:00)
[2017-11-21 06:08] LABS: HEMATOCRIT 23.5 % (42-52); HEMOGLOBIN 8.1 g/dL (14.0-18.0); MEAN CELL VOLUME 97.1 fL (80-100); MEAN CORPUSCULAR HEMOGLOBIN 33.5 pg (25-34); MEAN CORPUSCULAR HGB CONC 34.5 g/dl (32-36); MEAN PLATELET VOLUME 9.2 fL (7.4-10.4); PLATELET COUNT 18 K/uL (130-400); WHITE BLOOD COUNT 0.24 K/uL (4.8-10.8)
--- NOTE | 2017-11-21 07:45 | Pharmacy Progress Note ---
Pharmacy Abx Initial Consult Date of Service Nov 21, 2017. Pharmacy Dosing Scope Date of Consult: 11/20/17 Consultation requested by: Kathie Patel PA-C Pharmacy is consulted to initiate vancomycin and cefepime IV dosing therapy, order appropriate labs and adjust drug dose/frequency. Objective Height (Feet): 6 Height (Inches): 1.00 Weight (Kilograms): 95.200 Vital Signs (Past 12Hrs) Vital Signs Past 12 Hours Date Time Temp Pulse Resp B/P (MAP) Pulse Ox O2 Delivery O2 Flow Rate FiO2 11/21/17 07:09 37.2 93 18 110/63 (79) 93 11/21/17 02:45 37.2 112 18 97/62 95 11/21/17 01:45 38.0 94 18 115/69 99 11/21/17 01:15 38.5 95 18 109/70 99 11/21/17 00:45 37.8 102 18 109/69 98 11/21/17 00:30 37.5 95 18 104/68 100 11/21/17 00:12 37.2 89 18 112/70 100 11/21/17 00:00 Room Air 11/20/17 23:45 37.1 90 18 118/76 100 11/20/17 23:15 37.5 76 18 117/73 100 11/20/17 23:00 37.2 77 18 112/70 100 11/20/17 22:47 37.1 82 18 108/66 11/20/17 22:45 37.1 79 18 108/66 100 11/20/17 22:30 37.3 85 19 96/58 (71) 97 Room Air 11/20/17 21:55 37.0 90 104/66 97 11/20/17 20:55 37.6 91 110/70 97 11/20/17 20:25 37.4 104 110/66 91 11/20/17 19:55 38.1 97 101/66 97 Lab Results (24Hrs) Laboratory Tests (24 Hours) Test 11/20/17 09:55 11/21/17 04:43 Lactic Acid Level 1.5 mmol/L (0.4-2.0) White Blood Count 0.24 K/uL (4.8-10.8) *L Micro Results Date/Time Source Procedure Growth Status 8/1/18 10:35 Blood Blood Culture Pending Received 11/20/17 09:55 Blood Blood Culture Pending Received 11/20/17 11:35 Urine , Clean Catch Urine Culture Pending Received Risk Factors for Resistance * Hospitalization for 48 hours or more within the past 90 days * Immunocompromised (chemotherapy) * Antimicrobial use within the last 90 days; vanco IV, cefepime, metronidazole * patient on chronic suppressive therapy with bactrim 3x/week, fluconazole, and acyclovir Assessment & Plan Assessment 32 year old male with a history of metastatic B cell lymphoma and pancytopenia admitted for pancytopenia and fevers at home. Empiric broad spectrum antibiotic therapy has been initiated for possible febrile neutropenia, possible pneumonia (imaging revealed small pleural effusion, new nodules in right upper and right lower lobe consistent with metastatic disease). * Patient was recently admitted 11/16-11/18 for neutropenic fever. He received empiric antibiotic therapy with vancomycin, cefepime, and metronidazole. It was suspected that fever was due to lymphoma (no s/s of infection), therefore antibiotics were discontinued after ~48 hours * h/o CKD III with baseline Scr ~1.8 mg/dL Plan Vancomycin IV * Loading dose: 2000 mg (given in ED) * Maintenance dose: 1500 mg IV (15.8 mg/kg) every 18 hours * Dosing interval of q18h selected based on previous vancomycin dosing data for this patient. * Goal trough level for unknown source : 15 to 20 mcg/mL * Trough level ordered for 11/22/17 * MRSA nasal swab ordered to help r/o MRSA pneumonia Cefepime IV * increase to 2000 mg IV q8h since renal function has improved to > 60 ml/min Pharmacy will continue to follow and will adjust dose/frequency as necessary. Thank you.
[2017-11-21 07:53] LABS: HEMATOCRIT 24.7 % (42-52); HEMOGLOBIN 8.5 g/dL (14.0-18.0)
[2017-11-21] MEDS ORDERED: FLUCONAZOLE 100 MG TAB PO SCH (08:00)
[2017-11-21] MEDS ORDERED: ESCITALOPRAM OXALATE 20 MG TAB PO SCH (08:00)
[2017-11-21] MEDS ORDERED: DEXLANSOPRAZOLE 60 MG CAPDR PO SCH (08:00)
[2017-11-21] MEDS: GABAPENTIN 600 MG TAB PO SCH ×2 (08:42→16:25)
[2017-11-21] MEDS: LIDODERM (LIDOCAINE) PATCH 5% TD SCH (08:43)
[2017-11-21] MEDS ORDERED: POTASSIUM PHOS 3 MMOL/1 ML INFUSION IV ONE (08:45)
[2017-11-21] MEDS: METHADONE HCL 10 MG TAB PO SCH ×2 (08:46→16:25)
[2017-11-21] MEDS: ACYCLOVIR 400 MG TAB PO SCH (08:46)
--- NOTE | 2017-11-21 08:51 | Oncology Consultation ---
Oncology/Heme Consultation Date of Consultation: Nov 20, 2017. Attending Physician: Malik Gold MD, PhD Reason for Consultation: Febrile neutropenia History of Present Illness Mr. Reyes is a 32 year old man with multiply relapsed large B cell lymphoma. He started palliative chemotherapy with gemcitabine and oxaliplatin about 2 weeks ago. He was having intermittent fevers prior to chemo and these have persisted since. He has had multiple infectious workups in that time and all cultures have been negative. He presented yesterday morning with a temp of 103 at home. He complains of mucositis and dry mouth. He denies any cough, shortness of breath, dysuria, hematuria, or diarrhea. He looks more ill today than he generally has in the past. Past Medical/Surgical History Medical Problems: (1) Acute kidney injury Status: Acute (2) Febrile neutropenia Status: Acute (3) Febrile neutropenia Status: Acute (4) Fever Status: Acute (5) Fever Status: Acute (6) Influenza Status: Acute (7) Influenza Status: Acute (8) Neutropenia Status: Acute (9) Pancytopenia Status: Acute (10) Pancytopenia Status: Acute (11) Pneumonia Status: Acute (12) Sepsis Status: Acute Family History Cancer (lymphoma) Heart disease Myocardial infarction Social History Smoking Status: Never Smoker Smokeless Tobacco Use: No Alcohol Use: occasionally Drug Use: none Marital Status: Housing Status: lives with significant other Occupation Status: employed Allergies Coded Allergies: Erythromycin (Verified Adverse Reaction, Intermediate, GI SYMPTOMS, 06/25/17 ) Prochlorperazine (Verified Adverse Reaction, Unknown, change in mental status, 06/25/17) Home Medications Scheduled Acyclovir (Zovirax), 800 MG PO BID Cetirizine Hcl (Cetirizine Hcl), 10 MG PO DAILY Dexlansoprazole (Dexilant), 60 MG PO QAM Docusate Sodium (Docusate Sodium), 100 MG PO QAM Docusate Sodium (Docusate Sodium), 200 MG PO HS Escitalopram Oxalate (Lexapro), 20 MG PO QAM Fluconazole (Diflucan), 400 MG PO QAM Gabapentin (Gabapentin), 600 MG PO TID Methadone Hcl (Dolophine), 20 MG PO Q8 Sennosides (Senna-Lax), 2 TABS PO AMHS Sulfa/Trimethoprim (Bactrim Ds 800MG/160MG), 1 TAB PO [id number] Scheduled PRN Bisacodyl (Bisacodyl), 2 TAB PO HS PRN for Constipation Dexlansoprazole (Dexilant), 30 MG PO HS PRN for gerd Dronabinol (Marinol), 5 MG PO TIDM PRN for IMPROVED APPETITE Lorazepam (Ativan), 1 MG PO HS PRN for Anxiety Ondansetron Hcl (Zofran), 8 MG PO Q8 PRN for Nausea Oxycodone Immediate Rel Tab (Roxicodone Ir), 10-15 MG PO Q4 PRN for Pain Current Inpatient Medications Current Inpatient Medications Medications (Trade) Dose Ordered Sig/Sidney Route Start Time Stop Time Status Last Admin Dose Admin Acetaminophen (Tylenol Tab) 650 mg Q4H PRN PO 11/20/17 13:45 12/20/17 13:44 11/21/17 00:03 650 MG Al Hydrox/Mg Hydrox/Simethicone (Maalox Max Susp) 15 ml Q4H PRN PO 11/20/17 13:45 12/20/17 13:44 Magnesium Hydroxide (Milk Of Magnesia Susp) 30 ml Q6H PRN PO 11/20/17 13:45 12/20/17 13:44 Polyethylene (Miralax Powder Packet) 17 gm DAILY PRN PO 11/20/17 13:45 12/20/17 13:44 Acyclovir (Zovirax Tab) 800 mg BID PO 11/20/17 20:00 12/20/17 20:59 11/20/17 20:42 800 MG Dronabinol (Marinol Cap) 5 mg TIDM PRN PO 11/20/17 13:45 12/20/17 13:44 Escitalopram Oxalate (Lexapro Tab) 20 mg QAM PO 11/21/17 08:00 12/21/17 08:59 Fluconazole (Diflucan Tab) 400 mg QAM PO 11/21/17 08:00 12/21/17 08:59 Lorazepam (Ativan Tab) 1 mg HS PRN PO 11/20/17 13:45 12/20/17 13:44 Oxycodone HCl (Roxicodone Immediate Rel Tab) 10 mg Q4 PRN PO 11/20/17 13:45 12/04/17 13:44 Vancomycin HCl (Consult) 1 ea UD PRN N/A 11/20/17 13:45 12/20/17 13:44 Lidocaine (Lidoderm Patch 5%) 1 patch QAM TD 11/20/17 16:00 12/20/17 15:59 11/20/17 16:00 1 PATCH Miscellaneous (Remove Lidoderm Patch) 1 ea DAILY@21 N/A 11/20/17 21:00 12/20/17 20:59 11/20/17 20:43 1 EA Vancomycin HCl 1500 mg/Sodium Chloride 530 ml @ 200 mls/hr Q18H IV 11/21/17 06:00 11/23/17 05:59 11/21/17 05:57 200 MLS/HR Cefepime HCl 2000 mg/Syringe 20 ml @ 5 mls/min Q12H IV 11/20/17 18:00 11/22/17 17:59 11/21/17 05:57 5 MLS/MIN Cefepime HCl (Consult) 1 ea UD PRN N/A 11/20/17 16:45 12/20/17 16:44 Gabapentin (Neurontin Tab) 600 mg DAILY@0000,0800,1600 PO 11/21/17 00:00 12/20/17 19:59 11/20/17 23:54 600 MG Methadone HCl (Dolophine Tab) 20 mg DAILY@0000,0800,1600 PO 11/21/17 00:00 12/04/17 19:59 11/20/17 23:55 20 MG Ondansetron HCl (Zofran Tab) 8 mg Q8@0000,0800,1600 PRN PO 11/20/17 17:15 12/20/17 17:14 11/20/17 17:09 8 MG Lidocaine HCl/ Diphenhydramine HCl/Al Hydroxide/ Mg Hydroxide/ Glycerin/Barcode Q6H PRN MT 11/20/17 17:30 12/20/17 17:29 11/20/17 17:50 5 ML Dexlansoprazole (Dexilant Dr) 60 mg DAILY PO 11/21/17 08:00 12/21/17 07:59 Heparin Sodium (Porcine) (Heparin 100 Unit/ml 5ml Flush) 5 ml PRN PRN IV 11/20/17 23:15 12/20/17 23:14 Sodium Chloride 1,000 ml @ 75 mls/hr [id number] IV 11/20/17 23:15 12/20/17 23:14 11/21/17 03:27 75 MLS/HR Review of Systems Constitutional: + fever, + weakness (generalized), + fatigue ENT: + problem reported (mouth sores) Respiratory: No cough, No shortness of breath Cardiovascular: No chest pain Abdomen: No pain, No nausea, No diarrhea Musculoskeletal: No joint pain, No muscle pain Genitourinary - Male: No hematuria Hematologic / Lymphatic: No abnormal bleeding/bruising Physical Exam Date Time Temp Pulse Resp B/P (MAP) Pulse Ox O2 Delivery O2 Flow Rate FiO2 11/21/17 07:09 37.2 93 18 110/63 (79) 93 11/21/17 02:45 37.2 112 18 97/62 95 11/21/17 01:45 38.0 94 18 115/69 99 11/21/17 01:15 38.5 95 18 109/70 99 11/21/17 00:45 37.8 102 18 109/69 98 11/21/17 00:30 37.5 95 18 104/68 100 11/21/17 00:12 37.2 89 18 112/70 100 11/21/17 00:00 Room Air 11/20/17 23:45 37.1 90 18 118/76 100 11/20/17 23:15 37.5 76 18 117/73 100 11/20/17 23:00 37.2 77 18 112/70 100 11/20/17 22:47 37.1 82 18 108/66 11/20/17 22:45 37.1 79 18 108/66 100 11/20/17 22:30 37.3 85 19 96/58 (71) 97 Room Air 11/20/17 21:55 37.0 90 104/66 97 11/20/17 20:55 37.6 91 110/70 97 11/20/17 20:25 37.4 104 110/66 91 11/20/17 19:55 38.1 97 101/66 97 11/20/17 19:40 38.1 97 104/66 97 11/20/17 19:25 38.2 103 102/68 98 11/20/17 19:03 38.2 102 20 102/68 98 11/20/17 16:00 100 Room Air 11/20/17 15:35 37.2 97 16 117/73 (88) 100 Room Air 11/20/17 14:38 37.3 81 14 103/62 100 11/20/17 14:21 81 14 103/62 100 Room Air 11/20/17 12:56 100 Room Air 11/20/17 12:12 80 21 100 11/20/17 11:12 88 24 98 11/20/17 11:11 88 26 105/70 97 Room Air 11/20/17 11:10 105/70 11/20/17 10:42 96 19 11/20/17 10:17 107/56 11/20/17 10:16 99 18 107/56 98 Room Air 11/20/17 10:14 98 11/20/17 10:08 37.3 11/20/17 09:14 37.5 133 18 80/57 97 Room Air General Appearance: WD/WN, no apparent distress, + pertinent finding (ill- appearing) ENT: + pertinent finding (mucositis with cracking of his lips, no thrush) Respiratory/Chest: lungs clear Cardiovascular: regular rate, rhythm Abdomen/GI: non tender, soft Extremities/Musculoskelatal: no pedal edema Neurologic/Psych: alert, oriented x 3 Skin: no rash Laboratory Results Last 24 Hours Test 11/20/17 09:55 11/20/17 11:11 11/20/17 11:13 11/20/17 11:35 Prothrombin Time 11.1 SECONDS Prothromb Time International Ratio 1.1 Sodium Level 129 mmol/L Potassium Level 3.9 mmol/L Chloride Level 97 mmol/L Carbon Dioxide Level 23 mmol/L Anion Gap 9.0 mmol/L Blood Urea Nitrogen 33 mg/dl Creatinine 2.03 mg/dl Est Creatinine Clear Calc Drug Dose 57.9 ml/min Estimated GFR () 48.1 Estimated GFR (Non- 41.5 BUN/Creatinine Ratio 16.4 Random Glucose 91 mg/dl Lactic Acid Level 1.5 mmol/L Calcium Level 9.3 mg/dl Phosphorus Level 1.8 mg/dl Magnesium Level 1.4 mg/dl Total Bilirubin 0.9 mg/dl Direct Bilirubin 0.5 mg/dl Aspartate Amino Transf (AST/SGOT) 665 U/L Alanine Aminotransferase (ALT/SGPT) 571 U/L Alkaline Phosphatase 395 U/L Troponin I < 0.015 ng/ml Pro-B-Type Natriuretic Peptide 301 pg/ml Total Protein 5.7 gm/dl Albumin 2.4 gm/dl Lipase 114 U/L Osmolality 276 mOsm/kg White Blood Count 0.37 K/uL Red Blood Count 1.96 M/uL Hemoglobin 7.0 g/dL Hematocrit 20.5 % Mean Corpuscular Volume 104.6 fL Mean Corpuscular Hemoglobin 35.7 pg Mean Corpuscular Hemoglobin Concent 34.1 g/dl RDW Standard Deviation 68.0 fL RDW Coefficient of Variation 17.7 % Platelet Count 12 K/uL Mean Platelet Volume 8.6 fL Peripheral Blood Smear Path Consult Urine Color YELLOW Urine Appearance CLEAR Urine pH 6.0 Urine Specific Harrod 1.014 Urine Protein 1+ Urine Glucose (UA) NEG Urine Ketones NEG Urine Occult Blood TRACE Urine Nitrite NEG Urine Bilirubin NEG Urine Urobilinogen NEG Urine Leukocyte Esterase NEG Urine WBC (Auto) 1-5 /hpf Urine RBC (Auto) 0-4 /hpf Urine Hyaline Casts (Auto) 1-5 /lpf Urine Epithelial Cells (Auto) 10-20 /lpf Urine Bacteria (Auto) NEG Urine Crystals AMORPHOUS SEDIMENT Urine Pathogenic Casts 5-10 GRANULAR CASTS /lpf Urine Yeast (Auto) Urine Osmolality 372 mOms/kg Test 11/21/17 04:43 11/21/17 07:40 White Blood Count 0.24 K/uL Red Blood Count 2.42 M/uL Hemoglobin 8.1 g/dL 8.5 g/dL Hematocrit 23.5 % 24.7 % Mean Corpuscular Volume 97.1 fL Mean Corpuscular Hemoglobin 33.5 pg Mean Corpuscular Hemoglobin Concent 34.5 g/dl Platelet Count 18 K/uL Mean Platelet Volume 9.2 fL Sodium Level 133 mmol/L Potassium Level 3.7 mmol/L Chloride Level 103 mmol/L Carbon Dioxide Level 22 mmol/L Anion Gap 8.0 mmol/L Blood Urea Nitrogen 26 mg/dl Creatinine 1.86 mg/dl Est Creatinine Clear Calc Drug Dose 63.2 ml/min Estimated GFR () 53.5 Estimated GFR (Non- 46.2 BUN/Creatinine Ratio 14.1 Random Glucose 84 mg/dl Calcium Level 9.2 mg/dl Phosphorus Level 2.1 mg/dl Magnesium Level 1.8 mg/dl Total Bilirubin 1.3 mg/dl Direct Bilirubin 0.8 mg/dl Aspartate Amino Transf (AST/SGOT) 387 U/L Alanine Aminotransferase (ALT/SGPT) 395 U/L Alkaline Phosphatase 366 U/L Total Protein 5.4 gm/dl Albumin 2.1 gm/dl Assessment & Plan Mr. Reyes looks ill today. His counts are down, which is likely a reflection of his poor marrow reserve after so many lines of chemotherapy. He is due to be transfused PRBCs and should also receive platelets for a count <15K. We can follow up cultures, but I suspect this is more likely tumor fever, given that these fevers have been ongoing for some time and he has no localizing signs or symptoms. We can continue with supportive care for now and will need to discuss plans for further treatment as an outpatient.
[2017-11-21] MEDS ORDERED: POTASSIUM PHOSPHATE INJ 9 MMOL in SODIUM CHLORIDE 0.9% 250ML 250 ML IV SCH (09:30)
[2017-11-21] MEDS: ONDANSETRON 8 MG TAB PO SCH ×2 (10:15→16:26)
[2017-11-21] MEDS ORDERED: MAGIC SWIZZLE PO PRN (12:00)
[2017-11-21] MEDS ORDERED: FILGRASTIM 480 MCG/1.6 ML VIAL SC STA (12:38)
[2017-11-21] MEDS ORDERED: LIDOCAINE HCL 2% VISCOUS SOLN 60 ML, DiphenhydrAMINE HCL SYRUP 150 MG, ALUMINUM/MAGNESI... MT PRN ×4 (12:45)
[2017-11-21] MEDS ORDERED: CEFEPIME IV 2,000 MG in SYRINGE 7.5 ML IV SCH (14:00)
--- NOTE | 2017-11-21 14:17 | Hospitalist Progress Note ---
Hospitalist Progress Note Date of Service Nov 21, 2017. Subjective Pt evaluation today including: conversation w/ patient, conversation w/ family ( and father at bedside), physical exam, chart review, lab review, conversation w/ student union consultant (spoke with Dr. Carbone, palliative care), review of inpatient medication list Pain: 2/10 right lower chest pain PO Intake: Tolerating PO diet Voiding: no voiding problems Patient reports feeling better compared to yesterday. He states he is less lethargic and weak. He still complains of a 2/10 aching pain in his right lower chest but states this is more intermittent now. The pain is worse with deep breaths and certain positions. The patient denies fevers, chills, sweats, chest pain, palpitations, claudication, cough, wheezing, shortness of breath, nausea, vomiting, abdominal pain, dysuria, hematuria, urinary retention, paralysis, weakness, numbness and tingling. Did have long discussion with patient and family regarding next steps as an outpatient, future hospice, and end of life issues; palliative care and oncology also addressed these issues. Additional Comments: See HPI for pertinent positives and negatives. All other systems reviewed and negative. Objective Vital Signs Date Time Temp Pulse Resp B/P (MAP) Pulse Ox O2 Delivery O2 Flow Rate FiO2 11/21/17 08:00 93 Room Air 11/21/17 07:09 37.2 93 18 110/63 (79) 93 11/21/17 02:45 37.2 112 18 97/62 95 11/21/17 01:45 38.0 94 18 115/69 99 11/21/17 01:15 38.5 95 18 109/70 99 11/21/17 00:45 37.8 102 18 109/69 98 11/21/17 00:30 37.5 95 18 104/68 100 11/21/17 00:12 37.2 89 18 112/70 100 11/21/17 00:00 Room Air 11/20/17 23:45 37.1 90 18 118/76 100 11/20/17 23:15 37.5 76 18 117/73 100 11/20/17 23:00 37.2 77 18 112/70 100 11/20/17 22:47 37.1 82 18 108/66 11/20/17 22:45 37.1 79 18 108/66 100 11/20/17 22:30 37.3 85 19 96/58 (71) 97 Room Air 11/20/17 21:55 37.0 90 104/66 97 11/20/17 20:55 37.6 91 110/70 97 11/20/17 20:25 37.4 104 110/66 91 11/20/17 19:55 38.1 97 101/66 97 11/20/17 19:40 38.1 97 104/66 97 11/20/17 19:25 38.2 103 102/68 98 11/20/17 19:03 38.2 102 20 102/68 98 11/20/17 16:00 100 Room Air 11/20/17 15:35 37.2 97 16 117/73 (88) 100 Room Air 11/20/17 14:38 37.3 81 14 103/62 100 11/20/17 14:21 81 14 103/62 100 Room Air Physical Exam Notes: General appearance: +Appears chronically ill. Well-developed, well-nourished, no apparent distress Head: Normocephalic, atraumatic Eyes: Normal inspection, PERRL, EOMI ENT: +Dry oral mucosa. Oral candidiasis. Normal ENT inspection, hearing grossly normal, pharynx normal Neck: Supple, no JVD, trachea midline Respiratory/Chest: +Port right chest. Lungs clear to auscultation, normal breath sounds, no respiratory distress Cardiovascular: Regular rate & rhythm, no gallop, no murmur Abdomen/GI: Normal bowel sounds, non-tender, soft Extremities/Musculoskeletal: Normal inspection, no calf tenderness, no pedal edema Neurological/Psych: Alert, normal mood/affect, oriented x 3 Skin: Normal color, warm/dry, no rash Laboratory Results Last 24 Hours Test 11/21/17 04:43 11/21/17 07:40 11/21/17 14:00 White Blood Count 0.24 K/uL Red Blood Count 2.42 M/uL Hemoglobin 8.1 g/dL 8.5 g/dL Hematocrit 23.5 % 24.7 % Mean Corpuscular Volume 97.1 fL Mean Corpuscular Hemoglobin 33.5 pg Mean Corpuscular Hemoglobin Concent 34.5 g/dl Platelet Count 18 K/uL Mean Platelet Volume 9.2 fL Sodium Level 133 mmol/L Potassium Level 3.7 mmol/L Chloride Level 103 mmol/L Carbon Dioxide Level 22 mmol/L Anion Gap 8.0 mmol/L Blood Urea Nitrogen 26 mg/dl Creatinine 1.86 mg/dl Est Creatinine Clear Calc Drug Dose 63.2 ml/min Estimated GFR () 53.5 Estimated GFR (Non- 46.2 BUN/Creatinine Ratio 14.1 Random Glucose 84 mg/dl Calcium Level 9.2 mg/dl Phosphorus Level 2.1 mg/dl Magnesium Level 1.8 mg/dl Total Bilirubin 1.3 mg/dl Direct Bilirubin 0.8 mg/dl Aspartate Amino Transf (AST/SGOT) 387 U/L Alanine Aminotransferase (ALT/SGPT) 395 U/L Alkaline Phosphatase 366 U/L Total Protein 5.4 gm/dl Albumin 2.1 gm/dl Assessment and Plan 32 y/o male with a history of metastatic B cell lymphoma, pancytopenia, neuropathic pain, anxiety/depression, CKD stage III, and GERD who presented to the ED on 11/20 with pancytopenia and fevers at home. Pt afebrile in ER, VSS. CXR shows trace left pleural effusions and patchy airspace opacities in left lower lobe, and 6 cm retrocardiac lobulated mass like density again noted. CT of chest, abdomen and pelvis shows 6 cm LLL mass lesion similar to 11/16/17 study , new subcentimeter nodules in RUL and RLL c/w mets, pathologically enlarged lymph nodes at esophageal hiatus and left cardiophrenic region similar to 11/16, marked hepatomegaly likely d/t lymphomatous involvement, soft tissue implants in left abdominal wall, and destructive lesions at T12 similar to previous. Pancytopenia worse compared to 11/18. Pancytopenia, possible neutropenic fever vs tumor fever, symptomatic anemia-- ongoing -Admit to med/surg as hemodynamically stable, no signs of bleeding -Hgb 8.5 on 11/21, up from 7.0. S/p 2 units PRBC -PLT 18 on 11/21, up from 12. S/p 1 unit PLT. Will order second unit PLT -Consult heme/onc. Pt follows w/Dr. Sosa ([phone]) at [facility] and Dr. Kris Bradford locally. Spoke with adiel Rey to give Neupogen daily here. Will institute outpatient neutropenic fever protocol w/close outpatient follow up. Will provide outpatient abx as pt concerned about this. Ok to give more platelets. -Neupogen 480 mcg SC qd -Neutropenic precautions -Febrile again overnight, Tmax 38.5 Fevers, possible PNA--possible PNA on CXR but no consolidations seen on chest CT -Continue Cefepime and vancomycin for now pending blood cultures -NSS at 75 cc/hr -Lactic acid WNL Transaminitis--improving -AST, ALT, alk phos trending down 11/21 -Tbili elevated at 1.3 -INR WNL -Continue to monitor Acute kidney injury on CKD stage III--resolving -Creatinine 1.86 on 11/21, down from 2.03 -Baseline creatinine 1.6-1.8 Hypomagnesemia, hypophosphatemia--improving -Magnesium 1.8 on 11/21, up from 1.4 -Phosphorus 2.1 on 11/21, up from 1.8 -K phos 9 mmol x 1 Diffuse B cell lymphoma--mets to lung, liver -Heme/onc as above -Pt just started new chemo regimen 11/15, scheduled for [id number] -Continue acyclovir, fluconazole, and Bactrim for chronic suppression -Pt requested palliative care consult -Spoke with Nuha from palliative. Pt would like home hospice and when the end is near, be admitted for inpatient hospice to pass peacefully out of view of his young son. Will complete POLST when is present. Pt wants to be DNR but will talk with first. Recommend nystatin for thrush. Pt would like to continue abx although he knows the fevers are unlikely to be due to infection. Oral ulcers secondary to chemo, oral candidiasis -Increase Magic Swizzle to q4h prn -Nystatin 5 ml PO QID Neuropathic pain -Continue gabapentin 600 mg PO q8h, methadone 20 mg PO q8h, oxycodone 10 mg PO q4h prn pain Anxiety, depression -Continue Lexapro 20 mg PO qd and Ativan 1 mg PO hs prn GERD -Pt may continue Dexilant brought from home DVT prophylaxis -No chemical ppx due to severe anemia and thrombocytopenia -GILBERTO cuellar and SCDs Code Status -Level I, FULL RESUSCITATION STATUS for now, pt considering DNR status Total time spent in direct patient care 75 minutes
[2017-11-21 14:28] LABS: HEMATOCRIT 25.2 % (42-52); HEMOGLOBIN 8.8 g/dL (14.0-18.0)
--- NOTE | 2017-11-21 15:06 | Palliative Care Consultation ---
Consultation Date of Consultation: Nov 21, 2017. Requesting Physician: Maura Patel PA-C Attending Physician: Maura Patel PA-C Reason for Consultation: Goals of care History of Present Illness This 32 year old male patient with diffuse B-cell lymphoma, pancytopenia, neuropathic pain, anxiety/depression, CKD stage III, and others listed below, presented to the hospital yesterday with fevers and pancytopenia. Patient has had ongoing issues with neutropenic fevers, last admitted 11/16-11/18. Heme/onc believes fevers may be tumor-related rather than infectious. Nonetheless, patient is on broad-spectrum abx and blood cultures were drawn, still pending. Hgb was 7, plt 12-- patient received unit of platelets and 2 units of blood. Hgb today is 8.5, plt 18. He started palliative chemotherapy with gemcitabine and oxaliplatin that he receives every two weeks. Patient has been increasingly weak, generally ill and now with these recurrent fevers. Palliative care is consulted to discuss goals of care as patient was reportedly stating to hospitalist that he wants to go home and just be comfortable. I met with the patient in room 409. He is awake, sitting in chair and oriented x4. Patient appears somewhat drowsy from pain meds, but is still oriented and knowledgeable about his condition. Patient stated, "I know there's no hope. I just want to go home for as long as I'm functional." He had already spoken to the spring encaser and received a list of hospice agencies. I discussed with patient exactly what hospice does and their philosophy of care primarily focusing on comfort and no life-prolonging treatment. Patient verbalized understanding and stated that he would like to have at least one more platelet transfusion while in hospital. He is also concerned about his sore mouth. Patient also stated, "I want to be at home as long as possible, but I don't want to at home. I have a three year old son and we don't want to put him through that." Patient would like to speak with his prior to us making any hospice referrals. Past Medical/Surgical History Medical History: (1) Acute kidney injury (2) Anemia (3) Febrile neutropenia (4) Febrile neutropenia (5) Fever (6) Fever (7) GERD (gastroesophageal reflux disease) (8) Hypotension (9) Influenza (10) Influenza (11) Left-sided back pain (12) Lymphoma (13) Neutropenia (14) Neutropenic fever (15) Neutropenic fever (16) Pancytopenia (17) Pancytopenia (18) Pancytopenia (19) Pneumonia (20) Recurrent lymphoma (21) Sore throat Surgical Problems: (1) History of liver biopsy Social History Smoking Status: Never Smoker History of Alcohol Use: No Drug Use: none Marital Status: Housing Status: lives with family Occupation Status: employed Review of Systems Constitutional: + weakness ENT: + see HPI, No trouble swallowing Respiratory: No shortness of breath, No dyspnea on exertion Cardiac: + edema, No chest pain Abdomen: No pain, No nausea, No vomiting Male : No problem reported Psychiatric: No anxiety Allergies Coded Allergies: Erythromycin (Verified Adverse Reaction, Intermediate, GI SYMPTOMS, 06/25/17 ) Prochlorperazine (Verified Adverse Reaction, Unknown, change in mental status, 06/25/17) Medications Current Inpatient Medications Medications (Trade) Dose Ordered Sig/Sidney Route Start Time Stop Time Status Last Admin Dose Admin Acetaminophen (Tylenol Tab) 650 mg Q4H PRN PO 11/20/17 13:45 12/20/17 13:44 11/21/17 00:03 650 MG Al Hydrox/Mg Hydrox/Simethicone (Maalox Max Susp) 15 ml Q4H PRN PO 11/20/17 13:45 12/20/17 13:44 Magnesium Hydroxide (Milk Of Magnesia Susp) 30 ml Q6H PRN PO 11/20/17 13:45 12/20/17 13:44 Polyethylene (Miralax Powder Packet) 17 gm DAILY PRN PO 11/20/17 13:45 12/20/17 13:44 Acyclovir (Zovirax Tab) 800 mg BID PO 11/20/17 20:00 12/20/17 20:59 11/21/17 08:46 800 MG Dronabinol (Marinol Cap) 5 mg TIDM PRN PO 11/20/17 13:45 12/20/17 13:44 Escitalopram Oxalate (Lexapro Tab) 20 mg QAM PO 11/21/17 08:00 12/21/17 08:59 11/21/17 08:47 20 MG Fluconazole (Diflucan Tab) 400 mg QAM PO 11/21/17 08:00 9/1/18 08:59 11/21/17 08:46 400 MG Lorazepam (Ativan Tab) 1 mg HS PRN PO 11/20/17 13:45 12/20/17 13:44 Oxycodone HCl (Roxicodone Immediate Rel Tab) 10 mg Q4 PRN PO 11/20/17 13:45 12/04/17 13:44 Vancomycin HCl (Consult) 1 ea UD PRN N/A 11/20/17 13:45 12/20/17 13:44 Lidocaine (Lidoderm Patch 5%) 1 patch QAM TD 11/20/17 16:00 12/20/17 15:59 11/21/17 08:43 1 PATCH Miscellaneous (Remove Lidoderm Patch) 1 ea DAILY@21 N/A 11/20/17 21:00 12/20/17 20:59 11/20/17 20:43 1 EA Vancomycin HCl 1500 mg/Sodium Chloride 530 ml @ 200 mls/hr Q18H IV 11/21/17 06:00 11/23/17 05:59 11/21/17 05:57 200 MLS/HR Cefepime HCl (Consult) 1 ea UD PRN N/A 11/20/17 16:45 12/20/17 16:44 Gabapentin (Neurontin Tab) 600 mg DAILY@0000,0800,1600 PO 11/21/17 00:00 12/20/17 19:59 11/21/17 08:42 600 MG Methadone HCl (Dolophine Tab) 20 mg DAILY@0000,0800,1600 PO 11/21/17 00:00 12/04/17 19:59 11/21/17 08:46 20 MG Dexlansoprazole (Dexilant Dr) 60 mg DAILY PO 11/21/17 08:00 12/21/17 07:59 11/21/17 08:43 60 MG Heparin Sodium (Porcine) (Heparin 100 Unit/ml 5ml Flush) 5 ml PRN PRN IV 11/20/17 23:15 12/20/17 23:14 Sodium Chloride 1,000 ml @ 75 mls/hr [id number] IV 11/20/17 23:15 12/20/17 23:14 11/21/17 03:27 75 MLS/HR Ondansetron HCl (Zofran Tab) 8 mg Q8@0000,0800,1600 PO 11/21/17 09:30 12/20/17 09:29 11/21/17 10:15 8 MG Cefepime HCl 2000 mg/Syringe 20 ml @ 5 mls/min Q8H IV 11/21/17 14:00 11/22/17 17:59 11/21/17 13:09 5 MLS/MIN Filgrastim (Neupogen Sq) 480 mcg DAILY SC 11/22/17 08:00 12/22/17 07:59 Lidocaine HCl/ Diphenhydramine HCl/Al Hydroxide/ Mg Hydroxide/ Glycerin/Barcode Q4H PRN MT 11/21/17 12:45 12/21/17 12:44 11/21/17 13:09 5 ML Physical Exam Date Time Temp Pulse Resp B/P (MAP) Pulse Ox O2 Delivery O2 Flow Rate FiO2 11/21/17 08:00 93 Room Air 11/21/17 07:09 37.2 93 18 110/63 (79) 93 11/21/17 02:45 37.2 112 18 97/62 95 11/21/17 01:45 38.0 94 18 115/69 99 11/21/17 01:15 38.5 95 18 109/70 99 11/21/17 00:45 37.8 102 18 109/69 98 11/21/17 00:30 37.5 95 18 104/68 100 11/21/17 00:12 37.2 89 18 112/70 100 11/21/17 00:00 Room Air 11/20/17 23:45 37.1 90 18 118/76 100 11/20/17 23:15 37.5 76 18 117/73 100 11/20/17 23:00 37.2 77 18 112/70 100 11/20/17 22:47 37.1 82 18 108/66 11/20/17 22:45 37.1 79 18 108/66 100 11/20/17 22:30 37.3 85 19 96/58 (71) 97 Room Air 11/20/17 21:55 37.0 90 104/66 97 11/20/17 20:55 37.6 91 110/70 97 11/20/17 20:25 37.4 104 110/66 91 11/20/17 19:55 38.1 97 101/66 97 11/20/17 19:40 38.1 97 104/66 97 11/20/17 19:25 38.2 103 102/68 98 11/20/17 19:03 38.2 102 20 102/68 98 11/20/17 16:00 100 Room Air 11/20/17 15:35 37.2 97 16 117/73 (88) 100 Room Air 11/20/17 14:38 37.3 81 14 103/62 100 11/20/17 14:21 81 14 103/62 100 Room Air General Appearance: no apparent distress, + pertinent finding (quite ill- appearing) ENT: hearing grossly normal Neck: supple, no JVD Respiratory: no respiratory distress, no accessory muscle use, + pertinent finding (room air) Cardiovascular: regular rate, rhythm, + normal peripheral pulses (generalized mild edema) Abdomen: + pertinent finding (did nt ) Neurologic/Psychiatric: normal mood/affect, oriented x 3 Laboratory Results Last 24 Hours Test 11/21/17 04:43 11/21/17 07:40 White Blood Count 0.24 K/uL Red Blood Count 2.42 M/uL Hemoglobin 8.1 g/dL 8.5 g/dL Hematocrit 23.5 % 24.7 % Mean Corpuscular Volume 97.1 fL Mean Corpuscular Hemoglobin 33.5 pg Mean Corpuscular Hemoglobin Concent 34.5 g/dl Platelet Count 18 K/uL Mean Platelet Volume 9.2 fL Sodium Level 133 mmol/L Potassium Level 3.7 mmol/L Chloride Level 103 mmol/L Carbon Dioxide Level 22 mmol/L Anion Gap 8.0 mmol/L Blood Urea Nitrogen 26 mg/dl Creatinine 1.86 mg/dl Est Creatinine Clear Calc Drug Dose 63.2 ml/min Estimated GFR () 53.5 Estimated GFR (Non- 46.2 BUN/Creatinine Ratio 14.1 Random Glucose 84 mg/dl Calcium Level 9.2 mg/dl Phosphorus Level 2.1 mg/dl Magnesium Level 1.8 mg/dl Total Bilirubin 1.3 mg/dl Direct Bilirubin 0.8 mg/dl Aspartate Amino Transf (AST/SGOT) 387 U/L Alanine Aminotransferase (ALT/SGPT) 395 U/L Alkaline Phosphatase 366 U/L Total Protein 5.4 gm/dl Albumin 2.1 gm/dl Assessment & Plan Problem list: Mouth pain- thrush Neoplasm-related pain Neutropenic fever Diffuse B-cell lymphoma Goals of care Palliative care recs: -Spoke with patient regarding goals of care. He is interested in going home with hospice, wants to remain home for as long as possible, but does not want to at home. We discussed that as the "end" nears he could work with a hospice agency to be placed on GIP hospice at hospital or SNF. -Discussed CODE STATUS. Patient states he wants to talk with his first but is fairly certain he wants to be DNR. We discussed POLST form and will complete prior to discharge. -Order nystatin suspension for thrush- spoke with PA about this. -Patient is requesting to have another platelet transfusion prior to discharge. -Waiting for blood culture results. Patient states he would like to continue an oral abx at home, even though he is aware that fevers are likely tumor-related given his multiple workups showing non-infectious cause. -Patient has my cell number if he needs it. I will follow closely. Thank you kindly for this consult. Total time spent 70 minutes with >50% of time spent at bedside with patient discussing goals and hospice care as well as collaborating with case management and hospitalist to coordinate care.
[2017-11-21] MEDS ORDERED: NYSTATIN SUSP 500,000 U/5 ML UDC PO SCH (17:00)
[2017-11-21] MEDS ORDERED: LDDP5 TD (18:46)
[2017-11-21] MEDS ORDERED: NYSS5 PO (18:46)
[2017-11-21] MEDS ORDERED: MBXC PO (18:46)
--- NOTE | 2017-11-21 18:54 | Discharge Instructions ---
Discharge Instructions Date of Service Nov 21, 2017. Admission Reason for Admission: Neutropenic Fever Discharge Discharge Diagnosis / Problem: Fevers, lymphoma Discharge Goals Goal(s): Decrease discomfort, Diagnostic testing Activity Recommendations Activity Limitations: resume your previous activity . Instructions / Follow-Up Instructions / Follow-Up You were admitted to the hospital for pancytopenia (low blood counts) and fevers. Although these fevers are most likely due to your lymphoma and/or neutropenia, your frequent hospitalizations and immunosuppression do put you at increased risk of infection. At the recommendation of your primary oncologist, Dr. Sosa, you were admitted and given broad spectrum antibiotics. Your cultures so far have been negative. You have been evaluated by your local oncologist, Dr. Carbone, as well as palliative care in regards to plans for moving forward. You will be followed up very closely with Dr. Carbone to monitor your fevers and pancytopenia as an outpatient. Home health will come to your home to assist in the frequently needed blood draws. As you have received some blood and platelet transfusions, as well as Neupogen, and do not show any signs of infection, you are now medically stable for discharge. Medications: *Please take Nystatin 5 milliliters (one teaspoon) by mouth four times a day for 10 days for oral thrush. *You have been provided a script for Magic Swizzle to take as needed before meals and bedtime for mouth pain. The Nystatin should also help. *You may apply a lidoderm patch to your right lower chest for pain. Apply this and leave on for 12 hours, then remove and leave off for 12 hours. *Dr. Carbone will provide you prescriptions for antibiotics to take at home. *Continue your home medications as prescribed. Follow up: *Dr. Carbone will schedule very close follow up with him and his office to help decrease hospital admissions. Please seek medical attention if you experience fevers, chills, sweats, dizziness/lightheadedness, loss of consciousness, chest pain, shortness of breath, nausea, vomiting, numbness or tingling. Current Hospital Diet Patient's current hospital diet: Regular Diet Discharge Diet Recommended Diet: Regular Diet Diet Texture: Dental Soft (bite-sized) Pending Studies Studies pending at discharge: yes List of pending studies: Blood cultures Medical Emergencies . Who to Call and When: Medical Emergencies: If at any time you feel your situation is an emergency, please call 911 immediately. . Non-Emergent Contact Non-Emergency issues call your: Primary Care Provider, Oncologist Call Non-Emergent contact if: you have a fever, your pain is not controlled, your pain is worsening, your pain is unusual for you, your pain is concerning you, you have any medication questions . . "Provider Documentation" section prepared by Maura Patel. .
--- NOTE | 2017-11-21 19:20 | Discharge Summary ---
Discharge Summary Date of Service Nov 21, 2017. Discharge Summary Admission Date: Nov 20, 2017 at 13:51 Discharge Date: Nov 21, 2017 Discharge Disposition: Home with services Principal Diagnosis: Neutropenic fever, B cell lymphoma Problems/Secondary Diagnoses: Pancytopenia, hypomagnesemia, hypophosphatemia, ROLLY on CKD stage III, oral ulcers, oral candidiasis, neuropathic pain, anxiety/depression, GERD Immunizations: Have You Had Influenza Vaccine: No History of Tetanus Vaccine?: Unknown History of Pneumococcal: Unknown History of Hepatitis B Vaccine: Unknown Procedures: CT SCAN OF THE CHEST, ABDOMEN, AND PELVIS WITHOUT IV CONTRAST CLINICAL HISTORY: Fever and dyspnea. Lymphoma. COMPARISON STUDY: Chest CT scans dated 05/13/2017 and 12/15/2016. Abdominal CT dated 11/16/2017. TECHNIQUE: CT scan of the chest, abdomen, and pelvis was performed from the thoracic inlet to the proximal femora. Images are reviewed in the axial, sagittal, and coronal planes. IV contrast was not administered as per the referring clinician. Note that the examination was performed in significantly suboptimal fashion without oral and IV contrast.A dose lowering technique was utilized adhering to the principles of ALARA. CT DOSE: 1216.21 mGy.cm FINDINGS: CHEST: Thyroid: Imaged portions of the thyroid gland are normal in size and attenuation. Thoracic aorta: The thoracic aorta is normal in caliber and demonstrates standard 3-vessel arch anatomy. A right internal jugular central venous infusion port is in place. Heart: The heart is normal in size and without pericardial effusion. There is diminished attenuation of the cardiac blood pool as compared to the myocardium suggesting anemia. Lungs and pleural spaces: There is a 6.0 x 5.7 cm lobulated low-attenuation mass lesion in the left lower lobe seen on image #208. This has increased in size from 05/13/2017. A 2.4 cm focus of pleural-based nodularity is seen at the left lung base image #253. There is mild diffuse pleural thickening at the left lung base, with numerous additional smaller foci of pleural-based nodularity (images #184, #191, #210, and #217). There is a small left pleural effusion with associated atelectasis. No airspace consolidation is seen typical for pneumonia. Subpleural scarring is again seen in the left upper lobe. A 5 mm left upper lobe nodule is again seen on image #153. This has decreased in size from 05/13/2017. A 5 mm right lower lobe pulmonary nodule seen image #211 end a 3 mm right upper lobe pulmonary nodule seen on image #138 are new from 05/13/2017. The trachea and central airways are patent. Mediastinum: There is no mediastinal lymphadenopathy. Kirsten: Not well assessed without IV contrast. Axillae: There is no axillary lymphadenopathy. Bony thorax: No there is a mild compression deformity of T12 with a permeative mixed lytic and blastic lesion. This is seen on image #306. A sclerotic lesion is also seen in the left lateral seventh rib on image #173. Destructive versus postsurgical change is seen involving the left posterior lower ribs Soft tissues: Mild gynecomastia is noted. Scarring is a soft tissue lesion is again suggested in the left chest wall on image #174. ABDOMEN AND PELVIS: Liver: The unenhanced liver is markedly enlarged, measuring 28.0 cm and length. There is nodularity of the hepatic surface contour. Hepatic lesions seen by ultrasound are not well visualized by CT. There is no intrahepatic or ductal dilatation. Gallbladder: The gallbladder wall is markedly thickened and edematous. There is no surrounding stranding or convincing evidence of acute cholecystitis. Spleen: Normal in size and attenuation. Pancreas: The unenhanced pancreas is atrophic and grossly unremarkable. Adrenal glands: Unremarkable. Kidneys: The right kidney is markedly atrophic and hydronephrotic. There are numerous calcified lesions in the right kidney which are similar in appearance to previous. The unenhanced left kidney is normal in size And without hydronephrosis. Cortical scarring is seen in the lower pole of left kidney. No renal calculi are identified. There is no evidence of contour deforming mass lesion.. Abdominal vasculature: The abdominal aorta is normal in course and caliber. Bowel: There is moderate to severe constipation. No bowel obstruction is identified. The appendix is normal as imaged. Peritoneum: There is trace free fluid in the pelvis. No intraperitoneal free air is seen. Lymphadenopathy: A 1.5 x 1.0 cm left cardiophrenic node is seen on image #[address]. An enlarged node at the esophageal hiatus is seen on image #57 and measures 1.9 x 1.8 cm. These are similar to 11/16/2017 but new from 05/13/2017. Calcified left periaortic node on image #175 is unchanged from previous and measures 3.0 x 2.3 cm. This likely represents treated disease. There is no mesenteric, iliac chain, pelvic sidewall, or inguinal lymphadenopathy. Pelvic viscera: The bladder, prostate, and seminal vesicles are normal as visualized. Skeletal structures: No destructive lesions are seen involving the lumbosacral spine and bony pelvis. Soft tissues: Numerous subcutaneous nodules are present within the left flank seen on images #149, #164, #171, #200, and #210. The largest measures up to 1.4 cm. IMPRESSION: 1. Suboptimal examination without oral and IV contrast. 2. There is evidence of progressive metastatic disease as compared to 05/13/2017. 3. There is a 6 cm left lower lobe pulmonary mass lesion, as well as numerous pleural-based nodules at the left lung base. This is similar in appearance to 11/16/2017 but significantly progressed from 05/13/2017. 4. There are new subcentimeter nodules in the right upper and right lower lobes consistent with metastatic disease. 5. There are pathologically enlarged lymph nodes at the esophageal hiatus and in the left cardiophrenic region which are similar to 11/16/2017 but new from 05/13/2017, also consistent with metastatic disease. 6. Marked hepatomegaly. This likely represents lymphomatous involvement. Lesions seen by ultrasound were not apparent on this unenhanced CT scan. 7. There are numerous soft tissue implants identified in the left abdominal wall consistent with cutaneous disease. 8. There is a small left pleural effusion. 9. Findings suggest anemia. 10. There is nonspecific gallbladder thickening and edema, likely related to adjacent hepatocellular disease. There is no convincing CT evidence of acute cholecystitis. 11. The right kidney is atrophic and hydronephrotic, and contains calcified lesions. Additionally, there is a calcified left periaortic node. This likely represents treated disease and these findings are similar to prior studies. 12. Moderate constipation. 13. Destructive lesions involving the body of T12 and left sided ribs are similar to previous. 14. There is trace free fluid in the pelvis. 15. Additional findings as above. VENOUS DOPPLER LWR EXT BILA HISTORY: Pain. Edema. lymphoma, fever, cp, sob COMPARISON STUDY: None. FINDINGS: There is normal compressibility, flow, and augmentation within the bilateral lower extremity deep venous systems. IMPRESSION: No DVT within the right or left lower extremity. Consultations: Hematology/oncology Palliative care Medication Reconciliation New Medications: Magic Swizzle (Magic Swizzle - SUCRALFA/ALUM/MAG/DIPHEN/LIDO) 240 Ml Susp 3-4 TSP PO ACHS, #240 ML 100ml Sucralfate 50ml Maalox 50ml Diphenhydramine 40ml 2% Aq. Lidocaine Swish and Swallow Lidocaine (Lidocaine) 1 Patch Tdsy 1 PATCH TD QAM for 30 Days, #30 PATCH Apply to right lower chest. Leave on for 12 hours, then leave off for 12 hours Nystatin (Nystatin) 5 Ml Susp 5 ML PO QID for 10 Days, #40 DOSE Continued Medications: Acyclovir (Zovirax) 800 Mg Tab 800 MG PO BID Bisacodyl (Bisacodyl) 5 Mg Tab 2 TAB PO HS PRN for Constipation Cetirizine Hcl (Cetirizine Hcl) 10 Mg Chw 10 MG PO DAILY Dexlansoprazole (Dexilant) 60 Mg Cap 60 MG PO QAM Dexlansoprazole (Dexilant) 30 Mg Cap 30 MG PO HS PRN for gerd Docusate Sodium (Docusate Sodium) 100 Mg Cap 100 MG PO QAM Docusate Sodium (Docusate Sodium) 100 Mg Cap 200 MG PO HS Dronabinol (Marinol) 2.5 Mg Cap 5 MG PO TIDM PRN for IMPROVED APPETITE Escitalopram Oxalate (Lexapro) 20 Mg Tab 20 MG PO QAM Fluconazole (Diflucan) 200 Mg Tab 400 MG PO QAM, TAB Gabapentin (Gabapentin) 600 Mg Tab 600 MG PO TID Lorazepam (Ativan) 1 Mg Tab 1 MG PO HS PRN for Anxiety Methadone Hcl (Dolophine) 10 Mg Tab 20 MG PO Q8 Ondansetron Hcl (Zofran) 8 Mg Tab 8 MG PO Q8 PRN for Nausea, TAB Oxycodone Immediate Rel Tab (Roxicodone Ir) 5 Mg Tab 10-15 MG PO Q4 PRN for Pain, TAB Sennosides (Senna-Lax) 8.6 Mg Tab 2 TABS PO AMHS Sulfa/Trimethoprim (Bactrim Ds 800MG/160MG) Tab 1 TAB PO 3XWK, #6 TAB MON,WED,FRI Discharge Exam Patient reports feeling better compared to yesterday. He states he is less lethargic and weak. He still complains of a 2/10 aching pain in his right lower chest but states this is more intermittent now. The pain is worse with deep breaths and certain positions. The patient denies fevers, chills, sweats, palpitations, claudication, cough, wheezing, shortness of breath, nausea, vomiting, abdominal pain, dysuria, hematuria, urinary retention, paralysis, weakness, numbness and tingling. Did have long discussion with patient and family regarding next steps as an outpatient, future hospice, and end of life issues; palliative care and oncology also addressed these issues. Constitutional: No fever, No chills, No sweats Eyes: No worsening of vision, No eye pain, No diplopia ENT: No hearing loss, No nasal symptoms, No trouble swallowing Respiratory/chest: +Right lower chest pain, pleuritic. No cough, No wheezing, No shortness of breath Cardiovascular: No left chest pain, No claudication, No palpitations Abdomen: No pain, No nausea, No vomiting Musculoskeletal: No joint pain, No muscle pain, No swelling Genitourinary - Male: No dysuria, No urinary retention, No hematuria Neurologic: No paralysis, No weakness, No numbness/tingling Integumentary: No rash, No itch, No color change General appearance: +Appears chronically ill. Well-developed, well-nourished, no apparent distress Head: Normocephalic, atraumatic Eyes: Normal inspection, PERRL, EOMI ENT: +Dry oral mucosa. Oral candidiasis. Normal ENT inspection, hearing grossly normal, pharynx normal Neck: Supple, no JVD, trachea midline Respiratory/Chest: +Port right chest. Lungs clear to auscultation, normal breath sounds, no respiratory distress Cardiovascular: Regular rate & rhythm, no gallop, no murmur Abdomen/GI: Normal bowel sounds, non-tender, soft Extremities/Musculoskeletal: Normal inspection, no calf tenderness, no pedal edema Neurological/Psych: +Flat affect. Alert, oriented x 3 Skin: Normal color, warm/dry, no rash Hospital Course 32 y/o male with a history of recurrent diffuse large B cell lymphoma, pancytopenia, neuropathic pain, anxiety/depression, CKD stage III, and GERD who presented to the ED on 11/20 with pancytopenia and fevers at home. Pt afebrile in ER, VSS. CXR shows trace left pleural effusions and patchy airspace opacities in left lower lobe, and 6 cm retrocardiac lobulated mass like density again noted. CT of chest, abdomen and pelvis shows 6 cm LLL mass lesion similar to 11/16/17 study, new subcentimeter nodules in RUL and RLL c/w mets, pathologically enlarged lymph nodes at esophageal hiatus and left cardiophrenic region similar to 11/16, marked hepatomegaly likely d/t lymphomatous involvement , soft tissue implants in left abdominal wall, and destructive lesions at T12 similar to previous. Pancytopenia worse compared to 11/18. Pancytopenia, possible neutropenic fever vs tumor fever, symptomatic anemia-- ongoing -Admit to med/surg as hemodynamically stable, no signs of bleeding -Hgb 8.5 on 11/21, up from 7.0. S/p 2 units PRBC -PLT 18 on 11/21, up from 12. S/p 1 unit PLT. Will order second unit PLT to receive prior to discharge -Consult heme/onc. Pt follows w/Dr. Sosa ([phone]) at [facility] and Dr. Kris Bradford locally. Spoke with Dr. Carbone, adiel to give Neupogen daily here. Will institute outpatient neutropenic fever protocol w/close outpatient follow up. Will provide outpatient abx as pt concerned about this. Ok to give more platelets. -Neupogen 480 mcg SC qd, pt also has this at home -Neutropenic precautions -Febrile again overnight, Tmax 38.5 Fevers, possible PNA--possible PNA on CXR but no consolidations seen on chest CT -Cefepime and vancomycin for now pending blood cultures. BCx still pending. Dr. Carbone to provide outpt oral abx in addition or instead of chronic suppression abx per pt request -NSS at 75 cc/hr -Lactic acid WNL Transaminitis--improving -AST, ALT, alk phos trending down 11/21 -Tbili elevated at 1.3 -INR WNL -Continue to monitor Acute kidney injury on CKD stage III--resolving -Creatinine 1.86 on 11/21, down from 2.03 -Baseline creatinine 1.6-1.8 Hypomagnesemia, hypophosphatemia--improving -Magnesium 1.8 on 11/21, up from 1.4 -Phosphorus 2.1 on 11/21, up from 1.8 -K phos 9 mmol x 1 Diffuse B cell lymphoma--mets to lung, liver -Heme/onc as above -Pt just started new chemo regimen 11/15, scheduled for [id number] -Continue acyclovir, fluconazole, and Bactrim for chronic suppression -Pt requested palliative care consult -Spoke with Nuha from palliative. Pt considering home hospice and wants to stay at home as much as possible but not there due to his 3 y/o son. Would like to be DNR but will discuss w/. Will complete POLST prior to discharge. Recommend nystatin for thrush. Pt would like to continue abx although he knows the fevers are likely tumor related -Discussed w/pt with and father present. He states he is not quite ready for hospice just yet as he wants to try to get his blood counts up a bit first. Agreeable to home health, can pick one that also does hospice for smooth transition. Spoke w/case management about this. Pt requests another unit of PLT before discharge and requests to be discharged tonight after this is completed -Also spoke with Dr. Rivera. POLST form completed. Pt to be DNR. Oral ulcers secondary to chemo, oral candidiasis -Increase Magic Swizzle to q4h prn -Nystatin 5 ml PO QID Neuropathic pain -Continue gabapentin 600 mg PO q8h, methadone 20 mg PO q8h, oxycodone 10 mg PO q4h prn pain Anxiety, depression -Continue Lexapro 20 mg PO qd and Ativan 1 mg PO hs prn GERD -Pt may continue Dexilant brought from home DVT prophylaxis -No chemical ppx due to severe anemia and thrombocytopenia -GILBERTO cuellar and SCDs Code Status -Level V, DO NOT RESUSCITATE Total time spent in direct patient care across multiple visits, conversations with all consultants and case management, 90 minutes. Total Time Spent: Greater than 30 minutes This includes examination of the patient, discharge planning, medication reconciliation, and communication with other providers. Discharge Instructions Please refer to the electronic Patient Visit Report (Discharge Instructions) for additional information.
[2017-11-22] MEDS ORDERED: FILGRASTIM 480 MCG/1.6 ML VIAL SC SCH (08:00)
[2017-11-22] MEDS ORDERED: SULFAMETHOXAZOLE/TRIMETHOPRIM DS 800/160MG TAB PO SCH (09:00)
[2017-11-22] MEDS ORDERED: VANCOMYCIN TROUGH ONE (17:30)
--- NOTE | 2017-11-27 13:00 | EDITING REQUIRED CODING QUERY ---
CODING QUERY To promote full compliance with coding requirements relating to patient care, provider participation is requested in all cases of cpc coder uncertainty. Please assist us with the question(s) below: Coding Question(s): 1. Please clarify below, in your clinical opinion, regarding the Pancytopenia. Please check all that are possible. (x ) Pancytopenia - possibly antineoplastic chemotherapy induced ( ) Pancytopenia - possibly due to the Neoplasm ( ) Pancytopenia - unknown possible etiology ( ) Pancytopenia - Other: Specify 2. Please clarify below, in your clinical opinion, regarding Neutropenic Fever. Please check all that are possible. ( x ) Neutropenic Fever possibly due to infection ( ) Neutropenic Fever possibly due to Neoplasm ( ) Neutropenic Fever possibly due to chemotherapy ( ) Neutropenic Fever - Unknown possible etiology ( ) Neutropenic Fever possibly due to other: Specify Physician's Response(s): Thank you Cornelia Shepard Principal Diagnosis: "_that condition established after study, to be chiefly responsible for occasioning the admission of the patient to the hospital for care." Co-Existing Principal Diagnosis: "_when two or more diagnoses equally meet the criteria for principal diagnosis as determined by the circumstances of admission, diagnostic work up, and/or therapy provided, and the Alphabetic Index, Tabular List, or another coding guideline does not provide sequencing direction, any one of the diagnoses may be sequenced first." "When the physician has documented what appears to be a current diagnosis in the body of the record, but has not included the diagnosis in the final diagnostic statement, the physician should be asked whether the diagnosis should be added." (Source Coding Clinic 2 QTR90. p3-4)
== END 2017-11-21 19:45 | disposition home health service (06) | DRG 808 ==
LOC: C.EDB 09:13 → UNDOADMIN 13:51 → C.4E 13:51 → ENRESERV 14:14
PROVIDERS: ADMIT Hospitalist; ATTEND Hospitalist
DX: D70.3 Neutropenia due to infection (principal); J18.9 Pneumonia, unspecified organism; C85.10 Unspecified B-cell lymphoma, unspecified site; N17.9 Acute kidney failure, unspecified; E87.1 Hypo-osmolality and hyponatremia; C78.7 Secondary malignant neoplasm of liver and intrahepatic bile duct; C78.00 Secondary malignant neoplasm of unspecified lung; B37.0 Candidal stomatitis; D61.810 Antineoplastic chemotherapy induced pancytopenia; R50.81 Fever presenting with conditions classified elsewhere; E83.42 Hypomagnesemia; E83.39 Other disorders of phosphorus metabolism; K21.9 Gastro-esophageal reflux disease without esophagitis; N18.3 Chronic kidney disease, stage 3 (moderate); F32.9 Major depressive disorder, single episode, unspecified; F41.9 Anxiety disorder, unspecified; Z79.899 Other long term (current) drug therapy; Z80.7 Family history of other malignant neoplasms of lymphoid, hematopoietic and related tissues; Z82.49 Family history of ischemic heart disease and other diseases of the circulatory system

== ENCOUNTER → 2017-11-25 | Outpatient (CLI) | payer OTHER ==
[~2017-11-25] MED LIST changes: +AMOX1SUS56 PO; +DOCU-94 PO; +DXM/4 PO; +LDDP5 TD; +MBXC PO; +NYSS5 PO
[2017-11-25 15:24] LABS: ALBUMIN 2.4 gm/dl (3.4-5.0); ALKALINE PHOSPHATASE 367 U/L (45-117); ALT/SGPT 230 U/L (12-78); AST/SGOT 107 U/L (15-37); BLOOD UREA NITROGEN 65 mg/dl (7-18); CALCIUM 10.8 mg/dl (8.5-10.1); CARBON DIOXIDE 24 mmol/L (21-32); CREATININE 2.15 mg/dl (0.60-1.40); GLUCOSE 93 mg/dl (70-99); POTASSIUM 4.7 mmol/L (3.5-5.1); SODIUM 137 mmol/L (136-145); TOTAL PROTEIN 5.8 gm/dl (6.4-8.2)
[2017-11-25 18:29] LABS: HEMATOCRIT 27.2 % (42-52); HEMOGLOBIN 9.2 g/dL (14.0-18.0); MEAN CELL VOLUME 99.6 fL (80-100); MEAN CORPUSCULAR HEMOGLOBIN 33.7 pg (25-34); MEAN CORPUSCULAR HGB CONC 33.8 g/dl (32-36); PLATELET COUNT 6 K/uL (130-400); RED CELL DISTRIBUTION WIDTH CV 21.5 % (11.5-14.5); RED CELL DISTRIBUTION WIDTH SD 77.1 fL (36.4-46.3); WHITE BLOOD COUNT 0.57 K/uL (4.8-10.8)
[2017-11-25 18:43] LABS: NUCLEATED RED BLOOD CELL ABS 0.04 K/uL (0-0)
--- NOTE | 2017-12-03 06:20 | CODING QUERY NO DIAGNOSIS ---
Valid Physician Order Needed A valid physician order must be submitted in order to properly bill for the service(s) provided, including date of service(s), valid diagnosis, and physician signature. If these tests are done on a recurring basis the original physican order must be submitted in order to code and bill for the service(s) provided. Please fax us the original, signed physician order so that we may expedite billing to [phone] DOS 11/25/17 * CBC with Auto Diff * [facility] * CMP * Magnesium Thank you Usha Lobo Health Information Management
== END | disposition home or self-care (01) ==
LOC: C.LABSPEC 13:22
PROVIDERS: ATTEND Internal Medicine Hematology & Oncology
DX: C85.10 Unspecified B-cell lymphoma, unspecified site (principal)

== ENCOUNTER 2017-11-26 12:34 | Emergency (ER) | payer OTHER ==
[~2017-11-26] VITALS: Ht 185.4 cm; Wt 96.5 kg
[~2017-11-26 12:34] MED LIST changes: -AMOX1SUS56 PO; -DOCU-94 PO; -DXM/4 PO
[2017-11-26] MEDS ORDERED: SODIUM CHLORIDE 0.9% 1000ML 500 ML IV ONE ×2 (12:56)
[2017-11-26 13:01] VITALS: Ht 185.4 cm; Wt 96.5 kg
[2017-11-26 13:16] LABS: PTT PATIENT 26.6 SECONDS (21.0-31.0)
--- NOTE | 2017-11-26 13:17 | DIAGNOSTIC IMAGING REPORT ---
CHEST ONE VIEW PORTABLE CLINICAL HISTORY: 32 years-old Male presenting with Evaluate Fever/Sepsis. TECHNIQUE: Portable upright AP view of the chest was obtained. COMPARISON: 11/20/2017. FINDINGS: Right subclavian Mediport terminates in the lower SVC and has been accessed. Cardiomediastinal silhouette normal. Redemonstration of the 6 cm dominant mass in the left lower lung. Minimal surrounding opacity at the left lung base related the paramediastinal region. No new focal opacity. No large effusion or pneumothorax. Osseous structures normal. Upper abdomen normal. IMPRESSION: 1. No radiographic change in the 6 cm left lower lung mass and minimal surrounding infiltrate. 2. No new superimposed infiltrate to suggest pneumonia. Electronically signed by: Eber Panchal M.D. 11/26/2017 1:16 PM Dictated Date/Time: 11/26/2017 1:14 PM
[2017-11-26 13:26] LABS: ALBUMIN 2.2 gm/dl (3.4-5.0); CALCIUM 10.5 mg/dl (8.5-10.1); CREATININE 2.36 mg/dl (0.60-1.40); POTASSIUM 4.8 mmol/L (3.5-5.1); TOTAL PROTEIN 5.2 gm/dl (6.4-8.2)
[2017-11-26 13:39] LABS: HEMATOCRIT 25.5 % (42-52); HEMOGLOBIN 8.8 g/dL (14.0-18.0); MEAN CELL VOLUME 99.6 fL (80-100); MEAN CORPUSCULAR HEMOGLOBIN 34.4 pg (25-34); MEAN CORPUSCULAR HGB CONC 34.5 g/dl (32-36); NUCLEATED RED BLOOD CELL ABS 0.06 K/uL (0-0); PLATELET COUNT 3 K/uL (130-400); RED CELL DISTRIBUTION WIDTH CV 21.3 % (11.5-14.5); WHITE BLOOD COUNT 3.32 K/uL (4.8-10.8)
[2017-11-26 14:19] VITALS: BP 95/58; PULSE 79; TEMP 36.7; O2SAT 96
[2017-11-26 14:35] VITALS: BP 107/63; PULSE 74; O2SAT 99
[2017-11-26 15:05] VITALS: BP 97/53; PULSE 78; TEMP 36.8; O2SAT 98
[2017-11-26] MEDS ORDERED: DOCU-94 PO (15:21)
[2017-11-26] MEDS ORDERED: AMOX1SUS56 PO (15:21)
[2017-11-26] MEDS ORDERED: DXM/4 PO (15:21)
--- NOTE | 2017-11-26 15:33 | EMERGENCY ROOM VISIT NOTE ---
History Report prepared by Alie: Alice Haddad Under the Supervision of: Dr. Sung Ortiz M.D. First contact with patient: 12:45 Chief Complaint: HYPOTENSION Stated Complaint: LOW BP, FEVER History of Present Illness The patient is a 32 year old male who presents to the Emergency Room with complaints of hypotension today. The patient states that he was getting platelets today at [facility] and that his blood pressure was low. Per mother, the patient's blood pressure was 69/40 when he got to [facility] today. He states that he did not receive any platelets today. The patient reports that when he got to the clinic that he was hot and states that his temperature was 99.3. He reports feeling less weak and tired being here. The patient denies any new pain. Per mother, the patient does have some scabs on his legs and has been scratching at them but has not had any active bleeding. The patient reports that he has been trying his best to eat and drink okay. Per mother, the patient has been eating chicken and pasta. Per mother, the patient has thrush in his mouth that has been getting better. His mother states that when the patient's thrush was worse that he was primarily having fluids and soft foods. Per mother, the patient no longer follows at [place] and is following with healthcare providers here. Per mother, the patient had liver ultrasounds and abdominal CT scans here. His mother states that she called Dr. Carbone's office but that he is not in today. His mother states that the patient gets Neupogen shots but that they are almost completely out. Source of History: patient, parent Onset: today Position: other (generalized) Quality: other (hypotension) Timing: constant Associated Symptoms: + weakness Review of Systems See HPI for pertinent positives and negatives. A total of ten systems were reviewed and were otherwise negative. Past Medical & Surgical Medical Problems: (1) Anemia (2) GERD (gastroesophageal reflux disease) (3) Hypotension (4) Lymphoma (5) Neutropenic fever (6) Neutropenic fever (7) Sore throat Surgical Problems: (1) History of liver biopsy Family History Cancer (lymphoma) Heart disease Myocardial infarction Social History Smoking Status: Never Smoker Drug Use: none Marital Status: Housing Status: lives with significant other Occupation Status: employed Current/Historical Medications Scheduled Acyclovir (Zovirax), 800 MG PO BID Amoxicillin & Pot Clavulanate (Augmentin Es-600), 600 MG PO BID Dexamethasone (Decadron), 20 MG PO QAM Docusate Sodium (Docusate Sodium), 100 MG PO QAM Docusate Sodium (Docusate Sodium), 200 MG PO HS Docusate Sodium (Colace), 1 CAP PO BID Escitalopram Oxalate (Lexapro), 20 MG PO QAM Fluconazole (Diflucan), 400 MG PO QAM Gabapentin (Gabapentin), 600 MG PO TID Lidocaine (Lidocaine), 1 PATCH TD QAM Magic Swizzle (Magic Swizzle - SUCRALFA/ALUM/MAG/DIPHEN/LIDO), 3-4 TSP PO ACHS Methadone Hcl (Dolophine), 20 MG PO Q8 Nystatin (Nystatin), 5 ML PO QID Sennosides (Senna-Lax), 2 TABS PO AMHS Sulfa/Trimethoprim (Bactrim Ds 800MG/160MG), 1 TAB PO 3XWK Scheduled PRN Dronabinol (Marinol), 5 MG PO TIDM PRN for IMPROVED APPETITE Lorazepam (Ativan), 1 MG PO HS PRN for Anxiety Ondansetron Hcl (Zofran), 8 MG PO Q8 PRN for Nausea Oxycodone Immediate Rel Tab (Roxicodone Ir), 10-15 MG PO Q4 PRN for Pain Allergies Coded Allergies: Erythromycin (Verified Adverse Reaction, Intermediate, GI SYMPTOMS, 11/26/17 ) Prochlorperazine (Verified Adverse Reaction, Unknown, change in mental status, 11/26/17) Physical Exam Vital Signs Date Time Temp Pulse Resp B/P (MAP) Pulse Ox O2 Delivery O2 Flow Rate FiO2 11/26/17 17:03 71 18 99/60 100 11/26/17 16:05 81 20 101/59 98 11/26/17 15:05 36.8 78 20 97/53 98 11/26/17 14:35 74 18 107/63 99 11/26/17 14:19 36.7 79 18 95/58 96 11/26/17 13:57 77 16 99/55 99 Room Air 11/26/17 12:49 90 11/26/17 12:41 36.9 106 20 79/55 97 Room Air Physical Exam GENERAL: Awake, alert, in no distress HENT: Normocephalic, atraumatic. Dry and tacky mucous membranes. EYES: Normal conjunctiva. Sclera non-icteric. NECK: Supple. No nuchal rigidity. RESPIRATORY: Clear to auscultation. No wheezes. Normal respiratory effort. CARDIAC: Tachycardic. Normal rhythm. Extremities warm and well perfused. GI: Soft, non-distended. No tenderness to palpation. No rebound or guarding RECTAL: Deferred. MUSCULOSKELETAL: Atraumatic. Chest examination reveals no tenderness. Right upper chest wall port. LOWER EXTREMITIES: Calves are equal size bilaterally and non-tender. No edema. Small healing abrasions without active bleeding or fluctuance. NEURO: Normal sensorium. No sensory or motor deficits noted. No facial droop. SKIN: Warm and dry. No jaundice noted. A trace amount of left forearm petechia present. Medical Decision & Procedures ER Provider Diagnostic Interpretation: Radiology results as stated below per my review and radiologist interpretation: CHEST ONE VIEW PORTABLE CLINICAL HISTORY: 32 years-old Male presenting with Evaluate Fever/Sepsis. TECHNIQUE: Portable upright AP view of the chest was obtained. COMPARISON: 11/20/2017. FINDINGS: Right subclavian Mediport terminates in the lower SVC and has been accessed. Cardiomediastinal silhouette normal. Redemonstration of the 6 cm dominant mass in the left lower lung. Minimal surrounding opacity at the left lung base related the paramediastinal region. No new focal opacity. No large effusion or pneumothorax. Osseous structures normal. Upper abdomen normal. IMPRESSION: 1. No radiographic change in the 6 cm left lower lung mass and minimal surrounding infiltrate. 2. No new superimposed infiltrate to suggest pneumonia. Electronically signed by: Eber Panchal M.D. 11/26/2017 1:16 PM Dictated Date/Time: 11/26/2017 1:14 PM Laboratory Results 11/26/17 12:52 Red Blood Count 2.56, Mean Corpuscular Volume 99.6, Mean Corpuscular Hemoglobin 34.4, Mean Corpuscular Hemoglobin Concent 34.5 11/26/17 12:52 Test 11/26/17 12:52 11/26/17 13:00 White Blood Count 3.32 K/uL (4.8-10.8) Red Blood Count 2.56 M/uL (4.7-6.1) Hemoglobin 8.8 g/dL (14.0-18.0) Hematocrit 25.5 % (42-52) Mean Corpuscular Volume 99.6 fL (80-100) Mean Corpuscular Hemoglobin 34.4 pg (25-34) Mean Corpuscular Hemoglobin Concent 34.5 g/dl (32-36) Platelet Count 3 K/uL (130-400) RDW Standard Deviation 77.0 fL (36.4-46.3) RDW Coefficient of Variation 21.3 % (11.5-14.5) Nucleated RBC Absolute Count (auto) 0.06 K/uL (0-0) Neutrophils % (Manual) 87.3 % Lymphocytes % (Manual) 0.8 % Monocytes % (Manual) 11.9 % Nucleated Red Blood Cells % 1.7 % Neutrophils # (Manual) 2.90 K/uL (1.4-6.5) Total Absolute Neutrophils 2.90 K/uL (1.4-6.5) Lymphocytes # (Manual) 0.03 K/uL (1.2-3.4) Total Absolute Lymphocytes 0.03 K/uL (1.2-3.4) Monocytes # (Manual) 0.40 K/uL (0.11-0.59) Toxic Granulation 3+ Toxic Vacuolation 1+ Dohle Bodies 1+ Platelet Estimate SIGNIFIC DECREASED Anisocytosis PRESENT Prothrombin Time 10.7 SECONDS (9.0-12.0) Prothromb Time International Ratio 1.0 (0.9-1.1) Activated Partial Thromboplast Time 26.6 SECONDS (21.0-31.0) Partial Thromboplastin Ratio 1.0 Anion Gap 9.0 mmol/L (3-11) Est Creatinine Clear Calc Drug Dose 54.0 ml/min Estimated GFR () 40.1 Estimated GFR (Non- 34.6 BUN/Creatinine Ratio 25.3 (10-20) Lactic Acid Level 2.6 mmol/L (0.4-2.0) Calcium Level 10.5 mg/dl (8.5-10.1) Total Bilirubin 0.7 mg/dl (0.2-1) Direct Bilirubin 0.3 mg/dl (0-0.2) Aspartate Amino Transf (AST/SGOT) 103 U/L (15-37) Alanine Aminotransferase (ALT/SGPT) 157 U/L (12-78) Alkaline Phosphatase 367 U/L (45-117) Total Protein 5.2 gm/dl (6.4-8.2) Albumin 2.2 gm/dl (3.4-5.0) Lipase 558 U/L (73-393) Urine Color DK YELLOW Urine Appearance CLEAR (CLEAR) Urine pH 5.5 (4.5-7.5) Urine Specific [place] 1.019 (1.000-1.030) Urine Protein 1+ (NEG) Urine Glucose (UA) NEG (NEG) Urine Ketones NEG (NEG) Urine Occult Blood NEG (NEG) Urine Nitrite NEG (NEG) Urine Bilirubin NEG (NEG) Urine Urobilinogen NEG (NEG) Urine Leukocyte Esterase NEG (NEG) Urine WBC (Auto) 1-5 /hpf (0-5) Urine RBC (Auto) 5-10 /hpf (0-4) Urine Hyaline Casts (Auto) 5-10 /lpf (0-5) Urine Epithelial Cells (Auto) 5-10 /lpf (0-5) Urine Bacteria (Auto) NEG (NEG) Laboratory results reviewed by me Medications Administered Medications (Trade) Dose Ordered Sig/Sidney Route Start Time Stop Time Status Last Admin Dose Admin Sodium Chloride 500 ml @ 999 mls/hr Q31M ONCE IV 11/26/17 12:56 11/26/17 13:26 DC 11/26/17 12:56 999 MLS/HR Sodium Chloride 500 ml @ 999 mls/hr Q31M ONCE IV 11/26/17 12:56 11/26/17 13:26 DC 11/26/17 12:56 999 MLS/HR Heparin Sodium (Porcine) (Heparin 100 Unit/ml 5ml Flush) 5 ml STK-MED ONCE .ROUTE 11/26/17 16:55 11/26/17 16:56 DC 11/26/17 16:55 5 ML ECG Per My Interpretation Indication: other (hypotension) Rate (beats per minute): 81 Rhythm: normal sinus Findings: other (normal intervals, no ST segment elevation) Change: no significant change (from 11/20/17) ED Course 1246: The patient was evaluated in room C3. A complete history and physical exam was performed. 1256: Ordered Sodium Chloride 500 ml @ 999 mls/hr IV, Sodium Chloride 500 ml @ 999 mls/hr IV. 1437: The patient was blood consented and given a copy of his lab results. 1504: I discussed the patient's case with Dr. CampbellOncology who agrees with the plan for discharge. 1613: I discussed the patient's case with Dr. Anderson Oncology who agrees with the plan for discharge home. 1626: I reevaluated the patient and updated him and his mother. Discussed results and discharge instructions: He verbalized understanding and agreement. The patient is ready for discharge. Medical Decision Triage Nursing notes reviewed. The patient's presentation and history were concerning for sepsis, dehydration, thrush, thrombocytopenia, and electrolyte abnormalities. Patient with significant history of T-cell lymphoma and pancytopenia found to have significant thrombocytopenia outside labs and reported for platelet transfusion today. Prior to this was noted to be hypotensive. Recovering from thrush on fluconazole intake and prophylactic Levaquin at this time. Decreased oral intake and feels extremely dry. Hypotensive upon arrival but mentating appropriately. States he has been having chronic pain of his lower rib cage. Reports a "fever" of 99.3 earlier. Reviewed recent records from the last several weeks with his 2 prior admissions here. Given fluid bolus and cultures and blood work obtained. Platelets are ordered given his significant thrombocytopenia. Liver functions improving compared to previous. Lipase is elevated and worsened kidney function. Lactate elevated 2.4. Patient's mother inquired about refilling his Neupogen prescription but do not feel comfortable doing this at this time. Refer to his oncologist and did call and discuss the case with them. Blood pressure improving. Given the elevated lipase concerned that he may be developing possible pancreatitis. With his decreased oral intake feel that admission for hydration and further monitoring would be an option however had discussion with patient who really just wants to go home. Multiple admission in last several weeks and difficult underlaying lymphoma. He is tolerating oral intake here and ate multiple food items. Feels improved after hydration with improved blood pressure. Do not believe this is bacterial sepsis. Patient states that he is heading towards hospice in the next 1-2 weeks and just wants to spend as much time at home as possible. Discussed with the oncology group who can assist with arranging additional outpatient treatment. Has follow-up with them tomorrow morning. Discussed with Dr. Sosa the patient's oncologist at [facility] who agrees. Discussed returning at any time for further treatment as needed. Medication Reconcilliation Current Medication List: was personally reviewed by me Blood Pressure Screening Patient's blood pressure: Low blood pressure Blood pressure disposition: Referred to PCP Consults Time Called: 1450 Consulting Physician: Dr. Fitzgerald- Oncolog Returned Call: 1506 I discussed the patient's case with Dr. CampbellOncology who agrees with the plan for discharge. Additional Consults: Time Called: 1527 Consulted Physician: Dr. Ender Aaron Oncology Returned Call: [phone] Additional Comments: I discussed the patient's case with Dr. Anderson Oncology who agrees with the plan for discharge home. Impression Primary Impression: Dehydration Additional Impression: Thrombocytopenia Scribe Attestation The scribe's documentation has been prepared under my direction and personally reviewed by me in its entirety. I confirm that the note above accurately reflects all work, treatment, procedures, and medical decision making performed by me. Departure Information Dispostion Home / Self-Care Referrals No Doctor, Assigned (PCP) Dagoberto Carbone MD Forms HOME CARE DOCUMENTATION FORM, IMPORTANT VISIT INFORMATION, WORK / SCHOOL INSTRUCTIONS Patient Instructions Dehydration, My [facility], Thrombocytopenia Additional Instructions Please continue to stay as best she can. Maintain close contact with your oncologist here. If at any time you have new or concerning symptoms please feel free to return for reevaluation. Would recommend close outpatient follow- up tomorrow with your doctor to monitor your kidney function and recheck your blood counts. They can also assist you with arranging additional home care if needed and with your Neupogen prescription. Problem Qualifiers
[2017-11-26 16:05] VITALS: BP 101/59; PULSE 81; O2SAT 98
[2017-11-26 17:03] VITALS: BP 99/60; PULSE 71; O2SAT 100
== END 2017-11-26 17:05 | disposition home or self-care (01) ==
LOC: C.EDB 12:35 → C.EDC 17:05
DX: E86.0 Dehydration (principal); D69.6 Thrombocytopenia, unspecified; K21.9 Gastro-esophageal reflux disease without esophagitis; I95.9 Hypotension, unspecified; C85.90 Non-Hodgkin lymphoma, unspecified, unspecified site; Z88.8 Allergy status to other drugs, medicaments and biological substances

== ENCOUNTER → 2017-11-29 | Outpatient (CLI) | payer OTHER ==
[~2017-11-29] MED LIST changes: +AMOX1SUS56 PO; -BISA1TAB15 PO; -CETI10CH PO; -DEXL30CA5 PO; -DEXL60CA4 PO; +DOCU-94 PO; +DXM/4 PO
[2017-11-29 14:05] LABS: NUCLEATED RED BLOOD CELL ABS 0.15 K/uL (0-0)
[2017-11-29 14:07] LABS: HEMATOCRIT 24.4 % (42-52); HEMOGLOBIN 8.3 g/dL (14.0-18.0); MEAN CELL VOLUME 100.4 fL (80-100); MEAN CORPUSCULAR HEMOGLOBIN 34.2 pg (25-34); MEAN PLATELET VOLUME 7.6 fL (7.4-10.4); PLATELET COUNT 51 K/uL (130-400); RED CELL DISTRIBUTION WIDTH CV 21.3 % (11.5-14.5); RED CELL DISTRIBUTION WIDTH SD 77.1 fL (36.4-46.3); WHITE BLOOD COUNT 5.91 K/uL (4.8-10.8)
[2017-11-29 14:16] LABS: ALBUMIN 2.1 gm/dl (3.4-5.0); ALKALINE PHOSPHATASE 388 U/L (45-117); ALT/SGPT 405 U/L (12-78); AST/SGOT 524 U/L (15-37); BLOOD UREA NITROGEN 52 mg/dl (7-18); CALCIUM 11.2 mg/dl (8.5-10.1); CARBON DIOXIDE 23 mmol/L (21-32); CREATININE 2.67 mg/dl (0.60-1.40); GLUCOSE 76 mg/dl (70-99); POTASSIUM 4.7 mmol/L (3.5-5.1); SODIUM 133 mmol/L (136-145); TOTAL PROTEIN 5.6 gm/dl (6.4-8.2)
[2017-11-29 14:35] LABS: BASO % 0.2 %; BASO ABS # 0.01 K/uL (0-0.2); IG# 0.13 K/uL (0.00-0.02); LYMPH ABS # 0.12 K/uL (1.2-3.4); MONO % 3.4 %; NEUT % 92.2 %; NEUT ABS # 5.45 K/uL (1.4-6.5)
== END | disposition home or self-care (01) ==
LOC: C.LABSPEC 13:29
PROVIDERS: ATTEND Internal Medicine Hematology & Oncology
DX: C85.10 Unspecified B-cell lymphoma, unspecified site (principal)